=== PATIENT | female | born 1965 | race Caucasian/White ===

== ENCOUNTER → 2017-05-14 | Outpatient (CLI) | payer MEDICARE, BC ==
[2015-06-25 12:47] VITALS: BMI 43.0
[~2017-05-14] MED LIST: ACE3 PO; ALB0.5 IH; ALBU8.5H IH; ALBU8.5H INH; AMLO-101 PO; AMLO-96 PO; AMOX-362 PO; AMOX-559 PO; ARI2 PO; ASPI-1471 PO; AZIT-1 PO; AZIT-18 PO; BENZ100C26 PO; BENZ100C4 PO; BISA-229 PO; BUDE10.2 INH; BUPR-126 PO; BUPR-134 PO; BUPR200T18 PO; BUTA1CAP4 PO; BUTA1CAP6 PO; CAR6.25 PO; CEF300 PO; CEFD300C35 PO; CEFU250T11 PO; CEPH-13 PO; CEPH250C37 PO; CEPH500C24 PO; CHLO25TA19 PO; CLIN300C99 PO; CLO10 MT; CLON-298 PO; CODE118S5; CYA1000 PO; CYCL10TA29 PO; DEX1 PO; DIA5 PO; DIAZ-305 PO; DIAZ-311 PO; DICL100G39 TOP; DIPH-740 PO; DIVA-1 PO; DIVA-6 PO; DIVSR125 PO; DOCU-416 PO; DOXY-179 PO; DOXY-181 PO; DOXYCYCLINE; DULO30CA35 PO; DULO60CA56 PO; EPIN0.3P15 IM; ESCI10TA8 PO; ESCI20TA38 PO; ESTR-25 PO; FAMO20TA28 PO; FAMO40TA66 PO; FLU45SYR25 IM ONLY; FLUC150T40 PO; FLUT16SP19 NS; FLUT1DIS28 IH; FLUT1DIS29 IH; FURO20TA19 PO; GABA-547 PO; HALO5TAB17 PO; HYDR-2966 PO; HYDR-317; HYDR-385 PO; HYDR-4225 PO; HYDR100C9 PO; HYDR12.556 PO; HYDR12.561 PO; HYDR25CA13 PO; HYDR25CA83 PO; HYDR28CR TP; HYDR2TAB74 PO; HYDR473S13 PO; HYDR50CA47 PO; IBUP-56 PO; IBUP600T22 PO; IBUP800T37 PO; IPRA0.2S8 IH; IPRA3AMP21 IH; KET10 PO; LEVO50TA86 PO; LIOT25TA19 PO; LISI-351 PO; LOR5/325 PO; LURA20TA PO; MAGN250T34 PO; MAGN250T5 PO; MAGN300C3 PO; MAGN400T52 PO; MECL25TA27 PO; MELO-205 PO; MELO-207 PO; META-1 PO; META800T18 PO; METH-280 PO; METH4TAB66 PO; METO25TA23 PO; METO50TA19 PO; MULT-865 PO; MULT1CAP59 PO; NO MEDS; NOR25 PO; NYST15CR32 TP; NYST60PO9 TP; OMEG1CAP39 PO; OMEP-137 PO; OMEP40CA48 PO; ONDA4TAB PO; ONDA4TAB97 PO; ORP100 PO; OXYC-869 PO; PANT40TA65 PO; PARO30TA71 PO; PHEN30SP8 MT; POTA-23 PO; POTA20TA94 PO; POTA8TAB41 PO; PRAM0.1225 PO; PRAM0.2524 PO; PRAM0.5T23 PO; PRAM0.5T27 PO; PRED-1 PO; PRED20TA6 PO; PROM-110 PO; PROM5SYR PO; QUET50TA21 PO; RANI-324 PO; RANI150C17 PO; RIZA10TA PO; ROBC PO; SUMA25TA26 PO; SUMA25TA27 PO; TIO18R INH; TIZA4CAP6 PO; TOPI-121 PO; TRAM-420 PO; TRIA5T TOP; VARE1TAB3 PO; [UNRECOGNIZED DRUG - CODE] PO; [UNRECOGNIZED DRUG - OTHER]; depakote
== END ==
LOC: LAB 11:34
PROVIDERS: ATTEND Nurse Practitioner Psychiatric/Mental Health
DX: Z51.81 Encounter for therapeutic drug level monitoring (principal); Z79.899 Other long term (current) drug therapy
CPT/HCPCS: 36415; 80164; 82040; 82247; 82310; 82374; 82435; 82565; 82947; 84075; 84132; 84155; 84295; 84450; 84460; 84520

== ENCOUNTER → 2017-05-18 | Outpatient (CLI) | payer MEDICARE, BC ==
[2015-06-25 12:47] VITALS: BMI 43.0
== END ==
LOC: LAB 13:45
PROVIDERS: ATTEND Emergency Medicine
DX: R20.2 Paresthesia of skin (principal)
CPT/HCPCS: 36415; 82607; 84443

== ENCOUNTER → 2017-05-26 | Outpatient (CLI) | payer MEDICARE, BC ==
[2015-06-25 12:47] VITALS: BMI 43.0
--- NOTE | 2017-05-26 17:32 | RADIOLOGY IMAGING REPORT ---
FACILITY: [facility] PATIENT NAME: FLORENCIO CRUZ : [id number] MR: [id number] V: [id number] EXAM DATE: ORDERING PHYSICIAN: SKINNY EMMANUEL TECHNOLOGIST: Marlee Rios PROCEDURE:BILATERAL DIGITAL SCREENING MAMMOGRAM WITH CAD ASSISTED INTERPRETATION & 3D TOMOSYNTHESIS COMPARISON:Prior mammograms 03/04/16, 08/23/15, 04/26/15 INDICATIONS:Screening FINDINGS: A small amount of fibroglandular tissue is seen throughout the breasts. The parenchymal pattern has remained stable allowing for difference in mammographic technique & patient positioning. Again noted are numerous scattered calcifications throughout the breasts. There is a stereotactic biopsy clip in the upper outer quadrant of the left breast. There is no evidence of malignant appearing mass, malignant appearing calcifications or other secondary sign of malignancy in either breast. DIAGNOSTIC CATEGORY 2--BENIGN FINDING. RECOMMENDATIONS: ROUTINE MAMMOGRAM AND CLINICAL EVALUATION. IMPRESSION: BIRADS 2: Benign finding No significant abnormality is seen Dictated by: Cris Verma M.D. on 05/26/2017 at 11:43 Transcribed by: TAMI on 05/26/2017 at 13:29 Approved by: Cris Verma M.D. on 05/26/2017 at 17:32 [facility]
== END ==
LOC: MAMO 02:23
PROVIDERS: ATTEND Emergency Medicine
DX: Z12.31 Encounter for screening mammogram for malignant neoplasm of breast (principal); R92.1 Mammographic calcification found on diagnostic imaging of breast
CPT/HCPCS: 77063; 77067

== ENCOUNTER 2017-06-02 15:03 | Emergency (ER) | payer MEDICARE, BC ==
[2015-06-25 12:47] VITALS: Wt 120.2 kg
--- NOTE | 2017-06-02 15:18 | ER Report ---
History and Physical Time Seen By MD: 15:17 HPI/ROS CHIEF COMPLAINT: Short of breath HISTORY OF PRESENT ILLNESS: This is a 51-year-old female who presents to the emergency department for stomach joint aches and increased shortness of breath. Patient states that since Thursday she's had some increased shortness of breath she feels secondary to her COPD. Patient also states since Thursday she's had aches in all her joints just not feeling very well no chills no fevers, just doesn't feel very well. Patient states she's been using more of her nebulizers at home. Patient is still using her 2 L of oxygen as prescribed. Patient denies chest pain, nausea, vomiting, diarrhea or dysuria. Patient also states that she does feel like she has some edema to her lower extremities that has increased since Thursday as well. REVIEW OF SYSTEMS: Constitutional: No fever, no chills. Eyes: No discharge. ENT: No sore throat. Cardiovascular: No chest pain, no palpitations. Respiratory: As above. Gastrointestinal: No abdominal pain, no vomiting. Genitourinary: No hematuria. Musculoskeletal: As above. Skin: No rashes. Neurological: No headache. Allergies: Coded Allergies: aripiprazole (Verified Allergy, Intermediate, RASH, 06/02/17) lithium (Verified Allergy, Intermediate, RASH, 06/02/17) lurasidone (Verified Allergy, Intermediate, 06/02/17) quetiapine (Verified Allergy, Intermediate, DIZZY, 06/02/17) DIzzy varenicline (Verified Allergy, Intermediate, SWELLING, 06/02/17) ciprofloxacin (Verified Allergy, Mild, N/V, 06/02/17) sulfamethoxazole (Verified Allergy, Mild, HIVES, 06/02/17) topiramate (Verified Allergy, Mild, UPSET STOMACH, 06/02/17) Upset stomach trimethoprim (Verified Allergy, Mild, HIVES, 06/02/17) haloperidol (Verified Adverse Reaction, Severe, DYSTONIC REACTION, 06/02/17 ) propofol (Verified Adverse Reaction, Severe, HALLUCINATIONS, 06/02/17) PT STATES "I HEARD VOICES TELLING ME TO KILL MYSELF THE NIGHT AFTER I HAD A COLONOSCOPY" amoxicillin (Verified Adverse Reaction, Intermediate, Pruritus , 06/02/17) adhesive tape (Verified Adverse Reaction, Mild, RASH, 06/02/17) fluticasone (Verified Adverse Reaction, Mild, THRUSH, 06/02/17) salmeterol (Verified Adverse Reaction, Mild, THRUSH, 06/02/17) Home Meds Active Scripts Azithromycin 250 Mg Tab (AZITHROMYCIN 250 MG TAB) 250 Mg Tablet, 1 TAB PO QDAY, #6 TAB 0 Refills Take 2 tabs today and then 1 tab a day until gone. Prov:GUILLE OTDD THERMAL MOLDER-BC 06/02/17 Prednisone 10 Mg Tab (PREDNISONE 10 MG TAB) 10 Mg Tablet, 6 TAB PO QDAY, #42 TAB 6 tabs a day for 2 days , then cut down by 1 tab every 2 days until gone. Prov:SKINNY EMMANUEL MD 06/02/17 Pramipexole Di-Hcl (MIRAPEX) 0.5 Mg Tablet, 0.5 MG PO QHS, #30 TAB 11 Refills Prov:SKINNY EMMANUEL MD 05/14/17 Tiotropium [place] (SPIRIVA) 18 Mcg/Cap Inh, 2 PUFF INH DAILY, #1 INH 11 Refills Prov:SKINNY EMMANUEL MD 05/14/17 Ipratropium/Albuterol Sulfate (IPRAT-ALBUT 0.5-3(2.5) MG/3 ML) 3 Ml Ampul.neb, 3 ML IH Q4H Y for PRN, #100 UNITS 0 Refills Prov:SKINNY EMMANUEL MD 04/23/17 Famotidine (FAMOTIDINE) 40 Mg Tablet, 40 MG PO QDAY, #30 TAB Prov:SKINNY EMMANUEL MD 04/15/17 Nystatin (NYSTOP) 60 Gm Powder, 1 DONALD TP BID, #1 BOTTLE 0 Refills APPLY TO AFFECTED AREA TWICE A DAY Prov:SKINNY EMMANUEL MD 03/13/17 Reported Medications Divalproex Sodium (DEPAKOTE) Unknown Strength Tab, PO BID, TAB 05/13/17 Escitalopram Oxalate (LEXAPRO) Unknown Strength Tablet, PO QDAY, TAB 05/13/17 Ibuprofen (IBUPROFEN) 200 Mg Tablet, 2 TAB PO Q8H Y for PAIN, TAB (MOTRIN): TAKE 400 MG EVERY 8 HRS NEEDED FOR PAIN. 02/03/17 Hydroxyzine Pamoate (HYDROXYZINE PAMOATE) 25 Mg Capsule, 25 TAB PO Q8H Y for ANXIETY/INSOMNIA 01/27/17 Duloxetine Hcl (CYMBALTA) 60 Mg Capsule.dr, 90 MG PO QDAY, #5 CAP 60mg in AM, 30mg at HS 01/27/17 Albuterol Sulfate 90 Mcg/Act (PROAIR HFA 90 MCG/ACT) 8.5 Gm Hfa.aer.ad, 1-2 PUFF IH Q4-6H Y for DYSPNEA, INHALER 01/27/17 Multivitamin (MULTIVITAMINS) 1 Each Capsule, 1 EACH PO DAILY, CAPSULE 12/08/16 Budesonide/Formoterol Fumarate (SYMBICORT 160-4.5 MCG INHALER) 10.2 Gm Inh, 2 PUFF INH BID, INH 12/04/16 Discontinued Reported Medications [depakote] No Conflict Check 04/01/17 Discontinued Scripts Epinephrine (EPIPEN 2-CLAUDETTE) 0.3 Mg/0.3 Ml Pen.injctr, 0.3 MG IM ONCE Y for Anaphylaxis, #1 PACK 1 Refill Use per package instructions. 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 Reviewed Nurses Notes: Yes Hx Smoking: Yes Smoking Status: Current: Some Days Smoker Exposure to Second Hand Smoke?: No Hx Substance Use Disorder: Yes Hx Alcohol Use: No Constitutional Vital Sign - Last 24 Hours 06/02/17 06/02/17 06/02/17 06/02/17 15:08 15:17 15:18 15:30 Temp 98.2 Pulse 76 75 Resp 16 B/P (MAP) 151/86 (107) 151/86 151/89 (109) Pulse Ox 93 93 O2 Delivery Nasal Cannula 2/2706/02/17 06/02/17 06/02/17 15:40 15:40 15:45 16:00 Pulse 69 73 Resp 16 16 B/P (MAP) ???/??? (1665) Pulse Ox 95 O2 Delivery Nasal Cannula O2 Flow Rate 1.5 06/02/17 06/02/17 06/02/17 06/02/17 16:02 16:05 16:20 16:30 Pulse ? B/P (MAP) 136/73 (94) Pulse Ox 93 O2 Flow Rate 2.0 06/02/17 06/02/17 06/02/17 06/02/17 16:35 16:50 17:00 17:05 Pulse 73 72 74 B/P (MAP) 134/86 (102) Pulse Ox 91 92 95 06/02/17 06/02/17 06/02/17 17:20 17:30 17:36 Pulse 92 B/P (MAP) 129/64 (85) 139/83 (101) Pulse Ox 92 Physical Exam General Appearance: The patient is alert, has no immediate need for airway protection and no signs of toxicity. Eyes: Pupils equal and round no pallor or injection. ENT, Mouth: Mucous membranes are dry with a geographic tongue. Respiratory: There are no retractions, lungs are clear and diminished to auscultation. Cardiovascular: Regular rate and rhythm, no murmurs clicks or rubs. Gastrointestinal: Abdomen is soft and non tender, no masses, bowel sounds normal. Neurological: Alert and oriented 4. Moving all extremities. Following all commands. No focal neuro deficits. Skin: Warm and dry, no rashes. Musculoskeletal: Neck is supple non tender. Extremities are nontender, nonswollen and have full range of motion. DIFFERENTIAL DIAGNOSIS: After history and physical exam differential diagnosis was considered for shortness of breath including but not limited to pulmonary infectious process, COPD, asthma, pulmonary embolus and congestive heart failure. Medical Decision Making Data Points Result Diagram: 06/02/17 1533 06/02/17 1533 Laboratory Hematology Test 06/02/17 15:33 Red Blood Count 4.52 M/uL (4.17-5.56) Mean Corpuscular Volume 91.3 fL (80.0-96.0) Mean Corpuscular Hemoglobin 31.3 pg (26.0-33.0) Mean Corpuscular Hemoglobin Concent 34.3 g/dL (32.0-36.0) Red Cell Distribution Width 13.4 % (11.5-14.5) Mean Platelet Volume 9.6 fL (7.2-11.1) Neutrophils (%) (Auto) 84.2 % (39.4-72.5) Lymphocytes (%) (Auto) 11.7 % (17.6-49.6) Monocytes (%) (Auto) 3.5 % (4.1-12.4) Eosinophils (%) (Auto) 0.3 % (0.4-6.7) Basophils (%) (Auto) 0.3 % (0.3-1.4) Nucleated RBC Relative Count (auto) 0.0 /100WBC Neutrophils # (Auto) 6.0 K/uL (2.0-7.4) Lymphocytes # (Auto) 0.8 K/uL (1.3-3.6) Monocytes # (Auto) 0.2 K/uL (0.3-1.0) Eosinophils # (Auto) 0.0 K/uL (0.0-0.5) Basophils # (Auto) 0.0 K/uL (0.0-0.1) Nucleated RBC Absolute Count (auto) 0.00 K/uL Sodium Level 136 mmol/L (137-145) Potassium Level 4.1 mmol/L (3.5-5.0) Chloride Level 101 mmol/L (98-107) Carbon Dioxide Level 27 mmol/L (22-31) Blood Urea Nitrogen 13 mg/dl (7-18) Creatinine 0.90 mg/dl (0.52-1.04) Glomerular Filtration Rate Calc > 60.0 Random Glucose 99 mg/dl (75-110) Calcium Level 8.9 mg/dl (8.4-10.2) Total Bilirubin 0.2 mg/dl (0.2-1.3) Aspartate Amino Transf (AST/SGOT) 16 U/L (0-35) Alanine Aminotransferase (ALT/SGPT) 26 U/L (0-56) Alkaline Phosphatase 66 U/L (0-126) Total Protein 6.7 gm/dl (6.3-8.2) Albumin 3.7 g/dl (3.5-5.0) Influenza Virus Type A (PCR) Negative (NEGATIVE) Influenza Virus Type B (PCR) Negative (NEGATIVE) Chemistry Test 06/02/17 15:33 White Blood Count 7.1 k/uL (4.5-11.0) Red Blood Count 4.52 M/uL (4.17-5.56) Hemoglobin 14.2 g/dL (12.0-16.0) Hematocrit 41.3 % (34.0-47.0) Mean Corpuscular Volume 91.3 fL (80.0-96.0) Mean Corpuscular Hemoglobin 31.3 pg (26.0-33.0) Mean Corpuscular Hemoglobin Concent 34.3 g/dL (32.0-36.0) Red Cell Distribution Width 13.4 % (11.5-14.5) Platelet Count 162 K/uL (150-450) Mean Platelet Volume 9.6 fL (7.2-11.1) Neutrophils (%) (Auto) 84.2 % (39.4-72.5) Lymphocytes (%) (Auto) 11.7 % (17.6-49.6) Monocytes (%) (Auto) 3.5 % (4.1-12.4) Eosinophils (%) (Auto) 0.3 % (0.4-6.7) Basophils (%) (Auto) 0.3 % (0.3-1.4) Nucleated RBC Relative Count (auto) 0.0 /100WBC Neutrophils # (Auto) 6.0 K/uL (2.0-7.4) Lymphocytes # (Auto) 0.8 K/uL (1.3-3.6) Monocytes # (Auto) 0.2 K/uL (0.3-1.0) Eosinophils # (Auto) 0.0 K/uL (0.0-0.5) Basophils # (Auto) 0.0 K/uL (0.0-0.1) Nucleated RBC Absolute Count (auto) 0.00 K/uL Glomerular Filtration Rate Calc > 60.0 Calcium Level 8.9 mg/dl (8.4-10.2) Total Bilirubin 0.2 mg/dl (0.2-1.3) Aspartate Amino Transf (AST/SGOT) 16 U/L (0-35) Alanine Aminotransferase (ALT/SGPT) 26 U/L (0-56) Alkaline Phosphatase 66 U/L (0-126) Total Protein 6.7 gm/dl (6.3-8.2) Albumin 3.7 g/dl (3.5-5.0) Influenza Virus Type A (PCR) Negative (NEGATIVE) Influenza Virus Type B (PCR) Negative (NEGATIVE) EKG/Imaging Imaging Location: [facility] [place] Patient: Natividad Loaiza : 1965 Visit/Account:[id number] Date of Sevice: 06/02/2017 Exam type: CHEST PA AND LAT History: short of breath Comparison: February 13, 2017. Findings: The lungs are free of acute effusions, infiltrates or edema. There are small linear band of atelectasis in the lower lobes No evidence of a pneumothorax or pneumomediastinum The cardiac silhouette is normal. The trachea is in midline. There are mild degenerative changes of the thoracic spine. IMPRESSION: 1. There is a small linear band of atelectasis in the lower lobes. Report Dictated By: Cris Verma MD at 06/02/2017 4:21 PM Report E-Signed By: Cris Verma MD at 06/02/2017 4:22 PM WSN:[email or web address] ED Course/Re-evaluation Clinical Indication for ER IV: IV Access ED Course The patient was admitted to a room. A history of physical were obtained. Different diagnoses were considered. A CBC, CMP were obtained. Lab studies unremarkable. A duo neb was given with no changes. A 2 view chest x-ray showing small linear band of atelectasis in the lower lobes. I did review these results with the patient. Given her history of COPD and current presentation I have elected to treat the patient as a pneumonia with a Z-pack, which she states she has had in the past and works well. I was going to start the patient on a steroid burst too, however she did just get a prescription today for a prednisone taper from her primary care provider. The patient had no other questions or concerns at this time and was discharged home. she was encouraged to follow up with her PCP for any other concerns and return to the ED for worsening symptoms. She was in agreement with this plan of care. She was also instructed to take ibuprofen or Tylenol as needed for her joint aches and pains. Decision to Disposition Date: Jun 02, 2017 Decision to Disposition Time: 17:15 Depart Departure Latest Vital Signs Vital Signs Date Time Temp Pulse Resp B/P (MAP) Pulse Ox O2 Delivery O2 Flow Rate FiO2 06/02/17 17:36 139/83 (101) 06/02/17 17:20 92 92 06/02/17 16:02 2.0 06/02/17 15:45 16 06/02/17 15:40 Nasal Cannula 06/02/17 15:17 98.2 Core Temperature (Celsius): 37.23 Impression: Primary Impression: Pneumonia Condition: Improved Disposition: HOME OR SELF-CARE Referrals: SKINNY EMMANUEL MD (PCP) New Scripts Azithromycin 250 Mg Tab (AZITHROMYCIN 250 MG TAB) 250 Mg Tablet 1 TAB PO QDAY, #6 TAB 0 Refills Take 2 tabs today and then 1 tab a day until gone. Prov: GUILLE TODD THERMAL MOLDER- 06/02/17 Patient Instructions: Bacterial Pneumonia (ED) Additional Instructions: Drink plenty of water. Get plenty of rest. Take the antibiotics as prescribed. Take the steroids as prescribed. Follow-up with your primary care provider in 7-14 days if no improvement. May return to the emergency department for any other concerns or worsening symptoms. Problem Qualifiers Primary Impression: Pneumonia Pneumonia type: due to unspecified organism Laterality: unspecified laterality Lung location: unspecified part of lung Qualified Codes: J18.9 - Pneumonia, unspecified organism GUILLE TODD THERMAL MOLDER- Jun 02, 2017 15:17
[2017-06-02] MEDS ORDERED: ALBUTEROL/IPRATROPIUM 3 ML NEB NEB ONE (15:40)
[2017-06-02 16:04] LABS: PLATELET COUNT, AUTOMATED 162 K/uL (150-450)
--- NOTE | 2017-06-02 16:27 | RADIOLOGY IMAGING REPORT ---
[facility] PATIENT NAME: Natividad Loaiza : 1965 MR: [id number] V: [id number] EXAM DATE: ORDERING PHYSICIAN: GUILLE TODD TECHNOLOGIST: Location: [facility] Patient: Natividad Loaiza : 1965 Visit/Account:[id number] Date of Sevice: 06/02/2017 Exam type: CHEST PA AND LAT History: short of breath Comparison: February 13, 2017. Findings: The lungs are free of acute effusions, infiltrates or edema. There are small linear band of atelecta sis in the lower lobes No evidence of a pneumothorax or pneumomediastinum The cardiac silhouette is n ormal. The trachea is in midline. There are mild degenerative changes of the thoracic spine. IMPRESSION: 1. There is a small linear band of atelectasis in the lower lobes. Report Dictated By: Cris Verma MD at 06/02/2017 4:21 PM Report E-Signed By: Cris Verma MD at 06/02/2017 4:22 PM WSN:[email or web address]
[2017-06-02] MEDS ORDERED: AZIT-18 PO (17:17)
[2017-06-02 17:36] VITALS: BP 139/83
[2017-06-08] MEDS ORDERED: BUDE10.2 INH (15:28)
== END 2017-06-02 17:40 | disposition home or self-care (01) ==
LOC: ER 15:10
DX: J18.9 Pneumonia, unspecified organism (principal)
CPT/HCPCS: 71046; 85025; 87502; 94640; 99284; J7620; 82040; 82247; 82310; 82374; 82435; 82565; 82947; 84075; 84132; 84155; 84295; 84450; 84460; 84520

== ENCOUNTER 2017-06-03 13:29 | Emergency (ER) | payer MEDICARE, BC ==
[2015-06-25 12:47] VITALS: BMI 43.0
--- NOTE | 2017-06-03 13:47 | ER Report ---
History and Physical Time Seen By MD: 13:40 Hx. of Stated Complaint: Pt reporting increased dizzyness and chest pain since yesterday. HPI/ROS CHIEF COMPLAINT: Shortness of breath pleuritic chest discomfort HISTORY OF PRESENT ILLNESS: Patient is a 51-year-old morbidly obese female frequent visitor to the emergency department was seen here yesterday for shortness of breath and potential COPD exacerbation returns 24 hours later to the emergency department with consistent shortness of breath and pleuritic chest discomfort left greater than right. Patient was seen and evaluated atelectasis demonstrated on EKG or on chest x-ray due to comorbidities of COPD and azithromycin was initiated patient's symptoms have not improved she's been using supplemental oxygen home approximately 2 L no orthopnea no PND chest pain' s diagnosed 3rd described as being left-sided mildly pleuritic worse with exertion. Patient has no abdominal pain patient has persistent vertigo has Dramamine at home and has not taken it patient has no additional complaints this time REVIEW OF SYSTEMS: Respiratory: No cough shortness of breath exertional dyspnea Cardiovascular: Mild left versus greater than right pleuritic chest discomfort no palpitations Gastrointestinal: No vomiting, no abdominal pain. Musculoskeletal: No back pain. Remainder of the 14 system rev: Yes Allergies: Coded Allergies: aripiprazole (Verified Allergy, Intermediate, RASH, 06/02/17) lithium (Verified Allergy, Intermediate, RASH, 06/02/17) lurasidone (Verified Allergy, Intermediate, 06/02/17) quetiapine (Verified Allergy, Intermediate, DIZZY, 06/02/17) DIzzy varenicline (Verified Allergy, Intermediate, SWELLING, 06/02/17) ciprofloxacin (Verified Allergy, Mild, N/V, 06/02/17) sulfamethoxazole (Verified Allergy, Mild, HIVES, 06/02/17) topiramate (Verified Allergy, Mild, UPSET STOMACH, 06/02/17) Upset stomach trimethoprim (Verified Allergy, Mild, HIVES, 06/02/17) haloperidol (Verified Adverse Reaction, Severe, DYSTONIC REACTION, 06/02/17 ) propofol (Verified Adverse Reaction, Severe, HALLUCINATIONS, 06/02/17) PT STATES "I HEARD VOICES TELLING ME TO KILL MYSELF THE NIGHT AFTER I HAD A COLONOSCOPY" amoxicillin (Verified Adverse Reaction, Intermediate, Pruritus , 06/02/17) adhesive tape (Verified Adverse Reaction, Mild, RASH, 06/02/17) fluticasone (Verified Adverse Reaction, Mild, THRUSH, 06/02/17) salmeterol (Verified Adverse Reaction, Mild, THRUSH, 06/02/17) Home Meds Active Scripts Azithromycin 250 Mg Tab (AZITHROMYCIN 250 MG TAB) 250 Mg Tablet, 1 TAB PO QDAY, #6 TAB 0 Refills Take 2 tabs today and then 1 tab a day until gone. Prov:GUILLE TODD TABLE LEVER OPERATOR-BC 06/02/17 Prednisone 10 Mg Tab (PREDNISONE 10 MG TAB) 10 Mg Tablet, 6 TAB PO QDAY, #42 TAB 6 tabs a day for 2 days , then cut down by 1 tab every 2 days until gone. Prov:SKINNY EMMANUEL MD 06/02/17 Pramipexole Di-Hcl (MIRAPEX) 0.5 Mg Tablet, 0.5 MG PO QHS, #30 TAB 11 Refills Prov:SKINNY EMMANUEL MD 05/14/17 Tiotropium [place] (SPIRIVA) 18 Mcg/Cap Inh, 2 PUFF INH DAILY, #1 INH 11 Refills Prov:SKINNY EMMANUEL MD 05/14/17 Ipratropium/Albuterol Sulfate (IPRAT-ALBUT 0.5-3(2.5) MG/3 ML) 3 Ml Ampul.neb, 3 ML IH Q4H Y for PRN, #100 UNITS 0 Refills Prov:SKINNY EMMANUEL MD 04/23/17 Famotidine (FAMOTIDINE) 40 Mg Tablet, 40 MG PO QDAY, #30 TAB Prov:SKINNY EMMANUEL MD 04/15/17 Nystatin (NYSTOP) 60 Gm Powder, 1 DONALD TP BID, #1 BOTTLE 0 Refills APPLY TO AFFECTED AREA TWICE A DAY Prov:SKINNY EMMANUEL MD 03/13/17 Reported Medications Divalproex Sodium (DEPAKOTE) Unknown Strength Tab, PO BID, TAB 05/13/17 Escitalopram Oxalate (LEXAPRO) Unknown Strength Tablet, PO QDAY, TAB 05/13/17 Ibuprofen (IBUPROFEN) 200 Mg Tablet, 2 TAB PO Q8H Y for PAIN, TAB (MOTRIN): TAKE 400 MG EVERY 8 HRS NEEDED FOR PAIN. 02/03/17 Hydroxyzine Pamoate (HYDROXYZINE PAMOATE) 25 Mg Capsule, 25 TAB PO Q8H Y for ANXIETY/INSOMNIA 01/27/17 Duloxetine Hcl (CYMBALTA) 60 Mg Capsule.dr, 90 MG PO QDAY, #5 CAP 60mg in AM, 30mg at HS 01/27/17 Albuterol Sulfate 90 Mcg/Act (PROAIR HFA 90 MCG/ACT) 8.5 Gm Hfa.aer.ad, 1-2 PUFF IH Q4-6H Y for DYSPNEA, INHALER 01/27/17 Multivitamin (MULTIVITAMINS) 1 Each Capsule, 1 EACH PO DAILY, CAPSULE 12/08/16 Budesonide/Formoterol Fumarate (SYMBICORT 160-4.5 MCG INHALER) 10.2 Gm Inh, 2 PUFF INH BID, INH 12/04/16 Discontinued Reported Medications [depakote] No Conflict Check 04/01/17 Discontinued Scripts Epinephrine (EPIPEN 2-CLAUDETTE) 0.3 Mg/0.3 Ml Pen.injctr, 0.3 MG IM ONCE Y for Anaphylaxis, #1 PACK 1 Refill Use per package instructions. Prov:OMAR WEBSTER DNP, TABLE LEVER OPERATOR-BC 03/27/17 Ondansetron Hcl (ZOFRAN) 4 Mg Tablet, 4 MG PO Q6H Y for NAUSEA/VOMITING, #10 Prov:DENIA PUGA DO 02/23/17 Reviewed Nurses Notes: Yes Old Medical Records Reviewed: Yes Hx Smoking: Yes Smoking Status: Current: Some Days Smoker Exposure to Second Hand Smoke?: No Hx Substance Use Disorder: Yes Hx Alcohol Use: No Constitutional Vital Sign - Last 24 Hours 06/03/17 13:35 Temp 99.6 Pulse 87 Resp 20 B/P (MAP) 162/105 Pulse Ox 87 O2 Delivery Room Air Physical Exam General Appearance: The patient is alert, has no immediate need for airway protection and no current signs of toxicity. [ ] Eyes: Pupils equal and round no injection. Respiratory: Chest is non tender, lungs are clear to auscultation. Cardiac: regular rate and rhythm [ ] Gastrointestinal: Abdomen is soft and non tender, no masses, bowel sounds normal. Musculoskeletal: Neck: Neck is supple and non tender. Extremities have full range of motion and are non tender. Skin: No rashes or lesions. [ ] DIFFERENTIAL DIAGNOSIS: After history and physical exam differential diagnosis was considered for COPD CHF exacerbation pulmonary emboli aortic dissection cardiomyopathy cardiomegaly hypertrophic cardiomyopathy acute myocardial infarction acute coronary syndrome Medical Decision Making Data Points Result Diagram: 06/03/17 1351 06/03/17 1351 Laboratory Hematology Test 06/03/17 13:51 Red Blood Count 4.33 M/uL (4.17-5.56) Mean Corpuscular Volume 91.9 fL (80.0-96.0) Mean Corpuscular Hemoglobin 31.0 pg (26.0-33.0) Mean Corpuscular Hemoglobin Concent 33.7 g/dL (32.0-36.0) Red Cell Distribution Width 13.3 % (11.5-14.5) Mean Platelet Volume 9.6 fL (7.2-11.1) Neutrophils (%) (Auto) 82.7 % (39.4-72.5) Lymphocytes (%) (Auto) 11.2 % (17.6-49.6) Monocytes (%) (Auto) 5.3 % (4.1-12.4) Eosinophils (%) (Auto) 0.0 % (0.4-6.7) Basophils (%) (Auto) 0.8 % (0.3-1.4) Nucleated RBC Relative Count (auto) 0.0 /100WBC Neutrophils # (Auto) 6.5 K/uL (2.0-7.4) Lymphocytes # (Auto) 0.9 K/uL (1.3-3.6) Monocytes # (Auto) 0.4 K/uL (0.3-1.0) Eosinophils # (Auto) 0.0 K/uL (0.0-0.5) Basophils # (Auto) 0.1 K/uL (0.0-0.1) Nucleated RBC Absolute Count (auto) 0.00 K/uL Peripheral Blood Smear No Y/N D-Dimer Quantitative (PE/DVT) 0.37 ug/ml (0-0.50) Sodium Level 138 mmol/L (137-145) Potassium Level 4.1 mmol/L (3.5-5.0) Chloride Level 102 mmol/L (98-107) Carbon Dioxide Level 26 mmol/L (22-31) Blood Urea Nitrogen 13 mg/dl (7-18) Creatinine 0.90 mg/dl (0.52-1.04) Glomerular Filtration Rate Calc > 60.0 Random Glucose 109 mg/dl (75-110) Calcium Level 9.2 mg/dl (8.4-10.2) Total Bilirubin 0.2 mg/dl (0.2-1.3) Aspartate Amino Transf (AST/SGOT) 18 U/L (0-35) Alanine Aminotransferase (ALT/SGPT) 21 U/L (0-56) Alkaline Phosphatase 64 U/L (0-126) Troponin I < 0.012 ng/ml B-Type Natriuretic Peptide 26 pg/ml (0-100) Total Protein 6.7 gm/dl (6.3-8.2) Albumin 3.8 g/dl (3.5-5.0) Chemistry Test 06/03/17 13:51 White Blood Count 7.9 k/uL (4.5-11.0) Red Blood Count 4.33 M/uL (4.17-5.56) Hemoglobin 13.4 g/dL (12.0-16.0) Hematocrit 39.8 % (34.0-47.0) Mean Corpuscular Volume 91.9 fL (80.0-96.0) Mean Corpuscular Hemoglobin 31.0 pg (26.0-33.0) Mean Corpuscular Hemoglobin Concent 33.7 g/dL (32.0-36.0) Red Cell Distribution Width 13.3 % (11.5-14.5) Platelet Count 203 K/uL (150-450) Mean Platelet Volume 9.6 fL (7.2-11.1) Neutrophils (%) (Auto) 82.7 % (39.4-72.5) Lymphocytes (%) (Auto) 11.2 % (17.6-49.6) Monocytes (%) (Auto) 5.3 % (4.1-12.4) Eosinophils (%) (Auto) 0.0 % (0.4-6.7) Basophils (%) (Auto) 0.8 % (0.3-1.4) Nucleated RBC Relative Count (auto) 0.0 /100WBC Neutrophils # (Auto) 6.5 K/uL (2.0-7.4) Lymphocytes # (Auto) 0.9 K/uL (1.3-3.6) Monocytes # (Auto) 0.4 K/uL (0.3-1.0) Eosinophils # (Auto) 0.0 K/uL (0.0-0.5) Basophils # (Auto) 0.1 K/uL (0.0-0.1) Nucleated RBC Absolute Count (auto) 0.00 K/uL Peripheral Blood Smear No Y/N D-Dimer Quantitative (PE/DVT) 0.37 ug/ml (0-0.50) Glomerular Filtration Rate Calc > 60.0 Calcium Level 9.2 mg/dl (8.4-10.2) Total Bilirubin 0.2 mg/dl (0.2-1.3) Aspartate Amino Transf (AST/SGOT) 18 U/L (0-35) Alanine Aminotransferase (ALT/SGPT) 21 U/L (0-56) Alkaline Phosphatase 64 U/L (0-126) Troponin I < 0.012 ng/ml B-Type Natriuretic Peptide 26 pg/ml (0-100) Total Protein 6.7 gm/dl (6.3-8.2) Albumin 3.8 g/dl (3.5-5.0) Coagulation Test 06/03/17 13:51 D-Dimer Quantitative (PE/DVT) 0.37 ug/ml ED Course/Re-evaluation ED Course ED clinical course medical decision making 51-year-old female who came in with shortness of breath was seen here 24 hours ago workup comprehensive U d-dimer negative BNP negative troponin and EKG and chest x-ray also normal vitals of a normal throughout her stay negative physical exam no indication for further testing or admission will diagnosed with vertigo and chest pain unknown etiology Decision to Disposition Date: Jun 03, 2017 Decision to Disposition Time: 14:44 Depart Departure Latest Vital Signs Vital Signs Date Time Temp Pulse Resp B/P (MAP) Pulse Ox O2 Delivery O2 Flow Rate FiO2 06/03/17 13:35 99.6 87 20 162/105 87 Room Air Core Temperature (Celsius): 37.23 Impression: Primary Impression: Vertigo Condition: Improved Disposition: HOME OR SELF-CARE Referrals: SKINNY EMMANUEL MD (PCP) 5 Days Patient Instructions: Chest Pain (DC), Vertigo (DC) NATHALY CUELLAR MD Jun 03, 2017 13:47
[2017-06-03 14:04] LABS: PLATELET COUNT, AUTOMATED 203 K/uL (150-450)
[2017-06-03 14:30] VITALS: BP 149/83
--- NOTE | 2017-06-03 14:41 | RADIOLOGY IMAGING REPORT ---
FACILITY: [facility] - [place] PATIENT NAME: Natividad Loaiza : 1965 MR: [id number] V: [id number] EXAM DATE: ORDERING PHYSICIAN: NATHALY CUELLAR TECHNOLOGIST: Location: [facility] Patient: Natividad Loaiza : 1965 Visit/Account:[id number] Date of Sevice: 06/03/2017 2 VIEWS CHEST INDICATION: Shortness of breath and left-sided chest pain. COMPARISON: 06/02/2017. FINDINGS: Cardiomediastinal silhouette and pulmonary vessels within normal limits. There is no focal infiltrate or lobar consolidation. There is no pneumothorax or pleural effusion. No nodule. Upper abdomen is unremarkable. No acute bony abnormality. IMPRESSION: 1. No acute cardiopulmonary process. Report Dictated By: Gilberto Sanford at 06/03/2017 2:35 PM Report E-Signed By: Gilberto Sanford at 06/03/2017 2:36 PM WSN:[id number]
--- NOTE | 2017-06-03 15:06 | EKG ---
FACILITY: [facility] - [place] PATIENT NAME: FLORENCIO CRUZ : [id number] MR: [id number] V: [id number] EXAM DATE: ORDERING PHYSICIAN: NATHALY CUELLAR TECHNOLOGIST: GRAZYNA Erickson Reason : RESP Blood Pressure : / mmHG Vent. Rate : 076 BPM Atrial Rate : 076 BPM P-R Int : 140 ms QRS Dur : 080 ms QT Int : 386 ms P-R-T Axes : 059 056 061 degrees QTc Int : 434 ms Sinus rhythm Nonspecific ST findings When compared with ECG of 01-MAR-2017 18:35, No significant change was found Confirmed by ARIELLE MCCOY ([id number]) on 06/03/2017 7:39:15 PM Referred By: ALISA Confirmed By:ARIELLE MCCOY
[2017-06-08] MEDS ORDERED: BUDE10.2 INH (15:28)
== END 2017-06-03 15:10 | disposition home or self-care (01) ==
LOC: ER 13:36
DX: R42 Dizziness and giddiness (principal)
CPT/HCPCS: 71046; 82040; 82247; 82310; 82374; 82435; 82565; 82947; 83880; 84075; 84132; 84155; 84295; 84450; 84460; 84484; 84520; 85025; 85379; 93005; 99284

== ENCOUNTER 2017-06-20 16:42 | Emergency (ER) | payer MEDICARE, BC ==
[2015-06-25 12:47] VITALS: Wt 120.2 kg
[2017-06-20] MEDS ORDERED: CHOL10005 PO (16:57)
[2017-06-20] MEDS ORDERED: OMEG10007 PO (16:58)
[2017-06-20] MEDS ORDERED: MELA1TAB38 PO (16:59)
[2017-06-20] MEDS ORDERED: ALBUTEROL/IPRATROPIUM 3 ML NEB NEB ONE (17:00)
--- NOTE | 2017-06-20 17:18 | ER Report ---
History and Physical Time Seen By MD: 14:45 Hx. of Stated Complaint: PT REPORTS WITH SOB, AND TIREDNESS. COUGH TO CLEAR SPUTUM. HPI/ROS CHIEF COMPLAINT: Cough, shortness breath HISTORY OF PRESENT ILLNESS: Pt is a 51-year-old female who presents the ED with complaint of cough and shortness of breath for the past 5 days. She states that she does see a geological science teacher for severe COPD he states that she made an appointment with them for this recent cough but the roads were closed yesterday and she was unable to make it to her appointment. She states that she has been having some worsening shortness of breath and has felt the need to use her oxygen throughout the day. She states that she normally only uses a BiPAP with oxygen at night. She has not noted any fever. Denies any previous heart issues. Does not note any contacts. REVIEW OF SYSTEMS: Constitutional: No fever, no chills. Eyes: No discharge. ENT: No sore throat. Cardiovascular: No chest pain, no palpitations. Respiratory: See history of present illness. Gastrointestinal: No abdominal pain, no vomiting. Genitourinary: No hematuria. Musculoskeletal: No back pain. Skin: No rashes. Neurological: No headache. Allergies: Coded Allergies: aripiprazole (Verified Allergy, Intermediate, RASH, 06/20/17) lithium (Verified Allergy, Intermediate, RASH, 06/20/17) lurasidone (Verified Allergy, Intermediate, 06/20/17) quetiapine (Verified Allergy, Intermediate, DIZZY, 06/20/17) DIzzy varenicline (Verified Allergy, Intermediate, SWELLING, 06/20/17) ciprofloxacin (Verified Allergy, Mild, N/V, 06/20/17) sulfamethoxazole (Verified Allergy, Mild, HIVES, 06/20/17) topiramate (Verified Allergy, Mild, UPSET STOMACH, 06/20/17) Upset stomach trimethoprim (Verified Allergy, Mild, HIVES, 06/20/17) haloperidol (Verified Adverse Reaction, Severe, DYSTONIC REACTION, 06/20/17 ) propofol (Verified Adverse Reaction, Severe, HALLUCINATIONS, 06/20/17) PT STATES "I HEARD VOICES TELLING ME TO KILL MYSELF THE NIGHT AFTER I HAD A COLONOSCOPY" amoxicillin (Verified Adverse Reaction, Intermediate, Pruritus , 06/20/17) adhesive tape (Verified Adverse Reaction, Mild, RASH, 06/20/17) fluticasone (Verified Adverse Reaction, Mild, THRUSH, 06/20/17) salmeterol (Verified Adverse Reaction, Mild, THRUSH, 06/20/17) Home Meds Active Scripts Metoprolol Succinate (METOPROLOL SUCCINATE) 50 Mg Tab.er.24h, 1 TAB PO QDAY, # 30 TAB Prov:SKINNY EMMANUEL MD 06/10/17 Budesonide/Formoterol Fumarate (SYMBICORT 160-4.5 MCG INHALER) 10.2 Gm Inh, 2 PUFF INH BID, #1 INH 11 Refills Prov:SKINNY EMMANUEL MD 06/08/17 Pramipexole Di-Hcl (MIRAPEX) 0.5 Mg Tablet, 0.5 MG PO QHS, #30 TAB 11 Refills Prov:SKINNY EMMANUEL MD 05/14/17 Tiotropium [place] (SPIRIVA) 18 Mcg/Cap Inh, 2 PUFF INH DAILY, #1 INH 11 Refills Prov:SKINNY EMMANUEL MD 05/14/17 Ipratropium/Albuterol Sulfate (IPRAT-ALBUT 0.5-3(2.5) MG/3 ML) 3 Ml Ampul.neb, 3 ML IH Q4H Y for PRN, #100 UNITS 0 Refills Prov:SKINNY EMMANUEL MD 04/23/17 Famotidine (FAMOTIDINE) 40 Mg Tablet, 40 MG PO QDAY, #30 TAB Prov:SKINNY EMMANUEL MD 04/15/17 Nystatin (NYSTOP) 60 Gm Powder, 1 DONALD TP BID, #1 BOTTLE 0 Refills APPLY TO AFFECTED AREA TWICE A DAY Prov:SKINNY EMMANUEL MD 03/13/17 Reported Medications Melatonin (Melatonin) 1 Mg Tablet.er, 3 TAB PO QDAY 06/20/17 Rogers-3/Dha/Epa/Fish Oil (Fish Oil 1,000 mg Softgel) 1,000 Mg (120 Mg-180 Mg) Capsule, 1 CAPSULE PO QDAY 06/20/17 Cholecalciferol (Vitamin D3) (VITAMIN D3) 1,000 Unit Tablet, 1000 UNIT PO QDAY, TAB 06/20/17 Divalproex Sodium (DEPAKOTE) Unknown Strength Tab, PO BID, TAB 05/13/17 Escitalopram Oxalate (LEXAPRO) Unknown Strength Tablet, PO QDAY, TAB 05/13/17 Ibuprofen (IBUPROFEN) 200 Mg Tablet, 2 TAB PO Q8H Y for PAIN, TAB (MOTRIN): TAKE 400 MG EVERY 8 HRS NEEDED FOR PAIN. 02/03/17 Hydroxyzine Pamoate (HYDROXYZINE PAMOATE) 25 Mg Capsule, 25 TAB PO Q8H Y for ANXIETY/INSOMNIA 01/27/17 Duloxetine Hcl (CYMBALTA) 60 Mg Capsule.dr, 90 MG PO QDAY, #5 CAP 60mg in AM, 30mg at HS 01/27/17 Albuterol Sulfate 90 Mcg/Act (PROAIR HFA 90 MCG/ACT) 8.5 Gm Hfa.aer.ad, 1-2 PUFF IH Q4-6H Y for DYSPNEA, INHALER 01/27/17 Multivitamin (MULTIVITAMINS) 1 Each Capsule, 1 EACH PO DAILY, CAPSULE 12/08/16 Reviewed Nurses Notes: Yes Old Medical Records Reviewed: Yes Hx Smoking: Yes Smoking Status: Current: Some Days Smoker Exposure to Second Hand Smoke?: No Hx Substance Use Disorder: Yes Hx Alcohol Use: No Constitutional Vital Sign - Last 24 Hours 06/20/17 06/20/17 06/20/17 06/20/17 16:47 16:52 16:57 17:00 Temp 98.3 Pulse 72 69 Resp 16 B/P (MAP) 149/81 (103) 149/81 132/63 (86) Pulse Ox 97 97 O2 Delivery Room Air 06/20/17 06/20/17 06/20/17 06/20/17 17:08 17:08 17:12 17:16 Pulse 64 66 62 Resp 16 16 Pulse Ox 96 99 O2 Delivery Nasal Cannula O2 Flow Rate 2.0 06/20/17 06/20/17 06/20/17 06/20/17 17:17 17:30 17:47 18:00 Pulse 66 B/P (MAP) 103/63 (76) 129/66 (87) Pulse Ox 99 96 06/20/17 06/20/17 06/20/17 06/20/17 18:02 18:17 18:30 18:32 Pulse 65 63 61 B/P (MAP) 115/61 (79) Pulse Ox 95 93 94 Physical Exam General Appearance: The patient is alert, has no immediate need for airway protection and no signs of toxicity. Pt appears to be no acute distress. Eyes: Pupils equal and round no pallor or injection. ENT, Mouth: Mucous membranes are moist. Respiratory: There are no retractions. Bilateral wheezing is present. Cardiovascular: Regular rate and rhythm. Gastrointestinal: Abdomen is soft and non tender, no masses, bowel sounds normal. Skin: Warm and dry, no rashes. Musculoskeletal: Neck is supple non tender. Extremities are nontender, nonswollen and have full range of motion. DIFFERENTIAL DIAGNOSIS: After history and physical exam differential diagnosis was considered for shortness of breath including but not limited to pulmonary infectious process, COPD, asthma, pulmonary embolus and congestive heart failure. Medical Decision Making Data Points Result Diagram: 06/20/17 1725 06/20/17 1725 Laboratory Hematology Test 06/20/17 17:25 Red Blood Count 4.58 M/uL (4.17-5.56) Mean Corpuscular Volume 91.4 fL (80.0-96.0) Mean Corpuscular Hemoglobin 31.7 pg (26.0-33.0) Mean Corpuscular Hemoglobin Concent 34.6 g/dL (32.0-36.0) Red Cell Distribution Width 13.4 % (11.5-14.5) Mean Platelet Volume 9.6 fL (7.2-11.1) Neutrophils (%) (Auto) 63.5 % (39.4-72.5) Lymphocytes (%) (Auto) 26.9 % (17.6-49.6) Monocytes (%) (Auto) 7.7 % (4.1-12.4) Eosinophils (%) (Auto) 1.0 % (0.4-6.7) Basophils (%) (Auto) 0.9 % (0.3-1.4) Nucleated RBC Relative Count (auto) 0.0 /100WBC Neutrophils # (Auto) 4.5 K/uL (2.0-7.4) Lymphocytes # (Auto) 1.9 K/uL (1.3-3.6) Monocytes # (Auto) 0.5 K/uL (0.3-1.0) Eosinophils # (Auto) 0.1 K/uL (0.0-0.5) Basophils # (Auto) 0.1 K/uL (0.0-0.1) Nucleated RBC Absolute Count (auto) 0.00 K/uL Sodium Level 137 mmol/L (137-145) Potassium Level 4.2 mmol/L (3.5-5.0) Chloride Level 101 mmol/L (98-107) Carbon Dioxide Level 27 mmol/L (22-31) Blood Urea Nitrogen 17 mg/dl (7-18) Creatinine 1.00 mg/dl (0.52-1.04) Glomerular Filtration Rate Calc 58.0 Random Glucose 99 mg/dl (75-110) Calcium Level 8.7 mg/dl (8.4-10.2) Total Bilirubin 0.2 mg/dl (0.2-1.3) Aspartate Amino Transf (AST/SGOT) 14 U/L (0-35) Alanine Aminotransferase (ALT/SGPT) 22 U/L (0-56) Alkaline Phosphatase 67 U/L (0-126) Troponin I < 0.012 ng/ml B-Type Natriuretic Peptide 13 pg/ml (0-100) Total Protein 6.6 gm/dl (6.3-8.2) Albumin 3.7 g/dl (3.5-5.0) Chemistry Test 06/20/17 17:25 White Blood Count 7.1 k/uL (4.5-11.0) Red Blood Count 4.58 M/uL (4.17-5.56) Hemoglobin 14.5 g/dL (12.0-16.0) Hematocrit 41.9 % (34.0-47.0) Mean Corpuscular Volume 91.4 fL (80.0-96.0) Mean Corpuscular Hemoglobin 31.7 pg (26.0-33.0) Mean Corpuscular Hemoglobin Concent 34.6 g/dL (32.0-36.0) Red Cell Distribution Width 13.4 % (11.5-14.5) Platelet Count 179 K/uL (150-450) Mean Platelet Volume 9.6 fL (7.2-11.1) Neutrophils (%) (Auto) 63.5 % (39.4-72.5) Lymphocytes (%) (Auto) 26.9 % (17.6-49.6) Monocytes (%) (Auto) 7.7 % (4.1-12.4) Eosinophils (%) (Auto) 1.0 % (0.4-6.7) Basophils (%) (Auto) 0.9 % (0.3-1.4) Nucleated RBC Relative Count (auto) 0.0 /100WBC Neutrophils # (Auto) 4.5 K/uL (2.0-7.4) Lymphocytes # (Auto) 1.9 K/uL (1.3-3.6) Monocytes # (Auto) 0.5 K/uL (0.3-1.0) Eosinophils # (Auto) 0.1 K/uL (0.0-0.5) Basophils # (Auto) 0.1 K/uL (0.0-0.1) Nucleated RBC Absolute Count (auto) 0.00 K/uL Glomerular Filtration Rate Calc 58.0 Calcium Level 8.7 mg/dl (8.4-10.2) Total Bilirubin 0.2 mg/dl (0.2-1.3) Aspartate Amino Transf (AST/SGOT) 14 U/L (0-35) Alanine Aminotransferase (ALT/SGPT) 22 U/L (0-56) Alkaline Phosphatase 67 U/L (0-126) Troponin I < 0.012 ng/ml B-Type Natriuretic Peptide 13 pg/ml (0-100) Total Protein 6.6 gm/dl (6.3-8.2) Albumin 3.7 g/dl (3.5-5.0) EKG/Imaging Imaging CXR: IMPRESSION: 1. No acute cardiopulmonary process. Report Dictated By: Gilberto Sanford at 06/20/2017 6:29 PM Report E-Signed By: Gilberto Sanford at 06/20/2017 6:31 PM ED Course/Re-evaluation ED Course Will obtain labs and chest x-ray. 06/20/2017 6:49:26 pm - discussed all labs and chest x-ray with patient. She has all normal labs and no significant findings on her chest x-ray. She likely has a COPD exacerbation. Patient was given a DuoNeb and 125 mg IV Solu-Medrol with good relief. She does have DuoNeb's at home and also has oxygen therapy at home. Advised to continue this. Will place her on some Zithromax and prednisone as well. Decision to Disposition Date: Jun 20, 2017 Decision to Disposition Time: 18:50 Depart Departure Latest Vital Signs Vital Signs Date Time Temp Pulse Resp B/P (MAP) Pulse Ox O2 Delivery O2 Flow Rate FiO2 06/20/17 18:32 61 94 06/20/17 18:30 115/61 (79) 06/20/17 17:16 16 06/20/17 17:08 Nasal Cannula 2.0 06/20/17 16:52 98.3 Core Temperature (Celsius): 37.23 Impression: Primary Impression: COPD exacerbation Condition: Improved Disposition: HOME OR SELF-CARE Referrals: SKINNY EMMANUEL MD (PCP) New Scripts Azithromycin 250 Mg Tab (AZITHROMYCIN 250 MG TAB) 250 Mg Tablet 1 TAB PO QDAY, #6 TAB Take 2 tabs today and then 1 tab a day until gone. Prov: MARISOL MOJICA PA-C 06/20/17 Prednisone (PREDNISONE) 20 Mg Tablet 20 MG PO BID, #10 TAB Prov: MARISOL MOJICA PA-C 06/20/17 Patient Instructions: COPD (Chronic Obstructive Pulmonary Disease) (ED) Additional Instructions: Stay well-hydrated. Follow-up with primary care provider in 2-3 days. If having any worsening or concerning symptoms may return to the emergency department. MARISOL MOJICA PA-C Jun 20, 2017 17:18
[2017-06-20 17:37] LABS: PLATELET COUNT, AUTOMATED 179 K/uL (150-450)
[2017-06-20] MEDS ORDERED: methylPREDNIS SUCC 125 MG/2ML IVP ONE (18:20)
--- NOTE | 2017-06-20 18:34 | RADIOLOGY IMAGING REPORT ---
FACILITY: [facility] PATIENT NAME: Natividad Loaiza : 1965 MR: [id number] V: [id number] EXAM DATE: ORDERING PHYSICIAN: MARISOL MOJICA TECHNOLOGIST: Location: [facility] [place] Patient: Natividad Loaiza : 1965 Visit/Account:[id number] Date of Sevice: 06/20/2017 2 VIEWS CHEST INDICATION: Shortness of breath and chest pain. COMPARISON: 05/26/2017. FINDINGS: Cardiomediastinal silhouette and pulmonary vessels within normal limits. There is no focal infiltrate or lobar consolidation. There is no pneumothorax or pleural effusion. No nodule. Upper abdomen is unremarkable. No acute bony abnormality. IMPRESSION: 1. No acute cardiopulmonary process. Report Dictated By: Gilberto Sanford at 06/20/2017 6:29 PM Report E-Signed By: Gilberto Sanford at 06/20/2017 6:31 PM WSN:[id number]
[2017-06-20] MEDS ORDERED: AZIT-18 PO (18:53)
[2017-06-20] MEDS ORDERED: PRED20TA6 PO (18:53)
[2017-06-20 19:30] VITALS: BP 114/67
== END 2017-06-20 19:36 | disposition home or self-care (01) ==
LOC: ER 17:04
DX: J44.1 Chronic obstructive pulmonary disease with (acute) exacerbation (principal)
CPT/HCPCS: 71046; 83880; 84484; 85025; 94640; 96374; 99284; J2930; J7620; 82040; 82247; 82310; 82374; 82435; 82565; 82947; 84075; 84132; 84155; 84295; 84450; 84460; 84520

== ENCOUNTER → 2017-06-25 | Outpatient (CLI) | payer MEDICARE, BC ==
[2015-06-25 12:47] VITALS: BMI 43.0
[~2017-06-25] MED LIST changes: +CHOL10005 PO; +IOPAMIDOL 76% 75 ML INFUS BTL 75 ML ONE; +MELA1TAB38 PO; +OMEG10007 PO
--- NOTE | 2017-06-25 10:58 | RADIOLOGY IMAGING REPORT ---
FACILITY: [facility] - [place] PATIENT NAME: Natividad Loaiza : 1965 MR: [id number] V: [id number] EXAM DATE: ORDERING PHYSICIAN: FRANKI SAUCEDA TECHNOLOGIST: Location: [facility] [place] Patient: Natividad Loaiza : 1965 Visit/Account:[id number] Date of Sevice: 06/25/2017 CTA CHEST with contrast (PULM ANG) EXAMINATION: CTA of the chest with IV contrast History : COPD, shortness of breath TECHNIQUE: Pulmonary embolus protocol - Thin-slice axial imaging of the chest was performed during maximal pulmonary arterial opacification with intravenous nonionic iodinated contrast. 3D coronal sla b MIPs and 2D reconstructions in the coronal and sagittal planes were performed to aid in pulmonary e mbolus detection. Chair Lift Operator images have been stored on PACS. One of the following dose optimization techniques was utilized in the performance of this exam: Autom ated exposure control; adjustment of the mA and/or kV according to the patient's size; or use of an i terative reconstruction technique. Specific details can be referenced in the facility's radiology C T exam operational policy. Contrast: 75 cc of Isovue-[id number] COMPARISON STUDIES: none. FINDINGS: Please note that this exam is optimized for assessment of the pulmonary arteries and is not intended as a diagnostic study of the thoracic aorta, coronary arteries or venous structures. Angiographic Findings: Pulmonary arteries: There are no filling defects in the main, right, left, lobar, segmental or visual ized sub-segmental branches of the pulmonary arterial system Other vasculature: Mild atherosclerotic change of the thoracic aorta is noted.. Additional non-angiographic findings: Lungs / Pleura: No significant underlying pulmonary pathology. Airways appear to be patent.. Mediastinum / Tri: negative. Heart / Pericardium: negative. Lymph node assessment: negative Musculoskeletal / Body wall: Degenerative changes are noted. Upper abdomen: The gallbladder is absent. IMPRESSION: 1. Unremarkable CTA of the chest. No evidence for pulmonary emboli to the subsegmental level. No a cute pathology identified. Report Dictated By: Gilberto Post MD at 06/25/2017 10:45 AM Report E-Signed By: Gilberto Post MD at 06/25/2017 10:52 AM WSN:[id number]
== END ==
LOC: CT 09:33
PROVIDERS: ATTEND Internal Medicine
DX: I25.10 Atherosclerotic heart disease of native coronary artery without angina pectoris (principal); M19.90 Unspecified osteoarthritis, unspecified site; Z90.49 Acquired absence of other specified parts of digestive tract
CPT/HCPCS: 71275; Q9967

== ENCOUNTER 2017-07-06 19:34 | Observation (INO) | payer MEDICARE, BC ==
[2015-06-25 12:47] VITALS: Ht 154.9 cm; Wt 120.2 kg
[~2017-07-06] VITALS: Ht 154.9 cm; Wt 120.2 kg
[~2017-07-06 19:34] MED LIST changes: -OMEG10004 PO
[2017-07-06] MEDS ORDERED: NS(*) 0.9% 1000 ML BAG 1,000 ML IV ONE (19:36)
--- NOTE | 2017-07-06 19:36 | ER Report ---
History and Physical Time Seen By MD: 19:35 Hx. of Stated Complaint: overdose HPI/ROS took 30 of her duloxitine about 40 minutes ago had been depressed doesnt remember taking the medication per pt Allergies: Coded Allergies: aripiprazole (Verified Allergy, Intermediate, RASH, 06/20/17) lithium (Verified Allergy, Intermediate, RASH, 06/20/17) lurasidone (Verified Allergy, Intermediate, 06/20/17) quetiapine (Verified Allergy, Intermediate, DIZZY, 06/20/17) DIzzy varenicline (Verified Allergy, Intermediate, SWELLING, 06/20/17) ciprofloxacin (Verified Allergy, Mild, N/V, 06/20/17) sulfamethoxazole (Verified Allergy, Mild, HIVES, 06/20/17) topiramate (Verified Allergy, Mild, UPSET STOMACH, 06/20/17) Upset stomach trimethoprim (Verified Allergy, Mild, HIVES, 06/20/17) haloperidol (Verified Adverse Reaction, Severe, DYSTONIC REACTION, 06/20/17 ) propofol (Verified Adverse Reaction, Severe, HALLUCINATIONS, 06/20/17) PT STATES "I HEARD VOICES TELLING ME TO KILL MYSELF THE NIGHT AFTER I HAD A COLONOSCOPY" amoxicillin (Verified Adverse Reaction, Intermediate, Pruritus , 06/20/17) adhesive tape (Verified Adverse Reaction, Mild, RASH, 06/20/17) fluticasone (Verified Adverse Reaction, Mild, THRUSH, 06/20/17) salmeterol (Verified Adverse Reaction, Mild, THRUSH, 06/20/17) Home Meds Active Scripts Metoprolol Succinate (METOPROLOL SUCCINATE) 50 Mg Tab.er.24h, 1 TAB PO QDAY, # 30 TAB Prov:SKINNY EMMANUEL MD 06/10/17 Budesonide/Formoterol Fumarate (SYMBICORT 160-4.5 MCG INHALER) 10.2 Gm Inh, 2 PUFF INH BID, #1 INH 11 Refills Prov:SKINNY EMMANUEL MD 06/08/17 Pramipexole Di-Hcl (MIRAPEX) 0.5 Mg Tablet, 0.5 MG PO QHS, #30 TAB 11 Refills Prov:SKINNY EMMANUEL MD 05/14/17 Tiotropium [place] (SPIRIVA) 18 Mcg/Cap Inh, 2 PUFF INH DAILY, #1 INH 11 Refills Prov:SKINNY EMMANUEL MD 05/14/17 Ipratropium/Albuterol Sulfate (IPRAT-ALBUT 0.5-3(2.5) MG/3 ML) 3 Ml Ampul.neb, 3 ML IH Q4H Y for PRN, #100 UNITS 0 Refills Prov:SKINNY EMMANUEL MD 04/23/17 Famotidine (FAMOTIDINE) 40 Mg Tablet, 40 MG PO QDAY, #30 TAB Prov:SKINNY EMMANUEL MD 04/15/17 Nystatin (NYSTOP) 60 Gm Powder, 1 DONALD TP BID, #1 BOTTLE 0 Refills APPLY TO AFFECTED AREA TWICE A DAY Prov:SKINNY EMMANUEL MD 03/13/17 Reported Medications Duloxetine Hcl (CYMBALTA) 30 Mg Capsule.dr, 30 MG PO BID, #5 CAP 07/06/17 Melatonin (Melatonin) 1 Mg Tablet.er, 3 TAB PO QDAY 06/20/17 [place]-3/Dha/Epa/Fish Oil (Fish Oil 1,000 mg Softgel) 1,000 Mg (120 Mg-180 Mg) Capsule, 1 CAPSULE PO QDAY 06/20/17 Cholecalciferol (Vitamin D3) (VITAMIN D3) 1,000 Unit Tablet, 1000 UNIT PO QDAY, TAB 06/20/17 Divalproex Sodium (DEPAKOTE) Unknown Strength Tab, PO BID, TAB 05/13/17 Escitalopram Oxalate (LEXAPRO) Unknown Strength Tablet, PO QDAY, TAB 05/13/17 Ibuprofen (IBUPROFEN) 200 Mg Tablet, 2 TAB PO Q8H Y for PAIN, TAB (MOTRIN): TAKE 400 MG EVERY 8 HRS NEEDED FOR PAIN. 02/03/17 Hydroxyzine Pamoate (HYDROXYZINE PAMOATE) 25 Mg Capsule, 25 TAB PO Q8H Y for ANXIETY/INSOMNIA 01/27/17 Albuterol Sulfate 90 Mcg/Act (PROAIR HFA 90 MCG/ACT) 8.5 Gm Hfa.aer.ad, 1-2 PUFF IH Q4-6H Y for DYSPNEA, INHALER 01/27/17 Multivitamin (MULTIVITAMINS) 1 Each Capsule, 1 EACH PO DAILY, CAPSULE 12/08/16 Discontinued Reported Medications Duloxetine Hcl (CYMBALTA) 60 Mg Capsule.dr, 90 MG PO QDAY, #5 CAP 60mg in AM, 30mg at HS 01/27/17 Discontinued Scripts Azithromycin 250 Mg Tab (AZITHROMYCIN 250 MG TAB) 250 Mg Tablet, 1 TAB PO QDAY, #6 TAB Take 2 tabs today and then 1 tab a day until gone. Prov:JHON MOJICALeana Olvera PA-C 06/20/17 Prednisone (PREDNISONE) 20 Mg Tablet, 20 MG PO BID, #10 TAB Prov:KWABENANILESMARISOL PA-C 06/20/17 Past Medical/Surgical History History of hypothyroidism, hypertension, COPD, BiPAP dependent, home oxygen at 3 L, GERD, breast cancer in the past, Reviewed Nurses Notes: Yes Old Medical Records Reviewed: Yes Hx Smoking: Yes Smoking Status: Current: Some Days Smoker Exposure to Second Hand Smoke?: No Hx Substance Use Disorder: Yes Hx Alcohol Use: No Family History of: Other Constitutional Vital Sign - Last 24 Hours 07/06/17 07/06/17 07/06/17 07/06/17 19:34 19:35 19:41 19:45 Pulse 72 70 Resp 16 B/P (MAP) 142/83 (102) 142/83 136/79 (98) Pulse Ox 96 96 O2 Delivery Room Air 07/06/17 07/06/17 07/06/17 07/06/17 19:49 20:00 20:04 20:15 Pulse 74 70 Resp 23 10 B/P (MAP) 127/86 (100) 125/75 (92) Pulse Ox 96 97 07/06/17 07/06/17 07/06/17 07/06/17 20:19 20:22 20:30 20:34 Pulse 74 65 Resp 15 15 B/P (MAP) 119/87 (98) 123/79 (94) Pulse Ox 97 Physical Exam CHIEF COMPLAINT: Overdose of 30 duloxetine one hour prior to arrival HISTORY OF PRESENT ILLNESS: 51-year-old female to the ER by EMS the 30 duloxetine one hour prior to arrival states he been depressed all day has had previous suicide attempts does not remember taking the medication woke up in a different room then she went to sleep with an empty bottle in her hand REVIEW OF SYSTEMS: Constitutional: No fever, no chills. Eyes: No discharge. ENT: No sore throat. Cardiovascular: No chest pain, no palpitations. Respiratory: No cough, no shortness of breath. Gastrointestinal: No abdominal pain, no vomiting. Genitourinary: No hematuria. Musculoskeletal: No back pain. Skin: No rashes. Neurological: No headache. Medical Decision Making Data Points Result Diagram: 07/06/17 0000 07/06/17 0000 Laboratory Hematology Test 07/06/17 00:00 07/06/17 20:23 Red Blood Count 4.49 M/uL (4.17-5.56) Mean Corpuscular Volume 90.6 fL (80.0-96.0) Mean Corpuscular Hemoglobin 32.0 pg (26.0-33.0) Mean Corpuscular Hemoglobin Concent 35.3 g/dL (32.0-36.0) Red Cell Distribution Width 13.4 % (11.5-14.5) Mean Platelet Volume 9.8 fL (7.2-11.1) Neutrophils (%) (Auto) 65.7 % (39.4-72.5) Lymphocytes (%) (Auto) 24.9 % (17.6-49.6) Monocytes (%) (Auto) 7.9 % (4.1-12.4) Eosinophils (%) (Auto) 1.0 % (0.4-6.7) Basophils (%) (Auto) 0.5 % (0.3-1.4) Nucleated RBC Relative Count (auto) 0.0 /100WBC Neutrophils # (Auto) 5.5 K/uL (2.0-7.4) Lymphocytes # (Auto) 2.1 K/uL (1.3-3.6) Monocytes # (Auto) 0.7 K/uL (0.3-1.0) Eosinophils # (Auto) 0.1 K/uL (0.0-0.5) Basophils # (Auto) 0.0 K/uL (0.0-0.1) Nucleated RBC Absolute Count (auto) 0.00 K/uL Sodium Level 137 mmol/L (137-145) Potassium Level 3.7 mmol/L (3.5-5.0) Chloride Level 98 mmol/L (98-107) Carbon Dioxide Level 27 mmol/L (22-31) Blood Urea Nitrogen 24 mg/dl (7-18) Creatinine 1.30 mg/dl (0.52-1.04) Glomerular Filtration Rate Calc 42.8 Random Glucose 101 mg/dl (75-110) Calcium Level 8.9 mg/dl (8.4-10.2) Magnesium Level 1.6 mg/dl (1.7-2.2) Total Bilirubin 0.3 mg/dl (0.2-1.3) Aspartate Amino Transf (AST/SGOT) 24 U/L (0-35) Alanine Aminotransferase (ALT/SGPT) 20 U/L (0-56) Alkaline Phosphatase 70 U/L (0-126) Total Protein 6.6 gm/dl (6.3-8.2) Albumin 3.7 g/dl (3.5-5.0) Salicylates Level < 10 mg/L Salicylate Last Dose Date unk Acetaminophen Level < 10 ug/ml Serum Alcohol < 10 mg/dl Urine Color Straw Urine Clarity Clear Urine pH 7.0 pH (4.8-9.5) Urine Specific [place] 1.014 Urine Protein Negative mg/dL (NEGATIVE) Urine Glucose (UA) Negative mg/dL (NEGATIVE) Urine Ketones Trace mg/dL (NEGATIVE) Urine Blood Negative (NEGATIVE) Urine Nitrite Negative (NEGATIVE) Urine Bilirubin Negative (NEGATIVE) Urine Urobilinogen Negative mg/dL (0.2-1.9) Urine Leukocyte Esterase Negative (NEGATIVE) Urine RBC None /HPF (0-2/HPF) Urine WBC None /HPF (0-5/HPF) Urine Squamous Epithelial Cells Many /LPF (</=FEW) Urine Bacteria Negative /HPF (NONE-FEW) Urine Mucus None /HPF (NONE-FEW) Urine Opiates Screen Negative Urine Barbiturates Screen Negative Ur Tricyclic Antidepressants Screen Negative Urine Phencyclidine Screen Negative Urine Amphetamines Screen Negative Urine Benzodiazepines Screen Negative Urine Cocaine Screen Negative Urine Cannabinoids Screen Negative Chemistry Test 07/06/17 00:00 07/06/17 20:23 White Blood Count 8.4 k/uL (4.5-11.0) Red Blood Count 4.49 M/uL (4.17-5.56) Hemoglobin 14.3 g/dL (12.0-16.0) Hematocrit 40.6 % (34.0-47.0) Mean Corpuscular Volume 90.6 fL (80.0-96.0) Mean Corpuscular Hemoglobin 32.0 pg (26.0-33.0) Mean Corpuscular Hemoglobin Concent 35.3 g/dL (32.0-36.0) Red Cell Distribution Width 13.4 % (11.5-14.5) Platelet Count 174 K/uL (150-450) Mean Platelet Volume 9.8 fL (7.2-11.1) Neutrophils (%) (Auto) 65.7 % (39.4-72.5) Lymphocytes (%) (Auto) 24.9 % (17.6-49.6) Monocytes (%) (Auto) 7.9 % (4.1-12.4) Eosinophils (%) (Auto) 1.0 % (0.4-6.7) Basophils (%) (Auto) 0.5 % (0.3-1.4) Nucleated RBC Relative Count (auto) 0.0 /100WBC Neutrophils # (Auto) 5.5 K/uL (2.0-7.4) Lymphocytes # (Auto) 2.1 K/uL (1.3-3.6) Monocytes # (Auto) 0.7 K/uL (0.3-1.0) Eosinophils # (Auto) 0.1 K/uL (0.0-0.5) Basophils # (Auto) 0.0 K/uL (0.0-0.1) Nucleated RBC Absolute Count (auto) 0.00 K/uL Glomerular Filtration Rate Calc 42.8 Calcium Level 8.9 mg/dl (8.4-10.2) Magnesium Level 1.6 mg/dl (1.7-2.2) Total Bilirubin 0.3 mg/dl (0.2-1.3) Aspartate Amino Transf (AST/SGOT) 24 U/L (0-35) Alanine Aminotransferase (ALT/SGPT) 20 U/L (0-56) Alkaline Phosphatase 70 U/L (0-126) Total Protein 6.6 gm/dl (6.3-8.2) Albumin 3.7 g/dl (3.5-5.0) Salicylates Level < 10 mg/L Salicylate Last Dose Date unk Acetaminophen Level < 10 ug/ml Serum Alcohol < 10 mg/dl Urine Color Straw Urine Clarity Clear Urine pH 7.0 pH (4.8-9.5) Urine Specific [place] 1.014 Urine Protein Negative mg/dL (NEGATIVE) Urine Glucose (UA) Negative mg/dL (NEGATIVE) Urine Ketones Trace mg/dL (NEGATIVE) Urine Blood Negative (NEGATIVE) Urine Nitrite Negative (NEGATIVE) Urine Bilirubin Negative (NEGATIVE) Urine Urobilinogen Negative mg/dL (0.2-1.9) Urine Leukocyte Esterase Negative (NEGATIVE) Urine RBC None /HPF (0-2/HPF) Urine WBC None /HPF (0-5/HPF) Urine Squamous Epithelial Cells Many /LPF (</=FEW) Urine Bacteria Negative /HPF (NONE-FEW) Urine Mucus None /HPF (NONE-FEW) Urine Opiates Screen Negative Urine Barbiturates Screen Negative Ur Tricyclic Antidepressants Screen Negative Urine Phencyclidine Screen Negative Urine Amphetamines Screen Negative Urine Benzodiazepines Screen Negative Urine Cocaine Screen Negative Urine Cannabinoids Screen Negative Toxicology Test 07/06/17 00:00 07/06/17 20:23 Salicylates Level < 10 mg/L Salicylate Last Dose Date unk Acetaminophen Level < 10 ug/ml Serum Alcohol < 10 mg/dl Urine Opiates Screen Negative Urine Barbiturates Screen Negative Ur Tricyclic Antidepressants Screen Negative Urine Phencyclidine Screen Negative Urine Amphetamines Screen Negative Urine Benzodiazepines Screen Negative Urine Cocaine Screen Negative Urine Cannabinoids Screen Negative Urinalysis Test 07/06/17 20:23 Urine Color Straw Urine Clarity Clear Urine pH 7.0 pH (4.8-9.5) Urine Specific [place] 1.014 Urine Protein Negative mg/dL (NEGATIVE) Urine Glucose (UA) Negative mg/dL (NEGATIVE) Urine Ketones Trace mg/dL (NEGATIVE) Urine Blood Negative (NEGATIVE) Urine Nitrite Negative (NEGATIVE) Urine Bilirubin Negative (NEGATIVE) Urine Urobilinogen Negative mg/dL (0.2-1.9) Urine Leukocyte Esterase Negative (NEGATIVE) Urine RBC None /HPF (0-2/HPF) Urine WBC None /HPF (0-5/HPF) Urine Squamous Epithelial Cells Many /LPF (</=FEW) Urine Bacteria Negative /HPF (NONE-FEW) Urine Mucus None /HPF (NONE-FEW) EKG/Imaging EKG Interpretation EKG at 1941 normal sinus rhythm ventricular rate 71 QTc is 430 Monitor Interpretation: Normal Sinus Rhythm ED Course/Re-evaluation Clinical Indication for ER IV: Hydration ED Course Poison control was contacted they suggested symptomatic treatment should be monitored for tachycardia and respiratory depression for 12 hours after ingestion Re-evaluation Discussed patient with Dr. Moss he understands she will be admitted medically and will follow her tomorrow. Discussed with Dr. Roche he will admit med telemetry with diagnosis of overdose Decision to Disposition Date: Jul 06, 2017 Decision to Disposition Time: 21:02 Depart Departure Latest Vital Signs Vital Signs Date Time Temp Pulse Resp B/P (MAP) Pulse Ox O2 Delivery O2 Flow Rate FiO2 07/06/17 20:34 65 15 97 07/06/17 20:30 123/79 (94) 07/06/17 19:41 Room Air Core Temperature (Celsius): 37.23 Impression: Primary Impression: Suicide attempt Additional Impression: Overdose Condition: Improved Disposition: Admitted from ER Referrals: SKINNY EMMANUEL MD (PCP) Problem Qualifiers MARK PAUL APRN-C Jul 06, 2017 19:36
--- NOTE | 2017-07-06 20:06 | EKG ---
FACILITY: [facility] [place] PATIENT NAME: FLORENCIO CRUZ : [id number] MR: [id number] V: [id number] EXAM DATE: ORDERING PHYSICIAN: MARK PAUL TECHNOLOGIST: ANITA Test Reason : CARDIAC Blood Pressure : / mmHG Vent. Rate : 071 BPM Atrial Rate : 071 BPM P-R Int : 150 ms QRS Dur : 076 ms QT Int : 396 ms P-R-T Axes : 080 073 081 degrees QTc Int : 430 ms Normal sinus rhythm Normal ECG When compared with ECG of 03-JUN-2017 13:48, Previous ECG has undetermined rhythm, needs review Nonspecific T wave abnormality now evident in Lateral leads Confirmed by STEFANI HERNANDEZ ([id number]) on 07/07/2017 7:08:47 AM Referred By: Confirmed By:STEFANI HERNANDEZ
[2017-07-06 20:07] LABS: PLATELET COUNT, AUTOMATED 174 K/uL (150-450)
[2017-07-06] MEDS ORDERED: DULO30CA35 PO (20:28)
[2017-07-06] MEDS ORDERED: MAGNESIUM SUL/D5W* 1 GM/100 ML 100 ML IVPB ONE (20:30)
[2017-07-06 22:32] VITALS: BP 135/76
[2017-07-06] MEDS ORDERED: NS(*) 0.9% 1000 ML BAG 1,000 ML IV PRN (22:47)
[2017-07-06] MEDS ORDERED: ALBUTEROL SULFATE 90 MCG/ACT 8.5 GM HNH INH PRN (22:50)
[2017-07-06] MEDS ORDERED: hydrOXYzine 25 MG TAB TH 2 TAB/BOTTLE PO PRN (22:50)
--- NOTE | 2017-07-06 22:56 | History & Physical ---
History of Present Illness Chief Complaint Overdose History of Present Illness This patient presented to the emergency room after taking #30 of her duloxetine tablets in an apparent suicide attempt. She has remained lucid in the emergency department and arrives to the medical floor with no acute complaints. History Problems: (1) COPD (chronic obstructive pulmonary disease) Status: Chronic (2) Obstructive sleep apnea Status: Chronic (3) Persistent depressive disorder Status: Chronic (4) Hypertension Status: Chronic (5) Morbid obesity Status: Chronic (6) Hypothyroidism Status: Chronic (7) History of hand surgery Status: Resolved (8) S/P cholecystectomy Status: Acute Home Meds Active Scripts Metoprolol Succinate (METOPROLOL SUCCINATE) 50 Mg Tab.er.24h, 1 TAB PO QDAY, # 30 TAB Prov:SKINNY EMMANUEL MD 06/10/17 Budesonide/Formoterol Fumarate (SYMBICORT 160-4.5 MCG INHALER) 10.2 Gm Inh, 2 PUFF INH BID, #1 INH 11 Refills Prov:SKINNY EMMANUEL MD 06/08/17 Pramipexole Di-Hcl (MIRAPEX) 0.5 Mg Tablet, 0.5 MG PO QHS, #30 TAB 11 Refills Prov:SKINNY EMMANUEL MD 05/14/17 Tiotropium [place] (SPIRIVA) 18 Mcg/Cap Inh, 2 PUFF INH DAILY, #1 INH 11 Refills Prov:SKINNY EMMANUEL MD 05/14/17 Ipratropium/Albuterol Sulfate (IPRAT-ALBUT 0.5-3(2.5) MG/3 ML) 3 Ml Ampul.neb, 3 ML IH Q4H Y for PRN, #100 UNITS 0 Refills Prov:SKINNY EMMANUEL MD 04/23/17 Famotidine (FAMOTIDINE) 40 Mg Tablet, 40 MG PO QDAY, #30 TAB Prov:SKINNY EMMANUEL MD 04/15/17 Nystatin (NYSTOP) 60 Gm Powder, 1 DONALD TP BID, #1 BOTTLE 0 Refills APPLY TO AFFECTED AREA TWICE A DAY Prov:SKINNY EMMANUEL MD 03/13/17 Reported Medications Duloxetine Hcl (CYMBALTA) 30 Mg Capsule.dr, 30 MG PO BID, #5 CAP 07/06/17 Melatonin (Melatonin) 1 Mg Tablet.er, 3 TAB PO QDAY 06/20/17 [place]-3/Dha/Epa/Fish Oil (Fish Oil 1,000 mg Softgel) 1,000 Mg (120 Mg-180 Mg) Capsule, 1 CAPSULE PO QDAY 06/20/17 Cholecalciferol (Vitamin D3) (VITAMIN D3) 1,000 Unit Tablet, 1000 UNIT PO QDAY, TAB 06/20/17 Divalproex Sodium (DEPAKOTE) Unknown Strength Tab, PO BID, TAB 05/13/17 Escitalopram Oxalate (LEXAPRO) Unknown Strength Tablet, PO QDAY, TAB 05/13/17 Ibuprofen (IBUPROFEN) 200 Mg Tablet, 2 TAB PO Q8H Y for PAIN, TAB (MOTRIN): TAKE 400 MG EVERY 8 HRS NEEDED FOR PAIN. 02/03/17 Hydroxyzine Pamoate (HYDROXYZINE PAMOATE) 25 Mg Capsule, 25 TAB PO Q8H Y for ANXIETY/INSOMNIA 01/27/17 Albuterol Sulfate 90 Mcg/Act (PROAIR HFA 90 MCG/ACT) 8.5 Gm Hfa.aer.ad, 1-2 PUFF IH Q4-6H Y for DYSPNEA, INHALER 01/27/17 Multivitamin (MULTIVITAMINS) 1 Each Capsule, 1 EACH PO DAILY, CAPSULE 12/08/16 Discontinued Reported Medications Duloxetine Hcl (CYMBALTA) 60 Mg Capsule.dr, 90 MG PO QDAY, #5 CAP 60mg in AM, 30mg at HS 01/27/17 Discontinued Scripts Azithromycin 250 Mg Tab (AZITHROMYCIN 250 MG TAB) 250 Mg Tablet, 1 TAB PO QDAY, #6 TAB Take 2 tabs today and then 1 tab a day until gone. Prov:MARISOL MOJICA PA-C 06/20/17 Prednisone (PREDNISONE) 20 Mg Tablet, 20 MG PO BID, #10 TAB Prov:MARISOL MOJICA PA-C 06/20/17 Allergies: Coded Allergies: aripiprazole (Verified Allergy, Intermediate, RASH, 06/20/17) lithium (Verified Allergy, Intermediate, RASH, 06/20/17) lurasidone (Verified Allergy, Intermediate, 06/20/17) quetiapine (Verified Allergy, Intermediate, DIZZY, 06/20/17) DIzzy varenicline (Verified Allergy, Intermediate, SWELLING, 06/20/17) ciprofloxacin (Verified Allergy, Mild, N/V, 06/20/17) sulfamethoxazole (Verified Allergy, Mild, HIVES, 06/20/17) topiramate (Verified Allergy, Mild, UPSET STOMACH, 06/20/17) Upset stomach trimethoprim (Verified Allergy, Mild, HIVES, 06/20/17) haloperidol (Verified Adverse Reaction, Severe, DYSTONIC REACTION, 06/20/17 ) propofol (Verified Adverse Reaction, Severe, HALLUCINATIONS, 06/20/17) PT STATES "I HEARD VOICES TELLING ME TO KILL MYSELF THE NIGHT AFTER I HAD A COLONOSCOPY" amoxicillin (Verified Adverse Reaction, Intermediate, Pruritus , 06/20/17) adhesive tape (Verified Adverse Reaction, Mild, RASH, 06/20/17) fluticasone (Verified Adverse Reaction, Mild, THRUSH, 06/20/17) salmeterol (Verified Adverse Reaction, Mild, THRUSH, 06/20/17) Patient History: Breast cancer FH: alcohol abuse FATHER, , Age:82 MOTHER, , Age:66 FH: atrial fibrillation FATHER, , Age:82 FH: breast cancer MGM, Onset:80 PA PGM FH: hypertension FATHER, , Age:82 MOTHER, , Age:66 BROTHER OR SISTER FH: kidney failure FATHER, , Age:82 FH: leukemia BROTHER OR SISTER Hx Smoking: Yes Smoking Status: Current: Some Days Smoker Exposure to Second Hand Smoke?: No Caffeine Intake: Coffee, Soda Caffeine/Cups Per Day: 5-6 Hx Alcohol Use: No Hx Substance Use Disorder: Yes Social Drug Use: Occasional Social Drugs: Prescription Drugs Amount Of Social Drug/s Used: TOOK 30 TABLETS OF DULOXETINE HEAD SAMPLER Review of Systems All Systems Reviewed/Normal: Yes Exam Vital Signs Vital Signs Date Time Temp Pulse Resp B/P (MAP) Pulse Ox O2 Delivery O2 Flow Rate FiO2 07/06/17 22:32 98.7 73 20 135/76 (95) 97 Nasal Cannula 2.0 Neuro: No Gross deficits Eyes: PERRLA Cardiovascular: Regular Rate and Rhythm Respiratory: Clear to Auscultation GI: Abd Soft and Non-Tender Extremities: No Edema Integumentary: No Cyanosis Medical Decision Making Data Points Result Diagram: 07/06/17 0000 07/06/17 0000 Assessment and Plan Problems: (1) Overdose Status: Acute Assessment & Plan: She did present with an overdose of approximately #30 of her duloxetine tablets. She will be observed on the medical floor overnight and will transfer to psychiatry in the morning. (2) COPD (chronic obstructive pulmonary disease) Status: Chronic Assessment & Plan: She is on chronic treatment with albuterol, Duo Nebs, and Symbicort. (3) Hypertension Status: Chronic Assessment & Plan: She is on chronic treatment with metoprolol. (4) Morbid obesity Status: Chronic (5) CKD (chronic kidney disease) stage 3, GFR 30-59 ml/min Status: Chronic Venous Thromboembolism Antithrombotics Is Pt On Any Antithrombotics?: No Exam Sepsis Risk: No Definite Risk Problem Qualifiers (1) Hypertension: Hypertension type: essential hypertension Qualified Codes: I10 - Essential ( primary) hypertension STEFANI HERNANDEZ DO Jul 06, 2017 22:56
[2017-07-06] MEDS ORDERED: DIVA-6 PO (23:08)
[2017-07-06] MEDS ORDERED: ESCI10TA8 PO (23:08)
[2017-07-06] MEDS ORDERED: OMEG10004 PO (23:08)
[2017-07-07] MEDS ORDERED: ONDANSETRON 4 MG/2 ML VIAL IVP PRN (01:20)
[2017-07-07 04:01] VITALS: BP 124/72
[2017-07-07] MEDS: ALBUTEROL/IPRATROPIUM 3 ML NEB NEB SCH ×2 (05:59→10:58)
[2017-07-07 06:57] LABS: PLATELET COUNT, AUTOMATED 149 K/uL (150-450)
[2017-07-07] MEDS ORDERED: hydrOXYzine PAMOATE 25 MG CAP PO PRN (07:10)
[2017-07-07] MEDS ORDERED: ALBUTEROL SULFATE 90 MCG/ACT 8.5 GM HNH INH PRN (07:20)
[2017-07-07 08:00] VITALS: BP 111/80
[2017-07-07] MEDS ORDERED: BUDESO/FORMOT 160/4.5 MCG 6 GM INH SCH ×2 (09:00→18:00)
[2017-07-07] MEDS ORDERED: TIOTROPIUM BROM INH 18 MCG/CAP INH SCH (09:00)
[2017-07-07] MEDS ORDERED: METOPROLOL SUCC XL 50 MG TABCR 50 MG TAB.ER.24H PO SCH (09:00)
[2017-07-07] MEDS ORDERED: CHOLECALCIFEROL 1000 UNIT TAB PO SCH (09:00)
--- NOTE | 2017-07-07 09:01 | Hospitalist Depart ---
Discharge Summary Reason for Hosp/Final Diag: (1) Overdose Status: Acute Hospital Course & Plan: She did present with an overdose of approximately #30 of her duloxetine tablets. She was observed on the medical floor overnight and will transfer to psychiatry today. I spoke with Dr. Avilez who has agreed to accept this patient on the [facility] unit. (2) COPD (chronic obstructive pulmonary disease) Status: Chronic Hospital Course & Plan: She is on chronic treatment with albuterol, Duo Nebs, and Symbicort. (3) Hypertension Status: Chronic Hospital Course & Plan: She is on chronic treatment with metoprolol. (4) Morbid obesity Status: Chronic (5) CKD (chronic kidney disease) stage 3, GFR 30-59 ml/min Status: Chronic Departure Latest Vital Signs Vital Signs 07/07/17 08:00 Temp 98.5 Pulse 74 Resp 14 B/P (MAP) 111/80 (90) Pulse Ox 93 O2 Delivery Nasal Cannula O2 Flow Rate 2.0 Weight (Pounds): 265 Result Diagram: 07/07/17 0644 07/07/17 0539 Item Value Date Time Creatinine 1.00 mg/dl 07/07/17538 Magnesium Level 1.8 mg/dl 07/07/17538 Condition: Improved Discharge: [facility] Discharge Instructions Home Meds Active Scripts Metoprolol Succinate (METOPROLOL SUCCINATE) 50 Mg Tab.er.24h, 1 TAB PO QDAY, # 30 TAB Prov:SKINNY EMMANUEL MD 06/10/17 Budesonide/Formoterol Fumarate (SYMBICORT 160-4.5 MCG INHALER) 10.2 Gm Inh, 2 PUFF INH BID, #1 INH 11 Refills Prov:SKINNY EMMANUEL MD 06/08/17 Pramipexole Di-Hcl (MIRAPEX) 0.5 Mg Tablet, 0.5 MG PO QHS, #30 TAB 11 Refills Prov:SKINNY EMMANUEL MD 05/14/17 Tiotropium [place] (SPIRIVA) 18 Mcg/Cap Inh, 2 PUFF INH DAILY, #1 INH 11 Refills Prov:SKINNY EMMANUEL MD 05/14/17 Ipratropium/Albuterol Sulfate (IPRAT-ALBUT 0.5-3(2.5) MG/3 ML) 3 Ml Ampul.neb, 3 ML IH Q4H Y for PRN, #100 UNITS 0 Refills Prov:SKINNY EMMANUEL MD 04/23/17 Famotidine (FAMOTIDINE) 40 Mg Tablet, 40 MG PO QDAY, #30 TAB Prov:SKINNY EMMANUEL MD 04/15/17 Nystatin (NYSTOP) 60 Gm Powder, 1 DONALD TP BID, #1 BOTTLE 0 Refills APPLY TO AFFECTED AREA TWICE A DAY Prov:SKINNY EMMANUEL MD 03/13/17 Reported Medications [place]-3/Dha/Epa/Fish Oil (OMEGA-3 FISH OIL 1,000 MG SFGL) 1,000 Mg Capsule, 1000 MG PO BID, CAPSULE 07/06/17 Divalproex Sodium (DIVALPROEX SODIUM) 500 Mg Tablet.dr, 500 MG PO BID, TAB 07/06/17 Escitalopram Oxalate (ESCITALOPRAM OXALATE) 10 Mg Tablet, 10 MG PO QDAY, TAB 07/06/17 Duloxetine Hcl (CYMBALTA) 30 Mg Capsule.dr, 30 MG PO BID, #5 CAP 07/06/17 Melatonin (Melatonin) 1 Mg Tablet.er, 3 TAB PO QDAY 06/20/17 Cholecalciferol (Vitamin D3) (VITAMIN D3) 1,000 Unit Tablet, 1000 UNIT PO QDAY, TAB 06/20/17 Ibuprofen (IBUPROFEN) 200 Mg Tablet, 2 TAB PO Q8H Y for PAIN, TAB (MOTRIN): TAKE 400 MG EVERY 8 HRS NEEDED FOR PAIN. 02/03/17 Hydroxyzine Pamoate (HYDROXYZINE PAMOATE) 25 Mg Capsule, 25 TAB PO Q8H Y for ANXIETY/INSOMNIA 01/27/17 Albuterol Sulfate 90 Mcg/Act (PROAIR HFA 90 MCG/ACT) 8.5 Gm Hfa.aer.ad, 1-2 PUFF IH Q4-6H Y for DYSPNEA, INHALER 01/27/17 Multivitamin (MULTIVITAMINS) 1 Each Capsule, 1 EACH PO DAILY, CAPSULE 12/08/16 Discontinued Reported Medications Divalproex Sodium (DEPAKOTE) Unknown Strength Tab, PO BID, TAB 05/13/17 Escitalopram Oxalate (LEXAPRO) Unknown Strength Tablet, PO QDAY, TAB 05/13/17 Duloxetine Hcl (CYMBALTA) 60 Mg Capsule.dr, 90 MG PO QDAY, #5 CAP 60mg in AM, 30mg at HS 10/24/17 Discontinued Scripts Azithromycin 250 Mg Tab (AZITHROMYCIN 250 MG TAB) 250 Mg Tablet, 1 TAB PO QDAY, #6 TAB Take 2 tabs today and then 1 tab a day until gone. Prov:MARISOL MOJICA PA-C 06/20/17 Prednisone (PREDNISONE) 20 Mg Tablet, 20 MG PO BID, #10 TAB Prov:MARISOL MOJICA PA-C 06/20/17 Diet: Regular Activity: As Tolerated Copies to: SKINNY EMMANUEL MD Venous Thromboembolism Antithrombotics Is Pt On Any Antithrombotics?: No Problem Qualifiers (1) Hypertension: Hypertension type: essential hypertension Qualified Codes: I10 - Essential ( primary) hypertension SANTI RICEP Jul 07, 2017 09:01
[2017-07-07] MEDS ORDERED: INFLUENZA VIRUS VAC 0.5 ML SYR IM ONLY ONE (10:00)
[2017-07-07] MEDS ORDERED: MULTIVITAMINS TAB PO SCH (10:30)
[2017-07-07] MEDS ORDERED: FAMOTIDINE 20 MG TAB PO ONE (10:30)
[2017-07-07] MEDS ORDERED: DIVALPROEX SOD DR 500 MG TAB PO SCH (10:30)
[2017-07-08] MEDS ORDERED: TIOTROPIUM BROM INH 18 MCG/CAP INH SCH (06:00)
== END 2017-07-07 08:53 ==
LOC: ER 19:50 → MED 21:42
PROVIDERS: ADMIT Family Medicine; ATTEND Family Medicine
DX: T43.212A Poisoning by selective serotonin and norepinephrine reuptake inhibitors, intentional self-harm, initial encounter (principal); J44.9 Chronic obstructive pulmonary disease, unspecified; I12.9 Hypertensive chronic kidney disease with stage 1 through stage 4 chronic kidney disease, or unspecified chronic kidney disease; N18.3 Chronic kidney disease, stage 3 (moderate); E66.01 Morbid (severe) obesity due to excess calories
CPT/HCPCS: 36415; 80305; 81001; 83735; 84443; 85025; 93005; 94640; 96361; 96365; 99285; A9270; G0378; G0480; J2405; J3475; J7030; J7620; 80320; 80329; 82040; 82247; 82310; 82374; 82435; 82565; 82947; 84075; 84132; 84155; 84295; 84450; 84460; 84520; J3535

== ENCOUNTER → 2017-07-06 | Outpatient (CLI) | payer MEDICARE, BC ==
[2015-06-25 12:47] VITALS: BMI 43.0
[~2017-07-06] MED LIST changes: -IOPAMIDOL 76% 75 ML INFUS BTL 75 ML ONE; +OMEG10004 PO
== END ==
LOC: AMB 19:04
PROVIDERS: ATTEND Nurse Practitioner
DX: R45.851 Suicidal ideations (principal); R09.02 Hypoxemia
CPT/HCPCS: A0425; A0427

== ENCOUNTER 2017-07-07 11:30 | Inpatient (IN) | payer MEDICARE, BC ==
[2015-06-25 12:47] VITALS: Ht 162.6 cm; Wt 120.7 kg
[~2017-07-07] VITALS: Ht 162.6 cm; Wt 120.7 kg
[~2017-07-07 11:30] MED LIST changes: +OMEG10004 PO; -RANI-324 PO; +RANI-366 PO
[2017-07-07 12:08] VITALS: BP 116/74
[2017-07-07] MEDS ORDERED: MAG HYD/AL HYD/SIMETH 30ML UDC PO PRN (12:20)
[2017-07-07] MEDS ORDERED: IPRATROPIUM 0.5MG/2.5ML NEB NEB PRN (14:00)
[2017-07-07] MEDS: BUDESO/FORMOT 160/4.5 MCG 6 GM INH SCH (17:08)
--- NOTE | 2017-07-07 18:20 | BHS - Psychiatric Evaluation ---
ER - Title 25 MHE Evaluation Title 25 Evaluation Patient Detained By: Physician, Therapist (Rose Marie Negron M.S., L.A.T., L.P.C.) Referral Source: Professional: [facility] therapist, Rose Marie Negron Date Patient Detained: Jul 07, 2017 Time Patient Detained: 10:00 Date Halfway Expires: Jul 10, 2017 Time Halfway Expires: 10:00 Legal Status: Police Hold: No Legal Status: Residence: [facility] Resident, State Resident Assessment Data Provided By: Patient, Therapist HPI/ROS: Patient, Natividad Loaiza, reported she had been experiencing suicidal ideation all week. She also had to "put her sick cat down this week."Went to bed with ideation about dying and woke up in a different room she says, and discovered an empty Cymbalta bottle. Admit due to SI or Attempt: Yes Suicide Plan: Has Plan w/out Access (Medications given by nurse.) Current Suicide Plan Patient denies current suicidality, but says this morning she was suicidal related to broken phone, overwhelming finances, and loss of pet cat. Alcohol or Drugs Involved: No Is Patient Info Reliable: Yes Is Collateral Info Reliable: Yes Current Home Psych Meds: Lexapro and Cymbalta Mental Status Exam General Appearance: Casual, Good Eye Contact, Cooperative, Good Interaction Speech: Clear, Spontaneous, Normal Rate, Normal Rhythm, Normal Volume, Normal Tone Mood: Dysthmic/Depressed Affect: Sad, Other (Says, "I feel frustrated, especially about all the money I owe on my trailer.") Thought Process: Goal Directed Thought Content: Suicidal Ideation Sensorium: Clear Cognition: Alert & Oriented-Person, Alert & Oriented-Place, Alert & Oriented- Time Memory: Immediate, Recent, Remote Insight Judgment: Poor Sleep: Normal Hallucinations: Denies Delusions: Denies Current Risk & History Current Dangerous Risk Assessm: Current Suicide Ideation (Patient denies current suicidality, but says this morning she was suicidal related to broken phone, overwhelming finances, and loss of pet cat.) Past Dangerous Risk Assessm: Suicide Ideation-last 6mo, Suicide Attempts-last 6mo Previous Suicide Attempt: Past - Low Lethality Number of Attempts/Description Seven [facility]. Previous Psychiatric Illness: Yes Previous Diagnosis/Treatment: Somatic symptom disorder. Persistent depressive disorder. Chronic obstructive pulmonary disease. Obstructive sleep apnea. Maladaptive coping mechanisms. Previous Psychiatric Treatment: Yes Previous Treatment Description Patient has been in a mcc facility in [place], [place] -.Malik Loaiza. This treatmetn was recommended for her after a Title 25 Halfway in February,. Patient says she liked the structure and setting there, and might like to return there. Risk Assessment & Disposition Evaluated Risk Assessment: Risk assessment is high related to patient's experience of stressors. At times , maladaptive coping keeps patient from being able to keep herself safe, and she calls ambulance to get her to the hospital so she has a safe environment here at [facility]. Impression: Primary Impression: Suicide attempt Additional Impressions: Adjustment disorder with depressed mood Somatic symptom disorder Persistent depressive disorder Meets Mental Illness Req.: Yes Meets Dangerousness Req.: Yes Emergency Halfway to be: Upheld Decision Comment: Patient states she is considering selling her trailer because she is overwhelmed with being behind in payments. As well, her pet cat needed to be put down, and her phone broke leaving her isolated from persons who could talk with her and support her through her difficulties. She is very overwhelmed, and not feeling safe. During dysregulated times, patient has exhibited suicidal behaviors and needed professional help. The nursing home is upheld based on these circumstances. Date of Decision: Jul 07, 2017 Time of Decision: 19:00 Patient is Medically Stable at: Yes Disposition: [facility] Problem Qualifiers BETHANY MCCOY LPC Jul 07, 2017 18:20
--- NOTE | 2017-07-07 19:37 | BHS - Psychiatric Evaluation ---
Title 25 Evaluation Hearing Report: 109 Date of Report: Jul 07, 2017 Examiner: Connie Mccoy M.S., L.P.CToya Patient Detained By: Physician, Therapist (Rose Marie Negron M.S., L.A.T., L.P.C.) 24hr Mental Health Eval By: Connie Mccoy M.S., Becki Date Patient Detained: Jul 07, 2017 Time Patient Detained: 10:00 Date Penitentiary Expires: Jul 10, 2017 Time Penitentiary Expires: 10:00 Legal Status: Police Hold: No Legal Status: Relationship: Single Legal Status: Residence: [facility] Resident, State Resident Referral Source: Professional: [facility] therapist, Rose Marie Negron Assessment Data Provided By: Patient, Therapist Chief Complaint: Patient is unstable and needs structured environment to be safe. Patient says her current stressors are overwhelming for her, and at times, patient will think about or attempt suicide when she is overwhelmed. HPI/ROS: Patient, Natividad Loaiza, reported she had been experiencing suicidal ideation all week. She also had to "put her sick cat down this week."Went to bed with ideation about dying and woke up in a different room she says, and discovered an empty Cymbalta bottle (believing she ingested the medication in an overdose). Reliability of Pt-Evidenced By Patient is mostly reliable, at times can inflate symptomatology to support medical care. This is related to Somatic Symptom Disorder Current Dangerous Risk Assess: Current Suicide Ideation (Patient denies current suicidality, but says this morning she was suicidal related to broken phone, overwhelming finances, and loss of pet cat.), Protective Factors (Feels safe in clinical settings.) Current Risk Summary: Patient suicidal ideation and suicidal behaviors indicate high severity and patient's wish, at times, to end her life. The frequency and severity of her suicidal gestures are escalating, and requiring high levels of clinical and safety measures each occasion. Patient having intense suicidal and self injury episodes despite high and frequent outpatient support. It seems patient outpatient care is not sufficient to maintain patient consistent safety. Past Dangerous Risk Assess: Suicide Ideation-last 6mo, Suicide Attempts-last 6mo BHS - Exam Physical Exam Vital Signs Vital Signs 07/07/17 12:08 Temp 98.7 Pulse 89 Resp 14 B/P (MAP) 116/74 (88) Pulse Ox 96 O2 Delivery Nasal Cannula O2 Flow Rate 2.0 Mental Status Exam General Appearance: Casual, Good Eye Contact, Cooperative, Good Interaction Speech: Clear, Spontaneous, Normal Rate, Normal Rhythm, Normal Volume, Normal Tone Mood: Dysthmic/Depressed Affect: Sad, Other (Says, "I feel frustrated, especially about all the money I owe on my trailer.") Thought Process: Goal Directed Thought Content: Suicidal Ideation Sensorium: Clear Cognition: Alert & Oriented-Person, Alert & Oriented-Place, Alert & Oriented- Time Memory: Immediate, Recent, Remote Insight Judgment: Poor Sleep: Normal Title 25 History Psychiatric History: Patient, Natividad Loaiza, has had multiple inpatient psychiatric hospitalizations , dating back to March 2015. Her last psychiatric hospitalization was March 01, 2017. Her initial presentation to the emergency room in March, occurred when her job hours were cut back and she was also undergoing some family conflict. She sees her therapist, Filomena, at [facility], one time weekly, as well as [facility] P[facility] for medications. Patient sees Dr Trevino twice a month with encouragement to see this provider in place of multiple Emergency Room visits. Patient has engaged at times in parasuicidal behaviors in the past. At times, she has overwhelming emotions such as rage or sadness, and asked to be brought to [facility] via Law Enforcement. Patient was in a mcc setting in [place], [place] after 7 psychiatric hospitalization in 2016. She reports liking this setting. Family Psychiatric Hx: Per record review, notable for a brother with significant autism spectrum disorder. Both of her parents suffered from Alcohol Use Disorder. Both parents are now . Social History: Per record review, patient was born in [place], [place] and raised there. Her parents were at the time of her and remained , and now both are . She has never been in the . She has never , has no children, has no significant other. Patient has one full brother, one half-brother and one full sister. She reports a good relationship with them. 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 She does receive current Social Security Disability and lives independently in her own trailer. She graduated from high school in [place], [place], attended one year of college in [place]. She denies history of physical, emotional or sexual abuse. Prior Hospitalizations: April 01, 2015 December 03, 2016 December 15, 2016 December 25, 2016 January 09, 2017 January 28, 2017 February 13, 2017 March 01, 2017 Prior Outpatient Treatment: Patient has seem Filomena at [facility], Dr. Trevino, and Ghislaine Puga. Drug & Alcohol Use: Patient denies use of alcohol. She tends to avoid alcohol related to her parents suffering from alcoholism. She denies history of illicit drug use now or in the past. She has smoked cannabis in the past, but denies current use. She is a tobacco smoker, smoking five to six cigarettes per day. Current Living Situation: Patient lives alone, [address] in her own trailer, but is several months behind in payments on this trailer. Patient has pets. patient says at times she has limited money for gas and phone. Employment Issues: Patient is not currently working. She had most recently worked at [employer]. Financial Issues: Patient receives [employer]. Says she is in financial despair. Patient Strengths: Patient is historically congenial, enjoys interaction, and laughs often. She is quick to encourage others, and enjoys her pets and going to the [employer] often. Current Medical Data: Patient medical maladies are numerous and likely comprise Somatization Disorder. 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 Relevant Medications: Cymbalta and Lexapro Assessment and Plan Course of Care: Course of care will be consistent with patient who is detained because of suicidal behaviors. A stabilizing environment will be provided and tailored to patient's individual needs. Diagnostic Impressions: Somatic symptom disorder. Persistent depressive disorder. Chronic obstructive pulmonary disease. Obstructive sleep apnea. Maladaptive coping mechanisms. Assessment and Plan: Necessary precautions will be implemented. Individual and group therapy will be provided. Medications will be administered, titrated accordingly. Therapy to focus on resolution of her focus on physical and psychological symptoms and the sick role. Risk Formulation: The patient "evidences a substantial probability of physical harm to self as manifested by evidence of recent threats of/or attempts at suicide or serious bodily harm" as evidenced by:Patient suicidal ideation and suicidal behaviors indicate high severity and patient's wish, at times, to end her life. The frequency and severity of her suicidal gestures are escalating, and requiring high levels of clinical and safety measures each occasion. Patient having intense suicidal and self injury episodes despite high and frequent outpatient support. It seems patient outpatient care is not sufficient to maintain patient consistent safety. Patient response to stressors is at times a severe, with a risk to her life via suicide. Patient lives alone and reports profound isolation and loneliness. Chronic suicidality and isolation pose a high risk/ threat to patient's safety that cannot be currently managed outside of a hospital setting. Recommendations of [facility] Team: It is therefore recommended by the Behavioral Health Services Team: Patient stay at [facility] the full duration of her 72 hour hold or until she becomes stable. She is currently assessed as unstable. It may be further requested within a 109 Title 25 hearing that patient remain at [facility] for further stabilization for up to 10 days. CONNIE MCCOY [employer] Jul 07, 2017 19:37
[2017-07-07] MEDS ORDERED: DIVALPROEX SOD DR 500 MG TAB PO SCH (21:00)
[2017-07-07 21:01] VITALS: BP 126/68
[2017-07-07] MEDS: PRAMIPEXOLE DIHYDROCHL 0.25 MG PO SCH (21:12)
[2017-07-07] MEDS: MELATONIN 3 MG TAB PO SCH (21:12)
[2017-07-08] MEDS: TIOTROPIUM BROM INH 18 MCG/CAP INH SCH (05:27)
[2017-07-08] MEDS: BUDESO/FORMOT 160/4.5 MCG 6 GM INH SCH ×2 (05:28→18:00)
[2017-07-08 05:55] VITALS: BP 111/47
[2017-07-08] MEDS: OMEGA-3 500 MG CAP PO SCH (08:16)
[2017-07-08] MEDS: FAMOTIDINE 20 MG TAB PO SCH (08:16)
[2017-07-08] MEDS: CHOLECALCIFEROL 1000 UNIT TAB PO SCH (08:16)
[2017-07-08] MEDS: MULTIVITAMINS TAB PO SCH (08:16)
[2017-07-08] MEDS: ESCITALOPRAM OXALATE 10 MG TAB PO SCH (08:16)
[2017-07-08] MEDS: METOPROLOL SUCC XL 50 MG TABCR 50 MG TAB.ER.24H PO SCH (08:16)
[2017-07-08] MEDS ORDERED: MULTIVITAMINS TAB PO SCH (09:00)
[2017-07-08] MEDS ORDERED: DULoxetine HCL 30 MG CAPCR PO ONE (09:00)
--- NOTE | 2017-07-08 16:44 | HISTORY AND PHYSICAL ---
DATE OF ADMISSION: July 07, 2017 Patient was seen on the morning of July 08, 2017 at approximately 0930 hours for this note concerning this dictation. PRESENTING PROBLEM/CHIEF COMPLAINT Status post parasuicidal versus suicide attempt. HISTORY OF PRESENT ILLNESS This is a very well-known 51-year-old female who presented to the ER after calling EMS and stating she had overdosed on approximately 30 of her Cymbalta tablets. Patient then transferred to medical floor on a voluntary basis for overnight observation. It is worthy of note that no clinical symptoms of overdose on Cymbalta were present such as hyperthermia, tachycardia or hypertension. Patient then cleared medically, was emergency detained and brought to Behavioral Health Unit for further evaluation. Patient has a long history of psychiatric decompensation, which notably started when patient was approximately 48 years old. Previous to that patient had zero contact with psychiatric services, and very little contact with medical floor. 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 Again, since 2014 patient has had multiple admissions. [facility] has [facility] , where she continues to do well in social environments. Patient no longer working, which was likely a very strong social outlet for her as well. Patient herself upon arrival to the Behavioral Health Unit, smiling, interacting well, reporting that her depression was largely in remission again. MENTAL HEALTH HISTORY Patient has had numerous admissions here to [facility], dating back to around March of 2015. Patient has had continued followup with multiple providers. She is currently seeing Ghislaine Puga for psychiatric medications. Patient also sees Dr. Trevino. Most recent medication change included being placed on Depakote by Ghislaine Puga in an effort to stabilize mood. Unfortunately patient suffers from significant obesity, but also unfortunately patient has developed "allergies" to many, many medications within the last few years. Patient seems to use allergic or complaints of reactions to meds for further need to come to the emergency room to be evaluated. FAMILY PSYCHIATRIC HISTORY Notable for brother with significant autism spectrum disorder. Both of her parents suffered from alcohol use disorder and are now . PAST MEDICAL HISTORY Significant for COPD, obesity, obstructive sleep apnea. Patient is now compliant with BiPAP machine. She has a history of migraine headaches, history of left hand surgery for abnormal growth removal, and nerve injury sequela secondary to the left hand surgery. 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 Patient has multiple medical complaints over the last few years consistent with somatic symptom disorder. SOCIAL HISTORY Patient was born in [place], [place], raised there. Parents were at the time of her , remained , although now . She has never been in the , never , has no children, has no significant other. Patient has one full biological brother, one half brother and one full biologic sister. She reports a good relationship at times with them. 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 Patient now unable to work any longer. She says her shoulders are too painful. Patient now currently on Social Security Disability, lives independently in her own home. Graduated from high school in [place], [place], attended one year of college in [place]. She denies a history of physical, emotional or sexual abuse. SUBSTANCE USE HISTORY Patient denies use of alcohol or drugs. She does smoke cigarettes, but is down to about five cigarettes a day. She suffers from significant COPD. Patient has smoked cannabis in the remote past. LEGAL HISTORY None. PHYSICAL EXAMINATION GENERAL: Please see emergency room note and medical floor notes. Overall unremarkable 51-year-old female stating she had overdosed on Cymbalta, but also simultaneously stating she did not remember doing so. Patient in no acute distress while on medical floor for overnight observation or upon transfer to Behavioral Health Unit. LABORATORY DATA CBC at the time of admission unremarkable. CMP notable for BUN elevated at 24 with a creatinine of 1.30. This later fell to elevations of BUN at 20 and a creatinine of 1.0 on medical floor. TSH 1.88. Urinalysis unremarkable. Toxicology screen negative for substances of abuse with a nondetectable serum alcohol level. MENTAL STATUS EXAMINATION GENERAL APPEARANCE, BEHAVIOR AND ATTITUDE: Patient initially presenting for interview with this provider with depressed affect which is historically the way the patient presents. Within a short amount of time in talking with this provider and other treatment team staff, patient laughing, joking and interacting very well. Patient making good eye contact. No periods of tearfulness. No bizarre mannerisms or tics. SPEECH: Within normal limits, regular rate, rhythm volume and tone. MOOD: Described as improved. AFFECT: Again started out neutral to flat and quickly progressing to full, and mood congruent overall. THOUGHT PROCESSES: Appear goal directed. Patient stating she intends to go back to [facility], and she desires this. Patient overall logical. No loose associations or flight of ideas. THOUGHT CONTENT: Free of auditory or visual hallucinations, ideas of reference , thought broadcastings, delusions, obsessions, compulsions. Patient now denying any suicidal or homicidal ideation. SENSORIUM: Clear. COGNITION: Alert and oriented to person, place, time and mostly to situation. MEMORY: Immediate, recent and remote estimated intact. INTELLIGENCE: Historically average based on interview and previous knowledge of this patient. INSIGHT AND JUDGMENT: Remains somewhat impaired. Patient spontaneously engaging in overdosing or verbalizing overdosing with parasuicidal behaviors. ASSESSMENT This is very well-known 51-year-old female who again has notably suffered an acute onset of psychiatric decompensation in general along with medical decompensation, starting in roughly October of 2014. At this time patient very cooperative and appears to be missing out on socialization in her life. Patient also stating that current identifiable stressors are the recent loss of her pet, a cat, and also patient reporting mounting financial concerns which worry her. Patient is wanting again to transfer to [facility]. Will continue to work with court system. Patient emergency detained at this time to see what can be arranged. 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 Persisting depressive disorder versus major depression. Financial and social stressors exist. PLAN 1. Admit to the unit. 2. Necessary precautions to be implemented. 3. Patient will participate in individual and group therapy. 4. Medications to be adjusted, titrated accordingly. We will stop Depakote at this time due to patient's current obesity status. 5. Will look into potential other mood stabilizers. Patient notably having an "allergy" to Topamax. 6. Estimated length of stay unknown at this time. We will continue to work with court system. ANIBAL
[2017-07-08] MEDS: PRAMIPEXOLE DIHYDROCHL 0.25 MG PO SCH (20:58)
[2017-07-08] MEDS: MELATONIN 3 MG TAB PO SCH (20:58)
[2017-07-08 21:09] VITALS: BP 123/72
[2017-07-09] MEDS: TIOTROPIUM BROM INH 18 MCG/CAP INH SCH (06:08)
[2017-07-09] MEDS: BUDESO/FORMOT 160/4.5 MCG 6 GM INH SCH ×2 (06:08→17:16)
[2017-07-09 06:23] VITALS: BP 106/42
[2017-07-09] MEDS: CHOLECALCIFEROL 1000 UNIT TAB PO SCH (08:23)
[2017-07-09] MEDS: METOPROLOL SUCC XL 50 MG TABCR 50 MG TAB.ER.24H PO SCH (08:23)
[2017-07-09] MEDS: FAMOTIDINE 20 MG TAB PO SCH (08:23)
[2017-07-09] MEDS: ESCITALOPRAM OXALATE 10 MG TAB PO SCH (08:23)
[2017-07-09] MEDS: MULTIVITAMINS TAB PO SCH (08:23)
[2017-07-09] MEDS: OMEGA-3 500 MG CAP PO SCH (08:24)
[2017-07-09] MEDS ORDERED: DULoxetine HCL 30 MG CAPCR PO SCH (10:00)
[2017-07-09] MEDS ORDERED: BISACODYL 5 MG TABEC PO ONE (10:30)
[2017-07-09 11:15] VITALS: BP 123/64
--- NOTE | 2017-07-09 12:07 | BHS Progress Note ---
S - Subjective Progress Notes Subjective Patient doing well on the unit, admits to having more of a "bad" day today, but remains putting effort into her stay. Will continue to work with patient and court system to ensure entrance into care home. Patient denies any other complaints, some constipation will be addressed. Suicidal Ideation: Resolving Homicidal Ideation: None [facility] - Objective Physical Exam Vital Signs Vital Signs Date Time Temp Pulse Resp B/P (MAP) Pulse Ox O2 Delivery O2 Flow Rate FiO2 07/09/17 11:15 99.3 72 123/64 (83) 90 Room Air 07/09/17 06:23 16 2.0 Hematology Test 07/07/17 00:00 07/07/17 13:40 Urine HCG, Qualitative Negative (NEGATIVE) Valproic Acid (Depakene) Level 14.9 ug/ml Chemistry Test 07/07/17 00:00 07/07/17 13:40 Urine HCG, Qualitative Negative (NEGATIVE) Valproic Acid (Depakene) Level 14.9 ug/ml Toxicology Test 07/07/17 13:40 Valproic Acid (Depakene) Level 14.9 ug/ml Urinalysis Test 07/07/17 00:00 Urine HCG, Qualitative Negative (NEGATIVE) Muscle Strength and Tone: WNL Gait and Station: Steady [facility] Medications Reviewed: Side Effects, Benefits of Medication, Risks Allergies Reviewed: Yes Mental Status Exam General Appearance: Casual, Well Groomed, Good Eye Contact, Cooperative, Polite , Good Interaction, No Unkept, No Tearful, No Psychomotor Agitation, No Psychomotor Retardation, No Bizarre Mannerisms, No Tics Speech: Clear, Spontaneous, Normal Rate, Normal Rhythm, Normal Volume, Normal Tone, No Delayed, No Slurred, No Garbled, No Rambling, No Inappropriate Mood: Dysthmic/Depressed Affect: Full and Appropriate, Calm, No Sad, No Withdrawn, No Tearful, No Anxious, No Agitated Thought Process: Goal Directed, No Loose Associations, No Flight of Ideas Thought Content: Suicidal Ideation (resolving), No Homicidal Ideation, No Delusions, No Auditory Halllucinations, No Visual Hallucinations, No Thought Broadcasting, No Ideas of Reference, No Obsessions, No Compulsions Sensorium: Clear Cognition: Alert & Oriented-Person, Alert & Oriented-Place, Alert & Oriented- Time Memory: Immediate, Recent, Remote Intelligence: Average Insight Judgment: Poor (sick role behavior continues in this patient. ) [facility] Assessment and Plan [id number] Encounter Date: Jul 09, 2017 [id number] Encounter Time: 11:30 [facility] Plan: Necessary Precautions, Individual/Group Therapy, Admin/Titrate Meds, Educate Patient Tobacco Medications: Started Multpiple Antipsychotics Used: No Problems: (1) Persistent depressive disorder Status: Chronic (2) Somatic symptom disorder Status: Chronic (3) Adjustment disorder with depressed mood Optional Permanent Comment: recent financial stressors. Last Edited By: Alexis Monet on Jul 09, 2017 12:04 Status: Acute Condition 1. continue treatment. 2. will look at care home. ALEXIS MONET MD Jul 09, 2017 12:06
[2017-07-09] MEDS: IBUPROFEN 200 MG TAB PO PRN (13:18)
[2017-07-09] MEDS: ALBUTEROL SULFATE 90 MCG/ACT 8.5 GM HNH INH PRN (13:19)
--- NOTE | 2017-07-09 15:06 | Medical Nutrition Therapy ---
Nutrition Anthropometrics Height (Inches): 64.00 Height (Calculated Centimeters: 162.403282 Weight (Pounds): 266 Weight (Calculated Kilograms): 120.656 BMI Calculated: 43.04 Douglas Nutrition Score: Adequate Douglas Nutrition Risk Score: 22 Dietary Referral Nutrition Risk Factors: Unplanned Loss >10lbs Nutrition Risk Comment: CHIKI HAD PT ON 1800 TIMOTHY DAILY Nutrition/Food History Breakfast: at home: instant oatmeal Lunch: sandwich Dinner: casserole Nutritional Education Nutrition Education Topic: Weight Loss Diet Learning Readiness: Interested Teaching Methods: Discussion, Handout Response to Teaching: Verbalize understanding Teaching Recipient: Patient Nutrition Counseling: pt states has gained wt after going on prenisone. Currently not taking it. Pt is interested in wt loss. Discussed kcal counting vs mindful eating, portion sizes and plate method. Provided handout and reviewed plate method. Pt states likes veggies but doesn't eat them at home but willing to try. Pt did meal planning for 3 meals using plate method and limiting CHO to 2 servings per meal. Nutrition Monitoring & Eval RD Patient Assessment Time: [address] Assessment Type: RD Education MIMI BARROW Jul 09, 2017 15:06
[2017-07-09] MEDS ORDERED: DULoxetine HCL 30 MG CAPCR PO ONE (16:40)
[2017-07-09] MEDS: PRAMIPEXOLE DIHYDROCHL 0.25 MG PO SCH (21:24)
[2017-07-09] MEDS: MELATONIN 3 MG TAB PO SCH (21:24)
[2017-07-09 22:46] VITALS: BP 119/75
[2017-07-10] MEDS: TIOTROPIUM BROM INH 18 MCG/CAP INH SCH (05:49)
[2017-07-10] MEDS: BUDESO/FORMOT 160/4.5 MCG 6 GM INH SCH ×2 (05:50→17:08)
[2017-07-10 06:15] VITALS: BP 132/57
[2017-07-10] MEDS: FAMOTIDINE 20 MG TAB PO SCH (08:05)
[2017-07-10] MEDS: ESCITALOPRAM OXALATE 10 MG TAB PO SCH (08:05)
[2017-07-10] MEDS: OMEGA-3 500 MG CAP PO SCH (08:06)
[2017-07-10] MEDS: METOPROLOL SUCC XL 50 MG TABCR 50 MG TAB.ER.24H PO SCH (08:06)
[2017-07-10] MEDS: DULoxetine HCL 30 MG CAPCR PO SCH ×2 (08:06→14:20)
[2017-07-10] MEDS: CHOLECALCIFEROL 1000 UNIT TAB PO SCH (08:06)
[2017-07-10] MEDS: MULTIVITAMINS TAB PO SCH (08:06)
--- NOTE | 2017-07-10 10:24 | BHS Progress Note ---
[facility] - Subjective Progress Notes Subjective Patient doing well today, constipation resolving, mood improved, sleep good, No other concerns today. Patient remains verbalizing desire to enter alf, and likely exit [facility] permanently. Will continue to solidify skilled nursing discharge plans. Suicidal Ideation: None Homicidal Ideation: None [facility] - Objective Physical Exam Vital Signs Vital Signs Date Time Temp Pulse Resp B/P (MAP) Pulse Ox O2 Delivery O2 Flow Rate FiO2 07/10/17 06:15 97.7 62 132/57 (82) 97 CPAP 2.0 07/09/17 06:23 16 Hematology Test 07/07/17 00:00 07/07/17 13:40 Urine HCG, Qualitative Negative (NEGATIVE) Valproic Acid (Depakene) Level 14.9 ug/ml Chemistry Test 07/07/17 00:00 07/07/17 13:40 Urine HCG, Qualitative Negative (NEGATIVE) Valproic Acid (Depakene) Level 14.9 ug/ml Toxicology Test 07/07/17 13:40 Valproic Acid (Depakene) Level 14.9 ug/ml Urinalysis Test 07/07/17 00:00 Urine HCG, Qualitative Negative (NEGATIVE) Muscle Strength and Tone: WNL Gait and Station: Steady [facility] Medications Reviewed: Side Effects, Benefits of Medication, Risks Allergies Reviewed: Yes Mental Status Exam General Appearance: Casual, Well Groomed, Good Eye Contact, Cooperative, Polite , Good Interaction, No Unkept, No Tearful, No Psychomotor Agitation, No Psychomotor Retardation, No Bizarre Mannerisms, No Tics Speech: Clear, Spontaneous, Normal Rate, Normal Rhythm, Normal Volume, Normal Tone, No Delayed, No Slurred, No Garbled, No Rambling, No Inappropriate Mood: Dysthmic/Depressed Affect: Full and Appropriate, Calm, No Sad, No Withdrawn, No Tearful, No Anxious, No Agitated Thought Process: Organized, Logical, Goal Directed, No Loose Associations, No Flight of Ideas Thought Content: Suicidal Ideation (none today), No Homicidal Ideation, No Delusions, No Auditory Halllucinations, No Visual Hallucinations, No Thought Broadcasting, No Ideas of Reference, No Obsessions, No Compulsions Sensorium: Clear Cognition: Alert & Oriented-Person, Alert & Oriented-Place, Alert & Oriented- Time Memory: Immediate, Recent, Remote Intelligence: Average Insight Judgment: Poor (regression to sick role behavior continues in this patient. ) [facility] Assessment and Plan Yjgh-[id number] Encounter Date: Jul 10, 2017 Uceo-ca-[id number] Encounter Time: 09:00 [facility] Plan: Necessary Precautions, Individual/Group Therapy, Admin/Titrate Meds, Educate Patient Tobacco Medications: Started Multpiple Antipsychotics Used: No Problems: (1) Persistent depressive disorder Status: Chronic (2) Somatic symptom disorder Status: Chronic (3) Adjustment disorder with depressed mood Optional Permanent Comment: recent financial stressors. Last Edited By: Alexis Monet on Jul 09, 2017 12:04 Status: Acute Condition 1. continue treatment. 2. no other concerns. 3. work on skilled nursing discharge plans. ALEXIS MONET MD Jul 10, 2017 10:24
[2017-07-10] MEDS: ALBUTEROL SULFATE 90 MCG/ACT 8.5 GM HNH INH PRN (12:52)
[2017-07-10 13:25] VITALS: BP 112/60
[2017-07-10] MEDS: IBUPROFEN 200 MG TAB PO PRN (17:02)
[2017-07-10] MEDS: NYSTATIN 100,000 U/GM PWD 15GM TP SCH (20:54)
[2017-07-10] MEDS: PRAMIPEXOLE DIHYDROCHL 0.25 MG PO SCH (20:54)
[2017-07-10] MEDS: MELATONIN 3 MG TAB PO SCH (20:54)
[2017-07-10 21:20] VITALS: BP 117/79
[2017-07-11] MEDS: BUDESO/FORMOT 160/4.5 MCG 6 GM INH SCH ×2 (05:47→17:05)
[2017-07-11] MEDS: TIOTROPIUM BROM INH 18 MCG/CAP INH SCH (05:47)
[2017-07-11 05:50] VITALS: BP 119/60
[2017-07-11] MEDS: DULoxetine HCL 30 MG CAPCR PO SCH ×2 (07:54→13:20)
[2017-07-11] MEDS: FAMOTIDINE 20 MG TAB PO SCH (07:54)
[2017-07-11] MEDS: OMEGA-3 500 MG CAP PO SCH (07:54)
[2017-07-11] MEDS: ESCITALOPRAM OXALATE 10 MG TAB PO SCH (07:54)
[2017-07-11] MEDS: MULTIVITAMINS TAB PO SCH (07:54)
[2017-07-11] MEDS: CHOLECALCIFEROL 1000 UNIT TAB PO SCH (07:54)
[2017-07-11] MEDS: METOPROLOL SUCC XL 50 MG TABCR 50 MG TAB.ER.24H PO SCH (07:54)
[2017-07-11] MEDS: NYSTATIN 100,000 U/GM PWD 15GM TP SCH ×2 (08:43→21:09)
--- NOTE | 2017-07-11 10:07 | BHS Progress Note ---
[facility] - Subjective Progress Notes Subjective "Pretty good." Rates depression level a 3, denies SI, anxiety 0, anger, 0, guilt 0. Reports slept well. Suicidal Ideation: None Homicidal Ideation: None [facility] - Objective Physical Exam Vital Signs Vital Signs 07/10/17 07/10/17 07/10/17 07/11/17 06:15 13:25 21:20 05:50 Temp 97.1 Pulse 62 Resp 16 B/P (MAP) 119/60 (79) Pulse Ox 94 O2 Delivery Room Air O2 Flow Rate 2.0 FiO2 93.0 Muscle Strength and Tone: WNL Gait and Station: Steady [facility] Medications Reviewed: Side Effects, Benefits of Medication, Risks Allergies Reviewed: Yes Mental Status Exam General Appearance: Casual, Well Groomed, Good Eye Contact, Cooperative, Polite , Good Interaction, No Unkept, No Tearful, No Psychomotor Agitation, No Psychomotor Retardation, No Bizarre Mannerisms, No Tics Speech: Clear, Spontaneous, Normal Rate, Normal Rhythm, Normal Volume, Normal Tone, No Delayed, No Slurred, No Garbled, No Rambling, No Inappropriate Mood: Dysthmic/Depressed Affect: Full and Appropriate, Calm, No Sad, No Withdrawn, No Tearful, No Anxious, No Agitated Thought Process: Organized, Logical, Goal Directed, No Loose Associations, No Flight of Ideas Thought Content: Suicidal Ideation (none today), No Homicidal Ideation, No Delusions, No Auditory Halllucinations, No Visual Hallucinations, No Thought Broadcasting, No Ideas of Reference, No Obsessions, No Compulsions Sensorium: Clear Cognition: Alert & Oriented-Person, Alert & Oriented-Place, Alert & Oriented- Time Memory: Immediate, Recent, Remote Intelligence: Average Insight Judgment: Poor (regression to sick role behavior continues in this patient. ) [facility] Assessment and Plan [id number] Encounter Date: Jul 11, 2017 [id number] Encounter Time: 10:00 [facility] Plan: Necessary Precautions, Individual/Group Therapy, Admin/Titrate Meds, Educate Patient Tobacco Medications: Started Multpiple Antipsychotics Used: No Problems: (1) Adjustment disorder with depressed mood Optional Permanent Comment: recent financial stressors. Last Edited By: Riley Avilez on Jul 09, 2017 12:04 Status: Acute PALMA BORJA NP Jul 11, 2017 10:07
[2017-07-11 13:05] VITALS: BP 114/61
[2017-07-11] MEDS: IBUPROFEN 200 MG TAB PO PRN (14:03)
[2017-07-11] MEDS ORDERED: NICOTINE CARTRIDGE 1 EA PO PRN (14:15)
[2017-07-11] MEDS: NICOTINE INH SYSTEM 10 MG/INH INH PRN (14:41)
[2017-07-11] MEDS: PRAMIPEXOLE DIHYDROCHL 0.25 MG PO SCH (21:09)
[2017-07-11] MEDS: MELATONIN 3 MG TAB PO SCH (21:09)
[2017-07-12 01:45] VITALS: BP 113/70
[2017-07-12] MEDS: TIOTROPIUM BROM INH 18 MCG/CAP INH SCH (05:49)
[2017-07-12] MEDS: BUDESO/FORMOT 160/4.5 MCG 6 GM INH SCH ×2 (05:49→17:15)
[2017-07-12] MEDS: ESCITALOPRAM OXALATE 10 MG TAB PO SCH (08:03)
[2017-07-12] MEDS: CHOLECALCIFEROL 1000 UNIT TAB PO SCH (08:03)
[2017-07-12] MEDS: OMEGA-3 500 MG CAP PO SCH (08:03)
[2017-07-12] MEDS: DULoxetine HCL 30 MG CAPCR PO SCH ×2 (08:03→14:06)
[2017-07-12] MEDS: MULTIVITAMINS TAB PO SCH (08:03)
[2017-07-12] MEDS: METOPROLOL SUCC XL 50 MG TABCR 50 MG TAB.ER.24H PO SCH (08:03)
[2017-07-12] MEDS: FAMOTIDINE 20 MG TAB PO SCH (08:04)
--- NOTE | 2017-07-12 09:11 | BHS Progress Note ---
[facility] - Subjective Progress Notes Subjective "Just fine." Denies SI. Depression 0, Anxiety 0, Anger 0. Suicidal Ideation: None Homicidal Ideation: None [facility] - Objective Physical Exam Vital Signs Vital Signs 07/10/17 07/10/17 07/11/17 07/12/17 06:15 21:20 13:05 01:45 Temp 98.6 Pulse 64 Resp 18 B/P (MAP) 113/70 (84) Pulse Ox 95 O2 Delivery Room Air O2 Flow Rate 2.0 FiO2 93.0 Muscle Strength and Tone: WNL Gait and Station: Steady [facility] Medications Reviewed: Side Effects, Benefits of Medication, Risks Allergies Reviewed: Yes Mental Status Exam General Appearance: Casual, Well Groomed, Good Eye Contact, Cooperative, Polite , Good Interaction, No Unkept, No Tearful, No Psychomotor Agitation, No Psychomotor Retardation, No Bizarre Mannerisms, No Tics Speech: Clear, Spontaneous, Normal Rate, Normal Rhythm, Normal Volume, Normal Tone, No Delayed, No Slurred, No Garbled, No Rambling, No Inappropriate Mood: Dysthmic/Depressed Affect: Full and Appropriate, Calm, No Sad, No Withdrawn, No Tearful, No Anxious, No Agitated Thought Process: Organized, Logical, Goal Directed, No Loose Associations, No Flight of Ideas Thought Content: Suicidal Ideation (none today), No Homicidal Ideation, No Delusions, No Auditory Halllucinations, No Visual Hallucinations, No Thought Broadcasting, No Ideas of Reference, No Obsessions, No Compulsions Sensorium: Clear Cognition: Alert & Oriented-Person, Alert & Oriented-Place, Alert & Oriented- Time Memory: Immediate, Recent, Remote Intelligence: Average Insight Judgment: Poor (regression to sick role behavior continues in this patient. ) [facility] Assessment and Plan [id number] Encounter Date: Jul 12, 2017 Ctxy-[id number] Encounter Time: 09:00 [facility] Plan: Necessary Precautions, Individual/Group Therapy, Admin/Titrate Meds, Educate Patient Tobacco Medications: Started Multpiple Antipsychotics Used: No Problems: (1) Adjustment disorder with depressed mood Optional Permanent Comment: recent financial stressors. Last Edited By: Riley Avilez on Jul 09, 2017 12:04 Status: Acute PALMA BORJA NP Jul 12, 2017 09:11
[2017-07-12 09:14] VITALS: BP 108/62
[2017-07-12] MEDS: NYSTATIN 100,000 U/GM PWD 15GM TP SCH ×2 (10:44→20:35)
[2017-07-12] MEDS: NICOTINE INH SYSTEM 10 MG/INH INH PRN (15:49)
[2017-07-12 18:30] VITALS: BP 125/79
[2017-07-12] MEDS: PRAMIPEXOLE DIHYDROCHL 0.25 MG PO SCH (20:34)
[2017-07-12] MEDS: MELATONIN 3 MG TAB PO SCH (20:34)
[2017-07-12] MEDS: hydrOXYzine PAMOATE 25 MG CAP PO PRN (20:36)
[2017-07-13] MEDS: TIOTROPIUM BROM INH 18 MCG/CAP INH SCH (05:54)
[2017-07-13] MEDS: BUDESO/FORMOT 160/4.5 MCG 6 GM INH SCH ×2 (05:54→17:12)
[2017-07-13 05:55] VITALS: BP 122/63
[2017-07-13] MEDS: IBUPROFEN 200 MG TAB PO PRN (08:22)
[2017-07-13] MEDS: DULoxetine HCL 30 MG CAPCR PO SCH ×2 (08:22→15:31)
[2017-07-13] MEDS: METOPROLOL SUCC XL 50 MG TABCR 50 MG TAB.ER.24H PO SCH (08:22)
[2017-07-13] MEDS: MULTIVITAMINS TAB PO SCH (08:22)
[2017-07-13] MEDS: ESCITALOPRAM OXALATE 10 MG TAB PO SCH (08:22)
[2017-07-13] MEDS: FAMOTIDINE 20 MG TAB PO SCH (08:22)
[2017-07-13] MEDS: OMEGA-3 500 MG CAP PO SCH (08:22)
[2017-07-13] MEDS: CHOLECALCIFEROL 1000 UNIT TAB PO SCH (08:22)
[2017-07-13] MEDS: NYSTATIN 100,000 U/GM PWD 15GM TP SCH ×2 (09:22→20:42)
[2017-07-13 09:39] VITALS: BP 120/67
--- NOTE | 2017-07-13 10:14 | BHS Progress Note ---
[facility] - Subjective Progress Notes Subjective Patient interacting well on the unit, will continue current medications, patient agreeable with working with admission nurse to potentially arrange outpatient commitment, in order to promote wellness in this patient who can quickly alternate between good mood, and decompensation to the point of return of suicidal ideation. No other concerns today. Suicidal Ideation: None Homicidal Ideation: None [facility] - Objective Physical Exam Vital Signs Vital Signs Date Time Temp Pulse Resp B/P (MAP) Pulse Ox O2 Delivery O2 Flow Rate FiO2 07/13/17 09:39 97.9 80 120/67 (84) 92 Nasal Cannula 2.0 07/13/17 05:55 15 07/10/17 21:20 93.0 Hematology Test 07/07/17 00:00 07/07/17 13:40 Urine HCG, Qualitative Negative (NEGATIVE) Valproic Acid (Depakene) Level 14.9 ug/ml Chemistry Test 07/07/17 00:00 07/07/17 13:40 Urine HCG, Qualitative Negative (NEGATIVE) Valproic Acid (Depakene) Level 14.9 ug/ml Toxicology Test 07/07/17 13:40 Valproic Acid (Depakene) Level 14.9 ug/ml Urinalysis Test 07/07/17 00:00 Urine HCG, Qualitative Negative (NEGATIVE) Hematology Test 07/07/17 00:00 07/07/17 13:40 Urine HCG, Qualitative Negative (NEGATIVE) Valproic Acid (Depakene) Level 14.9 ug/ml Chemistry Test 07/07/17 00:00 07/07/17 13:40 Urine HCG, Qualitative Negative (NEGATIVE) Valproic Acid (Depakene) Level 14.9 ug/ml Toxicology Test 07/07/17 13:40 Valproic Acid (Depakene) Level 14.9 ug/ml Urinalysis Test 07/07/17 00:00 Urine HCG, Qualitative Negative (NEGATIVE) Muscle Strength and Tone: WNL Gait and Station: Steady [facility] Medications Reviewed: Side Effects, Benefits of Medication, Risks Allergies Reviewed: Yes Mental Status Exam General Appearance: Casual, Well Groomed, Good Eye Contact, Cooperative, Polite , Good Interaction, No Unkept, No Tearful, No Psychomotor Agitation, No Psychomotor Retardation, No Bizarre Mannerisms, No Tics Speech: Clear, Spontaneous, Normal Rate, Normal Rhythm, Normal Volume, Normal Tone, No Delayed, No Slurred, No Garbled, No Rambling, No Inappropriate Mood: Dysthmic/Depressed Affect: Full and Appropriate, Calm, No Sad, No Withdrawn, No Tearful, No Anxious, No Agitated Thought Process: Organized, Logical, Goal Directed, No Loose Associations, No Flight of Ideas Thought Content: Suicidal Ideation (none today), No Homicidal Ideation, No Delusions, No Auditory Halllucinations, No Visual Hallucinations, No Thought Broadcasting, No Ideas of Reference, No Obsessions, No Compulsions Sensorium: Clear Cognition: Alert & Oriented-Person, Alert & Oriented-Place, Alert & Oriented- Time, [id number] Memory: Immediate, Recent, Remote Intelligence: Average Insight Judgment: Poor (regression to sick role behavior continues in this patient. ) [facility] Assessment and Plan [id number] Encounter Date: Jul 13, 2017 [id number] Encounter Time: 10:00 [facility] Plan: Necessary Precautions, Individual/Group Therapy, Admin/Titrate Meds, Educate Patient Tobacco Medications: Started Multpiple Antipsychotics Used: No Problems: (1) Persistent depressive disorder Status: Chronic (2) Somatic symptom disorder Status: Chronic (3) Adjustment disorder with depressed mood Optional Permanent Comment: recent financial stressors. Last Edited By: Alexis Monet on Jul 09, 2017 12:04 Status: Acute Condition 1. continue current medications. 2. work on appropriate placement with potential outpatient commitment. ALEXIS MONET MD Jul 13, 2017 10:14
[2017-07-13] MEDS: PRAMIPEXOLE DIHYDROCHL 0.25 MG PO SCH (20:42)
[2017-07-13] MEDS: MELATONIN 3 MG TAB PO SCH (20:42)
[2017-07-13 21:08] VITALS: BP 137/75
[2017-07-14] MEDS: BUDESO/FORMOT 160/4.5 MCG 6 GM INH SCH ×2 (05:46→17:28)
[2017-07-14] MEDS: TIOTROPIUM BROM INH 18 MCG/CAP INH SCH (05:46)
[2017-07-14 05:55] VITALS: BP 122/63
[2017-07-14] MEDS: METOPROLOL SUCC XL 50 MG TABCR 50 MG TAB.ER.24H PO SCH (08:23)
[2017-07-14] MEDS: MULTIVITAMINS TAB PO SCH (08:23)
[2017-07-14] MEDS: OMEGA-3 500 MG CAP PO SCH (08:23)
[2017-07-14] MEDS: NYSTATIN 100,000 U/GM PWD 15GM TP SCH ×2 (08:23→21:00)
[2017-07-14] MEDS: ESCITALOPRAM OXALATE 10 MG TAB PO SCH (08:23)
[2017-07-14] MEDS: DULoxetine HCL 30 MG CAPCR PO SCH ×2 (08:23→14:07)
[2017-07-14] MEDS: FAMOTIDINE 20 MG TAB PO SCH (08:23)
[2017-07-14] MEDS: CHOLECALCIFEROL 1000 UNIT TAB PO SCH (08:23)
--- NOTE | 2017-07-14 08:36 | BHS Progress Note ---
BHS - Subjective Progress Notes Subjective Patient remains very polite and cooperative on the unit, once again, as on previous admissions, appears to be taking an active role in her treatment. Patient seems to enjoy socializing on the unit, and denies any concerns today. Patient states her mood is good, and is quick to engage with staff, and desires to be a part of happenings on the unit. No other concerns. Will continue to work with court to instill an outpatient commitment, in this patient with chronic returning sporadic suicidal behaviors. Suicidal Ideation: None Homicidal Ideation: None S - Objective Physical Exam Vital Signs Vital Signs Date Time Temp Pulse Resp B/P (MAP) Pulse Ox O2 Delivery O2 Flow Rate FiO2 07/14/17 05:55 97.7 60 15 122/63 (82) CPAP 2.0 07/13/17 21:08 91 07/10/17 21:20 93.0 Hematology Test 07/07/17 00:00 07/07/17 13:40 Urine HCG, Qualitative Negative (NEGATIVE) Valproic Acid (Depakene) Level 14.9 ug/ml Chemistry Test 07/07/17 00:00 07/07/17 13:40 Urine HCG, Qualitative Negative (NEGATIVE) Valproic Acid (Depakene) Level 14.9 ug/ml Toxicology Test 07/07/17 13:40 Valproic Acid (Depakene) Level 14.9 ug/ml Urinalysis Test 07/07/17 00:00 Urine HCG, Qualitative Negative (NEGATIVE) Muscle Strength and Tone: WNL Gait and Station: Steady [facility] Medications Reviewed: Side Effects, Benefits of Medication, Risks Allergies Reviewed: Yes Mental Status Exam General Appearance: Casual, Well Groomed, Good Eye Contact, Cooperative, Polite , Good Interaction, No Unkept, No Tearful, No Psychomotor Agitation, No Psychomotor Retardation, No Bizarre Mannerisms, No Tics Speech: Clear, Spontaneous, Normal Rate, Normal Rhythm, Normal Volume, Normal Tone, No Delayed, No Slurred, No Garbled, No Rambling, No Inappropriate Mood: Euthymic Affect: Full and Appropriate, Calm, No Sad, No Withdrawn, No Tearful, No Anxious, No Agitated Thought Process: Organized, Logical, Goal Directed, No Loose Associations, No Flight of Ideas Thought Content: Suicidal Ideation (none today), No Homicidal Ideation, No Delusions, No Auditory Halllucinations, No Visual Hallucinations, No Thought Broadcasting, No Ideas of Reference, No Obsessions, No Compulsions Sensorium: Clear Cognition: Alert & Oriented-Person, Alert & Oriented-Place, Alert & Oriented- Time, Pclfw-Dkyyxdcd-Zzshaqdwy Memory: Immediate, Recent, Remote Intelligence: Average Insight Judgment: Poor (regression to sick role behavior continues in this patient. ) [facility] Assessment and Plan Lfvw-ee-Yiti Encounter Date: Jul 14, 2017 Pqdc-ph-Cqfe Encounter Time: 08:[address] [facility] Plan: Necessary Precautions, Individual/Group Therapy, Admin/Titrate Meds, Educate Patient Tobacco Medications: Started Multpiple Antipsychotics Used: No Problems: (1) Persistent depressive disorder Status: Chronic (2) Somatic symptom disorder Status: Chronic (3) Adjustment disorder with depressed mood Optional Permanent Comment: recent financial stressors. Last Edited By: Alexis Monet on Jul 09, 2017 12:04 Status: Acute Condition 1. No medication changes. 2. solidify discharge plans to intermediate in [place]. ALEXIS MONET MD Jul 14, 2017 08:36
[2017-07-14 13:00] VITALS: BP 121/74
[2017-07-14] MEDS: MELATONIN 3 MG TAB PO SCH (21:15)
[2017-07-14] MEDS: PRAMIPEXOLE DIHYDROCHL 0.25 MG PO SCH (21:15)
[2017-07-14 21:26] VITALS: BP 121/63
[2017-07-15] MEDS: TIOTROPIUM BROM INH 18 MCG/CAP INH SCH (05:30)
[2017-07-15] MEDS: BUDESO/FORMOT 160/4.5 MCG 6 GM INH SCH ×3 (05:30→22:09)
[2017-07-15 05:50] VITALS: BP 107/63
[2017-07-15] MEDS: NYSTATIN 100,000 U/GM PWD 15GM TP SCH ×2 (08:01→21:00)
[2017-07-15] MEDS: ESCITALOPRAM OXALATE 10 MG TAB PO SCH (08:08)
[2017-07-15] MEDS: CHOLECALCIFEROL 1000 UNIT TAB PO SCH (08:08)
[2017-07-15] MEDS: MULTIVITAMINS TAB PO SCH (08:08)
[2017-07-15] MEDS: METOPROLOL SUCC XL 50 MG TABCR 50 MG TAB.ER.24H PO SCH (08:08)
[2017-07-15] MEDS: OMEGA-3 500 MG CAP PO SCH (08:08)
[2017-07-15] MEDS: DULoxetine HCL 30 MG CAPCR PO SCH ×2 (08:08→14:05)
[2017-07-15] MEDS: FAMOTIDINE 20 MG TAB PO SCH (08:08)
--- NOTE | 2017-07-15 08:51 | BHS Progress Note ---
S - Subjective Progress Notes Subjective Patient remains stable and in good spirits on the unit. No para-suicidal verbalizations or expressions have been noted. Patient demonstrating taking an active role in her treatment while on the unit. No complaints of psychiatric or physical origin today, and patient was notably cooperative and able to participate in escorted walk off the unit with no difficulty. Patient is not in need of NC 02 during daytime hours. Will continue same medications and solidify discharge plans hopefully under an outpatient suspended commitment. Suicidal Ideation: None Homicidal Ideation: None [facility] - Objective Physical Exam Vital Signs Vital Signs Date Time Temp Pulse Resp B/P (MAP) Pulse Ox O2 Delivery O2 Flow Rate FiO2 07/15/17 05:50 97.9 55 16 107/63 (78) 98 CPAP 2.0 Muscle Strength and Tone: WNL Gait and Station: Steady [facility] Medications Reviewed: Side Effects, Benefits of Medication, Risks Allergies Reviewed: Yes Mental Status Exam General Appearance: Casual, Well Groomed, Good Eye Contact, Cooperative, Polite , Good Interaction, No Unkept, No Tearful, No Psychomotor Agitation, No Psychomotor Retardation, No Bizarre Mannerisms, No Tics Speech: Clear, Spontaneous, Normal Rate, Normal Rhythm, Normal Volume, Normal Tone, No Delayed, No Slurred, No Garbled, No Rambling, No Inappropriate Mood: Euthymic Affect: Full and Appropriate, Calm, No Sad, No Withdrawn, No Tearful, No Anxious, No Agitated Thought Process: Organized, Logical, Goal Directed, No Loose Associations, No Flight of Ideas Thought Content: Suicidal Ideation (none today), No Homicidal Ideation, No Delusions, No Auditory Halllucinations, No Visual Hallucinations, No Thought Broadcasting, No Ideas of Reference, No Obsessions, No Compulsions Sensorium: Clear Cognition: Alert & Oriented-Person, Alert & Oriented-Place, Alert & Oriented- Time, Cvzlp-Saotkckt-Hbhkaovyi Memory: Immediate, Recent, Remote Intelligence: Average Insight Judgment: Poor (regression to sick role behavior continues in this patient. ) [facility] Assessment and Plan Yenw-lb-Axdb Encounter Date: Jul 15, 2017 Iird-ku-Bpcz Encounter Time: 08:40 [facility] Plan: Necessary Precautions, Individual/Group Therapy, Admin/Titrate Meds, Educate Patient Tobacco Medications: Started Multpiple Antipsychotics Used: No Problems: (1) Persistent depressive disorder Status: Chronic (2) Somatic symptom disorder Status: Chronic (3) Adjustment disorder with depressed mood Optional Permanent Comment: recent financial stressors. Last Edited By: Alexis Monet on Jul 09, 2017 12:04 Status: Acute Condition 1. solidify discharge plans to [place] crisis bed, with eventual plan to enter [facility] home under a suspended outpatient commitment. ALEXIS MONET MD Jul 15, 2017 08:51
[2017-07-15] MEDS ORDERED: MELA3TAB31 PO (10:09)
[2017-07-15] MEDS ORDERED: IPR14R INH (10:14)
[2017-07-15] MEDS ORDERED: NIC10R INH (12:08)
[2017-07-15] MEDS ORDERED: NICOTROL CARTRIDGE PO (12:09)
[2017-07-15 14:15] VITALS: BP 131/76
--- NOTE | 2017-07-15 20:20 | BHS - Psychiatric Evaluation ---
Title 25 Evaluation Hearing Report: 110 Date of Report: Jul 15, 2017 Examiner: Connie Mccoy M.S., L.P.C. Patient Detained By: Physician, Therapist (Rose Marie Negron M.S., L.A.T., L.P.C.) 24hr Mental Health Eval By: Connie Mccoy L.P.C. & Riley Avilez M.D. Date Patient Detained: Jul 07, 2017 Time Patient Detained: 10:00 Date Longterm Expires: Jul 19, 2017 Time Longterm Expires: 10:00 Legal Status: Police Hold: No Legal Status: Relationship: Single Legal Status: Residence: [place] Resident, [place] Resident Referral Source: Professional: S therapist, Rose Marie Negron Assessment Data Provided By: Patient, Therapist Chief Complaint: Patient, Natividad Loaiza, has had eight (8) [facility] hospitalizations in the last year related to patient feeling unstable, unsafe, and expressing suicidal behaviors, including 2 overdoses. Patient has outpatient support that does not ameliorate her related symptoms. Patient requires a safe and structured setting to prevent decompensation. HPI/ROS: Patient, Natividad Loaiza, reported she had been experiencing suicidal ideation all week. She also had to "put her sick cat down this week."Went to bed with ideation about dying and woke up in a different room she says, and discovered an empty Cymbalta bottle (believing she ingested the medication in an overdose). Reliability of Pt-Evidenced By Patient is mostly reliable, at times can inflate symptomatology to support medical care than is medically indicated. This is related to Somatic Symptom Disorder. Current Dangerous Risk Assess: Current Suicide Ideation (Patient denies current suicidality, but says this morning she was suicidal related to broken phone, overwhelming finances, and loss of pet cat.), Protective Factors (Feels safe in clinical settings.) Current Risk Summary: Patient, Natividad Loaiza has a history of suicidal ideation and suicidal behaviors indicating a high severity related to patient's expressed wish, to end her life. The frequency and severity of her suicidal gestures are escalating, and requiring high levels of clinical and safety measures each occasion. PatientNatividad has had eight (8) BHS hospitalizations in the last year related to patient feeling unstable, unsafe, and expressing suicidal behaviors, including 2 overdoses. Patient has outpatient support that does not ameliorate her related symptoms. Patient requires a safe and structured setting to prevent decompensation. Patient having intense suicidal and self injury episodes despite high and frequent outpatient support. It seems patient outpatient care is not sufficient to maintain patient consistent safety. Past Dangerous Risk Assess: Suicide Ideation-last 6mo, Suicide Attempts-last 6mo BHS - Exam Physical Exam Vital Signs Vital Signs 07/15/17 14:15 Temp 98.4 Pulse 65 Resp 16 B/P (MAP) 131/76 (94) Pulse Ox 94 O2 Delivery Nasal Cannula O2 Flow Rate 2.0 Mental Status Exam General Appearance: Casual, Well Groomed, Good Eye Contact, Cooperative, Polite , Good Interaction, No Unkept, No Tearful, No Psychomotor Agitation, No Psychomotor Retardation, No Bizarre Mannerisms, No Tics Speech: Clear, Spontaneous, Normal Rate, Normal Rhythm, Normal Volume, Normal Tone, No Delayed, No Slurred, No Garbled, No Rambling, No Inappropriate Mood: Euthymic Affect: Full and Appropriate, Calm, No Sad, No Withdrawn, No Tearful, No Anxious, No Agitated Thought Process: Organized, Logical, Goal Directed, No Loose Associations, No Flight of Ideas Thought Content: Suicidal Ideation (Patient denies current suicidality, but says she was suicidal before overdosing related to abroken phone, overwhelming finances, and loss of pet cat.)), No Homicidal Ideation, No Delusions, No Auditory Halllucinations, No Visual Hallucinations, No Thought Broadcasting, No Ideas of Reference, Obsessions, No Compulsions Sensorium: Clear Cognition: Alert & Oriented-Person, Alert & Oriented-Place, Alert & Oriented- Time, Mxxlv-Zbzqmxtd-Ovvyaybpd Memory: Immediate, Recent, Remote Intelligence: Average Insight Judgment: Poor (Regression to sick role behavior continues in this patient.) Sleep: Normal Title 25 History Psychiatric History: Patient, Natividad Loaiza, has had multiple inpatient psychiatric hospitalizations , dating back to March 2015. Her last psychiatric hospitalization was March 01, 2017. Her initial presentation to the emergency room in March occurred when her job hours were cut back and she was also undergoing some family conflict. She sees her therapist, Filomena, at [facility], one time weekly, as well as Ghislaine Puga for medications. Patient sees Dr. Trevino twice a month with encouragement to see this provider in place of multiple Emergency Room visits. Patient has engaged at times in parasuicidal behaviors in the past. At times, she has overwhelming emotions such as rage or sadness, and asked to be brought to [facility] via Law Enforcement. Patient was in a [facility] setting in [place], [place] after 7 psychiatric hospitalizations in 2016. She reports liking this setting, and says it met her needs. Family Psychiatric Hx: Per record review, notable for a brother with significant Autism Spectrum Disorder. Both of her parents suffered from Alcohol Use Disorder. Both parents are now . Social History: Per record review, patient was born in [place], [place] and raised there. Her parents were at the time of her and remained , and now both are . She has never been in the . She has never , has no children or significant other. Patient has one full brother, one half- brother and one full sister. She reports a good relationship with them. 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 She does receive current Social Security Disability and lives independently in her own trailer. She graduated from high school in [place], [place], attended one year of college in [place]. She denies history of physical, emotional or sexual abuse. Previous Detentions: Most recent nursing home was January 28, 2017. Prior Hospitalizations: Prior Hospitalizations at [facility]: April 01, 2015 December 03, 2016 December 15, 2016 December 25, 2016 January 09, 2017 January 28, 2017 February 13, 2017 March 01, 2017 Prior Outpatient Treatment: Patient has krysta Butt at [facility], Dr. Trevino, and Ghislaine Puga. Drug & Alcohol Use: Patient denies use of alcohol. She tends to avoid alcohol related to her parents suffering from alcoholism. She denies history of illicit drug use now or in the past. She has smoked cannabis in the past, but denies current use. She is a tobacco smoker, smoking five to six cigarettes per day. Current Living Situation: Patient lives alone, [address] in her own trailer, but is several months behind in payments on this trailer. Patient has pets. Patient says at times she has very limited money for gas and phone. Current Support System: Patient has a brother who lives in town. Patient says brother has become frustrated with her, and will not transport her to an inpatient residential care setting at this time. Employment Issues: Patient is not currently working. She receives disability. 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 Financial Issues: Patient receives disabilities [employer]. Says she is in financial despair. Patient Strengths: Patient is historically congenial, enjoys interaction, and laughs often. She is quick to encourage others, and enjoys her pets and going to the dog park often. Current Medical Data: Patient medical maladies are numerous and likely comprise Somatization Disorder. 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 Relevant Medications: Cymbalta and Lexapro Assessment and Plan Course of Care: Course of care will be consistent with patient who is detained because of suicidal behaviors. A stabilizing environment will be provided and tailored to patient's individual needs. Diagnostic Impressions: Somatic symptom disorder. Persistent depressive disorder. Chronic obstructive pulmonary disease. Obstructive sleep apnea. Maladaptive coping mechanisms. Assessment and Plan: Necessary precautions will be implemented. Individual and group therapy will be provided. Medications will be administered, titrated accordingly. Therapy to focus on resolution of her focus on physical and psychological symptoms and the sick role. Transition plan with emphasis on 3-6 month stay at [facility] has been established, and surrounding details, such as an interim crisis stabilization bed have been addressed. Patient hopes for a directed outpatient agreement and agrees to work with the [facility] [facility]. Risk Formulation: The patient "evidences a substantial probability of physical harm to self as manifested by evidence of recent threats of/or attempts at suicide or serious bodily harm" as evidenced by: PatientNatividad has a history of suicidal ideation and suicidal behaviors indicating a high severity related to patient's expressed wish, to end her life. The frequency and severity of her suicidal gestures are escalating, and requiring higher levels of clinical and safety measures each occasion. PatientNatividad has had eight (8) [facility] hospitalizations in the last year related to patient feeling unstable, unsafe, and expressing suicidal behaviors, including 2 overdoses. Patient has outpatient support that does not ameliorate her related symptoms. Patient requires a safe and structured setting to prevent decompensation. Patient having intense suicidal and self injury episodes despite high and frequent outpatient support. Patient response to stressors is at times a severe, with a risk to her life via suicide. Patient lives alone and reports profound isolation, financial despair, and loneliness contributing to her emotional fragility. Recommendations of S Team: It is therefore recommended by the Behavioral Health Services Team: That the patient be committed to the [facility] for further evaluation and stabilization as the most intensive intervention. A lessor restrictive environment (LRE) is indicated by patient current willingness to work with [facility] program, and patient being accepted at [facility] and [facility]. This LRE is appropriate for patient's current status. This plan is outlined below and has met the approval of the Treatment Team: Patient is scheduled for an 8:00 outpatient appointment with counselorSneha at [facility] (07/16/2017). Later that same day and also on Thursday, she has several hours of case management services scheduled for at [facility]. On Thursday07/18/2017, her plan is to drive herself to [facility] Treatment/ Crisis Stabilization center in [place], where she has been accepted. She agrees to contact Audelia Piper/Marine Diesel [employer]ic by phone after her arrival. [facility] will serve as interim treatment until a bed opens at [facility] in [place], [place]. Patient has been accepted at [facility], but there is no current bed opening. Also, patient did quite well there earlier this year. [facility] has a 70-pol-[id number] stay, and if a bed does not open for patient at [facility] within 30 days, [facility] staff, [facility] staff and [facility] [employer] will coordinate a stay at [facility] in [place], until [facility] does have a bed open for patient . [facility] has been an appropriate placement for patient's stabilization in the recent past, and she is willing to go to this residential facility again for a 3-6 month stabilizing period of treatment. CONNIE MCCOY SHEET MANUFACTURING SUPERVISOR Jul 15, 2017 19:52
[2017-07-15 21:44] VITALS: BP 113/65
[2017-07-15] MEDS: MELATONIN 3 MG TAB PO SCH (22:08)
[2017-07-15] MEDS: PRAMIPEXOLE DIHYDROCHL 0.25 MG PO SCH (22:09)
[2017-07-16] MEDS: IBUPROFEN 200 MG TAB PO PRN (01:59)
[2017-07-16 04:26] VITALS: BP 111/73
[2017-07-16] MEDS: TIOTROPIUM BROM INH 18 MCG/CAP INH SCH (06:11)
[2017-07-16] MEDS: METOPROLOL SUCC XL 50 MG TABCR 50 MG TAB.ER.24H PO SCH (08:21)
[2017-07-16] MEDS: DULoxetine HCL 30 MG CAPCR PO SCH ×2 (08:21→13:39)
[2017-07-16] MEDS: MULTIVITAMINS TAB PO SCH (08:21)
[2017-07-16] MEDS: OMEGA-3 500 MG CAP PO SCH (08:21)
[2017-07-16] MEDS: ESCITALOPRAM OXALATE 10 MG TAB PO SCH (08:21)
[2017-07-16] MEDS: CHOLECALCIFEROL 1000 UNIT TAB PO SCH (08:21)
[2017-07-16] MEDS: hydrOXYzine PAMOATE 25 MG CAP PO PRN (08:23)
[2017-07-16] MEDS: NYSTATIN 100,000 U/GM PWD 15GM TP SCH (08:26)
[2017-07-16] MEDS: FAMOTIDINE 20 MG TAB PO SCH (08:26)
--- NOTE | 2017-07-16 10:40 | BHS Progress Note ---
[facility] - Subjective Progress Notes Subjective Patient cooperative today, working with staff from [place] and her professor of law today. Patient in good spirits, again seemingly indicating a understanding of her three year history of adopting the sick role and how to overcome it, through therapy. Will plan for discharge as soon as court documents can be signed regarding her outpatient commitment. Patient will discharge to [facility], and from there transfer into [facility]. No other concerns. Suicidal Ideation: None Homicidal Ideation: None [facility] - Objective Physical Exam Vital Signs Vital Signs Date Time Temp Pulse Resp B/P (MAP) Pulse Ox O2 Delivery O2 Flow Rate FiO2 07/16/17 04:26 98.5 73 16 111/73 (86) 87 Room Air 07/15/17 14:15 2.0 Hematology Test 07/07/17 00:00 07/07/17 13:40 07/14/17 14:07 Urine HCG, Qualitative Negative (NEGATIVE) Valproic Acid (Depakene) Level 14.9 ug/ml Chemistry Test 07/07/17 00:00 07/07/17 13:40 07/14/17 14:07 Urine HCG, Qualitative Negative (NEGATIVE) Valproic Acid (Depakene) Level 14.9 ug/ml Toxicology Test 07/07/17 13:40 Valproic Acid (Depakene) Level 14.9 ug/ml Urinalysis Test 07/07/17 00:00 Urine HCG, Qualitative Negative (NEGATIVE) Muscle Strength and Tone: WNL Gait and Station: Steady [facility] Medications Reviewed: Side Effects, Benefits of Medication, Risks Allergies Reviewed: Yes Mental Status Exam General Appearance: Casual, Well Groomed, Good Eye Contact, Cooperative, Polite , Good Interaction, No Unkept, No Tearful, No Psychomotor Agitation, No Psychomotor Retardation, No Bizarre Mannerisms, No Tics Speech: Clear, Spontaneous, Normal Rate, Normal Rhythm, Normal Volume, Normal Tone, No Delayed, No Slurred, No Garbled, No Rambling, No Inappropriate Mood: Euthymic Affect: Full and Appropriate, Calm, No Sad, No Withdrawn, No Tearful, No Anxious, No Agitated Thought Process: Organized, Logical, Goal Directed, No Loose Associations, No Flight of Ideas Thought Content: Suicidal Ideation (Patient denies current suicidality, but says she was suicidal before overdosing related to abroken phone, overwhelming finances, and loss of pet cat.)), No Homicidal Ideation, No Delusions, No Auditory Halllucinations, No Visual Hallucinations, No Thought Broadcasting, No Ideas of Reference, Obsessions, No Compulsions Sensorium: Clear Cognition: Alert & Oriented-Person, Alert & Oriented-Place, Alert & Oriented- Time, Adomh-Utlrtwug-Qsqjzdnez Memory: Immediate, Recent, Remote Intelligence: Average Insight Judgment: Poor (Regression to sick role behavior continues in this patient.) [facility] Assessment and Plan Yesd-jj-Ujdj Encounter Date: Jul 16, 2017 Iazp-rj-Utcs Encounter Time: 10:40 [facility] Plan: Necessary Precautions, Individual/Group Therapy, Admin/Titrate Meds, Educate Patient Tobacco Medications: Started Multpiple Antipsychotics Used: No Problems: (1) Persistent depressive disorder Status: Chronic (2) Somatic symptom disorder Status: Chronic (3) Adjustment disorder with depressed mood Optional Permanent Comment: recent financial stressors. Last Edited By: Alexis Monet on Jul 09, 2017 12:04 Status: Acute Condition 1. continue treatment. 2. plan for discharge. ALEXIS MONET MD Jul 16, 2017 10:40
[2017-07-16 12:48] VITALS: BP 119/63
--- NOTE | 2017-07-21 16:34 | DISCHARGE SUMMARY ---
This patient was seen on the morning of July 16, 2017 at approximately 1000 hours for note concerning this dictation. FINAL DIAGNOSES PER DSM-V Somatic symptom disorder. Rule out fictitious disorder with physical and psychological symptoms. Persisting depressive disorder. Social stressors, finances, employment. REASON FOR ADMISSION This is a very well-known 51-year-old female who notably had almost no psychiatric care nor physical ailments until around October of 2014. Patient then started presenting on multiple occasions to the emergency room with various physical concerns. This accelerated to hospital admissions and then to psychiatric admissions as well. Patient has had many. Patient seems to have adopted the sick role for reasons that are yet unknown. Patient has had multiple parasuicidal attempts, multiple admissions. Patient was admitted initially on July 06, 2017 to the intensive care unit, where she was monitored after presenting to the emergency room proclaiming that she had overdosed on Cymbalta, a medication prescribed to her. Patient was noted not to present with any clinical symptoms that would be suggestive of Cymbalta overdose such as tachycardia or hypertension. Patient was monitored overnight before being transferred to [facility] under an emergency detainment. Emergency detainment was based on patient's repeated failures at outpatient care. Patient has been in retirement as well which she left. Patient having again multiple parasuicidal/suicidal behaviors and attempts. Patient once again was very cooperative in a social setting, and patient was noted to interact very well with patients and other staff members. 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 Patient continued to do well on the unit. Cymbalta was slowly started at a lower dose. Patient has developed multiple allergies over the past three years as well. Some of these allergies seem to be fictitious in nature. Patient again did very well on the unit, sleep was good, appetite good, mood quickly improved. Patient denying any suicidal thoughts. Patient not having any parasuicidal behaviors on the unit. Work with legal system was done to ensure patient would return to [facility] in [place]. Upon discharge patient would be monitored closely with [facility] until she could enter retirement a few days after discharge. PHYSICAL EXAMINATION GENERAL: Please see emergency room note. Notable for a well-known 51-year-old female, obese. VITAL SIGNS: At the time of admission, temperature of 98.7, pulse 72, respiratory rate 16, blood pressure 142/83 and pulse oximetry 96 on 2L nasal cannula oxygen. At the time of discharge vital signs showed temperature 98.9, pulse 68, respiratory rate 16, blood pressure 119/73 and pulse oximetry 89 on room air. LABORATORY DATA screen was negative. PPD was negative as well. Upon admission CBC was unremarkable. CMP on July 07, 2017 notable for a BUN elevated at 20 with a creatinine of 1.0. TSH 1.88. Urinalysis unremarkable. Toxicology screen negative for substances of abuse, and a nondetectable serum alcohol level. MENTAL STATUS EXAMINATION AT THE TIME OF DISCHARGE GENERAL APPEARANCE, BEHAVIOR AND ATTITUDE: This is a polite, cooperative and friendly 51-year-old female, making good eye contact. No periods of tearfulness. No bizarre mannerisms or tics. No psychomotor retardation or activation. SPEECH: Within normal limits, regular rate, rhythm volume and tone. MOOD: Described as good. AFFECT: Full and bright THOUGHT PROCESSES: Logical, goal directed. Patient indicating a desire to return to [facility]. No loose associations or flight of ideas were detected. THOUGHT CONTENT: Free of auditory or visual hallucinations, ideas of reference , thought broadcastings, delusions, obsessions, compulsions. Patient adamantly denying suicidal or homicidal ideation. SENSORIUM: Clear. COGNITION: Alert and oriented to person, place, time and situation. MEMORY: Immediate, recent and remote estimated intact. INTELLIGENCE: Average based on interview and previous knowledge of this patient. INSIGHT AND JUDGMENT: Considered grossly intact and appropriate for close monitoring on an outpatient basis and entrance into retirement. RESULTS OF TESTING IMAGING: None. LABORATORY DATA: See above. CONSULTATIONS: Patient did have Nutrition consultation while on the unit to help her manage weight, and patient was cooperative with recommendations. TREATMENT Patient received medications, participated in individual and group therapy. HOSPITAL COURSE Once again, this very well-known patient interacted very well upon arrival to the unit after a parasuicidal/suicide attempt. Patient was restarted on Cymbalta and continued to do well. CONDITION OF PATIENT ON DISCHARGE Stable. Considered a minimal risk to herself or others and appropriate for outpatient management. DISPOSITION Patient was discharged to home on an outpatient commitment. [facility] would monitor patient, as she was to enter [facility] within a few days. Patient would follow up there for continued medication management and therapy, was given the crisis line should symptoms return. DISCHARGE MEDICATIONS 1. Cymbalta 30 mg at 0900 hours and 1400 hours. 2. Fish oil 1000 mg over the counter daily. 3. Lexapro 10 mg daily. 4. Melatonin 3 mg at bedtime over the counter. 5. Mirapex 0.5 mg at bedtime. 6. Nystop as directed over the counter. 7. Pepcid over the counter. 8. Spiriva inhaler. 9. Symbicort inhaler. 10. Multivitamin with minerals. 11. Toprol XL 50 mg daily. 12. Vitamin D3 1000 international units daily. 13. Atrovent 0.5 mg nebulizer. 14. Motrin 400 mg every eight hours p.r.n. for pain, over the counter. 15. Patient would continue nicotine replacement over the counter. 16. ProAir HFA inhaler every four to six hours p.r.n. as needed. 17. Vistaril 25 mg every eight hours p.r.n. for anxiety. Patient would stop Depakote prescribed by outpatient provider due to weight concerns and ineffectiveness in this patient as a mood stabilizer. Risks, benefits and alternatives of the above discharge plan were discussed. Informed consent was given to proceed with above discharge plan by this patient, [facility], [facility], and legal system remains involved, patient is on an outpatient commitment. ANIBAL
== END 2017-07-16 16:19 | disposition home or self-care (01) | DRG 882 ==
LOC: BHS 11:30
PROVIDERS: ADMIT Psychiatry & Neurology Psychiatry; ATTEND Psychiatry & Neurology Psychiatry
PROC: 5A09357 Assistance with Respiratory Ventilation, Less than 24 Consecutive Hours, Continuous Positive Airway Pressure (ICD-10-PCS; principal; 2017-07-07)
DX: F45.0 Somatization disorder (principal); R45.851 Suicidal ideations; Z68.42 Body mass index [BMI] 45.0-49.9, adult; F34.1 Dysthymic disorder; F43.21 Adjustment disorder with depressed mood; K59.00 Constipation, unspecified; F68.13 Factitious disorder imposed on self, with combined psychological and physical signs and symptoms; T43.212A Poisoning by selective serotonin and norepinephrine reuptake inhibitors, intentional self-harm, initial encounter; E66.9 Obesity, unspecified; J44.9 Chronic obstructive pulmonary disease, unspecified; G47.33 Obstructive sleep apnea (adult) (pediatric); F17.210 Nicotine dependence, cigarettes, uncomplicated; Z56.0 Unemployment, unspecified; Z59.6 Low income; Z81.1 Family history of alcohol abuse and dependence; Z99.81 Dependence on supplemental oxygen; Z89.022 Acquired absence of left finger(s); Z81.8 Family history of other mental and behavioral disorders
CPT/HCPCS: 36415; 80164; 80305; 80320; 80329; 81001; 81025; 82040; 82247; 82310; 82374; 82435; 82565; 82947; 83735; 84075; 84132; 84155; 84295; 84443; 84450; 84460; 84520; 85025; 86580; 90853; 93005; 94640; 94660; 96361; 96365; 99285; G0378; J2405; J3475; J3535; J7030; Q0177

== ENCOUNTER 2017-12-07 18:36 | Emergency (ER) | payer MEDICARE, BC ==
[2015-06-25 12:47] VITALS: Wt 127.0 kg
[~2017-12-07 18:36] MED LIST changes: +ALBU2.5V36 INH; -CLON-298 PO; +CLON-331 PO; -DIVA-6 PO; +DIVA500T47 PO; +ESCI20TA8 PO; +FAMO-67 PO; +IPR14R INH; +IPRA3AMP10 IH; -IPRA3AMP21 IH; +MELA2.5T PO; +MELA3TAB31 PO; +NIC10R INH; +NICOTROL CARTRIDGE PO; +PRAM1TAB22 PO
--- NOTE | 2017-12-07 18:45 | ER Report ---
History and Physical Time Seen By MD: 18:45 Hx. of Stated Complaint: COUGH HPI/ROS CHIEF COMPLAINT: cough, short of breath HISTORY OF PRESENT ILLNESS: This is a 52 year old female. She has cough for several days, worsening. Short of breath. Non-productive. No fever or chills. She has been using her breathing treatments. Does have some post-tussive emesis, but no other nausea or vomiting. No chest pain, but feels tight at times. Allergies: Coded Allergies: aripiprazole (Verified Allergy, Intermediate, RASH, 12/07/17) lithium (Verified Allergy, Intermediate, RASH, 12/07/17) lurasidone (Verified Allergy, Intermediate, 12/07/17) quetiapine (Verified Allergy, Intermediate, DIZZY, 12/07/17) DIzzy varenicline (Verified Allergy, Intermediate, SWELLING, 12/07/17) ciprofloxacin (Verified Allergy, Mild, N/V, 12/07/17) sulfamethoxazole (Verified Allergy, Mild, HIVES, 12/07/17) topiramate (Verified Allergy, Mild, UPSET STOMACH, 12/07/17) Upset stomach trimethoprim (Verified Allergy, Mild, HIVES, 12/07/17) haloperidol (Verified Adverse Reaction, Severe, DYSTONIC REACTION, 12/07/17) propofol (Verified Adverse Reaction, Severe, HALLUCINATIONS, 12/07/17) PT STATES "I HEARD VOICES TELLING ME TO KILL MYSELF THE NIGHT AFTER I HAD A COLONOSCOPY" amoxicillin (Verified Adverse Reaction, Intermediate, Pruritus , 12/07/17) adhesive tape (Verified Adverse Reaction, Mild, RASH, 12/07/17) fluticasone (Verified Adverse Reaction, Mild, THRUSH, 12/07/17) salmeterol (Verified Adverse Reaction, Mild, THRUSH, 12/07/17) Home Meds Active Scripts Guaifenesin/Codeine (GUAIFENESIN-CODEINE SYRUP) 5 Ml Syrp, 5 ML PO Q6H PRN for COUGH, #120 ML 0 Refills Prov:GARY RODRIGUEZ MD 12/07/17 Prednisone (PREDNISONE) 20 Mg Tablet, 60 MG PO QDAY, #12 TAB 0 Refills Prov:GARY RODRIGUEZ MD 12/07/17 Metoprolol Succinate (METOPROLOL SUCCINATE) 50 Mg Tab.er.24h, 1 TAB PO QDAY, #30 TAB Prov:SKINNY EMMANUEL MD 06/10/17 Tiotropium [place] (SPIRIVA) 18 Mcg/Cap Inh, 2 PUFF INH DAILY, #1 INH 11 Refills Prov:SKINNY EMMANUEL MD 05/14/17 Nystatin (NYSTOP) 60 Gm Powder, 1 DONALD TP BID, #1 BOTTLE 0 Refills APPLY TO AFFECTED AREA TWICE A DAY Prov:SKINNY EMMANUEL MD 03/13/17 Reported Medications Budesonide/Formoterol Fumarate (SYMBICORT 80-4.5 MCG INHALER) 10.2 Gm Hfa.aer.ad, 10.2 GM IH BID 12/07/17 Bupropion Hcl (WELLBUTRIN SR) 150 Mg Tablet.er, 150 MG PO QDAY, TAB 11/11/17 Hydrochlorothiazide (HYDROCHLOROTHIAZIDE) 12.5 Mg Tablet, 1 TAB PO QDAY, TAB 11/11/17 Melatonin (MELATONIN) 2.5 Mg Tab.chew, 2.5 MG PO DAILY, TAB.CHEW 11/11/17 Escitalopram Oxalate (ESCITALOPRAM OXALATE) 20 Mg Tablet, 20 MG PO QDAY 11/11/17 Pramipexole Di-Hcl (MIRAPEX) 1 Mg Tablet, 1 MG PO DAILY 11/11/17 Famotidine (FAMOTIDINE) 20 Mg Tablet, 20 MG PO QDAY, TAB 11/11/17 [place]-3/Dha/Epa/Fish Oil (OMEGA-3 FISH OIL 1,000 MG SFGL) 1,000 Mg Capsule, 1000 MG PO BID, CAPSULE 07/06/17 Cholecalciferol (Vitamin D3) (VITAMIN D3) 1,000 Unit Tablet, 1000 UNIT PO QDAY, TAB 06/20/17 Ibuprofen (IBUPROFEN) 200 Mg Tablet, 2 TAB PO Q8H PRN for PAIN, TAB (MOTRIN): TAKE 400 MG EVERY 8 HRS NEEDED FOR PAIN. 02/03/17 Hydroxyzine Pamoate (HYDROXYZINE PAMOATE) 25 Mg Capsule, 25 TAB PO Q8H PRN for ANXIETY/INSOMNIA 01/27/17 Albuterol Sulfate 90 Mcg/Act (PROAIR HFA 90 MCG/ACT) 8.5 Gm Hfa.aer.ad, 2 PUFF IH Q4-6H PRN for DYSPNEA, INHALER 10/24/17 Multivitamin (MULTIVITAMINS) 1 Each Capsule, 1 EACH PO DAILY, CAPSULE 12/08/16 Discontinued Scripts Methylprednisolone (METHYLPREDNISOLONE) 4 Mg Tab.ds.pk, 4 MG PO DIRECTED, #1 TAB Prov:SKINNY EMMANUEL MD 11/11/17 Azithromycin (ZITHROMAX) 250 Mg Tablet, 2 TAB PO ONCE, #6 TAB Take 2 tabs now and then 1 daily for 4 days Prov:SKINNY EMMANUEL MD 11/11/17 Budesonide/Formoterol Fumarate (SYMBICORT 160-4.5 MCG INHALER) 10.2 Gm Inh, 2 PUFF INH BID, #1 INH 11 Refills Prov:SKINNY EMMANUEL MD 06/08/17 Past Medical/Surgical History COPD, hypertension, headaches, GERD, constipation, arthritis, depression/anxiety. Surgeries include cholecystectomy, tonsillectomy, back and o ther orthopedic surgeries including left shoulder, left hand, left little finger amputation Reviewed Nurses Notes: Yes Hx Smoking: Yes Smoking Status: Current: Every Day Smoker Exposure to Second Hand Smoke?: Yes Hx Substance Use Disorder: Yes Hx Alcohol Use: Yes Constitutional Vital Sign - Last 24 Hours 12/07/17 12/07/17 12/07/17 12/07/17 18:42 18:42 18:50 18:50 Temp 98.8 Pulse 62 67 58 Resp 24 16 B/P (MAP) 137/86 (103) Pulse Ox 94 96 98 O2 Delivery Nasal Cannula Nasal Cannula Nasal Cannula O2 Flow Rate 3 4.0 12/07/17 12/07/17 12/07/17 12/07/17 18:52 19:00 19:06 19:30 Pulse 62 Resp 27 B/P (MAP) 121/76 (91) 127/70 (89) Pulse Ox 98 O2 Delivery Nasal Cannula O2 Flow Rate 3.0 3 12/07/17 12/07/17 12/07/17 12/07/17 19:36 20:00 20:11 20:16 Pulse 63 64 66 Resp 18 21 20 B/P (MAP) 119/69 (86) Pulse Ox 97 95 95 O2 Delivery Nasal Cannula Nasal Cannula Nasal Cannula O2 Flow Rate 3 3 3 12/07/17 12/07/17 12/07/17 12/07/17 20:30 20:46 20:51 21:00 Pulse 65 65 Resp 18 19 B/P (MAP) 135/77 (96) 134/85 (101) Pulse Ox 97 96 O2 Delivery Nasal Cannula Nasal Cannula O2 Flow Rate 3 3 Physical Exam General Appearance: The patient is alert. No acute distress. Eyes: Pupils are equal, round. No pallor, injection or icterus. ENT: Mucous membranes are moist. Normal oral mucosa. Posterior oropharynx with some erythema and post nasal drainage. Some mucous in nasal passages, but no erythema. Normal tympanic membranes and canals. Neck: Supple and non tender. Respiratory: Lungs with some wheezing and rhonchi, but no rales, poor air movement. There are no retractions or accessory muscle use. Cardiovascular: Regular rate and rhythm. No murmurs, gallops or rubs. Gastrointestinal: Abdomen is soft and non tender. Nondistended Neurological: Alert and oriented x3. Skin: Warm and dry. No rashes. DIFFERENTIAL DIAGNOSIS: After history and physical exam, differential diagnosis was considered for cough and shortness of breath, with history of COPD, COPD exacerbation, likely viral process Medical Decision Making Data Points Result Diagram: 12/07/17192212/07/173 Laboratory Hematology Test 12/07/17 19:23 Red Blood Count 4.15 M/uL (4.17-5.56) Mean Corpuscular Volume 93.2 fL (80.0-96.0) Mean Corpuscular Hemoglobin 32.3 pg (26.0-33.0) Mean Corpuscular Hemoglobin Concent 34.7 g/dL (32.0-36.0) Red Cell Distribution Width 13.6 % (11.5-14.5) Mean Platelet Volume 9.6 fL (7.2-11.1) Neutrophils (%) (Auto) 63.1 % (39.4-72.5) Lymphocytes (%) (Auto) 26.5 % (17.6-49.6) Monocytes (%) (Auto) 8.1 % (4.1-12.4) Eosinophils (%) (Auto) 1.4 % (0.4-6.7) Basophils (%) (Auto) 0.9 % (0.3-1.4) Nucleated RBC Relative Count (auto) 0.0 /100WBC Neutrophils # (Auto) 3.6 K/uL (2.0-7.4) Lymphocytes # (Auto) 1.5 K/uL (1.3-3.6) Monocytes # (Auto) 0.5 K/uL (0.3-1.0) Eosinophils # (Auto) 0.1 K/uL (0.0-0.5) Basophils # (Auto) 0.1 K/uL (0.0-0.1) Nucleated RBC Absolute Count (auto) 0.00 K/uL Sodium Level 137 mmol/L (137-145) Potassium Level 3.7 mmol/L (3.5-5.0) Chloride Level 99 mmol/L (98-107) Carbon Dioxide Level 32 mmol/L (22-31) Blood Urea Nitrogen 16 mg/dl (7-18) Creatinine 0.90 mg/dl (0.52-1.04) Glomerular Filtration Rate Calc > 60.0 Random Glucose 91 mg/dl (75-110) Calcium Level 10.2 mg/dl (8.4-10.2) Total Bilirubin 0.2 mg/dl (0.2-1.3) Aspartate Amino Transf (AST/SGOT) 14 U/L (0-35) Alanine Aminotransferase (ALT/SGPT) 22 U/L (0-56) Alkaline Phosphatase 66 U/L (0-126) Total Protein 6.2 g/dl (6.3-8.2) Albumin 3.6 g/dl (3.5-5.0) Chemistry Test 12/07/17 19:23 White Blood Count 5.7 k/uL (4.5-11.0) Red Blood Count 4.15 M/uL (4.17-5.56) Hemoglobin 13.4 g/dL (12.0-16.0) Hematocrit 38.6 % (34.0-47.0) Mean Corpuscular Volume 93.2 fL (80.0-96.0) Mean Corpuscular Hemoglobin 32.3 pg (26.0-33.0) Mean Corpuscular Hemoglobin Concent 34.7 g/dL (32.0-36.0) Red Cell Distribution Width 13.6 % (11.5-14.5) Platelet Count 201 K/uL (150-450) Mean Platelet Volume 9.6 fL (7.2-11.1) Neutrophils (%) (Auto) 63.1 % (39.4-72.5) Lymphocytes (%) (Auto) 26.5 % (17.6-49.6) Monocytes (%) (Auto) 8.1 % (4.1-12.4) Eosinophils (%) (Auto) 1.4 % (0.4-6.7) Basophils (%) (Auto) 0.9 % (0.3-1.4) Nucleated RBC Relative Count (auto) 0.0 /100WBC Neutrophils # (Auto) 3.6 K/uL (2.0-7.4) Lymphocytes # (Auto) 1.5 K/uL (1.3-3.6) Monocytes # (Auto) 0.5 K/uL (0.3-1.0) Eosinophils # (Auto) 0.1 K/uL (0.0-0.5) Basophils # (Auto) 0.1 K/uL (0.0-0.1) Nucleated RBC Absolute Count (auto) 0.00 K/uL Glomerular Filtration Rate Calc > 60.0 Calcium Level 10.2 mg/dl (8.4-10.2) Total Bilirubin 0.2 mg/dl (0.2-1.3) Aspartate Amino Transf (AST/SGOT) 14 U/L (0-35) Alanine Aminotransferase (ALT/SGPT) 22 U/L (0-56) Alkaline Phosphatase 66 U/L (0-126) Total Protein 6.2 g/dl (6.3-8.2) Albumin 3.6 g/dl (3.5-5.0) EKG/Imaging Imaging 2 VIEWS CHEST INDICATION: Respiratory distress. Cough. COMPARISON: 06/20/2017 FINDINGS: The lungs are clear. No effusion or pneumothorax is seen. Heart size and mediastinal contours are normal. IMPRESSION: 1. No radiographic evidence of active disease. Report Dictated By: Gunner Cardona at 12/07/2017 8:10 PM ED Course/Re-evaluation Clinical Indication for ER IV: IV Access ED Course Some improvement with Solu-Medrol and albuterol treatments. X-ray negative. See instructions below Decision to Disposition Date: Dec 07, 2017 Decision to Disposition Time: 21:13 Depart Departure Latest Vital Signs Vital Signs Date Time Temp Pulse Resp B/P (MAP) Pulse Ox O2 Delivery O2 Flow Rate FiO2 12/07/17 21:00 134/85 (101) 12/07/17 20:51 65 19 96 Nasal Cannula 3 12/07/17 18:42 98.8 Core Temperature (Celsius): 37.23 Impression: Primary Impression: COPD (chronic obstructive pulmonary disease) Additional Impression: Upper respiratory infection Condition: Improved Disposition: HOME OR SELF-CARE Referrals: SKINNY EMMANUEL MD (PCP) New Scripts Guaifenesin/Codeine (GUAIFENESIN-CODEINE SYRUP) 5 Ml Syrp 5 ML PO Q6H PRN for COUGH, #120 ML 0 Refills Prov: GARY RODRIGUEZ MD 12/07/17 Prednisone (PREDNISONE) 20 Mg Tablet 60 MG PO QDAY, #12 TAB 0 Refills Prov: GARY RODRIGUEZ MD 12/07/17 Patient Instructions: Upper Respiratory Infection (ED) Additional Instructions: Take prednisone 20mg, three tablets once a day for 4 days. Take Guaifenesin with Codeine syrup, 1 teaspoon every 4 hours as needed for cough. Rest and increase fluids. Keep using your breathing treatments. Problem Qualifiers Primary Impression: COPD (chronic obstructive pulmonary disease) COPD type: COPD with acute exacerbation Qualified Codes: J44.1 - Chronic obstructive pulmonary disease with (acute) exacerbation Additional Impression: Upper respiratory infection URI type: unspecified viral URI Qualified Codes: J06.9 - Acute upper res piratory infection, unspecified GARY RODRIGUEZ MD Dec 07, 2017 18:45
[2017-12-07] MEDS ORDERED: methylPREDNIS SUCC 125 MG/2ML IVP ONE (18:50)
[2017-12-07] MEDS ORDERED: ALBUTEROL/IPRATROPIUM 3 ML NEB NEB ONE (18:50)
[2017-12-07] MEDS ORDERED: BUDE10.25 IH (18:50)
[2017-12-07 19:28] LABS: PLATELET COUNT, AUTOMATED 201 K/uL (150-450)
--- NOTE | 2017-12-07 20:16 | RADIOLOGY IMAGING REPORT ---
FACILITY: [facility] - [place] PATIENT NAME: Natividad Loaiza : 1965 MR: [id number] V: [id number] EXAM DATE: ORDERING PHYSICIAN: GARY RODRIGUEZ TECHNOLOGIST: Location: [facility] [place] Patient: Natividad Loaiza : 1965 Visit/Account:[id number] Date of Sevice: 12/07/2017 2 VIEWS CHEST INDICATION: Respiratory distress. Cough. COMPARISON: 06/20/2017 FINDINGS: The lungs are clear. No effusion or pneumothorax is seen. Heart size and mediastinal contours are nor mal. IMPRESSION: 1. No radiographic evidence of active disease. Report Dictated By: Gunner Cardona at 12/07/2017 8:10 PM Report E-Signed By: Gunner Cardona at 12/07/2017 8:12 PM [id number]
[2017-12-07 21:00] VITALS: BP 134/85
[2017-12-07] MEDS ORDERED: PRED20TA6 PO (21:14)
[2017-12-07] MEDS ORDERED: ROBC PO (21:14)
[2017-12-07] MEDS ORDERED: predniSONE 20 MG TAB PO ONE (21:15)
[2017-12-07] MEDS ORDERED: guaiFENesin/CODEINE 5 ML UDBTL PO ONE (21:15)
== END 2017-12-07 21:29 | disposition home or self-care (01) ==
LOC: ER 18:56
DX: J44.1 Chronic obstructive pulmonary disease with (acute) exacerbation (principal); J06.9 Acute upper respiratory infection, unspecified; F17.210 Nicotine dependence, cigarettes, uncomplicated
CPT/HCPCS: 36415; 71046; 85025; 94640; 96374; 99283; A9270; J2930; J7512; J7620; 82040; 82247; 82310; 82374; 82435; 82565; 82947; 84075; 84132; 84155; 84295; 84450; 84460; 84520

== ENCOUNTER 2017-12-27 22:08 | Emergency (ER) | payer MEDICARE, BC ==
[2015-06-25 12:47] VITALS: Wt 125.6 kg
[~2017-12-27 22:08] MED LIST changes: +AMLO-111 PO; -AMLO-96 PO; +BUDE10.25 IH
[2017-12-27] MEDS ORDERED: AMOX-556 PO (22:24)
[2017-12-27] MEDS ORDERED: ONDANSETRON 4 MG/2 ML VIAL IVP ONE (22:30)
[2017-12-27] MEDS ORDERED: NS(*) 0.9% 1000 ML BAG 1,000 ML IV ONE (22:30)
[2017-12-27 22:37] LABS: PLATELET COUNT, AUTOMATED 215 K/uL (150-450)
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
[2017-12-27] MEDS ORDERED: IOPAMIDOL 76% 100 ML INFUS BTL 100 ML ONE (23:15)
--- NOTE | 2017-12-27 23:19 | RADIOLOGY IMAGING REPORT ---
FACILITY: [facility] PATIENT NAME: Natividad Loaiza : 1965 MR: [id number] V: [id number] EXAM DATE: ORDERING PHYSICIAN: FRAN VALADEZ TECHNOLOGIST: Location: [facility] - [place] Patient: Natividad Loaiza : 1965 Visit/Account:[id number] Date of Sevice: 12/27/2017 PORTABLE CHEST: Indication: Left chest pain. Technique: A single frontal film was obtained. Comparison: 12/13/2017 Skeletal and soft tissue structures: Intact and unchanged. Heart and mediastinum: Within normal limits. Lung fountain: Well-expanded and clear. No focal opacities. Pleural spaces: Unremarkable. Impression: No acute process or significant change. Report Dictated By: Eduardo Guerra MD at 12/27/2017 11:12 PM Report E-Signed By: Eduardo Guerra MD at 12/27/2017 11:15 PM WSN:[id number]
--- NOTE | 2017-12-28 00:20 | RADIOLOGY IMAGING REPORT ---
FACILITY: [facility] PATIENT NAME: Natividad Loaiza : 1965 MR: [id number] V: [id number] EXAM DATE: ORDERING PHYSICIAN: FRAN VALADEZ TECHNOLOGIST: Location: [facility] - [place] Patient: Natividad Loaiza : 1965 Visit/Account:[id number] Date of Sevice: 12/27/2017 CT of the abdomen and pelvis with contrast: Indication: Left lower quadrant pain. Technique: Helical CT was performed through the abdomen and pelvis following IV contrast enhancement with 100 cc of Isovue-370. Multiplanar reconstructions are reviewed. One of the following dose optimization techniques was utilized in the performance of this exam: Autom ated exposure control; adjustment of the mA and/or kV according to the patient's size; or use of an i terative reconstruction technique. Specific details can be referenced in the facility's radiology CT exam operational policy. Comparison: None. Lower lung fountain: No parenchymal or pleural abnormality is identified. Liver: Normal in size, shape, and density. There is uniform enhancement of the venous structures. Gallbladder/biliary tree: There are multiple surgical clips related to prior cholecystectomy. The chelsie e ducts are normal in caliber. Pancreas: Normal in size, shape, and density. Spleen: Normal in size, shape, and density. Adrenal glands: Within normal limits. Kidneys/urinary bladder: The kidneys are normal in size, shape, and density. There are no signs of ur inary tract calculus or obstruction. The bladder is unremarkable, as visualized. Intestinal structures: Unremarkable, as visualized. There are no signs of obstruction or acute inflam matory changes. In particular, there are no signs of diverticulitis or appendicitis. Pelvis: The uterus appears mildly enlarged and heterogeneous in density, suggesting the presence of l eiomyomas. No focal calcification or discrete soft tissue mass is identified. The adnexal structures appear unremarkable. There is no evidence of fluid or inflammatory changes in the pelvis. Aorta and vascular structures: There is minimal atherosclerotic calcification in the aorta and iliac arteries. There are no signs of aneurysm. Ascites or fluid collections: None seen. Skeletal structures: There is degenerative disc disease in the lower thoracic spine and lumbar spine. No acute skeletal deformity is identified. Impression: No acute process is identified in the abdomen or pelvis. The uterus appears mildly enlarg ed and heterogeneous in density, suggesting the presence of leiomyomas. Report Dictated By: Eduardo Guerra MD at 12/27/2017 11:58 PM Report E-Signed By: Eduardo Guerra MD at 12/28/2017 12:15 AM WSN:[id number]
[2017-12-28] MEDS ORDERED: LIDOCAINE 2% VISC SLN 15ML UDC PO ONE (00:25)
[2017-12-28] MEDS ORDERED: MAG HYD/AL HYD/SIMETH 30ML UDC PO ONE (00:25)
[2017-12-28 00:30] VITALS: BP 114/66
== END 2017-12-28 00:50 | disposition home or self-care (01) ==
LOC: ER 22:19
DX: R10.84 Generalized abdominal pain (principal)
CPT/HCPCS: 71045; 74177; 81001; 81025; 83690; 85025; 96361; 96374; 99284; A9270; J2405; J7030; Q9967; 82040; 82247; 82310; 82374; 82435; 82565; 82947; 84075; 84132; 84155; 84295; 84450; 84460; 84520

== ENCOUNTER 2018-01-09 20:20 | Emergency (ER) | payer MEDICARE, BC ==
[2015-06-25 12:47] VITALS: Wt 124.3 kg
[~2018-01-09 20:20] MED LIST changes: +AMOX-556 PO
--- NOTE | 2018-01-09 20:30 | ER Report ---
History and Physical Time Seen By MD: 20:27 HPI/ROS CHIEF COMPLAINT: Shortness of breath HISTORY OF PRESENT ILLNESS: This is a 52-year-old female presents to the emergency department for dyspnea over the last couple of days. Patient states that the last couple of days she's had increased dyspnea or exertional, worse today. Feels that her diaphragm is preventing her from taking a deep breath. She denies fevers or chills. No nausea or vomiting. Has had intermittent diarrhea, although she does not recall having a bowel movement today. No fevers. She's been using her nebulizer more frequently at home. No rashes or headaches. She also has some postnasal drip. REVIEW OF SYSTEMS: Constitutional: No fever, no chills. Eyes: No discharge. ENT: As above. Cardiovascular: No chest pain, no palpitations. Respiratory: As above. Gastrointestinal: No abdominal pain, no vomiting. Genitourinary: No hematuria. Musculoskeletal: No back pain. Skin: No rashes. Neurological: No headache. Allergies: Coded Allergies: aripiprazole (Verified Allergy, Intermediate, RASH, 01/09/18) lithium (Verified Allergy, Intermediate, RASH, 01/09/18) lurasidone (Verified Allergy, Intermediate, 01/09/18) quetiapine (Verified Allergy, Intermediate, DIZZY, 01/09/18) DIzzy varenicline (Verified Allergy, Intermediate, SWELLING, 01/09/18) ciprofloxacin (Verified Allergy, Mild, N/V, 01/09/18) sulfamethoxazole (Verified Allergy, Mild, HIVES, 01/09/18) topiramate (Verified Allergy, Mild, UPSET STOMACH, 01/09/18) Upset stomach trimethoprim (Verified Allergy, Mild, HIVES, 01/09/18) haloperidol (Verified Adverse Reaction, Severe, DYSTONIC REACTION, 01/09/18) propofol (Verified Adverse Reaction, Severe, HALLUCINATIONS, 01/09/18) PT STATES "I HEARD VOICES TELLING ME TO KILL MYSELF THE NIGHT AFTER I HAD A COLONOSCOPY" amoxicillin (Verified Adverse Reaction, Intermediate, Pruritus , 01/09/18) adhesive tape (Verified Adverse Reaction, Mild, RASH, 01/09/18) fluticasone (Verified Adverse Reaction, Mild, THRUSH, 01/09/18) salmeterol (Verified Adverse Reaction, Mild, THRUSH, 01/09/18) Home Meds Active Scripts Metoprolol Succinate (METOPROLOL SUCCINATE) 50 Mg Tab.er.24h, 1 TAB PO QDAY, #30 TAB Prov:SKINNY TREVINO MD 06/10/17 Tiotropium [place] (SPIRIVA) 18 Mcg/Cap Inh, 2 PUFF INH DAILY, #1 INH 11 Refills Prov:SKINNY TREVINO MD 05/14/17 Nystatin (NYSTOP) 60 Gm Powder, 1 DONALD TP BID, #1 BOTTLE 0 Refills APPLY TO AFFECTED AREA TWICE A DAY Prov:SKINNY TREVINO MD 03/13/17 Reported Medications Oxygen (OXYGEN) Inha, 2 L INH QDAY, L 01/09/18 Budesonide/Formoterol Fumarate (SYMBICORT 80-4.5 MCG INHALER) 10.2 Gm Hfa.aer.ad, 10.2 GM IH BID 12/07/17 Bupropion Hcl (WELLBUTRIN SR) 150 Mg Tablet.er, 150 MG PO QDAY, TAB 11/11/17 Melatonin (MELATONIN) 2.5 Mg Tab.chew, 2.5 MG PO DAILY, TAB.CHEW 11/11/17 Escitalopram Oxalate (ESCITALOPRAM OXALATE) 20 Mg Tablet, 20 MG PO QDAY 11/11/17 Pramipexole Di-Hcl (MIRAPEX) 1 Mg Tablet, 1 MG PO DAILY 11/11/17 Famotidine (FAMOTIDINE) 20 Mg Tablet, 20 MG PO QDAY, TAB 11/11/17 [place]-3/Dha/Epa/Fish Oil (OMEGA-3 FISH OIL 1,000 MG SFGL) 1,000 Mg Capsule, 1000 MG PO BID, CAPSULE 07/06/17 Cholecalciferol (Vitamin D3) (VITAMIN D3) 1,000 Unit Tablet, 1000 UNIT PO QDAY, TAB 06/20/17 Ibuprofen (IBUPROFEN) 200 Mg Tablet, 2 TAB PO Q8H PRN for PAIN, TAB (MOTRIN): TAKE 400 MG EVERY 8 HRS NEEDED FOR PAIN. 02/03/17 Hydroxyzine Pamoate (HYDROXYZINE PAMOATE) 25 Mg Capsule, 25 TAB PO Q8H PRN for ANXIETY/INSOMNIA 01/27/17 Albuterol Sulfate 90 Mcg/Act (PROAIR HFA 90 MCG/ACT) 8.5 Gm Hfa.aer.ad, 2 PUFF IH Q4-6H PRN for DYSPNEA, INHALER 01/27/17 Multivitamin (MULTIVITAMINS) 1 Each Capsule, 1 EACH PO DAILY, CAPSULE 12/08/16 Discontinued Reported Medications Amoxicillin/Potassium Clav (AUGMENTIN 500-125 TABLET) 1 Each Tablet, 2 TAB PO Q12H for 5 Days, TAB 12/27/17 Discontinued Scripts Prednisone (PREDNISONE) 20 Mg Tablet, 20 MG PO QDAY for reduced lung inflammation, #12 2 tablets by mouth daily for 4 days and then 1 tablet for 4 days Prov:DENIA PUGA DO 12/13/17 Guaifenesin/Codeine (GUAIFENESIN-CODEINE SYRUP) 5 Ml Syrp, 5 ML PO Q6H PRN for COUGH, #120 ML 0 Refills Prov:GARY RODRIGUEZ MD 12/07/17 Prednisone (PREDNISONE) 20 Mg Tablet, 60 MG PO QDAY, #12 TAB 0 Refills Prov:GARY RODRIGUEZ MD 12/07/17 Past Medical/Surgical History The patient has a past medical and surgical history 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 Reviewed Nurses Notes: Yes Hx Smoking: Yes Smoking Status: Current: Every Day Smoker Exposure to Second Hand Smoke?: Yes Hx Substance Use Disorder: No Hx Alcohol Use: No Constitutional Vital Sign - Last 24 Hours 01/09/18 01/09/18 01/09/18 01/09/18 20:27 20:28 20:35 20:50 Temp 98.9 Pulse 69 74 59 Resp 16 B/P (MAP) 151/89 151/89 (109) Pulse Ox 95 96 98 O2 Delivery Room Air 01/09/18 01/09/18 01/09/18 01/09/18 20:53 20:54 20:59 21:05 Pulse 76 62 Resp 16 Pulse Ox 100 99 O2 Delivery Nasal Cannula O2 Flow Rate 3.0 2.0 01/09/18 01/09/18 01/09/18 01/09/18 21:20 21:50 21:52 22:05 Pulse 65 69 70 70 Resp 16 Pulse Ox 95 99 95 01/09/18 01/09/18 22:19 22:26 Pulse 85 Resp 16 B/P (MAP) 128/62 (84) 128/82 (97) Pulse Ox 95 O2 Delivery Room Air Physical Exam General Appearance: The patient is alert, has no immediate need for airway protection and no signs of toxicity, audible wheezing. Eyes: Pupils equal and round no pallor or injection. ENT, Mouth: Mucous membranes are moist. Erythema to the posterior oropharynx. Respiratory: There are no retractions, audible wheezing sitting at the bedside, diminished lung sounds throughout, faint expiratory wheezes in the right base, 3 wheezes in the upper lobes. Cardiovascular: Regular rate and rhythm, distant, no murmurs, clicks or rubs. Gastrointestinal: Abdomen is morbidly obese, soft, mild epigastric discomfort with palpation to the right upper quadrant. no masses, bowel sounds normal. Neurological: Alert and oriented 4. Moving all extremities. Following all commands. No focal neuro deficits. Skin: Warm and dry, no rashes. Musculoskeletal: Neck is supple non tender. Extremities are nontender, nonswollen and have full range of motion. DIFFERENTIAL DIAGNOSIS: After history and physical exam differential diagnosis was considered for shortness of breath including but not limited to pulmonary infectious process, COPD, asthma, pulmonary embolus and congestive heart failure. Medical Decision Making Data Points Result Diagram: 01/09/18204901/09/182049 Laboratory Hematology Test 01/09/18 20:50 Red Blood Count 4.48 M/uL (4.17-5.56) Mean Corpuscular Volume 92.3 fL (80.0-96.0) Mean Corpuscular Hemoglobin 31.7 pg (26.0-33.0) Mean Corpuscular Hemoglobin Concent 34.4 g/dL (32.0-36.0) Red Cell Distribution Width 12.2 % (11.5-14.5) Mean Platelet Volume 9.2 fL (7.2-11.1) Neutrophils (%) (Auto) 60.4 % (39.4-72.5) Lymphocytes (%) (Auto) 25.9 % (17.6-49.6) Monocytes (%) (Auto) 11.1 % (4.1-12.4) Eosinophils (%) (Auto) 1.9 % (0.4-6.7) Basophils (%) (Auto) 0.7 % (0.3-1.4) Nucleated RBC Relative Count (auto) 0.1 /100WBC Neutrophils # (Auto) 3.6 K/uL (2.0-7.4) Lymphocytes # (Auto) 1.6 K/uL (1.3-3.6) Monocytes # (Auto) 0.7 K/uL (0.3-1.0) Eosinophils # (Auto) 0.1 K/uL (0.0-0.5) Basophils # (Auto) 0.0 K/uL (0.0-0.1) Nucleated RBC Absolute Count (auto) 0.01 K/uL Sodium Level 138 mmol/L (137-145) Potassium Level 4.0 mmol/L (3.5-5.0) Chloride Level 98 mmol/L (98-107) Carbon Dioxide Level 32 mmol/L (22-31) Blood Urea Nitrogen 14 mg/dl (7-18) Creatinine 1.10 mg/dl (0.52-1.04) Glomerular Filtration Rate Calc 51.8 Random Glucose 104 mg/dl (75-110) Calcium Level 9.4 mg/dl (8.4-10.2) Total Bilirubin 0.3 mg/dl (0.2-1.3) Aspartate Amino Transf (AST/SGOT) 17 U/L (0-35) Alanine Aminotransferase (ALT/SGPT) 23 U/L (0-56) Alkaline Phosphatase 69 U/L (0-126) Troponin I < 0.012 ng/ml B-Type Natriuretic Peptide 8 pg/ml (0-100) Total Protein 6.6 g/dl (6.3-8.2) Albumin 3.6 g/dl (3.5-5.0) Lipase 104 U/L (23-300) Chemistry Test 01/09/18 20:50 White Blood Count 6.0 k/uL (4.5-11.0) Red Blood Count 4.48 M/uL (4.17-5.56) Hemoglobin 14.2 g/dL (12.0-16.0) Hematocrit 41.3 % (34.0-47.0) Mean Corpuscular Volume 92.3 fL (80.0-96.0) Mean Corpuscular Hemoglobin 31.7 pg (26.0-33.0) Mean Corpuscular Hemoglobin Concent 34.4 g/dL (32.0-36.0) Red Cell Distribution Width 12.2 % (11.5-14.5) Platelet Count 189 K/uL (150-450) Mean Platelet Volume 9.2 fL (7.2-11.1) Neutrophils (%) (Auto) 60.4 % (39.4-72.5) Lymphocytes (%) (Auto) 25.9 % (17.6-49.6) Monocytes (%) (Auto) 11.1 % (4.1-12.4) Eosinophils (%) (Auto) 1.9 % (0.4-6.7) Basophils (%) (Auto) 0.7 % (0.3-1.4) Nucleated RBC Relative Count (auto) 0.1 /100WBC Neutrophils # (Auto) 3.6 K/uL (2.0-7.4) Lymphocytes # (Auto) 1.6 K/uL (1.3-3.6) Monocytes # (Auto) 0.7 K/uL (0.3-1.0) Eosinophils # (Auto) 0.1 K/uL (0.0-0.5) Basophils # (Auto) 0.0 K/uL (0.0-0.1) Nucleated RBC Absolute Count (auto) 0.01 K/uL Glomerular Filtration Rate Calc 51.8 Calcium Level 9.4 mg/dl (8.4-10.2) Total Bilirubin 0.3 mg/dl (0.2-1.3) Aspartate Amino Transf (AST/SGOT) 17 U/L (0-35) Alanine Aminotransferase (ALT/SGPT) 23 U/L (0-56) Alkaline Phosphatase 69 U/L (0-126) Troponin I < 0.012 ng/ml B-Type Natriuretic Peptide 8 pg/ml (0-100) Total Protein 6.6 g/dl (6.3-8.2) Albumin 3.6 g/dl (3.5-5.0) Lipase 104 U/L (23-300) EKG/Imaging EKG Interpretation 12 lead EKG: Times EKG 2100. Rhythm: Normal sinus rhythm, ventricular rate 62 bpm. [place]: normal QRS: normal ST segments: No ST depression or elevation identified. No significant difference from the 07/06/2017 EKG other than inverted T-wave in the V2 lead the old EKG otherwise no other significant changes. Imaging INDICATION: RESP DISTRESS EXAM DATE: 01/09/2018 8:42 PM COMPARISON: Chest radiograph and CT abdomen and pelvis 12/27/2017. FINDINGS: 2 views of the chest with 2 AP supine images of the abdomen. The lungs are well-expanded and clear. No pleural effusion or pneumothorax. Heart size is normal. Bowel gas pattern is nonobstructive. No pneumatosis, pneumoperitoneum or portal venous gas. No evidence of large volume ascites or mass. Moderate amount of stool in the colon. Cholecystectomy clips. No acute osseous abnormality. IMPRESSION: 1. No acute cardiopulmonary abnormality. 2. Moderate amount of stool in the colon could indicate a degree of constipation. Report Dictated By: Ramiro Rehman MD at 01/09/2018 9:53 PM Report E-Signed By: Ramiro Rehman MD at 01/09/2018 9:57 PM WSN:[id number] [facility] Patient: Natividad Loaiza : 1965 Visit/Account:[id number] Date of [facility]: 01/09/2018 INDICATION: RESP DISTRESS EXAM DATE: 01/09/2018 8:42 PM COMPARISON: Chest radiograph and CT abdomen and pelvis 12/27/2017. FINDINGS: 2 views of the chest with 2 AP supine images of the abdomen. The lungs are well-expanded and clear. No pleural effusion or pneumothorax. Heart size is normal. Bowel gas pattern is nonobstructive. No pneumatosis, pneumoperitoneum or portal venous gas. No evidence of large volume ascites or mass. Moderate amount of stool in the colon. Cholecystectomy clips. No acute osseous abnormality. IMPRESSION: 1. No acute cardiopulmonary abnormality. 2. Moderate amount of stool in the colon could indicate a degree of constipation. Report Dictated By: Ramiro Rehman MD at 01/09/2018 9:53 PM Report E-Signed By: Ramiro Rehman MD at 01/09/2018 9:57 PM WSN:[id number] ED Course/Re-evaluation Clinical Indication for ER IV: IV Access ED Course The patient was admitted to room. A history of physical were obtained. Differential diagnoses were considered. An IV was started. A CBC, CMP and troponin were obtained. Lab studies unremarkable, creatinine 1.10 unchanged from previous studies. 125 mg IV Solu-Medrol. Negative troponin. Negative BNP. A 20 minute DuoNeb was given, which did provide some relief. A two-view chest x-ray was negative for acute cardiopulmonary abnormality. KUB showing a moderate amount of stool indicating constipation. I reviewed the laboratory studies as well as the x-ray results with the patient, did tell her that there is a moderate amount of stool in her x-ray indicating constipation. I did tell p atient that I feel that her constipation is causing some increased pressure in her abdomen and diaphragm making it increasingly difficult to get a deep breath which is causing her shortness of breath. Patient agreed with this. Patient was given a bottle of mag citrate, she'll take this when she gets home. Patient does have a long standing history of constipation. I also recommended calling her doctors hospital provider's office this next week and try to schedule a follow-up appointment within the next couple of weeks for reevaluation. The patient expressed understanding. The patient has no other questions or concerns at this time and was discharged home. Patient did ambulate out on her own, with her on oxygen. No signs of distress. Decision to Disposition Date: Jan 09, 2018 Decision to Disposition Time: 22:08 Depart Departure Latest Vital Signs Vital Signs Date Time Temp Pulse Resp B/P (MAP) Pulse Ox O2 Delivery O2 Flow Rate FiO2 01/09/18 22:26 85 16 128/82 (97) 95 Room Air 01/09/18 20:59 2.0 01/09/18 20:27 98.9 Core Temperature (Celsius): 37.23 Impression: Primary Impression: Dyspnea on exertion Additional Impression: Constipation Condition: Improved Disposition: HOME OR SELF-CARE Referrals: SKINNY TREVINO MD (PCP) Patient Instructions: Constipation (ED), Dyspnea (ED) Additional Instructions: I believe the increased shortness of breath you are experiencing is secondary to constipation. Take the mag-citrate when you get home. Use your nebulizers as needed. Call Dr. Trevino's office next week to see if they can squeeze you in for a f ollow up within the next couple of weeks for reevaluation. Your lab work, EKG and chest x-ray look good today. Drink plenty of water. Get plenty of rest. Return to the ED for any other concerns or worsening symptoms. Problem Qualifiers Additional Impression: Constipation Constipation type: unspecified constipation type Qualified Codes: K59.00 - Constipation, unspecified GUILLE TODD [employer] Jan 09, 2018 20:29
[2018-01-09] MEDS ORDERED: OXYGENHOME INH (20:39)
[2018-01-09] MEDS ORDERED: methylPREDNIS SUCC 125 MG/2ML IVP ONE (20:45)
[2018-01-09] MEDS: ALBUTEROL/IPRATROPIUM 3 ML NEB NEB SCH ×3 (20:53→21:47)
[2018-01-09 21:03] LABS: PLATELET COUNT, AUTOMATED 189 K/uL (150-450)
--- NOTE | 2018-01-09 22:01 | RADIOLOGY IMAGING REPORT ---
FACILITY: [facility] [place] PATIENT NAME: Natividad Loaiza : 1965 MR: [id number] V: [id number] EXAM DATE: [id number] ORDERING PHYSICIAN: GUILLE TODD TECHNOLOGIST: Location: [facility] [place] Patient: Natividad Loaiza : 1965 Visit/Account:[id number] Date of [place]: 01/09/2018 INDICATION: RESP DISTRESS EXAM DATE: 01/09/2018 8:42 PM COMPARISON: Chest radiograph and CT abdomen and pelvis 12/27/2017. FINDINGS: 2 views of the chest with 2 AP supine images of the abdomen. The lungs are well-expanded and clear. No pleural effusion or pneumothorax. Heart size is normal. Bowel gas pattern is nonobstructive. No pneumatosis, pneumoperitoneum or portal venous gas. No eviden ce of large volume ascites or mass. Moderate amount of stool in the colon. Cholecystectomy clips. No acute osseous abnormality. IMPRESSION: 1. No acute cardiopulmonary abnormality. 2. Moderate amount of stool in the colon could indicate a degree of constipation. Report Dictated By: Ramiro Rehman MD at 01/09/2018 9:53 PM Report E-Signed By: Ramiro Rehman MD at 01/09/2018 9:57 PM WSN:[id number]
--- NOTE | 2018-01-09 22:01 | RADIOLOGY IMAGING REPORT ---
FACILITY: [facility] PATIENT NAME: Natividad Loaiza : 1965 MR: [id number] V: [id number] EXAM DATE: [id number] ORDERING PHYSICIAN: GUILLE TODD TECHNOLOGIST: Location: [facility] Patient: Natividad Loaiza : 1965 Visit/Account:[id number] Date of [place]: 01/09/2018 INDICATION: RESP DISTRESS EXAM DATE: 01/09/2018 8:42 PM COMPARISON: Chest radiograph and CT abdomen and pelvis 12/27/2017. FINDINGS: 2 views of the chest with 2 AP supine images of the abdomen. The lungs are well-expanded and clear. No pleural effusion or pneumothorax. Heart size is normal. Bowel gas pattern is nonobstructive. No pneumatosis, pneumoperitoneum or portal venous gas. No eviden ce of large volume ascites or mass. Moderate amount of stool in the colon. Cholecystectomy clips. No acute osseous abnormality. IMPRESSION: 1. No acute cardiopulmonary abnormality. 2. Moderate amount of stool in the colon could indicate a degree of constipation. Report Dictated By: Ramiro Rehman MD at 01/09/2018 9:53 PM Report E-Signed By: Ramiro Rehman MD at 01/09/2018 9:57 PM WSN:[id number]
[2018-01-09] MEDS ORDERED: MAGNESIUM CITRATE 300 ML BTL PO ONE (22:15)
[2018-01-09 22:26] VITALS: BP 128/82
--- NOTE | 2018-01-09 23:09 | EKG ---
FACILITY: [facility] PATIENT NAME: FLORENCIO CRUZ : [id number] MR: [id number] V: [id number] EXAM DATE: ORDERING PHYSICIAN: GUILLE TODD TECHNOLOGIST: EMILY Test Reason : DYSPNEA Blood Pressure : / mmHG Vent. Rate : 062 BPM Atrial Rate : 062 BPM P-R Int : 144 ms QRS Dur : 080 ms QT Int : 430 ms P-R-T Axes : 065 063 072 degrees QTc Int : 436 ms Sinus rhythm No acute appearing findings When compared with ECG of 13-DEC-2017 17:50, No significant change was found Confirmed by ARIELLE MCCOY ([id number]) on 01/10/2018 3:23:53 AM Referred By: Confirmed By:ARIELLE MCCOY
[2018-01-13] MEDS ORDERED: FLU60VIA41 IM (13:05)
[2018-01-13] MEDS ORDERED: LAC10L PO (13:10)
== END 2018-01-09 22:33 | disposition home or self-care (01) ==
LOC: ER 20:49
DX: K59.00 Constipation, unspecified (principal); R06.02 Shortness of breath
CPT/HCPCS: 71046; 74018; 83690; 83880; 84484; 85025; 93005; 94640; 96374; 99284; A9270; J2930; J7620; 82040; 82247; 82310; 82374; 82435; 82565; 82947; 84075; 84132; 84155; 84295; 84450; 84460; 84520

== ENCOUNTER 2018-01-10 11:03 | Emergency (ER) | payer MEDICARE, BC ==
[2015-06-25 12:47] VITALS: BMI 43.0
[~2018-01-10 11:03] MED LIST changes: +OXYGENHOME INH
[2018-01-10] MEDS ORDERED: MAG HYD/AL HYD/SIMETH 30ML UDC PO ONE (12:40)
[2018-01-10] MEDS ORDERED: LIDOCAINE 2% VISC SLN 15ML UDC PO ONE (12:40)
--- NOTE | 2018-01-10 12:49 | ER Report ---
History and Physical Time Seen By MD: 12:00 Hx. of Stated Complaint: PATIENT REPORTS THAT SHE IS STILL FEELING CONSTIPATED AFTER HER VISIT LAST NIGHT HPI/ROS CHIEF COMPLAINT: abdominal pain HISTORY OF PRESENT ILLNESS: pt was seen here yesterday fro constipation; has had similar in past though states pain is higher up than normal. Pt states that pain has been constant, non radiating, and continues despite mag citrate last night. Passing little gas, last bm was 2 d agon and minimal. Spit up water today but otherwise not vomiting. Feels nausea. Denies cp, though states that she feels more sob than normal with her copd, due to discomfort at the diaphragm. No fevers/chills REVIEW OF SYSTEMS: Respiratory: No cough, no dyspnea. Cardiovascular: No chest pain, no palpitations. Gastrointestinal: above Musculoskeletal: No back pain. Remainder of the 14 system rev: Yes Allergies: Coded Allergies: aripiprazole (Verified Allergy, Intermediate, RASH, 01/09/18) lithium (Verified Allergy, Intermediate, RASH, 01/09/18) lurasidone (Verified Allergy, Intermediate, 01/09/18) quetiapine (Verified Allergy, Intermediate, DIZZY, 01/09/18) DIzzy varenicline (Verified Allergy, Intermediate, SWELLING, 01/09/18) ciprofloxacin (Verified Allergy, Mild, N/V, 01/09/18) sulfamethoxazole (Verified Allergy, Mild, HIVES, 01/09/18) topiramate (Verified Allergy, Mild, UPSET STOMACH, 01/09/18) Upset stomach trimethoprim (Verified Allergy, Mild, HIVES, 01/09/18) haloperidol (Verified Adverse Reaction, Severe, DYSTONIC REACTION, 01/09/18) propofol (Verified Adverse Reaction, Severe, HALLUCINATIONS, 01/09/18) PT STATES "I HEARD VOICES TELLING ME TO KILL MYSELF THE NIGHT AFTER I HAD A COLONOSCOPY" amoxicillin (Verified Adverse Reaction, Intermediate, Pruritus , 01/09/18) adhesive tape (Verified Adverse Reaction, Mild, RASH, 01/09/18) fluticasone (Verified Adverse Reaction, Mild, THRUSH, 01/09/18) salmeterol (Verified Adverse Reaction, Mild, THRUSH, 01/09/18) Home Meds Active Scripts Metoprolol Succinate (METOPROLOL SUCCINATE) 50 Mg Tab.er.24h, 1 TAB PO QDAY, #30 TAB Prov:SKINNY EMMANUEL MD 06/10/17 Tiotropium [place] (SPIRIVA) 18 Mcg/Cap Inh, 2 PUFF INH DAILY, #1 INH 11 Refills Prov:SKINNY EMMANUEL MD 05/14/17 Nystatin (NYSTOP) 60 Gm Powder, 1 DONALD TP BID, #1 BOTTLE 0 Refills APPLY TO AFFECTED AREA TWICE A DAY Prov:SKINNY EMMANUEL MD 03/13/17 Reported Medications Oxygen (OXYGEN) Inha, 2 L INH QDAY, L 01/09/18 Budesonide/Formoterol Fumarate (SYMBICORT 80-4.5 MCG INHALER) 10.2 Gm Hfa.aer.ad, 10.2 GM IH BID 12/07/17 Bupropion Hcl (WELLBUTRIN SR) 150 Mg Tablet.er, 150 MG PO QDAY, TAB 11/11/17 Melatonin (MELATONIN) 2.5 Mg Tab.chew, 2.5 MG PO DAILY, TAB.CHEW 11/11/17 Escitalopram Oxalate (ESCITALOPRAM OXALATE) 20 Mg Tablet, 20 MG PO QDAY 11/11/17 Pramipexole Di-Hcl (MIRAPEX) 1 Mg Tablet, 1 MG PO DAILY 11/11/17 Famotidine (FAMOTIDINE) 20 Mg Tablet, 20 MG PO QDAY, TAB 11/11/17 [place]-3/Dha/Epa/Fish Oil (OMEGA-3 FISH OIL 1,000 MG SFGL) 1,000 Mg Capsule, 1000 MG PO BID, CAPSULE 07/06/17 Cholecalciferol (Vitamin D3) (VITAMIN D3) 1,000 Unit Tablet, 1000 UNIT PO QDAY, TAB 06/20/17 Ibuprofen (IBUPROFEN) 200 Mg Tablet, 2 TAB PO Q8H PRN for PAIN, TAB (MOTRIN): TAKE 400 MG EVERY 8 HRS NEEDED FOR PAIN. 02/03/17 Hydroxyzine Pamoate (HYDROXYZINE PAMOATE) 25 Mg Capsule, 25 TAB PO Q8H PRN for ANXIETY/INSOMNIA 01/27/17 Albuterol Sulfate 90 Mcg/Act (PROAIR HFA 90 MCG/ACT) 8.5 Gm Hfa.aer.ad, 2 PUFF IH Q4-6H PRN for DYSPNEA, INHALER 01/27/17 Multivitamin (MULTIVITAMINS) 1 Each Capsule, 1 EACH PO DAILY, CAPSULE 12/08/16 Discontinued Reported Medications Amoxicillin/Potassium Clav (AUGMENTIN 500-125 TABLET) 1 Each Tablet, 2 TAB PO Q12H for 5 Days, TAB 12/27/17 Discontinued Scripts Prednisone (PREDNISONE) 20 Mg Tablet, 20 MG PO QDAY for reduced lung inflammation, #12 2 tablets by mouth daily for 4 days and then 1 tablet for 4 days Prov:VIVIENDENIA Lena COSME 12/13/17 Guaifenesin/Codeine (GUAIFENESIN-CODEINE SYRUP) 5 Ml Syrp, 5 ML PO Q6H PRN for COUGH, #120 ML 0 Refills Prov:GARY RODRIGUEZ MD 12/07/17 Prednisone (PREDNISONE) 20 Mg Tablet, 60 MG PO QDAY, #12 TAB 0 Refills Prov:GARY RODRIGUEZ MD 12/07/17 Reviewed Nurses Notes: Yes Old Medical Records Reviewed: Yes Hx Smoking: Yes Smoking Status: Current: Every Day Smoker Exposure to Second Hand Smoke?: Yes Hx Substance Use Disorder: No Hx Alcohol Use: No Constitutional Vital Sign - Last 24 Hours 01/10/18 01/10/18 11:09 12:21 Temp 97.9 Pulse 66 Resp 87 24 B/P (MAP) 147/79 139/65 (89) Pulse Ox 89 94 O2 Delivery Room Air Nasal Cannula O2 Flow Rate 3 Physical Exam General Appearance: The patient is alert, has no immediate need for airway protection and no signs of toxicity. [ ] Pupils equal and round no pallor or injection. ENT, Mouth: Mucous membranes are moist. Respiratory: There are no retractions, lungs are clear to auscultation. Cardiovascular: Regular rate and rhythm. [ ] Gastrointestinal: abd distended, epigastric ttp, no peritoneal sgs. Decreased bs throughout. Neurological: alert, oriented Skin: Warm and dry, no rashes. Musculoskeletal: Extremities are nontender, nonswollen and have full range of motion. DIFFERENTIAL DIAGNOSIS: After history and physical exam differential diagnosis was considered for pancreatitis, reformed galstone, pud or complication of, v constpiaton or other less emergent disease. Medical Decision Making Data Points Result Diagram: 01/10/18 1251 01/10/18 1251 Laboratory Hematology Test 01/10/18 12:51 Red Blood Count 4.51 M/uL (4.17-5.56) Mean Corpuscular Volume 94.2 fL (80.0-96.0) Mean Corpuscular Hemoglobin 31.8 pg (26.0-33.0) Mean Corpuscular Hemoglobin Concent 33.7 g/dL (32.0-36.0) Red Cell Distribution Width 12.6 % (11.5-14.5) Mean Platelet Volume 9.1 fL (7.2-11.1) Neutrophils (%) (Auto) 89.2 % (39.4-72.5) Lymphocytes (%) (Auto) 6.6 % (17.6-49.6) Monocytes (%) (Auto) 4.0 % (4.1-12.4) Eosinophils (%) (Auto) 0.0 % (0.4-6.7) Basophils (%) (Auto) 0.2 % (0.3-1.4) Nucleated RBC Relative Count (auto) 0.0 /100WBC Neutrophils # (Auto) 9.8 K/uL (2.0-7.4) Lymphocytes # (Auto) 0.7 K/uL (1.3-3.6) Monocytes # (Auto) 0.4 K/uL (0.3-1.0) Eosinophils # (Auto) 0.0 K/uL (0.0-0.5) Basophils # (Auto) 0.0 K/uL (0.0-0.1) Nucleated RBC Absolute Count (auto) 0.00 K/uL Sodium Level 137 mmol/L (137-145) Potassium Level 4.6 mmol/L (3.5-5.0) Chloride Level 98 mmol/L (98-107) Carbon Dioxide Level 30 mmol/L (22-31) Blood Urea Nitrogen 13 mg/dl (7-18) Creatinine 0.90 mg/dl (0.52-1.04) Glomerular Filtration Rate Calc > 60.0 Random Glucose 120 mg/dl (75-110) Calcium Level 9.6 mg/dl (8.4-10.2) Magnesium Level 2.2 mg/dl (1.7-2.2) Total Bilirubin 0.3 mg/dl (0.2-1.3) Aspartate Amino Transf (AST/SGOT) 17 U/L (0-35) Alanine Aminotransferase (ALT/SGPT) 24 U/L (0-56) Alkaline Phosphatase 74 U/L (0-126) Total Protein 7.1 g/dl (6.3-8.2) Albumin 4.0 g/dl (3.5-5.0) Lipase 47 U/L (23-300) Chemistry Test 01/10/18 12:51 White Blood Count 11.0 k/uL (4.5-11.0) Red Blood Count 4.51 M/uL (4.17-5.56) Hemoglobin 14.3 g/dL (12.0-16.0) Hematocrit 42.5 % (34.0-47.0) Mean Corpuscular Volume 94.2 fL (80.0-96.0) Mean Corpuscular Hemoglobin 31.8 pg (26.0-33.0) Mean Corpuscular Hemoglobin Concent 33.7 g/dL (32.0-36.0) Red Cell Distribution Width 12.6 % (11.5-14.5) Platelet Count 206 K/uL (150-450) Mean Platelet Volume 9.1 fL (7.2-11.1) Neutrophils (%) (Auto) 89.2 % (39.4-72.5) Lymphocytes (%) (Auto) 6.6 % (17.6-49.6) Monocytes (%) (Auto) 4.0 % (4.1-12.4) Eosinophils (%) (Auto) 0.0 % (0.4-6.7) Basophils (%) (Auto) 0.2 % (0.3-1.4) Nucleated RBC Relative Count (auto) 0.0 /100WBC Neutrophils # (Auto) 9.8 K/uL (2.0-7.4) Lymphocytes # (Auto) 0.7 K/uL (1.3-3.6) Monocytes # (Auto) 0.4 K/uL (0.3-1.0) Eosinophils # (Auto) 0.0 K/uL (0.0-0.5) Basophils # (Auto) 0.0 K/uL (0.0-0.1) Nucleated RBC Absolute Count (auto) 0.00 K/uL Glomerular Filtration Rate Calc > 60.0 Calcium Level 9.6 mg/dl (8.4-10.2) Magnesium Level 2.2 mg/dl (1.7-2.2) Total Bilirubin 0.3 mg/dl (0.2-1.3) Aspartate Amino Transf (AST/SGOT) 17 U/L (0-35) Alanine Aminotransferase (ALT/SGPT) 24 U/L (0-56) Alkaline Phosphatase 74 U/L (0-126) Total Protein 7.1 g/dl (6.3-8.2) Albumin 4.0 g/dl (3.5-5.0) Lipase 47 U/L (23-300) ED Course/Re-evaluation ED Course ED eval does not show evidence of worsening exam compared to yesterday, or of acute abdomen. Electrolytes unremarkable, no e/o pancreatitis. Discussed further management and pt understands strict rtn precautions. Decision to Disposition Date: Jan 10, 2018 Decision to Disposition Time: 13:46 Depart Departure Latest Vital Signs Vital Signs Date Time Temp Pulse Resp B/P (MAP) Pulse Ox O2 Delivery O2 Flow Rate FiO2 01/10/18 12:21 97.9 66 24 139/65 (89) 94 Nasal Cannula 3 Core Temperature (Celsius): 37.23 Impression: Primary Impression: Abdominal pain Condition: Improved Disposition: HOME OR SELF-CARE Referrals: SKINNY EMMANUEL MD (PCP) Patient Instructions: Constipation (ED) Additional Instructions: As we discussed, I recommend you buy fleets enemas over the counter and try 1-2 later today, as well as magnesium citrate. Once you are able to have a normal bowel movement, i recommend you use miralax for longer term stool softener and dose to effect. Please return immediately if vomiting and not tolerating intake, concerning pain, or any concerns. Problem Qualifiers Primary Impression: Abdominal pain Abdominal location: generalized Qualified Codes: R10.84 - Generalized abdominal pain FRAN VALADEZ MD Jan 10, 2018 12:49
[2018-01-10 12:57] LABS: PLATELET COUNT, AUTOMATED 206 K/uL (150-450)
[2018-01-10] MEDS ORDERED: MAGNESIUM CITRATE 300 ML BTL PO ONE (13:45)
[2018-01-10 13:54] VITALS: BP 144/72
== END 2018-01-10 14:05 | disposition home or self-care (01) ==
LOC: ER 12:10
DX: R10.84 Generalized abdominal pain (principal); F17.210 Nicotine dependence, cigarettes, uncomplicated
CPT/HCPCS: 36415; 83690; 83735; 85025; 99283; A9270; 82040; 82247; 82310; 82374; 82435; 82565; 82947; 84075; 84132; 84155; 84295; 84450; 84460; 84520

== ENCOUNTER 2018-01-12 06:58 | Emergency (ER) | payer MEDICARE, BC ==
[2015-06-25 12:47] VITALS: Wt 122.5 kg
[2018-01-12 08:00] VITALS: BP 134/69
[2018-01-12] MEDS ORDERED: IOPAMIDOL 76% 75 ML INFUS BTL 75 ML ONE (08:04)
[2018-01-12] MEDS ORDERED: DIATRIZOATE MEGL/DIATRIZOA SOD 367 MG/ML SOLN ONE (08:04)
[2018-01-12 08:06] LABS: PLATELET COUNT, AUTOMATED 191 K/uL (150-450)
--- NOTE | 2018-01-12 08:20 | ER Report ---
History and Physical Time Seen By MD: 07:10 Hx. of Stated Complaint: constipation x 1 week, having liquid BMs yesterday, mid abdominal pain. (FRAN VALADEZ MD) HPI/ROS CHIEF COMPLAINT: abdominal pain HISTORY OF PRESENT ILLNESS: Patient has had ongoing, intermittent abdominal pain for weeks. She attributes it to constipation and was seen here recently for constipation. She was discharged and attempted treatment at home with laxatives and mag citrate. Despite this she has having increasing pain. Pain is across the upper abdomen and right lower quadrant. Pain is constant. Pain is associated with nausea. Patient has not had vomiting, fever, chills, change in urination, bloody or black stool. Patient has had moderate amount of liquid stool. But has had no bowel movement since yesterday. REVIEW OF SYSTEMS: Constitutional: No fever, no chills. Eyes: No discharge. ENT: No sore throat. Cardiovascular: No chest pain, no palpitations. Respiratory: No cough, no shortness of breath. Gastrointestinal: above Genitourinary: No hematuria. Musculoskeletal: No back pain. Skin: No rashes. Neurological: No headache. (FRAN VALADEZ MD) Allergies: Coded Allergies: aripiprazole (Verified Allergy, Intermediate, RASH, 01/12/18) lithium (Verified Allergy, Intermediate, RASH, 01/12/18) lurasidone (Verified Allergy, Intermediate, 01/12/18) quetiapine (Verified Allergy, Intermediate, DIZZY, 01/12/18) DIzzy varenicline (Verified Allergy, Intermediate, SWELLING, 01/12/18) ciprofloxacin (Verified Allergy, Mild, N/V, 01/12/18) sulfamethoxazole (Verified Allergy, Mild, HIVES, 01/12/18) topiramate (Verified Allergy, Mild, UPSET STOMACH, 01/12/18) Upset stomach trimethoprim (Verified Allergy, Mild, HIVES, 01/12/18) haloperidol (Verified Adverse Reaction, Severe, DYSTONIC REACTION, 01/12/18) propofol (Verified Adverse Reaction, Severe, HALLUCINATIONS, 01/12/18) PT STATES "I HEARD VOICES TELLING ME TO KILL MYSELF THE NIGHT AFTER I HAD A COLONOSCOPY" amoxicillin (Verified Adverse Reaction, Intermediate, Pruritus , 01/12/18) adhesive tape (Verified Adverse Reaction, Mild, RASH, 01/12/18) fluticasone (Verified Adverse Reaction, Mild, THRUSH, 01/12/18) salmeterol (Verified Adverse Reaction, Mild, THRUSH, 01/12/18) Home Meds Active Scripts Metoprolol Succinate (METOPROLOL SUCCINATE) 50 Mg Tab.er.24h, 1 TAB PO QDAY, #30 TAB Prov:SKINNY EMMANUEL MD 06/10/17 Tiotropium [place] (SPIRIVA) 18 Mcg/Cap Inh, 2 PUFF INH DAILY, #1 INH 11 Refills Prov:SKINNY EMMANUEL MD 05/14/17 Nystatin (NYSTOP) 60 Gm Powder, 1 DONALD TP BID, #1 BOTTLE 0 Refills APPLY TO AFFECTED AREA TWICE A DAY Prov:SKINNY EMMANUEL MD 03/13/17 Reported Medications Oxygen (OXYGEN) Inha, 2 L INH QDAY, L 01/09/18 Budesonide/Formoterol Fumarate (SYMBICORT 80-4.5 MCG INHALER) 10.2 Gm Hfa.aer.ad, 10.2 GM IH BID 12/07/17 Bupropion Hcl (WELLBUTRIN SR) 150 Mg Tablet.er, 150 MG PO QDAY, TAB 11/11/17 Melatonin (MELATONIN) 2.5 Mg Tab.chew, 2.5 MG PO DAILY, TAB.CHEW 11/11/17 Escitalopram Oxalate (ESCITALOPRAM OXALATE) 20 Mg Tablet, 20 MG PO QDAY 11/11/17 Pramipexole Di-Hcl (MIRAPEX) 1 Mg Tablet, 1 MG PO DAILY 11/11/17 Famotidine (FAMOTIDINE) 20 Mg Tablet, 20 MG PO QDAY, TAB 11/11/17 [place]-3/Dha/Epa/Fish Oil (OMEGA-3 FISH OIL 1,000 MG SFGL) 1,000 Mg Capsule, 1000 MG PO BID, CAPSULE 07/06/17 Cholecalciferol (Vitamin D3) (VITAMIN D3) 1,000 Unit Tablet, 1000 UNIT PO QDAY, TAB 06/20/17 Ibuprofen (IBUPROFEN) 200 Mg Tablet, 2 TAB PO Q8H PRN for PAIN, TAB (MOTRIN): TAKE 400 MG EVERY 8 HRS NEEDED FOR PAIN. 02/03/17 Hydroxyzine Pamoate (HYDROXYZINE PAMOATE) 25 Mg Capsule, 25 TAB PO Q8H PRN for ANXIETY/INSOMNIA 01/27/17 Albuterol Sulfate 90 Mcg/Act (PROAIR HFA 90 MCG/ACT) 8.5 Gm Hfa.aer.ad, 2 PUFF IH Q4-6H PRN for DYSPNEA, INHALER 01/27/17 Multivitamin (MULTIVITAMINS) 1 Each Capsule, 1 EACH PO DAILY, CAPSULE 12/08/16 Reviewed Nurses Notes: Yes Old Medical Records Reviewed: Yes (FRAN VALADEZ MD) Hx Smoking: Yes Smoking Status: Current: Every Day Smoker Exposure to Second Hand Smoke?: Yes Hx Substance Use Disorder: No Hx Alcohol Use: No (FRAN VALADEZ MD) Constitutional Vital Sign - Last 24 Hours 01/12/18 01/12/18 01/12/18 01/12/18 07:04 07:05 07:13 07:28 Temp 98.1 Pulse 70 62 60 Resp 16 B/P (MAP) 162/98 162/98 (119) Pulse Ox 96 97 98 O2 Delivery Nasal Cannula 01/12/18 01/12/18 01/12/18 01/12/18 07:30 07:58 08:00 08:13 Pulse 61 60 B/P (MAP) 150/89 (109) 134/69 (90) Pulse Ox 97 96 01/12/18 08:28 Pulse 65 Pulse Ox 97 (YUDI VALADEZ MD) Physical Exam General Appearance: The patient is alert, has no immediate need for airway protection and no signs of toxicity. [ ] Eyes: Pupils equal and round no pallor or injection. ENT, Mouth: Mucous membranes are moist. Respiratory: There are no retractions, lungs are clear to auscultation. Cardiovascular: Regular rate and rhythm. Gastrointestinal: abdomen is distended, bowel sounds decreased. TTP throughout, angie ruq, rlq Neurological: alert, oriented Skin: Warm and dry, no rashes. Musculoskeletal: Extremities are nontender, nonswollen and have full range of motion. DIFFERENTIAL DIAGNOSIS: After history and physical exam differential diagnosis was considered for abdominal pain including but not limited to obstruction, appendicitis, cholecystitis, gastritis and urinary tract infection. (FRAN VALADEZ MD) Medical Decision Making Data Points Result Diagram: 01/12/18 0752 01/12/18 0752 Laboratory Hematology Test 01/12/18 07:52 01/12/18 07:55 Red Blood Count 4.37 M/uL (4.17-5.56) Mean Corpuscular Volume 95.1 fL (80.0-96.0) Mean Corpuscular Hemoglobin 32.0 pg (26.0-33.0) Mean Corpuscular Hemoglobin Concent 33.6 g/dL (32.0-36.0) Red Cell Distribution Width 12.5 % (11.5-14.5) Mean Platelet Volume 9.6 fL (7.2-11.1) Neutrophils (%) (Auto) 63.1 % (39.4-72.5) Lymphocytes (%) (Auto) 24.4 % (17.6-49.6) Monocytes (%) (Auto) 10.2 % (4.1-12.4) Eosinophils (%) (Auto) 1.4 % (0.4-6.7) Basophils (%) (Auto) 0.9 % (0.3-1.4) Nucleated RBC Relative Count (auto) 0.0 /100WBC Neutrophils # (Auto) 4.5 K/uL (2.0-7.4) Lymphocytes # (Auto) 1.7 K/uL (1.3-3.6) Monocytes # (Auto) 0.7 K/uL (0.3-1.0) Eosinophils # (Auto) 0.1 K/uL (0.0-0.5) Basophils # (Auto) 0.1 K/uL (0.0-0.1) Nucleated RBC Absolute Count (auto) 0.00 K/uL Peripheral Blood Smear No Y/N Sodium Level 139 mmol/L (137-145) Potassium Level 4.1 mmol/L (3.5-5.0) Chloride Level 100 mmol/L (98-107) Carbon Dioxide Level 31 mmol/L (22-31) Blood Urea Nitrogen 20 mg/dl (7-18) Creatinine 1.00 mg/dl (0.52-1.04) Glomerular Filtration Rate Calc 57.8 Random Glucose 98 mg/dl (75-110) Calcium Level 9.3 mg/dl (8.4-10.2) Total Bilirubin 0.3 mg/dl (0.2-1.3) Aspartate Amino Transf (AST/SGOT) 15 U/L (0-35) Alanine Aminotransferase (ALT/SGPT) 21 U/L (0-56) Alkaline Phosphatase 63 U/L (0-126) Total Protein 6.3 g/dl (6.3-8.2) Albumin 3.6 g/dl (3.5-5.0) Lipase 90 U/L (23-300) Urine Color Yellow Urine Clarity Clear Urine pH 5.0 pH (4.8-9.5) Urine Specific [place] 1.019 Urine Protein Negative mg/dL (NEGATIVE) Urine Glucose (UA) Negative mg/dL (NEGATIVE) Urine Ketones Negative mg/dL (NEGATIVE) Urine Blood Negative (NEGATIVE) Urine Nitrite Negative (NEGATIVE) Urine Bilirubin Negative (NEGATIVE) Urine Urobilinogen Negative mg/dL (0.2-1.9) Urine Leukocyte Esterase Negative (NEGATIVE) Urine RBC None /HPF (0-2/HPF) Urine WBC <1 /HPF (0-5/HPF) Urine Squamous Epithelial Cells Many /LPF (</=FEW) Urine Bacteria Negative /HPF (NONE-FEW) Urine Mucus None /HPF (NONE-FEW) Urine HCG, Qualitative Negative (NEGATIVE) Chemistry Test 01/12/18 07:52 01/12/18 07:55 White Blood Count 7.2 k/uL (4.5-11.0) Red Blood Count 4.37 M/uL (4.17-5.56) Hemoglobin 14.0 g/dL (12.0-16.0) Hematocrit 41.6 % (34.0-47.0) Mean Corpuscular Volume 95.1 fL (80.0-96.0) Mean Corpuscular Hemoglobin 32.0 pg (26.0-33.0) Mean Corpuscular Hemoglobin Concent 33.6 g/dL (32.0-36.0) Red Cell Distribution Width 12.5 % (11.5-14.5) Platelet Count 191 K/uL (150-450) Mean Platelet Volume 9.6 fL (7.2-11.1) Neutrophils (%) (Auto) 63.1 % (39.4-72.5) Lymphocytes (%) (Auto) 24.4 % (17.6-49.6) Monocytes (%) (Auto) 10.2 % (4.1-12.4) Eosinophils (%) (Auto) 1.4 % (0.4-6.7) Basophils (%) (Auto) 0.9 % (0.3-1.4) Nucleated RBC Relative Count (auto) 0.0 /100WBC Neutrophils # (Auto) 4.5 K/uL (2.0-7.4) Lymphocytes # (Auto) 1.7 K/uL (1.3-3.6) Monocytes # (Auto) 0.7 K/uL (0.3-1.0) Eosinophils # (Auto) 0.1 K/uL (0.0-0.5) Basophils # (Auto) 0.1 K/uL (0.0-0.1) Nucleated RBC Absolute Count (auto) 0.00 K/uL Peripheral Blood Smear No Y/N Glomerular Filtration Rate Calc 57.8 Calcium Level 9.3 mg/dl (8.4-10.2) Total Bilirubin 0.3 mg/dl (0.2-1.3) Aspartate Amino Transf (AST/SGOT) 15 U/L (0-35) Alanine Aminotransferase (ALT/SGPT) 21 U/L (0-56) Alkaline Phosphatase 63 U/L (0-126) Total Protein 6.3 g/dl (6.3-8.2) Albumin 3.6 g/dl (3.5-5.0) Lipase 90 U/L (23-300) Urine Color Yellow Urine Clarity Clear Urine pH 5.0 pH (4.8-9.5) Urine Specific [place] 1.019 Urine Protein Negative mg/dL (NEGATIVE) Urine Glucose (UA) Negative mg/dL (NEGATIVE) Urine Ketones Negative mg/dL (NEGATIVE) Urine Blood Negative (NEGATIVE) Urine Nitrite Negative (NEGATIVE) Urine Bilirubin Negative (NEGATIVE) Urine Urobilinogen Negative mg/dL (0.2-1.9) Urine Leukocyte Esterase Negative (NEGATIVE) Urine RBC None /HPF (0-2/HPF) Urine WBC <1 /HPF (0-5/HPF) Urine Squamous Epithelial Cells Many /LPF (</=FEW) Urine Bacteria Negative /HPF (NONE-FEW) Urine Mucus None /HPF (NONE-FEW) Urine HCG, Qualitative Negative (NEGATIVE) Urinalysis Test 01/12/18 07:55 Urine Color Yellow Urine Clarity Clear Urine pH 5.0 pH (4.8-9.5) Urine Specific [place] 1.019 Urine Protein Negative mg/dL (NEGATIVE) Urine Glucose (UA) Negative mg/dL (NEGATIVE) Urine Ketones Negative mg/dL (NEGATIVE) Urine Blood Negative (NEGATIVE) Urine Nitrite Negative (NEGATIVE) Urine Bilirubin Negative (NEGATIVE) Urine Urobilinogen Negative mg/dL (0.2-1.9) Urine Leukocyte Esterase Negative (NEGATIVE) Urine RBC None /HPF (0-2/HPF) Urine WBC <1 /HPF (0-5/HPF) Urine Squamous Epithelial Cells Many /LPF (</=FEW) Urine Bacteria Negative /HPF (NONE-FEW) Urine Mucus None /HPF (NONE-FEW) Urine HCG, Qualitative Negative (NEGATIVE) (YUDI VALADEZ MD) ED Course/Re-evaluation ED Course I took this patient over as a transfer from Dr. Fran Valadez. The patient feels much improved. Her reexamination is also improved. A CT scan of the abdomen and pelvis shows no acute findings to include appendicitis. The initial source of her abdominal pain is unclear, but could be related to constipation. She can follow-up with her primary care physician. Decision to Disposition Date: Jan 12, 2018 Decision to Disposition Time: 12:11 (YUDI VALADEZ MD) Depart Departure Latest Vital Signs Vital Signs Date Time Temp Pulse Resp B/P (MAP) Pulse Ox O2 Delivery O2 Flow Rate FiO2 01/12/18 08:28 65 97 01/12/18 08:00 134/69 (90) 01/12/18 07:04 98.1 16 Nasal Cannula (YUDI VALADEZ MD) Core Temperature (Celsius): 37.23 (FRAN VALADEZ MD) Impression: Primary Impression: Constipation Condition: Improved Disposition: HOME OR SELF-CARE Referrals: SKINNY EMMANUEL MD (PCP) Patient Instructions: Constipation (ED) Problem Qualifiers Primary Impression: Constipation Constipation type: unspecified constipation type Qualified Codes: K59.00 - Constipation, unspecified FRAN VALADEZ MD Jan 12, 2018 08:20 YUDI VALADEZ MD Jan 12, 2018 12:12
--- NOTE | 2018-01-12 09:55 | RADIOLOGY IMAGING REPORT ---
FACILITY[place] [facility] [place]IENT NAME: Natividad Loaiza : 1965 MR: [id number] V: [id number] EXAM DATE: ORDERING PHYSICIAN: FRAN VALADEZ TECHNOLOGIST: Location: [facility] Patient: Natividad Loaiza : 1965 Visit/Account:[id number] Date of Sevice: 01/12/2018 ABDOMEN/PELVIS WITH CONTRAST HISTORY: Right lower quadrant abdominal pain TECHNIQUE: Axial images were obtained through the abdomen and pelvis with intravenous contrast . Rec joaquim contrast also administered. One of the following dose optimization techniques was utilized in the performance of this exam: automated exposure control; adjustment of the mA and/or kv according to pa tient size; or use of iterative reconstruction technique. Specific details can be referenced in the [facility]'s radiology CT exam operational policy. CONTRAST: 75 cc of [id number] COMPARISON: None. FINDINGS: Visualized lung bases: Negative. Hepatobiliary: Cholecystectomy. Spleen: Negative. Adrenals: Negative. Pancreas: Negative. Kidneys/ureters/bladder: Negative. Bowel/peritoneum/mesentery: Normal appendix. No bowel obstruction, free air or ascites. Focal thicke kalina versus underdistention of the ascending colon. Vessels: Negative. Lymph nodes: Negative. Pelvic genitourinary: Mild enlarged uterus Bones/body wall: Negative. Other findings: None significant IMPRESSION: 1. Normal appendix. No acute inflammatory process within the abdomen or pelvis. 2. Focal thickening versus underdistention of the ascending colon. Recommend colonoscopy if not perfo rmed in the appropriate interval. 2. Mildly enlarged uterus which can be seen with fibroids or adenomyosis. Report Dictated By: Tera Carpenter MD at 01/12/2018 9:43 AM Report E-Signed By: Tera Carpenter MD at 01/12/2018 9:52 AM WSN:[id number]
[2018-01-13] MEDS ORDERED: FLU60VIA41 IM (13:05)
[2018-01-13] MEDS ORDERED: LAC10L PO (13:10)
[2018-01-15] MEDS ORDERED: LAC10L PO (13:47)
== END 2018-01-12 12:45 ==
LOC: ER 07:30
DX: K59.00 Constipation, unspecified (principal)
CPT/HCPCS: 74177; 81001; 81025; 83690; 85025; 99284; Q9967; 82040; 82247; 82310; 82374; 82435; 82565; 82947; 84075; 84132; 84155; 84295; 84450; 84460; 84520

== ENCOUNTER 2018-01-17 13:13 | Emergency (ER) | payer MEDICARE, BC ==
[2015-06-25 12:47] VITALS: Wt 128.8 kg
[~2018-01-17 13:13] MED LIST changes: +FLU60VIA41 IM; +LAC10L PO
--- NOTE | 2018-01-17 13:30 | ER Report ---
History and Physical Time Seen By MD: 13:30 Hx. of Stated Complaint: pt having only "liquid" coming from rectum, no formed stools. fatigued, nauseous and vomiting past 2 days. R SIDE ABDO PAIN RADIATING ACROSS ABDOMEN HPI/ROS CHIEF COMPLAINT: Abdominal pain, constipation HISTORY OF PRESENT ILLNESS: 52-year-old female patient presents to emergency room with complaint of abdominal pain and constipation. Patient states she's been having problems for the past week. She states that she's been seen here numerous times. She states she's had enemas, she is on MiraLAX, she's taking magnesium citrate. She states currently she is passing anything but water. She states that she eats she does have increasing pain in that right upper quadrant. She states that nothing seems to help with that. She states she's been chilled, she denies having any fevers. REVIEW OF SYSTEMS: Respiratory: No cough, no dyspnea. Cardiovascular: No chest pain, no palpitations. Gastrointestinal: As noted above Musculoskeletal: No back pain. Allergies: Coded Allergies: aripiprazole (Verified Allergy, Intermediate, RASH, 01/12/18) lithium (Verified Allergy, Intermediate, RASH, 01/12/18) lurasidone (Verified Allergy, Intermediate, 01/12/18) quetiapine (Verified Allergy, Intermediate, DIZZY, 01/12/18) DIzzy varenicline (Verified Allergy, Intermediate, SWELLING, 01/12/18) ciprofloxacin (Verified Allergy, Mild, N/V, 01/12/18) sulfamethoxazole (Verified Allergy, Mild, HIVES, 01/12/18) topiramate (Verified Allergy, Mild, UPSET STOMACH, 01/12/18) Upset stomach trimethoprim (Verified Allergy, Mild, HIVES, 01/12/18) haloperidol (Verified Adverse Reaction, Severe, DYSTONIC REACTION, 01/12/18) propofol (Verified Adverse Reaction, Severe, HALLUCINATIONS, 01/12/18) PT STATES "I HEARD VOICES TELLING ME TO KILL MYSELF THE NIGHT AFTER I HAD A COLONOSCOPY" amoxicillin (Verified Adverse Reaction, Intermediate, Pruritus , 01/12/18) adhesive tape (Verified Adverse Reaction, Mild, RASH, 01/12/18) fluticasone (Verified Adverse Reaction, Mild, THRUSH, 01/12/18) salmeterol (Verified Adverse Reaction, Mild, THRUSH, 01/12/18) Home Meds Active Scripts Ondansetron (ZOFRAN ODT) 4 Mg Tab.rapdis, 4 MG PO Q6H PRN for NAUSEA/VOMITING, #20 TAB.HUSSEIN Prov:NINA GORDON BASTER HAND 01/17/18 Lactulose (LACTULOSE) 20 Gm/30 Ml Soln, 20 GM PO DAILY, #500 ML Prov:SKINNY EMMANUEL MD 01/15/18 Metoprolol Succinate (METOPROLOL SUCCINATE) 50 Mg Tab.er.24h, 1 TAB PO QDAY, #30 TAB Prov:SKINNY EMMANUEL MD 06/10/17 Tiotropium [place] (SPIRIVA) 18 Mcg/Cap Inh, 2 PUFF INH DAILY, #1 INH 11 Refills Prov:SKINNY EMMANUEL MD 05/14/17 Nystatin (NYSTOP) 60 Gm Powder, 1 DONALD TP BID, #1 BOTTLE 0 Refills APPLY TO AFFECTED AREA TWICE A DAY Prov:SKINNY EMMANUEL MD 03/13/17 Reported Medications Oxygen (OXYGEN) Inha, 2 L INH QDAY, L 01/09/18 Budesonide/Formoterol Fumarate (SYMBICORT 80-4.5 MCG INHALER) 10.2 Gm Hf a.aer.ad, 10.2 GM IH BID 12/07/17 Bupropion Hcl (WELLBUTRIN SR) 150 Mg Tablet.er, 150 MG PO QDAY, TAB 11/11/17 Melatonin (MELATONIN) 2.5 Mg Tab.chew, 2.5 MG PO DAILY, TAB.CHEW 11/11/17 Escitalopram Oxalate (ESCITALOPRAM OXALATE) 20 Mg Tablet, 20 MG PO QDAY 11/11/17 Pramipexole Di-Hcl (MIRAPEX) 1 Mg Tablet, 1 MG PO DAILY 11/11/17 Famotidine (FAMOTIDINE) 20 Mg Tablet, 20 MG PO QDAY, TAB 11/11/17 [place]-3/Dha/Epa/Fish Oil (OMEGA-3 FISH OIL 1,000 MG SFGL) 1,000 Mg Capsule, 1000 MG PO BID, CAPSULE 07/06/17 Cholecalciferol (Vitamin D3) (VITAMIN D3) 1,000 Unit Tablet, 1000 UNIT PO QDAY, TAB 06/20/17 Ibuprofen (IBUPROFEN) 200 Mg Tablet, 2 TAB PO Q8H PRN for PAIN, TAB (MOTRIN): TAKE 400 MG EVERY 8 HRS NEEDED FOR PAIN. 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 Patient has surgical history of cholecystectomy, left hand surgery, left shoulder surgery, left small finger amputation, neck surgery, tonsillectomy, left breast biopsy. Reviewed Nurses Notes: Yes Hx Smoking: Yes Smoking Status: Current: Every Day Smoker Exposure to Second Hand Smoke?: Yes Hx Substance Use Disorder: No Hx Alcohol Use: No Constitutional Vital Sign - Last 24 Hours 01/17/18 01/17/18 01/17/18 01/17/18 13:21 13:23 13:28 13:30 Temp 98.3 Pulse 65 63 Resp 16 B/P (MAP) 136/70 136/70 (92) 147/79 (101) Pulse Ox 95 96 O2 Delivery Nasal Cannula 01/17/18 01/17/18 01/17/18 01/17/18 13:43 13:58 14:00 14:13 Pulse ? 58 B/P (MAP) ???/??? (1665) Pulse Ox 89 96 01/17/18 01/17/18 01/17/18 14:28 14:30 14:43 Pulse 55 53 B/P (MAP) 121/72 (88) Pulse Ox 97 97 Physical Exam General Appearance: The patient is alert, has no immediate need for airway protection and no current signs of toxicity. Respiratory: Chest is non tender, lungs are clear to auscultation. Cardiac: regular rate and rhythm Gastrointestinal: Abdomen is soft and tender in the right upper quadrant, no masses, bowel sounds normal. Musculoskeletal: Neck: Neck is supple and non tender. Extremities have full range of motion and are non tender. Skin: No rashes or lesions. DIFFERENTIAL DIAGNOSIS: After history and physical exam differential diagnosis was considered for abdominal pain including but not limited to appendicitis, cholecystitis, gastritis and urinary tract infection. Medical Decision Making Data Points Result Diagram: 01/17/18 1346 01/17/18 1346 Laboratory Hematology Test 01/17/18 13:18 01/17/18 13:46 Urine Color Colorless Urine Clarity Clear Urine pH 7.0 pH (4.8-9.5) Urine Specific [place] 1.002 Urine Protein Negative mg/dL (NEGATIVE) Urine Glucose (UA) Negative mg/dL (NEGATIVE) Urine Ketones Negative mg/dL (NEGATIVE) Urine Blood Negative (NEGATIVE) Urine Nitrite Negative (NEGATIVE) Urine Bilirubin Negative (NEGATIVE) Urine Urobilinogen Negative mg/dL (0.2-1.9) Urine Leukocyte Esterase Negative (NEGATIVE) Urine RBC None /HPF (0-2/HPF) Urine WBC <1 /HPF (0-5/HPF) Urine Squamous Epithelial Cells Many /LPF (</=FEW) Urine Bacteria Few /HPF (NONE-FEW) Urine Mucus None /HPF (NONE-FEW) Red Blood Count 4.40 M/uL (4.17-5.56) Mean Corpuscular Volume 93.2 fL (80.0-96.0) Mean Corpuscular Hemoglobin 32.2 pg (26.0-33.0) Mean Corpuscular Hemoglobin Concent 34.6 g/dL (32.0-36.0) Red Cell Distribution Width 12.1 % (11.5-14.5) Mean Platelet Volume 9.1 fL (7.2-11.1) Neutrophils (%) (Auto) 70.1 % (39.4-72.5) Lymphocytes (%) (Auto) 18.0 % (17.6-49.6) Monocytes (%) (Auto) 9.8 % (4.1-12.4) Eosinophils (%) (Auto) 1.5 % (0.4-6.7) Basophils (%) (Auto) 0.6 % (0.3-1.4) Nucleated RBC Relative Count (auto) 0.0 /100WBC Neutrophils # (Auto) 4.5 K/uL (2.0-7.4) Lymphocytes # (Auto) 1.2 K/uL (1.3-3.6) Monocytes # (Auto) 0.6 K/uL (0.3-1.0) Eosinophils # (Auto) 0.1 K/uL (0.0-0.5) Basophils # (Auto) 0.0 K/uL (0.0-0.1) Nucleated RBC Absolute Count (auto) 0.00 K/uL Sodium Level 136 mmol/L (137-145) Potassium Level 3.8 mmol/L (3.5-5.0) Chloride Level 98 mmol/L (98-107) Carbon Dioxide Level 31 mmol/L (22-31) Blood Urea Nitrogen 12 mg/dl (7-18) Creatinine 1.10 mg/dl (0.52-1.04) Glomerular Filtration Rate Calc 51.8 Random Glucose 97 mg/dl (75-110) Calcium Level 9.1 mg/dl (8.4-10.2) Total Bilirubin 0.4 mg/dl (0.2-1.3) Aspartate Amino Transf (AST/SGOT) 12 U/L (0-35) Alanine Aminotransferase (ALT/SGPT) 22 U/L (0-56) Alkaline Phosphatase 71 U/L (0-126) Total Protein 6.4 g/dl (6.3-8.2) Albumin 3.5 g/dl (3.5-5.0) Chemistry Test 01/17/18 13:18 01/17/18 13:46 Urine Color Colorless Urine Clarity Clear Urine pH 7.0 pH (4.8-9.5) Urine Specific [place] 1.002 Urine Protein Negative mg/dL (NEGATIVE) Urine Glucose (UA) Negative mg/dL (NEGATIVE) Urine Ketones Negative mg/dL (NEGATIVE) Urine Blood Negative (NEGATIVE) Urine Nitrite Negative (NEGATIVE) Urine Bilirubin Negative (NEGATIVE) Urine Urobilinogen Negative mg/dL (0.2-1.9) Urine Leukocyte Esterase Negative (NEGATIVE) Urine RBC None /HPF (0-2/HPF) Urine WBC <1 /HPF (0-5/HPF) Urine Squamous Epithelial Cells Many /LPF (</=FEW) Urine Bacteria Few /HPF (NONE-FEW) Urine Mucus None /HPF (NONE-FEW) White Blood Count 6.5 k/uL (4.5-11.0) Red Blood Count 4.40 M/uL (4.17-5.56) Hemoglobin 14.2 g/dL (12.0-16.0) Hematocrit 41.0 % (34.0-47.0) Mean Corpuscular Volume 93.2 fL (80.0-96.0) Mean Corpuscular Hemoglobin 32.2 pg (26.0-33.0) Mean Corpuscular Hemoglobin Concent 34.6 g/dL (32.0-36.0) Red Cell Distribution Width 12.1 % (11.5-14.5) Platelet Count 183 K/uL (150-450) Mean Platelet Volume 9.1 fL (7.2-11.1) Neutrophils (%) (Auto) 70.1 % (39.4-72.5) Lymphocytes (%) (Auto) 18.0 % (17.6-49.6) Monocytes (%) (Auto) 9.8 % (4.1-12.4) Eosinophils (%) (Auto) 1.5 % (0.4-6.7) Basophils (%) (Auto) 0.6 % (0.3-1.4) Nucleated RBC Relative Count (auto) 0.0 /100WBC Neutrophils # (Auto) 4.5 K/uL (2.0-7.4) Lymphocytes # (Auto) 1.2 K/uL (1.3-3.6) Monocytes # (Auto) 0.6 K/uL (0.3-1.0) Eosinophils # (Auto) 0.1 K/uL (0.0-0.5) Basophils # (Auto) 0.0 K/uL (0.0-0.1) Nucleated RBC Absolute Count (auto) 0.00 K/uL Glomerular Filtration Rate Calc 51.8 Calcium Level 9.1 mg/dl (8.4-10.2) Total Bilirubin 0.4 mg/dl (0.2-1.3) Aspartate Amino Transf (AST/SGOT) 12 U/L (0-35) Alanine Aminotransferase (ALT/SGPT) 22 U/L (0-56) Alkaline Phosphatase 71 U/L (0-126) Total Protein 6.4 g/dl (6.3-8.2) Albumin 3.5 g/dl (3.5-5.0) Urinalysis Test 01/17/18 13:18 Urine Color Colorless Urine Clarity Clear Urine pH 7.0 pH (4.8-9.5) Urine Specific [place] 1.002 Urine Protein Negative mg/dL (NEGATIVE) Urine Glucose (UA) Negative mg/dL (NEGATIVE) Urine Ketones Negative mg/dL (NEGATIVE) Urine Blood Negative (NEGATIVE) Urine Nitrite Negative (NEGATIVE) Urine Bilirubin Negative (NEGATIVE) Urine Urobilinogen Negative mg/dL (0.2-1.9) Urine Leukocyte Esterase Negative (NEGATIVE) Urine RBC None /HPF (0-2/HPF) Urine WBC <1 /HPF (0-5/HPF) Urine Squamous Epithelial Cells Many /LPF (</=FEW) Urine Bacteria Few /HPF (NONE-FEW) Urine Mucus None /HPF (NONE-FEW) EKG/Imaging Imaging KUB SINGLE VIEW ABDOMEN Indication: abdominal pain, constipation Comparison: 01/12/2018 CT scan Findings: Lung bases are clear. Presumed cholecystectomy. Normal-appearing gas pattern of the colon. No gas seen in the small bowel. No pathologic calcifications. Osseous structures appear unremarkable. Impression: 1. No findings of constipation. Of note, oral contrast administered 01/12/2018 has been cleared from the colon. Report Dictated By: Gilberto Garcia MD at 01/17/2018 2:22 PM Report E-Signed By: Gilberto Garcia MD at 01/17/2018 2:24 PM ED Course/Re-evaluation ED Course She was admitted to exam room, history and physical were obtained. Differential diagnoses were considered. Examination lungs are clear, heart is regular, abdomen soft and tender. A CBC, CMP, urinalysis, KUB x-ray were done. Lab results were unremarkable. X-ray showed resolution of the constipation. I discussed the findings with the patient. I believe that the patient may have like a viral gastritis. We will go ahead and put her on a clear liquid diet and have her follow-up Dr. swain in the next week. Discusses patient who verbalized understanding and agreement with plan. Decision to Disposition Date: Jan 17, 2018 Decision to Disposition Time: 14:51 Depart Departure Latest Vital Signs Vital Signs Date Time Temp Pulse Resp B/P (MAP) Pulse Ox O2 Delivery O2 Flow Rate FiO2 01/17/18 14:43 53 97 01/17/18 14:30 121/72 (88) 01/17/18 13:21 98.3 16 Nasal Cannula Core Temperature (Celsius): 37.23 Impression: Primary Impression: Abdominal pain Condition: Improved Disposition: HOME OR SELF-CARE Referrals: SKINNY EMMANUEL MD (PCP) New Scripts Ondansetron (ZOFRAN ODT) 4 Mg Tab.rapdis 4 MG PO Q6H PRN for NAUSEA/VOMITING, #20 TAB.HUSSEIN Prov: NINA GORDON 01/17/18 Patient Instructions: Abdominal Pain (ED) Additional Instructions: Increase fluid intake. Clear liquid diet for the next 24-48 hours. After that you may advance diet as tolerated starting with complex carbohydrates; rice, bread or pasta. Follow up with your primary care provider in the next week, call tomorrow to make an appointment. Return to the ER if condition worsens. Problem Qualifiers Primary Impression: Abdominal pain Abdominal location: right upper quadrant Qualified Codes: R10.11 - Right upper quadrant pain NINA GORDON Jan 17, 2018 13:30
[2018-01-17 13:53] LABS: PLATELET COUNT, AUTOMATED 183 K/uL (150-450)
--- NOTE | 2018-01-17 14:28 | RADIOLOGY IMAGING REPORT ---
FACILITY: [facility] - [place] PATIENT NAME: Natividad Loaiza : 1965 MR: [id number] V: [id number] EXAM DATE: ORDERING PHYSICIAN: NINA GORDON TECHNOLOGIST: Location: [facility] - [place] Patient: Natividad Loaiza : 1965 Visit/Account:[id number] Date of Sevice: 01/17/2018 KUB SINGLE VIEW ABDOMEN Indication: abdominal pain, constipation Comparison: 01/12/2018 CT scan Findings: Lung bases are clear. Presumed cholecystectomy. Normal-appearing gas pattern of the colon. No gas seen in the small bowel. No pathologic calcifications. Osseous structures appear unremarkable. Impression: 1. No findings of constipation. Of note, oral contrast administered 01/12/2018 has been cleared from t he colon. Report Dictated By: Gilberto Garcia MD at 01/17/2018 2:22 PM Report E-Signed By: Gilberto Garcia MD at 01/17/2018 2:24 PM WSN:[id number]
[2018-01-17 14:30] VITALS: BP 121/72
[2018-01-17] MEDS ORDERED: ONDA4TAB PO (14:51)
== END 2018-01-17 15:07 | disposition home or self-care (01) ==
LOC: ER 13:35
DX: R10.11 Right upper quadrant pain (principal)
CPT/HCPCS: 74018; 81001; 82040; 82247; 82310; 82374; 82435; 82565; 82947; 84075; 84132; 84155; 84295; 84450; 84460; 84520; 85025; 99283

== ENCOUNTER → 2018-01-21 | Outpatient (CLI) | payer MEDICARE, BC ==
[2015-06-25 12:47] VITALS: BMI 43.0
== END ==
LOC: RESP 02:12
PROVIDERS: ATTEND Emergency Medicine
DX: Z02.9 Encounter for administrative examinations, unspecified (principal)
CPT/HCPCS: 94060; 94726; 94729

== ENCOUNTER → 2018-01-25 | Outpatient (CLI) | payer MEDICARE, BC ==
[2015-06-25 12:47] VITALS: BMI 43.0
== END ==
LOC: RESP 06:39
PROVIDERS: ATTEND Emergency Medicine
DX: J98.4 Other disorders of lung (principal)
CPT/HCPCS: 94060; 94726; 94729

== ENCOUNTER 2018-02-14 03:06 | Emergency (ER) | payer MEDICARE, BC ==
[2015-06-25 12:47] VITALS: Wt 124.7 kg
[~2018-02-14 03:06] MED LIST changes: -DILT120C18 PO; -MECL25TA9 PO; -MONT10TA PO
--- NOTE | 2018-02-14 03:32 | ER Report ---
History and Physical Time Seen By MD: 03:32 Hx. of Stated Complaint: patient states she started having right upper quadrant pain that radiates to her lower abdomen. patient denies any constipation, diarrhea, nausea and vomiting. HPI/ROS CHIEF COMPLAINT: abdominal pain HISTORY OF PRESENT ILLNESS: This is a 52 year old female. She is having right sided abdominal pain, mainly lower abdomen. Started tonight. Worse with m ovement. Normal bowels, although chronic constipation. She is eating prunes and this has helped. Normal urination. NO fevers or chills. No shortness of breath or chest pain. Allergies: Coded Allergies: aripiprazole (Verified Allergy, Intermediate, RASH, 02/14/18) lithium (Verified Allergy, Intermediate, RASH, 02/14/18) lurasidone (Verified Allergy, Intermediate, 02/14/18) quetiapine (Verified Allergy, Intermediate, DIZZY, 02/14/18) DIzzy varenicline (Verified Allergy, Intermediate, SWELLING, 02/14/18) ciprofloxacin (Verified Allergy, Mild, N/V, 02/14/18) sulfamethoxazole (Verified Allergy, Mild, HIVES, 02/14/18) topiramate (Verified Allergy, Mild, UPSET STOMACH, 02/14/18) Upset stomach trimethoprim (Verified Allergy, Mild, HIVES, 02/14/18) haloperidol (Verified Adverse Reaction, Severe, DYSTONIC REACTION, 02/14/18) propofol (Verified Adverse Reaction, Severe, HALLUCINATIONS, 02/14/18) PT STATES "I HEARD VOICES TELLING ME TO KILL MYSELF THE NIGHT AFTER I HAD A COLONOSCOPY" amoxicillin (Verified Adverse Reaction, Intermediate, Pruritus , 02/14/18) adhesive tape (Verified Adverse Reaction, Mild, RASH, 02/14/18) fluticasone (Verified Adverse Reaction, Mild, THRUSH, 02/14/18) salmeterol (Verified Adverse Reaction, Mild, THRUSH, 02/14/18) Home Meds Active Scripts Esomeprazole Magnesium (NEXIUM) 40 Mg Capsule.dr, 1 CAP PO QDAY, #30 CAP Prov:SKINNY EMMANUEL MD 02/01/18 Lactulose (LACTULOSE) 20 Gm/30 Ml Soln, 20 GM PO DAILY, #500 ML Prov:SKINNY EMMANUEL MD 01/15/18 Metoprolol Succinate (METOPROLOL SUCCINATE) 50 Mg Tab.er.24h, 1 TAB PO QDAY, #30 TAB Prov:SKINNY EMMANUEL MD 06/10/17 Tiotropium [place] (SPIRIVA) 18 Mcg/Cap Inh, 2 PUFF INH DAILY, #1 INH 11 Refills Prov:SKINNY EMMANUEL MD 05/14/17 Nystatin (NYSTOP) 60 Gm Powder, 1 DONALD TP BID, #1 BOTTLE 0 Refills APPLY TO AFFECTED AREA TWICE A DAY Prov:SKINNY EMMANUEL MD 03/13/17 Reported Medications Oxygen (OXYGEN) Inha, 2 L INH QDAY, L 01/09/18 Budesonide/Formoterol Fumarate (SYMBICORT 80-4.5 MCG INHALER) 10.2 Gm Hfa.aer.ad, 10.2 GM IH BID 12/07/17 Bupropion Hcl (WELLBUTRIN SR) 150 Mg Tablet.er, 150 MG PO QDAY, TAB 11/11/17 Melatonin (MELATONIN) 2.5 Mg Tab.chew, 2.5 MG PO DAILY, TAB.CHEW 11/11/17 Escitalopram Oxalate (ESCITALOPRAM OXALATE) 20 Mg Tablet, 20 MG PO QDAY 11/11/17 Pramipexole Di-Hcl (MIRAPEX) 1 Mg Tablet, 1 MG PO DAILY 11/11/17 Famotidine (FAMOTIDINE) 20 Mg Tablet, 20 MG PO QDAY, TAB 11/11/17 [place]-3/Dha/Epa/Fish Oil (OMEGA-3 FISH OIL 1,000 MG SFGL) 1,000 Mg Capsule, 1000 MG PO BID, CAPSULE 07/06/17 Cholecalciferol (Vitamin D3) (VITAMIN D3) 1,000 Unit Tablet, 1000 UNIT PO QDAY, TAB 06/20/17 Ibuprofen (IBUPROFEN) 200 Mg Tablet, 2 TAB PO Q8H PRN for PAIN, TAB (MOTRIN): TAKE 400 MG EVERY 8 HRS NEEDED FOR PAIN. 02/03/17 Hydroxyzine Pamoate (HYDROXYZINE PAMOATE) 25 Mg Capsule, 25 TAB PO Q8H PRN for ANXIETY/INSOMNIA 01/27/17 Albuterol Sulfate 90 Mcg/Act (PROAIR HFA 90 MCG/ACT) 8.5 Gm Hfa.aer.ad, 2 PUFF IH Q4-6H PRN for DYSPNEA, INHALER 01/27/17 Multivitamin (MULTIVITAMINS) 1 Each Capsule, 1 EACH PO DAILY, CAPSULE 12/08/16 Discontinued Scripts Ondansetron (ZOFRAN ODT) 4 Mg Tab.rapdis, 4 MG PO Q6H PRN for NAUSEA/VOMITING, #20 TAB.HUSSEIN Prov:NINA GORDON [employer] 01/17/18 Reviewed Nurses Notes: Yes Hx Smoking: Yes Smoking Status: Current: Every Day Smoker Exposure to Second Hand Smoke?: Yes Hx Substance Use Disorder: No Hx Alcohol Use: No Constitutional Vital Sign - Last 24 Hours 02/14/18 02/14/18 02/14/18 02/14/18 03:09 03:21 03:30 03:36 Temp 97.8 Pulse 72 69 67 Resp 24 B/P (MAP) 138/106 142/69 (93) Pulse Ox 93 96 97 O2 Delivery Nasal Cannula 02/14/18 02/14/18 02/14/18 02/14/18 03:51 04:00 04:06 04:38 Pulse 76 63 B/P (MAP) 120/76 (91) 135/58 (83) Pulse Ox 95 95 02/14/18 02/14/18 02/14/18 02/14/18 05:00 05:05 05:20 05:30 Pulse 71 61 B/P (MAP) 142/70 (94) 123/70 (87) Pulse Ox 97 97 Physical Exam General Appearance: The patient is alert. No acute distress. Eyes: Pupils are equal, round. No pallor, injection or icterus. ENT: Mucous membranes are moist. Normal oral mucosa. Posterior oropharynx is normal. Respiratory: Lungs are clear to auscultation. Cardiovascular: Regular rate and rhythm. No murmurs, gallops or rubs. Normal capillary refill. Gastrointestinal: Abdomen is soft, tender in right side, more in rlq. Nondistended. Guarding, but no rebound. No masses or organomegaly. Normal active bowel sounds. No costovertebral angle tenderness with percussion. Neurological: Alert and oriented x3. No focal neurologic deficits Skin: Warm and dry. Musculoskeletal: Extremities are nontender. No tenderness in palpation of the cervical, thoracic and lumbar spine. DIFFERENTIAL DIAGNOSIS: After history and physical exam, differential diagnosis was considered for abdominal pain including but not limited to appendicitis, colitis, gastritis and urinary tract infection. Medical Decision Making Data Points Result Diagram: 02/14/18 0000 02/14/18 0000 Laboratory Hematology Test 02/14/18 00:00 02/14/18 03:16 02/14/18 04:35 Red Blood Count 4.27 M/uL (4.17-5.56) Mean Corpuscular Volume 92.6 fL (80.0-96.0) Mean Corpuscular Hemoglobin 31.7 pg (26.0-33.0) Mean Corpuscular Hemoglobin Concent 34.2 g/dL (32.0-36.0) Red Cell Distribution Width 12.2 % (11.5-14.5) Mean Platelet Volume 9.5 fL (7.2-11.1) Neutrophils (%) (Auto) 62.3 % (39.4-72.5) Lymphocytes (%) (Auto) 25.4 % (17.6-49.6) Monocytes (%) (Auto) 9.9 % (4.1-12.4) Eosinophils (%) (Auto) 1.8 % (0.4-6.7) Basophils (%) (Auto) 0.6 % (0.3-1.4) Nucleated RBC Relative Count (auto) 0.0 /100WBC Neutrophils # (Auto) 4.3 K/uL (2.0-7.4) Lymphocytes # (Auto) 1.7 K/uL (1.3-3.6) Monocytes # (Auto) 0.7 K/uL (0.3-1.0) Eosinophils # (Auto) 0.1 K/uL (0.0-0.5) Basophils # (Auto) 0.0 K/uL (0.0-0.1) Nucleated RBC Absolute Count (auto) 0.00 K/uL Sodium Level 137 mmol/L (137-145) Potassium Level 3.9 mmol/L (3.5-5.0) Chloride Level 100 mmol/L (98-107) Carbon Dioxide Level 29 mmol/L (22-31) Blood Urea Nitrogen 22 mg/dl (7-18) Creatinine 1.20 mg/dl (0.52-1.04) Glomerular Filtration Rate Calc 46.8 Random Glucose 114 mg/dl (75-110) Calcium Level 9.7 mg/dl (8.4-10.2) Total Bilirubin 0.2 mg/dl (0.2-1.3) Aspartate Amino Transf (AST/SGOT) 21 U/L (0-35) Alanine Aminotransferase (ALT/SGPT) 23 U/L (0-56) Alkaline Phosphatase 78 U/L (0-126) Total Protein 6.9 g/dl (6.3-8.2) Albumin 3.9 g/dl (3.5-5.0) Amylase Level < 30 U/L (0-110) Lipase 135 U/L (23-300) Urine Color Yellow Urine Clarity Clear Urine pH 5.0 pH (4.8-9.5) Urine Specific [place] 1.021 Urine Protein Negative mg/dL (NEGATIVE) Urine Glucose (UA) Negative mg/dL (NEGATIVE) Urine Ketones Negative mg/dL (NEGATIVE) Urine Blood Negative (NEGATIVE) Urine Nitrite Negative (NEGATIVE) Urine Bilirubin Negative (NEGATIVE) Urine Urobilinogen Negative mg/dL (0.2-1.9) Urine Leukocyte Esterase Negative (NEGATIVE) Urine RBC <1 /HPF (0-2/HPF) Urine WBC <1 /HPF (0-5/HPF) Urine Squamous Epithelial Cells Many /LPF (</=FEW) Urine Bacteria Few /HPF (NONE-FEW) Urine Mucus None /HPF (NONE-FEW) Chemistry Test 02/14/18 00:00 02/14/18 03:16 02/14/18 04:35 White Blood Count 6.9 k/uL (4.5-11.0) Red Blood Count 4.27 M/uL (4.17-5.56) Hemoglobin 13.5 g/dL (12.0-16.0) Hematocrit 39.5 % (34.0-47.0) Mean Corpuscular Volume 92.6 fL (80.0-96.0) Mean Corpuscular Hemoglobin 31.7 pg (26.0-33.0) Mean Corpuscular Hemoglobin Concent 34.2 g/dL (32.0-36.0) Red Cell Distribution Width 12.2 % (11.5-14.5) Platelet Count 200 K/uL (150-450) Mean Platelet Volume 9.5 fL (7.2-11.1) Neutrophils (%) (Auto) 62.3 % (39.4-72.5) Lymphocytes (%) (Auto) 25.4 % (17.6-49.6) Monocytes (%) (Auto) 9.9 % (4.1-12.4) Eosinophils (%) (Auto) 1.8 % (0.4-6.7) Basophils (%) (Auto) 0.6 % (0.3-1.4) Nucleated RBC Relative Count (auto) 0.0 /100WBC Neutrophils # (Auto) 4.3 K/uL (2.0-7.4) Lymphocytes # (Auto) 1.7 K/uL (1.3-3.6) Monocytes # (Auto) 0.7 K/uL (0.3-1.0) Eosinophils # (Auto) 0.1 K/uL (0.0-0.5) Basophils # (Auto) 0.0 K/uL (0.0-0.1) Nucleated RBC Absolute Count (auto) 0.00 K/uL Glomerular Filtration Rate Calc 46.8 Calcium Level 9.7 mg/dl (8.4-10.2) Total Bilirubin 0.2 mg/dl (0.2-1.3) Aspartate Amino Transf (AST/SGOT) 21 U/L (0-35) Alanine Aminotransferase (ALT/SGPT) 23 U/L (0-56) Alkaline Phosphatase 78 U/L (0-126) Total Protein 6.9 g/dl (6.3-8.2) Albumin 3.9 g/dl (3.5-5.0) Amylase Level < 30 U/L (0-110) Lipase 135 U/L (23-300) Urine Color Yellow Urine Clarity Clear Urine pH 5.0 pH (4.8-9.5) Urine Specific [place] 1.021 Urine Protein Negative mg/dL (NEGATIVE) Urine Glucose (UA) Negative mg/dL (NEGATIVE) Urine Ketones Negative mg/dL (NEGATIVE) Urine Blood Negative (NEGATIVE) Urine Nitrite Negative (NEGATIVE) Urine Bilirubin Negative (NEGATIVE) Urine Urobilinogen Negative mg/dL (0.2-1.9) Urine Leukocyte Esterase Negative (NEGATIVE) Urine RBC <1 /HPF (0-2/HPF) Urine WBC <1 /HPF (0-5/HPF) Urine Squamous Epithelial Cells Many /LPF (</=FEW) Urine Bacteria Few /HPF (NONE-FEW) Urine Mucus None /HPF (NONE-FEW) Urinalysis Test 02/14/18 04:35 Urine Color Yellow Urine Clarity Clear Urine pH 5.0 pH (4.8-9.5) Urine Specific [place] 1.021 Urine Protein Negative mg/dL (NEGATIVE) Urine Glucose (UA) Negative mg/dL (NEGATIVE) Urine Ketones Negative mg/dL (NEGATIVE) Urine Blood Negative (NEGATIVE) Urine Nitrite Negative (NEGATIVE) Urine Bilirubin Negative (NEGATIVE) Urine Urobilinogen Negative mg/dL (0.2-1.9) Urine Leukocyte Esterase Negative (NEGATIVE) Urine RBC <1 /HPF (0-2/HPF) Urine WBC <1 /HPF (0-5/HPF) Urine Squamous Epithelial Cells Many /LPF (</=FEW) Urine Bacteria Few /HPF (NONE-FEW) Urine Mucus None /HPF (NONE-FEW) EKG/Imaging Imaging COMPUTED TOMOGRAPHY ABDOMEN AND PELVIS WITH INTRAVENOUS CONTRAST DATE OF EXAM: 02/14/2018 3:36 AM INDICATION: Right-sided abdominal pain. COMPARISON: Abdomen radiographs 01/17/2018, CT abdomen and pelvis 01/12/2018. TECHNIQUE: Contrast enhanced abdomen and pelvis CT performed during the injection of 75 ml of Isovue 370. Sagittal and coronal reconstructions were performed. One of the following dose optimization techniques was utilized in the performance of this exam: Automated exposure control; adjustment of the mA and/or kV according to the patient's size; or use of an iterative reconstruction technique. Specific details can be referenced in the facility's radiology CT exam operational policy. FINDINGS: Lung bases: Minimal scarring/atelectasis. Liver and hepatic vasculature: Normal. Gallbladder and bile ducts: Cholecystectomy. Spleen: Normal. Pancreas: Normal. Adrenals: Normal. Kidneys, ureters and bladder: No acute abnormality or suspicious lesion. Symmetric mild perinephric fat stranding is likely chronic. 1.2 cm exophytic cyst on the right, image 47 series 2. Retroperitoneum and aorta: Normal caliber aorta with mild atherosclerosis. GI tract, mesentery and peritoneum: Nonacute. Normal appendix. Uterus and adnexa: Unchanged enlargement of the uterus which again may be due to leiomyomas and/or adenomyosis.. Bones and soft tissues: No acute abnormality or suspicious lesion. Moderate d egenerative changes in the lower thoracic/upper lumbar spine similar to prior. IMPRESSION: No apparent acute abnormality or significant change. Nonacute findings as described. Report Dictated By: Ramiro Rehman MD at 02/14/2018 4:50 AM ED Course/Re-evaluation Clinical Indication for ER IV: Hydration, IV Access ED Course Initially given some morphine and Zofran as well as fluids. CT scan labs unremarkable. Patient does feel better. Discussed results and she will return home at this time. Decision to Disposition Date: Feb 14, 2018 Decision to Disposition Time: 05:28 Depart Departure Latest Vital Signs Vital Signs Date Time Temp Pulse Resp B/P (MAP) Pulse Ox O2 Delivery O2 Flow Rate FiO2 02/14/18 05:30 123/70 (87) 02/14/18 05:20 61 97 02/14/18 03:09 97.8 24 Nasal Cannula Core Temperature (Celsius): 37.23 Impression: Primary Impression: Abdominal pain Condition: Improved Disposition: HOME OR SELF-CARE Referrals: SKINNY EMMANUEL MD (PCP) Patient Instructions: Acute Abdominal Pain (ED) Additional Instructions: No findings for the cause of acute abdominal pain, labs and imaging negative. Use Tylenol or Ibuprofen as needed for pain. Problem Qualifiers Primary Impression: Abdominal pain Abdominal location: right lower quadrant Qualified Codes: R10.31 - Right lower quadrant pain GARY RODRIGUEZ MD Feb 14, 2018 03:32
[2018-02-14 03:33] LABS: PLATELET COUNT, AUTOMATED 200 K/uL (150-450)
[2018-02-14] MEDS ORDERED: MORPHINE 4 MG/ML SDV IVP ONE (03:40)
[2018-02-14] MEDS ORDERED: ONDANSETRON 4 MG/2 ML VIAL IVP ONE (03:40)
[2018-02-14] MEDS ORDERED: IOPAMIDOL 76% 75 ML INFUS BTL 75 ML ONE (04:00)
--- NOTE | 2018-02-14 05:01 | RADIOLOGY IMAGING REPORT ---
FACILITY: [facility] PATIENT NAME: Natividad Loaiza : 1965 MR: [id number] V: [id number] EXAM DATE: ORDERING PHYSICIAN: GARY RODRIGUEZ TECHNOLOGIST: Location: [facility] [place] Patient: Natividad Loaiza : 1965 Visit/Account:[id number] Date of Sevice: 02/14/2018 COMPUTED TOMOGRAPHY ABDOMEN AND PELVIS WITH INTRAVENOUS CONTRAST DATE OF EXAM: 02/14/2018 3:36 AM INDICATION: Right-sided abdominal pain. COMPARISON: Abdomen radiographs 01/17/2018, CT abdomen and pelvis 01/12/2018. TECHNIQUE: Contrast enhanced abdomen and pelvis CT performed during the injection of 75 ml of Isovue 370. Sagittal and coronal reconstructions were performed. One of the following dose optimization te chniques was utilized in the performance of this exam: Automated exposure control; adjustment of the mA and/or kV according to the patient's size; or use of an iterative reconstruction technique. Spec [facility] details can be referenced in the facility's radiology CT exam operational policy. FINDINGS: Lung bases: Minimal scarring/atelectasis. Liver and hepatic vasculature: Normal. Gallbladder and bile ducts: Cholecystectomy. Spleen: Normal. Pancreas: Normal. Adrenals: Normal. Kidneys, ureters and bladder: No acute abnormality or suspicious lesion. Symmetric mild perinephric fat stranding is likely chronic. 1.2 cm exophytic cyst on the right, image 47 series 2. Retroperitoneum and aorta: Normal caliber aorta with mild atherosclerosis. GI tract, mesentery and peritoneum: Nonacute. Normal appendix. Uterus and adnexa: Unchanged enlargement of the uterus which again may be due to leiomyomas and/or ad enomyosis.. Bones and soft tissues: No acute abnormality or suspicious lesion. Moderate degenerative changes in the lower thoracic/upper lumbar spine similar to prior. IMPRESSION: No apparent acute abnormality or significant change. Nonacute findings as described. Report Dictated By: Ramiro Rehman MD at 02/14/2018 4:50 AM Report E-Signed By: Ramiro Rehman MD at 02/14/2018 4:57 AM WSN:[id number]
[2018-02-14 05:30] VITALS: BP 123/70
== END 2018-02-14 05:44 | disposition home or self-care (01) ==
LOC: ER 03:35
DX: R10.31 Right lower quadrant pain (principal)
CPT/HCPCS: 74177; 81001; 82150; 83690; 85025; 96374; 96375; 99284; J2270; J2405; Q9967; 82040; 82247; 82310; 82374; 82435; 82565; 82947; 84075; 84132; 84155; 84295; 84450; 84460; 84520

== ENCOUNTER → 2018-02-14 | Outpatient (CLI) | payer MEDICARE, BC ==
[~2018-02-14] MED LIST changes: +DILT120C18 PO; +ESOM40CA42 PO; +MECL25TA9 PO; +MONT10TA PO
[2018-02-24 07:39] VITALS: BMI 49.8
== END ==
LOC: AMB 02:43
PROVIDERS: ATTEND Nurse Practitioner
DX: R10.31 Right lower quadrant pain (principal); R10.11 Right upper quadrant pain
CPT/HCPCS: A0425; A0427

== ENCOUNTER 2018-02-16 22:51 | Emergency (ER) | payer MEDICARE, BC ==
[2015-06-25 12:47] VITALS: BMI 43.0
[2018-02-16 22:55] VITALS: BP 148/84
--- NOTE | 2018-02-16 23:02 | ER Report ---
History and Physical Time Seen By MD: 23:02 Hx. of Stated Complaint: sob; hard time breathing; did home neb and did not work HPI/ROS CHIEF COMPLAINT: short of breath HISTORY OF PRESENT ILLNESS: This is a 52 year old female. She has been having cold symptoms for about a week now. Runny nose worsening with drainage over the last two days. Over two days starting to feel short of breath, worse tonight. Took albuterol inhaler and did a nebulizer treatment without relief. No chest pain. No fevers. Mild cough. On chronic oxygen. No nausea. Poor appetite with less intake today. Allergies: Coded Allergies: aripiprazole (Verified Allergy, Intermediate, RASH, 02/16/18) lithium (Verified Allergy, Intermediate, RASH, 02/16/18) lurasidone (Verified Allergy, Intermediate, 02/16/18) quetiapine (Verified Allergy, Intermediate, DIZZY, 02/16/18) DIzzy varenicline (Verified Allergy, Intermediate, SWELLING, 02/16/18) ciprofloxacin (Verified Allergy, Mild, N/V, 02/16/18) sulfamethoxazole (Verified Allergy, Mild, HIVES, 02/16/18) topiramate (Verified Allergy, Mild, UPSET STOMACH, 02/16/18) Upset stomach trimethoprim (Verified Allergy, Mild, HIVES, 02/16/18) haloperidol (Verified Adverse Reaction, Severe, DYSTONIC REACTION, 02/16/18) propofol (Verified Adverse Reaction, Severe, HALLUCINATIONS, 02/16/18) PT STATES "I HEARD VOICES TELLING ME TO KILL MYSELF THE NIGHT AFTER I HAD A COLONOSCOPY" amoxicillin (Verified Adverse Reaction, Intermediate, Pruritus , 02/16/18) adhesive tape (Verified Adverse Reaction, Mild, RASH, 02/16/18) fluticasone (Verified Adverse Reaction, Mild, THRUSH, 02/16/18) salmeterol (Verified Adverse Reaction, Mild, THRUSH, 02/16/18) Home Meds Active Scripts Prednisone (PREDNISONE) 20 Mg Tablet, 60 MG PO QDAY, #12 TAB 0 Refills Prov:GARY RODRIGUEZ MD 02/17/18 Esomeprazole Magnesium (NEXIUM) 40 Mg Capsule.dr, 1 CAP PO QDAY, #30 CAP Prov:SKINNY EMMANUEL MD 02/01/18 Lactulose (LACTULOSE) 20 Gm/30 Ml Soln, 20 GM PO DAILY, #500 ML Prov:SKINNY EMMANUEL MD 01/15/18 Metoprolol Succinate (METOPROLOL SUCCINATE) 50 Mg Tab.er.24h, 1 TAB PO QDAY, #30 TAB Prov:SKINNY EMMANUEL MD 06/10/17 Tiotropium [place] (SPIRIVA) 18 Mcg/Cap Inh, 2 PUFF INH DAILY, #1 INH 11 Refills Prov:SKINNY EMMANUEL MD 05/14/17 Nystatin (NYSTOP) 60 Gm Powder, 1 DONALD TP BID, #1 BOTTLE 0 Refills APPLY TO AFFECTED AREA TWICE A DAY Prov:SKINNY EMMANUEL MD 03/13/17 Reported Medications Oxygen (OXYGEN) Inha, 2 L INH QDAY, L 01/09/18 Budesonide/Formoterol Fumarate (SYMBICORT 80-4.5 MCG INHALER) 10.2 Gm Hfa.aer.ad, 10.2 GM IH BID 12/07/17 Bupropion Hcl (WELLBUTRIN SR) 150 Mg Tablet.er, 150 MG PO QDAY, TAB 11/11/17 Melatonin (MELATONIN) 2.5 Mg Tab.chew, 2.5 MG PO DAILY, TAB.CHEW 11/11/17 Escitalopram Oxalate (ESCITALOPRAM OXALATE) 20 Mg Tablet, 20 MG PO QDAY 11/11/17 Pramipexole Di-Hcl (MIRAPEX) 1 Mg Tablet, 1 MG PO DAILY 11/11/17 Famotidine (FAMOTIDINE) 20 Mg Tablet, 20 MG PO QDAY, TAB 11/11/17 [place]-3/Dha/Epa/Fish Oil (OMEGA-3 FISH OIL 1,000 MG SFGL) 1,000 Mg Capsule, 1000 MG PO BID, CAPSULE 07/06/17 Cholecalciferol (Vitamin D3) (VITAMIN D3) 1,000 Unit Tablet, 1000 UNIT PO QDAY, TAB 06/20/17 Ibuprofen (IBUPROFEN) 200 Mg Tablet, 2 TAB PO Q8H PRN for PAIN, TAB (MOTRIN): TAKE 400 MG EVERY 8 HRS NEEDED FOR PAIN. 02/03/17 Hydroxyzine Pamoate (HYDROXYZINE PAMOATE) 25 Mg Capsule, 25 TAB PO Q8H PRN for ANXIETY/INSOMNIA 01/27/17 Albuterol Sulfate 90 Mcg/Act (PROAIR HFA 90 MCG/ACT) 8.5 Gm Hfa.aer.ad, 2 PUFF IH Q4-6H PRN for DYSPNEA, INHALER 01/27/17 Multivitamin (MULTIVITAMINS) 1 Each Capsule, 1 EACH PO DAILY, CAPSULE 12/08/16 Discontinued Scripts Ondansetron (ZOFRAN ODT) 4 Mg Tab.rapdis, 4 MG PO Q6H PRN for NAUSEA/VOMITING, #20 TAB.HUSSEIN Prov:NINA GORDON MERCHANDISER RETAIL REPRESENTATIVE 01/17/18 Reviewed Nurses Notes: Yes Hx Smoking: Yes Smoking Status: Current: Every Day Smoker Exposure to Second Hand Smoke?: Yes Hx Substance Use Disorder: No Hx Alcohol Use: No Constitutional Vital Sign - Last 24 Hours 02/16/18 02/16/18 02/16/18 02/16/18 22:55 22:55 23:10 23:10 Pulse 75 64 Resp 18 16 B/P (MAP) 148/84 Pulse Ox 95 96 O2 Delivery Nasal Cannula Nasal Cannula O2 Flow Rate 3.0 2.5 02/16/18 23:18 Pulse 64 Resp 16 Physical Exam General Appearance: The patient is alert. No acute distress. Eyes: Pupils are equal, round. Reactive to light. No pallor, injection or icterus. Extraocular movements are intact. ENT: Mucous membranes are moist. Normal oral mucosa. Posterior oropharynx with post nasal drainage. Neck: Supple and non tender. Respiratory: Lungs with rhonchi and expiratory wheezing. There are no retractions or accessory muscle use. Cardiovascular: Regular rate and rhythm. No murmurs, gallops or rubs. Normal capillary refill. Gastrointestinal: Abdomen is soft and non tender. Nondistended. Normal active bowel sounds. Neurological: Alert and oriented x3. Skin: Warm and dry. No rashes. DIFFERENTIAL DIAGNOSIS: After history and physical exam, differential diagnosis was considered for shortness of breath including but not limited to pulmonary infectious process, COPD, asthma, pulmonary embolus and congestive heart failure. Medical Decision Making Data Points Result Diagram: 02/16/188 02/16/188 Laboratory Hematology Test 02/16/18 23:18 Red Blood Count 4.24 M/uL (4.17-5.56) Mean Corpuscular Volume 91.5 fL (80.0-96.0) Mean Corpuscular Hemoglobin 31.4 pg (26.0-33.0) Mean Corpuscular Hemoglobin Concent 34.3 g/dL (32.0-36.0) Red Cell Distribution Width 12.4 % (11.5-14.5) Mean Platelet Volume 9.2 fL (7.2-11.1) Neutrophils (%) (Auto) 63.1 % (39.4-72.5) Lymphocytes (%) (Auto) 26.6 % (17.6-49.6) Monocytes (%) (Auto) 8.1 % (4.1-12.4) Eosinophils (%) (Auto) 1.8 % (0.4-6.7) Basophils (%) (Auto) 0.4 % (0.3-1.4) Nucleated RBC Relative Count (auto) 0.0 /100WBC Neutrophils # (Auto) 4.0 K/uL (2.0-7.4) Lymphocytes # (Auto) 1.7 K/uL (1.3-3.6) Monocytes # (Auto) 0.5 K/uL (0.3-1.0) Eosinophils # (Auto) 0.1 K/uL (0.0-0.5) Basophils # (Auto) 0.0 K/uL (0.0-0.1) Nucleated RBC Absolute Count (auto) 0.00 K/uL Sodium Level 137 mmol/L (137-145) Potassium Level 3.7 mmol/L (3.5-5.0) Chloride Level 101 mmol/L (98-107) Carbon Dioxide Level 31 mmol/L (22-31) Blood Urea Nitrogen 18 mg/dl (7-18) Creatinine 1.10 mg/dl (0.52-1.04) Glomerular Filtration Rate Calc 51.8 Random Glucose 116 mg/dl (75-110) Calcium Level 9.5 mg/dl (8.4-10.2) Total Bilirubin 0.2 mg/dl (0.2-1.3) Aspartate Amino Transf (AST/SGOT) 14 U/L (0-35) Alanine Aminotransferase (ALT/SGPT) 22 U/L (0-56) Alkaline Phosphatase 78 U/L (0-126) Troponin I < 0.012 ng/ml B-Type Natriuretic Peptide 13 pg/ml (0-100) Total Protein 6.5 g/dl (6.3-8.2) Albumin 3.6 g/dl (3.5-5.0) Chemistry Test 02/16/18 23:18 White Blood Count 6.3 k/uL (4.5-11.0) Red Blood Count 4.24 M/uL (4.17-5.56) Hemoglobin 13.3 g/dL (12.0-16.0) Hematocrit 38.8 % (34.0-47.0) Mean Corpuscular Volume 91.5 fL (80.0-96.0) Mean Corpuscular Hemoglobin 31.4 pg (26.0-33.0) Mean Corpuscular Hemoglobin Concent 34.3 g/dL (32.0-36.0) Red Cell Distribution Width 12.4 % (11.5-14.5) Platelet Count 226 K/uL (150-450) Mean Platelet Volume 9.2 fL (7.2-11.1) Neutrophils (%) (Auto) 63.1 % (39.4-72.5) Lymphocytes (%) (Auto) 26.6 % (17.6-49.6) Monocytes (%) (Auto) 8.1 % (4.1-12.4) Eosinophils (%) (Auto) 1.8 % (0.4-6.7) Basophils (%) (Auto) 0.4 % (0.3-1.4) Nucleated RBC Relative Count (auto) 0.0 /100WBC Neutrophils # (Auto) 4.0 K/uL (2.0-7.4) Lymphocytes # (Auto) 1.7 K/uL (1.3-3.6) Monocytes # (Auto) 0.5 K/uL (0.3-1.0) Eosinophils # (Auto) 0.1 K/uL (0.0-0.5) Basophils # (Auto) 0.0 K/uL (0.0-0.1) Nucleated RBC Absolute Count (auto) 0.00 K/uL Glomerular Filtration Rate Calc 51.8 Calcium Level 9.5 mg/dl (8.4-10.2) Total Bilirubin 0.2 mg/dl (0.2-1.3) Aspartate Amino Transf (AST/SGOT) 14 U/L (0-35) Alanine Aminotransferase (ALT/SGPT) 22 U/L (0-56) Alkaline Phosphatase 78 U/L (0-126) Troponin I < 0.012 ng/ml B-Type Natriuretic Peptide 13 pg/ml (0-100) Total Protein 6.5 g/dl (6.3-8.2) Albumin 3.6 g/dl (3.5-5.0) EKG/Imaging EKG Interpretation 12 lead EKG: Rhythm: Sinus rhythm, rate 61 [place]: normal QRS: Cannot rule out anterior infarct, age undetermined ST segments: No ST elevation, no signs of ischemia Imaging TWO VIEW CHEST 02/16/2018 11:07 PM. INDICATION: Shortness of breath. History of COPD. COMPARISON: 01/09/2018. FINDINGS: Lungs are well-expanded. The lungs are clear. No pneumothorax or pleural effusion. Pulmonary vasculature is unremarkable. Heart size is normal. IMPRESSION: No acute cardiopulmonary abnormality. Report Dictated By: Ramior Rehman MD at 02/16/2018 11:50 PM ED Course/Re-evaluation Clinical Indication for ER IV: IV Access ED Course Patient had Solu-Medrol and a breathing treatment. Imaging, EKG and labs unremarkable. Patient does feel a little bit better. She will go home on prednisone for the next 4 days. Decision to Disposition Date: Feb 17, 2018 Decision to Disposition Time: 00:04 Depart Departure Latest Vital Signs Vital Signs Date Time Temp Pulse Resp B/P (MAP) Pulse Ox O2 Delivery O2 Flow Rate FiO2 02/16/18 23:18 64 16 02/16/18 23:10 96 Nasal Cannula 2.5 02/16/18 22:55 148/84 Core Temperature (Celsius): 37.23 Impression: Primary Impression: Upper respiratory infection Additional Impression: COPD exacerbation Condition: Stable Disposition: HOME OR SELF-CARE Referrals: SKINNY EMMANUEL MD (PCP) New Scripts Prednisone (PREDNISONE) 20 Mg Tablet 60 MG PO QDAY, #12 TAB 0 Refills Prov: GARY RODRIGUEZ MD 02/17/18 Patient Instructions: COPD (Chronic Obstructive Pulmonary Disease) (ED), Upper Respiratory Infection (ED) Additional Instructions: Rest and increase fluid intake. Take Prednisone 20mg, 3 tablets once a day for 4 more days. Continue using your oxygen. Continue with your breathing treatments every 4 hours as needed. Problem Qualifiers Primary Impression: Upper respiratory infection URI type: unspecified viral URI Qualified Codes: J06.9 - Acute upper respiratory infection, unspecified GARY RODRIGUEZ MD Feb 16, 2018 23:02
[2018-02-16] MEDS ORDERED: methylPREDNIS SUCC 125 MG/2ML IVP ONE (23:10)
[2018-02-16] MEDS ORDERED: ALBUTEROL/IPRATROPIUM 3 ML NEB NEB ONE (23:10)
[2018-02-16 23:29] LABS: PLATELET COUNT, AUTOMATED 226 K/uL (150-450)
--- NOTE | 2018-02-16 23:29 | EKG ---
FACILITY: [facility] - [place] PATIENT NAME: FLORENCIO CRUZ : [id number] MR: [id number] V: [id number] EXAM DATE: ORDERING PHYSICIAN: GARY RODRIGUEZ TECHNOLOGIST: ANITA Test Reason : SOB Blood Pressure : / mmHG Vent. Rate : 061 BPM Atrial Rate : 061 BPM P-R Int : 142 ms QRS Dur : 074 ms QT Int : 422 ms P-R-T Axes : 043 041 047 degrees QTc Int : 424 ms Normal sinus rhythm Cannot rule out Anterior infarct , age undetermined Abnormal ECG When compared with ECG of 09-JAN-2018 21:00, Minimal criteria for Anterior infarct are now present Nonspecific T wave abnormality now evident in Anterior leads Confirmed by TIFFANIE MASSEY ([id number]) on 02/17/2018 4:04:04 AM Referred By: Confirmed By:TIFFANIE MASSEY
--- NOTE | 2018-02-16 23:55 | RADIOLOGY IMAGING REPORT ---
FACILITY: [facility] PATIENT NAME: Natividad Loaiza : 1965 MR: [id number] V: [id number] EXAM DATE: ORDERING PHYSICIAN: GARY RODRIGUEZ TECHNOLOGIST: Location: [facility] - [place] Patient: Natividad Loaiza : 1965 Visit/Account:[id number] Date of Sevice: 02/16/2018 TWO VIEW CHEST 02/16/2018 11:07 PM. INDICATION: Shortness of breath. History of COPD. COMPARISON: 01/09/2018. FINDINGS: Lungs are well-expanded. The lungs are clear. No pneumothorax or pleural effusion. Pulmo nary vasculature is unremarkable. Heart size is normal. IMPRESSION: No acute cardiopulmonary abnormality. Report Dictated By: Ramiro Rehman MD at 02/16/2018 11:50 PM Report E-Signed By: Ramiro Rehman MD at 02/16/2018 11:52 PM WSN:[id number]
[2018-02-17] MEDS ORDERED: predniSONE 20 MG TAB PO ONE (00:05)
[2018-02-17] MEDS ORDERED: PRED20TA6 PO (00:06)
[2018-02-18] MEDS ORDERED: PRED-1 PO (15:18)
[2018-02-18] MEDS ORDERED: AZIT-1 PO (15:18)
[2018-02-18] MEDS ORDERED: IPRA3AMP10 IH (16:38)
== END 2018-02-17 00:25 | disposition home or self-care (01) ==
LOC: ER 23:33
DX: J06.9 Acute upper respiratory infection, unspecified (principal); J44.1 Chronic obstructive pulmonary disease with (acute) exacerbation
CPT/HCPCS: 71046; 83880; 84484; 85025; 93005; 94640; 96374; 99284; J2930; J7512; J7620; 82040; 82247; 82310; 82374; 82435; 82565; 82947; 84075; 84132; 84155; 84295; 84450; 84460; 84520

== ENCOUNTER 2018-02-18 15:48 | Inpatient (IN) | payer MEDICARE, BC ==
[~2018-02-18] VITALS: Ht 160 cm; Wt 127.5 kg
[2018-02-18 16:04] VITALS: BP 162/92
[2018-02-18 16:24] VITALS: BP 162/92
[2018-02-18] MEDS ORDERED: IPRA3AMP10 IH (16:38)
[2018-02-18] MEDS ORDERED: hydrOXYzine PAMOATE 25 MG CAP PO PRN (17:05)
[2018-02-18 17:38] LABS: PLATELET COUNT, AUTOMATED 199 K/uL (150-450)
--- NOTE | 2018-02-18 17:41 | History & Physical ---
History of Present Illness History of Present Illness 52yo female with COPD who was directly admitted from the clinic because of failure of outpatient treatment of COPD. The patient developed sinus congestion 5 days ago. 3 days ago she developed chills and worsening sinus congestion. 2 days ago, she started with a productive cough, producing green mucus. She went to the ER and she was started on prednisone for a COPD exacerbation. Today, she was in the clinic and received a nebulizer treatment without any improvement in SOB. She reports that nebs haven't been helping at home. She denies new edema, wt gain, worsening orthopnea. History Problems: (1) COPD (chronic obstructive pulmonary disease) Status: Chronic (2) Obstructive sleep apnea Status: Chronic (3) Hypertension Status: Chronic (4) Morbid obesity Status: Chronic (5) Hypothyroidism Status: Chronic (6) RLS (restless legs syndrome) Status: Chronic (7) Somatic symptom disorder Status: Chronic (8) GERD (gastroesophageal reflux disease) Status: Chronic (9) CKD (chronic kidney disease) stage 3, GFR 30-59 ml/min Status: Chronic (10) Persistent depressive disorder Status: Chronic Home Meds Active Scripts Azithromycin (ZITHROMAX) 250 Mg Tablet, 2 TAB PO ONCE, #6 TAB 2 tabs now then 1 daily for 4 days Prov:SKINNY EMMANUEL MD 02/18/18 Prednisone 10 Mg Tab (PREDNISONE 10 MG TAB) 10 Mg Tablet, 8 TAB PO QDAY, #42 TAB Take 6 tabs daily for 2 days, then decrease by 1 tab every 2 days until gone. Prov:SKINNY EMMANUEL MD 02/18/18 Prednisone (PREDNISONE) 20 Mg Tablet, 60 MG PO QDAY, #12 TAB 0 Refills Prov:GARY RODRIGUEZ MD 02/17/18 Esomeprazole Magnesium (NEXIUM) 40 Mg Capsule.dr, 1 CAP PO QDAY, #30 CAP Prov:SKINNY EMMANUEL MD 02/01/18 Lactulose (LACTULOSE) 20 Gm/30 Ml Soln, 20 GM PO DAILY, #500 ML Prov:SKINNY EMMANUEL MD 01/15/18 Metoprolol Succinate (METOPROLOL SUCCINATE) 50 Mg Tab.er.24h, 1 TAB PO QDAY, #30 TAB Prov:SKINNY EMMANUEL MD 06/10/17 Tiotropium [place] (SPIRIVA) 18 Mcg/Cap Inh, 2 PUFF INH DAILY, #1 INH 11 Refills Prov:SKINNY EMMANUEL MD 05/14/17 Nystatin (NYSTOP) 60 Gm Powder, 1 DONALD TP BID, #1 BOTTLE 0 Refills APPLY TO AFFECTED AREA TWICE A DAY Prov:SKINNY EMMANUEL MD 03/13/17 Reported Medications Oxygen (OXYGEN) Inha, 2 L INH QDAY, L 01/09/18 Budesonide/Formoterol Fumarate (SYMBICORT 80-4.5 MCG INHALER) 10.2 Gm Hfa. aer.ad, 10.2 GM IH BID 12/07/17 Bupropion Hcl (WELLBUTRIN SR) 150 Mg Tablet.er, 150 MG PO QDAY, TAB 11/11/17 Melatonin (MELATONIN) 2.5 Mg Tab.chew, 2.5 MG PO DAILY, TAB.CHEW 11/11/17 Escitalopram Oxalate (ESCITALOPRAM OXALATE) 20 Mg Tablet, 20 MG PO QDAY 11/11/17 Pramipexole Di-Hcl (MIRAPEX) 1 Mg Tablet, 1 MG PO DAILY 11/11/17 Famotidine (FAMOTIDINE) 20 Mg Tablet, 20 MG PO QDAY, TAB 11/11/17 [place]-3/Dha/Epa/Fish Oil (OMEGA-3 FISH OIL 1,000 MG SFGL) 1,000 Mg Capsule, 1000 MG PO BID, CAPSULE 07/06/17 Cholecalciferol (Vitamin D3) (VITAMIN D3) 1,000 Unit Tablet, 1000 UNIT PO QDAY, TAB 06/20/17 Ibuprofen (IBUPROFEN) 200 Mg Tablet, 2 TAB PO Q8H PRN for PAIN, TAB (MOTRIN): TAKE 400 MG EVERY 8 HRS NEEDED FOR PAIN. 02/03/17 Hydroxyzine Pamoate (HYDROXYZINE PAMOATE) 25 Mg Capsule, 25 TAB PO Q8H PRN for ANXIETY/INSOMNIA 01/27/17 Albuterol Sulfate 90 Mcg/Act (PROAIR HFA 90 MCG/ACT) 8.5 Gm Hfa.aer.ad, 2 PUFF IH Q4-6H PRN for DYSPNEA, INHALER 01/27/17 Multivitamin (MULTIVITAMINS) 1 Each Capsule, 1 EACH PO DAILY, CAPSULE 12/08/16 Discontinued Scripts Ondansetron (ZOFRAN ODT) 4 Mg Tab.rapdis, 4 MG PO Q6H PRN for NAUSEA/VOMITING, #20 TAB.HUSSEIN Prov:NINA GORDON FUNERAL SERVICE PRACTITIONER/EMBALMER 01/17/18 Allergies: Coded Allergies: aripiprazole (Verified Allergy, Intermediate, RASH, 02/16/18) lithium (Verified Allergy, Intermediate, RASH, 02/16/18) lurasidone (Verified Allergy, Intermediate, 02/16/18) quetiapine (Verified Allergy, Intermediate, DIZZY, 02/16/18) DIzzy varenicline (Verified Allergy, Intermediate, SWELLING, 02/16/18) ciprofloxacin (Verified Allergy, Mild, N/V, 02/16/18) sulfamethoxazole (Verified Allergy, Mild, HIVES, 02/16/18) topiramate (Verified Allergy, Mild, UPSET STOMACH, 02/16/18) Upset stomach trimethoprim (Verified Allergy, Mild, HIVES, 02/16/18) haloperidol (Verified Adverse Reaction, Severe, DYSTONIC REACTION, 02/16/18) propofol (Verified Adverse Reaction, Severe, HALLUCINATIONS, 02/16/18) PT STATES "I HEARD VOICES TELLING ME TO KILL MYSELF THE NIGHT AFTER I HAD A COLONOSCOPY" amoxicillin (Verified Adverse Reaction, Intermediate, Pruritus , 02/16/18) adhesive tape (Verified Adverse Reaction, Mild, RASH, 02/16/18) fluticasone (Verified Adverse Reaction, Mild, THRUSH, 02/16/18) salmeterol (Verified Adverse Reaction, Mild, THRUSH, 02/16/18) Patient History: Breast cancer FH: alcohol abuse FATHER, , Age:82 MOTHER, , Age:66 FH: atrial fibrillation FATHER, , Age:82 FH: breast cancer MGM, Onset:80 [place] PGM FH: hypertension FATHER, , Age:82 MOTHER, , Age:66 BROTHER OR SISTER FH: kidney failure FATHER, , Age:82 FH: leukemia BROTHER OR SISTER Other Social/Family Hx Lives alone. 5 cigs/day. 30 pk yr hx. No alcohol. Hx Smoking: Yes Smoking Status: Current: Every Day Smoker Exposure to Second Hand Smoke?: Yes Caffeine Intake: Coffee Caffeine/Cups Per Day: 3 cups a day Hx Alcohol Use: No Hx Substance Use Disorder: No Social Drug Use: Never Social Drugs: Prescription Drugs Amount Of Social Drug/s Used: TOOK 30 TABLETS OF [employer] Review of Systems All Systems Reviewed/Normal: Yes, Except as Noted Exam Vital Signs Vital Signs Date Time Temp Pulse Resp B/P (MAP) Pulse Ox O2 Delivery O2 Flow Rate FiO2 02/18/18 16:24 98.4 18 162/92 (115) 93 Nasal Cannula 1.0 02/18/18 16:04 79 General Appearance: Alert, Awake, No Acute Distress Neuro: No Gross deficits ENT: Moist Mucous Membranes Cardiovascular: Regular Rate and Rhythm, No Edema, No JVD Respiratory: Other (bilateral exp wheezes. Moving air to bases well) GI: Abd Soft and Non-Tender Extremities: No Edema Integumentary: No Jaundice, No Cyanosis Medical Decision Making Data Points Item Value Date Time Creatinine 1.10 mg/dl H 01/17/18 1346 Creatinine 1.20 mg/dl H 02/14/18 0000 Creatinine 1.10 mg/dl H 02/16/188 Blood Urea Nitrogen 18 mg/dl 02/16/182317 Carbon Dioxide Level 31 mmol/L 02/16/182317 Chloride Level 101 mmol/L 02/16/188 Potassium Level 3.7 mmol/L 02/16/182317 Sodium Level 137 mmol/L 02/16/188 Random Glucose 116 mg/dl H 02/16/188 Total Bilirubin 0.2 mg/dl 02/16/182317 Aspartate Amino Transf (AST/SGOT) 14 U/L 02/16/182317 Alanine Aminotransferase (ALT/SGPT) 22 U/L 02/16/182317 Alkaline Phosphatase 78 U/L 02/16/182317 Troponin I < 0.012 ng/ml 02/16/182317 B-Type Natriuretic Peptide 13 pg/ml 02/16/182317 White Blood Count 6.3 k/uL 02/16/182317 Hemoglobin 13.3 g/dL 02/16/182317 Neutrophils (%) (Auto) 63.1 % 02/16/182317 Platelet Count 226 K/uL 02/16/182317 EKG / Imaging Imaging 02/16/18 CXR - No acute cardiopulmonary abnormality. Assessment and Plan Problems: (1) COPD exacerbation Status: Acute Assessment & Plan: She presented with 5 days of sinus congestion, 3 days of chills and 2 days of cough/SOB. She has been on Prednisone for 2 days and still wheezy. She appears comfortable and is on less O2 than baseline. She does continue to smoke. She was directly admitted from the clinic. Will switch to methylprednisolone and start doxycycline. Continue Symbicort and Spiriva. Will give DuoNeb qid and prn albuterol. Will recheck CXR and BNP. (2) Morbid obesity Status: Chronic Assessment & Plan: Complicates COPD exacerbation. (3) Hypertension Status: Chronic Assessment & Plan: Continue chronic Toprol. (4) Persistent depressive disorder Status: Chronic Assessment & Plan: Continue chronic hydroxyzine prn, escitalopram, and Wellbutrin. (5) RLS (restless legs syndrome) Status: Chronic Assessment & Plan: Continue chronic Mirapex. (6) CKD (chronic kidney disease) stage 3, GFR 30-59 ml/min Status: Chronic Assessment & Plan: Baseline creatinine is 0.9-1.2 Venous Thromboembolism Antithrombotics Is Pt On Any Antithrombotics?: No TIFFANIE MASSEY MD Feb 18, 2018 17:41
[2018-02-18] MEDS ORDERED: methylPREDNIS SUCC 125 MG/2ML IVP SCH (18:00)
[2018-02-18] MEDS: BUDESO/FORMOT 80/4.5 MCG 6.9GM INH SCH (18:28)
[2018-02-18] MEDS: ALBUTEROL/IPRATROPIUM 3 ML NEB NEB SCH (18:28)
[2018-02-18] MEDS ORDERED: NS(*) 0.9% 250 ML BAG 250 ML ONE (20:33)
--- NOTE | 2018-02-18 20:33 | RADIOLOGY IMAGING REPORT ---
FACILITY: [facility] PATIENT NAME: Natividad Loaiza : 1965 MR: [id number] V: [id number] EXAM DATE: ORDERING PHYSICIAN: TIFFANIE MASSEY TECHNOLOGIST: Location: [facility] - [place] Patient: Natividad Loaiza : 1965 Visit/Account:[id number] Date of Sevice: 02/18/2018 Examination: CHEST SINGLE AP Comparison: 02/16/2018 and earlier. History: Shortness of breath. Findings: Cardiac and hilar contour size is within normal limits. No new or enlarging consolidation, nodule, or definite evidence of acute peribronchial inflammation. No pneumothorax, edema, or effusion. Osseous structures are intact. IMPRESSION: No evidence of acute cardiopulmonary disease. Report Dictated By: Venancio House MD at 02/18/2018 8:28 PM Report E-Signed By: Venancio House MD at 02/18/2018 8:30 PM WSN:[id number]
[2018-02-18] MEDS: DOXYCYCLINE HYCL 100 MG VIAL 100 MG in NS(*) 0.9% 250 ML BAG 250 ML IV SCH (20:35)
[2018-02-18] MEDS: PRAMIPEXOLE DIHYDROCHL 0.25 MG PO SCH (20:35)
[2018-02-18] MEDS: MELATONIN 3 MG TAB PO SCH (20:35)
[2018-02-18 20:42] VITALS: BP 122/65
[2018-02-19 00:41] VITALS: BP 154/90
[2018-02-19] MEDS: ALBUTEROL 2.5 MG/3 ML NEB NEB PRN (00:50)
[2018-02-19] MEDS: methylPREDNIS SUCC 125 MG/2ML IVP SCH ×4 (02:27→20:01)
[2018-02-19] MEDS: ALBUTEROL/IPRATROPIUM 3 ML NEB NEB SCH ×4 (05:51→18:07)
[2018-02-19] MEDS: BUDESO/FORMOT 80/4.5 MCG 6.9GM INH SCH ×2 (05:52→18:07)
[2018-02-19] MEDS: TIOTROPIUM BROM INH 18 MCG/CAP INH SCH (05:53)
[2018-02-19 08:01] VITALS: BP 141/74
[2018-02-19 08:11] VITALS: Ht 160 cm; Wt 127.5 kg
[2018-02-19] MEDS: ENOXAPARIN 40 MG/0.4ML SYR SC SCH (08:58)
[2018-02-19] MEDS: FAMOTIDINE 20 MG TAB PO SCH (08:59)
[2018-02-19] MEDS: ESCITALOPRAM OXALATE 10 MG TAB PO SCH (08:59)
[2018-02-19] MEDS: METOPROLOL SUCC XL 50 MG TABCR 50 MG TAB.ER.24H PO SCH (08:59)
[2018-02-19] MEDS: DOXYCYCLINE HYCL 100 MG VIAL 100 MG in NS(*) 0.9% 250 ML BAG 250 ML IV SCH ×2 (09:03→21:52)
[2018-02-19] MEDS: buPROPion XL 150 MG TABCR PO SCH (09:14)
[2018-02-19] MEDS: PANTOPRAZOLE SOD 40 MG TABEC PO SCH (09:14)
[2018-02-19] MEDS: LACTULOSE 10 GM/15 ML UDCUP PO SCH (09:14)
--- NOTE | 2018-02-19 11:48 | Hospitalist Progress Note ---
Subjective Progress Notes Subjective She was admitted for COPD exacerbation. She still has complaints of wheezing. Patient Complains of: Cardiovascular: No: Chest Pain Respiratory: Wheezing; No: Shortness of Breath Physical Exam Vital Signs Date Time Temp Pulse Resp B/P (MAP) Pulse Ox O2 Delivery O2 Flow Rate FiO2 02/19/18 11:01 98 Nasal Cannula 2.0 02/19/18 11:01 79 16 02/19/18 08:01 98.1 141/74 (96) General Appearance: Alert, Awake, No Acute Distress, Afebrile Neuro: No Gross deficits Cardiovascular: Regular Rate and Rhythm Respiratory: No Respiratory Distress, Other (expiratory wheezing noted throughout bilateral lungs) GI: Soft and Non-Tender Extremities: Warm, Perfused; No Edema Psych: Alert & Oriented X3, Appropriate Mood & Affect Result Diagram: 02/18/18172802/18/181728 Assessment and Plan Problems: (1) COPD exacerbation Status: Acute Assessment & Plan: She presented with 5 days of sinus congestion, 3 days of chills and 2 days of cough/SOB. She has been on Prednisone for 2 days and still wheezy. She appears comfortable and is on less O2 than baseline. She does continue to smoke. She was directly admitted from the clinic. Will switch to methylprednisolone and start doxycycline. Continue Symbicort and Spiriva. Will give DuoNeb qid and prn albuterol. CXR shows no acute processes and BNP is 47. (2) Morbid obesity Status: Chronic Assessment & Plan: Complicates COPD exacerbation. (3) Hypertension Status: Chronic Assessment & Plan: Continue chronic Toprol. (4) Persistent depressive disorder Status: Chronic Assessment & Plan: Continue chronic hydroxyzine prn, escitalopram, and Wellbutrin. (5) RLS (restless legs syndrome) Status: Chronic Assessment & Plan: Continue chronic Mirapex. (6) CKD (chronic kidney disease) stage 3, GFR 30-59 ml/min Status: Chronic Assessment & Plan: Baseline creatinine is 0.9-1.2 Exam Sepsis Risk: No Definite Risk SANTI RICE METALWORKER Feb 19, 2018 11:48
[2018-02-19 12:53] VITALS: BP 137/70
[2018-02-19 18:40] VITALS: BP 128/68
[2018-02-19 19:51] VITALS: BP 155/81
--- NOTE | 2018-02-19 21:50 | EKG ---
FACILITY: [facility] - [place] PATIENT NAME: FLORENCIO CRUZ : [id number] MR: [id number] V: [id number] EXAM DATE: ORDERING PHYSICIAN: STEPHANIE MARROQUIN TECHNOLOGIST: EMILY Test Reason : CHEST PAIN Blood Pressure : / mmHG Vent. Rate : 078 BPM Atrial Rate : 078 BPM P-R Int : 136 ms QRS Dur : 082 ms QT Int : 382 ms P-R-T Axes : 065 065 074 degrees QTc Int : 435 ms Normal sinus rhythm Normal ECG When compared with ECG of 16-FEB-2018 23:20, Minimal criteria for Anterior infarct are no longer present Nonspecific T wave abnormality no longer evident in Anterior leads Confirmed by Stephanie Cox ([id number]) on 02/19/2018 11:03:30 PM Referred By: Confirmed By:Stephanie Marroquin
[2018-02-19] MEDS: PRAMIPEXOLE DIHYDROCHL 0.25 MG PO SCH (21:51)
[2018-02-19] MEDS: MELATONIN 3 MG TAB PO SCH (21:51)
[2018-02-19] MEDS: traMADol 50 MG TAB PO PRN (22:01)
[2018-02-19 22:28] VITALS: BP 138/72
[2018-02-20] MEDS: methylPREDNIS SUCC 125 MG/2ML IVP SCH ×3 (02:39→18:32)
[2018-02-20 02:45] VITALS: BP 150/84
[2018-02-20] MEDS: ACETAMINOPHEN 325 MG TAB PO PRN ×2 (02:54→21:00)
[2018-02-20] MEDS: ALBUTEROL/IPRATROPIUM 3 ML NEB NEB SCH ×4 (05:29→17:42)
[2018-02-20] MEDS: TIOTROPIUM BROM INH 18 MCG/CAP INH SCH (05:29)
[2018-02-20] MEDS: BUDESO/FORMOT 80/4.5 MCG 6.9GM INH SCH ×2 (05:29→17:42)
[2018-02-20] MEDS: traMADol 50 MG TAB PO PRN (05:45)
[2018-02-20 08:50] VITALS: BP 163/89
[2018-02-20] MEDS: DOXYCYCLINE HYCL 100 MG VIAL 100 MG in NS(*) 0.9% 250 ML BAG 250 ML IV SCH ×2 (09:42→21:01)
[2018-02-20] MEDS: buPROPion XL 150 MG TABCR PO SCH (09:42)
[2018-02-20] MEDS: PANTOPRAZOLE SOD 40 MG TABEC PO SCH (09:42)
[2018-02-20] MEDS: FAMOTIDINE 20 MG TAB PO SCH (09:43)
[2018-02-20] MEDS: ENOXAPARIN 40 MG/0.4ML SYR SC SCH (09:43)
[2018-02-20] MEDS: ESCITALOPRAM OXALATE 10 MG TAB PO SCH (09:43)
[2018-02-20] MEDS: METOPROLOL SUCC XL 50 MG TABCR 50 MG TAB.ER.24H PO SCH (09:43)
[2018-02-20] MEDS: LACTULOSE 10 GM/15 ML UDCUP PO SCH (09:47)
--- NOTE | 2018-02-20 10:02 | Antimicrobial Stewardship ---
Antimicrobial Stewardship Empiricly appropriate: Yes Comment Started on Doxycycline 100 mg IV bid for COPD exacerbation. Reviewed for Drug Interaction: Yes Monitored for Toxicities: Yes Comment Still with increased O2 needs. IV to PO Opportunity: Yes Comment Can consider switching to PO. Determine cumulative duration: 5-10 days BECK GARIBAY Feb 20, 2018 10:02
[2018-02-20 11:23] VITALS: BP 151/77
--- NOTE | 2018-02-20 13:58 | Hospitalist Progress Note ---
Subjective Progress Notes Subjective She reports feeling improved, but still wheezing. Physical Exam Vital Signs Date Time Temp Pulse Resp B/P (MAP) Pulse Ox O2 Delivery O2 Flow Rate FiO2 02/20/18 11:23 98.7 78 20 151/77 (101) 93 Nasal Cannula 3.0 Intake and Output 02/20/18 07:00 Intake Total 975 ml Balance 975 ml Intake Oral 710 ml IV Total 265 ml # Voids 3 General Appearance: Alert, Awake Cardiovascular: Regular Rate and Rhythm Respiratory: Other (bilateral wheezes) Extremities: Warm, Perfused Result Diagram: 02/18/18 1729 02/18/18 172 Assessment and Plan Problems: (1) COPD exacerbation Status: Acute Assessment & Plan: She presented with 5 days of sinus congestion, 3 days of chills and 2 days of cough/SOB. She had been on Prednisone for 2 days and was still wheezy. She appears comfortable and is on less O2 than her baseline. She does continue to smoke. She was directly admitted from the clinic. She is currently on IV methylprednisolone and doxycycline. Will continue DuoNeb and prn albuterol. Add Singulair 10mg PO daily. CXR shows no acute processes/infiltra fady. BNP is 47. (2) Morbid obesity Status: Chronic Assessment & Plan: Complicates COPD exacerbation. (3) Hypertension Status: Chronic Assessment & Plan: Continue chronic Toprol. May need to consider switch to different class if unable to resolve persistent wheezing. (4) Persistent depressive disorder Status: Chronic Assessment & Plan: Continue chronic hydroxyzine prn, escitalopram, and Wellbutrin. (5) RLS (restless legs syndrome) Status: Chronic Assessment & Plan: Continue chronic Mirapex. (6) CKD (chronic kidney disease) stage 3, GFR 30-59 ml/min Status: Chronic Assessment & Plan: Baseline creatinine is 0.9-1.2 Exam Sepsis Risk: No Definite Risk ARIELLE MCCOY MD Feb 20, 2018 13:58
[2018-02-20 18:40] VITALS: BP 138/81
[2018-02-20] MEDS: PRAMIPEXOLE DIHYDROCHL 0.25 MG PO SCH (20:59)
[2018-02-20] MEDS: MELATONIN 3 MG TAB PO SCH (20:59)
[2018-02-20 22:17] VITALS: BP 171/94
[2018-02-21] MEDS: traMADol 50 MG TAB PO PRN ×2 (00:48→11:39)
[2018-02-21] MEDS: methylPREDNIS SUCC 125 MG/2ML IVP SCH ×2 (01:41→20:54)
[2018-02-21 01:46] VITALS: BP 165/92
[2018-02-21] MEDS: ALBUTEROL/IPRATROPIUM 3 ML NEB NEB SCH ×4 (05:28→18:02)
[2018-02-21] MEDS: BUDESO/FORMOT 80/4.5 MCG 6.9GM INH SCH ×2 (05:28→18:03)
[2018-02-21] MEDS: TIOTROPIUM BROM INH 18 MCG/CAP INH SCH (05:28)
[2018-02-21 06:14] LABS: PLATELET COUNT, AUTOMATED 189 K/uL (150-450)
[2018-02-21 07:12] VITALS: BP 172/97
[2018-02-21] MEDS ORDERED: methylPREDNIS SUCC 125 MG/2ML IVP SCH (09:00)
[2018-02-21] MEDS: METOPROLOL SUCC XL 50 MG TABCR 50 MG TAB.ER.24H PO SCH (09:06)
[2018-02-21] MEDS: MONTELUKAST SODIUM 10 MG TAB PO SCH (09:06)
[2018-02-21] MEDS: LACTULOSE 10 GM/15 ML UDCUP PO SCH (09:07)
[2018-02-21] MEDS: ENOXAPARIN 40 MG/0.4ML SYR SC SCH (09:07)
[2018-02-21] MEDS: FAMOTIDINE 20 MG TAB PO SCH (09:07)
[2018-02-21] MEDS: PANTOPRAZOLE SOD 40 MG TABEC PO SCH (09:07)
[2018-02-21] MEDS: ESCITALOPRAM OXALATE 10 MG TAB PO SCH (09:07)
[2018-02-21] MEDS: DOXYCYCLINE HYCL 100 MG VIAL 100 MG in NS(*) 0.9% 250 ML BAG 250 ML IV SCH ×2 (09:08→20:53)
[2018-02-21] MEDS: buPROPion XL 150 MG TABCR PO SCH (09:09)
--- NOTE | 2018-02-21 09:40 | Hospitalist Progress Note ---
Subjective Progress Notes Subjective Patient states she is able to move around as long as she goes slowly. She feels a bit better today. Physical Exam Vital Signs Date Time Temp Pulse Resp B/P (MAP) Pulse Ox O2 Delivery O2 Flow Rate FiO2 02/21/18 07:12 97.8 67 20 172/97 (122) 95 Nasal Cannula 02/21/18 05:26 3.0 Intake and Output 02/21/18 06:59 Intake Total 3622 ml Balance 3622 ml Intake Oral 3372 ml IV Total 250 ml # Voids 6 General Appearance: Alert, Awake, No Acute Distress Neuro: No Gross deficits Cardiovascular: Regular Rate and Rhythm Respiratory: No Respiratory Distress, Other (Expiratory wheezes anteriorly and posteriorly.) GI: Soft and Non-Tender Extremities: Warm, Perfused Psych: Appropriate Mood & Affect Result Diagram: 02/21/1854702/21/18547 Assessment and Plan Problems: (1) COPD exacerbation Status: Acute Assessment & Plan: She presented with 5 days of sinus congestion, 3 days of chills and 2 days of cough/SOB. She had been on Prednisone for 2 days and was still wheezy. She appears comfortable and is on 3L which is her baseline. She continues to have some wheezing. She does continue to smoke. She was directly admitted from the clinic. She is currently on IV methylprednisolone and doxycycline. Will continue DuoNeb and prn albuterol. Add Singulair 10mg PO daily. CXR shows no acute processes/infiltrates. BNP is 47. (2) Morbid obesity Status: Chronic Assessment & Plan: Complicates COPD exacerbation. (3) Hypertension Status: Chronic Assessment & Plan: Continue chronic Toprol. May need to consider switch to different class if unable to resolve persistent wheezing. (4) Persistent depressive disorder Status: Chronic Assessment & Plan: Continue chronic hydroxyzine prn, escitalopram, and Wellbutrin. (5) RLS (restless legs syndrome) Status: Chronic Assessment & Plan: Continue chronic Mirapex. (6) CKD (chronic kidney disease) stage 3, GFR 30-59 ml/min Status: Chronic Assessment & Plan: Baseline creatinine is 0.9-1.2 Time Spent on Plan of Care: < 30 min Exam Sepsis Risk: No Definite Risk ALEXI MCCOY MD Feb 21, 2018 09:40
[2018-02-21 15:06] VITALS: BP 155/84
[2018-02-21] MEDS: ALBUTEROL 2.5 MG/3 ML NEB NEB PRN (18:17)
[2018-02-21 19:50] VITALS: BP 168/98
[2018-02-21] MEDS: MELATONIN 3 MG TAB PO SCH (20:54)
[2018-02-21] MEDS: PRAMIPEXOLE DIHYDROCHL 0.25 MG PO SCH (20:54)
[2018-02-22 03:34] VITALS: BP 195/112
[2018-02-22] MEDS: BUDESO/FORMOT 80/4.5 MCG 6.9GM INH SCH (05:25)
[2018-02-22] MEDS: TIOTROPIUM BROM INH 18 MCG/CAP INH SCH (05:25)
[2018-02-22] MEDS: ALBUTEROL/IPRATROPIUM 3 ML NEB NEB SCH ×2 (05:25→08:56)
[2018-02-22 05:47] VITALS: BP 176/100
[2018-02-22] MEDS ORDERED: INFLUENZA VIRUS VAC 0.5ML SYR IM ONLY ONE (09:00)
[2018-02-22 09:27] VITALS: BP 149/91
[2018-02-22] MEDS: DOXYCYCLINE HYCL 100 MG VIAL 100 MG in NS(*) 0.9% 250 ML BAG 250 ML IV SCH (09:31)
[2018-02-22] MEDS: MONTELUKAST SODIUM 10 MG TAB PO SCH (09:35)
[2018-02-22] MEDS: methylPREDNIS SUCC 125 MG/2ML IVP SCH (09:35)
[2018-02-22] MEDS: LACTULOSE 10 GM/15 ML UDCUP PO SCH (09:35)
[2018-02-22] MEDS: PANTOPRAZOLE SOD 40 MG TABEC PO SCH (09:35)
[2018-02-22] MEDS: buPROPion XL 150 MG TABCR PO SCH (09:35)
[2018-02-22] MEDS: ESCITALOPRAM OXALATE 10 MG TAB PO SCH (09:35)
[2018-02-22] MEDS: METOPROLOL SUCC XL 50 MG TABCR 50 MG TAB.ER.24H PO SCH (09:35)
[2018-02-22] MEDS: FAMOTIDINE 20 MG TAB PO SCH (09:35)
[2018-02-22] MEDS ORDERED: DOCU-416 PO (10:35)
[2018-02-22] MEDS ORDERED: DOXY-181 PO (10:35)
[2018-02-22] MEDS ORDERED: PRED-1 PO (10:35)
[2018-02-22] MEDS ORDERED: MONT10TA PO (10:35)
--- NOTE | 2018-02-22 10:49 | Hospitalist Depart ---
Discharge Summary Reason for Hosp/Final Diag: (1) COPD exacerbation Status: Acute Hospital Course & Plan: She presented with 5 days of sinus congestion, 3 days of chills and 2 days of cough/SOB. She had been on Prednisone for 2 days and was still wheezy. She appears comfortable and is on 3L which is her baseline. She continues to have some wheezing. She does continue to smoke. She was directly admitted from the clinic. She was placed on IV methylprednisolone and doxycycline.She will continue another 3 days of oral doxycycline. She will also taper prednisone starting at 60mg for three days, then decrease by 10mg every three days. She was placed on DuoNeb and prn albuterol. Singulair 10mg was added PO daily. CXR shows no acute processes/infiltrates. BNP is 47. (2) Morbid obesity Status: Chronic Hospital Course & Plan: Complicates COPD exacerbation. (3) Hypertension Status: Chronic Hospital Course & Plan: Continue chronic Toprol. (4) Persistent depressive disorder Status: Chronic Hospital Course & Plan: Continue chronic hydroxyzine prn, escitalopram, and Wellbutrin. (5) RLS (restless legs syndrome) Status: Chronic Hospital Course & Plan: Continue chronic Mirapex. (6) CKD (chronic kidney disease) stage 3, GFR 30-59 ml/min Status: Chronic Hospital Course & Plan: Baseline creatinine is 0.9-1.2 Departure Latest Vital Signs Vital Signs 02/22/18 09:27 Temp 96.9 Pulse 76 Resp 22 B/P (MAP) 149/91 (110) Pulse Ox 93 O2 Delivery Nasal Cannula O2 Flow Rate 3.0 Weight (Pounds): 281 Result Diagram: 02/21/18 0548 02/22/18 0517 Condition: Improved Discharge: Home, Self Care Discharge Instructions Home Meds Active Scripts Doxycycline Hyclate (DOXYCYCLINE HYCLATE) 100 Mg Capsule, 100 MG PO BID, #6 CAPSULE Prov:[facility] 02/22/18 Docusate Sodium (COLACE) 100 Mg Capsule, 100 MG PO BID PRN for CONSTIPATION, #60 CAPSULE Prov:[facility] 02/22/18 Montelukast Sodium (SINGULAIR) 10 Mg Tablet, 10 MG PO QDAY, #30 TAB Prov:[facility] 02/22/18 Prednisone 10 Mg Tab (PREDNISONE 10 MG TAB) 10 Mg Tablet, 6 TAB PO QDAY, #63 TAB Take 6 tabs daily for 3 days, then decrease by 1 tab every 3 days until gone. Prov:[facility] [employer] 02/22/18 Esomeprazole Magnesium (NEXIUM) 40 Mg Capsule.dr, 1 CAP PO QDAY, #30 CAP Prov:SKINNY TREVINO MD 02/01/18 Lactulose (LACTULOSE) 20 Gm/30 Ml Soln, 20 GM PO DAILY, #500 ML Prov:SKINNY TREVINO MD 01/15/18 Metoprolol Succinate (METOPROLOL SUCCINATE) 50 Mg Tab.er.24h, 1 TAB PO QDAY, #30 TAB Prov:SKINNY TREVINO MD 06/10/17 Tiotropium [place] (SPIRIVA) 18 Mcg/Cap Inh, 2 PUFF INH DAILY, #1 INH 11 Refills Prov:SKINNY TREVINO MD 05/14/17 Nystatin (NYSTOP) 60 Gm Powder, 1 DONALD TP BID, #1 BOTTLE 0 Refills APPLY TO AFFECTED AREA TWICE A DAY Prov:SKINNY TREVINO MD 03/13/17 Reported Medications Oxygen (OXYGEN) Inha, 2 L INH QDAY, L 01/09/18 Budesonide/Formoterol Fumarate (SYMBICORT 80-4.5 MCG INHALER) 10.2 Gm Hfa.aer.ad, 10.2 GM IH BID 12/07/17 Bupropion Hcl (WELLBUTRIN SR) 150 Mg Tablet.er, 150 MG PO QDAY, TAB 11/11/17 Melatonin (MELATONIN) 2.5 Mg Tab.chew, 2.5 MG PO DAILY, TAB.CHEW 11/11/17 Escitalopram Oxalate (ESCITALOPRAM OXALATE) 20 Mg Tablet, 20 MG PO QDAY 11/11/17 Pramipexole Di-Hcl (MIRAPEX) 1 Mg Tablet, 1 MG PO DAILY 11/11/17 Famotidine (FAMOTIDINE) 20 Mg Tablet, 20 MG PO QDAY, TAB 11/11/17 [place]-3/Dha/Epa/Fish Oil (OMEGA-3 FISH OIL 1,000 MG SFGL) 1,000 Mg Capsule, 1000 MG PO BID, CAPSULE 07/06/17 Cholecalciferol (Vitamin D3) (VITAMIN D3) 1,000 Unit Tablet, 1000 UNIT PO QDAY, TAB 06/20/17 Ibuprofen (IBUPROFEN) 200 Mg Tablet, 2 TAB PO Q8H PRN for PAIN, TAB (MOTRIN): TAKE 400 MG EVERY 8 HRS NEEDED FOR PAIN. 02/03/17 Hydroxyzine Pamoate (HYDROXYZINE PAMOATE) 25 Mg Capsule, 25 TAB PO Q8H PRN for ANXIETY/INSOMNIA 01/27/17 Albuterol Sulfate 90 Mcg/Act (PROAIR HFA 90 MCG/ACT) 8.5 Gm Hfa.aer.ad, 2 PUFF IH Q4-6H PRN for DYSPNEA, INHALER 01/27/17 Multivitamin (MULTIVITAMINS) 1 Each Capsule, 1 EACH PO DAILY, CAPSULE 12/08/16 Discontinued Scripts Azithromycin (ZITHROMAX) 250 Mg Tablet, 2 TAB PO ONCE, #6 TAB 2 tabs now then 1 daily for 4 days Prov:SKINNY TREVINO MD 02/18/18 Prednisone (PREDNISONE) 20 Mg Tablet, 60 MG PO QDAY, #12 TAB 0 Refills Prov:GARY RODRIGUEZ MD 02/17/18 Diet: Regular Activity: As Tolerated Special Instructions: Follow up with Dr. Trevino in 1 week. Copies to: SKINNY TREVINO MD ; Venous Thromboembolism Antithrombotics Is Pt On Any Antithrombotics?: No [facility] [employer] Feb 22, 2018 10:49
== END 2018-02-22 11:20 | disposition home or self-care (01) | DRG 191 ==
LOC: MED 15:51
PROVIDERS: ADMIT Internal Medicine; ATTEND Internal Medicine
DX: J44.1 Chronic obstructive pulmonary disease with (acute) exacerbation (principal); Z68.42 Body mass index [BMI] 45.0-49.9, adult; F34.1 Dysthymic disorder; I12.9 Hypertensive chronic kidney disease with stage 1 through stage 4 chronic kidney disease, or unspecified chronic kidney disease; N18.3 Chronic kidney disease, stage 3 (moderate); E66.01 Morbid (severe) obesity due to excess calories; G47.33 Obstructive sleep apnea (adult) (pediatric); G25.81 Restless legs syndrome; E03.9 Hypothyroidism, unspecified; K21.9 Gastro-esophageal reflux disease without esophagitis; F17.210 Nicotine dependence, cigarettes, uncomplicated; F45.9 Somatoform disorder, unspecified; Z88.2 Allergy status to sulfonamides; Z88.0 Allergy status to penicillin; Z88.8 Allergy status to other drugs, medicaments and biological substances; Z99.81 Dependence on supplemental oxygen
CPT/HCPCS: 36415; 71045; 71046; 82040; 82247; 82310; 82374; 82435; 82565; 82947; 83880; 84075; 84132; 84155; 84295; 84450; 84460; 84484; 84520; 84703; 85025; 93005; 94640; 96374; 99284; J1650; J2930; J3490; J3535; J7050; J7512; J7613

== ENCOUNTER 2018-02-24 03:33 | Inpatient (IN) | payer MEDICARE, BC ==
[~2018-02-24] VITALS: Ht 160 cm; Wt 127.5 kg
[~2018-02-24 03:33] MED LIST changes: +MONT10TA PO
--- NOTE | 2018-02-24 03:46 | ER Report ---
History and Physical Time Seen By MD: 03:45 Hx. of Stated Complaint: PT REPORTS SOB. HPI/ROS CHIEF COMPLAINT: Short of breath HISTORY OF PRESENT ILLNESS: This is a 52-year-old female. She has COPD. She woke tonight very short of breath, wheezing. She is currently on prednisone 60 mg with a tapering dose ordered. She was recently in the hospital 2 days ago. She also used her pro-air and her DuoNeb at home prior to coming in. She feels some tightness in the left side of her chest. She is wheezing significantly. She is continuing on her usual 3 L of home oxygen. She denies any fevers. No nausea. No problem with bowel or urination at this point. She says that when she returned home from the hospital and was started on the prednisone things seem to worsen. REVIEW OF SYSTEMS: Constitutional: No fever or chills. Eyes: No vision changes. ENT: No sore throat. No congestion. Cardiovascular: No palpitations. Respiratory: As above. Gastrointestinal: No abdominal pain. Genitourinary: As above. Musculoskeletal: No back pain. No extremity pain. Skin: No rashes. Neurological: No numbness. No headache. Allergies: Coded Allergies: aripiprazole (Verified Allergy, Intermediate, RASH, 02/24/18) lithium (Verified Allergy, Intermediate, RASH, 02/24/18) lurasidone (Verified Allergy, Intermediate, 02/24/18) quetiapine (Verified Allergy, Intermediate, DIZZY, 02/24/18) DIzzy varenicline (Verified Allergy, Intermediate, SWELLING, 02/24/18) ciprofloxacin (Verified Allergy, Mild, N/V, 02/24/18) sulfamethoxazole (Verified Allergy, Mild, HIVES, 02/24/18) topiramate (Verified Allergy, Mild, UPSET STOMACH, 02/24/18) Upset stomach trimethoprim (Verified Allergy, Mild, HIVES, 02/24/18) haloperidol (Verified Adverse Reaction, Severe, DYSTONIC REACTION, 02/24/18) propofol (Verified Adverse Reaction, Severe, HALLUCINATIONS, 02/24/18) PT STATES "I HEARD VOICES TELLING ME TO KILL MYSELF THE NIGHT AFTER I HAD A COLONOSCOPY" amoxicillin (Verified Adverse Reaction, Intermediate, Pruritus , 02/24/18) adhesive tape (Verified Adverse Reaction, Mild, RASH, 02/24/18) fluticasone (Verified Adverse Reaction, Mild, THRUSH, 02/24/18) salmeterol (Verified Adverse Reaction, Mild, THRUSH, 02/24/18) Home Meds Active Scripts Doxycycline Hyclate (DOXYCYCLINE HYCLATE) 100 Mg Capsule, 100 MG PO BID, #6 CAPSULE Prov:[facility] 02/22/18 Docusate Sodium (COLACE) 100 Mg Capsule, 100 MG PO BID PRN for CONSTIPATION, #60 CAPSULE Prov:[facility] 02/22/18 Montelukast Sodium (SINGULAIR) 10 Mg Tablet, 10 MG PO QDAY, #30 TAB Prov:[facility] 02/22/18 Prednisone 10 Mg Tab (PREDNISONE 10 MG TAB) 10 Mg Tablet, 6 TAB PO QDAY, #63 TAB Take 6 tabs daily for 3 days, then decrease by 1 tab every 3 days until gone. Prov:[facility] 02/22/18 Esomeprazole Magnesium (NEXIUM) 40 Mg Capsule.dr, 1 CAP PO QDAY, #30 CAP Prov:SKINNY EMMANUEL MD 02/01/18 Lactulose (LACTULOSE) 20 Gm/30 Ml Soln, 20 GM PO DAILY, #500 ML Prov:SKINNY EMMANUEL MD 01/15/18 Metoprolol Succinate (METOPROLOL SUCCINATE) 50 Mg Tab.er.24h, 1 TAB PO QDAY, #30 TAB Prov:SKINNY EMMANUEL MD 06/10/17 Tiotropium [place] (SPIRIVA) 18 Mcg/Cap Inh, 2 PUFF INH DAILY, #1 INH 11 Refills Prov:SKINNY EMMANUEL MD 05/14/17 Nystatin (NYSTOP) 60 Gm Powder, 1 DONALD TP BID, #1 BOTTLE 0 Refills APPLY TO AFFECTED AREA TWICE A DAY Prov:SKINNY EMMANUEL MD 03/13/17 Reported Medications Oxygen (OXYGEN) Inha, 2 L INH QDAY, L 01/09/18 Budesonide/Formoterol Fumarate (SYMBICORT 80-4.5 MCG INHALER) 10.2 Gm Hfa.aer.ad, 10.2 GM IH BID 12/07/17 Bupropion Hcl (WELLBUTRIN SR) 150 Mg Tablet.er, 150 MG PO QDAY, TAB 8/8/18 Melatonin (MELATONIN) 2.5 Mg Tab.chew, 2.5 MG PO DAILY, TAB.CHEW 11/11/17 Escitalopram Oxalate (ESCITALOPRAM OXALATE) 20 Mg Tablet, 20 MG PO QDAY 11/11/17 Pramipexole Di-Hcl (MIRAPEX) 1 Mg Tablet, 1 MG PO DAILY 11/11/17 Famotidine (FAMOTIDINE) 20 Mg Tablet, 20 MG PO QDAY, TAB 11/11/17 [place] [employer]-3/Dha/Epa/Fish Oil (OMEGA-3 FISH OIL 1,000 MG SFGL) 1,000 Mg Capsule, 1000 MG PO BID, CAPSULE 07/06/17 Cholecalciferol (Vitamin D3) (VITAMIN D3) 1,000 Unit Tablet, 1000 UNIT PO QDAY, TAB 06/20/17 Ibuprofen (IBUPROFEN) 200 Mg Tablet, 2 TAB PO Q8H PRN for PAIN, TAB (MOTRIN): TAKE 400 MG EVERY 8 HRS NEEDED FOR PAIN. 02/03/17 Hydroxyzine Pamoate (HYDROXYZINE PAMOATE) 25 Mg Capsule, 25 TAB PO Q8H PRN for ANXIETY/INSOMNIA 01/27/17 Albuterol Sulfate 90 Mcg/Act (PROAIR HFA 90 MCG/ACT) 8.5 Gm Hfa.aer.ad, 2 PUFF IH Q4-6H PRN for DYSPNEA, INHALER 01/27/17 Multivitamin (MULTIVITAMINS) 1 Each Capsule, 1 EACH PO DAILY, CAPSULE 12/08/16 Discontinued Scripts Azithromycin (ZITHROMAX) 250 Mg Tablet, 2 TAB PO ONCE, #6 TAB 2 tabs now then 1 daily for 4 days Prov:SKINNY EMMANUEL MD 02/18/18 Prednisone (PREDNISONE) 20 Mg Tablet, 60 MG PO QDAY, #12 TAB 0 Refills Prov:GARY RODRIGUEZ MD 02/17/18 Reviewed Nurses Notes: Yes Hx Smoking: Yes Smoking Status: Current: Every Day Smoker Exposure to Second Hand Smoke?: Yes Hx Substance Use Disorder: No Hx Alcohol Use: No Constitutional Vital Sign - Last 24 Hours 02/24/18 02/24/18 02/24/18 02/24/18 03:38 03:46 03:48 04:00 Temp 98.0 Pulse 70 63 Resp 18 B/P (MAP) 169/104 Pulse Ox 91 96 97 O2 Delivery Room Air Nasal Cannula O2 Flow Rate 3.0 2.5 02/24/18 02/24/18 02/24/18 02/24/18 04:00 04:03 04:15 04:18 Pulse 63 60 64 Resp 18 B/P (MAP) 151/91 (111) Pulse Ox 97 96 Physical Exam General Appearance: The patient is alert. She is having some acute distress because of her feeling of shortness of breath. Eyes: Pupils are equal, round. No pallor, injection or icterus. ENT: Mucous membranes are moist. Normal oral mucosa. Posterior oropharynx is normal. Neck: Supple and non tender. No lymphadenopathy. Respiratory: Audible wheezing when I walk in the room. This seems worse on the left side of her chest with auscultation. No rales or rhonchi noted. She is working harder to breathe with accessory muscle use. Cardiovascular: Tachycardia but a regular rhythm, distant sounds. No murmurs, gallops or rubs. Normal capillary refill. Trace edema bilateral. Gastrointestinal: Abdomen is soft and non tender. Nondistended. Normal active bowel sounds. Neurological: Alert and oriented x3. Skin: Warm and dry. DIFFERENTIAL DIAGNOSIS: After history and physical exam, differential diagnosis was considered for shortness of breath including but not limited to pulmonary infectious process, COPD exacerbation, coronary syndrome and congestive heart failure. Medical Decision Making Data Points Result Diagram: 02/24/18 0400 02/24/18 0400 Laboratory Hematology Test 02/24/18 04:00 Red Blood Count 4.57 M/uL (4.17-5.56) Mean Corpuscular Volume 91.7 fL (80.0-96.0) Mean Corpuscular Hemoglobin 31.1 pg (26.0-33.0) Mean Corpuscular Hemoglobin Concent 33.9 g/dL (32.0-36.0) Red Cell Distribution Width 12.9 % (11.5-14.5) Mean Platelet Volume 8.8 fL (7.2-11.1) Neutrophils (%) (Auto) % (39.4-72.5) Lymphocytes (%) (Auto) % (17.6-49.6) Monocytes (%) (Auto) % (4.1-12.4) Eosinophils (%) (Auto) % (0.4-6.7) Basophils (%) (Auto) % (0.3-1.4) Nucleated RBC Relative Count (auto) /100WBC Neutrophils # (Auto) K/uL (2.0-7.4) Lymphocytes # (Auto) K/uL (1.3-3.6) Monocytes # (Auto) K/uL (0.3-1.0) Eosinophils # (Auto) K/uL (0.0-0.5) Basophils # (Auto) K/uL (0.0-0.1) Nucleated RBC Absolute Count (auto) K/uL Neutrophils % (Manual) 71 % (39.4-72.5) Band Neutrophils % 2 % Lymphocytes % (Manual) 10 % (17.6-49.6) Atypical Lymphocytes % 12 % Monocytes % (Manual) 4 % (4.1-12.4) Eosinophils % (Manual) 0 % (0.4-6.7) Basophils % (Manual) 0 % (0.3-1.4) Metamyelocytes % 1 % Peripheral Blood Smear Yes Y/N D-Dimer Quantitative (PE/DVT) 0.29 ug/ml (0-0.50) Sodium Level 136 mmol/L (137-145) Potassium Level 3.5 mmol/L (3.5-5.0) Chloride Level 100 mmol/L (98-107) Carbon Dioxide Level 30 mmol/L (22-31) Blood Urea Nitrogen 32 mg/dl (7-18) Creatinine 1.10 mg/dl (0.52-1.04) Glomerular Filtration Rate Calc 51.8 Random Glucose 85 mg/dl (75-110) Calcium Level 8.9 mg/dl (8.4-10.2) Total Bilirubin 0.4 mg/dl (0.2-1.3) Aspartate Amino Transf (AST/SGOT) 16 U/L (0-35) Alanine Aminotransferase (ALT/SGPT) 30 U/L (0-56) Alkaline Phosphatase 65 U/L (0-126) Troponin I < 0.012 ng/ml B-Type Natriuretic Peptide 35 pg/ml (0-100) Total Protein 5.9 g/dl (6.3-8.2) Albumin 3.3 g/dl (3.5-5.0) Chemistry Test 02/24/18 04:00 White Blood Count 13.8 k/uL (4.5-11.0) Red Blood Count 4.57 M/uL (4.17-5.56) Hemoglobin 14.2 g/dL (12.0-16.0) Hematocrit 41.9 % (34.0-47.0) Mean Corpuscular Volume 91.7 fL (80.0-96.0) Mean Corpuscular Hemoglobin 31.1 pg (26.0-33.0) Mean Corpuscular Hemoglobin Concent 33.9 g/dL (32.0-36.0) Red Cell Distribution Width 12.9 % (11.5-14.5) Platelet Count 247 K/uL (150-450) Mean Platelet Volume 8.8 fL (7.2-11.1) Neutrophils (%) (Auto) % (39.4-72.5) Lymphocytes (%) (Auto) % (17.6-49.6) Monocytes (%) (Auto) % (4.1-12.4) Eosinophils (%) (Auto) % (0.4-6.7) Basophils (%) (Auto) % (0.3-1.4) Nucleated RBC Relative Count (auto) /100WBC Neutrophils # (Auto) K/uL (2.0-7.4) Lymphocytes # (Auto) K/uL (1.3-3.6) Monocytes # (Auto) K/uL (0.3-1.0) Eosinophils # (Auto) K/uL (0.0-0.5) Basophils # (Auto) K/uL (0.0-0.1) Nucleated RBC Absolute Count (auto) K/uL Neutrophils % (Manual) 71 % (39.4-72.5) Band Neutrophils % 2 % Lymphocytes % (Manual) 10 % (17.6-49.6) Atypical Lymphocytes % 12 % Monocytes % (Manual) 4 % (4.1-12.4) Eosinophils % (Manual) 0 % (0.4-6.7) Basophils % (Manual) 0 % (0.3-1.4) Metamyelocytes % 1 % Peripheral Blood Smear Yes Y/N D-Dimer Quantitative (PE/DVT) 0.29 ug/ml (0-0.50) Glomerular Filtration Rate Calc 51.8 Calcium Level 8.9 mg/dl (8.4-10.2) Total Bilirubin 0.4 mg/dl (0.2-1.3) Aspartate Amino Transf (AST/SGOT) 16 U/L (0-35) Alanine Aminotransferase (ALT/SGPT) 30 U/L (0-56) Alkaline Phosphatase 65 U/L (0-126) Troponin I < 0.012 ng/ml B-Type Natriuretic Peptide 35 pg/ml (0-100) Total Protein 5.9 g/dl (6.3-8.2) Albumin 3.3 g/dl (3.5-5.0) Coagulation Test 02/24/18 04:00 D-Dimer Quantitative (PE/DVT) 0.29 ug/ml EKG/Imaging EKG Interpretation 12 lead EKG: Rhythm: normal sinus rhythm, rate 61 [place]: normal QRS: normal ST segments: normal Unchanged when compared to previous Imaging CHEST PA AND LAT HISTORY: Respiratory distress. History of COPD. COMPARISON: 02/18/2018 and studies dating to 03/16/2014. TECHNIQUE: PA and lateral views of the chest. FINDINGS: Pulmonary: Lungs are clear. There is no pneumothorax or pleural effusion. There is slight right hemidiaphragm elevation. Cardiomediastinal: Cardiac and mediastinal silhouettes are within normal limits. There is mild aortic calcification. Bones/soft tissues: No acute osseous abnormality. There is mild degenerative change of the spine. The visible abdomen is normal. IMPRESSION: 1. No acute cardiopulmonary process. Report Dictated By: Debi Vanegas at 02/24/2018 4:28 AM ED Course/Re-evaluation Clinical Indication for ER IV: IV Access ED Course After initial evaluation, an IV was started and the patient was given methylprednisolone 125 mg IV. She also received a DuoNeb treatment. She had slight improvement with her symptoms but was still having increased work of breathing. A chest x-ray was obtained which does not show any acute cardiopulmonary process. Because she was still struggling to breathe despite having normal oxygen saturations, I did 3 [id number] albuterol nebulizers. This did help a little bit more but she still is having trouble with breathing. I called and spoke with our hospitalist, Dr. Franks, recommended admission for COPD exacerbation. Decision to Disposition Date: Feb 24, 2018 Decision to Disposition Time: 05:54 Depart Departure Latest Vital Signs Vital Signs Date Time Temp Pulse Resp B/P (MAP) Pulse Ox O2 Delivery O2 Flow Rate FiO2 02/24/18 04:18 64 96 02/24/18 04:15 151/91 (111) 02/24/18 04:00 18 02/24/18 04:00 Nasal Cannula 2.5 02/24/18 03:38 98.0 Core Temperature (Celsius): 37.23 Impression: Primary Impression: COPD exacerbation Condition: Condition Unchanged Disposition: Admitted from ER Referrals: SKINNY EMMANUEL MD (PCP) GARY RODRIGUEZ MD Feb 24, 2018 03:46
[2018-02-24] MEDS ORDERED: methylPREDNIS SUCC 125 MG/2ML IVP ONE (03:55)
[2018-02-24] MEDS: ALBUTEROL/IPRATROPIUM 3 ML NEB NEB SCH ×6 (04:05→17:57)
[2018-02-24 04:20] LABS: PLATELET COUNT, AUTOMATED 247 K/uL (150-450)
--- NOTE | 2018-02-24 04:33 | RADIOLOGY IMAGING REPORT ---
FACILITY: [facility] - [place] PATIENT NAME: Natividad Loaiza : 1965 MR: [id number] V: [id number] EXAM DATE: ORDERING PHYSICIAN: GARY RODRIGUEZ TECHNOLOGIST: [place] [facility] [place] Natividad Loaiza : 1965 Visit/Account:[id number] Date of Sevice: 02/24/2018 CHEST PA AND LAT HISTORY: Respiratory distress. History of COPD. COMPARISON: 02/18/2018 and studies dating to 03/16/2014. TECHNIQUE: PA and lateral views of the chest. FINDINGS: Pulmonary: Lungs are clear. There is no pneumothorax or pleural effusion. There is slight right hemid iaphragm elevation. Cardiomediastinal: Cardiac and mediastinal silhouettes are within normal limits. There is mild aortic calcification. Bones/soft tissues: No acute osseous abnormality. There is mild degenerative change of the spine. The visible abdomen is normal. IMPRESSION: 1. No acute cardiopulmonary process. Report Dictated By: Debi Vanegas at 02/24/2018 4:28 AM Report E-Signed By: Debi Vanegas at 02/24/2018 4:30 AM WSN:[id number]
[2018-02-24] MEDS ORDERED: ALBUTEROL 2.5 MG/3 ML NEB NEB ONE (04:50)
--- NOTE | 2018-02-24 05:30 | EKG ---
[place]AC[place] [facility] [place]IENT NAME: FLORENCIO CRUZ : [id number] MR: [id number] V: [id number] EXAM DATE: ORDERING PHYSICIAN: GARY RODRIGUEZ TECHNOLOGIST: ANITA Test Reason : SOB Blood Pressure : / mmHG Vent. Rate : 061 BPM Atrial Rate : 061 BPM P-R Int : 116 ms QRS Dur : 076 ms QT Int : 430 ms P-R-T Axes : 054 035 050 degrees QTc Int : 432 ms Normal sinus rhythm Possible Anterior infarct , age undetermined vs lead placement No ST-T abnormalities When compared with ECG of 19-FEB-2018 19:38, Borderline criteria for Anterior infarct are now present Nonspecific T wave abnormality now evident in Anterior leads Confirmed by TIFFANIE MASSEY ([id number]) on 02/24/2018 5:59:30 AM Referred By: Confirmed By:TIFFANIE MASSEY
[2018-02-24] MEDS ORDERED: ALBUTEROL 2.5 MG/3 ML NEB NEB PRN (06:20)
[2018-02-24] MEDS ORDERED: ACETAMINOPHEN 325 MG TAB PO PRN (06:20)
[2018-02-24] MEDS ORDERED: INFLUENZA VIRUS VAC 0.5ML SYR IM ONLY ONE (06:20)
[2018-02-24] MEDS ORDERED: hydrOXYzine PAMOATE 25 MG CAP PO PRN (06:20)
--- NOTE | 2018-02-24 06:54 | History & Physical ---
History of Present Illness History of Present Illness 52yo female with COPD and is a current smoker who came back to the ER for worsening SOB. She was discharge from the hospital 2 days ago (02/18 to 02/22) for a COPD exacerbation. She went home on prednisone and doxycycline. She initially did well, but then the night before admission, started getting really SOB so came to the ER. She did resume smoking upon discharge. She denies any f/c. She didn't report any chest pain. She reports that prednisone doesn't work as well for her as methylprednisolone. In the ER, she received an IV methylprednisolone, albuterol neb, and an hour long DuoNeb with mild improvement. History Problems: (1) COPD (chronic obstructive pulmonary disease) Status: Chronic (2) Morbid obesity Status: Chronic (3) Hypothyroidism Status: Chronic (4) RLS (restless legs syndrome) Status: Chronic (5) Somatic symptom disorder Status: Chronic (6) GERD (gastroesophageal reflux disease) Status: Chronic (7) CKD (chronic kidney disease) stage 3, GFR 30-59 ml/min Status: Chronic (8) Persistent depressive disorder Status: Chronic Home Meds Active Scripts Doxycycline Hyclate (DOXYCYCLINE HYCLATE) 100 Mg Capsule, 100 MG PO BID, #6 CAPSULE Prov:[facility] 02/22/18 Docusate Sodium (COLACE) 100 Mg Capsule, 100 MG PO BID PRN for CONSTIPATION, #60 CAPSULE Prov:[facility] 02/22/18 Montelukast Sodium (SINGULAIR) 10 Mg Tablet, 10 MG PO QDAY, #30 TAB Prov:[facility] 02/22/18 Prednisone 10 Mg Tab (PREDNISONE 10 MG TAB) 10 Mg Tablet, 6 TAB PO QDAY, #63 TAB Take 6 tabs daily for 3 days, then decrease by 1 tab every 3 days until gone. Prov:[facility] 02/22/18 Esomeprazole Magnesium (NEXIUM) 40 Mg Capsule.dr, 1 CAP PO QDAY, #30 CAP Prov:SKINNY EMMANUEL MD 02/01/18 Lactulose (LACTULOSE) 20 Gm/30 Ml Soln, 20 GM PO DAILY, #500 ML Prov:SKINNY EMMANUEL MD 01/15/18 Metoprolol Succinate (METOPROLOL SUCCINATE) 50 Mg Tab.er.24h, 1 TAB PO QDAY, #30 TAB Prov:SKINNY EMMANUEL MD 06/10/17 Tiotropium [place] (SPIRIVA) 18 Mcg/Cap Inh, 2 PUFF INH DAILY, #1 INH 11 Refills Prov:SKINNY EMMANUEL MD 05/14/17 Nystatin (NYSTOP) 60 Gm Powder, 1 DONALD TP BID, #1 BOTTLE 0 Refills APPLY TO AFFECTED AREA TWICE A DAY Prov:SKINNY EMMANUEL MD 03/13/17 Reported Medications Oxygen (OXYGEN) Inha, 2 L INH QDAY, L 01/09/18 Budesonide/Formoterol Fumarate (SYMBICORT 80-4.5 MCG INHALER) 10.2 Gm Hfa.aer.ad, 10.2 GM IH BID 12/07/17 Bupropion Hcl (WELLBUTRIN SR) 150 Mg Tablet.er, 150 MG PO QDAY, TAB 11/11/17 Melatonin (MELATONIN) 2.5 Mg Tab.chew, 2.5 MG PO DAILY, TAB.CHEW 11/11/17 Escitalopram Oxalate (ESCITALOPRAM OXALATE) 20 Mg Tablet, 20 MG PO QDAY 11/11/17 Pramipexole Di-Hcl (MIRAPEX) 1 Mg Tablet, 1 MG PO DAILY 11/11/17 Famotidine (FAMOTIDINE) 20 Mg Tablet, 20 MG PO QDAY, TAB 11/11/17 [place]-3/Dha/Epa/Fish Oil (OMEGA-3 FISH OIL 1,000 MG SFGL) 1,000 Mg Capsule, 1000 MG PO BID, CAPSULE 07/06/17 Cholecalciferol (Vitamin D3) (VITAMIN D3) 1,000 Unit Tablet, 1000 UNIT PO QDAY, TAB 06/20/17 Ibuprofen (IBUPROFEN) 200 Mg Tablet, 2 TAB PO Q8H PRN for PAIN, TAB (MOTRIN): TAKE 400 MG EVERY 8 HRS NEEDED FOR PAIN. 02/03/17 Hydroxyzine Pamoate (HYDROXYZINE PAMOATE) 25 Mg Capsule, 25 TAB PO Q8H PRN for ANXIETY/INSOMNIA 01/27/17 Albuterol Sulfate 90 Mcg/Act (PROAIR HFA 90 MCG/ACT) 8.5 Gm Hfa.aer.ad, 2 PUFF IH Q4-6H PRN for DYSPNEA, INHALER 01/27/17 Multivitamin (MULTIVITAMINS) 1 Each Capsule, 1 EACH PO DAILY, CAPSULE 12/08/16 Discontinued Scripts Azithromycin (ZITHROMAX) 250 Mg Tablet, 2 TAB PO ONCE, #6 TAB 2 tabs now then 1 daily for 4 days Prov:SKINNY EMMANUEL MD 02/18/18 Prednisone (PREDNISONE) 20 Mg Tablet, 60 MG PO QDAY, #12 TAB 0 Refills Prov:GARY RODRIGUEZ MD 02/17/18 Allergies: Coded Allergies: aripiprazole (Verified Allergy, Intermediate, RASH, 02/24/18) lithium (Verified Allergy, Intermediate, RASH, 02/24/18) lurasidone (Verified Allergy, Intermediate, 02/24/18) quetiapine (Verified Allergy, Intermediate, DIZZY, 02/24/18) DIzzy varenicline (Verified Allergy, Intermediate, SWELLING, 02/24/18) ciprofloxacin (Verified Allergy, Mild, N/V, 02/24/18) sulfamethoxazole (Verified Allergy, Mild, HIVES, 02/24/18) topiramate (Verified Allergy, Mild, UPSET STOMACH, 02/24/18) Upset stomach trimethoprim (Verified Allergy, Mild, HIVES, 02/24/18) haloperidol (Verified Adverse Reaction, Severe, DYSTONIC REACTION, 02/24/18) propofol (Verified Adverse Reaction, Severe, HALLUCINATIONS, 02/24/18) PT STATES "I HEARD VOICES TELLING ME TO KILL MYSELF THE NIGHT AFTER I HAD A COLONOSCOPY" amoxicillin (Verified Adverse Reaction, Intermediate, Pruritus , 02/24/18) adhesive tape (Verified Adverse Reaction, Mild, RASH, 02/24/18) fluticasone (Verified Adverse Reaction, Mild, THRUSH, 02/24/18) salmeterol (Verified Adverse Reaction, Mild, THRUSH, 02/24/18) Patient History: Breast cancer FH: alcohol abuse FATHER, , Age:82 MOTHER, , Age:66 FH: atrial fibrillation FATHER, , Age:82 FH: breast cancer MGM, Onset:80 PA PGM FH: hypertension FATHER, , Age:82 MOTHER, , Age:66 BROTHER OR SISTER FH: kidney failure FATHER, , Age:82 FH: leukemia BROTHER OR SISTER Hx Smoking: Yes Smoking Status: Current: Every Day Smoker Exposure to Second Hand Smoke?: Yes Caffeine Intake: Coffee Caffeine/Cups Per Day: 3 cups a day Hx Alcohol Use: No Hx Substance Use Disorder: No Social Drug Use: Never Social Drugs: Prescription Drugs Amount Of Social Drug/s Used: TOOK 30 TABLETS OF DULOXETINE [employer]PER[employer] Review of Systems All Systems Reviewed/Normal: Yes, Except as Noted Exam Vital Signs Vital Signs Date Time Temp Pulse Resp B/P (MAP) Pulse Ox O2 Delivery O2 Flow Rate FiO2 02/24/18 04:18 64 96 02/24/18 04:15 151/91 (111) 02/24/18 04:00 18 02/24/18 04:00 Nasal Cannula 2.5 02/24/18 03:38 98.0 General Appearance: Alert, Awake, Other (Mild to moderate work of breathing with audible wheezing) Neuro: No Gross deficits Eyes: PERRLA Cardiovascular: Regular Rate and Rhythm Respiratory: Other (Diffuse exp wheezes. Moving air to the bases well) GI: Abd Soft and Non-Tender Extremities: Edema (Trace pitting above socks bilaterally) Integumentary: No Jaundice, No Cyanosis Medical Decision Making Data Points Result Diagram: 02/24/18 0400 02/24/18 0400 Item Value Date Time Creatinine 1.10 mg/dl H 02/24/18 0400 Creatinine 1.10 mg/dl H 02/22/18 0517 Total Bilirubin 0.4 mg/dl 02/24/18 0400 Aspartate Amino Transf (AST/SGOT) 16 U/L 02/24/18 0400 Alanine Aminotransferase (ALT/SGPT) 30 U/L 02/24/18 0400 Alkaline Phosphatase 65 U/L 02/24/18 0400 Troponin I < 0.012 ng/ml 02/24/18 0400 B-Type Natriuretic Peptide 35 pg/ml 02/24/18 0400 Neutrophils % (Manual) 71 % 02/24/18 0400 Band Neutrophils % 2 % 02/24/18 0400 Lymphocytes % (Manual) 10 % L 02/24/18 0400 Atypical Lymphocytes % 12 % 02/24/18 0400 Monocytes % (Manual) 4 % L 02/24/18 0400 White Blood Count 9.6 k/uL 02/21/18 0548 White Blood Count 13.8 k/uL H 02/24/18 0400 White Blood Count 7.9 k/uL 02/18/18 1729 White Blood Count 6.3 k/uL 02/16/18 2318 D-Dimer Quantitative (PE/DVT) 0.29 ug/ml 02/24/18 0400 EKG / Imaging EKG Interpretation Vent. Rate : 061 BPM Atrial Rate : 061 BPM P-R Int : 116 ms QRS Dur : 076 ms QT Int : 430 ms P-R-T Axes : 054 035 050 degrees QTc Int : 432 ms Normal sinus rhythm Possible Anterior infarct , age undetermined vs lead placement No ST-T abnormalities When compared with ECG of 19-FEB-2018 19:38, Borderline criteria for Anterior infarct are now present Nonspecific T wave abnormality now evident in Anterior leads Confirmed by TIFFANIE MASSEY ([id number]) on 02/24/2018 5:59:30 AM Imaging CXR - reported by radiology as: 1. No acute cardiopulmonary process. However, cannot rule out left retrocardiac infiltrate by my read Assessment and Plan Problems: (1) COPD exacerbation Status: Acute Assessment & Plan: She presented 2 days after discharge for about 8 hours of worsening SOB. She thinks that prednisone doesn't work as well for her as methylprednisolone. However, she resumed smoking when she got home. She does have increased WOB and audible wheezing despite multiple nebs in the ER. Also, her WBC is up with bandemia (she is on prednisone) and her CXR appears to have a new retrocardiac infiltrate vs difference in Xray penetration. Will stop prednisone and doxycycline and switch her to IV methylprednisolone and renally dose Primaxin. Will repeat a PA and Lat CXR tomorrow morning. She will receive DuoNeb and prn albuterol. Will continue Symbicort, Spiriva and Singulair. She has been told multiple times to stop smoking. (2) Hypertension Status: Chronic Assessment & Plan: Continue chronic Toprol with parameters. (3) RLS (restless legs syndrome) Status: Chronic Assessment & Plan: Continue chronic Mirapex. (4) Persistent depressive disorder Status: Chronic Assessment & Plan: Continue chronic hydroxyzine prn, escitalopram, and Wellbutrin. (5) CKD (chronic kidney disease) stage 3, GFR 30-59 ml/min Status: Chronic Assessment & Plan: Baseline creatinine is 0.9-1.2 Copies to: SKINNY EMMANUEL MD ; Venous Thromboembolism Antithrombotics Is Pt On Any Antithrombotics?: No Exam Sepsis Risk: No Definite Risk TIFFANIE MASSEY MD Feb 24, 2018 06:54
[2018-02-24 07:39] VITALS: Ht 160 cm; Wt 127.5 kg
[2018-02-24] MEDS: BUDESO/FORMOT 80/4.5 MCG 6.9GM INH SCH ×2 (07:45→17:57)
[2018-02-24] MEDS: TIOTROPIUM BROM INH 18 MCG/CAP INH SCH (07:45)
[2018-02-24 07:54] VITALS: BP 175/97
[2018-02-24] MEDS ORDERED: IMIPENEM/CILASTA(*) 500MG VIAL 300 MG in NS(*) 0.9% 100 ML BAG 100 ML IVPB SCH (08:00)
[2018-02-24] MEDS ORDERED: NS(*) 0.9% 250 ML BAG 250 ML ONE (08:23)
[2018-02-24] MEDS: IMIPENEM/CILASTA(*) 500MG VIAL 400 MG in NS(*) 0.9% 100 ML BAG 100 ML IVPB SCH ×3 (08:40→20:10)
[2018-02-24] MEDS: ESCITALOPRAM OXALATE 10 MG TAB PO SCH (08:41)
[2018-02-24] MEDS: MONTELUKAST SODIUM 10 MG TAB PO SCH (08:41)
[2018-02-24] MEDS: FAMOTIDINE 20 MG TAB PO SCH (08:41)
[2018-02-24] MEDS: DOCUSATE SODIUM 100 MG CAP PO SCH ×2 (08:41→20:37)
[2018-02-24] MEDS: buPROPion XL 150 MG TABCR PO SCH (08:41)
[2018-02-24] MEDS: ENOXAPARIN 40 MG/0.4ML SYR SC SCH (08:41)
[2018-02-24] MEDS: PANTOPRAZOLE SOD 40 MG TABEC PO SCH (08:41)
[2018-02-24] MEDS: LACTULOSE 10 GM/15 ML UDCUP PO SCH (08:41)
[2018-02-24] MEDS ORDERED: METOPROLOL SUCC XL 50 MG TABCR 50 MG TAB.ER.24H PO SCH (09:00)
[2018-02-24] MEDS: methylPREDNIS SUCC 125 MG/2ML IVP SCH ×3 (09:57→21:38)
[2018-02-24 14:24] VITALS: BP 158/94
[2018-02-24 19:55] VITALS: BP 171/95
[2018-02-24] MEDS ORDERED: PRAMIPEXOLE DIHYDROCHL 0.25 MG PO SCH (21:00)
[2018-02-24] MEDS ORDERED: MELATONIN 3 MG TAB PO SCH (21:00)
[2018-02-25] MEDS: IMIPENEM/CILASTA(*) 500MG VIAL 400 MG in NS(*) 0.9% 100 ML BAG 100 ML IVPB SCH (01:24)
[2018-02-25 01:37] VITALS: BP 134/72
[2018-02-25 04:00] VITALS: BP 145/90
[2018-02-25] MEDS: methylPREDNIS SUCC 125 MG/2ML IVP SCH (04:02)
[2018-02-25] MEDS: PANTOPRAZOLE SOD 40 MG TABEC PO SCH (05:26)
[2018-02-25] MEDS: TIOTROPIUM BROM INH 18 MCG/CAP INH SCH (05:55)
[2018-02-25] MEDS: BUDESO/FORMOT 80/4.5 MCG 6.9GM INH SCH (05:55)
[2018-02-25] MEDS: ALBUTEROL/IPRATROPIUM 3 ML NEB NEB SCH ×3 (05:55→14:10)
[2018-02-25 06:01] LABS: PLATELET COUNT, AUTOMATED 205 K/uL (150-450)
[2018-02-25 08:27] VITALS: BP 131/88
--- NOTE | 2018-02-25 08:49 | RADIOLOGY IMAGING REPORT ---
FACILITY: [facility] [place] PATIENT NAME: Natividad Loaiza : 1965 MR: [id number] V: [id number] EXAM DATE: ORDERING PHYSICIAN: TIFFANIE MASSEY TECHNOLOGIST: Location: [facility] [place] Patient: Natividad Loaiza : 1965 Visit/Account:[id number] Date of Sevice: 02/25/2018 Chest 2 views: HISTORY: Retrocardiac infiltrate. COMPARISON: 02/24/2018 FINDINGS: Frontal and lateral chest: Cardiomediastinal silhouette is within normal limits. There is v ague bibasilar opacity, probably accentuated by overlying soft tissues. This may reflect atelectasis, lung volumes are low. There is no focal consolidation, pleural effusion or pneumothorax. Pulmonary v asculature is normal. Osseous structures are within normal limits. IMPRESSION: Vague bibasilar opacity, most likely atelectasis. There is no focal consolidation. Report Dictated By: Jackie Jensen MD at 02/25/2018 8:42 AM Report E-Signed By: Jackie Jensen MD at 02/25/2018 8:45 AM WSN:[id number]
[2018-02-25] MEDS ORDERED: predniSONE 20 MG TAB PO SCH (09:00)
[2018-02-25] MEDS ORDERED: DILTIAZEM CD 120 MG CAPCR PO SCH (09:00)
[2018-02-25] MEDS: ESCITALOPRAM OXALATE 10 MG TAB PO SCH (09:19)
[2018-02-25] MEDS: buPROPion XL 150 MG TABCR PO SCH (09:19)
[2018-02-25] MEDS: LACTULOSE 10 GM/15 ML UDCUP PO SCH (09:20)
[2018-02-25] MEDS: FAMOTIDINE 20 MG TAB PO SCH (09:20)
[2018-02-25] MEDS: DOCUSATE SODIUM 100 MG CAP PO SCH (09:20)
[2018-02-25] MEDS: MONTELUKAST SODIUM 10 MG TAB PO SCH (09:20)
[2018-02-25] MEDS: ENOXAPARIN 40 MG/0.4ML SYR SC SCH (09:20)
--- NOTE | 2018-02-25 11:02 | Hospitalist Progress Note ---
Subjective Progress Notes Subjective She reports "maybe a little better". Physical Exam Vital Signs Date Time Temp Pulse Resp B/P (MAP) Pulse Ox O2 Delivery O2 Flow Rate FiO2 02/25/18 09:43 73 20 02/25/18 09:36 94 Nasal Cannula 3.0 02/25/18 08:27 98.2 131/88 (102) Intake and Output 02/25/18 06:59 Intake Total 1260 ml Balance 1260 ml Intake Oral 1060 ml IV Total 200 ml # Voids 7 General Appearance: Alert, Awake Cardiovascular: Regular Rate and Rhythm Respiratory: Other (some central wheeze with forceful expiration/no other adventitial sounds noted) GI: Soft and Non-Tender Extremities: Warm, Perfused Psych: Alert & Oriented X3 Result Diagram: 02/25/1854502/25/18545 Assessment and Plan Problems: (1) COPD exacerbation Status: Acute Assessment & Plan: She presented 2 days after discharge for about 8 hours of worsening SOB. She thinks that prednisone doesn't work as well for her as methylprednisolone. However, she resumed smoking when she got home. She does have audible wheezing despite multiple nebs in the ER. Also, her WBC is up with bandemia (although she has been on prednisone) and her CXRs are negative for acute consolidation. Will stop the IV antibiotics and transition back to oral prednisone. Will stop her metoprolol in favor of diltiazem ext release 120mg daily. She has been told multiple times to stop smoking. (2) Hypertension Status: Chronic Assessment & Plan: Will DC the metoprolol in favor of diltiazem as noted above. It could be contributing to her wheezing/airway reactivity. (3) RLS (restless legs syndrome) Status: Chronic Assessment & Plan: Continue chronic Mirapex. (4) Persistent depressive disorder Status: Chronic Assessment & Plan: Continue chronic hydroxyzine prn, escitalopram, and Wellbutrin. (5) CKD (chronic kidney disease) stage 3, GFR 30-59 ml/min Status: Chronic Assessment & Plan: Baseline creatinine is 0.9-1.2 Exam Sepsis Risk: No Definite Risk ARIELLE MCCOY MD Feb 25, 2018 11:02
[2018-02-25] MEDS ORDERED: DILT120C18 PO (14:23)
--- NOTE | 2018-02-25 14:32 | Hospitalist Depart ---
Discharge Summary Reason for Hosp/Final Diag: (1) COPD exacerbation Status: Acute Hospital Course & Plan: She presented 2 days after discharge with about 8 hours of worsening SOB. She feels that prednisone doesn't work as well for her as methylprednisolone. However, she also resumed smoking when she got home. She did have audible wheezing despite multiple nebs in the ER. Her WBC count was elevated with bandemia (although she had been on prednisone), but her CXRs were negative for acute consolidation. She was initially placed on IV antibiotics, but were subsequently stopped. She was also transitioned back to oral prednisone. We did stop her metoprolol in favor of diltiazem extended release 120mg daily. She has been told multiple times to stop smoking as well. She will follow up closely with her primary care physician as an outpatient. (2) Hypertension Status: Chronic Hospital Course & Plan: Will did DC the metoprolol in favor of diltiazem as noted above. It could have been contributing to her wheezing/airway reactivity. (3) RLS (restless legs syndrome) Status: Chronic Hospital Course & Plan: Continue chronic Mirapex. (4) Persistent depressive disorder Status: Chronic Hospital Course & Plan: Continue chronic hydroxyzine prn, escitalopram, and Wellbutrin. (5) CKD (chronic kidney disease) stage 3, GFR 30-59 ml/min Status: Chronic Hospital Course & Plan: Baseline creatinine is 0.9-1.2 Departure Weight (Pounds): 281 Result Diagram: 02/25/18 0546 02/25/18 0546 Item Value Date Time Hemoglobin 14.2 g/dL 02/24/18 0400 Hematocrit 41.9 % 02/24/18 0400 Platelet Count 247 K/uL 02/24/18 0400 Sodium Level 136 mmol/L L 02/24/18 0400 Potassium Level 3.5 mmol/L 02/24/18 0400 Chloride Level 100 mmol/L 02/24/18 0400 Blood Urea Nitrogen 32 mg/dl H 02/24/18 0400 Creatinine 1.10 mg/dl H 02/24/18 0400 Glomerular Filtration Rate Calc 51.8 02/24/18 0400 Random Glucose 85 mg/dl 02/24/18 0400 Calcium Level 8.9 mg/dl 02/24/18 0400 Total Bilirubin 0.4 mg/dl 02/24/18 0400 Aspartate Amino Transf (AST/SGOT) 16 U/L 02/24/18 0400 Alanine Aminotransferase (ALT/SGPT) 30 U/L 02/24/18 0400 Alkaline Phosphatase 65 U/L 02/24/18399 Troponin I < 0.012 ng/ml 02/24/18399 Total Protein 5.9 g/dl L 02/24/18 0400 Albumin 3.3 g/dl L 02/24/18399 B-Type Natriuretic Peptide 35 pg/ml 02/24/18399 D-Dimer Quantitative (PE/DVT) 0.29 ug/ml 02/24/18399 [facility] *LIVE* [address] [place] [address] JACLYN SCOTT M.D., DIRECTOR OF LABORATORY SERVICES STEPHANIE SONG M.D., PATHOLOGIST RUN DATE: 02/25/18 Specimen Inquiry Report PAGE 1 RUN TIME: 1000 PATIENT: FLORENCIO CRUZ ACCT: [id number] LOC: [facility] U: [id number] AGE/SX: 52/F ROOM: Critical access hospital RE02/24/[address]: TIFFANIE MASSEY MD : 1965 BED: 264 DIS: STATUS: ADM IN TLOC: SPEC #: [id number] PEPITO: 02/24/18 STATUS: RES REQ #: [id number] RECD: 02/24/[address]: TIFFANIE MASSEY MD SOURCE: BLOOD ENTR: 02/24/18-[address]: SKINNY EMMANUEL MD [facility]: ORDERED: CULT BLOOD Procedure Result Verified - BLOOD CULTURE Preliminary 02/25/18-1000 NO GROWTH AFTER 1 DAY, REINCUBATED [facility] [address] [place] [address] JACLYN SCOTT M.D., DIRECTOR OF LABORATORY SERVICES STEPHANIE SONG M.D., PATHOLOGIST RUN DATE: 02/25/18 Specimen Inquiry Report PAGE 1 RUN TIME: 1000 PATIENT: FLORENCIO CRUZ ACCT: [id number] LOC: MED U: [id number] AGE/SX: 52/F ROOM: 2264 RE02/24/[address]: TIFFANIE MASSEY MD : 1965 BED: 264 DIS: STATUS: ADM IN TLOC: SPEC #: [id number] PEPITO: 02/24/18 STATUS: RES REQ #: [id number] RECD: 02/24/[address]: TIFFANIE MASSEY MD SOURCE: BLOOD ENTR: 02/24/[address] [facility] DR: SKINNY EMMANUEL MD [facility]: ORDERED: CULT BLOOD Procedure Result Verified BLOOD CULTURE Preliminary 02/25/18-1000 NO GROWTH AFTER 1 DAY, REINCUBATED Imaging PATIENT NAME: Florencio Cruz : 1965 MR: [id number] V: [id number] EXAM DATE: ORDERING PHYSICIAN: GARY RODRIGUEZ TECHNOLOGIST: Location: [facility] Patient: Florencio Cruz : 1965 Visit/Account:[id number] Date of Sevice: 02/24/2018 CHEST PA AND LAT HISTORY: Respiratory distress. History of COPD. COMPARISON: 02/18/2018 and studies dating to 03/16/2014. TECHNIQUE: PA and lateral views of the chest. FINDINGS: Pulmonary: Lungs are clear. There is no pneumothorax or pleural effusion. There is slight right hemidiaphragm elevation. Cardiomediastinal: Cardiac and mediastinal silhouettes are within normal limits. There is mild aortic calcification. Bones/soft tissues: No acute osseous abnormality. There is mild degenerative change of the spine. The visible abdomen is normal. IMPRESSION: 1. No acute cardiopulmonary process. Report Dictated By: Debi Vanegas at 02/24/2018 4:28 AM Report E-Signed By: Debi Vanegas at 02/24/2018 4:30 AM WSN:[id number] PATIENT NAME: Florencio Cruz : 1965 MR: [id number] V: [id number] EXAM DATE: ORDERING PHYSICIAN: TIFFANIE MASSEY TECHNOLOGIST: Location: [facility] Patient: Florencio Cruz : 1965 Visit/Account:[id number] Date of Sevice: 02/25/2018 Chest 2 views: HISTORY: Retrocardiac infiltrate. COMPARISON: 02/24/2018 FINDINGS: Frontal and lateral chest: Cardiomediastinal silhouette is within normal limits. There is vague bibasilar opacity, probably accentuated by overlying soft tissues. This may reflect atelectasis, lung volumes are low. There is no focal consolidation, pleural effusion or pneumothorax. Pulmonary vasculature is normal. Osseous structures are within normal limits. IMPRESSION: Vague bibasilar opacity, most likely atelectasis. There is no focal consolidation. Report Dictated By: Jackie Jensen MD at 02/25/2018 8:42 AM Report E-Signed By: Jackie Jensen MD at 02/25/2018 8:45 AM WSN:[id number] EKG PATIENT NAME: FLORENCIO CRUZ : [id number] MR: [id number] V: [id number] EXAM DATE: ORDERING PHYSICIAN: GARY RODRIGUEZ TECHNOLOGIST: ANITA Test Reason : SOB Blood Pressure : / mmHG Vent. Rate : 061 BPM Atrial Rate : 061 BPM P-R Int : 116 ms QRS Dur : 076 ms QT Int : 430 ms P-R-T Axes : 054 035 050 degrees QTc Int : 432 ms Normal sinus rhythm Possible Anterior infarct , age undetermined vs lead placement No ST-T abnormalities When compared with ECG of 19-FEB-2018 19:38, Borderline criteria for Anterior infarct are now present Nonspecific T wave abnormality now evident in Anterior leads Confirmed by TIFFANIE MASSEY ([id number]) on 02/24/2018 5:59:30 AM Referred By: Confirmed By:TIFFANIE MASSEY Condition: Improved Discharge: Home Time Spent: > 30 min Discharge Instructions Home Meds Active Scripts Diltiazem Hcl (DILTIAZEM 24HR CD) 120 Mg Cap.er.24h, 120 MG PO QDAY for 30 Days, #30 CAP 1 Refill Prov:ARIELLE MCCOY MD 02/25/18 Doxycycline Hyclate (DOXYCYCLINE HYCLATE) 100 Mg Capsule, 100 MG PO BID, #6 CAPSULE Prov:[facility] 02/22/18 Docusate Sodium (COLACE) 100 Mg Capsule, 100 MG PO BID PRN for CONSTIPATION, #60 CAPSULE Prov:[facility] 02/22/18 Montelukast Sodium (SINGULAIR) 10 Mg Tablet, 10 MG PO QDAY, #30 TAB Prov:[facility] 02/22/18 Prednisone 10 Mg Tab (PREDNISONE 10 MG TAB) 10 Mg Tablet, 6 TAB PO QDAY, #63 TAB Take 6 tabs daily for 3 days, then decrease by 1 tab every 3 days until gone. Prov:[facility] 02/22/18 Esomeprazole Magnesium (NEXIUM) 40 Mg Capsule.dr, 1 CAP PO QDAY, #30 CAP Prov:SKINNY EMMANUEL MD 02/01/18 Lactulose (LACTULOSE) 20 Gm/30 Ml Soln, 20 GM PO DAILY, #500 ML Prov:SKINNY EMMANUEL MD 01/15/18 Tiotropium [place] (SPIRIVA) 18 Mcg/Cap Inh, 2 PUFF INH DAILY, #1 INH 11 Refills Prov:SKINNY EMMANUEL MD 05/14/17 Nystatin (NYSTOP) 60 Gm Powder, 1 DONALD TP BID, #1 BOTTLE 0 Refills APPLY TO AFFECTED AREA TWICE A DAY Prov:SKINNY EMMANUEL MD 03/13/17 Reported Medications Oxygen (OXYGEN) Inha, 2 L INH QDAY, L 01/09/18 Budesonide/Formoterol Fumarate (SYMBICORT 80-4.5 MCG INHALER) 10.2 Gm Hfa.aer.ad, 10.2 GM IH BID 12/07/17 Bupropion Hcl (WELLBUTRIN SR) 150 Mg Tablet.er, 150 MG PO QDAY, TAB 11/11/17 Melatonin (MELATONIN) 2.5 Mg Tab.chew, 2.5 MG PO DAILY, TAB.CHEW 11/11/17 Escitalopram Oxalate (ESCITALOPRAM OXALATE) 20 Mg Tablet, 20 MG PO QDAY 11/11/17 Pramipexole Di-Hcl (MIRAPEX) 1 Mg Tablet, 1 MG PO DAILY 11/11/17 Famotidine (FAMOTIDINE) 20 Mg Tablet, 20 MG PO QDAY, TAB 11/11/17 [place]-3/Dha/Epa/Fish Oil (OMEGA-3 FISH OIL 1,000 MG SFGL) 1,000 Mg Capsule, 1000 MG PO BID, CAPSULE 07/06/17 Cholecalciferol (Vitamin D3) (VITAMIN D3) 1,000 Unit Tablet, 1000 UNIT PO QDAY, TAB 06/20/17 Ibuprofen (IBUPROFEN) 200 Mg Tablet, 2 TAB PO Q8H PRN for PAIN, TAB (MOTRIN): TAKE 400 MG EVERY 8 HRS NEEDED FOR PAIN. 02/03/17 Hydroxyzine Pamoate (HYDROXYZINE PAMOATE) 25 Mg Capsule, 25 TAB PO Q8H PRN for ANXIETY/INSOMNIA 01/27/17 Albuterol Sulfate 90 Mcg/Act (PROAIR HFA 90 MCG/ACT) 8.5 Gm Hfa.aer.ad, 2 PUFF IH Q4-6H PRN for DYSPNEA, INHALER 01/27/17 Multivitamin (MULTIVITAMINS) 1 Each Capsule, 1 EACH PO DAILY, CAPSULE 12/08/16 Discontinued Scripts Metoprolol Succinate (METOPROLOL SUCCINATE) 50 Mg Tab.er.24h, 1 TAB PO QDAY, #30 TAB Prov:SKINNY EMMANUEL MD 06/10/17 Azithromycin (ZITHROMAX) 250 Mg Tablet, 2 TAB PO ONCE, #6 TAB 2 tabs now then 1 daily for 4 days Prov:SKINNY EMMANUEL MD 02/18/18 Prednisone (PREDNISONE) 20 Mg Tablet, 60 MG PO QDAY, #12 TAB 0 Refills Prov:GARY RODRIGUEZ MD 02/17/18 Follow up Referrals: Internal Medicine @ [facility]-Primary with SKINNY EMMANUEL MD Diet: Regular Activity: As Tolerated (with oxygen on) Special Instructions: Continue home oxygen. Recommend No Smoking. Copies to: SKINNY EMMANUEL MD ; Venous Thromboembolism Antithrombotics Is Pt On Any Antithrombotics?: No ARIELLE MCCOY MD Feb 25, 2018 14:32
[2018-02-26] MEDS ORDERED: MECL25TA9 PO (12:15)
== END 2018-02-25 14:55 | disposition home or self-care (01) | DRG 191 ==
LOC: ER 04:03 → MED 06:38
PROVIDERS: ADMIT Internal Medicine; ATTEND Internal Medicine
PROC: 5A09357 Assistance with Respiratory Ventilation, Less than 24 Consecutive Hours, Continuous Positive Airway Pressure (ICD-10-PCS; principal; 2018-02-24)
DX: J44.1 Chronic obstructive pulmonary disease with (acute) exacerbation (principal); Z68.42 Body mass index [BMI] 45.0-49.9, adult; F17.210 Nicotine dependence, cigarettes, uncomplicated; T44.7X5A Adverse effect of beta-adrenoreceptor antagonists, initial encounter; G25.81 Restless legs syndrome; F45.9 Somatoform disorder, unspecified; F34.1 Dysthymic disorder; I12.9 Hypertensive chronic kidney disease with stage 1 through stage 4 chronic kidney disease, or unspecified chronic kidney disease; N18.3 Chronic kidney disease, stage 3 (moderate); E66.01 Morbid (severe) obesity due to excess calories; K21.9 Gastro-esophageal reflux disease without esophagitis; Z91.19 Patient's noncompliance with other medical treatment and regimen; Z99.81 Dependence on supplemental oxygen; Z88.0 Allergy status to penicillin; Z88.8 Allergy status to other drugs, medicaments and biological substances; Z88.2 Allergy status to sulfonamides
CPT/HCPCS: 36415; 71046; 82040; 82247; 82310; 82374; 82435; 82565; 82947; 83880; 84075; 84132; 84155; 84295; 84450; 84460; 84484; 84520; 85025; 85379; 87040; 93005; 94640; 94644; 96374; 99284; J0743; J1650; J2930; J3535; J7050; J7512; J7613

== ENCOUNTER 2018-02-26 10:43 | Emergency (ER) | payer MEDICARE, BC ==
[2018-02-24 07:39] VITALS: Wt 131.5 kg
[~2018-02-26 10:43] MED LIST changes: -DILT240C4 PO; -MECL25TA9 PO
[2018-02-26] MEDS ORDERED: DILTIAZEM CD 120 MG CAPCR PO ONE (11:05)
[2018-02-26] MEDS ORDERED: MECLIZINE HCL 25 MG TAB PO ONE (11:05)
--- NOTE | 2018-02-26 11:05 | ER Report ---
History and Physical Time Seen By MD: 11:06 Hx. of Stated Complaint: PATIENT STATES THAT SHE FEELS LIKE HER HEART IS POUNDING AND HIGH BLOOD PRESSURE; PATIENT WAS DISCHARGED FROM HOSPITAL AND SYMPTOMS STARTED LAST NIGHT HPI/ROS CHIEF COMPLAINT: Dizziness and elevated blood pressure HISTORY OF PRESENT ILLNESS: Patient is a 52-year-old female who was recently admitted to emergency Department for COPD exacerbation. She states that she left the hospital around 2 PM yesterday around 7 PM last night she began feeling some dizziness as well as some "pounding in her chest" also complained of dizziness that seems to be positional. Patient denies any nausea or vomiting. She denies any headache. He was recently switched from metoprolol to Cardizem but has not filled this prescription yet. She did not take her blood pressure pill this morning on pills that her blood pressure is elevated. REVIEW OF SYSTEMS: Respiratory: No cough, no dyspnea. Cardiovascular: No chest pain, no palpitations. Gastrointestinal: No vomiting, no abdominal pain. Musculoskeletal: No back pain. Neurological dizziness Allergies: Coded Allergies: aripiprazole (Verified Allergy, Intermediate, RASH, 02/26/18) lithium (Verified Allergy, Intermediate, RASH, 02/26/18) lurasidone (Verified Allergy, Intermediate, 02/26/18) quetiapine (Verified Allergy, Intermediate, DIZZY, 02/26/18) DIzzy varenicline (Verified Allergy, Intermediate, SWELLING, 02/26/18) ciprofloxacin (Verified Allergy, Mild, N/V, 02/26/18) sulfamethoxazole (Verified Allergy, Mild, HIVES, 02/26/18) topiramate (Verified Allergy, Mild, UPSET STOMACH, 02/26/18) Upset stomach trimethoprim (Verified Allergy, Mild, HIVES, 02/26/18) haloperidol (Verified Adverse Reaction, Severe, DYSTONIC REACTION, 02/26/18) propofol (Verified Adverse Reaction, Severe, HALLUCINATIONS, 02/26/18) PT STATES "I HEARD VOICES TELLING ME TO KILL MYSELF THE NIGHT AFTER I HAD A COLONOSCOPY" amoxicillin (Verified Adverse Reaction, Intermediate, Pruritus , 02/26/18) adhesive tape (Verified Adverse Reaction, Mild, RASH, 02/26/18) fluticasone (Verified Adverse Reaction, Mild, THRUSH, 02/26/18) salmeterol (Verified Adverse Reaction, Mild, THRUSH, 02/26/18) Home Meds Active Scripts Meclizine Hcl (MECLIZINE HCL) 25 Mg Tablet, 25 MG PO Q8H for dizziness, #20 TAB 0 Refills Prov:FRAN FU MD 02/26/18 Diltiazem Hcl (DILTIAZEM 24HR CD) 120 Mg Cap.er.24h, 120 MG PO QDAY for 30 Days, #30 CAP 1 Refill Prov:ARIELLE MCCOY MD 02/25/18 Doxycycline Hyclate (DOXYCYCLINE HYCLATE) 100 Mg Capsule, 100 MG PO BID, #6 CAPSULE Prov:[facility] 02/22/18 Docusate Sodium (COLACE) 100 Mg Capsule, 100 MG PO BID PRN for CONSTIPATION, #60 CAPSULE Prov:[facility] 02/22/18 Montelukast Sodium (SINGULAIR) 10 Mg Tablet, 10 MG PO QDAY, #30 TAB Prov:[facility] 02/22/18 Prednisone 10 Mg Tab (PREDNISONE 10 MG TAB) 10 Mg Tablet, 6 TAB PO QDAY, #63 TAB Take 6 tabs daily for 3 days, then decrease by 1 tab every 3 days until gone. Prov:[facility] 02/22/18 Esomeprazole Magnesium (NEXIUM) 40 Mg Capsule.dr, 1 CAP PO QDAY, #30 CAP Prov:SKINNY EMMANUEL MD 02/01/18 Lactulose (LACTULOSE) 20 Gm/30 Ml Soln, 20 GM PO DAILY, #500 ML Prov:SKINNY EMMANUEL MD 01/15/18 Tiotropium [place] (SPIRIVA) 18 Mcg/Cap Inh, 2 PUFF INH DAILY, #1 INH 11 Refills Prov:SKINNY EMMANUEL MD 05/14/17 Nystatin (NYSTOP) 60 Gm Powder, 1 DONALD TP BID, #1 BOTTLE 0 Refills APPLY TO AFFECTED AREA TWICE A DAY Prov:SKINNY EMMANUEL MD 03/13/17 Reported Medications Oxygen (OXYGEN) Inha, 2 L INH QDAY, L 01/09/18 Budesonide/Formoterol Fumarate (SYMBICORT 80-4.5 MCG INHALER) 10.2 Gm Hfa.aer.ad, 10.2 GM IH BID 12/07/17 Bupropion Hcl (WELLBUTRIN SR) 150 Mg Tablet.er, 150 MG PO QDAY, TAB 11/11/17 Melatonin (MELATONIN) 2.5 Mg Tab.chew, 2.5 MG PO DAILY, TAB.CHEW 11/11/17 Escitalopram Oxalate (ESCITALOPRAM OXALATE) 20 Mg Tablet, 20 MG PO QDAY 11/11/17 Pramipexole Di-Hcl (MIRAPEX) 1 Mg Tablet, 1 MG PO DAILY 11/11/17 Famotidine (FAMOTIDINE) 20 Mg Tablet, 20 MG PO QDAY, TAB 11/11/17 [place]-3/Dha/Epa/Fish Oil (OMEGA-3 FISH OIL 1,000 MG SFGL) 1,000 Mg Capsule, 1000 MG PO BID, CAPSULE 07/06/17 Cholecalciferol (Vitamin D3) (VITAMIN D3) 1,000 Unit Tablet, 1000 UNIT PO QDAY, TAB 06/20/17 Ibuprofen (IBUPROFEN) 200 Mg Tablet, 2 TAB PO Q8H PRN for PAIN, TAB (MOTRIN): TAKE 400 MG EVERY 8 HRS NEEDED FOR PAIN. 02/03/17 Hydroxyzine Pamoate (HYDROXYZINE PAMOATE) 25 Mg Capsule, 25 TAB PO Q8H PRN for ANXIETY/INSOMNIA 01/27/17 Albuterol Sulfate 90 Mcg/Act (PROAIR HFA 90 MCG/ACT) 8.5 Gm Hfa.aer.ad, 2 PUFF IH Q4-6H PRN for DYSPNEA, INHALER 01/27/17 Multivitamin (MULTIVITAMINS) 1 Each Capsule, 1 EACH PO DAILY, CAPSULE 12/08/16 Discontinued Scripts Metoprolol Succinate (METOPROLOL SUCCINATE) 50 Mg Tab.er.24h, 1 TAB PO QDAY, #30 TAB Prov:SKINNY EMMANUEL MD 06/10/17 Azithromycin (ZITHROMAX) 250 Mg Tablet, 2 TAB PO ONCE, #6 TAB 2 tabs now then 1 daily for 4 days Prov:SKINNY EMMANUEL MD 02/18/18 Prednisone (PREDNISONE) 20 Mg Tablet, 60 MG PO QDAY, #12 TAB 0 Refills Prov:GARY RODRIGUEZ MD 02/17/18 Past Medical/Surgical History Past medical history significant for COPD, patient is oxygen dependent, patient is a smoker. History of hypertension, history of restless leg syndrome, history of depression, history of chronic kidney disease. Patient was just discharged yesterday for COPD exacerbation switched from metoprolol to Cardizem. Hx Smoking: Yes Smoking Status: Current: Every Day Smoker, Light Tobacco Smoker Exposure to Second Hand Smoke?: Yes Hx Substance Use Disorder: No Hx Alcohol Use: No Constitutional Vital Sign - Last 24 Hours 02/26/18 02/26/18 02/26/18 02/26/18 10:43 10:47 10:47 10:52 Temp 97.5 Pulse ??? 73 Resp 19 B/P (MAP) 166/90 (115) Pulse Ox 96 O2 Delivery Nasal Cannula O2 Flow Rate 3.0 02/26/18 02/26/18 02/26/18 02/26/18 11:00 11:13 11:30 11:43 Pulse 69 68 Resp 17 17 B/P (MAP) 153/90 (111) 155/91 (112) Pulse Ox 96 96 02/26/18 02/26/18 12:00 12:13 Pulse 67 Resp 16 B/P (MAP) 166/92 (116) Pulse Ox 96 Physical Exam General/Constitutional: Patient is awake, alert, nontoxic and in no acute respiratory distress. Head: Normocephalic and atraumatic. Eyes: Conjunctival clear, Pupils are equal and reactive to light. Extraocular muscles are intact and symmetrical. Sclera are clear and anicteric. Ears:External canals are clear. Tympanic membranes are clear with normal landmarks and light reflex. Nares: No rhinorrhea or bleeding. Turbinates are pink and moist. Oropharyngeal: Mucous membranes are moist. There is no pharyngeal erythema or exudate. There are no palatal petechiae. Uvula is midline and symmetrical. Neck: Supple, no adenopathy. Cardiovascular: Heart is regular rate and rhythm without audible murmurs, rubs or gallops. Pulmonary: Lungs are clear to auscultation bilaterally. There are no wheezes, rales, or rhonchi. Chest rise is symmetrical Abdomen: Soft, nontender, no guarding or peritoneal signs. Extremities: No gross deformities, No peripheral cyanosis. Able to move all 4 extremities. Neuro: Alert and oriented X3, Cranial nerves 2 thru 12 are intact and symmetrical. Skin: No rashes, skin is warm dry and well perfused. Medical Decision Making Data Points Result Diagram: 02/26/18 1025 02/26/18 1025 Laboratory Hematology Test 02/26/18 10:25 Red Blood Count 4.56 M/uL (4.17-5.56) Mean Corpuscular Volume 92.5 fL (80.0-96.0) Mean Corpuscular Hemoglobin 31.3 pg (26.0-33.0) Mean Corpuscular Hemoglobin Concent 33.8 g/dL (32.0-36.0) Red Cell Distribution Width 12.6 % (11.5-14.5) Mean Platelet Volume 9.1 fL (7.2-11.1) Neutrophils (%) (Auto) % (39.4-72.5) Lymphocytes (%) (Auto) % (17.6-49.6) Monocytes (%) (Auto) % (4.1-12.4) Eosinophils (%) (Auto) % (0.4-6.7) Basophils (%) (Auto) % (0.3-1.4) Nucleated RBC Relative Count (auto) /100WBC Neutrophils # (Auto) K/uL (2.0-7.4) Lymphocytes # (Auto) K/uL (1.3-3.6) Monocytes # (Auto) K/uL (0.3-1.0) Eosinophils # (Auto) K/uL (0.0-0.5) Basophils # (Auto) K/uL (0.0-0.1) Nucleated RBC Absolute Count (auto) K/uL Neutrophils % (Manual) 88 % (39.4-72.5) Band Neutrophils % 0 % Lymphocytes % (Manual) 6 % (17.6-49.6) Atypical Lymphocytes % 0 % Monocytes % (Manual) 3 % (4.1-12.4) Eosinophils % (Manual) 0 % (0.4-6.7) Basophils % (Manual) 0 % (0.3-1.4) Metamyelocytes % 1 % Myelocytes % 2 % Peripheral Blood Smear Yes Y/N Sodium Level 136 mmol/L (137-145) Potassium Level 3.7 mmol/L (3.5-5.0) Chloride Level 102 mmol/L (98-107) Carbon Dioxide Level 27 mmol/L (22-31) Blood Urea Nitrogen 25 mg/dl (7-18) Creatinine 1.00 mg/dl (0.52-1.04) Glomerular Filtration Rate Calc 57.8 Random Glucose 108 mg/dl (75-110) Calcium Level 8.7 mg/dl (8.4-10.2) Total Bilirubin 0.5 mg/dl (0.2-1.3) Aspartate Amino Transf (AST/SGOT) 17 U/L (0-35) Alanine Aminotransferase (ALT/SGPT) 26 U/L (0-56) Alkaline Phosphatase 72 U/L (0-126) Troponin I < 0.012 ng/ml B-Type Natriuretic Peptide 46 pg/ml (0-100) Total Protein 6.1 g/dl (6.3-8.2) Albumin 3.5 g/dl (3.5-5.0) Chemistry Test 02/26/18 10:25 White Blood Count 15.6 k/uL (4.5-11.0) Red Blood Count 4.56 M/uL (4.17-5.56) Hemoglobin 14.3 g/dL (12.0-16.0) Hematocrit 42.2 % (34.0-47.0) Mean Corpuscular Volume 92.5 fL (80.0-96.0) Mean Corpuscular Hemoglobin 31.3 pg (26.0-33.0) Mean Corpuscular Hemoglobin Concent 33.8 g/dL (32.0-36.0) Red Cell Distribution Width 12.6 % (11.5-14.5) Platelet Count 232 K/uL (150-450) Mean Platelet Volume 9.1 fL (7.2-11.1) Neutrophils (%) (Auto) % (39.4-72.5) Lymphocytes (%) (Auto) % (17.6-49.6) Monocytes (%) (Auto) % (4.1-12.4) Eosinophils (%) (Auto) % (0.4-6.7) Basophils (%) (Auto) % (0.3-1.4) Nucleated RBC Relative Count (auto) /100WBC Neutrophils # (Auto) K/uL (2.0-7.4) Lymphocytes # (Auto) K/uL (1.3-3.6) Monocytes # (Auto) K/uL (0.3-1.0) Eosinophils # (Auto) K/uL (0.0-0.5) Basophils # (Auto) K/uL (0.0-0.1) Nucleated RBC Absolute Count (auto) K/uL Neutrophils % (Manual) 88 % (39.4-72.5) Band Neutrophils % 0 % Lymphocytes % (Manual) 6 % (17.6-49.6) Atypical Lymphocytes % 0 % Monocytes % (Manual) 3 % (4.1-12.4) Eosinophils % (Manual) 0 % (0.4-6.7) Basophils % (Manual) 0 % (0.3-1.4) Metamyelocytes % 1 % Myelocytes % 2 % Peripheral Blood Smear Yes Y/N Glomerular Filtration Rate Calc 57.8 Calcium Level 8.7 mg/dl (8.4-10.2) Total Bilirubin 0.5 mg/dl (0.2-1.3) Aspartate Amino Transf (AST/SGOT) 17 U/L (0-35) Alanine Aminotransferase (ALT/SGPT) 26 U/L (0-56) Alkaline Phosphatase 72 U/L (0-126) Troponin I < 0.012 ng/ml B-Type Natriuretic Peptide 46 pg/ml (0-100) Total Protein 6.1 g/dl (6.3-8.2) Albumin 3.5 g/dl (3.5-5.0) EKG/Imaging Monitor Interpretation: Normal Sinus Rhythm ED Course/Re-evaluation Clinical Indication for ER IV: IV Access ED Course 02/26/2018 12:14:12 pm EKG troponin and chest x-ray are all unremarkable. I will treat the patient with Antivert and discharged home Decision to Disposition Date: Feb 26, 2018 Decision to Disposition Time: 12:14 Depart Departure Latest Vital Signs Vital Signs Date Time Temp Pulse Resp B/P (MAP) Pulse Ox O2 Delivery O2 Flow Rate FiO2 02/26/18 12:13 67 16 96 02/26/18 12:00 166/92 (116) 02/26/18 10:47 3.0 02/26/18 10:47 97.5 Nasal Cannula Core Temperature (Celsius): 37.23 Impression: Primary Impression: Dizziness Condition: Improved Disposition: HOME OR SELF-CARE Referrals: SKINNY EMMANUEL MD (PCP) New Scripts Meclizine Hcl (MECLIZINE HCL) 25 Mg Tablet 25 MG PO Q8H for dizziness, #20 TAB 0 Refills Prov: FRAN FU MD 02/26/18 Patient Instructions: Dizziness (ED) FRAN FU MD Feb 26, 2018 11:06
[2018-02-26 11:13] LABS: PLATELET COUNT, AUTOMATED 232 K/uL (150-450)
--- NOTE | 2018-02-26 11:24 | EKG ---
FACILITY: [facility] PATIENT NAME: FLORENCIO CRUZ : [id number] MR: [id number] V: [id number] EXAM DATE: ORDERING PHYSICIAN: FRAN FU TECHNOLOGIST: REBEKAH Test Reason : HEART RACING Blood Pressure : / mmHG Vent. Rate : 071 BPM Atrial Rate : 071 BPM P-R Int : 116 ms QRS Dur : 078 ms QT Int : 406 ms P-R-T Axes : 047 023 059 degrees QTc Int : 441 ms Normal sinus rhythm Normal ECG When compared with ECG of 24-FEB-2018 04:00, Borderline criteria for Anterior infarct are no longer present Non-specific change in ST segment in Anterior leads Nonspecific T wave abnormality no longer evident in Anterior leads Confirmed by STEFANI HERNANDEZ ([id number]) on 02/26/2018 6:35:53 PM Referred By: TANK Confirmed By:STEFANI HERNANDEZ
[2018-02-26 12:00] VITALS: BP 166/92
[2018-02-26] MEDS ORDERED: MECL25TA9 PO (12:15)
--- NOTE | 2018-02-26 12:20 | RADIOLOGY IMAGING REPORT ---
FACILITY: PATIENT NAME: Natividad Loaiza : 1965 MR: [id number] V: [id number] EXAM DATE: ORDERING PHYSICIAN: FRAN FU TECHNOLOGIST: Location: [facility] Patient: Natividad Loaiza : 1965 Visit/Account:[id number] Date of Sevice: 02/26/2018 CHEST PA AND LAT Indication: Chest Pain Comparison: Chest x-ray 02/23/2018 Findings: Lungs: Clear. Mediastinum/pulmonary vasculature: Heart size and pulmonary vasculature are normal. Bones/soft tissues: Normal. IMPRESSION: Clear lungs. Report Dictated By: Flex Reardon at 02/26/2018 12:14 PM Report E-Signed By: Flex Reardon at 02/26/2018 12:15 PM [email or web address]
== END 2018-02-26 12:30 | disposition home or self-care (01) ==
LOC: ER 11:14
DX: R42 Dizziness and giddiness (principal); F17.210 Nicotine dependence, cigarettes, uncomplicated
CPT/HCPCS: 71046; 83880; 84484; 85025; 93005; 99284; A9270; J8597; 82040; 82247; 82310; 82374; 82435; 82565; 82947; 84075; 84132; 84155; 84295; 84450; 84460; 84520

== ENCOUNTER → 2018-02-26 | Outpatient (CLI) | payer MEDICARE, BC ==
[2018-02-24 07:39] VITALS: BMI 49.8
[~2018-02-26] MED LIST changes: +DILT120C18 PO; +DILT240C4 PO; +MECL25TA9 PO
== END ==
LOC: AMB 10:16
PROVIDERS: ATTEND Nurse Practitioner
DX: R51 Headache (principal); I10 Essential (primary) hypertension; R09.02 Hypoxemia
CPT/HCPCS: A0425; A0427

== ENCOUNTER 2018-03-03 12:46 | Emergency (ER) | payer MEDICARE, BC ==
[2018-02-24 07:39] VITALS: Wt 128.4 kg
[~2018-03-03 12:46] MED LIST changes: +MECL25TA9 PO
[2018-03-03] MEDS ORDERED: METO25TA23 PO (12:58)
--- NOTE | 2018-03-03 13:03 | ER Report ---
History and Physical Time Seen By MD: 12:58 Hx. of Stated Complaint: PATIENT REPORTS SHORTNESS OF BREATH THAT STARTED THIS MORNING AROUND 10 HPI/ROS CHIEF COMPLAINT: short of breath. HISTORY OF PRESENT ILLNESS: This is a 52 year old female. She is having shortness of breath again. Saw Dr. Tervino on Thursday, and was having some withdrawal symptoms from stopping her Metoprolol. Her breathing had been better, but they started 1/2 dose of her Metoprolol and is now short of breath again. No fevers or chills. Took her inhalers as normal and did help a little. Allergies: Coded Allergies: aripiprazole (Verified Allergy, Intermediate, RASH, 02/26/18) lithium (Verified Allergy, Intermediate, RASH, 02/26/18) lurasidone (Verified Allergy, Intermediate, 02/26/18) quetiapine (Verified Allergy, Intermediate, DIZZY, 02/26/18) DIzzy varenicline (Verified Allergy, Intermediate, SWELLING, 02/26/18) ciprofloxacin (Verified Allergy, Mild, N/V, 02/26/18) sulfamethoxazole (Verified Allergy, Mild, HIVES, 02/26/18) topiramate (Verified Allergy, Mild, UPSET STOMACH, 02/26/18) Upset stomach trimethoprim (Verified Allergy, Mild, HIVES, 02/26/18) haloperidol (Verified Adverse Reaction, Severe, DYSTONIC REACTION, 02/26/18) propofol (Verified Adverse Reaction, Severe, HALLUCINATIONS, 02/26/18) PT STATES "I HEARD VOICES TELLING ME TO KILL MYSELF THE NIGHT AFTER I HAD A COLONOSCOPY" amoxicillin (Verified Adverse Reaction, Intermediate, Pruritus , 02/26/18) adhesive tape (Verified Adverse Reaction, Mild, RASH, 02/26/18) fluticasone (Verified Adverse Reaction, Mild, THRUSH, 02/26/18) salmeterol (Verified Adverse Reaction, Mild, THRUSH, 02/26/18) Home Meds Active Scripts Diltiazem Hcl (DILTIAZEM 24HR CD) 240 Mg Cap.er.24h, 240 MG PO QDAY, #30 CAP.SR.24H 0 Refills Prov:GARY RODRIGUEZ MD 03/03/18 Meclizine Hcl (MECLIZINE HCL) 25 Mg Tablet, 25 MG PO Q8H for dizziness, #20 TAB 0 Refills Prov:FRAN FU MD 02/26/18 Diltiazem Hcl (DILTIAZEM 24HR CD) 120 Mg Cap.er.24h, 120 MG PO QDAY for 30 Days, #30 CAP 1 Refill Prov:ARIELLE MCCOY MD 02/25/18 Doxycycline Hyclate (DOXYCYCLINE HYCLATE) 100 Mg Capsule, 100 MG PO BID, #6 CAPSULE Prov:[facility] 02/22/18 Docusate Sodium (COLACE) 100 Mg Capsule, 100 MG PO BID PRN for CONSTIPATION, #60 CAPSULE Prov:RICESANTI [facility] 02/22/18 Montelukast Sodium (SINGULAIR) 10 Mg Tablet, 10 MG PO QDAY, #30 TAB Prov:RICE,SANTI Paredes [facility] 02/22/18 Prednisone 10 Mg Tab (PREDNISONE 10 MG TAB) 10 Mg Tablet, 6 TAB PO QDAY, #63 TAB Take 6 tabs daily for 3 days, then decrease by 1 tab every 3 days until gone. Prov:[facility] 02/22/18 Esomeprazole Magnesium (NEXIUM) 40 Mg Capsule.dr, 1 CAP PO QDAY, #30 CAP Prov:SKINNY TREVINO MD 02/01/18 Lactulose (LACTULOSE) 20 Gm/30 Ml Soln, 20 GM PO DAILY, #500 ML Prov:SKINNY TREVINO MD 01/15/18 Tiotropium [place] (SPIRIVA) 18 Mcg/Cap Inh, 2 PUFF INH DAILY, #1 INH 11 Refills Prov:SKINNY TREVINO MD 05/14/17 Nystatin (NYSTOP) 60 Gm Powder, 1 DONALD TP BID, #1 BOTTLE 0 Refills APPLY TO AFFECTED AREA TWICE A DAY Prov:SKINNY TREVINO MD 03/13/17 Reported Medications Metoprolol Succinate (METOPROLOL SUCCINATE) 25 Mg Tab.er.24h, 1 TAB PO QDAY, TAB 03/03/18 Oxygen (OXYGEN) Inha, 2 L INH QDAY, L 01/09/18 Budesonide/Formoterol Fumarate (SYMBICORT 80-4.5 MCG INHALER) 10.2 Gm H fa.aer.ad, 10.2 GM IH BID 12/07/17 Bupropion Hcl (WELLBUTRIN SR) 150 Mg Tablet.er, 150 MG PO QDAY, TAB 11/11/17 Melatonin (MELATONIN) 2.5 Mg Tab.chew, 2.5 MG PO DAILY, TAB.CHEW 11/11/17 Escitalopram Oxalate (ESCITALOPRAM OXALATE) 20 Mg Tablet, 20 MG PO QDAY 11/11/17 Pramipexole Di-Hcl (MIRAPEX) 1 Mg Tablet, 1 MG PO DAILY 11/11/17 Famotidine (FAMOTIDINE) 20 Mg Tablet, 20 MG PO QDAY, TAB 11/11/17 [place]-3/Dha/Epa/Fish Oil (OMEGA-3 FISH OIL 1,000 MG SFGL) 1,000 Mg Capsule, 1000 MG PO BID, CAPSULE 07/06/17 Cholecalciferol (Vitamin D3) (VITAMIN D3) 1,000 Unit Tablet, 1000 UNIT PO QDAY, TAB 06/20/17 Ibuprofen (IBUPROFEN) 200 Mg Tablet, 2 TAB PO Q8H PRN for PAIN, TAB (MOTRIN): TAKE 400 MG EVERY 8 HRS NEEDED FOR PAIN. 02/03/17 Hydroxyzine Pamoate (HYDROXYZINE PAMOATE) 25 Mg Capsule, 25 TAB PO Q8H PRN for ANXIETY/INSOMNIA 01/27/17 Albuterol Sulfate 90 Mcg/Act (PROAIR HFA 90 MCG/ACT) 8.5 Gm Hfa.aer.ad, 2 PUFF IH Q4-6H PRN for DYSPNEA, INHALER 01/27/17 Multivitamin (MULTIVITAMINS) 1 Each Capsule, 1 EACH PO DAILY, CAPSULE 12/08/16 Discontinued Scripts Metoprolol Succinate (METOPROLOL SUCCINATE) 50 Mg Tab.er.24h, 1 TAB PO QDAY, #30 TAB Prov:SKINNY TREVINO MD 06/10/17 Reviewed Nurses Notes: Yes Hx Smoking: Yes Smoking Status: Current: Every Day Smoker, Light Tobacco Smoker Exposure to Second Hand Smoke?: Yes Hx Substance Use Disorder: No Hx Alcohol Use: No Constitutional Vital Sign - Last 24 Hours 03/03/18 03/03/18 03/03/18 03/03/18 12:52 12:55 13:16 13:46 Temp 98.7 Pulse 84 69 77 Resp 28 B/P (MAP) 153/85 (107) 138/77 (97) Pulse Ox 92 97 93 O2 Delivery Nasal Cannula 03/03/18 03/03/1803/03/18 14:00 14:16 14:30 Pulse 74 B/P (MAP) 133/81 (98) 139/87 (104) Pulse Ox 94 Physical Exam General Appearance: The patient is alert. No acute distress. Eyes: Pupils are equal, round. Reactive to light. No pallor, injection or icterus. Extraocular movements are intact. ENT: Mucous membranes are moist. Normal oral mucosa. Posterior oropharynx is normal. Neck: Supple and non tender. Respiratory: Lungs have wheezing on expiration. No rales or rhonchi. Cardiovascular: Regular rate and rhythm. No murmurs, gallops or rubs. Normal capillary refill. Gastrointestinal: Abdomen is soft and non tender. Nondistended. Normal active bowel sounds. Neurological: Alert and oriented x3. Skin: Warm and dry. Musculoskeletal: Extremities are nontender. DIFFERENTIAL DIAGNOSIS: After history and physical exam, differential diagnosis was considered for shortness of breath including but not limited to pulmonary infectious process, COPD, asthma, pulmonary embolus and congestive heart failure. Medical Decision Making Data Points Result Diagram: 03/03/18 1343 03/03/18 1343 Laboratory Hematology Test 03/03/18 13:43 Red Blood Count 4.15 M/uL (4.17-5.56) Mean Corpuscular Volume 93.0 fL (80.0-96.0) Mean Corpuscular Hemoglobin 31.2 pg (26.0-33.0) Mean Corpuscular Hemoglobin Concent 33.6 g/dL (32.0-36.0) Red Cell Distribution Width 13.2 % (11.5-14.5) Mean Platelet Volume 8.3 fL (7.2-11.1) Neutrophils (%) (Auto) 92.5 % (39.4-72.5) Lymphocytes (%) (Auto) 5.1 % (17.6-49.6) Monocytes (%) (Auto) 2.1 % (4.1-12.4) Eosinophils (%) (Auto) 0.1 % (0.4-6.7) Basophils (%) (Auto) 0.2 % (0.3-1.4) Nucleated RBC Relative Count (auto) 0.0 /100WBC Neutrophils # (Auto) 11.3 K/uL (2.0-7.4) Lymphocytes # (Auto) 0.6 K/uL (1.3-3.6) Monocytes # (Auto) 0.3 K/uL (0.3-1.0) Eosinophils # (Auto) 0.0 K/uL (0.0-0.5) Basophils # (Auto) 0.0 K/uL (0.0-0.1) Nucleated RBC Absolute Count (auto) 0.00 K/uL Sodium Level 135 mmol/L (137-145) Potassium Level 4.4 mmol/L (3.5-5.0) Chloride Level 101 mmol/L (98-107) Carbon Dioxide Level 30 mmol/L (22-31) Blood Urea Nitrogen 14 mg/dl (7-18) Creatinine 1.00 mg/dl (0.52-1.04) Glomerular Filtration Rate Calc 57.8 Random Glucose 163 mg/dl (75-110) Calcium Level 8.7 mg/dl (8.4-10.2) Total Bilirubin 0.4 mg/dl (0.2-1.3) Aspartate Amino Transf (AST/SGOT) 14 U/L (0-35) Alanine Aminotransferase (ALT/SGPT) 29 U/L (0-56) Alkaline Phosphatase 65 U/L (0-126) Troponin I < 0.012 ng/ml Total Protein 6.0 g/dl (6.3-8.2) Albumin 3.4 g/dl (3.5-5.0) Chemistry Test 03/03/18 13:43 White Blood Count 12.2 k/uL (4.5-11.0) Red Blood Count 4.15 M/uL (4.17-5.56) Hemoglobin 12.9 g/dL (12.0-16.0) Hematocrit 38.5 % (34.0-47.0) Mean Corpuscular Volume 93.0 fL (80.0-96.0) Mean Corpuscular Hemoglobin 31.2 pg (26.0-33.0) Mean Corpuscular Hemoglobin Concent 33.6 g/dL (32.0-36.0) Red Cell Distribution Width 13.2 % (11.5-14.5) Platelet Count 211 K/uL (150-450) Mean Platelet Volume 8.3 fL (7.2-11.1) Neutrophils (%) (Auto) 92.5 % (39.4-72.5) Lymphocytes (%) (Auto) 5.1 % (17.6-49.6) Monocytes (%) (Auto) 2.1 % (4.1-12.4) Eosinophils (%) (Auto) 0.1 % (0.4-6.7) Basophils (%) (Auto) 0.2 % (0.3-1.4) Nucleated RBC Relative Count (auto) 0.0 /100WBC Neutrophils # (Auto) 11.3 K/uL (2.0-7.4) Lymphocytes # (Auto) 0.6 K/uL (1.3-3.6) Monocytes # (Auto) 0.3 K/uL (0.3-1.0) Eosinophils # (Auto) 0.0 K/uL (0.0-0.5) Basophils # (Auto) 0.0 K/uL (0.0-0.1) Nucleated RBC Absolute Count (auto) 0.00 K/uL Glomerular Filtration Rate Calc 57.8 Calcium Level 8.7 mg/dl (8.4-10.2) Total Bilirubin 0.4 mg/dl (0.2-1.3) Aspartate Amino Transf (AST/SGOT) 14 U/L (0-35) Alanine Aminotransferase (ALT/SGPT) 29 U/L (0-56) Alkaline Phosphatase 65 U/L (0-126) Troponin I < 0.012 ng/ml Total Protein 6.0 g/dl (6.3-8.2) Albumin 3.4 g/dl (3.5-5.0) EKG/Imaging EKG Interpretation 12 lead EKG: Rhythm: Normal sinus rhythm, rate 70 [place]: normal QRS: normal ST segments: normal Imaging Exam type: CHEST PA AND LAT History: Shortness of breath, wheezing x48 hours Comparison: March 28, 2018. Findings: There is no evidence of acute appearing infiltrates, pleural effusions or pulmonary edema. No evidence of a pneumothorax or pneumomediastinum. The cardiac silhouette appears normal. IMPRESSION: 1. No acute cardiopulmonary process is seen Report Dictated By: Cris Verma MD at 03/03/2018 3:05 PM ED Course/Re-evaluation Clinical Indication for ER IV: IV Access ED Course The patient's labs and imaging are negative. Some improvement with a DuoNeb treatment. It appears like she is having her symptoms from restarting her metoprolol. I discussed the case with her primary care provider, Dr. Trevino, and we will stop the metoprolol and increase her diltiazem. Decision to Disposition Date: Mar 03, 2018 Decision to Disposition Time: 15:20 Depart Departure Latest Vital Signs Vital Signs Date Time Temp Pulse Resp B/P (MAP) Pulse Ox O2 Delivery O2 Flow Rate FiO2 03/03/18 14:30 139/87 (104) 03/03/18 14:16 74 94 03/03/18 12:52 98.7 28 Nasal Cannula Core Temperature (Celsius): 37.23 Impression: Primary Impression: Shortness of breath Additional Impression: COPD exacerbation Condition: Improved Disposition: HOME OR SELF-CARE Referrals: SKINNY TREVINO MD (PCP) New Scripts Diltiazem Hcl (DILTIAZEM 24HR CD) 240 Mg Cap.er.24h 240 MG PO QDAY, #30 CAP.SR.24H 0 Refills Prov: GARY RODRIGUEZ MD 03/03/18 Patient Instructions: COPD (Chronic Obstructive Pulmonary Disease) (ED) Additional Instructions: Stop your Metoprolol. Start Diltiazem 120mg extended release twice a day. Arrange a follow-up with Dr. Trevino. Problem Qualifiers GARY RODRIGUEZ MD Mar 03, 2018 13:03
[2018-03-03] MEDS ORDERED: ALBUTEROL/IPRATROPIUM 3 ML NEB NEB ONE (13:05)
--- NOTE | 2018-03-03 13:27 | EKG ---
FACILITY: [facility] - [place] PATIENT NAME: FLORENCIO CRUZ : [id number] MR: [id number] V: [id number] EXAM DATE: ORDERING PHYSICIAN: GARY RODRIGUEZ TECHNOLOGIST: Test Reason : Blood Pressure : / mmHG Vent. Rate : 070 BPM Atrial Rate : 070 BPM P-R Int : 118 ms QRS Dur : 078 ms QT Int : 396 ms P-R-T Axes : 047 030 068 degrees QTc Int : 427 ms Normal sinus rhythm Normal ECG When compared with ECG of 26-FEB-2018 11:17, No significant change was found Confirmed by Lele Cox ([id number]) on 03/03/2018 6:54:42 PM Referred By: Confirmed By:Lele Myers
[2018-03-03 13:56] LABS: PLATELET COUNT, AUTOMATED 211 K/uL (150-450)
--- NOTE | 2018-03-03 15:11 | RADIOLOGY IMAGING REPORT ---
FACILITY: [facility] PATIENT NAME: Natividad Loaiza : 1965 MR: [id number] V: [id number] EXAM DATE: ORDERING PHYSICIAN: GARY RODRIGUEZ TECHNOLOGIST: Location: [facility] [place] Patient: Natividad Loaiza : 1965 Visit/Account:[id number] Date of Sevice: 03/03/2018 Exam type: CHEST PA AND LAT History: Shortness of breath, wheezing x48 hours Comparison: March 28, 2018. Findings: There is no evidence of acute appearing infiltrates, pleural effusions or pulmonary edema. No eviden ce of a pneumothorax or pneumomediastinum. The cardiac silhouette appears normal. IMPRESSION: 1. No acute cardiopulmonary process is seen Report Dictated By: Cris Verma MD at 03/03/2018 3:05 PM Report E-Signed By: Cris Verma MD at 03/03/2018 3:07 PM WSN:[id number]
[2018-03-03] MEDS ORDERED: DILT240C4 PO (15:22)
[2018-03-03 15:30] VITALS: BP 126/73
== END 2018-03-03 15:35 | disposition home or self-care (01) ==
LOC: ER 12:54
DX: J44.1 Chronic obstructive pulmonary disease with (acute) exacerbation (principal); F17.210 Nicotine dependence, cigarettes, uncomplicated
CPT/HCPCS: 71046; 84484; 85025; 93005; 99284; J7620; 82040; 82247; 82310; 82374; 82435; 82565; 82947; 84075; 84132; 84155; 84295; 84450; 84460; 84520

== ENCOUNTER 2018-03-06 05:01 | Emergency (ER) | payer MEDICARE, BC ==
[2018-02-24 07:39] VITALS: Wt 128.4 kg
--- NOTE | 2018-03-06 05:18 | ER Report ---
History and Physical Time Seen By MD: 05:07 Hx. of Stated Complaint: PT APPEARS TO BE HAVING A PSEUDO PSYCH EPISODE. (GARY RODRIGUEZ MD) HPI/ROS CHIEF COMPLAINT: non-responsive HISTORY OF PRESENT ILLNESS: This is a 52 year old female. She called 911 and then hung up. EMS and law enforcement responded. She was laying in bed, not responding. Vitals were normal and no apparent distress. She did not respond to verbal or painful stimuli. Because she lives in a hoarding environment, and there is trash and a narrow path through the house to her bed and she is very obese, further EMS personnel were called to help. Other EMS arrive who know her and know that she has had multiple episodes of this type of behavior. They moved her legs off the bed and told her to get up and walk to the gurney, which she did after law enforcement also told her that they would charge her for a fake 911 call. She got up and walked to the gurney, acting like she was sleep- walking. She answered a few yes-no questions until she then started to mumble and then again was non-responsive. She had voluntary movements and controlled movements all the way in to the ER. On arrival, she would no talk to me or staff, although would move her arm to assist with blood pressure cuff and vitals as well as self-protective actions although no response to verbal or sternal rub. She did call yesterday evening, stating that she accidentally took two of her Diltiazem 120mg extended release tablets in the morning and wanted to know if this was dangerous, or if she should take her night-time dose. REVIEW OF SYSTEMS: unable to obtain. (GARY RODRIGUEZ MD) Allergies: Coded Allergies: aripiprazole (Verified Allergy, Intermediate, RASH, 03/06/18) lithium (Verified Allergy, Intermediate, RASH, 03/06/18) lurasidone (Verified Allergy, Intermediate, 03/06/18) quetiapine (Verified Allergy, Intermediate, DIZZY, 03/06/18) DIzzy varenicline (Verified Allergy, Intermediate, SWELLING, 03/06/18) ciprofloxacin (Verified Allergy, Mild, N/V, 03/06/18) sulfamethoxazole (Verified Allergy, Mild, HIVES, 03/06/18) topiramate (Verified Allergy, Mild, UPSET STOMACH, 03/06/18) Upset stomach trimethoprim (Verified Allergy, Mild, HIVES, 03/06/18) haloperidol (Verified Adverse Reaction, Severe, DYSTONIC REACTION, 03/06/18) propofol (Verified Adverse Reaction, Severe, HALLUCINATIONS, 03/06/18) PT STATES "I HEARD VOICES TELLING ME TO KILL MYSELF THE NIGHT AFTER I HAD A COLONOSCOPY" amoxicillin (Verified Adverse Reaction, Intermediate, Pruritus , 03/06/18) adhesive tape (Verified Adverse Reaction, Mild, RASH, 03/06/18) fluticasone (Verified Adverse Reaction, Mild, THRUSH, 03/06/18) salmeterol (Verified Adverse Reaction, Mild, THRUSH, 03/06/18) Home Meds Active Scripts Diltiazem Hcl (DILTIAZEM 24HR CD) 240 Mg Cap.er.24h, 240 MG PO QDAY, #30 CAP.SR.24H 0 Refills Prov:GAYR RODRIGUEZ MD 03/03/18 Meclizine Hcl (MECLIZINE HCL) 25 Mg Tablet, 25 MG PO Q8H for dizziness, #20 TAB 0 Refills Prov:FRAN FU MD 02/26/18 Diltiazem Hcl (DILTIAZEM 24HR CD) 120 Mg Cap.er.24h, 120 MG PO QDAY for 30 Days, #30 CAP 1 Refill Prov:ARIELLE MCCOY MD 02/25/18 Doxycycline Hyclate (DOXYCYCLINE HYCLATE) 100 Mg Capsule, 100 MG PO BID, #6 CAP [place] Prov:[facility] 02/22/18 Docusate Sodium (COLACE) 100 Mg Capsule, 100 MG PO BID PRN for CONSTIPATION, #60 CAPSULE Prov:[facility] 02/22/18 Montelukast Sodium (SINGULAIR) 10 Mg Tablet, 10 MG PO QDAY, #30 TAB Prov:[facility] 02/22/18 Prednisone 10 Mg Tab (PREDNISONE 10 MG TAB) 10 Mg Tablet, 6 TAB PO QDAY, #63 TAB Take 6 tabs daily for 3 days, then decrease by 1 tab every 3 days until gone. Prov:[facility] 02/22/18 Esomeprazole Magnesium (NEXIUM) 40 Mg Capsule.dr, 1 CAP PO QDAY, #30 CAP Prov:SKINNY EMMANUEL MD 02/01/18 Lactulose (LACTULOSE) 20 Gm/30 Ml Soln, 20 GM PO DAILY, #500 ML Prov:SKINNY EMMANUEL MD 01/15/18 Tiotropium [place] (SPIRIVA) 18 Mcg/Cap Inh, 2 PUFF INH DAILY, #1 INH 11 Refills Prov:SKINNY EMMANUEL MD 05/14/17 Nystatin (NYSTOP) 60 Gm Powder, 1 DONALD TP BID, #1 BOTTLE 0 Refills APPLY TO AFFECTED AREA TWICE A DAY Prov:SKINNY EMMANUEL MD 03/13/17 Reported Medications Metoprolol Succinate (METOPROLOL SUCCINATE) 25 Mg Tab.er.24h, 1 TAB PO QDAY, TAB 03/03/18 Oxygen (OXYGEN) Inha, 2 L INH QDAY, L 01/09/18 Budesonide/Formoterol Fumarate (SYMBICORT 80-4.5 MCG INHALER) 10.2 Gm Hfa.aer.ad, 10.2 GM IH BID 12/07/17 Bupropion Hcl (WELLBUTRIN SR) 150 Mg Tablet.er, 150 MG PO QDAY, TAB 11/11/17 Melatonin (MELATONIN) 2.5 Mg Tab.chew, 2.5 MG PO DAILY, TAB.CHEW 11/11/17 Escitalopram Oxalate (ESCITALOPRAM OXALATE) 20 Mg Tablet, 20 MG PO QDAY 11/11/17 Pramipexole Di-Hcl (MIRAPEX) 1 Mg Tablet, 1 MG PO DAILY 11/11/17 Famotidine (FAMOTIDINE) 20 Mg Tablet, 20 MG PO QDAY, TAB 11/11/17 [place]-3/Dha/Epa/Fish Oil (OMEGA-3 FISH OIL 1,000 MG SFGL) 1,000 Mg Capsule, 1000 MG PO BID, CAPSULE 07/06/17 Cholecalciferol (Vitamin D3) (VITAMIN D3) 1,000 Unit Tablet, 1000 UNIT PO QDAY, TAB 06/20/17 Ibuprofen (IBUPROFEN) 200 Mg Tablet, 2 TAB PO Q8H PRN for PAIN, TAB (MOTRIN): TAKE 400 MG EVERY 8 HRS NEEDED FOR PAIN. 02/03/17 Hydroxyzine Pamoate (HYDROXYZINE PAMOATE) 25 Mg Capsule, 25 TAB PO Q8H PRN for ANXIETY/INSOMNIA 01/27/17 Albuterol Sulfate 90 Mcg/Act (PROAIR HFA 90 MCG/ACT) 8.5 Gm Hfa.aer.ad, 2 PUFF IH Q4-6H PRN for DYSPNEA, INHALER 01/27/17 Multivitamin (MULTIVITAMINS) 1 Each Capsule, 1 EACH PO DAILY, CAPSULE 12/08/16 Unable To Obtain Past Medical: Unable to Obtain/Update (GARY RODRIGUEZ MD) Reviewed Nurses Notes: Yes (GARY RODRIGUEZ MD) Hx Smoking: Yes Smoking Status: Current: Every Day Smoker, Light Tobacco Smoker Exposure to Second Hand Smoke?: Yes Hx Substance Use Disorder: No Hx Alcohol Use: No (GARY RODRIGUEZ MD) Constitutional Vital Sign - Last 24 Hours 03/06/18 03/06/18 03/06/18 03/06/18 05:03 05:03 05:16 05:30 Temp 97.9 Pulse 77 72 Resp 16 B/P (MAP) 200/101 200/101 (134) 153/90 (111) Pulse Ox 94 95 O2 Delivery Room Air 03/06/18 03/06/18 03/06/18 03/06/18 05:31 05:46 06:16 06:31 Pulse 71 70 74 74 Pulse Ox 96 96 97 96 03/06/18 03/06/18 03/06/18 03/06/18 06:46 06:51 07:13 07:17 Pulse 74 72 Resp 20 B/P (MAP) 154/83 (106) Pulse Ox 96 96 89 O2 Delivery Room Air 03/06/18 07:17 Pulse Ox 89 (YUDI VALADEZ MD) Physical Exam General Appearance: Appears to be aware of her surroundings and what is going on, but not responding to verbal or painful stimuli. No immediate need for airway protection. No acute distress. Non-toxic in appearance. Eyes: When opening her eyelids to check pupils, she rolls her eyes downward to avoid me looking at them. Brief glimpse shows that pupils are equal, round and reactive to light. No pallor, injection or icterus. Extraocular movements appear intact. ENT: Mucous membranes are moist. Normal oral mucosa. Gag reflex is intact. Posterior oropharynx is normal. Normal tympanic membranes and canals. Neck: Supple and no apparent tenderness. No lymphadenopathy. Respiratory: Lungs are clear to auscultation. Breathing is easy and unlabored and there are no retractions or accessory muscle use. Cardiovascular: Regular rate and rhythm. No murmurs, gallops or rubs. Normal capillary refill. No edema. Gastrointestinal: Abdomen is obese, soft and non apparent tenderness with palpation. Nondistended. No evidence of rebound or guarding. No masses or organomegaly. Normal active bowel sounds. Neurological: Will not respond, although appears to make voluntary and protective movements. Not able to perform full exam. Skin: Warm and dry. No rashes. Musculoskeletal: No deformities. No apparent pain with palpation. DIFFERENTIAL DIAGNOSIS: After history and physical exam, differential diagnosis was considered for non-responsive patient, although this appears most likely factitious in nature. Will do blood work, urine testing and imaging to rule out other causes. ([facility]) Medical Decision Making Data Points Result Diagram: 03/06/18 0455 03/06/18 0455 Laboratory Hematology Test 03/06/18 04:55 03/06/18 06:40 03/06/18 07:51 Red Blood Count 4.44 M/uL (4.17-5.56) Mean Corpuscular Volume 93.1 fL (80.0-96.0) Mean Corpuscular Hemoglobin 31.9 pg (26.0-33.0) Mean Corpuscular Hemoglobin Concent 34.3 g/dL (32.0-36.0) Red Cell Distribution Width 13.4 % (11.5-14.5) Mean Platelet Volume 8.6 fL (7.2-11.1) Neutrophils (%) (Auto) 71.9 % (39.4-72.5) Lymphocytes (%) (Auto) 18.9 % (17.6-49.6) Monocytes (%) (Auto) 8.1 % (4.1-12.4) Eosinophils (%) (Auto) 0.4 % (0.4-6.7) Basophils (%) (Auto) 0.7 % (0.3-1.4) Nucleated RBC Relative Count (auto) 0.0 /100WBC Neutrophils # (Auto) 7.7 K/uL (2.0-7.4) Lymphocytes # (Auto) 2.0 K/uL (1.3-3.6) Monocytes # (Auto) 0.9 K/uL (0.3-1.0) Eosinophils # (Auto) 0.0 K/uL (0.0-0.5) Basophils # (Auto) 0.1 K/uL (0.0-0.1) Nucleated RBC Absolute Count (auto) 0.00 K/uL Sodium Level 137 mmol/L (137-145) Potassium Level 3.8 mmol/L (3.5-5.0) Chloride Level 101 mmol/L (98-107) Carbon Dioxide Level 29 mmol/L (22-31) Blood Urea Nitrogen 18 mg/dl (7-18) Creatinine 1.20 mg/dl (0.52-1.04) Glomerular Filtration Rate Calc 46.8 Random Glucose 97 mg/dl (75-110) Calcium Level 9.6 mg/dl (8.4-10.2) Magnesium Level 2.2 mg/dl (1.7-2.2) Total Bilirubin 0.4 mg/dl (0.2-1.3) Aspartate Amino Transf (AST/SGOT) 11 U/L (0-35) Alanine Aminotransferase (ALT/SGPT) 28 U/L (0-56) Alkaline Phosphatase 77 U/L (0-126) Total Protein 6.8 g/dl (6.3-8.2) Albumin 4.0 g/dl (3.5-5.0) Salicylates Level < 10 mg/L Salicylate Last Dose Date unk Acetaminophen Level < 10 ug/ml Serum Alcohol < 10 mg/dl Urine Color Straw Urine Clarity Clear Urine pH 6.0 pH (4.8-9.5) Urine Specific [place] 1.012 Urine Protein Negative mg/dL (NEGATIVE) Urine Glucose (UA) Negative mg/dL (NEGATIVE) Urine Ketones Negative mg/dL (NEGATIVE) Urine Blood Negative (NEGATIVE) Urine Nitrite Negative (NEGATIVE) Urine Bilirubin Negative (NEGATIVE) Urine Urobilinogen Negative mg/dL (0.2-1.9) Urine Leukocyte Esterase Negative (NEGATIVE) Urine RBC <1 /HPF (0-2/HPF) Urine WBC <1 /HPF (0-5/HPF) Urine Squamous Epithelial Cells Many /LPF (</=FEW) Urine Bacteria Negative /HPF (NONE-FEW) Urine Mucus None /HPF (NONE-FEW) Urine HCG, Qualitative Negative (NEGATIVE) Urine Opiates Screen Negative Urine Barbiturates Screen Negative Ur Tricyclic Antidepressants Screen Negative Urine Phencyclidine Screen Negative Urine Amphetamines Screen Negative Urine Benzodiazepines Screen Negative Urine Cocaine Screen Negative Urine Cannabinoids Screen Negative Carboxyhemoglobin 6.7 % (< 5.0) Chemistry Test 03/06/18 04:55 03/06/18 06:40 03/06/18 07:51 White Blood Count 10.7 k/uL (4.5-11.0) Red Blood Count 4.44 M/uL (4.17-5.56) Hemoglobin 14.2 g/dL (12.0-16.0) Hematocrit 41.3 % (34.0-47.0) Mean Corpuscular Volume 93.1 fL (80.0-96.0) Mean Corpuscular Hemoglobin 31.9 pg (26.0-33.0) Mean Corpuscular Hemoglobin Concent 34.3 g/dL (32.0-36.0) Red Cell Distribution Width 13.4 % (11.5-14.5) Platelet Count 215 K/uL (150-450) Mean Platelet Volume 8.6 fL (7.2-11.1) Neutrophils (%) (Auto) 71.9 % (39.4-72.5) Lymphocytes (%) (Auto) 18.9 % (17.6-49.6) Monocytes (%) (Auto) 8.1 % (4.1-12.4) Eosinophils (%) (Auto) 0.4 % (0.4-6.7) Basophils (%) (Auto) 0.7 % (0.3-1.4) Nucleated RBC Relative Count (auto) 0.0 /100WBC Neutrophils # (Auto) 7.7 K/uL (2.0-7.4) Lymphocytes # (Auto) 2.0 K/uL (1.3-3.6) Monocytes # (Auto) 0.9 K/uL (0.3-1.0) Eosinophils # (Auto) 0.0 K/uL (0.0-0.5) Basophils # (Auto) 0.1 K/uL (0.0-0.1) Nucleated RBC Absolute Count (auto) 0.00 K/uL Glomerular Filtration Rate Calc 46.8 Calcium Level 9.6 mg/dl (8.4-10.2) Magnesium Level 2.2 mg/dl (1.7-2.2) Total Bilirubin 0.4 mg/dl (0.2-1.3) Aspartate Amino Transf (AST/SGOT) 11 U/L (0-35) Alanine Aminotransferase (ALT/SGPT) 28 U/L (0-56) Alkaline Phosphatase 77 U/L (0-126) Total Protein 6.8 g/dl (6.3-8.2) Albumin 4.0 g/dl (3.5-5.0) Salicylates Level < 10 mg/L Salicylate Last Dose Date unk Acetaminophen Level < 10 ug/ml Serum Alcohol < 10 mg/dl Urine Color Straw Urine Clarity Clear Urine pH 6.0 pH (4.8-9.5) Urine Specific [place] 1.012 Urine Protein Negative mg/dL (NEGATIVE) Urine Glucose (UA) Negative mg/dL (NEGATIVE) Urine Ketones Negative mg/dL (NEGATIVE) Urine Blood Negative (NEGATIVE) Urine Nitrite Negative (NEGATIVE) Urine Bilirubin Negative (NEGATIVE) Urine Urobilinogen Negative mg/dL (0.2-1.9) Urine Leukocyte Esterase Negative (NEGATIVE) Urine RBC <1 /HPF (0-2/HPF) Urine WBC <1 /HPF (0-5/HPF) Urine Squamous Epithelial Cells Many /LPF (</=FEW) Urine Bacteria Negative /HPF (NONE-FEW) Urine Mucus None /HPF (NONE-FEW) Urine HCG, Qualitative Negative (NEGATIVE) Urine Opiates Screen Negative Urine Barbiturates Screen Negative Ur Tricyclic Antidepressants Screen Negative Urine Phencyclidine Screen Negative Urine Amphetamines Screen Negative Urine Benzodiazepines Screen Negative Urine Cocaine Screen Negative Urine Cannabinoids Screen Negative Carboxyhemoglobin 6.7 % (< 5.0) Toxicology Test 03/06/18 04:55 03/06/18 06:40 Salicylates Level < 10 mg/L Salicylate Last Dose Date unk Acetaminophen Level < 10 ug/ml Serum Alcohol < 10 mg/dl Urine Opiates Screen Negative Urine Barbiturates Screen Negative Ur Tricyclic Antidepressants Screen Negative Urine Phencyclidine Screen Negative Urine Amphetamines Screen Negative Urine Benzodiazepines Screen Negative Urine Cocaine Screen Negative Urine Cannabinoids Screen Negative Urinalysis Test 03/06/18 06:40 Urine Color Straw Urine Clarity Clear Urine pH 6.0 pH (4.8-9.5) Urine Specific [place] 1.012 Urine Protein Negative mg/dL (NEGATIVE) Urine Glucose (UA) Negative mg/dL (NEGATIVE) Urine Ketones Negative mg/dL (NEGATIVE) Urine Blood Negative (NEGATIVE) Urine Nitrite Negative (NEGATIVE) Urine Bilirubin Negative (NEGATIVE) Urine Urobilinogen Negative mg/dL (0.2-1.9) Urine Leukocyte Esterase Negative (NEGATIVE) Urine RBC <1 /HPF (0-2/HPF) Urine WBC <1 /HPF (0-5/HPF) Urine Squamous Epithelial Cells Many /LPF (</=FEW) Urine Bacteria Negative /HPF (NONE-FEW) Urine Mucus None /HPF (NONE-FEW) Urine HCG, Qualitative Negative (NEGATIVE) (YUDI VALADEZ MD) EKG/Imaging EKG Interpretation 12 lead EKG: Rhythm: normal sinus rhythm, rate 71 [place]: normal QRS: normal ST segments: normal (GARY RODRIGUEZ MD) ED Course/Re-evaluation Clinical Indication for ER IV: Hydration, IV Access ED Course Shortly after my initial evaluation, staff said that she was starting to talk a little and respond. I went back in and was able to talk to her and do a little more of the exam. She says she is very tired. She says she has some abdominal pain. Asked if she took extra medicines or something to hurt herself and she denies this. I reminded her that she has done this in the past, but she denies depression and says she is not doing this on purpose. Denies chest pain or breathing problems. She is still not participating fully. Decision to Disposition Date: Mar 06, 2018 Decision to Disposition Time: 07:00 (GARY RODRIGUEZ MD) Decision to Disposition Date: Mar 06, 2018 Decision to Disposition Time: 08:40 (YUDI VALADEZ MD) Depart Departure Latest Vital Signs Vital Signs Date Time Temp Pulse Resp B/P (MAP) Pulse Ox O2 Delivery O2 Flow Rate FiO2 03/06/18 07:17 89 03/06/18 07:17 20 Room Air 03/06/18 07:13 154/83 (106) 03/06/18 06:51 72 03/06/18 05:03 97.9 (YUDI VALADEZ MD) Core Temperature (Celsius): 37.23 (GARY RODRIGUEZ MD) Impression: Primary Impression: Fatigue Condition: Improved Disposition: HOME OR SELF-CARE Referrals: SKINNY EMMANUEL MD (PCP) Patient Instructions: Fatigue (DC) Problem Qualifiers Primary Impression: Fatigue Fatigue type: unspecified Qualified Codes: R53.83 - Other fatigue GARY RODRIGUEZ MD Mar 06, 2018 05:18 YUDI VALADEZ MD Mar 06, 2018 08:39
--- NOTE | 2018-03-06 05:27 | EKG ---
[facility] PATIENT NAME: FLORENCIO CRUZ : [id number] MR: [id number] V: [id number] EXAM DATE: ORDERING PHYSICIAN: GARY RODRIGUEZ TECHNOLOGIST: EMILY Test Reason : ALTERD MENTAL STATUS Blood Pressure : / mmHG Vent. Rate : 074 BPM Atrial Rate : 074 BPM P-R Int : 126 ms QRS Dur : 080 ms QT Int : 404 ms P-R-T Axes : 065 065 085 degrees QTc Int : 448 ms Normal sinus rhythm Normal ECG When compared with ECG of 03-MAR-2018 13:15, No significant change was found Confirmed by STEFANI HERNANDEZ ([id number]) on 03/06/2018 6:37:54 AM Referred By: Confirmed By:STEFANI HERNANDEZ
[2018-03-06 05:32] LABS: PLATELET COUNT, AUTOMATED 215 K/uL (150-450)
[2018-03-06] MEDS ORDERED: IOPAMIDOL 76% 75 ML INFUS BTL 75 ML ONE (05:34)
--- NOTE | 2018-03-06 06:41 | RADIOLOGY IMAGING REPORT ---
FACILITY: [facility] [place] PATIENT NAME: Natividad Loaiza : 1965 MR: [id number] V: [id number] EXAM DATE: ORDERING PHYSICIAN: GARY RODRIGUEZ TECHNOLOGIST: Location: [facility] [place] Patient: Natividad Loaiza : 1965 Visit/Account:[id number] Date of Sevice: 03/06/2018 CT Head without contrast Indication: Altered mental status. Comparison: 10/15/2016 Technique: Axial CT images were obtained through the brain from the skull base to the vertex without administration of IV contrast. Reformatted coronal and sagittal images were also obtained. One of the following dose optimization techniques was utilized in the performance of this exam: Autom ated exposure control; adjustment of the mA and/or kV according to the patient's size; or use of an i terative reconstruction technique. Specific details can be referenced in the facility's radiology C T exam operational policy. Findings: No evidence of mass, mass effect, or midline shift. No acute intracranial hemorrhage or acute territorial infarction. Areas of low-attenuation are seen within the periventricular white matter which overall have a simila r appearance and distribution to the prior study. This may reflect chronic small vessel ischemia. Ventricles are normal in size and are symmetric from right to left. The visualized paranasal sinuses and mastoid air cells are clear. IMPRESSION: 1. No acute intracranial abnormality. Report Dictated By: Gunner Cardona at 03/06/2018 6:30 AM Report E-Signed By: Gunner Cardona at 03/06/2018 6:37 AM WSN:[id number]
--- NOTE | 2018-03-06 06:43 | RADIOLOGY IMAGING REPORT ---
FACILITY: [facility] PATIENT NAME: Natividad Loaiza : 1965 MR: [id number] V: [id number] EXAM DATE: ORDERING PHYSICIAN: GARY RODRIGUEZ TECHNOLOGIST: Location: [facility] [place] Patient: Natividad Loaiza : 1965 Visit/Account:[id number] Date of Sevice: 03/06/2018 CHEST SINGLE AP Indication: Altered metal status. Abdominal pain. Comparison: 03/03/2018 Findings: The lungs are clear. No pneumothorax or pleural effusion. Heart size is normal. IMPRESSION: 1. No acute cardiopulmonary process. Report Dictated By: Gunner Cardona at 03/06/2018 6:37 AM Report E-Signed By: Gunner Cardona at 03/06/2018 6:40 AM WSN:[id number]
--- NOTE | 2018-03-06 06:57 | RADIOLOGY IMAGING REPORT ---
FACILITY: [facility] [place] PATIENT NAME: Natividad Loaiza : 1965 MR: [id number] V: [id number] EXAM DATE: ORDERING PHYSICIAN: GARY RODRIGUEZ TECHNOLOGIST: Location: [facility] [place] Patient: Natividad Loaiza : 1965 Visit/Account:[id number] Date of Sevice: 03/06/2018 Computed tomograpy abdomen and pelvis with IV contrast Indication: Altered mental status. Abdominal pain. Comparison: 02/14/2018. Technique: Transaxial computed tomography images were obtained through the abdomen and pelvis follo wing the injection of nonionic iodinated intravenous contrast. Reformatted coronal and sagittal image s were also obtained. One of the following dose optimization techniques was utilized in the performance of this exam: Autom ated exposure control; adjustment of the mA and/or kV according to the patient's size; or use of an i terative reconstruction technique. Specific details can be referenced in the facility's radiology C T exam operational policy. Contrast: 75 ml of Isovue-370 IV contrast. Findings: Lower lung fountain: Minimal dependent atelectasis. Liver: No focal parenchymal abnormality of the liver. Biliary: There has been previous cholecystectomy. No biliary dilatation. Pancreas: Normal appearance. Spleen: Normal appearance. Adrenal glands: Unremarkable. Kidneys / retroperitoneum: No stones or hydronephrosis. Small exophytic right renal cyst is again see n. Focal areas of perinephric stranding are also unchanged. Bowel / peritoneum / mesenteries: No colonic wall thickening or pericolonic inflammation is identifie d. Moderate amount of stool is seen within the right colon. Appendix is normal. No dilated small mack l loops. Lymph node assessment: No pathologic adenopathy identified. Pelvic structures: Uterus appears enlarged. This was seen on the prior study. Uterine fundus has s lightly lobulated margins. This may reflect underlying fibroids. No significant change. A round low-a ttenuation lesion is seen in the left adnexa which is larger on today's exam. This measures 2.6 cm in size (previously 1.7 cm). This is most consistent with an ovarian cyst. Correlate clinically. Vessels: Scattered atherosclerotic calcifications seen throughout a nonaneurysmal abdominal aorta and branches. Musculoskeletal / Body wall: Multilevel degenerative disc disease involves the spine most pronounced at L5-S1. IMPRESSION: 1. No acute inflammatory process identified within the abdomen or the pelvis. 2. Uterine enlargement without change. This may reflect an underlying fibroid uterus. Correlate clini pipe. Consider ultrasound for further evaluation. 3. 2.6 cm cystic lesion within the left adnexa which is larger when compared to the prior exam. Appea damián would favor an ovarian cyst. Correlate clinically. In a patient this age, consider short interv al follow-up ultrasound to ensure resolution. 4. Multilevel degenerative disc disease of the spine. Report Dictated By: Gunner Cardona at 03/06/2018 6:40 AM Report E-Signed By: Gunner Cardona at 03/06/2018 6:54 AM WSN:[id number]
[2018-03-06 08:30] VITALS: BP 142/89
== END 2018-03-06 09:08 | disposition home or self-care (01) ==
LOC: ER 06:54
DX: R53.83 Other fatigue (principal)
CPT/HCPCS: 36415; 70450; 71045; 74177; 80305; 81001; 81025; 82375; 83735; 84443; 85025; 93005; 99284; G0480; Q9967; 80320; 80329; 82040; 82247; 82310; 82374; 82435; 82565; 82947; 84075; 84132; 84155; 84295; 84450; 84460; 84520

== ENCOUNTER → 2018-03-06 | Outpatient (CLI) | payer MEDICARE, BC ==
[2018-02-24 07:39] VITALS: BMI 49.8
[~2018-03-06] MED LIST changes: +DILT240C4 PO
== END ==
LOC: AMB 09:03
PROVIDERS: ATTEND Nurse Practitioner
DX: R53.1 Weakness (principal); Z99.81 Dependence on supplemental oxygen
CPT/HCPCS: A0425; A0428

== ENCOUNTER → 2018-03-06 | Outpatient (CLI) | payer MEDICARE, BC ==
[2018-02-24 07:39] VITALS: BMI 49.8
== END ==
LOC: AMB 04:23
PROVIDERS: ATTEND Nurse Practitioner
DX: R41.82 Altered mental status, unspecified (principal); R53.1 Weakness; I48.91 Unspecified atrial fibrillation
CPT/HCPCS: A0425; A0427

== ENCOUNTER → 2018-03-18 | Outpatient (CLI) | payer MEDICARE, BC ==
[2018-02-24 07:39] VITALS: BMI 49.8
[~2018-03-18] MED LIST changes: +DILT120C12 PO; -DILT120C18 PO; +FURO-47 PO
== END ==
LOC: LAB 14:55
PROVIDERS: ATTEND Emergency Medicine
DX: R79.89 Other specified abnormal findings of blood chemistry (principal)
CPT/HCPCS: 36415; 82310; 82374; 82435; 82565; 82947; 84132; 84295; 84520

== ENCOUNTER 2018-03-20 12:56 | Emergency (ER) | payer BC, MEDICARE ==
[2018-02-24 07:39] VITALS: Wt 127.0 kg
[~2018-03-20 12:56] MED LIST changes: -FURO-47 PO
--- NOTE | 2018-03-20 13:10 | ER Report ---
History and Physical Time Seen By MD: 13:10 HPI/ROS CHIEF COMPLAINT: leg swelling HISTORY OF PRESENT ILLNESS: She with cleaning of bilateral lower extremity edema. Patient was seen by her primary care provider on March 18 and started on low-dose Lasix. She stating that she tried compression stockings and elevation but the swelling seems to be worsening. She has a history of chronic COPD and is on O2 therapy around the clock. She denies any fevers or chills. She denies any new rashes. Last basic metabolic panel shows creatinine of 1 with a GFR of 57.8 and this was on 03/18/2018 REVIEW OF SYSTEMS: Respiratory: No cough, no dyspnea. Cardiovascular: No chest pain, no palpitations. Gastrointestinal: No vomiting, no abdominal pain. Musculoskeletal: No back pain. Allergies: Coded Allergies: aripiprazole (Verified Allergy, Intermediate, RASH, 03/06/18) lithium (Verified Allergy, Intermediate, RASH, 03/06/18) lurasidone (Verified Allergy, Intermediate, 03/06/18) quetiapine (Verified Allergy, Intermediate, DIZZY, 03/06/18) DIzzy varenicline (Verified Allergy, Intermediate, SWELLING, 03/06/18) ciprofloxacin (Verified Allergy, Mild, N/V, 03/06/18) sulfamethoxazole (Verified Allergy, Mild, HIVES, 03/06/18) topiramate (Verified Allergy, Mild, UPSET STOMACH, 03/06/18) Upset stomach trimethoprim (Verified Allergy, Mild, HIVES, 03/06/18) metoprolol (Unverified Allergy, Unknown, 03/18/18) dyspnea haloperidol (Verified Adverse Reaction, Severe, DYSTONIC REACTION, 03/06/18) propofol (Verified Adverse Reaction, Severe, HALLUCINATIONS, 03/06/18) PT STATES "I HEARD VOICES TELLING ME TO KILL MYSELF THE NIGHT AFTER I HAD A COLONOSCOPY" amoxicillin (Verified Adverse Reaction, Intermediate, Pruritus , 03/06/18) adhesive tape (Verified Adverse Reaction, Mild, RASH, 03/06/18) fluticasone (Verified Adverse Reaction, Mild, THRUSH, 03/06/18) salmeterol (Verified Adverse Reaction, Mild, THRUSH, 03/06/18) Home Meds Active Scripts Furosemide (LASIX) 20 Mg Tablet, 1 TAB PO DAILY for edema, #30 TAB Prov:SKINNY EMMANUEL MD 03/18/18 Diltiazem Hcl (DILTIAZEM 24HR CD) 240 Mg Cap.er.24h, 240 MG PO QDAY, #30 CAP.SR.24H 0 Refills Prov:GARY RODRIGUEZ MD 03/03/18 Lactulose (LACTULOSE) 20 Gm/30 Ml Soln, 20 GM PO DAILY, #500 ML Prov:SKINNY EMMANUEL MD 01/15/18 Tiotropium [place] (SPIRIVA) 18 Mcg/Cap Inh, 2 PUFF INH DAILY, #1 INH 11 Refills Prov:SKINNY EMMANUEL MD 05/14/17 Nystatin (NYSTOP) 60 Gm Powder, 1 DONALD TP BID, #1 BOTTLE 0 Refills APPLY TO AFFECTED AREA TWICE A DAY Prov:SKINNY EMMANUEL MD 03/13/17 Reported Medications Oxygen (OXYGEN) Inha, 2 L INH QDAY, L 01/09/18 Budesonide/Formoterol Fumarate (SYMBICORT 80-4.5 MCG INHALER) 10.2 Gm Hfa.aer.ad, 10.2 GM IH BID 12/07/17 Bupropion Hcl (WELLBUTRIN SR) 150 Mg Tablet.er, 150 MG PO QDAY, TAB 11/11/17 Melatonin (MELATONIN) 2.5 Mg Tab.chew, 2.5 MG PO DAILY, TAB.CHEW 11/11/17 Escitalopram Oxalate (ESCITALOPRAM OXALATE) 20 Mg Tablet, 20 MG PO QDAY 11/11/17 Pramipexole Di-Hcl (MIRAPEX) 1 Mg Tablet, 1 MG PO DAILY 11/11/17 Famotidine (FAMOTIDINE) 20 Mg Tablet, 20 MG PO QDAY, TAB 11/11/17 Cholecalciferol (Vitamin D3) (VITAMIN D3) 1,000 Unit Tablet, 1000 UNIT PO QDAY, TAB 06/20/17 Ibuprofen (IBUPROFEN) 200 Mg Tablet, 2 TAB PO Q8H PRN for PAIN, TAB (MOTRIN): TAKE 400 MG EVERY 8 HRS NEEDED FOR PAIN. 02/03/17 Hydroxyzine Pamoate (HYDROXYZINE PAMOATE) 25 Mg Capsule, 25 TAB PO Q8H PRN for ANXIETY/INSOMNIA 01/27/17 Albuterol Sulfate 90 Mcg/Act (PROAIR HFA 90 MCG/ACT) 8.5 Gm Hfa.aer.ad, 2 PUFF IH Q4-6H PRN for DYSPNEA, INHALER 01/27/17 Multivitamin (MULTIVITAMINS) 1 Each Capsule, 1 EACH PO DAILY, CAPSULE 12/08/16 Discontinued Reported Medications Metoprolol Succinate (METOPROLOL SUCCINATE) 25 Mg Tab.er.24h, 1 TAB PO QDAY, TAB 03/03/18 Coleman-3/Dha/Epa/Fish Oil (OMEGA-3 FISH OIL 1,000 MG SFGL) 1,000 Mg Capsule, 1000 MG PO BID, CAPSULE 07/06/17 Discontinued Scripts Meclizine Hcl (MECLIZINE HCL) 25 Mg Tablet, 25 MG PO Q8H for dizziness, #20 TAB 0 Refills Prov:FRAN FU MD 02/26/18 Diltiazem Hcl (DILTIAZEM 24HR CD) 120 Mg Cap.er.24h, 120 MG PO QDAY for 30 Days, #30 CAP 1 Refill Prov:ARIELLE MCCOY MD 02/25/18 Doxycycline Hyclate (DOXYCYCLINE HYCLATE) 100 Mg Capsule, 100 MG PO BID, #6 CAPSULE Prov:[facility] 02/22/18 Docusate Sodium (COLACE) 100 Mg Capsule, 100 MG PO BID PRN for CONSTIPATION, #60 CAPSULE Prov:[facility] 02/22/18 Montelukast Sodium (SINGULAIR) 10 Mg Tablet, 10 MG PO QDAY, #30 TAB Prov:[facility] 02/22/18 Prednisone 10 Mg Tab (PREDNISONE 10 MG TAB) 10 Mg Tablet, 6 TAB PO QDAY, #63 TAB Take 6 tabs daily for 3 days, then decrease by 1 tab every 3 days until gone. Prov:[facility] 02/22/18 Esomeprazole Magnesium (NEXIUM) 40 Mg Capsule., 1 CAP PO QDAY, #30 CAP Prov:SKINNY EMMANUEL MD 02/01/18 Past Medical/Surgical History Past medical history for COPD he uses supplemental oxygen. History of sleep apnea, history of gastroesophageal reflux disease, history of prior psychiatric hospitalization for suicide attempts, history of hypothyroidism history of cholecystectomy. Hx Smoking: Yes Smoking Status: Current: Every Day Smoker, Light Tobacco Smoker Exposure to Second Hand Smoke?: Yes Hx Substance Use Disorder: No Hx Alcohol Use: No Constitutional Vital Sign - Last 24 Hours 03/20/18 03/20/18 03/20/18 03/20/18 13:25 13:26 13:26 13:56 Temp 99.0 Pulse 104 99 106 Resp 20 B/P (MAP) 133/86 (102) 133/86 Pulse Ox 92 93 90 O2 Delivery Nasal Cannula 03/20/18 03/20/18 03/20/18 14:00 14:19 15:00 Pulse 89 B/P (MAP) 131/72 (91) 122/81 (95) 133/84 (100) Pulse Ox 93 Physical Exam General Appearance: The patient is alert, has no immediate need for airway p rotection and no current signs of toxicity. Eyes: Pupils equal and round no injection. Respiratory: Chest is non tender, lungs are clear to auscultation. Cardiac: regular rate and rhythm Gastrointestinal: Abdomen is soft and non tender, no masses, bowel sounds normal. Musculoskeletal: Neck: Neck is supple and non tender. Extremities have full range of motion and are non tender. Mild bilateral lower extremity edema Skin: No rashes or lesions. [ ] Medical Decision Making Data Points Result Diagram: 03/20/18 1359 03/20/18 1359 Laboratory Hematology Test 03/20/18 13:59 Red Blood Count 4.43 M/uL (4.17-5.56) Mean Corpuscular Volume 91.2 fL (80.0-96.0) Mean Corpuscular Hemoglobin 31.5 pg (26.0-33.0) Mean Corpuscular Hemoglobin Concent 34.5 g/dL (32.0-36.0) Red Cell Distribution Width 13.2 % (11.5-14.5) Mean Platelet Volume 8.3 fL (7.2-11.1) Neutrophils (%) (Auto) 59.7 % (39.4-72.5) Lymphocytes (%) (Auto) 22.3 % (17.6-49.6) Monocytes (%) (Auto) 15.7 % (4.1-12.4) Eosinophils (%) (Auto) 1.5 % (0.4-6.7) Basophils (%) (Auto) 0.8 % (0.3-1.4) Nucleated RBC Relative Count (auto) 0.1 /100WBC Neutrophils # (Auto) 2.4 K/uL (2.0-7.4) Lymphocytes # (Auto) 0.9 K/uL (1.3-3.6) Monocytes # (Auto) 0.6 K/uL (0.3-1.0) Eosinophils # (Auto) 0.1 K/uL (0.0-0.5) Basophils # (Auto) 0.0 K/uL (0.0-0.1) Nucleated RBC Absolute Count (auto) 0.00 K/uL Sodium Level 138 mmol/L (137-145) Potassium Level 3.9 mmol/L (3.5-5.0) Chloride Level 99 mmol/L (98-107) Carbon Dioxide Level 29 mmol/L (22-31) Blood Urea Nitrogen 12 mg/dl (7-18) Creatinine 1.20 mg/dl (0.52-1.04) Glomerular Filtration Rate Calc 46.8 Random Glucose 119 mg/dl (75-110) Calcium Level 9.9 mg/dl (8.4-10.2) Total Bilirubin 0.2 mg/dl (0.2-1.3) Aspartate Amino Transf (AST/SGOT) 15 U/L (0-35) Alanine Aminotransferase (ALT/SGPT) 19 U/L (0-56) Alkaline Phosphatase 87 U/L (0-126) Troponin I < 0.012 ng/ml B-Type Natriuretic Peptide 16 pg/ml (0-100) Total Protein 7.3 g/dl (6.3-8.2) Albumin 4.0 g/dl (3.5-5.0) Chemistry Test 03/20/18 13:59 White Blood Count 4.0 k/uL (4.5-11.0) Red Blood Count 4.43 M/uL (4.17-5.56) Hemoglobin 14.0 g/dL (12.0-16.0) Hematocrit 40.4 % (34.0-47.0) Mean Corpuscular Volume 91.2 fL (80.0-96.0) Mean Corpuscular Hemoglobin 31.5 pg (26.0-33.0) Mean Corpuscular Hemoglobin Concent 34.5 g/dL (32.0-36.0) Red Cell Distribution Width 13.2 % (11.5-14.5) Platelet Count 283 K/uL (150-450) Mean Platelet Volume 8.3 fL (7.2-11.1) Neutrophils (%) (Auto) 59.7 % (39.4-72.5) Lymphocytes (%) (Auto) 22.3 % (17.6-49.6) Monocytes (%) (Auto) 15.7 % (4.1-12.4) Eosinophils (%) (Auto) 1.5 % (0.4-6.7) Basophils (%) (Auto) 0.8 % (0.3-1.4) Nucleated RBC Relative Count (auto) 0.1 /100WBC Neutrophils # (Auto) 2.4 K/uL (2.0-7.4) Lymphocytes # (Auto) 0.9 K/uL (1.3-3.6) Monocytes # (Auto) 0.6 K/uL (0.3-1.0) Eosinophils # (Auto) 0.1 K/uL (0.0-0.5) Basophils # (Auto) 0.0 K/uL (0.0-0.1) Nucleated RBC Absolute Count (auto) 0.00 K/uL Glomerular Filtration Rate Calc 46.8 Calcium Level 9.9 mg/dl (8.4-10.2) Total Bilirubin 0.2 mg/dl (0.2-1.3) Aspartate Amino Transf (AST/SGOT) 15 U/L (0-35) Alanine Aminotransferase (ALT/SGPT) 19 U/L (0-56) Alkaline Phosphatase 87 U/L (0-126) Troponin I < 0.012 ng/ml B-Type Natriuretic Peptide 16 pg/ml (0-100) Total Protein 7.3 g/dl (6.3-8.2) Albumin 4.0 g/dl (3.5-5.0) ED Course/Re-evaluation ED Course 03/20/2018 3:03:15 pm plan at this time will be to increase Lasix to 20 mg twice per day and follow-up with her primary care provider Decision to Disposition Date: Mar 20, 2018 Decision to Disposition Time: 15:03 Depart Departure Latest Vital Signs Vital Signs Date Time Temp Pulse Resp B/P (MAP) Pulse Ox O2 Delivery O2 Flow Rate FiO2 03/20/18 15:00 89 133/84 (100) 93 03/20/18 13:26 99.0 20 Nasal Cannula Core Temperature (Celsius): 37.23 Impression: Primary Impression: Peripheral edema Condition: Improved Disposition: HOME OR SELF-CARE Referrals: SKINNY EMMANUEL MD (PCP) Patient Instructions: Leg Edema (ED) Additional Instructions: Increase her Lasix to 20 mg twice per day, once in the morning, once in the evening. Call and follow-up appointment with her primary care provider. FRAN FU MD Mar 20, 2018 13:10
[2018-03-20] MEDS ORDERED: ALBUTEROL/IPRATROPIUM 3 ML NEB NEB ONE (13:40)
[2018-03-20] MEDS ORDERED: FUROSEMIDE 20 MG/2 ML VIAL IVP ONE (13:40)
--- NOTE | 2018-03-20 14:02 | EKG ---
FACILITY: [facility] PATIENT NAME: FLORENCIO CRUZ : [id number] MR: [id number] V: [id number] EXAM DATE: ORDERING PHYSICIAN: FRAN FU TECHNOLOGIST: ROSS Erickson Reason : Blood Pressure : / mmHG Vent. Rate : 087 BPM Atrial Rate : 087 BPM P-R Int : 140 ms QRS Dur : 076 ms QT Int : 370 ms P-R-T Axes : 054 027 071 degrees QTc Int : 445 ms Normal sinus rhythm Normal ECG When compared with ECG of 04.02.2018 No significant change was found Confirmed by Lele Cox ([id number]) on 03/20/2018 2:34:02 PM Referred By: TANK Confirmed By:Lele Myers
[2018-03-20 14:07] LABS: PLATELET COUNT, AUTOMATED 283 K/uL (150-450)
--- NOTE | 2018-03-20 14:51 | RADIOLOGY IMAGING REPORT ---
[place] [facility] [place] NAME: Natividad Loaiza : 1965 MR: [id number] V: [id number] EXAM DATE: ORDERING PHYSICIAN: FRAN FU TECHNOLOGIST: Location: [facility] - [place] Patient: Natividad Loaiza : 1965 Visit/Account:[id number] Date of Sevice: 03/20/2018 2 VIEWS CHEST INDICATION: Chest pain. COMPARISON: 03/06/2018 FINDINGS: The lungs are clear. No effusion or pneumothorax is seen. Heart size and mediastinal contours are nor mal. IMPRESSION: 1. No radiographic evidence of active disease. Report Dictated By: Gunner Cardona at 03/20/2018 2:46 PM Report E-Signed By: Gunner Cardona at 03/20/2018 2:47 PM WSN:[id number]
[2018-03-20 15:00] VITALS: BP 133/84
== END 2018-03-20 15:22 | disposition home or self-care (01) ==
LOC: ER 13:00
DX: R60.0 Localized edema (principal); J44.9 Chronic obstructive pulmonary disease, unspecified; Z99.81 Dependence on supplemental oxygen
CPT/HCPCS: 71046; 83880; 84484; 85025; 93005; 94640; 96374; 99284; J1940; J7620; 82040; 82247; 82310; 82374; 82435; 82565; 82947; 84075; 84132; 84155; 84295; 84450; 84460; 84520

== ENCOUNTER 2018-03-22 06:06 | Emergency (ER) | payer MEDICARE ==
[2018-02-24 07:39] VITALS: Wt 127.0 kg
--- NOTE | 2018-03-22 06:09 | ER Report ---
History and Physical Time Seen By MD: 06:09 (DENIA PUGA DO) HPI/ROS CHIEF COMPLAINT: Right hip pain 2 weeks HISTORY OF PRESENT ILLNESS: 52-year-old female presents ambulatory to the ER complaining of severe right hip pain. She was unable to sleep last night but one hour. She points to the iliac crest of the right hip. No aggravation with movement. But she states her right knee has been bothering her and altering her gait. Patient denies any traumatic injuries. She notes no pain over the lateral aspect of the bursa is. He notes no dysuria or hematuria. Patient's on water pills for lower extremity edema. She states she's not been making very much urine. (DENIA PUGA DO) Allergies: Coded Allergies: aripiprazole (Verified Allergy, Intermediate, RASH, 03/22/18) lithium (Verified Allergy, Intermediate, RASH, 03/22/18) lurasidone (Verified Allergy, Intermediate, 03/22/18) quetiapine (Verified Allergy, Intermediate, DIZZY, 03/22/18) DIzzy varenicline (Verified Allergy, Intermediate, SWELLING, 03/22/18) ciprofloxacin (Verified Allergy, Mild, N/V, 03/22/18) sulfamethoxazole (Verified Allergy, Mild, HIVES, 03/22/18) topiramate (Verified Allergy, Mild, UPSET STOMACH, 03/22/18) Upset stomach trimethoprim (Verified Allergy, Mild, HIVES, 03/22/18) metoprolol (Unverified Allergy, Unknown, 03/22/18) dyspnea haloperidol (Verified Adverse Reaction, Severe, DYSTONIC REACTION, 03/22/18) propofol (Verified Adverse Reaction, Severe, HALLUCINATIONS, 03/22/18) PT STATES "I HEARD VOICES TELLING ME TO KILL MYSELF THE NIGHT AFTER I HAD A COLONOSCOPY" amoxicillin (Verified Adverse Reaction, Intermediate, Pruritus , 03/22/18) adhesive tape (Verified Adverse Reaction, Mild, RASH, 03/22/18) fluticasone (Verified Adverse Reaction, Mild, THRUSH, 03/22/18) salmeterol (Verified Adverse Reaction, Mild, THRUSH, 03/22/18) Home Meds Active Scripts Diltiazem Hcl (DILTIAZEM 24HR CD) 240 Mg Cap.er.24h, 240 MG PO QDAY, #30 CAP.SR.24H 0 Refills Prov:GARY RODRIGUEZ MD 03/03/18 Lactulose (LACTULOSE) 20 Gm/30 Ml Soln, 20 GM PO DAILY, #500 ML Prov:SKINNY EMMANUEL MD 01/15/18 Tiotropium [place] (SPIRIVA) 18 Mcg/Cap Inh, 2 PUFF INH DAILY, #1 INH 11 Refills Prov:SKINNY EMMANUEL MD 05/14/17 Nystatin (NYSTOP) 60 Gm Powder, 1 DONALD TP BID, #1 BOTTLE 0 Refills APPLY TO AFFECTED AREA TWICE A DAY Prov:SKINNY EMMANUEL MD 03/13/17 Reported Medications Furosemide (FUROSEMIDE) 40 Mg Tablet, 1 TAB PO BID, TAB 03/22/18 Oxygen (OXYGEN) Inha, 2 L INH QDAY, L 01/09/18 Budesonide/Formoterol Fumarate (SYMBICORT 80-4.5 MCG INHALER) 10.2 Gm Hfa.aer.ad, 10.2 GM IH BID 12/07/17 Bupropion Hcl (WELLBUTRIN SR) 150 Mg Tablet.er, 150 MG PO QDAY, TAB 11/11/17 Melatonin (MELATONIN) 2.5 Mg Tab.chew, 2.5 MG PO DAILY, TAB.CHEW 11/11/17 Escitalopram Oxalate (ESCITALOPRAM OXALATE) 20 Mg Tablet, 20 MG PO QDAY 11/11/17 Pramipexole Di-Hcl (MIRAPEX) 1 Mg Tablet, 1 MG PO DAILY 11/11/17 Famotidine (FAMOTIDINE) 20 Mg Tablet, 20 MG PO QDAY, TAB 11/11/17 Cholecalciferol (Vitamin D3) (VITAMIN D3) 1,000 Unit Tablet, 1000 UNIT PO QDAY, TAB 06/20/17 Ibuprofen (IBUPROFEN) 200 Mg Tablet, 2 TAB PO Q8H PRN for PAIN, TAB (MOTRIN): TAKE 400 MG EVERY 8 HRS NEEDED FOR PAIN. 02/03/17 Hydroxyzine Pamoate (HYDROXYZINE PAMOATE) 25 Mg Capsule, 25 TAB PO Q8H PRN for ANXIETY/INSOMNIA 01/27/17 Albuterol Sulfate 90 Mcg/Act (PROAIR HFA 90 MCG/ACT) 8.5 Gm Hfa.aer.ad, 2 PUFF IH Q4-6H PRN for DYSPNEA, INHALER 01/27/17 Multivitamin (MULTIVITAMINS) 1 Each Capsule, 1 EACH PO DAILY, CAPSULE 12/08/16 Discontinued Reported Medications Metoprolol Succinate (METOPROLOL SUCCINATE) 25 Mg Tab.er.24h, 1 TAB PO QDAY, TAB 03/03/18 [place]-3/Dha/Epa/Fish Oil (OMEGA-3 FISH OIL 1,000 MG SFGL) 1,000 Mg Capsule, 1000 MG PO BID, CAPSULE 07/06/17 Discontinued Scripts Furosemide (LASIX) 20 Mg Tablet, 1 TAB PO DAILY for edema, #30 TAB Prov:SKINNY EMMANUEL MD 03/18/18 Meclizine Hcl (MECLIZINE HCL) 25 Mg Tablet, 25 MG PO Q8H for dizziness, #20 TAB 0 Refills Prov:FRAN FU MD 02/26/18 Diltiazem Hcl (DILTIAZEM 24HR CD) 120 Mg Cap.er.24h, 120 MG PO QDAY for 30 Days, #30 CAP 1 Refill Prov:ARIELLE MCCOY MD 02/25/18 Doxycycline Hyclate (DOXYCYCLINE HYCLATE) 100 Mg Capsule, 100 MG PO BID, #6 CAPSULE Prov:[facility] 02/22/18 Docusate Sodium (COLACE) 100 Mg Capsule, 100 MG PO BID PRN for CONSTIPATION, #60 CAPSULE Prov:[facility] 02/22/18 Montelukast Sodium (SINGULAIR) 10 Mg Tablet, 10 MG PO QDAY, #30 TAB Prov:[facility] 02/22/18 Prednisone 10 Mg Tab (PREDNISONE 10 MG TAB) 10 Mg Tablet, 6 TAB PO QDAY, #63 TAB Take 6 tabs daily for 3 days, then decrease by 1 tab every 3 days until gone. 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) sleep apnea (Uses BIPAP, since 04/2015) other respiratory history (Chronic repiratory failure with hypoxia) Gastrointestinal: Reports hx of: GERD Psychiatric: Reports hx of: depression psych hospitalization suicide attempt(s) (4 attempts, last attempt 01/26/17) other psychiatric history (somatic symptom disorder) Endocrine: Reports hx of: hypothyroidism Past Surgical History HEENT: Reports hx of: tonsillectomy (06/19) Gastrointestinal: Reports hx of: cholecystectomy (12/18/2015) (DENIA PUGA DO) Reviewed Nurses Notes: Yes Old Medical Records Reviewed: Yes (DENIA PUGA DO) Hx Smoking: Yes Smoking Status: Current: Every Day Smoker, Light Tobacco Smoker Exposure to Second Hand Smoke?: Yes Hx Substance Use Disorder: No Hx Alcohol Use: No (DENIA PUGA DO) Constitutional Vital Sign - Last 24 Hours 03/22/18 06:11 Temp 98.3 Pulse 91 Resp 20 B/P (MAP) 116/70 Pulse Ox 78 O2 Delivery Room Air (TAMAR VALADEZ MD) Physical Exam General appearance: Moderate distress Respiratory: Chest is non tender, lungs are decreased, Audible wheezing Cardiac: Regular rate and rhythm Back: There is no tenderness on palpation of the midline. There is no tenderness on palpation of the right SI joint. Patient points more laterally. There is no rash noted., There is no tenderness over the right sciatic nerve compression. There is no tenderness on palpation of the right bursa sac. There is no change or minimal change in the pain with right hip movement. DIFFERENTIAL DIAGNOSIS: After history and physical exam differential diagnosis was considered for (DENIA PUGA DO) Medical Decision Making Data Points Laboratory Hematology Test 03/22/18 07:05 Urine Color Yellow Urine Clarity Slightly-cloudy Urine pH 5.0 pH (4.8-9.5) Urine Specific Douglas 1.024 Urine Protein Negative mg/dL (NEGATIVE) Urine Glucose (UA) Negative mg/dL (NEGATIVE) Urine Ketones Negative mg/dL (NEGATIVE) Urine Blood Negative (NEGATIVE) Urine Nitrite Negative (NEGATIVE) Urine Bilirubin Negative (NEGATIVE) Urine Urobilinogen 2.0 mg/dL (0.2-1.9) Urine Leukocyte Esterase Negative (NEGATIVE) Urine RBC <1 /HPF (0-2/HPF) Urine WBC <1 /HPF (0-5/HPF) Urine Squamous Epithelial Cells Many /LPF (</=FEW) Urine Transitional Epithelial Cells Few /LPF (NONE-FEW) Urine Bacteria Negative /HPF (NONE-FEW) Urine Mucus Few /HPF (NONE-FEW) Chemistry Test 03/22/18 07:05 Urine Color Yellow Urine Clarity Slightly-cloudy Urine pH 5.0 pH (4.8-9.5) Urine Specific Douglas 1.024 Urine Protein Negative mg/dL (NEGATIVE) Urine Glucose (UA) Negative mg/dL (NEGATIVE) Urine Ketones Negative mg/dL (NEGATIVE) Urine Blood Negative (NEGATIVE) Urine Nitrite Negative (NEGATIVE) Urine Bilirubin Negative (NEGATIVE) Urine Urobilinogen 2.0 mg/dL (0.2-1.9) Urine Leukocyte Esterase Negative (NEGATIVE) Urine RBC <1 /HPF (0-2/HPF) Urine WBC <1 /HPF (0-5/HPF) Urine Squamous Epithelial Cells Many /LPF (</=FEW) Urine Transitional Epithelial Cells Few /LPF (NONE-FEW) Urine Bacteria Negative /HPF (NONE-FEW) Urine Mucus Few /HPF (NONE-FEW) Urinalysis Test 03/22/18 07:05 Urine Color Yellow Urine Clarity Slightly-cloudy Urine pH 5.0 pH (4.8-9.5) Urine Specific Douglas 1.024 Urine Protein Negative mg/dL (NEGATIVE) Urine Glucose (UA) Negative mg/dL (NEGATIVE) Urine Ketones Negative mg/dL (NEGATIVE) Urine Blood Negative (NEGATIVE) Urine Nitrite Negative (NEGATIVE) Urine Bilirubin Negative (NEGATIVE) Urine Urobilinogen 2.0 mg/dL (0.2-1.9) Urine Leukocyte Esterase Negative (NEGATIVE) Urine RBC <1 /HPF (0-2/HPF) Urine WBC <1 /HPF (0-5/HPF) Urine Squamous Epithelial Cells Many /LPF (</=FEW) Urine Transitional Epithelial Cells Few /LPF (NONE-FEW) Urine Bacteria Negative /HPF (NONE-FEW) Urine Mucus Few /HPF (NONE-FEW) (TAMAR VALADEZ MD) EKG/Imaging Imaging X-ray: Right hip 2 views was obtained. I viewed the images myself on the PACS system. My interpretation of the images is: No fracture no dislocation or malalignment. The radiologist interpretation had no clinically significant variation from this interpretation. (DENIA PUGA DO) ED Course/Re-evaluation Turned Over Care turned over to Dr. Tamar Valadez at shift change (DENIA PUGA DO) ED Course X-ray and urinalysis are both negative. I reexamined the patient myself. Her pain is improved and she is able to ambulate. She was able to drive herself to the emergency department and ambulate from her house into the car and subsequently into the emergency department. She denies any recent trauma. Fever chills. No abdominal pain or dysuria. She has had this pain intermittently for many weeks. She states that she came to the emergency department early this morning, because the pain was keeping her from sleeping. I do not think she needs any further imaging or testing at this time. She will follow-up with her primary care physician. Decision to Disposition Date: Mar 22, 2018 Decision to Disposition Time: 07:57 (TAMAR VALADEZ MD) Depart Departure Latest Vital Signs Vital Signs Date Time Temp Pulse Resp B/P (MAP) Pulse Ox O2 Delivery O2 Flow Rate FiO2 03/22/18 06:11 98.3 91 20 116/70 78 Room Air (TAMAR VALADEZ MD) Core Temperature (Celsius): 37.23 (DENIA PUGA DO) Impression: Primary Impression: Hip pain Condition: Improved Disposition: HOME OR SELF-CARE Referrals: SKINNY EMMANUEL MD (PCP) Patient Instructions: Hip Pain (ED) Problem Qualifiers Primary Impression: Hip pain Laterality: right Qualified Codes: M25.551 - Pain in right hip DENIA PUGA DO Mar 22, 2018 06:09 TAMAR VALADEZ MD Mar 22, 2018 08:00
[2018-03-22] MEDS ORDERED: FURO-47 PO (06:13)
[2018-03-22] MEDS ORDERED: APAP/HYDROCODONE 325/5 TAB PO ONE (06:20)
--- NOTE | 2018-03-22 06:56 | RADIOLOGY IMAGING REPORT ---
FACILITY: [facility] - [place] PATIENT NAME: Natividad Loaiza : 1965 MR: [id number] V: [id number] EXAM DATE: [id number] ORDERING PHYSICIAN: DENIA PUGA TECHNOLOGIST: Location: [facility] Patient: Natividad Loaiza : 1965 Visit/Account:[id number] Date of Sevice: 03/22/2018 Exam type: 2 views right hip History: R hip pain for 1 week Comparison: None. Findings: There is no acute fracture of the pelvis or hips. Mild degenerative changes are noted. Soft tissues a re unremarkable. IMPRESSION: 1. No acute fracture or dislocation of the pelvis or hips. Report Dictated By: Gilberto Post MD at 03/22/2018 6:48 AM Report E-Signed By: Gilberto Post MD at 03/22/2018 6:53 AM WSN:[id number]
[2018-03-22 07:37] VITALS: BP 112/66
[2018-03-23] MEDS ORDERED: ONDA4TAB9 PO (12:06)
== END 2018-03-22 08:06 | disposition home or self-care (01) ==
LOC: ER 06:20
DX: M25.551 Pain in right hip (principal)
CPT/HCPCS: 73502; 81001; 99283; A9270

== ENCOUNTER 2018-03-23 08:53 | Emergency (ER) | payer MEDICARE ==
[2018-02-24 07:39] VITALS: Wt 127.0 kg
[~2018-03-23 08:53] MED LIST changes: +FURO-47 PO
--- NOTE | 2018-03-23 09:29 | ER Report ---
History and Physical Time Seen By MD: 09:00 Hx. of Stated Complaint: Pt. been nauseous. Dry heaving with any PO intake. Mid back pain 11/13 also reported. HPI/ROS 52-year-old female seen in the emergency department for another complaint within the past 24 hours. For this visit she presents with nausea and one episode of vomiting. She denies abdominal pain or fever chills. No dysuria or hematuria. No chest pain or shortness of breath. Not tried to take by mouth since the episode of vomiting. Remainder of the 14 system rev: Yes Allergies: Coded Allergies: aripiprazole (Verified Allergy, Intermediate, RASH, 03/24/18) lithium (Verified Allergy, Intermediate, RASH, 03/24/18) lurasidone (Verified Allergy, Intermediate, 03/24/18) quetiapine (Verified Allergy, Intermediate, DIZZY, 03/24/18) DIzzy varenicline (Verified Allergy, Intermediate, SWELLING, 03/24/18) ciprofloxacin (Verified Allergy, Mild, N/V, 03/24/18) sulfamethoxazole (Verified Allergy, Mild, HIVES, 03/24/18) topiramate (Verified Allergy, Mild, UPSET STOMACH, 03/24/18) Upset stomach trimethoprim (Verified Allergy, Mild, HIVES, 03/24/18) metoprolol (Unverified Allergy, Unknown, 03/24/18) dyspnea haloperidol (Verified Adverse Reaction, Severe, DYSTONIC REACTION, 03/24/18) propofol (Verified Adverse Reaction, Severe, HALLUCINATIONS, 03/24/18) PT STATES "I HEARD VOICES TELLING ME TO KILL MYSELF THE NIGHT AFTER I HAD A COLONOSCOPY" amoxicillin (Verified Adverse Reaction, Intermediate, Pruritus , 03/24/18) adhesive tape (Verified Adverse Reaction, Mild, RASH, 03/24/18) fluticasone (Verified Adverse Reaction, Mild, THRUSH, 03/24/18) salmeterol (Verified Adverse Reaction, Mild, THRUSH, 03/24/18) Home Meds Active Scripts Azithromycin (ZITHROMAX) 250 Mg Tablet, 1 TAB PO DIRECTED, #14 TAB Take three times a week on , Wednesdays and Fridays. Prov:SKINNY EMMANUEL MD 03/31/18 Prednisone (PREDNISONE) 20 Mg Tablet, 60 MG PO QDAY, #30 TAB 0 Refills Prov:GARY RODRIGUEZ MD 03/24/18 Ondansetron 4 Mg Odt (ONDANSETRON 4 MG ODT) 4 Mg Tab.rapdis, 4 MG PO ONCE for 5 Days, TAB Prov:YUDI VALADEZ MD 03/23/18 Diltiazem Hcl (DILTIAZEM 24HR CD) 240 Mg Cap.er.24h, 240 MG PO QDAY, #30 CAP.SR.24H 0 Refills Prov:GARY RODRIGUEZ MD 03/03/18 Lactulose (LACTULOSE) 20 Gm/30 Ml Soln, 20 GM PO DAILY, #500 ML Prov:SKINNY EMMANUEL MD 01/15/18 Tiotropium [place] (SPIRIVA) 18 Mcg/Cap Inh, 2 PUFF INH DAILY, #1 INH 11 Refills Prov:SKINNY EMMANUEL MD 05/14/17 Nystatin (NYSTOP) 60 Gm Powder, 1 DONALD TP BID, #1 BOTTLE 0 Refills APPLY TO AFFECTED AREA TWICE A DAY Prov:SKINNY EMMANUEL MD 03/13/17 Reported Medications Oxygen (OXYGEN) Inha, 2 L INH QDAY, L 01/09/18 Budesonide/Formoterol Fumarate (SYMBICORT 80-4.5 MCG INHALER) 10.2 Gm Hfa.aer.ad, 10.2 GM IH BID 12/07/17 Bupropion Hcl (WELLBUTRIN SR) 150 Mg Tablet.er, 150 MG PO QDAY, TAB 11/11/17 Melatonin (MELATONIN) 2.5 Mg Tab.chew, 2.5 MG PO DAILY, TAB.CHEW 11/11/17 Escitalopram Oxalate (ESCITALOPRAM OXALATE) 20 Mg Tablet, 20 MG PO QDAY 11/11/17 Pramipexole Di-Hcl (MIRAPEX) 1 Mg Tablet, 1 MG PO DAILY 11/11/17 Famotidine (FAMOTIDINE) 20 Mg Tablet, 20 MG PO QDAY, TAB 11/11/17 Cholecalciferol (Vitamin D3) (VITAMIN D3) 1,000 Unit Tablet, 1000 UNIT PO QDAY, TAB 06/20/17 Ibuprofen (IBUPROFEN) 200 Mg Tablet, 2 TAB PO Q8H PRN for PAIN, TAB (MOTRIN): TAKE 400 MG EVERY 8 HRS NEEDED FOR PAIN. 10/31/17 Hydroxyzine Pamoate (HYDROXYZINE PAMOATE) 25 Mg Capsule, 25 TAB PO Q8H PRN for ANXIETY/INSOMNIA 01/27/17 Albuterol Sulfate 90 Mcg/Act (PROAIR HFA 90 MCG/ACT) 8.5 Gm Hfa.aer.ad, 2 PUFF IH Q4-6H PRN for DYSPNEA, INHALER 01/27/17 Multivitamin (MULTIVITAMINS) 1 Each Capsule, 1 EACH PO DAILY, CAPSULE 12/08/16 Discontinued Reported Medications Furosemide (FUROSEMIDE) 40 Mg Tablet, 1 TAB PO BID, TAB 03/22/18 Reviewed Nurses Notes: Yes Old Medical Records Reviewed: Yes Hx Smoking: Yes Smoking Status: Current: Every Day Smoker, Light Tobacco Smoker Exposure to Second Hand Smoke?: Yes Hx Substance Use Disorder: No Hx Alcohol Use: No Constitutional Physical Exam General Appearance: The patient is alert, has no immediate need for airway protection and no current signs of toxicity. Eyes: Pupils equal and round no injection. Respiratory: Chest is non tender, lungs are clear to auscultation. Cardiac: regular rate and rhythm Gastrointestinal: Abdomen is soft and non tender, no masses, bowel sounds normal. Skin: No rashes or lesions. DIFFERENTIAL DIAGNOSIS: After history and physical exam differential diagnosis was considered for nausea and vomiting including but not limited to ap pendicitis, cholecystitis, gastritis and urinary tract infection. Medical Decision Making ED Course/Re-evaluation ED Course Benign abdominal exam. No pain or tenderness to palpation. Given IV fluids and antinausea medicine and now taking by mouth. Feels improved and asking to go home. Discharged with Zofran. Decision to Disposition Date: Mar 23, 2018 Decision to Disposition Time: 12:15 Depart Departure Latest Vital Signs Core Temperature (Celsius): 37.23 Impression: Primary Impression: Shortness of breath Additional Impression: Nausea alone Condition: Improved Disposition: HOME OR SELF-CARE Referrals: SKINNY EMMANUEL MD (PCP) New Scripts Ondansetron 4 Mg Odt (ONDANSETRON 4 MG ODT) 4 Mg Tab.rapdis 4 MG PO ONCE for 5 Days, TAB Prov: YUDI VALADEZ MD 03/23/18 Patient Instructions: Acute Nausea and Vomiting (ED) Problem Qualifiers YUDI VALADEZ MD Mar 23, 2018 09:29
[2018-03-23] MEDS ORDERED: DEXAMETHASONE 4 MG TAB PO ONE (09:40)
[2018-03-23] MEDS ORDERED: ALBUTEROL/IPRATROPIUM 3 ML NEB NEB ONE (09:40)
[2018-03-23] MEDS ORDERED: ONDANSETRON 4 MG ODT TABDP SL ONE (09:40)
--- NOTE | 2018-03-23 10:29 | RADIOLOGY IMAGING REPORT ---
FACILITY: [facility] - [place] PATIENT NAME: Natividad Loaiza : 1965 MR: [id number] V: [id number] EXAM DATE: [id number] ORDERING PHYSICIAN: YUDI VALADEZ TECHNOLOGIST: Location: [facility] [place] Patient: Natividad Loaiza : 1965 Visit/Account:[id number] Date of Sevice: 03/23/2018 Exam type: CHEST PA AND LAT History: URI/COPD Comparison: March 20, 2018. Findings: The lungs are free of acute effusions, infiltrates or edema. The cardiac silhouette is normal. The trachea is in midline. There are degenerative changes of the thoracic spine. IMPRESSION: 1. No acute cardiopulmonary process is seen Report Dictated By: Cris Verma MD at 03/23/2018 10:23 AM Report E-Signed By: Cris Verma MD at 03/23/2018 10:24 AM WSN:[id number]
[2018-03-23] MEDS ORDERED: ONDA4TAB9 PO (12:06)
[2018-03-23 12:18] VITALS: BP 143/86
[2018-03-24] MEDS ORDERED: PRED20TA6 PO (06:31)
[2018-03-31] MEDS ORDERED: AZIT-1 PO (10:16)
[2018-04-07] MEDS ORDERED: DILT240C4 PO (16:12)
== END 2018-03-23 12:24 | disposition home or self-care (01) ==
LOC: ER 09:32
DX: R06.02 Shortness of breath (principal); R11.0 Nausea
CPT/HCPCS: 71046; 94640; 99283; J7620; J8540; Q0162; S0119

== ENCOUNTER 2018-03-24 03:04 | Emergency (ER) | payer MEDICARE ==
[2018-02-24 07:39] VITALS: Wt 127.0 kg
[~2018-03-24 03:04] MED LIST changes: +ONDA4TAB9 PO
--- NOTE | 2018-03-24 03:36 | ER Report ---
History and Physical Time Seen By MD: 03:36 HPI/ROS CHIEF COMPLAINT: short of breath, headache HISTORY OF PRESENT ILLNESS: This is a 52 year old female. She was seen hear yesterday for same problems, shortness of breath. Was given Decadron, breathing treatments. Negative chest x-ray. She says she has been doing breathing treat ments at home, not helping anymore. Up to 4 liters on her oxygen by nasal canula. Has a mild headache rated 4 on a 1-10 scale. Allergies: Coded Allergies: aripiprazole (Verified Allergy, Intermediate, RASH, 03/24/18) lithium (Verified Allergy, Intermediate, RASH, 03/24/18) lurasidone (Verified Allergy, Intermediate, 03/24/18) quetiapine (Verified Allergy, Intermediate, DIZZY, 03/24/18) DIzzy varenicline (Verified Allergy, Intermediate, SWELLING, 03/24/18) ciprofloxacin (Verified Allergy, Mild, N/V, 03/24/18) sulfamethoxazole (Verified Allergy, Mild, HIVES, 03/24/18) topiramate (Verified Allergy, Mild, UPSET STOMACH, 03/24/18) Upset stomach trimethoprim (Verified Allergy, Mild, HIVES, 03/24/18) metoprolol (Unverified Allergy, Unknown, 03/24/18) dyspnea haloperidol (Verified Adverse Reaction, Severe, DYSTONIC REACTION, 03/24/18) propofol (Verified Adverse Reaction, Severe, HALLUCINATIONS, 03/24/18) PT STATES "I HEARD VOICES TELLING ME TO KILL MYSELF THE NIGHT AFTER I HAD A COLONOSCOPY" amoxicillin (Verified Adverse Reaction, Intermediate, Pruritus , 03/24/18) adhesive tape (Verified Adverse Reaction, Mild, RASH, 03/24/18) fluticasone (Verified Adverse Reaction, Mild, THRUSH, 03/24/18) salmeterol (Verified Adverse Reaction, Mild, THRUSH, 03/24/18) Home Meds Active Scripts Prednisone (PREDNISONE) 20 Mg Tablet, 60 MG PO QDAY, #30 TAB 0 Refills Prov:GARY RODRIGUEZ MD 03/24/18 Ondansetron 4 Mg Odt (ONDANSETRON 4 MG ODT) 4 Mg Tab.rapdis, 4 MG PO ONCE for 5 Days, TAB Prov:YUDI VALADEZ MD 03/23/18 Diltiazem Hcl (DILTIAZEM 24HR CD) 240 Mg Cap.er.24h, 240 MG PO QDAY, #30 C AP.SR.24H 0 Refills Prov:GARY RODRIGUEZ MD 03/03/18 Lactulose (LACTULOSE) 20 Gm/30 Ml Soln, 20 GM PO DAILY, #500 ML Prov:SKINNY EMMANUEL MD 01/15/18 Tiotropium [place] (SPIRIVA) 18 Mcg/Cap Inh, 2 PUFF INH DAILY, #1 INH 11 Refills Prov:SKINNY EMMANUEL MD 05/14/17 Nystatin (NYSTOP) 60 Gm Powder, 1 DONALD TP BID, #1 BOTTLE 0 Refills APPLY TO AFFECTED AREA TWICE A DAY Prov:SKINNY EMMANUEL MD 03/13/17 Reported Medications Furosemide (FUROSEMIDE) 40 Mg Tablet, 1 TAB PO BID, TAB 03/22/18 Oxygen (OXYGEN) Inha, 2 L INH QDAY, L 01/09/18 Budesonide/Formoterol Fumarate (SYMBICORT 80-4.5 MCG INHALER) 10.2 Gm Hfa.aer.ad, 10.2 GM IH BID 12/07/17 Bupropion Hcl (WELLBUTRIN SR) 150 Mg Tablet.er, 150 MG PO QDAY, TAB 11/11/17 Melatonin (MELATONIN) 2.5 Mg Tab.chew, 2.5 MG PO DAILY, TAB.CHEW 11/11/17 Escitalopram Oxalate (ESCITALOPRAM OXALATE) 20 Mg Tablet, 20 MG PO QDAY 11/11/17 Pramipexole Di-Hcl (MIRAPEX) 1 Mg Tablet, 1 MG PO DAILY 11/11/17 Famotidine (FAMOTIDINE) 20 Mg Tablet, 20 MG PO QDAY, TAB 11/11/17 Cholecalciferol (Vitamin D3) (VITAMIN D3) 1,000 Unit Tablet, 1000 UNIT PO QDAY, TAB 06/20/17 Ibuprofen (IBUPROFEN) 200 Mg Tablet, 2 TAB PO Q8H PRN for PAIN, TAB (MOTRIN): TAKE 400 MG EVERY 8 HRS NEEDED FOR PAIN. 02/03/17 Hydroxyzine Pamoate (HYDROXYZINE PAMOATE) 25 Mg Capsule, 25 TAB PO Q8H PRN for ANXIETY/INSOMNIA 01/27/17 Albuterol Sulfate 90 Mcg/Act (PROAIR HFA 90 MCG/ACT) 8.5 Gm Hfa.aer.ad, 2 PUFF IH Q4-6H PRN for DYSPNEA, INHALER 01/27/17 Multivitamin (MULTIVITAMINS) 1 Each Capsule, 1 EACH PO DAILY, CAPSULE 12/08/16 Discontinued Reported Medications Metoprolol Succinate (METOPROLOL SUCCINATE) 25 Mg Tab.er.24h, 1 TAB PO QDAY, TAB 03/03/18 [place]-3/Dha/Epa/Fish Oil (OMEGA-3 FISH OIL 1,000 MG SFGL) 1,000 Mg Capsule, 1000 MG PO BID, CAPSULE 07/06/17 Discontinued Scripts Furosemide (LASIX) 20 Mg Tablet, 1 TAB PO DAILY for edema, #30 TAB Prov:SKINNY EMMANUEL MD 03/18/18 Meclizine Hcl (MECLIZINE HCL) 25 Mg Tablet, 25 MG PO Q8H for dizziness, #20 TAB 0 Refills Prov:FRAN FU MD 02/26/18 Diltiazem Hcl (DILTIAZEM 24HR CD) 120 Mg Cap.er.24h, 120 MG PO QDAY for 30 Days, #30 CAP 1 Refill Prov:ARIELLE MCCOY MD 02/25/18 Doxycycline Hyclate (DOXYCYCLINE HYCLATE) 100 Mg Capsule, 100 MG PO BID, #6 CAPSULE Prov:[facility] 02/22/18 Docusate Sodium (COLACE) 100 Mg Capsule, 100 MG PO BID PRN for CONSTIPATION, #60 CAPSULE Prov:[facility]I R[facility] 02/22/18 Montelukast Sodium (SINGULAIR) 10 Mg Tablet, 10 MG PO QDAY, #30 TAB Prov:[facility] 02/22/18 Prednisone 10 Mg Tab (PREDNISONE 10 MG TAB) 10 Mg Tablet, 6 TAB PO QDAY, #63 TAB Take 6 tabs daily for 3 days, then decrease by 1 tab every 3 days until gone. Prov:[facility] 02/22/18 Esomeprazole Magnesium (NEXIUM) 40 Mg Capsule.dr, 1 CAP PO QDAY, #30 CAP Prov:SKINNY EMMANUEL MD 02/01/18 Reviewed Nurses Notes: Yes Hx Smoking: Yes Smoking Status: Current: Every Day Smoker, Light Tobacco Smoker Exposure to Second Hand Smoke?: Yes Hx Substance Use Disorder: No Hx Alcohol Use: No Constitutional Vital Sign - Last 24 Hours 03/24/18 03/24/18 03/24/18 03/24/18 03:33 03:34 03:34 03:41 Temp 98.4 Pulse 82 84 Resp 24 B/P (MAP) 127/70 (89) 127/70 Pulse Ox 94 93 O2 Delivery Nasal Cannula O2 Flow Rate 4.0 03/24/18 03/24/18 03/24/18 03/24/18 03:49 04:04 04:10 04:10 Pulse 80 79 74 Resp 16 Pulse Ox 93 95 O2 Delivery Nasal Cannula O2 Flow Rate 4.0 03/24/18 03/24/18 03/24/18 03/24/18 04:19 04:31 04:34 04:39 Pulse 83 91 88 B/P (MAP) 124/62 (82) Pulse Ox 99 93 93 03/24/18 03/24/18 03/24/18 03/24/18 04:54 05:00 05:09 05:24 Pulse 85 85 83 B/P (MAP) 122/62 (82) Pulse Ox 90 92 91 03/24/18 03/24/18 03/24/18 03/24/18 05:30 05:33 05:33 05:39 Pulse 81 83 Resp 16 B/P (MAP) 121/51 (74) Pulse Ox 91 93 O2 Delivery Nasal Cannula O2 Flow Rate 4.0 03/24/18 05:54 Pulse 86 Pulse Ox 90 Physical Exam General Appearance: The patient is alert. No acute distress. Eyes: Pupils are equal, round. No pallor, injection or icterus. ENT: Mucous membranes are moist. Normal oral mucosa. Posterior oropharynx is normal. Neck: Supple and non tender. Respiratory: Lungs with scattered expiratory wheezing. No rales or rhonchi. No accessory muscle use. Cardiovascular: Regular rate and rhythm. No murmurs, gallops or rubs. Neurological: Alert and oriented x3 Skin: Warm and dry. DIFFERENTIAL DIAGNOSIS: After history and physical exam, differential diagnosis was considered for ED shortness breath differential Medical Decision Making ED Course/Re-evaluation ED Course IV with labs done. Albuterol 7.5mg neb done. Solu-Medrol 125mg IV given. Oxygen decreased to 2.5lpm. Repeat DuoNeb and started Prednisone 60mg oral dose. Decision to Disposition Date: Mar 24, 2018 Decision to Disposition Time: 06:29 Depart Departure Latest Vital Signs Vital Signs Date Time Temp Pulse Resp B/P (MAP) Pulse Ox O2 Delivery O2 Flow Rate FiO2 03/24/18 05:54 86 90 03/24/18 05:33 Nasal Cannula 4.0 03/24/18 05:33 16 03/24/18 05:30 121/51 (74) 03/24/18 03:34 98.4 Core Temperature (Celsius): 37.23 Impression: Primary Impression: COPD (chronic obstructive pulmonary disease) Condition: Improved Disposition: HOME OR SELF-CARE Referrals: SKINNY EMMANUEL MD (PCP) New Scripts Prednisone (PREDNISONE) 20 Mg Tablet 60 MG PO QDAY, #30 TAB 0 Refills Prov: GARY RODRIGUEZ MD 03/24/18 Patient Instructions: COPD (Chronic Obstructive Pulmonary Disease) (ED) Additional Instructions: Keep doing your breathing treatments. Re-start Prednisone 20mg tablet, take 3 tablets once a day. See your regular doctor next week for adjustment and tapering of the Prednisone. Start over the counter Mucinex and increase fluid intake to help get the mucous out with your coughing. Problem Qualifiers Primary Impression: COPD (chronic obstructive pulmonary disease) COPD type: COPD with acute exacerbation Qualified Codes: J44.1 - Chronic obstructive pulmonary disease with (acute) exacerbation GARY RODRIGUEZ MD Mar 24, 2018 03:36
[2018-03-24] MEDS ORDERED: ALBUTEROL 2.5 MG/3 ML NEB NEB ONE (03:45)
[2018-03-24] MEDS ORDERED: methylPREDNIS SUCC 125 MG/2ML IVP ONE (03:45)
[2018-03-24] MEDS ORDERED: ALBUTEROL/IPRATROPIUM 3 ML NEB NEB ONE (05:15)
[2018-03-24] MEDS ORDERED: predniSONE 20 MG TAB PO ONE (05:15)
[2018-03-24 06:30] VITALS: BP 127/71
[2018-03-24] MEDS ORDERED: PRED20TA6 PO (06:31)
== END 2018-03-24 06:54 | disposition home or self-care (01) ==
LOC: ER 03:48
DX: J44.1 Chronic obstructive pulmonary disease with (acute) exacerbation (principal)
CPT/HCPCS: 94640; 96374; 99284; J2930; J7512; J7613; J7620

== ENCOUNTER 2018-04-11 19:18 | Emergency (ER) | payer MEDICARE, BC ==
[2018-03-25 11:42] VITALS: Wt 122.5 kg
--- NOTE | 2018-04-11 19:30 | ER Report ---
History and Physical Time Seen By MD: 19:26 Hx. of Stated Complaint: patient states she was moving boxes on , stepped wrong and now having pain in knee, that has been getting worse since incident. patient has been icing, elevating and taking mortin and tyelnol with no relief of pain. HPI/ROS CHIEF COMPLAINT: Right knee pain HISTORY OF PRESENT ILLNESS: This is a 52-year-old female who presents to the emergency department for right knee pain. Patient states that about 6 days ago she slipped and twisted her right knee, didn't think much of it, throughout the course of weeks she'd been moving some boxes began to have some increased right knee pain since only decided come in for further evaluation. Patient states she's been icing her knee and taking ibuprofen to help with the discomfort, she became concerned as this was not helping. No obvious deformities, no swelling or bruising. No fevers or chills. No erythema or cellulitic appearing knee. REVIEW OF SYSTEMS: Respiratory: No cough, no dyspnea. Cardiovascular: No chest pain, no palpitations. Gastrointestinal: No vomiting, no abdominal pain. Musculoskeletal: As above. Allergies: Coded Allergies: aripiprazole (Verified Allergy, Intermediate, RASH, 04/11/18) lithium (Verified Allergy, Intermediate, RASH, 04/11/18) lurasidone (Verified Allergy, Intermediate, 04/11/18) quetiapine (Verified Allergy, Intermediate, DIZZY, 04/11/18) DIzzy varenicline (Verified Allergy, Intermediate, SWELLING, 04/11/18) ciprofloxacin (Verified Allergy, Mild, N/V, 04/11/18) sulfamethoxazole (Verified Allergy, Mild, HIVES, 04/11/18) topiramate (Verified Allergy, Mild, UPSET STOMACH, 04/11/18) Upset stomach trimethoprim (Verified Allergy, Mild, HIVES, 04/11/18) metoprolol (Unverified Allergy, Unknown, 04/11/18) dyspnea haloperidol (Verified Adverse Reaction, Severe, DYSTONIC REACTION, 04/11/18) propofol (Verified Adverse Reaction, Severe, HALLUCINATIONS, 04/11/18) PT STATES "I HEARD VOICES TELLING ME TO KILL MYSELF THE NIGHT AFTER I HAD A COLONOSCOPY" amoxicillin (Verified Adverse Reaction, Intermediate, Pruritus , 04/11/18) adhesive tape (Verified Adverse Reaction, Mild, RASH, 04/11/18) fluticasone (Verified Adverse Reaction, Mild, THRUSH, 04/11/18) salmeterol (Verified Adverse Reaction, Mild, THRUSH, 04/11/18) Home Meds Active Scripts Diltiazem Hcl (DILTIAZEM 24HR CD) 240 Mg Cap.er.24h, 240 MG PO QDAY, #30 CAP.SR.24H 0 Refills Prov:MARCELLA HILTON MD 04/07/18 Azithromycin (ZITHROMAX) 250 Mg Tablet, 1 TAB PO DIRECTED, #14 TAB Take three times a week on , Wednesdays and Fridays. Prov:SKINNY EMMANUEL MD 03/31/18 Prednisone (PREDNISONE) 20 Mg Tablet, 60 MG PO QDAY, #30 TAB 0 Refills Prov:GARY RODRIGUEZ MD 03/24/18 Ondansetron 4 Mg Odt (ONDANSETRON 4 MG ODT) 4 Mg Tab.rapdis, 4 MG PO ONCE for 5 Days, TAB Prov:YUDI VALADEZ MD 03/23/18 Lactulose (LACTULOSE) 20 Gm/30 Ml Soln, 20 GM PO DAILY, #500 ML Prov:SKINNY EMMANUEL MD 01/15/18 Tiotropium [place] (SPIRIVA) 18 Mcg/Cap Inh, 2 PUFF INH DAILY, #1 INH 11 Refills Prov:SKINNY EMMANUEL MD 05/14/17 Nystatin (NYSTOP) 60 Gm Powder, 1 DONALD TP BID, #1 BOTTLE 0 Refills APPLY TO AFFECTED AREA TWICE A DAY Prov:SKINNY EMMANUEL MD 03/13/17 Reported Medications Oxygen (OXYGEN) Inha, 2 L INH QDAY, L 01/09/18 Budesonide/Formoterol Fumarate (SYMBICORT 80-4.5 MCG INHALER) 10.2 Gm Hfa.aer.ad, 10.2 GM IH BID 12/07/17 Bupropion Hcl (WELLBUTRIN SR) 150 Mg Tablet.er, 150 MG PO QDAY, TAB 11/11/17 Melatonin (MELATONIN) 2.5 Mg Tab.chew, 2.5 MG PO DAILY, TAB.CHEW 11/11/17 Escitalopram Oxalate (ESCITALOPRAM OXALATE) 20 Mg Tablet, 20 MG PO QDAY 11/11/17 Pramipexole Di-Hcl (MIRAPEX) 1 Mg Tablet, 1 MG PO DAILY 11/11/17 Famotidine (FAMOTIDINE) 20 Mg Tablet, 20 MG PO QDAY, TAB 11/11/17 Cholecalciferol (Vitamin D3) (VITAMIN D3) 1,000 Unit Tablet, 1000 UNIT PO QDAY, TAB 06/20/17 Ibuprofen (IBUPROFEN) 200 Mg Tablet, 2 TAB PO Q8H PRN for PAIN, TAB (MOTRIN): TAKE 400 MG EVERY 8 HRS NEEDED FOR PAIN. 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 Reviewed Nurses Notes: Yes Hx Smoking: Yes Smoking Status: Current: Every Day Smoker, Light Tobacco Smoker Exposure to Second Hand Smoke?: Yes Hx Substance Use Disorder: No Hx Alcohol Use: No Constitutional Vital Sign - Last 24 Hours 04/11/18 04/11/18 04/11/18 04/11/18 19:23 19:30 19:33 19:45 Temp 98.2 Pulse 83 77 Resp 24 B/P (MAP) 152/84 135/83 (100) 112/60 (77) Pulse Ox 94 94 O2 Delivery Room Air 04/11/18 04/11/18 04/11/18 04/11/18 19:48 20:00 20:03 20:30 Pulse 75 88 B/P (MAP) 98/73 (81) 135/78 (97) Pulse Ox 94 95 04/11/18 04/11/18 04/11/18 04/11/18 20:33 20:45 20:48 20:53 Pulse 70 67 69 B/P (MAP) 128/71 (90) Pulse Ox 96 96 96 04/11/18 20:58 Pulse 66 Pulse Ox 96 Physical Exam General Appearance: The patient is alert, has no immediate need for airway protection and no current signs of toxicity. Eyes: Pupils equal and round no injection. Respiratory: Chest is non tender, lungs are clear to auscultation. Cardiac: regular rate and rhythm Gastrointestinal: Abdomen is soft and non tender, no masses, bowel sounds normal. Musculoskeletal: Neck: Neck is supple and non tender. Extremities have full range of motion, right medial knee pain with palpation. Mild valgus discomfort, negative varus discomfort. Positive straight leg raise. Skin: No rashes or lesions. DIFFERENTIAL DIAGNOSIS: After history and physical exam differential diagnosis was considered for contusion, fracture, subluxation, effusion. Medical Decision Making EKG/Imaging Imaging Location: [facility] - [place] Patient: Natividad Loaiza : 1965 Visit/Account:[id number] Date of Sevice: 04/11/2018 EXAMINATION: Right knee, 4 views 04/11/2018 7:36 PM HISTORY: pain, injury. Fall 3 days ago. COMPARISON: No right knee comparisons. Left knee 08/15/2014. FINDINGS: Mild tricompartmental degenerative spurring. No substantial visible joint effusion. No acute bony injury. IMPRESSION: Mild osteoarthritis. No acute bony injury. Report Dictated By: Flex Sauceda MD at 04/11/2018 8:34 PM Report E-Signed By: Flex Sauceda MD at 04/11/2018 8:36 PM WSN:[id number] ED Course/Re-evaluation ED Course The patient was admitted to room. A history and physical were obtained. Differential diagnoses were considered. An x-ray of the right knee was negative for any acute osseous abnormalities. The patient was placed in a right knee immobilizer. I did review the imaging results with the patient, did tell her that this is likely a knee sprain I did recommend following up with her primary care provider or [facility] for reevaluation. Patient was understanding was discharged home. Patient was aggressive plan of care. Decision to Disposition Date: Apr 11, 2018 Decision to Disposition Time: 20:55 Depart Departure Latest Vital Signs Vital Signs Date Time Temp Pulse Resp B/P (MAP) Pulse Ox O2 Delivery O2 Flow Rate FiO2 04/11/18 20:58 66 96 04/11/18 20:45 128/71 (90) 04/11/18 19:23 98.2 24 Room Air Core Temperature (Celsius): 37.23 Impression: Primary Impression: Right knee sprain Condition: Stable Disposition: HOME OR SELF-CARE Referrals: SKINNY EMMANUEL MD (PCP) VICTORINO LOVE MD 1 Week Patient Instructions: Knee Sprain (ED) Additional Instructions: No evidence of fracture or dislocation of the right knee. I believe you have a knee sprain. Keep the knee immobilizer on while ambulating. Please follow up with your primary care provider or [facility] within 1 week for reevaluation. You can take 600-800mg of Ibuprofen every 8 hours as needed for pain, you can also try 500-1000mg of Tylenol (xrtra strength) every 8 hours as needed for additional pain relief. Keep the leg elevated to the level of the waist to help with additional discomfort. Drink plenty of water. Get plenty of rest. Return to the emergency department for any other concerns or worsening symptoms. Problem Qualifiers Primary Impression: Right knee sprain Encounter type: initial encounter Involved ligament of knee: unspecified ligament Qualified Codes: S83.91XA - Sprain of unspecified site of right knee, initial encounter GUILLE TODD BIN PACKER-BC Apr 11, 2018 19:30
--- NOTE | 2018-04-11 20:40 | RADIOLOGY IMAGING REPORT ---
FACILITY: [facility] PATIENT NAME: Natividad Loaiza : 1965 MR: [id number] V: [id number] EXAM DATE: ORDERING PHYSICIAN: GUILLE TODD TECHNOLOGIST: Location: [facility] Patient: Natividad Loaiza : 1965 Visit/Account:[id number] Date of Sevice: 04/11/2018 EXAMINATION: Right knee, 4 views 04/11/2018 7:36 PM HISTORY: pain, injury. Fall 3 days ago. COMPARISON: No right knee comparisons. Left knee 08/15/2014. FINDINGS: Mild tricompartmental degenerative spurring. No substantial visible joint effusion. No acu te bony injury. IMPRESSION: Mild osteoarthritis. No acute bony injury. Report Dictated By: Flex Sauceda MD at 04/11/2018 8:34 PM Report E-Signed By: Flex Sauceda MD at 04/11/2018 8:36 PM WSN:[id number]
[2018-04-11 20:45] VITALS: BP 128/71
[2018-04-12] MEDS ORDERED: DILT240C4 PO (13:05)
== END 2018-04-11 21:03 | disposition home or self-care (01) ==
LOC: ER 19:36
DX: S83.91XA Sprain of unspecified site of right knee, initial encounter (principal)
CPT/HCPCS: 73564; 99283; L1830

== ENCOUNTER 2018-04-13 19:49 | Emergency (ER) | payer MEDICARE, BC ==
[2018-03-25 11:42] VITALS: Wt 122.5 kg
[~2018-04-13 19:49] MED LIST changes: -AMLO-111 PO; +AMLO-125 PO
[2018-04-13 19:52] VITALS: BP 140/110
--- NOTE | 2018-04-13 19:54 | ER Report ---
History and Physical Time Seen By MD: 19:53 HPI/ROS CHIEF COMPLAINT: Right knee pain HISTORY OF PRESENT ILLNESS: 52-year-old female presents ambulatory to the ER complaining of right knee pain. She was seen here 2 days ago after a twisting injury. Diagnostic x-rays were unremarkable. She was placed in a knee immobilizer. Patient presented to the ER by ambulating into the waiting room without any immobilizer or crutches. She wrote a wheelchair back to her bed. She freely moves her leg on the bed without any pain or difficulty. Patient complains that her pain is worse is spreading down the back of her calf. Patient states she's been taking ibuprofen and Tylenol without improvement. Patient states the knee immobilizer doesn't fit intense to slide down her leg since she has calmed shaped legs. REVIEW OF SYSTEMS: Respiratory: No cough, no dyspnea. Cardiovascular: No chest pain, no palpitations. Gastrointestinal: No vomiting, no abdominal pain. Musculoskeletal: As above Allergies: Coded Allergies: aripiprazole (Verified Allergy, Intermediate, RASH, 04/13/18) lithium (Verified Allergy, Intermediate, RASH, 04/13/18) lurasidone (Verified Allergy, Intermediate, 04/13/18) quetiapine (Verified Allergy, Intermediate, DIZZY, 04/13/18) DIzzy varenicline (Verified Allergy, Intermediate, SWELLING, 04/13/18) ciprofloxacin (Verified Allergy, Mild, N/V, 04/13/18) sulfamethoxazole (Verified Allergy, Mild, HIVES, 04/13/18) topiramate (Verified Allergy, Mild, UPSET STOMACH, 04/13/18) Upset stomach trimethoprim (Verified Allergy, Mild, HIVES, 04/13/18) metoprolol (Unverified Allergy, Unknown, 04/13/18) dyspnea haloperidol (Verified Adverse Reaction, Severe, DYSTONIC REACTION, 04/13/18) propofol (Verified Adverse Reaction, Severe, HALLUCINATIONS, 04/13/18) PT STATES "I HEARD VOICES TELLING ME TO KILL MYSELF THE NIGHT AFTER I HAD A COLONOSCOPY" amoxicillin (Verified Adverse Reaction, Intermediate, Pruritus , 04/13/18) adhesive tape (Verified Adverse Reaction, Mild, RASH, 04/13/18) fluticasone (Verified Adverse Reaction, Mild, THRUSH, 04/13/18) salmeterol (Verified Adverse Reaction, Mild, THRUSH, 04/13/18) Home Meds Active Scripts Diltiazem Hcl (DILTIAZEM 24HR CD) 240 Mg Cap.er.24h, 240 MG PO QDAY, #90 CAP.SR.24H 3 Refills Prov:SKINNY EMMANUEL MD 04/12/18 Azithromycin (ZITHROMAX) 250 Mg Tablet, 1 TAB PO DIRECTED, #14 TAB Take three times a week on , Wednesdays and Fridays. Prov:SKINNY EMMANUEL MD 03/31/18 Prednisone (PREDNISONE) 20 Mg Tablet, 60 MG PO QDAY, #30 TAB 0 Refills Prov:GARY RODRIGUEZ MD 03/24/18 Ondansetron 4 Mg Odt (ONDANSETRON 4 MG ODT) 4 Mg Tab.rapdis, 4 MG PO ONCE for 5 Days, TAB Prov:YUDI VALADEZ MD 03/23/18 Lactulose (LACTULOSE) 20 Gm/30 Ml Soln, 20 GM PO DAILY, #500 ML Prov:SKINNY EMMANUEL MD 01/15/18 Tiotropium [place] (SPIRIVA) 18 Mcg/Cap Inh, 2 PUFF INH DAILY, #1 INH 11 Refills Prov:SKINNY EMMANUEL MD 05/14/17 Nystatin (NYSTOP) 60 Gm Powder, 1 DONALD TP BID, #1 BOTTLE 0 Refills APPLY TO AFFECTED AREA TWICE A DAY Prov:SKINNY EMMANUEL MD 03/13/17 Reported Medications Oxygen (OXYGEN) Inha, 2 L INH QDAY, L 01/09/18 Budesonide/Formoterol Fumarate (SYMBICORT 80-4.5 MCG INHALER) 10.2 Gm Hfa.aer.ad, 10.2 GM IH BID 12/07/17 Bupropion Hcl (WELLBUTRIN SR) 150 Mg Tablet.er, 150 MG PO QDAY, TAB 11/11/17 Melatonin (MELATONIN) 2.5 Mg Tab.chew, 2.5 MG PO DAILY, TAB.CHEW 11/11/17 Escitalopram Oxalate (ESCITALOPRAM OXALATE) 20 Mg Tablet, 20 MG PO QDAY 11/11/17 Pramipexole Di-Hcl (MIRAPEX) 1 Mg Tablet, 1 MG PO DAILY 11/11/17 Famotidine (FAMOTIDINE) 20 Mg Tablet, 20 MG PO QDAY, TAB 11/11/17 Cholecalciferol (Vitamin D3) (VITAMIN D3) 1,000 Unit Tablet, 1000 UNIT PO QDAY, TAB 06/20/17 Ibuprofen (IBUPROFEN) 200 Mg Tablet, 2 TAB PO Q8H PRN for PAIN, TAB (MOTRIN): TAKE 400 MG EVERY 8 HRS NEEDED FOR PAIN. 02/03/17 Hydroxyzine Pamoate (HYDROXYZINE PAMOATE) 25 Mg Capsule, 25 TAB PO Q8H PRN for ANXIETY/INSOMNIA 01/27/17 Albuterol Sulfate 90 Mcg/Act (PROAIR HFA 90 MCG/ACT) 8.5 Gm Hfa.aer.ad, 2 PUFF IH Q4-6H PRN for DYSPNEA, INHALER 01/27/17 Multivitamin (MULTIVITAMINS) 1 Each Capsule, 1 EACH PO DAILY, CAPSULE 12/08/16 Discontinued Scripts Diltiazem Hcl (DILTIAZEM 24HR CD) 240 Mg Cap.er.24h, 240 MG PO QDAY, #30 CAP.SR.24H 0 Refills Prov:GARY RODRIGUEZ MD 03/03/18 Reviewed Nurses Notes: Yes Old Medical Records Reviewed: Yes Hx Smoking: Yes Smoking Status: Current: Every Day Smoker, Light Tobacco Smoker Exposure to Second Hand Smoke?: Yes Hx Substance Use Disorder: No Hx Alcohol Use: No Constitutional Vital Sign - Last 24 Hours 04/13/18 19:52 Temp 98.1 Pulse 80 Resp 18 B/P (MAP) 140/110 Pulse Ox 96 O2 Delivery Nasal Cannula Physical Exam General appearance: Alert no distress. Respiratory: Chest is non tender, lungs are clear to auscultation. Cardiac: Regular rate and rhythm Extremities: Examination of the right lower extremity reveals a normal appearing knee. There is no knee effusion. There is no warmth. There is no fluid. It's palpable. All ligaments are intact. Upon stressing. James's maneuver is unremarkable. There is no tenderness on compression of the calf. There is no Homans sign, all digits are neurovascularly intact. DIFFERENTIAL DIAGNOSIS: After history and physical exam differential diagnosis was considered for sprain, strain, fracture, dislocation, contusion, internal derangement, arthritis, gout Medical Decision Making ED Course/Re-evaluation ED Course Patient was admitted to an examination room. H&P was done. The differential diagnoses was considered. On clinical examination. Patient has a benign the examination. Patient's on a treatment plan restricting use of opiates and benzos. Patient is on maximal medical therapy. She will be given a lidocaine patch 5% to apply to the area. This causing the most severe pain to alleviate her symptoms. She is advised to follow-up with her primary care physician Decision to Disposition Date: Apr 13, 2018 Decision to Disposition Time: 20:06 Depart Departure Latest Vital Signs Vital Signs Date Time Temp Pulse Resp B/P (MAP) Pulse Ox O2 Delivery O2 Flow Rate FiO2 04/13/18 19:52 98.1 80 18 140/110 96 Nasal Cannula Core Temperature (Celsius): 37.23 Impression: Primary Impression: Right knee sprain Condition: Improved Disposition: HOME OR SELF-CARE Referrals: SKINNY EMMANUEL MD (PCP) Patient Instructions: Knee Sprain (ED) Additional Instructions: Follow-up with your primary care for further pain medication needs, your primary care physician can prescribe some physical therapy, which will aid in healing of your knee. Follow-up with Dr. Barnes for further orthopedic evaluation of your knee Problem Qualifiers Primary Impression: Right knee sprain Encounter type: initial encounter Involved ligament of knee: medial collateral ligament Qualified Codes: S83.411A - Sprain of medial collateral ligament of right knee, initial encounter DENIA PUGA DO Apr 13, 2018 19:54
[2018-04-13] MEDS ORDERED: LIDOCAINE 5% PATCH TP SCH (20:05)
[2018-04-13] MEDS ORDERED: PATCH REMOVAL 1 EA TOP SCH (21:00)
[2018-04-16] MEDS ORDERED: KETO30CA16 IJ (11:29)
== END 2018-04-13 20:20 | disposition home or self-care (01) ==
LOC: ER 20:09
DX: S83.411A Sprain of medial collateral ligament of right knee, initial encounter (principal)
CPT/HCPCS: 99282; A9270

== ENCOUNTER 2018-04-17 09:41 | Emergency (ER) | payer MEDICARE, BC ==
[2018-03-25 11:42] VITALS: Wt 123.8 kg
[~2018-04-17 09:41] MED LIST changes: +KETO30CA16 IJ
--- NOTE | 2018-04-17 09:43 | ER Report ---
History and Physical Time Seen By MD: 09:43 HPI/ROS CHIEF COMPLAINT: Right upper extremity and right lower extremity edema and right calf pain HISTORY OF PRESENT ILLNESS: Patient is a 52-year-old female here with complaints of right lower extremity swelling for approximately one week now with right foot swelling, calf pain, distal right upper extremity swelling and wrist pain. Patient is on baseline supplemental oxygen reports mild increase in dyspnea. Patient is afebrile at time of evaluation, hemodynamically stable. She is neurovascularly intact in her edematous extremities. REVIEW OF SYSTEMS: Constitutional: No fever, no chills. Eyes: No discharge. ENT: No sore throat. Cardiovascular: + chest tightness no palpitations. Respiratory: No cough, + mild increase in baseline shortness of breath. Gastrointestinal: No abdominal pain, no vomiting. Genitourinary: No hematuria. Musculoskeletal: + RUE and RLE distal swelling Skin: No rashes. Neurological: + NV intact in distal extremities Allergies: Coded Allergies: aripiprazole (Verified Allergy, Intermediate, RASH, 04/13/18) lithium (Verified Allergy, Intermediate, RASH, 04/13/18) lurasidone (Verified Allergy, Intermediate, 04/13/18) quetiapine (Verified Allergy, Intermediate, DIZZY, 04/13/18) DIzzy varenicline (Verified Allergy, Intermediate, SWELLING, 04/13/18) ciprofloxacin (Verified Allergy, Mild, N/V, 04/13/18) sulfamethoxazole (Verified Allergy, Mild, HIVES, 04/13/18) topiramate (Verified Allergy, Mild, UPSET STOMACH, 04/13/18) Upset stomach trimethoprim (Verified Allergy, Mild, HIVES, 04/13/18) metoprolol (Unverified Allergy, Unknown, 04/13/18) dyspnea haloperidol (Verified Adverse Reaction, Severe, DYSTONIC REACTION, 04/13/18) propofol (Verified Adverse Reaction, Severe, HALLUCINATIONS, 04/13/18) PT STATES "I HEARD VOICES TELLING ME TO KILL MYSELF THE NIGHT AFTER I HAD A COLONOSCOPY" amoxicillin (Verified Adverse Reaction, Intermediate, Pruritus , 04/13/18) adhesive tape (Verified Adverse Reaction, Mild, RASH, 04/13/18) fluticasone (Verified Adverse Reaction, Mild, THRUSH, 04/13/18) salmeterol (Verified Adverse Reaction, Mild, THRUSH, 04/13/18) Home Meds Active Scripts Diltiazem Hcl (DILTIAZEM 24HR CD) 240 Mg Cap.er.24h, 240 MG PO QDAY, #90 CAP.SR.24H 3 Refills Prov:SKINNY EMMANUEL MD 04/12/18 Azithromycin (ZITHROMAX) 250 Mg Tablet, 1 TAB PO DIRECTED, #14 TAB Take three times a week on , Wednesdays and Fridays. Prov:SKINNY EMMANUEL MD 03/31/18 Ondansetron 4 Mg Odt (ONDANSETRON 4 MG ODT) 4 Mg Tab.rapdis, 4 MG PO ONCE for 5 Days, TAB Prov:YUDI VALADEZ MD 03/23/18 Tiotropium [place] (SPIRIVA) 18 Mcg/Cap Inh, 2 PUFF INH DAILY, #1 INH 11 Refills Prov:SKINNY EMMANUEL MD 05/14/17 Reported Medications Oxygen (OXYGEN) Inha, 2 L INH QDAY, L 01/09/18 Budesonide/Formoterol Fumarate (SYMBICORT 80-4.5 MCG INHALER) 10.2 Gm Hfa.aer.ad, 10.2 GM IH BID 12/07/17 Bupropion Hcl (WELLBUTRIN SR) 150 Mg Tablet.er, 150 MG PO QDAY, TAB 11/11/17 Escitalopram Oxalate (ESCITALOPRAM OXALATE) 20 Mg Tablet, 20 MG PO QDAY 11/11/17 Pramipexole Di-Hcl (MIRAPEX) 1 Mg Tablet, 1 MG PO DAILY 11/11/17 Famotidine (FAMOTIDINE) 20 Mg Tablet, 20 MG PO QDAY, TAB 11/11/17 Cholecalciferol (Vitamin D3) (VITAMIN D3) 1,000 Unit Tablet, 1000 UNIT PO QDAY, TAB 06/20/17 Ibuprofen (IBUPROFEN) 200 Mg Tablet, 2 TAB PO Q8H PRN for PAIN, TAB (MOTRIN): TAKE 400 MG EVERY 8 HRS NEEDED FOR PAIN. 02/03/17 Hydroxyzine Pamoate (HYDROXYZINE PAMOATE) 25 Mg Capsule, 25 TAB PO Q8H PRN for ANXIETY/INSOMNIA 01/27/17 Albuterol Sulfate 90 Mcg/Act (PROAIR HFA 90 MCG/ACT) 8.5 Gm Hfa.aer.ad, 2 PUFF IH Q4-6H PRN for DYSPNEA, INHALER 01/27/17 Multivitamin (MULTIVITAMINS) 1 Each Capsule, 1 EACH PO DAILY, CAPSULE 12/08/16 Discontinued Reported Medications Melatonin (MELATONIN) 2.5 Mg Tab.chew, 2.5 MG PO DAILY, TAB.CHEW 11/11/17 Discontinued Scripts Prednisone (PREDNISONE) 20 Mg Tablet, 60 MG PO QDAY, #30 TAB 0 Refills Prov:GARY RODRIGUEZ MD 03/24/18 Lactulose (LACTULOSE) 20 Gm/30 Ml Soln, 20 GM PO DAILY, #500 ML Prov:SKINNY EMMANUEL MD 01/15/18 Nystatin (NYSTOP) 60 Gm Powder, 1 DONALD TP BID, #1 BOTTLE 0 Refills APPLY TO AFFECTED AREA TWICE A DAY Prov:SKINNY EMMANUEL MD 03/13/17 Hx Smoking: Yes Smoking Status: Current: Every Day Smoker, Light Tobacco Smoker Exposure to Second Hand Smoke?: Yes Hx Substance Use Disorder: No Hx Alcohol Use: No Constitutional Vital Sign - Last 24 Hours 04/17/18 04/17/18 04/17/18 04/17/18 09:44 09:46 10:00 10:01 Temp 98.2 Pulse 84 82 82 Resp 18 B/P (MAP) 133/111 133/111 (118) 129/72 (91) Pulse Ox 94 O2 Delivery Nasal Cannula O2 Flow Rate 2.0 04/17/18 04/17/18 04/17/18 04/17/18 10:05 10:30 10:35 11:00 Pulse 79 71 B/P (MAP) 123/71 (88) 118/72 (87) Pulse Ox 95 95 04/17/18 11:05 Pulse 70 Pulse Ox 96 Physical Exam General Appearance: The patient is alert, has no immediate need for airway protection and no signs of toxicity. NAD Eyes: Pupils equal and round no pallor or injection. ENT, Mouth: Mucous membranes are moist. Respiratory: There are no retractions, lungs are mildly diminished at bases, + diffuse wheezing and crackles in all lung fountain Cardiovascular: Regular rate and rhythm. Gastrointestinal: Abdomen is soft and non tender, no masses, bowel sounds normal. Neurological: No focal neuro deficits Skin: Warm and dry, no rashes. Musculoskeletal: Neck is supple non tender. + Mild 1 + pitting edema of RUE and RLE distal extremities DIFFERENTIAL DIAGNOSIS: After history and physical exam differential diagnosis was considered for DVT, CHF exacerbation, vascular congestion, COPD exacerbation, musculoskeletal pain Medical Decision Making Data Points Result Diagram: 04/17/18 0959 04/17/18 0959 Laboratory Hematology Test 04/17/18 09:59 04/17/18 10:14 Red Blood Count 4.11 M/uL (4.17-5.56) Mean Corpuscular Volume 91.8 fL (80.0-96.0) Mean Corpuscular Hemoglobin 31.4 pg (26.0-33.0) Mean Corpuscular Hemoglobin Concent 34.2 g/dL (32.0-36.0) Red Cell Distribution Width 13.6 % (11.5-14.5) Mean Platelet Volume 8.8 fL (7.2-11.1) Neutrophils (%) (Auto) 71.7 % (39.4-72.5) Lymphocytes (%) (Auto) 16.2 % (17.6-49.6) Monocytes (%) (Auto) 9.7 % (4.1-12.4) Eosinophils (%) (Auto) 1.7 % (0.4-6.7) Basophils (%) (Auto) 0.7 % (0.3-1.4) Nucleated RBC Relative Count (auto) 0.0 /100WBC Neutrophils # (Auto) 3.5 K/uL (2.0-7.4) Lymphocytes # (Auto) 0.8 K/uL (1.3-3.6) Monocytes # (Auto) 0.5 K/uL (0.3-1.0) Eosinophils # (Auto) 0.1 K/uL (0.0-0.5) Basophils # (Auto) 0.0 K/uL (0.0-0.1) Nucleated RBC Absolute Count (auto) 0.00 K/uL Blood Gas Patient Temperature 98.1 DEGREES Venous Blood pH 7.38 (7.31-7.41) Venous Blood Partial Pressure CO2 47 mmHg Venous Blood Partial Pressure O2 48 mmHg Venous Blood HCO3 28 mmol/L Venous Blood Oxygen Saturation 83 % Venous Blood Base Excess 2 mmol/L Oxygen Liters/Minute 2l Sodium Level 137 mmol/L (137-145) Potassium Level 3.8 mmol/L (3.5-5.0) Chloride Level 100 mmol/L (98-107) Carbon Dioxide Level 29 mmol/L (22-31) Blood Urea Nitrogen 23 mg/dl (7-18) Creatinine 1.40 mg/dl (0.52-1.04) Glomerular Filtration Rate Calc 39.2 Random Glucose 106 mg/dl (75-110) Calcium Level 9.2 mg/dl (8.4-10.2) Total Bilirubin 0.2 mg/dl (0.2-1.3) Aspartate Amino Transf (AST/SGOT) 15 U/L (0-35) Alanine Aminotransferase (ALT/SGPT) 22 U/L (0-56) Alkaline Phosphatase 78 U/L (0-126) Troponin I < 0.012 ng/ml B-Type Natriuretic Peptide < 5 pg/ml (0-100) Total Protein 6.7 g/dl (6.3-8.2) Albumin 3.8 g/dl (3.5-5.0) Urine Color Yellow Urine Clarity Clear Urine pH 5.0 pH (4.8-9.5) Urine Specific [place] 1.019 Urine Protein Negative mg/dL (NEGATIVE) Urine Glucose (UA) Negative mg/dL (NEGATIVE) Urine Ketones Negative mg/dL (NEGATIVE) Urine Blood Small (NEGATIVE) Urine Nitrite Negative (NEGATIVE) Urine Bilirubin Negative (NEGATIVE) Urine Urobilinogen Negative mg/dL (0.2-1.9) Urine Leukocyte Esterase Negative (NEGATIVE) Urine RBC 1 /HPF (0-2/HPF) Urine WBC 1 /HPF (0-5/HPF) Urine Squamous Epithelial Cells Many /LPF (</=FEW) Urine Bacteria Negative /HPF (NONE-FEW) Urine Mucus None /HPF (NONE-FEW) Chemistry Test 04/17/18 09:59 04/17/18 10:14 White Blood Count 4.9 k/uL (4.5-11.0) Red Blood Count 4.11 M/uL (4.17-5.56) Hemoglobin 12.9 g/dL (12.0-16.0) Hematocrit 37.7 % (34.0-47.0) Mean Corpuscular Volume 91.8 fL (80.0-96.0) Mean Corpuscular Hemoglobin 31.4 pg (26.0-33.0) Mean Corpuscular Hemoglobin Concent 34.2 g/dL (32.0-36.0) Red Cell Distribution Width 13.6 % (11.5-14.5) Platelet Count 200 K/uL (150-450) Mean Platelet Volume 8.8 fL (7.2-11.1) Neutrophils (%) (Auto) 71.7 % (39.4-72.5) Lymphocytes (%) (Auto) 16.2 % (17.6-49.6) Monocytes (%) (Auto) 9.7 % (4.1-12.4) Eosinophils (%) (Auto) 1.7 % (0.4-6.7) Basophils (%) (Auto) 0.7 % (0.3-1.4) Nucleated RBC Relative Count (auto) 0.0 /100WBC Neutrophils # (Auto) 3.5 K/uL (2.0-7.4) Lymphocytes # (Auto) 0.8 K/uL (1.3-3.6) Monocytes # (Auto) 0.5 K/uL (0.3-1.0) Eosinophils # (Auto) 0.1 K/uL (0.0-0.5) Basophils # (Auto) 0.0 K/uL (0.0-0.1) Nucleated RBC Absolute Count (auto) 0.00 K/uL Blood Gas Patient Temperature 98.1 DEGREES Venous Blood pH 7.38 (7.31-7.41) Venous Blood Partial Pressure CO2 47 mmHg Venous Blood Partial Pressure O2 48 mmHg Venous Blood HCO3 28 mmol/L Venous Blood Oxygen Saturation 83 % Venous Blood Base Excess 2 mmol/L Oxygen Liters/Minute 2l Glomerular Filtration Rate Calc 39.2 Calcium Level 9.2 mg/dl (8.4-10.2) Total Bilirubin 0.2 mg/dl (0.2-1.3) Aspartate Amino Transf (AST/SGOT) 15 U/L (0-35) Alanine Aminotransferase (ALT/SGPT) 22 U/L (0-56) Alkaline Phosphatase 78 U/L (0-126) Troponin I < 0.012 ng/ml B-Type Natriuretic Peptide < 5 pg/ml (0-100) Total Protein 6.7 g/dl (6.3-8.2) Albumin 3.8 g/dl (3.5-5.0) Urine Color Yellow Urine Clarity Clear Urine pH 5.0 pH (4.8-9.5) Urine Specific [place] 1.019 Urine Protein Negative mg/dL (NEGATIVE) Urine Glucose (UA) Negative mg/dL (NEGATIVE) Urine Ketones Negative mg/dL (NEGATIVE) Urine Blood Small (NEGATIVE) Urine Nitrite Negative (NEGATIVE) Urine Bilirubin Negative (NEGATIVE) Urine Urobilinogen Negative mg/dL (0.2-1.9) Urine Leukocyte Esterase Negative (NEGATIVE) Urine RBC 1 /HPF (0-2/HPF) Urine WBC 1 /HPF (0-5/HPF) Urine Squamous Epithelial Cells Many /LPF (</=FEW) Urine Bacteria Negative /HPF (NONE-FEW) Urine Mucus None /HPF (NONE-FEW) Urinalysis Test 04/17/18 10:14 Urine Color Yellow Urine Clarity Clear Urine pH 5.0 pH (4.8-9.5) Urine Specific [place] 1.019 Urine Protein Negative mg/dL (NEGATIVE) Urine Glucose (UA) Negative mg/dL (NEGATIVE) Urine Ketones Negative mg/dL (NEGATIVE) Urine Blood Small (NEGATIVE) Urine Nitrite Negative (NEGATIVE) Urine Bilirubin Negative (NEGATIVE) Urine Urobilinogen Negative mg/dL (0.2-1.9) Urine Leukocyte Esterase Negative (NEGATIVE) Urine RBC 1 /HPF (0-2/HPF) Urine WBC 1 /HPF (0-5/HPF) Urine Squamous Epithelial Cells Many /LPF (</=FEW) Urine Bacteria Negative /HPF (NONE-FEW) Urine Mucus None /HPF (NONE-FEW) EKG/Imaging Imaging Please see radiology report for complete US Duplex report Location: [facility] Patient: Natividad Loaiza : 1965 Visit/Account:[id number] Date of Sevice: 04/17/2018 Portable chest, one view. HISTORY: Respiratory distress, smoker. COMPARISON: 03/23/2018. The aortic knob is minimally calcified. The heart and mediastinum are otherwise unremarkable. Pulmonary vessels are unremarkable. The lungs are clear. The pleural surfaces are unremarkable. No pneumothorax. The soft tissues are obese. No acute bony abnormalities. IMPRESSION: No evidence of acute cardiopulmonary disease. ED Course/Re-evaluation ED Course Patient is a 52-year-old female here here with complaints of right upper extremity and right lower extremity swelling, calf pain, wrist pain, foot edema. Neurovascular exam is intact. Patient does have a history of wearing chronic supplemental oxygen via nasal cannula and is on baseline supplemental oxygen levels with only mild complaints of chest tightness and mild increase in dyspnea. Patient is afebrile, hemodynamically stable. Decision was made to complete duplex imaging of the right upper and right lower extremity, obtain chest x-ray and basic labs. CBC unremarkable, troponin negative, BNP negative. Creatinine was 1.4 which is only mildly increased from prior lab findings in March of 1.3. Chest x-ray showed no acute findings. Duplex imaging of the right upper and right lower extremities was completed and showed no evidence of DVT. Patient was advised to follow-up with her PCP within 24-48 hours. Return p recautions provided Decision to Disposition Date: Apr 17, 2018 Decision to Disposition Time: 11:35 Depart Departure Latest Vital Signs Vital Signs Date Time Temp Pulse Resp B/P (MAP) Pulse Ox O2 Delivery O2 Flow Rate FiO2 04/17/18 11:05 70 96 04/17/18 11:00 118/72 (87) 04/17/18 10:01 2.0 04/17/18 09:44 98.2 18 Nasal Cannula Core Temperature (Celsius): 37.23 Impression: Primary Impression: Peripheral edema Condition: Improved Disposition: HOME OR SELF-CARE Referrals: SKINNY EMMANUEL MD (PCP) Patient Instructions: Edema (ED) Additional Instructions: Please follow-up with your primary care provider within the next 24-48 hours. Please continue your current medications as prescribed. Please return immediately should develop chest pain, fevers, abdominal pains, increased swelling, worsening pain. KERI CLARKE DO Apr 17, 2018 09:43
[2018-04-17 10:06] LABS: PLATELET COUNT, AUTOMATED 200 K/uL (150-450)
--- NOTE | 2018-04-17 10:24 | RADIOLOGY IMAGING REPORT ---
FACILITY: [facility] [place] PATIENT NAME: Natividad Loaiza : 1965 MR: [id number] V: [id number] EXAM DATE: ORDERING PHYSICIAN: KERI CLARKE TECHNOLOGIST: Location: [facility] Patient: Natividad Loaiza : 1965 Visit/Account:[id number] Date of Sevice: 04/17/2018 Portable chest, one view. HISTORY: Respiratory distress, smoker. COMPARISON: 03/23/2018. The aortic knob is minimally calcified. The heart and mediastinum are otherwise unremarkable. Pulmon clarisa vessels are unremarkable. The lungs are clear. The pleural surfaces are unremarkable. No pneumot horax. The soft tissues are obese. No acute bony abnormalities. IMPRESSION: No evidence of acute cardiopulmonary disease. Report Dictated By: Fareed Osullivan MD at 04/17/2018 10:16 AM Report E-Signed By: Fareed Osullivan MD at 04/17/2018 10:19 AM WSN:[id number]
[2018-04-17 11:30] VITALS: BP 124/67
--- NOTE | 2018-04-17 12:08 | RADIOLOGY IMAGING REPORT ---
FACILITY: [facility] [place] PATIENT NAME: Natividad Loaiza : 1965 MR: [id number] V: [id number] EXAM DATE: ORDERING PHYSICIAN: KERI CLARKE TECHNOLOGIST: Location: [facility] [place] Patient: Natividad Loaiza : 1965 Visit/Account:[id number] Date of Sevice: 04/17/2018 RIGHT UPPER EXTREMITY VENOUS DOPPLER DUPLEX ULTRASOUND SCAN. HISTORY: Right arm swelling starting in 04/08/2018. A venous color flow Doppler duplex ultrasound scan with spectral analysis was performed on the right upper extremity. An IV is present in the right antecubital fossa. The basilic vein, brachial veins, cephalic vein, axillary vein and internal jugular vein are otherwise unremarkable. The lateral aspec t of the subclavian vein is unremarkable. The medial aspect of the subclavian vein, the innominate v ein, and the superior vena cava are obscured. Note that Doppler ultrasound is insensitive for evaluating the central veins of the chest. IMPRESSION: Negative for right upper extremity deep vein thrombosis. RIGHT LOWER EXTREMITY VENOUS DOPPLER DUPLEX ULTRASOUND SCAN. HISTORY: Right knee soreness. COMPARISON: None. A color flow Doppler duplex ultrasound examination with spectral analysis was performed on the lower extremity. The common femoral vein, superficial femoral vein, and popliteal vein are normal. These ve ssels compress and augment normally. The upper portions of the trifurcation veins are unremarkable. P ortions of the deep veins of the calf are obscured. No intraluminal filling defects are identified to suggest acute thrombus in the deep venous system. No abnormal fluid collections. Edema is present in the soft tissues throughout the right lower extrem ity. A venous reflux study was not performed at this time. Note that Doppler ultrasound is somewhat insensitive below the knee. IMPRESSION: Right lower extremity soft tissue edema. Otherwise negative for acute deep vein thrombosis. Report Dictated By: Fareed Osullivan MD at 04/17/2018 11:59 AM Report E-Signed By: Fareed Osullivan MD at 04/17/2018 12:05 PM WSN:[id number]
--- NOTE | 2018-04-17 12:09 | RADIOLOGY IMAGING REPORT ---
FACILITY: [facility] - [place] PATIENT NAME: Natividad Loaiza : 1965 MR: [id number] V: [id number] EXAM DATE: ORDERING PHYSICIAN: KERI CLARKE TECHNOLOGIST: Location: [facility] Patient: Natividad Loaiza : 1965 Visit/Account:[id number] Date of Sevice: 04/17/2018 RIGHT UPPER EXTREMITY VENOUS DOPPLER DUPLEX ULTRASOUND SCAN. HISTORY: Right arm swelling starting in 04/08/2018. A venous color flow Doppler duplex ultrasound scan with spectral analysis was performed on the right upper extremity. An IV is present in the right antecubital fossa. The basilic vein, brachial veins, cephalic vein, axillary vein and internal jugular vein are otherwise unremarkable. The lateral aspec t of the subclavian vein is unremarkable. The medial aspect of the subclavian vein, the innominate v ein, and the superior vena cava are obscured. Note that Doppler ultrasound is insensitive for evaluating the central veins of the chest. IMPRESSION: Negative for right upper extremity deep vein thrombosis. RIGHT LOWER EXTREMITY VENOUS DOPPLER DUPLEX ULTRASOUND SCAN. HISTORY: Right knee soreness. COMPARISON: None. A color flow Doppler duplex ultrasound examination with spectral analysis was performed on the lower extremity. The common femoral vein, superficial femoral vein, and popliteal vein are normal. These ve ssels compress and augment normally. The upper portions of the trifurcation veins are unremarkable. P ortions of the deep veins of the calf are obscured. No intraluminal filling defects are identified to suggest acute thrombus in the deep venous system. No abnormal fluid collections. Edema is present in the soft tissues throughout the right lower extrem ity. A venous reflux study was not performed at this time. Note that Doppler ultrasound is somewhat insensitive below the knee. IMPRESSION: Right lower extremity soft tissue edema. Otherwise negative for acute deep vein thrombosis. Report Dictated By: Fareed Osullivan MD at 04/17/2018 11:59 AM Report E-Signed By: Fareed Osullivan MD at 04/17/2018 12:05 PM WSN:[id number]
== END 2018-04-17 12:06 | disposition home or self-care (01) ==
LOC: ER 09:45
DX: R60.0 Localized edema (principal); R06.00 Dyspnea, unspecified
CPT/HCPCS: 71045; 81001; 82040; 82247; 82310; 82374; 82435; 82565; 82803; 82947; 83880; 84075; 84132; 84155; 84295; 84450; 84460; 84484; 84520; 85025; 93970; 99284

== ENCOUNTER 2018-04-20 09:00 | Outpatient (RCR) | payer BC, MEDICARE ==
[2015-06-25 12:47] VITALS: BMI 43.0
[2018-04-21] MEDS ORDERED: NABU-95 PO (01:42)
[2018-04-21] MEDS ORDERED: HYDR-385 PO (01:42)
[2018-04-22] MEDS ORDERED: CLIN300C99 PO (15:04)
== END 2018-04-26 ==
LOC: CARD 09:00
PROVIDERS: ATTEND Emergency Medicine
DX: J44.9 Chronic obstructive pulmonary disease, unspecified (principal)
CPT/HCPCS: G0424 ×17

== ENCOUNTER 2018-04-21 01:29 | Emergency (ER) | payer MEDICARE ==
[2018-03-25 11:42] VITALS: BMI 48.5
[2018-04-21] MEDS ORDERED: NABU-95 PO (01:42)
[2018-04-21] MEDS ORDERED: HYDR-385 PO (01:42)
--- NOTE | 2018-04-21 01:53 | ER Report ---
History and Physical Time Seen By MD: 01:53 Hx. of Stated Complaint: patient states that her right foot is swollen HPI/ROS CHIEF COMPLAINT: swelling of right lower extremity HISTORY OF PRESENT ILLNESS: This is a 52 year old female. She has been having some problems with swelling in her legs the last few days. She has been seen here in the ER several times for this. Still with swelling in right leg. She is trying to keep legs elevated. She has not been able to use her compression stockings because of how tight they are and causing pain. She has no shortness of breath. No chest pain. She continues to have knee pain. Recent evaluation shows no signs of blood clots. She thinks she might have had fever last night because she felt hot. No changes in medications. Allergies: Coded Allergies: aripiprazole (Verified Allergy, Intermediate, RASH, 04/13/18) lithium (Verified Allergy, Intermediate, RASH, 04/13/18) lurasidone (Verified Allergy, Intermediate, 04/13/18) quetiapine (Verified Allergy, Intermediate, DIZZY, 04/13/18) DIzzy varenicline (Verified Allergy, Intermediate, SWELLING, 04/13/18) ciprofloxacin (Verified Allergy, Mild, N/V, 04/13/18) sulfamethoxazole (Verified Allergy, Mild, HIVES, 04/13/18) topiramate (Verified Allergy, Mild, UPSET STOMACH, 04/13/18) Upset stomach trimethoprim (Verified Allergy, Mild, HIVES, 04/13/18) metoprolol (Unverified Allergy, Unknown, 04/13/18) dyspnea haloperidol (Verified Adverse Reaction, Severe, DYSTONIC REACTION, 04/13/18) propofol (Verified Adverse Reaction, Severe, HALLUCINATIONS, 04/13/18) PT STATES "I HEARD VOICES TELLING ME TO KILL MYSELF THE NIGHT AFTER I HAD A COLONOSCOPY" amoxicillin (Verified Adverse Reaction, Intermediate, Pruritus , 04/13/18) adhesive tape (Verified Adverse Reaction, Mild, RASH, 04/13/18) fluticasone (Verified Adverse Reaction, Mild, THRUSH, 04/13/18) salmeterol (Verified Adverse Reaction, Mild, THRUSH, 04/13/18) Home Meds Active Scripts Diltiazem Hcl (DILTIAZEM 24HR CD) 240 Mg Cap.er.24h, 240 MG PO QDAY, #90 CAP.SR.24H 3 Refills Prov:SKINNY EMMANUEL MD 04/12/18 Azithromycin (ZITHROMAX) 250 Mg Tablet, 1 TAB PO DIRECTED, #14 TAB Take three times a week on , Wednesdays and Fridays. Prov:SKINNY EMMANUEL MD 03/31/18 Ondansetron 4 Mg Odt (ONDANSETRON 4 MG ODT) 4 Mg Tab.rapdis, 4 MG PO ONCE for 5 Days, TAB Prov:YUDI VALADEZ MD 03/23/18 Tiotropium [place] (SPIRIVA) 18 Mcg/Cap Inh, 2 PUFF INH DAILY, #1 INH 11 Refills Prov:SKINNY EMMANUEL MD 05/14/17 Reported Medications Nabumetone (NABUMETONE) 750 Mg Tablet, 750 MG PO BID 04/21/18 Hydrocodone Bit/Acetaminophen (HYDROCODON-ACETAMINOPHEN 5-325) 1 Each Tablet, 1 EACH PO Q6H, TAB 04/21/18 Oxygen (OXYGEN) Inha, 2 L INH QDAY, L 01/09/18 Budesonide/Formoterol Fumarate (SYMBICORT 80-4.5 MCG INHALER) 10.2 Gm Hfa.aer.ad, 10.2 GM IH BID 12/07/17 Bupropion Hcl (WELLBUTRIN SR) 150 Mg Tablet.er, 150 MG PO QDAY, TAB 11/11/17 Escitalopram Oxalate (ESCITALOPRAM OXALATE) 20 Mg Tablet, 20 MG PO QDAY 11/11/17 Pramipexole Di-Hcl (MIRAPEX) 1 Mg Tablet, 1 MG PO DAILY 11/11/17 Famotidine (FAMOTIDINE) 20 Mg Tablet, 20 MG PO QDAY, TAB 11/11/17 Cholecalciferol (Vitamin D3) (VITAMIN D3) 1,000 Unit Tablet, 1000 UNIT PO QDAY, TAB 06/20/17 Ibuprofen (IBUPROFEN) 200 Mg Tablet, 2 TAB PO Q8H PRN for PAIN, TAB (MOTRIN): TAKE 400 MG EVERY 8 HRS NEEDED FOR PAIN. 02/03/17 Hydroxyzine Pamoate (HYDROXYZINE PAMOATE) 25 Mg Capsule, 25 TAB PO Q8H PRN for ANXIETY/INSOMNIA 01/27/17 Albuterol Sulfate 90 Mcg/Act (PROAIR HFA 90 MCG/ACT) 8.5 Gm Hfa.aer.ad, 2 PUFF IH Q4-6H PRN for DYSPNEA, INHALER 01/27/17 Multivitamin (MULTIVITAMINS) 1 Each Capsule, 1 EACH PO DAILY, CAPSULE 12/08/16 Discontinued Reported Medications Melatonin (MELATONIN) 2.5 Mg Tab.chew, 2.5 MG PO DAILY, TAB.CHEW 11/11/17 Discontinued Scripts Prednisone (PREDNISONE) 20 Mg Tablet, 60 MG PO QDAY, #30 TAB 0 Refills Prov:GARY RODRIGUEZ MD 03/24/18 Lactulose (LACTULOSE) 20 Gm/30 Ml Soln, 20 GM PO DAILY, #500 ML Prov:SKINNY EMMANUEL MD 01/15/18 Nystatin (NYSTOP) 60 Gm Powder, 1 DONALD TP BID, #1 BOTTLE 0 Refills APPLY TO AFFECTED AREA TWICE A DAY Prov:SKINNY EMMANUEL MD 03/13/17 Reviewed Nurses Notes: Yes Hx Smoking: Yes Smoking Status: Current: Every Day Smoker, Light Tobacco Smoker Exposure to Second Hand Smoke?: Yes Hx Substance Use Disorder: No Hx Alcohol Use: No Constitutional Vital Sign - Last 24 Hours 04/21/18 04/21/18 04/21/18 04/21/18 01:33 01:34 01:59 02:00 Temp 98.1 Pulse 92 75 Resp 19 B/P (MAP) 137/104 (115) 137/104 126/72 (90) Pulse Ox 95 95 O2 Delivery Room Air 04/21/18 04/21/18 04/21/18 04/21/18 02:29 02:30 02:30 02:59 Pulse 78 72 71 B/P (MAP) 134/79 (97) 134/79 (97) Pulse Ox 94 94 97 04/21/18 04/21/18 04/21/18 04/21/18 03:00 03:00 03:30 03:35 Pulse 72 81 84 B/P (MAP) 136/73 (94) 136/73 (94) 134/76 (95) Pulse Ox 93 95 96 04/21/18 04/21/18 04/21/18 04/21/18 03:50 04:00 04:05 04:20 Pulse 82 84 82 B/P (MAP) 131/80 (97) Pulse Ox 96 96 95 O2 Delivery Nasal Cannula O2 Flow Rate 3 Physical Exam General Appearance: The patient is alert, has no immediate need for airway protection and no current signs of toxicity. Eyes: Pupils equal and round no injection. ENT: Normal oral mucosa. Moist mucous membranes. Neck: Neck is supple and non tender. Respiratory: Chest is non tender, lungs are clear to auscultation. Cardiac: regular rate and rhythm Normal peripheral pulses and capillary refill. Gastrointestinal: Abdomen is soft and non tender, no masses, bowel sounds normal. Musculoskeletal: No tenderness in the foot and leg other than the knee which has been there for several weeks and negative evaluation. Skin: Has swelling, mild redness, but no warmth. DIFFERENTIAL DIAGNOSIS: After history and physical exam differential diagnosis was considered for peripheral edema in the right lower extremity Medical Decision Making Data Points Result Diagram: 04/21/18 0214 04/21/18 0214 Laboratory Hematology Test 04/21/18 02:14 Red Blood Count 3.75 M/uL (4.17-5.56) Mean Corpuscular Volume 92.9 fL (80.0-96.0) Mean Corpuscular Hemoglobin 31.0 pg (26.0-33.0) Mean Corpuscular Hemoglobin Concent 33.4 g/dL (32.0-36.0) Red Cell Distribution Width 13.4 % (11.5-14.5) Mean Platelet Volume 9.3 fL (7.2-11.1) Neutrophils (%) (Auto) 63.6 % (39.4-72.5) Lymphocytes (%) (Auto) 22.9 % (17.6-49.6) Monocytes (%) (Auto) 10.4 % (4.1-12.4) Eosinophils (%) (Auto) 2.4 % (0.4-6.7) Basophils (%) (Auto) 0.7 % (0.3-1.4) Nucleated RBC Relative Count (auto) 0.0 /100WBC Neutrophils # (Auto) 3.0 K/uL (2.0-7.4) Lymphocytes # (Auto) 1.1 K/uL (1.3-3.6) Monocytes # (Auto) 0.5 K/uL (0.3-1.0) Eosinophils # (Auto) 0.1 K/uL (0.0-0.5) Basophils # (Auto) 0.0 K/uL (0.0-0.1) Nucleated RBC Absolute Count (auto) 0.00 K/uL Sodium Level 137 mmol/L (137-145) Potassium Level 4.1 mmol/L (3.5-5.0) Chloride Level 103 mmol/L (98-107) Carbon Dioxide Level 27 mmol/L (22-31) Blood Urea Nitrogen 19 mg/dl (7-18) Creatinine 1.20 mg/dl (0.52-1.04) Glomerular Filtration Rate Calc 46.8 Random Glucose 113 mg/dl (75-110) Calcium Level 9.6 mg/dl (8.4-10.2) Total Bilirubin 0.1 mg/dl (0.2-1.3) Aspartate Amino Transf (AST/SGOT) 20 U/L (0-35) Alanine Aminotransferase (ALT/SGPT) 31 U/L (0-56) Alkaline Phosphatase 79 U/L (0-126) Total Protein 5.9 g/dl (6.3-8.2) Albumin 3.5 g/dl (3.5-5.0) Chemistry Test 04/21/18 02:14 White Blood Count 4.7 k/uL (4.5-11.0) Red Blood Count 3.75 M/uL (4.17-5.56) Hemoglobin 11.6 g/dL (12.0-16.0) Hematocrit 34.8 % (34.0-47.0) Mean Corpuscular Volume 92.9 fL (80.0-96.0) Mean Corpuscular Hemoglobin 31.0 pg (26.0-33.0) Mean Corpuscular Hemoglobin Concent 33.4 g/dL (32.0-36.0) Red Cell Distribution Width 13.4 % (11.5-14.5) Platelet Count 194 K/uL (150-450) Mean Platelet Volume 9.3 fL (7.2-11.1) Neutrophils (%) (Auto) 63.6 % (39.4-72.5) Lymphocytes (%) (Auto) 22.9 % (17.6-49.6) Monocytes (%) (Auto) 10.4 % (4.1-12.4) Eosinophils (%) (Auto) 2.4 % (0.4-6.7) Basophils (%) (Auto) 0.7 % (0.3-1.4) Nucleated RBC Relative Count (auto) 0.0 /100WBC Neutrophils # (Auto) 3.0 K/uL (2.0-7.4) Lymphocytes # (Auto) 1.1 K/uL (1.3-3.6) Monocytes # (Auto) 0.5 K/uL (0.3-1.0) Eosinophils # (Auto) 0.1 K/uL (0.0-0.5) Basophils # (Auto) 0.0 K/uL (0.0-0.1) Nucleated RBC Absolute Count (auto) 0.00 K/uL Glomerular Filtration Rate Calc 46.8 Calcium Level 9.6 mg/dl (8.4-10.2) Total Bilirubin 0.1 mg/dl (0.2-1.3) Aspartate Amino Transf (AST/SGOT) 20 U/L (0-35) Alanine Aminotransferase (ALT/SGPT) 31 U/L (0-56) Alkaline Phosphatase 79 U/L (0-126) Total Protein 5.9 g/dl (6.3-8.2) Albumin 3.5 g/dl (3.5-5.0) EKG/Imaging Imaging US VENOUS LOWER EXT RT INDICATION: Right lower extremity swelling COMPARISON: April 17, 2018 FINDINGS: The right common femoral, greater saphenous, profunda femoral, superficial femoral, popliteal, posterior tibial and peroneal veins are normal without thrombus. Subcutaneous edema in the calf noted as before. IMPRESSION: No right lower extremity DVT or venous thrombosis. Right calf edema similar to prior. Report Dictated By: Linus Bolanos MD at 04/21/2018 3:32 AM ED Course/Re-evaluation ED Course Labs unremarkable. The foot is not warm. Negative venogram. Afebrile. We'll need to watch to make sure she is not getting cellulitis but it doesn't appear that way now. This could be from the ruptured James cyst that she had recently causing the edema. Recommended compression with an Kam wrap and continued elevation of the legs and follow up with primary care. Decision to Disposition Date: Apr 21, 2018 Decision to Disposition Time: 04:15 Depart Departure Latest Vital Signs Vital Signs Date Time Temp Pulse Resp B/P (MAP) Pulse Ox O2 Delivery O2 Flow Rate FiO2 04/21/18 04:20 82 95 Nasal Cannula 3 04/21/18 04:00 131/80 (97) 04/21/18 01:34 98.1 19 Core Temperature (Celsius): 37.23 Impression: Primary Impression: Peripheral edema Condition: Improved Disposition: HOME OR SELF-CARE Referrals: SKINNY EMMANUEL MD (PCP) Patient Instructions: Leg Edema (ED) Additional Instructions: Keep leg elevated at rest. Use the KAM wrap to help compress the leg and reduce swelling. Once swelling is lower, you can resume using your compression stockings. GARY RODRIGUEZ MD Apr 21, 2018 01:53
[2018-04-21 02:27] LABS: PLATELET COUNT, AUTOMATED 194 K/uL (150-450)
--- NOTE | 2018-04-21 03:38 | RADIOLOGY IMAGING REPORT ---
FACILITY: [facility] - [place] PATIENT NAME: Natividad Loaiza : 1965 MR: [id number] V: [id number] EXAM DATE: ORDERING PHYSICIAN: GARY RODRIGUEZ TECHNOLOGIST: [place] [facility] [place]: Natividad Loaiza : 1965 Visit/Account:[id number] Date of Sevice: 04/21/2018 VENOUS LOWER EXT RT INDICATION: Right lower extremity swelling COMPARISON: April 17, 2018 FINDINGS: The right common femoral, greater saphenous, profunda femoral, superficial femoral, popliteal, manager photo ior tibial and peroneal veins are normal without thrombus. Subcutaneous edema in the calf noted as before. IMPRESSION: No right lower extremity DVT or venous thrombosis. Right calf edema similar to prior. Report Dictated By: Linus Bolanos MD at 04/21/2018 3:32 AM Report E-Signed By: Linus Bolanos MD at 04/21/2018 3:35 AM WSN:[id number]
[2018-04-21 04:00] VITALS: BP 131/80
[2018-04-22] MEDS ORDERED: CLIN300C99 PO (15:04)
== END 2018-04-21 04:29 | disposition home or self-care (01) ==
LOC: ER 01:50
DX: R60.0 Localized edema (principal)
CPT/HCPCS: 36415; 82040; 82247; 82310; 82374; 82435; 82565; 82947; 84075; 84132; 84155; 84295; 84450; 84460; 84520; 85025; 99284

== ENCOUNTER 2018-04-23 19:49 | Emergency (ER) | payer MEDICARE, BC ==
[2018-03-25 11:42] VITALS: Wt 127.0 kg
[~2018-04-23 19:49] MED LIST changes: -FURO-45 PO
--- NOTE | 2018-04-23 19:57 | ER Report ---
History and Physical Time Seen By MD: 19:56 HPI/ROS CHIEF COMPLAINT: Abdominal pain HISTORY OF PRESENT ILLNESS: 52-year-old female presents complaining of severe acid reflux symptoms. Patient has a history of GERD. More recently she was started on clindamycin by her primary care physician for treatment of cellulitis for right posterior leg and calf swelling. Patient describes burning 7/10 pain in her lower chest and upper abdomen. She notes no alleviating or exacerbating factors. She admits she is probably taken for 5 doses of clindamycin. She is unable to relieve the symptoms with antacids. REVIEW OF SYSTEMS: Respiratory: No cough, no dyspnea. Cardiovascular: No chest pain, no palpitations. Gastrointestinal: As above Musculoskeletal: No back pain. Allergies: Coded Allergies: aripiprazole (Verified Allergy, Intermediate, RASH, 04/23/18) lithium (Verified Allergy, Intermediate, RASH, 04/23/18) lurasidone (Verified Allergy, Intermediate, 04/23/18) quetiapine (Verified Allergy, Intermediate, DIZZY, 04/23/18) DIzzy varenicline (Verified Allergy, Intermediate, SWELLING, 04/23/18) ciprofloxacin (Verified Allergy, Mild, N/V, 04/23/18) sulfamethoxazole (Verified Allergy, Mild, HIVES, 04/23/18) topiramate (Verified Allergy, Mild, UPSET STOMACH, 04/23/18) Upset stomach trimethoprim (Verified Allergy, Mild, HIVES, 04/23/18) metoprolol (Unverified Allergy, Unknown, 04/23/18) dyspnea haloperidol (Verified Adverse Reaction, Severe, DYSTONIC REACTION, 04/23/18) propofol (Verified Adverse Reaction, Severe, HALLUCINATIONS, 04/23/18) PT STATES "I HEARD VOICES TELLING ME TO KILL MYSELF THE NIGHT AFTER I HAD A COLONOSCOPY" amoxicillin (Verified Adverse Reaction, Intermediate, Pruritus , 04/23/18) adhesive tape (Verified Adverse Reaction, Mild, RASH, 04/23/18) fluticasone (Verified Adverse Reaction, Mild, THRUSH, 04/23/18) salmeterol (Verified Adverse Reaction, Mild, THRUSH, 04/23/18) Home Meds Active Scripts Clindamycin Hcl (CLINDAMYCIN HCL) 300 Mg Capsule, 300 MG PO Q6H, #40 CAPSULE Prov:SKINNY EMMANUEL MD 04/22/18 Diltiazem Hcl (DILTIAZEM 24HR CD) 240 Mg Cap.er.24h, 240 MG PO QDAY, #90 CAP.SR.24H 3 Refills Prov:SKINNY EMMANUEL MD 04/12/18 Azithromycin (ZITHROMAX) 250 Mg Tablet, 1 TAB PO DIRECTED, #14 TAB Take three times a week on , Wednesdays and Fridays. Prov:SKINNY EMMANUEL MD 03/31/18 Ondansetron 4 Mg Odt (ONDANSETRON 4 MG ODT) 4 Mg Tab.rapdis, 4 MG PO ONCE for 5 Days, TAB Prov:YUDI VALADEZ MD 03/23/18 Tiotropium [place] (SPIRIVA) 18 Mcg/Cap Inh, 2 PUFF INH DAILY, #1 INH 11 Refills Prov:SKINNY EMMANUEL MD 05/14/17 Reported Medications Nabumetone (NABUMETONE) 750 Mg Tablet, 750 MG PO BID 04/21/18 Hydrocodone Bit/Acetaminophen (HYDROCODON-ACETAMINOPHEN 5-325) 1 Each Tablet, 1 EACH PO Q6H, TAB 04/21/18 Oxygen (OXYGEN) Inha, 2 L INH QDAY, L 01/09/18 Budesonide/Formoterol Fumarate (SYMBICORT 80-4.5 MCG INHALER) 10.2 Gm Hfa.aer.ad, 10.2 GM IH BID 12/07/17 Bupropion Hcl (WELLBUTRIN SR) 150 Mg Tablet.er, 150 MG PO QDAY, TAB 11/11/17 Escitalopram Oxalate (ESCITALOPRAM OXALATE) 20 Mg Tablet, 20 MG PO QDAY 11/11/17 Pramipexole Di-Hcl (MIRAPEX) 1 Mg Tablet, 1 MG PO DAILY 11/11/17 Famotidine (FAMOTIDINE) 20 Mg Tablet, 20 MG PO QDAY, TAB 11/11/17 Cholecalciferol (Vitamin D3) (VITAMIN D3) 1,000 Unit Tablet, 1000 UNIT PO QDAY, TAB 06/20/17 Ibuprofen (IBUPROFEN) 200 Mg Tablet, 2 TAB PO Q8H PRN for PAIN, TAB (MOTRIN): TAKE 400 MG EVERY 8 HRS NEEDED FOR PAIN. 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, nutrition helper) sleep apnea (Uses BIPAP, since 04/2015) other respiratory history (Chronic repiratory failure with hypoxia) Gastrointestinal: Reports hx of: GERD Psychiatric: Reports hx of: depression psych hospitalization suicide attempt(s) (4 attempts, last attempt 01/26/17) other psychiatric history (somatic symptom disorder) Endocrine: Reports hx of: hypothyroidism Past Surgical History HEENT: Reports hx of: tonsillectomy (06/19) Gastrointestinal: Reports hx of: cholecystectomy (12/18/2015) Family History Reviewed Nurses Notes: Yes Old Medical Records Reviewed: Yes Hx Smoking: Yes Smoking Status: Current: Every Day Smoker, Light Tobacco Smoker Exposure to Second Hand Smoke?: Yes Hx Substance Use Disorder: No Hx Alcohol Use: No Constitutional Vital Sign - Last 24 Hours 04/23/18 04/23/18 04/23/18 04/23/18 19:49 19:54 19:54 20:00 Temp 98.6 Pulse ??? 95 Resp 20 B/P (MAP) 139/87 139/87 (104) 139/86 (103) Pulse Ox 91 O2 Delivery Nasal Cannula 04/23/18 04/23/18 04/23/18 04/23/18 20:04 20:19 20:30 20:34 Pulse 79 77 75 B/P (MAP) 148/86 (106) Pulse Ox 94 92 92 Physical Exam General Appearance: The patient is alert, has no immediate need for airway protection and no current signs of toxicity. Vital signs stable, afebrile, pulse ox normal HEENT: Pupils equal and round no injection. TMs normal, oropharynx without redness or exudate, mucous membranes are moist Respiratory: Chest is non tender, lungs are clear to auscultation. Cardiac: regular rate and rhythm Gastrointestinal: Abdomen is soft and non tender, no masses, bowel sounds normal. Musculoskeletal: Neck: Neck is supple and non tender. No lymphadenopathy Extremities have full range of motion and are non tender. Skin: No rashes or lesions. DIFFERENTIAL DIAGNOSIS: After history and physical exam differential diagnosis was considered for abdominal pain including but not limited to appendicitis, cholecystitis, gastritis, GERD, gastritis, esophageal pill ulcer and urinary tract infection. Medical Decision Making ED Course/Re-evaluation ED Course Patient was admitted to an examination room. H&P was done. The differential diagnoses was considered. Patient with a severe heartburn. She is treated with a GI cocktail. Her pain resolves. She is advised to take Prilosec and d iscontinue the clindamycin follow-up with her primary physician on Thursday. Decision to Disposition Date: Apr 23, 2018 Decision to Disposition Time: 20:31 Depart Departure Latest Vital Signs Vital Signs Date Time Temp Pulse Resp B/P (MAP) Pulse Ox O2 Delivery O2 Flow Rate FiO2 04/23/18 20:34 75 92 04/23/18 20:30 148/86 (106) 04/23/18 19:54 98.6 20 Nasal Cannula Core Temperature (Celsius): 37.23 Impression: Primary Impression: GERD (gastroesophageal reflux disease) Additional Impression: Clindamycin adverse reaction Condition: Improved Disposition: HOME OR SELF-CARE Referrals: SKINNY EMMANUEL MD (PCP) Patient Instructions: Gastroesophageal Reflux Disease (ED) Additional Instructions: Take Prilosec 20 mg per day for the next week Take all clindamycin with a full glass of water After 30 minutes, you may take some antiacid Follow-up with your primary care if unimproved in 3-5 days Problem Qualifiers Primary Impression: GERD (gastroesophageal reflux disease) Esophagitis presence: esophagitis presence not specified Qualified Codes: K21.9 - Gastro-esophageal reflux disease without esophagitis Additional Impression: Clindamycin adverse reaction Encounter type: initial encounter Qualified Codes: T36.8X5A - Adverse effect of other systemic antibiotics, initial encounter DENIA PUGA DO Apr 23, 2018 19:57
[2018-04-23] MEDS ORDERED: LIDOCAINE 2% VISC SLN 15ML UDC PO ONE (20:05)
[2018-04-23] MEDS ORDERED: MAG HYD/AL HYD/SIMETH 30ML UDC PO ONE (20:05)
[2018-04-23 20:30] VITALS: BP 148/86
== END 2018-04-23 20:37 | disposition home or self-care (01) ==
LOC: ER 19:58
DX: K21.9 Gastro-esophageal reflux disease without esophagitis (principal); T36.8X5A Adverse effect of other systemic antibiotics, initial encounter
CPT/HCPCS: 99283; A9270

== ENCOUNTER → 2018-04-23 | Outpatient (CLI) | payer MEDICARE ==
[2018-03-25 11:42] VITALS: BMI 48.5
[~2018-04-23] MED LIST changes: +FURO-45 PO; +NABU-95 PO
== END ==
LOC: AMB 23:38
PROVIDERS: ATTEND Nurse Practitioner
DX: F41.9 Anxiety disorder, unspecified (principal); R45.851 Suicidal ideations; R10.9 Unspecified abdominal pain; F32.9 Major depressive disorder, single episode, unspecified; R53.1 Weakness
CPT/HCPCS: A0425; A0429

== ENCOUNTER 2018-04-24 | Emergency (ER) | payer MEDICARE, BC ==
[2018-03-25 11:42] VITALS: Wt 127.0 kg
[2018-04-24 00:04] VITALS: BP 156/87
[2018-04-24 00:58] LABS: PLATELET COUNT, AUTOMATED 240 K/uL (150-450)
--- NOTE | 2018-04-24 01:22 | ER Report ---
History and Physical Time Seen By MD: 00:04 Hx. of Stated Complaint: PATIENT WAS SEEN EARLIER TONIGHT FOR HEARTBURN, PATIENT WENT HOME TOOK THE MEDS THAT SHE WAS INSTRUCTED TO TAKE. WOKE UP AROUND 233, PAIN WAS WORSE AND PATIENT BECAME WORRIED THAT SHE MIGHT OVERDOSE ON MEDICATION TRYING TO RELIEVE HER PAIN, [facility] DID NOT FEEL SAFE AT HOME AND WOULD LIKE TO BE ADMITTED TO [facility]. HPI/ROS CHIEF COMPLAINT: Severe heartburn, safety concerns HISTORY OF PRESENT ILLNESS: 52-year-old female with a history of COPD, GERD. Patient was seen 4 hours earlier in the ER with severe heartburn. She was seen by primary care 24 hours ago with posterior calf swelling thought to be cellulitis. Patient was started on clindamycin for possible cellulitis. She's taken maybe 4-5 doses over the last 24 hours. She notes severe GERD symptoms. She was seen in the ER for hours ago and treated with a GI cocktail. Her pain resolved. She was advised to take Prilosec and stop the clindamycin. Patient's concerned that she may take too many of her pain pills to control the symptoms. REVIEW OF SYSTEMS: Respiratory: No cough, no dyspnea. Cardiovascular: No chest pain, no palpitations. Gastrointestinal: As above Musculoskeletal: No back pain. Allergies: Coded Allergies: aripiprazole (Verified Allergy, Intermediate, RASH, 04/23/18) lithium (Verified Allergy, Intermediate, RASH, 04/23/18) lurasidone (Verified Allergy, Intermediate, 04/23/18) quetiapine (Verified Allergy, Intermediate, DIZZY, 04/23/18) DIzzy varenicline (Verified Allergy, Intermediate, SWELLING, 04/23/18) ciprofloxacin (Verified Allergy, Mild, N/V, 04/23/18) sulfamethoxazole (Verified Allergy, Mild, HIVES, 04/23/18) topiramate (Verified Allergy, Mild, UPSET STOMACH, 04/23/18) Upset stomach trimethoprim (Verified Allergy, Mild, HIVES, 04/23/18) metoprolol (Unverified Allergy, Unknown, 04/23/18) dyspnea haloperidol (Verified Adverse Reaction, Severe, DYSTONIC REACTION, 04/23/18) propofol (Verified Adverse Reaction, Severe, HALLUCINATIONS, 04/23/18) PT STATES "I HEARD VOICES TELLING ME TO KILL MYSELF THE NIGHT AFTER I HAD A COLONOSCOPY" amoxicillin (Verified Adverse Reaction, Intermediate, Pruritus , 04/23/18) adhesive tape (Verified Adverse Reaction, Mild, RASH, 04/23/18) fluticasone (Verified Adverse Reaction, Mild, THRUSH, 04/23/18) salmeterol (Verified Adverse Reaction, Mild, THRUSH, 04/23/18) Home Meds Active Scripts Clindamycin Hcl (CLINDAMYCIN HCL) 300 Mg Capsule, 300 MG PO Q6H, #40 CAPSULE Prov:SKINNY EMMANUEL MD 04/22/18 Diltiazem Hcl (DILTIAZEM 24HR CD) 240 Mg Cap.er.24h, 240 MG PO QDAY, #90 CAP.SR.24H 3 Refills Prov:SKINNY EMMANUEL MD 04/12/18 Azithromycin (ZITHROMAX) 250 Mg Tablet, 1 TAB PO DIRECTED, #14 TAB Take three times a week on , Wednesdays and Fridays. Prov:SKINNY EMMANUEL MD 03/31/18 Ondansetron 4 Mg Odt (ONDANSETRON 4 MG ODT) 4 Mg Tab.rapdis, 4 MG PO ONCE for 5 Days, TAB Prov:YUDI VALADEZ MD 03/23/18 Tiotropium [place] (SPIRIVA) 18 Mcg/Cap Inh, 2 PUFF INH DAILY, #1 INH 11 Refills Prov:SKINNY EMMANUEL MD 05/14/17 Reported Medications Nabumetone (NABUMETONE) 750 Mg Tablet, 750 MG PO BID 04/21/18 Hydrocodone Bit/Acetaminophen (HYDROCODON-ACETAMINOPHEN 5-325) 1 Each Tablet, 1 EACH PO Q6H, TAB 04/21/18 Oxygen (OXYGEN) Inha, 2 L INH QDAY, L 01/09/18 Budesonide/Formoterol Fumarate (SYMBICORT 80-4.5 MCG INHALER) 10.2 Gm Hfa.aer.ad, 10.2 GM IH BID 12/07/17 Bupropion Hcl (WELLBUTRIN SR) 150 Mg Tablet.er, 150 MG PO QDAY, TAB 11/11/17 Escitalopram Oxalate (ESCITALOPRAM OXALATE) 20 Mg Tablet, 20 MG PO QDAY 11/11/17 Pramipexole Di-Hcl (MIRAPEX) 1 Mg Tablet, 1 MG PO DAILY 11/11/17 Famotidine (FAMOTIDINE) 20 Mg Tablet, 20 MG PO QDAY, TAB 11/11/17 Cholecalciferol (Vitamin D3) (VITAMIN D3) 1,000 Unit Tablet, 1000 UNIT PO QDAY, TAB 06/20/17 Ibuprofen (IBUPROFEN) 200 Mg Tablet, 2 TAB PO Q8H PRN for PAIN, TAB (MOTRIN): TAKE 400 MG EVERY 8 HRS NEEDED FOR PAIN. 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) sleep apnea (Uses BIPAP, since 04/2015) other respiratory history (Chronic repiratory failure with hypoxia) Gastrointestinal: Reports hx of: GERD Psychiatric: Reports hx of: depression psych hospitalization suicide attempt(s) (4 attempts, last attempt 01/26/17) other psychiatric history (somatic symptom disorder) Endocrine: Reports hx of: hypothyroidism Past Surgical History HEENT: Reports hx of: tonsillectomy (06/19) Hand Surgery 1979 Gastrointestinal: Reports hx of: cholecystectomy (12/18/2015) Hand Surgery 1979 Hx Smoking: Yes Smoking Status: Current: Every Day Smoker, Light Tobacco Smoker Exposure to Second Hand Smoke?: Yes Hx Substance Use Disorder: No Hx Alcohol Use: No Constitutional Vital Sign - Last 24 Hours 04/24/18 00:04 Temp 98.3 Pulse 81 Resp 24 B/P (MAP) 156/87 Pulse Ox 94 Physical Exam General Appearance: The patient is alert, has no immediate need for airway pro tection and no current signs of toxicity. Vital signs stable, afebrile, pulse ox normal Eyes: Pupils equal and round no injection. Respiratory: Chest is non tender, lungs are clear to auscultation. Cardiac: regular rate and rhythm Gastrointestinal: Abdomen is soft and non tender, no masses, bowel sounds normal. Musculoskeletal: Neck: Neck is supple and non tender. Extremities have full range of motion and are non tender. Skin: No rashes or lesions. DIFFERENTIAL DIAGNOSIS: After history and physical exam differential diagnosis was considered for GERD, acid reflux, pill ulcer, esophagitis, poor impulse control, Medical Decision Making Data Points Result Diagram: 04/24/18 0024 04/24/18 0024 Laboratory Hematology Test 04/24/18 00:17 04/24/18 00:24 Urine Color Yellow Urine Clarity Slightly-cloudy Urine pH 6.0 pH (4.8-9.5) Urine Specific Boring 1.010 Urine Protein Negative mg/dL (NEGATIVE) Urine Glucose (UA) Negative mg/dL (NEGATIVE) Urine Ketones Negative mg/dL (NEGATIVE) Urine Blood Negative (NEGATIVE) Urine Nitrite Negative (NEGATIVE) Urine Bilirubin Negative (NEGATIVE) Urine Urobilinogen Negative mg/dL (0.2-1.9) Urine Leukocyte Esterase Negative (NEGATIVE) Urine RBC <1 /HPF (0-2/HPF) Urine WBC 4 /HPF (0-5/HPF) Urine Squamous Epithelial Cells Many /LPF (</=FEW) Urine Transitional Epithelial Cells Few /LPF (NONE-FEW) Urine Bacteria Few /HPF (NONE-FEW) Urine Hyaline Casts Few /LPF (NONE-FEW) Urine Mucus None /HPF (NONE-FEW) Urine Opiates Screen Positive Urine Barbiturates Screen Negative Ur Tricyclic Antidepressants Screen Negative Urine Phencyclidine Screen Negative Urine Amphetamines Screen Negative Urine Benzodiazepines Screen Negative Urine Cocaine Screen Negative Urine Cannabinoids Screen Negative Red Blood Count 4.34 M/uL (4.17-5.56) Mean Corpuscular Volume 94.4 fL (80.0-96.0) Mean Corpuscular Hemoglobin 30.7 pg (26.0-33.0) Mean Corpuscular Hemoglobin Concent 32.5 g/dL (32.0-36.0) Red Cell Distribution Width 13.9 % (11.5-14.5) Mean Platelet Volume 9.0 fL (7.2-11.1) Neutrophils (%) (Auto) 69.5 % (39.4-72.5) Lymphocytes (%) (Auto) 20.0 % (17.6-49.6) Monocytes (%) (Auto) 7.6 % (4.1-12.4) Eosinophils (%) (Auto) 2.5 % (0.4-6.7) Basophils (%) (Auto) 0.4 % (0.3-1.4) Nucleated RBC Relative Count (auto) 0.0 /100WBC Neutrophils # (Auto) 4.6 K/uL (2.0-7.4) Lymphocytes # (Auto) 1.3 K/uL (1.3-3.6) Monocytes # (Auto) 0.5 K/uL (0.3-1.0) Eosinophils # (Auto) 0.2 K/uL (0.0-0.5) Basophils # (Auto) 0.0 K/uL (0.0-0.1) Nucleated RBC Absolute Count (auto) 0.00 K/uL Sodium Level 139 mmol/L (137-145) Potassium Level 4.3 mmol/L (3.5-5.0) Chloride Level 99 mmol/L (98-107) Carbon Dioxide Level 33 mmol/L (22-31) Blood Urea Nitrogen 15 mg/dl (7-18) Creatinine 1.20 mg/dl (0.52-1.04) Glomerular Filtration Rate Calc 46.8 Random Glucose 108 mg/dl (75-110) Calcium Level 10.6 mg/dl (8.4-10.2) Magnesium Level 2.0 mg/dl (1.7-2.2) Total Bilirubin 0.2 mg/dl (0.2-1.3) Aspartate Amino Transf (AST/SGOT) 22 U/L (0-35) Alanine Aminotransferase (ALT/SGPT) 40 U/L (0-56) Alkaline Phosphatase 98 U/L (0-126) Total Protein 6.7 g/dl (6.3-8.2) Albumin 4.1 g/dl (3.5-5.0) Salicylates Level < 10 mg/L Salicylate Last Dose Date unk Acetaminophen Level < 10 ug/ml Serum Alcohol < 10 mg/dl Chemistry Test 04/24/18 00:17 04/24/18 00:24 Urine Color Yellow Urine Clarity Slightly-cloudy Urine pH 6.0 pH (4.8-9.5) Urine Specific Boring 1.010 Urine Protein Negative mg/dL (NEGATIVE) Urine Glucose (UA) Negative mg/dL (NEGATIVE) Urine Ketones Negative mg/dL (NEGATIVE) Urine Blood Negative (NEGATIVE) Urine Nitrite Negative (NEGATIVE) Urine Bilirubin Negative (NEGATIVE) Urine Urobilinogen Negative mg/dL (0.2-1.9) Urine Leukocyte Esterase Negative (NEGATIVE) Urine RBC <1 /HPF (0-2/HPF) Urine WBC 4 /HPF (0-5/HPF) Urine Squamous Epithelial Cells Many /LPF (</=FEW) Urine Transitional Epithelial Cells Few /LPF (NONE-FEW) Urine Bacteria Few /HPF (NONE-FEW) Urine Hyaline Casts Few /LPF (NONE-FEW) Urine Mucus None /HPF (NONE-FEW) Urine Opiates Screen Positive Urine Barbiturates Screen Negative Ur Tricyclic Antidepressants Screen Negative Urine Phencyclidine Screen Negative Urine Amphetamines Screen Negative Urine Benzodiazepines Screen Negative Urine Cocaine Screen Negative Urine Cannabinoids Screen Negative White Blood Count 6.6 k/uL (4.5-11.0) Red Blood Count 4.34 M/uL (4.17-5.56) Hemoglobin 13.3 g/dL (12.0-16.0) Hematocrit 41.0 % (34.0-47.0) Mean Corpuscular Volume 94.4 fL (80.0-96.0) Mean Corpuscular Hemoglobin 30.7 pg (26.0-33.0) Mean Corpuscular Hemoglobin Concent 32.5 g/dL (32.0-36.0) Red Cell Distribution Width 13.9 % (11.5-14.5) Platelet Count 240 K/uL (150-450) Mean Platelet Volume 9.0 fL (7.2-11.1) Neutrophils (%) (Auto) 69.5 % (39.4-72.5) Lymphocytes (%) (Auto) 20.0 % (17.6-49.6) Monocytes (%) (Auto) 7.6 % (4.1-12.4) Eosinophils (%) (Auto) 2.5 % (0.4-6.7) Basophils (%) (Auto) 0.4 % (0.3-1.4) Nucleated RBC Relative Count (auto) 0.0 /100WBC Neutrophils # (Auto) 4.6 K/uL (2.0-7.4) Lymphocytes # (Auto) 1.3 K/uL (1.3-3.6) Monocytes # (Auto) 0.5 K/uL (0.3-1.0) Eosinophils # (Auto) 0.2 K/uL (0.0-0.5) Basophils # (Auto) 0.0 K/uL (0.0-0.1) Nucleated RBC Absolute Count (auto) 0.00 K/uL Glomerular Filtration Rate Calc 46.8 Calcium Level 10.6 mg/dl (8.4-10.2) Magnesium Level 2.0 mg/dl (1.7-2.2) Total Bilirubin 0.2 mg/dl (0.2-1.3) Aspartate Amino Transf (AST/SGOT) 22 U/L (0-35) Alanine Aminotransferase (ALT/SGPT) 40 U/L (0-56) Alkaline Phosphatase 98 U/L (0-126) Total Protein 6.7 g/dl (6.3-8.2) Albumin 4.1 g/dl (3.5-5.0) Salicylates Level < 10 mg/L Salicylate Last Dose Date unk Acetaminophen Level < 10 ug/ml Serum Alcohol < 10 mg/dl Toxicology Test 04/24/18 00:17 04/24/18 00:24 Urine Opiates Screen Positive Urine Barbiturates Screen Negative Ur Tricyclic Antidepressants Screen Negative Urine Phencyclidine Screen Negative Urine Amphetamines Screen Negative Urine Benzodiazepines Screen Negative Urine Cocaine Screen Negative Urine Cannabinoids Screen Negative Salicylates Level < 10 mg/L Salicylate Last Dose Date unk Acetaminophen Level < 10 ug/ml Serum Alcohol < 10 mg/dl Urinalysis Test 04/24/18 00:17 Urine Color Yellow Urine Clarity Slightly-cloudy Urine pH 6.0 pH (4.8-9.5) Urine Specific Boring 1.010 Urine Protein Negative mg/dL (NEGATIVE) Urine Glucose (UA) Negative mg/dL (NEGATIVE) Urine Ketones Negative mg/dL (NEGATIVE) Urine Blood Negative (NEGATIVE) Urine Nitrite Negative (NEGATIVE) Urine Bilirubin Negative (NEGATIVE) Urine Urobilinogen Negative mg/dL (0.2-1.9) Urine Leukocyte Esterase Negative (NEGATIVE) Urine RBC <1 /HPF (0-2/HPF) Urine WBC 4 /HPF (0-5/HPF) Urine Squamous Epithelial Cells Many /LPF (</=FEW) Urine Transitional Epithelial Cells Few /LPF (NONE-FEW) Urine Bacteria Few /HPF (NONE-FEW) Urine Hyaline Casts Few /LPF (NONE-FEW) Urine Mucus None /HPF (NONE-FEW) ED Course/Re-evaluation ED Course Patient was admitted to an examination room by EMS. H&P was done. The differential diagnoses was considered. On clinical examination. Patient expressing concerns for safety at phrasing she might overdose on her pain pills. She called in and talk to the crisis line. They advised her to come in. She called 911 for ambulance to bring her in for evaluation. Patient denies suicidal ideation or other mental health problems. But she is concerned with severe esophageal pain. She's having from taking clindamycin. She will take too many of her pain pills. She would like to be admitted to [facility]. Decision to Disposition Date: Apr 24, 2018 Decision to Disposition Time: 01:19 Depart Departure Latest Vital Signs Vital Signs Date Time Temp Pulse Resp B/P (MAP) Pulse Ox O2 Delivery O2 Flow Rate FiO2 04/24/18 00:04 98.3 81 24 156/87 94 Core Temperature (Celsius): 37.23 Impression: Primary Impression: GERD (gastroesophageal reflux disease) Additional Impressions: Peripheral edema Right knee sprain Somatic symptom disorder Condition: Improved Disposition[facility] Referrals: SKINNY EMMANUEL MD (PCP) Problem Qualifiers Primary Impression: GERD (gastroesophageal reflux disease) Esophagitis presence: esophagitis presence not specified Qualified Codes: K21.9 - Gastro-esophageal reflux disease without esophagitis Additional Impressions: Right knee sprain Encounter type: subsequent encounter Involved ligament of knee: unspecified ligament Qualified Codes: S83.91XD - Sprain of unspecified site of right knee, subsequent encounter DENIA PUGA DO Apr 24, 2018 01:22
== END 2018-04-24 02:10 ==
LOC: ER 00:07
DX: K21.9 Gastro-esophageal reflux disease without esophagitis (principal); S83.91XA Sprain of unspecified site of right knee, initial encounter; R60.0 Localized edema; F45.1 Undifferentiated somatoform disorder
CPT/HCPCS: 36415; 80305; 81001; 83735; 84443; 85025; 99284; G0480; 80320; 80329; 82040; 82247; 82310; 82374; 82435; 82565; 82947; 84075; 84132; 84155; 84295; 84450; 84460; 84520

== ENCOUNTER 2018-04-24 01:44 | Inpatient (IN) | payer MEDICARE, BC ==
[2018-03-25 11:42] VITALS: Ht 129.5 cm; Wt 127.0 kg
[~2018-04-24] VITALS: Ht 129.5 cm; Wt 127.0 kg
[2018-04-24 03:50] VITALS: BP 136/66
[2018-04-24] MEDS ORDERED: ACETAMINOPHEN 325 MG TAB PO PRN (04:00)
[2018-04-24] MEDS ORDERED: MAG HYD/AL HYD/SIMETH 30ML UDC PO PRN (04:00)
[2018-04-24] MEDS: MULTIVITAMINS TAB PO SCH (08:06)
[2018-04-24] MEDS ORDERED: ALBUTEROL 8 GM INHALER INH PRN (11:15)
[2018-04-24] MEDS ORDERED: IBUPROFEN 200 MG TAB PO PRN (11:15)
[2018-04-24] MEDS ORDERED: hydrOXYzine PAMOATE 25 MG CAP PO PRN (11:15)
[2018-04-24] MEDS ORDERED: MULTIVITAMINS TAB PO SCH (11:15)
--- NOTE | 2018-04-24 12:08 | EKG ---
FACILITY: [facility] PATIENT NAME: FLORENCIO CRUZ : [id number] MR: [id number] V: [id number] EXAM DATE: ORDERING PHYSICIAN: MIMI CORNELIUS TECHNOLOGIST: Test Reason : Blood Pressure : / mmHG Vent. Rate : 060 BPM Atrial Rate : 060 BPM P-R Int : 134 ms QRS Dur : 078 ms QT Int : 432 ms P-R-T Axes : 076 078 079 degrees QTc Int : 432 ms Normal sinus rhythm Normal ECG When compared with ECG of 31-MAR-2018 10:08, No significant change was found Confirmed by TIFFANIE MASSEY ([id number]) on 04/24/2018 1:30:41 PM Referred By: Confirmed By:TIFFANIE MASSEY
[2018-04-24] MEDS: buPROPion SR 150 MG TABCR PO SCH (12:12)
[2018-04-24] MEDS: ESCITALOPRAM OXALATE 10 MG TAB PO SCH (12:12)
[2018-04-24] MEDS: DILTIAZEM CD 120 MG CAPCR PO SCH (12:12)
[2018-04-24] MEDS: CHOLECALCIFEROL 1000 UNIT TAB PO SCH (12:12)
[2018-04-24] MEDS: FAMOTIDINE 20 MG TAB PO SCH (12:13)
[2018-04-24] MEDS: CLINDAMYCIN 150 MG CAP PO SCH ×3 (12:15→21:16)
[2018-04-24] MEDS ORDERED: PRAMIPEXOLE DIHYDROCHL 0.25 MG PO SCH (12:30)
[2018-04-24] MEDS: TIOTROPIUM BROM INH 18 MCG/CAP INH SCH (12:30)
[2018-04-24] MEDS: BUDESO/FORMOT 80/4.5 MCG 6.9GM INH SCH ×2 (12:30→17:00)
--- NOTE | 2018-04-24 13:13 | HISTORY AND PHYSICAL ---
ATTENDING PROVIDER Harriett Garza, Psychiatric Mental Health Nurse Practitioner DATE OF ADMISSION: April 24, 2018 PRESENTING PROBLEM, CHIEF COMPLAINT "I was so tired and in so much pain that I thought I would do something stupid and take too much pain medication." HISTORY OF PRESENT ILLNESS This patient is a 52-year-old single, female that presented to the emergency department where she had been seen earlier in the night for heartburn related symptoms. The patient went home, took the medications that she was instructed to take and woke up about 2:30 reporting was worse and she worried she might overdose on pain medications trying to relieve her pain. The patient reported that she did not feel safe at home and would like to be admitted to Behavioral Health Unit. The patient with a history of multiple previous inpatient psychiatric admissions with the last being in July,. Following that discharge, she did go to the [facility] in [place], [place] for four months and was released in November,. Since that time, she has been seen at [facility] and is hopeful to move into [facility] by May 07, 2018. The patient reports that she injured her right leg after she stepped wrong on it and she has had workups including MRI, ultrasound, and x-rays. She was started on an anti-inflammatory and also referred to an orthopedist which she reports she was prescribed anti-inflammatories which are ineffective. The patient has been taking Wellbutrin 150 mg p.o. q a.m. as well as Escitalopram 20 mg 1 p.o. q a.m. with reported benefit. Although the patient reports with her right leg injury, she has not been sleeping the last two weeks. She sleeps up to 6 hours. She reports compliance with her BiPAP. She is currently rating her depression a 4 out of a 10 with 10 being the worst. She denies anxiety, denies anger or mood swings. She denies symptoms of ashlee or psychosis. She was rating her right leg pain an 8 out of a 10. She reports decreased energy level and appetite. She is wearing O2 continuously at 2 liters per minute. Her last suicidal ideation she reports was one month ago. She did not feel safe leaving last night due to feeling that she may overdose on her medications for her pain control and was subsequently transferred to the Behavioral Health Unit for further evaluation and treatment. 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 The patient was agreeable to a voluntary admission to Behavioral Health Unit. MENTAL HEALTH HISTORY The patient has a history of multiple previous inpatient psychiatric admissions at [facility], the last being in July, at which time she reports she was transferred to [facility] in [place], [place] for the next four months where she was released in November,. She has been following medication providers and individual psychotherapist at [facility]. Most recent therapist is Jaylin who she has established care with and she is uncertain of her current medication provider is at [facility], although reports benefit from taking Bupropion and Escitalopram, denies side effects. Previously seen by Ghislaine Puga for psychiatric medication management. She also sees Dr. Trevino for medical issues. She has been on multiple psychotropics in the past including, Depakote, although has significant obesity and currently not taking this medication. The patient does report a history of "up to seven" previous suicide attempts all by overdosing. History of intubation although denies this was secondary to overdose or taking more than prescribed amounts of medications. FAMILY PSYCHIATRIC HISTORY A brother with significant autism spectrum disorder. Both parents suffered from alcohol use disorder, both now . PAST MEDICAL HISTORY Significant for COPD, obesity, obstructive sleep apnea now compliant with her BiPAP. 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 The patient has reported multiple medical complaints over the past few years consistent with somatic symptom disorder, requiring hospitalizations. She reports she stepped wrong on her right foot approximately one month ago with resulting pain related issues interfering with her mood and sleep. She reports she has had MRI, ultrasounds and x-rays of the right leg and was started on anti-inflammatories by an orthopedist which she reports is ineffective. SOCIAL HISTORY The patient was born in [place], [place] and raised there. Her parents were at the time of her , they remain , although now both . She has never been in the . She has never , has no children, no significant other. She has one full biological brother, one half brother and one full biological sister who lives in [place], [place]. She reports a good relationship at times with her siblings. 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 The patient now unable to work. She receives Social Security disability in the amount of approximately $1300 per month. She is awaiting placement at [facility], currently living in her own trailer independently. She graduated from high school in [place], [place], attended college for one year in [place], [place]. She denies history of physical, emotional or sexual abuse while growing up. LEGAL HISTORY None. SUBSTANCE ABUSE HISTORY The patient denies history of alcohol or illicit drug use. She does smoke cigarettes 4 per day and has smoked cannabis in the past. PHYSICAL EXAMINATION Please see emergency room note for physical exam. Vital signs at the time of admission included a temperature of 98.3, pulse 81, respiratory rate 24, blood pressure 156/87 and pulse oximetry 94% on room air. LABORATORY DATA Including CBC within normal limits. Chemistry panel within normal limits with the exception of calcium slightly elevated 10.6, creatinine 1.2, CO2 33, thyroid stimulating hormone is pending. Urine screen within normal limits with the exception of many squamous epithelial cells. Toxicology including positive for opiates of which she admits to using, negative for barbiturates, tricyclics, phencyclidine, amphetamine, benzodiazepine, cocaine and cannabinoids. Salicylate, acetaminophen, serum alcohol levels less than 10. MENTAL STATUS EXAM GENERAL APPEARANCE, BEHAVIOR AND ATTITUDE: The patient is calm, cooperative, wearing oxygen during initial interview. No periods of tearfulness. She is smiling and interacting well. No bizarre mannerisms or ticks, no psychomotor agitation or retardation. SPEECH: Regular rate, rhythm, volume and tone. MOOD: "It's better." AFFECT: Minimally constricted and mood-congruent, mostly euthymic. THOUGHT PROCESSES: Logical and goal-directed, no loose associations or flight of ideas. THOUGHT CONTENT: Free of auditory or visual hallucinations, ideas of reference, thought broadcastings, delusions, obsessions, compulsions. The patient denying adamantly any suicidal or homicidal ideations. SENSORIUM: Clear. COGNITION: Alert and oriented to person, place, time and situation. MEMORY: Immediate, recent and remote estimated intact. CONCENTRATION: Intact. INTELLIGENCE: Average, based on interview. INSIGHT AND JUDGMENT: Considered improving. The patient denying suicidal or homicidal ideation. Reports last suicidal ideation was one month ago, although feared overdosing on her medications including pain medications last night in an effort to control her pain. ASSESSMENT This is a 52-year-old single, female who is well known to the unit, suffering with somatic symptom disorder in the past with multiple inpatient psychiatric hospitalizations. She has been attending outpatient mental health care sessions through [facility] with an individual therapist and a medication provider. She is hoping to obtain [facility] in May of this year. She has been attempting to sell her trailer which fell through. She suffered an injury to her right leg after stepping on her right foot wrong approximately one month ago with multiple medical evaluations, ongoing pain. She reports that she has been started on some antibiotics which were disagreeing with her stomach and was seen earlier in the admission day for symptoms of heartburn, although went home, took the medication she was instructed to and woke up with worsening pain. She became worried that she might overdose on her medications for pain management and requested to be admitted to Behavioral Health Unit. Her last admission to [facility] was in July, at which time she was discharged to [facility] in [place], [place] where she stayed until November,. The patient was agreeable to a voluntary admission to Behavioral Health Unit due to feeling unsafe if she were to be discharged. DIAGNOSIS PER DSM-V 1. Adjustment disorder with depressed mood, suicidal ideation 2. 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 3. Persisting depressive disorder vs. major depression. 4. Stressors related to financial concerns and social stressors. PLAN 1. Will admit to the unit. 2. Necessary precautions will be implemented. 3. The patient will participate in individual and group therapy. 4. Medications will be ordered and titrated accordingly. We will resume her Escitalopram and Bupropion which she reports benefits from taking. She is currently engaged with [facility] for outpatient care. 5. Continue to monitor for pain related symptoms and encourage nonpharmacological treatment modalities. 6. Estimated length of stay 3-5 days. MTDD
[2018-04-24 14:50] VITALS: BP 120/80
[2018-04-24] MEDS: NABUMETONE 500 MG TAB PO SCH (21:15)
[2018-04-25 05:39] VITALS: BP 124/78
[2018-04-25] MEDS: TIOTROPIUM BROM INH 18 MCG/CAP INH SCH (06:01)
[2018-04-25] MEDS: BUDESO/FORMOT 80/4.5 MCG 6.9GM INH SCH (06:01)
[2018-04-25] MEDS: NABUMETONE 500 MG TAB PO SCH (08:57)
[2018-04-25] MEDS: CHOLECALCIFEROL 1000 UNIT TAB PO SCH (08:58)
[2018-04-25] MEDS: MULTIVITAMINS TAB PO SCH (08:58)
[2018-04-25] MEDS: ESCITALOPRAM OXALATE 10 MG TAB PO SCH (08:58)
[2018-04-25] MEDS: CLINDAMYCIN 150 MG CAP PO SCH (08:58)
[2018-04-25] MEDS: DILTIAZEM CD 120 MG CAPCR PO SCH (08:58)
[2018-04-25] MEDS: FAMOTIDINE 20 MG TAB PO SCH (08:58)
[2018-04-25] MEDS: buPROPion SR 150 MG TABCR PO SCH (08:58)
--- NOTE | 2018-04-25 10:04 | BHS Progress Note ---
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 Suicidal Ideation: None Homicidal Ideation: None S - Objective Physical Exam Vital Signs Allergies Coded Allergies aripiprazole (Verified Allergy, Intermediate, RASH, 04/23/18) lithium (Verified Allergy, Intermediate, RASH, 04/23/18) lurasidone (Verified Allergy, Intermediate, 04/23/18) quetiapine (Verified Allergy, Intermediate, DIZZY, 04/23/18) DIzzy varenicline (Verified Allergy, Intermediate, SWELLING, 04/23/18) ciprofloxacin (Verified Allergy, Mild, N/V, 04/23/18) sulfamethoxazole (Verified Allergy, Mild, HIVES, 04/23/18) topiramate (Verified Allergy, Mild, UPSET STOMACH, 04/23/18) Upset stomach trimethoprim (Verified Allergy, Mild, HIVES, 04/23/18) metoprolol (Unverified Allergy, Unknown, 04/23/18) dyspnea haloperidol (Verified Adverse Reaction, Severe, DYSTONIC REACTION, 04/23/18) propofol (Verified Adverse Reaction, Severe, HALLUCINATIONS, 04/23/18) PT STATES "I HEARD VOICES TELLING ME TO KILL MYSELF THE NIGHT AFTER I HAD A COLONOSCOPY" amoxicillin (Verified Adverse Reaction, Intermediate, Pruritus , 04/23/18) adhesive tape (Verified Adverse Reaction, Mild, RASH, 04/23/18) fluticasone (Verified Adverse Reaction, Mild, THRUSH, 04/23/18) salmeterol (Verified Adverse Reaction, Mild, THRUSH, 04/23/18) Muscle Strength and Tone: WNL Gait and Station: Steady [facility] Medications Reviewed: Side Effects, Benefits of Medication, Risks Allergies Reviewed: Yes Mental Status Exam General Appearance: Casual, Well Groomed, Good Eye Contact, Cooperative, Polite, Good Interaction Speech: Clear, Spontaneous, Normal Rate, Normal Rhythm, Normal Volume, Normal Tone Mood: No Dysthmic/Depressed; Euthymic Affect: Full and Appropriate, Calm Thought Process: Organized, Logical, Goal Directed; No Loose Associations, No Flight of Ideas Thought Content: No Suicidal Ideation, No Homicidal Ideation, No Delusions, No Auditory Halllucinations, No Visual Hallucinations, No Thought Broadcasting, No Ideas of Reference, No Obsessions, No Compulsions Sensorium: Clear Cognition: Alert & Oriented-Person, Alert & Oriented-Place, Alert & Oriented- Time, Mfnnm-[id number]-[id number] Memory: Immediate, Recent, Remote Intelligence: Average Insight Judgment: Intact Lab Laboratory Tests Test 04/21/18 02:14 04/24/18 00:17 04/24/18 00:24 Range/Units White Blood Count 4.7 6.6 4.5-11.0 k/uL Red Blood Count 3.75 4.34 4.17-5.56 M/uL Hemoglobin 11.6 13.3 12.0-16.0 g/dL Hematocrit 34.8 41.0 34.0-47.0 % Mean Corpuscular Volume 92.9 94.4 80.0-96.0 fL Mean Corpuscular Hemoglobin 31.0 30.7 26.0-33.0 pg Mean Corpuscular Hemoglobin Concent 33.4 32.5 32.0-36.0 g/dL Red Cell Distribution Width 13.4 13.9 11.5-14.5 % Platelet Count 194 240 150-450 K/uL Mean Platelet Volume 9.3 9.0 7.2-11.1 fL Neutrophils (%) (Auto) 63.6 69.5 39.4-72.5 % Lymphocytes (%) (Auto) 22.9 20.0 17.6-49.6 % Monocytes (%) (Auto) 10.4 7.6 4.1-12.4 % Eosinophils (%) (Auto) 2.4 2.5 0.4-6.7 % Basophils (%) (Auto) 0.7 0.4 0.3-1.4 % Nucleated RBC Relative Count (auto) 0.0 0.0 /100WBC Neutrophils # (Auto) 3.0 4.6 2.0-7.4 K/uL Lymphocytes # (Auto) 1.1 1.3 1.3-3.6 K/uL Monocytes # (Auto) 0.5 0.5 0.3-1.0 K/uL Eosinophils # (Auto) 0.1 0.2 0.0-0.5 K/uL Basophils # (Auto) 0.0 0.0 0.0-0.1 K/uL Nucleated RBC Absolute Count (auto) 0.00 0.00 K/uL Sodium Level 137 139 137-145 mmol/L Potassium Level 4.1 4.3 3.5-5.0 mmol/L Chloride Level 103 99 98-107 mmol/L Carbon Dioxide Level 27 33 22-31 mmol/L Blood Urea Nitrogen 19 15 7-18 mg/dl Creatinine 1.20 1.20 0.52-1.04 mg/dl Glomerular Filtration Rate Calc 46.8 46.8 Random Glucose 113 108 75-110 mg/dl Calcium Level 9.6 10.6 8.4-10.2 mg/dl Total Bilirubin 0.1 0.2 0.2-1.3 mg/dl Aspartate Amino Transf (AST/SGOT) 20 22 0-35 U/L Alanine Aminotransferase (ALT/SGPT) 31 40 0-56 U/L Alkaline Phosphatase 79 98 0-126 U/L Total Protein 5.9 6.7 6.3-8.2 g/dl Albumin 3.5 4.1 3.5-5.0 g/dl Urine Color Yellow Urine Clarity Slightly-cloudy Urine pH 6.0 4.8-9.5 pH Urine Specific [place] 1.010 Urine Protein Negative NEGATIVE mg/dL Urine Glucose (UA) Negative NEGATIVE mg/dL Urine Ketones Negative NEGATIVE mg/dL Urine Blood Negative NEGATIVE Urine Nitrite Negative NEGATIVE Urine Bilirubin Negative NEGATIVE Urine Urobilinogen Negative 0.2-1.9 mg/dL Urine Leukocyte Esterase Negative NEGATIVE Urine RBC <1 0-2/HPF /HPF Urine WBC 4 0-5/HPF /HPF Urine Squamous Epithelial Cells Many </=FEW /LPF Urine Transitional Epithelial Cells Few NONE-FEW /LPF Urine Bacteria Few NONE-FEW /HPF Urine Hyaline Casts Few NONE-FEW /LPF Urine Mucus None NONE-FEW /HPF Urine HCG, Qualitative Negative NEGATIVE Urine Opiates Screen Positive Urine Barbiturates Screen Negative Ur Tricyclic Antidepressants Screen Negative Urine Phencyclidine Screen Negative Urine Amphetamines Screen Negative Urine Benzodiazepines Screen Negative Urine Cocaine Screen Negative Urine Cannabinoids Screen Negative Magnesium Level 2.0 1.7-2.2 mg/dl Salicylates Level < 10 mg/L Salicylate Last Dose Date unk Acetaminophen Level < 10 ug/ml Serum Alcohol < 10 mg/dl Laboratory Tests 04/24/18 00:17: Urine HCG, Qualitative Negative Medications (Trade) Dose Ordered Sig/Catherine Route PRN Reason Start Time Stop Time Status Last Admin Dose Admin Acetaminophen (Tylenol(*)325 Mg Tab (Or Equiv)) 650 mg Q4H PRN PO HEADACHE 04/24/18 04:00 05/24/18 03:59 04/25/18 07:32 Budesonide/ Formoterol Fumarate (Symbicort 80/ 4.5 Mcg 6.9 Gm Inhaler) 2 inhalations BIDR INH 04/24/18 12:30 05/24/18 12:29 04/25/18 06:01 Bupropion HCl (Wellbutrin Sr 150 Mg Tabcr (Or Equiv)) 150 mg QDAY PO 04/24/18 12:00 05/24/18 11:59 04/25/18 08:58 Cholecalciferol (Vitamin D3 1000 Unit Tab) 1,000 unit QDAY PO 04/24/18 12:00 05/24/18 11:59 04/25/18 08:58 Clindamycin HCl (Cleocin(*) 150 Mg Cap (Or Equiv)) 300 mg QID PO 04/24/18 13:00 05/08/18 12:59 04/25/18 08:58 Diltiazem HCl (Cardizem Cd 120 Mg Capcr (Or Equiv)) 240 mg QDAY PO 04/24/18 12:00 05/24/18 11:59 04/25/18 08:58 Escitalopram Oxalate (Lexapro 10 Mg Tab (Or Equiv)) 20 mg QDAY PO 04/24/18 12:00 05/24/18 11:59 04/25/18 08:58 Famotidine (Pepcid(*) 20 Mg Tab (Or Equiv)) 20 mg QDAY PO 04/24/18 12:30 05/24/18 12:29 04/25/18 08:58 Multivitamins (Thera-M Enhanced Tab (Or Equiv)) 1 each QDAY PO 04/24/18 11:15 04/25/18 09:22 DC 04/24/18 12:12 Nabumetone (Relafen 500 Mg Tab (Or Equiv)) 750 mg BID PO 04/24/18 21:00 05/24/18 20:59 04/25/18 08:57 Pramipexole Dihydrochloride (Mirapex 0.25 Mg Tab (Or Equiv)) 1 mg QDAY PO 04/24/18 12:30 04/25/18 09:23 DC 04/24/18 12:13 Tiotropium [place] (Spiriva Inh 18 Mcg/Cap (Or Equiv)) 1 PUFF QDAYR INH 04/24/18 12:30 05/24/18 12:29 04/25/18 06:01 Vital Signs Date Time Temp Pulse Resp B/P (MAP) Pulse Ox O2 Delivery O2 Flow Rate FiO2 04/25/18 05:39 97.8 98 124/78 (93) 96 Nasal Cannula 2.3 04/24/18 14:50 18 BHS Assessment and Plan [id number] Encounter Date: Apr 25, 2018 [id number] Encounter Time: 10:21 BHS Plan: Admit to Unit, Necessary Precautions, Individual/Group Therapy, Admin/Titrate Meds, Educate Patient Tobacco Medications: Started Multpiple Antipsychotics Used: No Problems: (1) Somatic symptom disorder Status: Chronic (2) COPD (chronic obstructive pulmonary disease) Status: Chronic (3) Morbid obesity Status: Chronic (4) GERD (gastroesophageal reflux disease) Status: Chronic (5) Adjustment disorder with depressed mood Optional Permanent Comment: recent financial stressors. Last Edited By: Riley Avilez on Jul 09, 2017 12:04 Status: Acute Condition Discharge to home [facility] director of casework department appt. Thursday04/26/18 0900 with "Ziggy" Encourage follow up as scheduled w/[facility] # provided, encourage use for worsening s/s, SI/HI MIMI CORNELIUS NP Apr 25, 2018 10:04
[2018-04-25] MEDS ORDERED: PRAMIPEXOLE DIHYDROCHL 0.25 MG PO SCH (21:00)
--- NOTE | 2018-04-26 04:37 | ROMSA DISCHARGE ---
DATE OF ADMISSION: April 24, 2018 DATE OF DISCHARGE: April 25, 2018 ATTENDING PROVIDER Harriett Garza, Psychiatric/Mental Health Nurse Practitioner. FINAL DIAGNOSES PER DSM-V 1. Adjustment disorder with depressed mood secondary to recent right leg injury. 2. 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 3. Persisting depressive disorder. REASON FOR ADMISSION/BRIEF HISTORY This patient is a 52-year-old single female who presented to the emergency room after calling EMS stating that she was having thoughts of overdosing on her pain medication. She has multiple inpatient psychiatric admissions, with a history of somatic symptom disorder versus factitious disorder, with most recent inpatient admission being in July 2017. Patient reports that she has suffered a right lower extremity injury, with multiple workups and treatment recommendations since injury last month, although has had chronic pain which interferes with her mood and her sleep since the time of the injury. She has been sent to an orthopedic physician and had MRIs and imaging. She reports ongoing edema and pain rated an 8/10. Patient had ineffective pain control the night of admission, which caused her to have thoughts of overdosing on her pain medication for improved pain control. Patient called EMS and was subsequently transferred to the emergency department. Upon evaluation, she reported that she felt unsafe to go home, and she was agreeable to a voluntary admission to the Behavioral Health Unit for further evaluation and treatment. Patient reports other recent stress of attempting to sell her trailer in hopes of securing a [facility] apartment on May 07. She reports that she has many things scattered between her truck, her trailer, and a storage unit, although does report that she has assistance to help move upon securing [facility] housing, hopefully May 07. She is engaged with outpatient medication management providers and therapists through [facility]. She was reporting high anxiety, anger, and depression when initially evaluated. Following her last discharge in July 2017, she did transfer to [facility] in [place], [place], for four months, and was released in November 2017. Since that time, she has been engaged with [facility] for outpatient mental health assistance and has been taking Wellbutrin 150 mg p.o. every a.m. as well as escitalopram 20 mg, one p.o. every a.m., with reported benefit with her symptoms. She is reporting moderate depression. She denied anxiety and anger upon initially admitting. She reports decreased energy level and appetite. Sleep is not always sufficient due to chronic pain. She is now required to wear oxygen 2L per minute 24 hours a day. She reports her last suicidal ideation was approximately one month ago, although at time of admission, again, she reported she did not feel safe to go home, as she had thoughts of overdosing on her medication for pain control. Patient was brought to the Behavioral Health Unit. Her outpatient medications were continued. At the time of discharge interview, she reports safe to be discharged. She is agreeable with ongoing outpatient mental health care through [facility]. She is denying adamantly suicidal or homicidal ideation. She is agreeable to followup with medical and orthopedic providers for pain management. PHYSICAL EXAMINATION Please see emergency room notes for physical exam. Vital signs at the time of admission include temperature of 97.8, pulse 86, respiratory rate 18, blood pressure 136/66, pulse oximetry 94% on 2L of oxygen. Vital signs at time of discharge include temperature of 97.8, pulse 98, blood pressure 124/78, pulse oximetry 96% on 2L of nasal cannula. LABORATORY DATA CBC within normal limits. Chemistry panel with carbon dioxide 33, creatinine 1.20, calcium 10.6. Thyroid stimulating hormone is pending. Urine screen within normal limits, with many squamous epithelial cells. Toxicology including salicylate, acetaminophen, serum alcohol levels less than 10. Urine screen positive for opiates, which she admits to using; negative for barbiturates, tricyclics, phencyclidine, amphetamines, benzodiazepines, cocaine, and cannabinoids. MENTAL STATUS EXAMINATION GENERAL APPEARANCE, BEHAVIOR AND ATTITUDE: Patient is calm and cooperative, smiling appropriately, with no periods of tearfulness, no bizarre mannerisms or tics. Denies psychomotor agitation or retardation at time of discharge interview. SPEECH: Regular rate, rhythm, volume and tone. MOOD: Euthymic. AFFECT: Minimally constricted and mood-congruent. THOUGHT PROCESSES: Logical and goal-directed; no loose associations or flight of ideas. THOUGHT CONTENT: Free of auditory or visual hallucinations, ideas of reference, thought broadcasting, delusions, obsessions or compulsions. The patient is adamantly denying suicidal or homicidal ideation, feels safe to be discharged. SENSORIUM: Clear. COGNITION: Alert and oriented to person, place, time and situation. MEMORY: Immediate, recent and remote intact. INTELLIGENCE: Average, based on interview. INSIGHT AND JUDGMENT: Considered improved. Agreeable to outpatient followup. CONSULTATIONS None. TREATMENT Patient was resumed on her outpatient medications at time of discharge. She participated in individual and group therapy. She feels appropriate for ongoing outpatient care with appointment set up prior to discharge for followup at [facility] on April 29, 2018, at 10:30. Her discharge medications include: 1. Cardizem 240 mg, one p.o. daily. 2. Cleocin 150 mg x2, equaling 300 mg, four times a day. 3. Lexapro 20 mg, one p.o. daily. 4. Mirapex 1 mg p.o. daily. 5. Pepcid 20 mg, one p.o. daily. 6. Relafen 750 mg p.o. b.i.d. 7. Spiriva, one puff inhaler, one to two puffs daily. 8. Symbicort, two inhalations twice daily as needed. 9. Multivitamin, one p.o. daily. 10. Vitamin D3 1000 international units p.o. daily. 11. Wellbutrin 150 mg SR, 150 mg p.o. daily. 12. Ventolin inhaler, two puffs every four to six hours as needed. 13. Vistaril 25 mg, one p.o. every eight hours as needed for increased anxiety. CONDITION OF PATIENT ON DISCHARGE She is stable. Considered a minimal risk to herself or others. DISPOSITION The patient was discharged to home. She is agreeable with outpatient medication management and individual psychotherapy through [facility] upon discharge. She has an appointment appointment set up prior to discharge. She is given the crisis line number, encouraged use for worsening symptoms, suicidal or homicidal ideation. She is instructed to take medications only as prescribed. She is to abstain from alcohol and all illicit substances. She is agreeable to return to the emergency room for worsening symptoms, suicidal or homicidal ideation. Patient is competent and agreeable with the above discharge plan. ANIBAL
== END 2018-04-25 10:45 | disposition home or self-care (01) | DRG 881 ==
LOC: BHS 01:44
PROVIDERS: ADMIT Nurse Practitioner Psychiatric/Mental Health; ATTEND Nurse Practitioner Psychiatric/Mental Health
DX: F43.21 Adjustment disorder with depressed mood (principal); R45.851 Suicidal ideations; Z68.42 Body mass index [BMI] 45.0-49.9, adult; G47.33 Obstructive sleep apnea (adult) (pediatric); F17.210 Nicotine dependence, cigarettes, uncomplicated; F45.9 Somatoform disorder, unspecified; F68.13 Factitious disorder imposed on self, with combined psychological and physical signs and symptoms; F34.1 Dysthymic disorder; E66.9 Obesity, unspecified; J44.9 Chronic obstructive pulmonary disease, unspecified; G89.29 Other chronic pain; Z99.81 Dependence on supplemental oxygen; Z91.5 Personal history of self-harm
CPT/HCPCS: 81025; 82306; 93005; 94640; J3535

== ENCOUNTER 2018-04-26 21:30 | Emergency (ER) | payer MEDICARE, BC ==
[2018-03-25 11:42] VITALS: Wt 127.0 kg
[~2018-04-26 21:30] MED LIST changes: -FURO-45 PO
[2018-04-26] MEDS ORDERED: predniSONE 20 MG TAB PO ONE (21:35)
[2018-04-26] MEDS ORDERED: ALBUTEROL/IPRATROPIUM 3 ML NEB NEB ONE (21:35)
--- NOTE | 2018-04-26 21:35 | ER Report ---
History and Physical Time Seen By MD: 21:32 HPI/ROS CHIEF COMPLAINT: Dyspnea HISTORY OF PRESENT ILLNESS: 52-year-old female with a history of COPD O2 dependent on 2 L brought in by EMS tonight complaining of shortness of breath since 7 PM. She tried her inhalers without improvement. She subsequently tried a nebulizer treatment without improvement by 9 PM she became increasingly short of breath and called 911 for ambulance to bring her in for evaluation. Patient notes no fever or chills. She notes a productive cough of clear sputum. She's had no leg swelling or calf pain. She does have chronic right leg pain, which is undergoing evaluation. She's had previous ultrasounds without evidence of DVT. REVIEW OF SYSTEMS: Respiratory: As above Cardiovascular: No chest pain, no palpitations. Gastrointestinal: No vomiting, no abdominal pain. Musculoskeletal: No back pain. Allergies: Coded Allergies: aripiprazole (Verified Allergy, Intermediate, RASH, 04/23/18) lithium (Verified Allergy, Intermediate, RASH, 04/23/18) lurasidone (Verified Allergy, Intermediate, 04/23/18) quetiapine (Verified Allergy, Intermediate, DIZZY, 04/23/18) DIzzy varenicline (Verified Allergy, Intermediate, SWELLING, 04/23/18) ciprofloxacin (Verified Allergy, Mild, N/V, 04/23/18) sulfamethoxazole (Verified Allergy, Mild, HIVES, 04/23/18) topiramate (Verified Allergy, Mild, UPSET STOMACH, 04/23/18) Upset stomach trimethoprim (Verified Allergy, Mild, HIVES, 04/23/18) metoprolol (Unverified Allergy, Unknown, 04/23/18) dyspnea haloperidol (Verified Adverse Reaction, Severe, DYSTONIC REACTION, 04/23/18) propofol (Verified Adverse Reaction, Severe, HALLUCINATIONS, 04/23/18) PT STATES "I HEARD VOICES TELLING ME TO KILL MYSELF THE NIGHT AFTER I HAD A COLONOSCOPY" amoxicillin (Verified Adverse Reaction, Intermediate, Pruritus , 04/23/18) adhesive tape (Verified Adverse Reaction, Mild, RASH, 04/23/18) fluticasone (Verified Adverse Reaction, Mild, THRUSH, 04/23/18) salmeterol (Verified Adverse Reaction, Mild, THRUSH, 04/23/18) Home Meds Active Scripts Clindamycin Hcl (CLINDAMYCIN HCL) 300 Mg Capsule, 300 MG PO Q6H, #40 CAPSULE Prov:SKINNY EMMANUEL MD 04/22/18 Diltiazem Hcl (DILTIAZEM 24HR CD) 240 Mg Cap.er.24h, 240 MG PO QDAY, #90 CAP.SR.24H 3 Refills Prov:SKINNY EMMANUEL MD 04/12/18 Azithromycin (ZITHROMAX) 250 Mg Tablet, 1 TAB PO DIRECTED, #14 TAB Take three times a week on , Wednesdays and Fridays. Prov:SKINNY EMMANUEL MD 03/31/18 Ondansetron 4 Mg Odt (ONDANSETRON 4 MG ODT) 4 Mg Tab.rapdis, 4 MG PO ONCE for 5 Days, TAB Prov:YUDI VALADEZ MD 03/23/18 Tiotropium [place] (SPIRIVA) 18 Mcg/Cap Inh, 2 PUFF INH DAILY, #1 INH 11 Refills Prov:SKINNY EMMANUEL MD 05/14/17 Reported Medications Nabumetone (NABUMETONE) 750 Mg Tablet, 750 MG PO BID 04/21/18 Hydrocodone Bit/Acetaminophen (HYDROCODON-ACETAMINOPHEN 5-325) 1 Each Tablet, 1 EACH PO Q6H, TAB 04/21/18 Oxygen (OXYGEN) Inha, 2 L INH QDAY, L 01/09/18 Budesonide/Formoterol Fumarate (SYMBICORT 80-4.5 MCG INHALER) 10.2 Gm Hfa.aer.ad, 10.2 GM IH BID 12/07/17 Bupropion Hcl (WELLBUTRIN SR) 150 Mg Tablet.er, 150 MG PO QDAY, TAB 11/11/17 Escitalopram Oxalate (ESCITALOPRAM OXALATE) 20 Mg Tablet, 20 MG PO QDAY 11/11/17 Pramipexole Di-Hcl (MIRAPEX) 1 Mg Tablet, 1 MG PO DAILY 11/11/17 Famotidine (FAMOTIDINE) 20 Mg Tablet, 20 MG PO QDAY, TAB 11/11/17 Cholecalciferol (Vitamin D3) (VITAMIN D3) 1,000 Unit Tablet, 1000 UNIT PO QDAY, TAB 06/20/17 Ibuprofen (IBUPROFEN) 200 Mg Tablet, 2 TAB PO Q8H PRN for PAIN, TAB (MOTRIN): TAKE 400 MG EVERY 8 HRS NEEDED FOR PAIN. 10/31/17 Hydroxyzine Pamoate (HYDROXYZINE PAMOATE) 25 Mg Capsule, 25 TAB PO Q8H PRN for ANXIETY/INSOMNIA 01/27/17 Albuterol Sulfate 90 Mcg/Act (PROAIR HFA 90 MCG/ACT) 8.5 Gm Hfa.aer.ad, 2 PUFF IH Q4-6H PRN for DYSPNEA, INHALER 01/27/17 Multivitamin (MULTIVITAMINS) 1 Each Capsule, 1 EACH PO DAILY, CAPSULE 12/08/16 Reviewed Nurses Notes: Yes Old Medical Records Reviewed: Yes Hx Smoking: Yes Smoking Status: Current: Every Day Smoker Exposure to Second Hand Smoke?: Yes Hx Substance Use Disorder: No Hx Alcohol Use: Yes Constitutional Vital Sign - Last 24 Hours 04/26/18 04/26/18 04/26/18 04/26/18 21:36 21:36 21:45 21:50 Temp 98.5 Pulse 85 86 Resp 28 B/P (MAP) 136/74 Pulse Ox 92 94 94 O2 Delivery Nasal Cannula Nasal Cannula O2 Flow Rate 2.0 2.0 04/26/18 04/26/18 04/26/18 04/26/18 21:50 22:00 22:05 22:20 Pulse 76 80 83 89 Resp 20 B/P (MAP) 131/70 (90) Pulse Ox 99 91 91 04/26/18 04/26/18 04/26/18 04/26/18 22:30 22:30 22:35 22:50 Pulse 81 84 84 Resp 20 B/P (MAP) 127/72 (90) Pulse Ox 98 91 04/26/18 04/26/18 04/26/18 04/26/18 23:00 23:05 23:10 23:25 Pulse 94 92 93 B/P (MAP) 119/65 (83) Pulse Ox 91 91 91 04/26/18 04/26/18 04/26/18 04/27/18 23:30 23:40 23:45 00:00 Pulse 85 85 B/P (MAP) 132/67 (88) 125/70 (88) Pulse Ox 92 92 04/27/18 04/27/18 00:03 00:08 Pulse 91 89 Pulse Ox 92 92 Intake and Output 04/26/18 04/26/18 04/27/18 15:00 23:00 07:00 Intake Total 50 ml Balance 50 ml Physical Exam Vital signs stable, afebrile, pulse ox normal General Appearance: The patient is alert, has no immediate need for airway protection and no current signs of toxicity. Very mild respiratory distress, audible wheezing HEENT: Pupils equal and round no injection. TMs normal, oropharynx with mild erythema, no exudate or petechiae Respiratory: Chest is non tender, decreased breath sounds bilaterally, faint exp iratory wheezing in the right upper lung fountain Cardiac: regular rate and rhythm Gastrointestinal: Abdomen is soft and non tender, no masses, bowel sounds normal. Musculoskeletal: Neck: Neck is supple and non tender. No JVD, no lymphadenopathy Extremities have full range of motion and are non tender. No edema, no calf tenderness Skin: No rashes or lesions. DIFFERENTIAL DIAGNOSIS: After history and physical exam differential diagnosis was considered for shortness of breath including but not limited to pulmonary infectious process, COPD, asthma, pulmonary embolus and congestive heart failure. Medical Decision Making EKG/Imaging EKG Interpretation 12 lead EK Rhythm: normal sinus rhythm [place]: normal QRS: normal, possible anterior infarct with Q waves noted anteriorly in V1 through V3 ST segments: normal, no evidence of ischemia or dysrhythmia, diffuse T wave flattening in the V leads Imaging X-ray: Single view chest x-ray was obtained. I viewed the images myself on the PACS system. My interpretation of the images is: No infiltrate, no effusion, normal mediastinum, comparison to previous chest x-ray 04/17/18, no significant change. The radiologist interpretation had no clinically significant variation from this interpretation. ED Course/Re-evaluation ED Course Patient was admitted to an examination room. H&P was done. The differential diagnoses was considered. Patient ambulated out of her house to meet the ambulance. Patient's complaining of shortness of breath. She states her nebulizers and inhalers are not working. She's complaining of shortness of breath. On arrival, she is stable vital signs. She is stable, pulse ox on her usual 2 L. She appears in no acute respiratory distress. She does have wheezing on auscultation of the lung fountain. Primary limb the right side. She is treated with prednisone 69 g by mouth. She's given duo nebs 2. Her lungs sound clear. On reevaluation. She continues to state that she does feel short of breath and she is having increased work of breathing. There is no clinical signs of that. She's given magnesium 2 g IV and a 3rd neb albuterol. And observed. After several hours. She is feeling better. Her heart pounding when she was complaining of to the nurse's resolved since that was likely secondary to the nebs. She states she still has some mild increased work of breathing, but I think she is having a COPD exacerbation. She is currently on clindamycin and Zithromax prescribed by her primary care physician. I did offer a prescription for a short steroid taper but she states she has leftover prednisone at home and states she doesn't need it. Patient's advised to follow- up with primary care if unimproved in 2-3 days. Decision to Disposition Date: Apr 26, 2018 Decision to Disposition Time: 22:08 Depart Departure Latest Vital Signs Vital Signs Date Time Temp Pulse Resp B/P (MAP) Pulse Ox O2 Delivery O2 Flow Rate FiO2 04/27/18 00:08 89 92 04/27/18 00:00 125/70 (88) 04/26/18 22:30 20 04/26/18 21:50 Nasal Cannula 2.0 04/26/18 21:36 98.5 Core Temperature (Celsius): 37.23 Impression: Primary Impression: Dyspnea Additional Impression: COPD exacerbation Condition: Improved Disposition: HOME OR SELF-CARE Referrals: SKINNY EMMANUEL MD (PCP) Patient Instructions: COPD (Chronic Obstructive Pulmonary Disease) (ED) Additional Instructions: Follow-up with primary care if unimproved in 2-3 days Problem Qualifiers Primary Impression: Dyspnea Dyspnea type: unspecified Qualified Codes: R06.00 - Dyspnea, unspecified DENIA PUGA DO Apr 26, 2018 21:35
--- NOTE | 2018-04-26 22:12 | RADIOLOGY IMAGING REPORT ---
FACILITY: [facility] PATIENT NAME: Natividad Loaiza : 1965 MR: [id number] V: [id number] EXAM DATE: ORDERING PHYSICIAN: DENIA PUGA TECHNOLOGIST: Location: [facility] Patient: Natividad Loaiza : 1965 Visit/Account:[id number] Date of Sevice: 04/26/2018 CHEST SINGLE AP Indication: And dyspnea.. Comparison: 04/17/2018. Findings: Cardiomediastinal silhouette and pulmonary vessels within normal limits. There is no focal infiltrate or lobar consolidation. No pneumothorax or pleural effusion. Nodule. Upper abdomen is unremarkable. No acute bony abnormality. IMPRESSION: 1. No acute cardiopulmonary process. Report Dictated By: Gilberto Sanford at 04/26/2018 10:06 PM Report E-Signed By: Gilberto Sanford at 04/26/2018 10:07 PM WSN:[id number]
[2018-04-26] MEDS ORDERED: MAGNESIUM SUL* 2 GM/50 ML IVPB 50 ML IVPB ONE (22:20)
[2018-04-26] MEDS ORDERED: ALBUTEROL 2.5 MG/3 ML NEB NEB ONE (22:20)
--- NOTE | 2018-04-26 23:07 | EKG ---
FACILITY: [facility] [place] PATIENT NAME: FLORENCIO CRUZ : [id number] MR: [id number] V: [id number] EXAM DATE: ORDERING PHYSICIAN: DENIA PUGA TECHNOLOGIST: ANITA Test Reason : SYNCOPE Blood Pressure : / mmHG Vent. Rate : 076 BPM Atrial Rate : 076 BPM P-R Int : 158 ms QRS Dur : 078 ms QT Int : 398 ms P-R-T Axes : 050 036 070 degrees QTc Int : 447 ms Normal sinus rhythm Possible Left atrial enlargement Possible Anterior infarct , age undetermined Abnormal ECG When compared with ECG of 24-APR-2018 11:46, Nonspecific T wave abnormality now evident in Anterior leads Confirmed by STEFANI HERNANDEZ ([id number]) on 04/27/2018 6:27:41 AM Referred By: Confirmed By:STEFANI HERNANDEZ
[2018-04-27 06:52] VITALS: BP 145/79
[2018-04-28] MEDS ORDERED: FURO-45 PO (10:55)
[2018-04-28] MEDS ORDERED: AZIT-1 PO (10:55)
== END 2018-04-27 00:20 | disposition home or self-care (01) ==
LOC: ER 21:39
DX: J44.1 Chronic obstructive pulmonary disease with (acute) exacerbation (principal); F17.210 Nicotine dependence, cigarettes, uncomplicated
CPT/HCPCS: 71045; 93005; 94640; 96365; 99284; J3475; J7512; J7613; J7620

== ENCOUNTER → 2018-04-26 | Outpatient (CLI) | payer MEDICARE, BC ==
[2018-03-25 11:42] VITALS: BMI 48.5
== END ==
LOC: LAB 13:32
PROVIDERS: ATTEND Emergency Medicine
DX: E83.52 Hypercalcemia (principal)
CPT/HCPCS: 36415; 82310; 83519; 83970

== ENCOUNTER → 2018-04-26 | Outpatient (CLI) | payer MEDICARE ==
[2018-03-25 11:42] VITALS: BMI 48.5
[~2018-04-26] MED LIST changes: +FURO-45 PO
== END ==
LOC: AMB 21:10
PROVIDERS: ATTEND Nurse Practitioner
DX: R06.02 Shortness of breath (principal); R53.1 Weakness; J44.9 Chronic obstructive pulmonary disease, unspecified; F17.210 Nicotine dependence, cigarettes, uncomplicated
CPT/HCPCS: A0425; A0429

== ENCOUNTER 2018-05-05 01:51 | Emergency (ER) | payer MEDICARE ==
[2018-03-25 11:42] VITALS: Wt 127.0 kg
[~2018-05-05 01:51] MED LIST changes: +FURO-45 PO
[2018-05-05 02:00] VITALS: BP 129/99
--- NOTE | 2018-05-05 02:04 | ER Report ---
History and Physical Time Seen By MD: 01:56 HPI/ROS CHIEF COMPLAINT: Right leg pain HISTORY OF PRESENT ILLNESS: 52-year-old female presents ambulatory to the ER complaining of right leg pain. She notes pain in the shins and in the right lateral quadriceps muscle. Patient states she spent 25 minutes on the treadmill yesterday. She normally only spent 15 minutes. She notes that her leg feels tight with the muscles are. Patient's undergone extensive evaluation of this right lower extremity over the last several weeks. She's had an ultrasound is unremarkable. She's follow-up with primary care and placed on conical myosin for potential cellulitis. Patient was seen by orthopedics and placed on NSAIDs for James's cyst. Patient demonstrates good range of motion both the ankle and the knee. Allergies: Coded Allergies: aripiprazole (Verified Allergy, Intermediate, RASH, 05/05/18) lithium (Verified Allergy, Intermediate, RASH, 05/05/18) lurasidone (Verified Allergy, Intermediate, 05/05/18) quetiapine (Verified Allergy, Intermediate, DIZZY, 05/05/18) DIzzy varenicline (Verified Allergy, Intermediate, SWELLING, 05/05/18) ciprofloxacin (Verified Allergy, Mild, N/V, 05/05/18) sulfamethoxazole (Verified Allergy, Mild, HIVES, 05/05/18) topiramate (Verified Allergy, Mild, UPSET STOMACH, 05/05/18) Upset stomach trimethoprim (Verified Allergy, Mild, HIVES, 05/05/18) metoprolol (Unverified Allergy, Unknown, 05/05/18) dyspnea haloperidol (Verified Adverse Reaction, Severe, DYSTONIC REACTION, 05/05/18) propofol (Verified Adverse Reaction, Severe, HALLUCINATIONS, 05/05/18) PT STATES "I HEARD VOICES TELLING ME TO KILL MYSELF THE NIGHT AFTER I HAD A COLONOSCOPY" amoxicillin (Verified Adverse Reaction, Intermediate, Pruritus , 05/05/18) adhesive tape (Verified Adverse Reaction, Mild, RASH, 05/05/18) fluticasone (Verified Adverse Reaction, Mild, THRUSH, 05/05/18) salmeterol (Verified Adverse Reaction, Mild, THRUSH, 05/05/18) Home Meds Active Scripts Furosemide (FUROSEMIDE) 20 Mg Tablet, 1 TAB PO DAILY, #30 TAB Prov:EWELINA TREVINO MD 04/28/18 Azithromycin (ZITHROMAX) 250 Mg Tablet, 1 TAB PO DIRECTED, #36 TAB 3 Refills Take three times a week on , Wednesdays and Fridays. Prov:EWELINA TREVINO MD 04/28/18 Clindamycin Hcl (CLINDAMYCIN HCL) 300 Mg Capsule, 300 MG PO Q6H, #40 CAPSULE Prov:EWELINA TREVINO MD 04/22/18 Diltiazem Hcl (DILTIAZEM 24HR CD) 240 Mg Cap.er.24h, 240 MG PO QDAY, #90 CA P.SR.24H 3 Refills Prov:EWELINA TREVINO MD 04/12/18 Ondansetron 4 Mg Odt (ONDANSETRON 4 MG ODT) 4 Mg Tab.rapdis, 4 MG PO ONCE for 5 Days, TAB Prov:YUDI VALADEZ MD 03/23/18 Tiotropium [place] (SPIRIVA) 18 Mcg/Cap Inh, 2 PUFF INH DAILY, #1 INH 11 Refills Prov:EWELINA TREVINO MD 05/14/17 Reported Medications Nabumetone (NABUMETONE) 750 Mg Tablet, 750 MG PO BID 04/21/18 Hydrocodone Bit/Acetaminophen (HYDROCODON-ACETAMINOPHEN 5-325) 1 Each Tablet, 1 EACH PO Q6H, TAB 04/21/18 Oxygen (OXYGEN) Inha, 2 L INH QDAY, L 01/09/18 Budesonide/Formoterol Fumarate (SYMBICORT 80-4.5 MCG INHALER) 10.2 Gm Hfa.aer.ad, 10.2 GM IH BID 12/07/17 Bupropion Hcl (WELLBUTRIN SR) 150 Mg Tablet.er, 150 MG PO QDAY, TAB 11/11/17 Escitalopram Oxalate (ESCITALOPRAM OXALATE) 20 Mg Tablet, 20 MG PO QDAY 11/11/17 Pramipexole Di-Hcl (MIRAPEX) 1 Mg Tablet, 1 MG PO DAILY 11/11/17 Famotidine (FAMOTIDINE) 20 Mg Tablet, 20 MG PO QDAY, TAB 11/11/17 Cholecalciferol (Vitamin D3) (VITAMIN D3) 1,000 Unit Tablet, 1000 UNIT PO QDAY, TAB 06/20/17 Ibuprofen (IBUPROFEN) 200 Mg Tablet, 2 TAB PO Q8H PRN for PAIN, TAB (MOTRIN): TAKE 400 MG EVERY 8 HRS NEEDED FOR PAIN. 02/03/17 Hydroxyzine Pamoate (HYDROXYZINE PAMOATE) 25 Mg Capsule, 25 TAB PO Q8H PRN for ANXIETY/INSOMNIA 01/27/17 Albuterol Sulfate 90 Mcg/Act (PROAIR HFA 90 MCG/ACT) 8.5 Gm Hfa.aer.ad, 2 PUFF IH Q4-6H PRN for DYSPNEA, INHALER 01/27/17 Multivitamin (MULTIVITAMINS) 1 Each Capsule, 1 EACH PO DAILY, CAPSULE 12/08/16 Past Medical/Surgical History She was seen by orthopedics and given NSAID for possible popliteal cyst which did not help. She was then treated with ckindamycin but had nausea and discontinued it. She was seen in the ER yesterday with pain and COPD exacerbation. She was given IV magnesium yesterday which helped. An US for DVT was negative. Past Family Social History Reviewed Reviewed by: Dr. 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) sleep apnea (Uses BIPAP, since 04/2015) other respiratory history (Chronic repiratory failure with hypoxia) Gastrointestinal: Reports hx of: GERD Psychiatric: Reports hx of: depression psych hospitalization suicide attempt(s) (4 attempts, last attempt 01/26/17) other psychiatric history (somatic symptom disorder) Endocrine: Reports hx of: hypothyroidism Past Surgical History HEENT: Reports hx of: tonsillectomy (06/19) Gastrointestinal: Reports hx of: cholecystectomy (12/18/2015) Hx Smoking: Yes Smoking Status: Current: Every Day Smoker Exposure to Second Hand Smoke?: Yes Hx Substance Use Disorder: No Hx Alcohol Use: Yes Constitutional Vital Sign - Last 24 Hours 05/05/18 05/05/18 05/05/18 05/05/18 01:55 01:55 01:56 02:00 Temp 98.1 Pulse 98 97 Resp 20 B/P (MAP) 161/121 (134) 161/121 129/99 (109) Pulse Ox 92 82 O2 Delivery Nasal Cannula 05/05/18 05/05/18 05/05/18 05/05/18 02:01 02:06 02:11 02:16 Pulse 87 78 78 76 Pulse Ox 96 96 96 96 05/05/18 02:21 Pulse Ox 96 Physical Exam Vital signs stable, afebrile, pulse ox normal, with pressure grossly elevated General appearance: Alert no distress. No acute distress Respiratory: Chest is non tender, lungs are clear to auscultation. Cardiac: Regular rate and rhythm Extremities: Examination of the right lower extremity reveals no tenderness of the ankle or knee. There is full range of motion. There is no pain with stressing of the ligaments of the knee. DIFFERENTIAL DIAGNOSIS: After history and physical exam differential diagnosis was considered for leg pain, tendinitis, schilling splints, muscle strain, knee sprain, arthritis, James cyst Medical Decision Making ED Course/Re-evaluation ED Course Patient was admitted to an examination room. H&P was done. The differential diagnoses was considered. On clinical examination. Patient has a neurovascularly intact right lower extremity. There is no pain that can be elicited on palpation or with range of motion. Patient's on a treatment plan restricting use of opiate pain relievers. Patient's advised Tylenol and to continue on her Nembutal and. Patient advised to follow-up with primary care for more hydrocodone if she is unimproved in 2-3 days. Decision to Disposition Date: May 05, 2018 Decision to Disposition Time: 02:04 Depart Departure Latest Vital Signs Vital Signs Date Time Temp Pulse Resp B/P (MAP) Pulse Ox O2 Delivery O2 Flow Rate FiO2 05/05/18 02:21 96 05/05/18 02:16 76 05/05/18 02:00 129/99 (109) 05/05/18 01:55 98.1 20 Nasal Cannula Core Temperature (Celsius): 37.23 Impression: Primary Impression: Right leg pain Additional Impressions: Overuse syndrome of lower leg COPD (chronic obstructive pulmonary disease) Condition: Improved Disposition: HOME OR SELF-CARE Referrals: EWELINA TREVINO MD (PCP) Patient Instructions: Leg Pain (ED), Muscle Strain (ED) Additional Instructions: Take your Nembutal and as prescribed Take Tylenol as needed Use any leftover hydrocodone that you have for pain relief Apply ice packs alternating with a heating pad to the affected muscular areas Follow-up with your primary care if unimproved in one to 2 days Problem Qualifiers Additional Impressions: Overuse syndrome of lower leg Encounter type: initial encounter Laterality: right Qualified Codes: S86.911A - Strain of unspecified muscle(s) and tendon(s) at lower leg level, right leg, initial encounter COPD (chronic obstructive pulmonary disease) COPD type: unspecified COPD Qualified Codes: J44.9 - Chronic obstructive pulmonary disease, unspecified DENIA PUGA DO May 05, 2018 02:04
[2018-05-05] MEDS ORDERED: HYDR-2966 PO (16:05)
== END 2018-05-05 02:24 | disposition home or self-care (01) ==
LOC: ER 02:14
DX: S86.911A Strain of unspecified muscle(s) and tendon(s) at lower leg level, right leg, initial encounter (principal); M70.861 Other soft tissue disorders related to use, overuse and pressure, right lower leg; J44.9 Chronic obstructive pulmonary disease, unspecified
CPT/HCPCS: 99281

== ENCOUNTER 2018-05-11 13:30 | Outpatient (RCR) | payer MEDICARE ==
[2018-03-25 11:42] VITALS: BMI 48.5
== END 2018-05-11 18:00 | disposition home or self-care (01) ==
LOC: CARD 13:30
PROVIDERS: ATTEND Emergency Medicine
DX: J44.9 Chronic obstructive pulmonary disease, unspecified (principal)
CPT/HCPCS: G0424 ×3

== ENCOUNTER 2018-05-24 18:36 | Emergency (ER) | payer MEDICARE ==
[2018-03-25 11:42] VITALS: Wt 122.5 kg
--- NOTE | 2018-05-24 18:45 | ER Report ---
History and Physical Time Seen By MD: 18:45 HPI/ROS CHIEF COMPLAINT: Trouble swallowing HISTORY OF PRESENT ILLNESS: This is a 52-year-old female. She says she's been having trouble swallowing today. Pills getting stuck. Caused her to vomit a co uple of times today. She does have a history of reflux, currently taking famotidine. She has never had strictures that she is aware of. Has a little bit of a sore throat. Mild cough. She does have COPD. No shortness of breath at this time though. Has had a little bit of epigastric and mid area chest pain when the pills got stuck but that seems to be improving. Denies any back pain. No other vomiting or nausea. Normal bowel function without blood or melena. Allergies: Coded Allergies: aripiprazole (Verified Allergy, Intermediate, RASH, 05/05/18) lithium (Verified Allergy, Intermediate, RASH, 05/05/18) lurasidone (Verified Allergy, Intermediate, 05/05/18) quetiapine (Verified Allergy, Intermediate, DIZZY, 05/05/18) DIzzy varenicline (Verified Allergy, Intermediate, SWELLING, 05/05/18) ciprofloxacin (Verified Allergy, Mild, N/V, 05/05/18) sulfamethoxazole (Verified Allergy, Mild, HIVES, 05/05/18) topiramate (Verified Allergy, Mild, UPSET STOMACH, 05/05/18) Upset stomach trimethoprim (Verified Allergy, Mild, HIVES, 05/05/18) metoprolol (Unverified Allergy, Unknown, 05/05/18) dyspnea haloperidol (Verified Adverse Reaction, Severe, DYSTONIC REACTION, 05/05/18) propofol (Verified Adverse Reaction, Severe, HALLUCINATIONS, 05/05/18) PT STATES "I HEARD VOICES TELLING ME TO KILL MYSELF THE NIGHT AFTER I HAD A COLONOSCOPY" amoxicillin (Verified Adverse Reaction, Intermediate, Pruritus , 05/05/18) adhesive tape (Verified Adverse Reaction, Mild, RASH, 05/05/18) fluticasone (Verified Adverse Reaction, Mild, THRUSH, 05/05/18) salmeterol (Verified Adverse Reaction, Mild, THRUSH, 05/05/18) Home Meds Active Scripts Pantoprazole Sodium (PROTONIX) 40 Mg Granpkt.dr, 40 MG PO QDAY, #30 PACK 0 Refills Prov:GARY RODRIGUEZ MD 05/24/18 Prednisone (PREDNISONE) 20 Mg Tablet, 60 MG PO QDAY, #12 TAB 0 Refills Prov:GARY RODRIGUEZ MD 05/24/18 Hydrochlorothiazide (HYDROCHLOROTHIAZIDE) 25 Mg Tablet, 1 TAB PO QDAY, #30 TAB 11 Refills Prov:SKINNY EMMANUEL MD 05/05/18 Azithromycin (ZITHROMAX) 250 Mg Tablet, 1 TAB PO DIRECTED, #36 TAB 3 Refills Take three times a week on , Wednesdays and Fridays. Prov:SKINNY EMMANUEL MD 04/28/18 Diltiazem Hcl (DILTIAZEM 24HR CD) 240 Mg Cap.er.24h, 240 MG PO QDAY, #90 CAP.SR.24H 3 Refills Prov:SKINNY EMMANUEL MD 04/12/18 Ondansetron 4 Mg Odt (ONDANSETRON 4 MG ODT) 4 Mg Tab.rapdis, 4 MG PO ONCE for 5 Days, TAB Prov:YUDI VALADEZ MD 03/23/18 Tiotropium [place] (SPIRIVA) 18 Mcg/Cap Inh, 2 PUFF INH DAILY, #1 INH 11 Refills Prov:SKINNY EMMANUEL MD 05/14/17 Reported Medications Nabumetone (NABUMETONE) 750 Mg Tablet, 750 MG PO BID 04/21/18 Hydrocodone Bit/Acetaminophen (HYDROCODON-ACETAMINOPHEN 5-325) 1 Each Tablet, 1 EACH PO Q6H, TAB 04/21/18 Oxygen (OXYGEN) Inha, 2 L INH QDAY, L 01/09/18 Budesonide/Formoterol Fumarate (SYMBICORT 80-4.5 MCG INHALER) 10.2 Gm Hfa.aer.ad, 10.2 GM IH BID 12/07/17 Bupropion Hcl (WELLBUTRIN SR) 150 Mg Tablet.er, 150 MG PO QDAY, TAB 11/11/17 Escitalopram Oxalate (ESCITALOPRAM OXALATE) 20 Mg Tablet, 20 MG PO QDAY 11/11/17 Pramipexole Di-Hcl (MIRAPEX) 1 Mg Tablet, 1 MG PO DAILY 11/11/17 Famotidine (FAMOTIDINE) 20 Mg Tablet, 20 MG PO QDAY, TAB 11/11/17 Cholecalciferol (Vitamin D3) (VITAMIN D3) 1,000 Unit Tablet, 1000 UNIT PO QDAY, TAB 06/20/17 Ibuprofen (IBUPROFEN) 200 Mg Tablet, 2 TAB PO Q8H PRN for PAIN, TAB (MOTRIN): TAKE 400 MG EVERY 8 HRS NEEDED FOR PAIN. 02/03/17 Hydroxyzine Pamoate (HYDROXYZINE PAMOATE) 25 Mg Capsule, 25 TAB PO Q8H PRN for ANXIETY/INSOMNIA 01/27/17 Albuterol Sulfate 90 Mcg/Act (PROAIR HFA 90 MCG/ACT) 8.5 Gm Hfa.aer.ad, 2 PUFF IH Q4-6H PRN for DYSPNEA, INHALER 01/27/17 Multivitamin (MULTIVITAMINS) 1 Each Capsule, 1 EACH PO DAILY, CAPSULE 12/08/16 Reviewed Nurses Notes: Yes Hx Smoking: Yes Smoking Status: Current: Every Day Smoker Exposure to Second Hand Smoke?: Yes Hx Substance Use Disorder: No Hx Alcohol Use: Yes Constitutional Vital Sign - Last 24 Hours 05/24/18 05/24/18 05/24/18 05/24/18 18:36 18:41 18:45 19:00 Temp 98.3 Pulse ??? 111 Resp 20 B/P (MAP) 141/103 141/103 (116) 118/80 (93) Pulse Ox 93 O2 Delivery Nasal Cannula 05/24/18 05/24/18 05/24/18 05/24/18 19:06 19:30 19:36 20:30 Pulse 88 82 B/P (MAP) 116/77 (90) 130/78 (95) Pulse Ox 96 96 05/24/18 21:00 B/P (MAP) 122/74 (90) Physical Exam General Appearance: The patient is alert. No acute distress. Eyes: Pupils are equal, round. No pallor, injection or icterus. [ENT:] [Mucous membranes are moist.] [Normal oral mucosa.] [Posterior oropharynx is normal.] [Normal nasal mucosa.] [Normal tympanic membranes and canals.] [ ] Neck: [Supple and non tender.] [No lymphadenopathy.] Respiratory: [Breathing easily and unlabored.] [Lungs are clear to auscultation.] [There are no retractions or accessory muscle use.] Cardiovascular: [Regular rate and rhythm.] [No murmurs, gallops or rubs.] [Normal capillary refill.] [No edema.] [No carotid bruits.] [ ] Gastrointestinal: [Abdomen is soft and non tender.] [Nondistended.] [No rebound or guarding.] [No masses or organomegaly.] [Normal active bowel sounds.] [No costovertebral angle tenderness with percussion.] [Genitourinary:] [ ] [Neurological:] [Alert and oriented x3.] [Cranial nerves II through XII show no acute deficits on my exam.] [No focal neurologic deficits in the extremities.] [ ] [Skin:] [Warm and dry.] [No rashes.] [Musculoskeletal:] [Extremities are nontender.] [Full range of motion.] [No tenderness in palpation of the cervical, thoracic and lumbar spine.] [ ] [DIFFERENTIAL DIAGNOSIS: After history and physical exam, differential diagnosis was considered for] [ ] Medical Decision Making Data Points Result Diagram: 05/24/18 1900 Laboratory Hematology Test 05/24/18 19:00 Sodium Level 138 mmol/L (137-145) Potassium Level 3.7 mmol/L (3.5-5.0) Chloride Level 98 mmol/L (98-107) Carbon Dioxide Level 34 mmol/L (22-31) Blood Urea Nitrogen 18 mg/dl (7-18) Creatinine 1.40 mg/dl (0.52-1.04) Glomerular Filtration Rate Calc 39.2 Random Glucose 105 mg/dl (75-110) Calcium Level 9.4 mg/dl (8.4-10.2) Total Bilirubin 0.2 mg/dl (0.2-1.3) Aspartate Amino Transf (AST/SGOT) 21 U/L (0-35) Alanine Aminotransferase (ALT/SGPT) 22 U/L (0-56) Alkaline Phosphatase 100 U/L (0-126) Total Protein 6.8 g/dl (6.3-8.2) Albumin 4.0 g/dl (3.5-5.0) Chemistry Test 05/24/18 19:00 Glomerular Filtration Rate Calc 39.2 Calcium Level 9.4 mg/dl (8.4-10.2) Total Bilirubin 0.2 mg/dl (0.2-1.3) Aspartate Amino Transf (AST/SGOT) 21 U/L (0-35) Alanine Aminotransferase (ALT/SGPT) 22 U/L (0-56) Alkaline Phosphatase 100 U/L (0-126) Total Protein 6.8 g/dl (6.3-8.2) Albumin 4.0 g/dl (3.5-5.0) EKG/Imaging Imaging EXAMINATION: CT chest with IV contrast HISTORY: Trouble swallowing food. Reflux. COMPARISON: CT of the chest from 03/24/2018. TECHNIQUE: Axial images were taken through the chest during injection of nonionic iodinated intravenous contrast. Sagittal and coronal reformatted images are also submitted. CONTRAST: 75 mL of IV Isovue-300 One of the following dose optimization techniques was utilized in the perfor louis of this exam: Automated exposure control; adjustment of the mA and/or kV according to the patient's size; or use of an iterative reconstruction technique. Specific details can be referenced in the facility's radiology CT exam operational policy. FINDINGS: Lungs / pleura: Negative. Mediastinum / kartik: Negative. Heart / pericardium: Negative. Vessels: Mild calcified plaque of the aorta and at the origins of the great vessels. Musculoskeletal / Body wall: Multilevel disc degenerative changes in the thoracic spine. Lymph node assessment: Negative. Lower neck: Negative. Upper abdomen: Postcholecystectomy. IMPRESSION: No CT evidence of acute intrathoracic pathology. Report Dictated By: Declan Seth MD at 05/24/2018 8:54 PM EXAMINATION: CT neck with IV contrast HISTORY: Trouble swallowing food. Reflux. COMPARISON: 01/17/2015. TECHNIQUE: Spiral scan was obtained from the hard palate through the upper chest during injection of nonionic iodinated intravenous contrast. Sagittal and coronal reformatted images are also submitted. CONTRAST: 75 mL of IV Isovue-370 One of the following dose optimization techniques was utilized in the performance of this exam: Automated exposure control; adjustment of the mA and/or kV according to the patient's size; or use of an iterative reconstruction technique. Specific details can be referenced in the facility's radiology CT exam operational policy. FINDINGS: Masses/lesions: No mass, fluid collection, or significant soft tissue swelling is seen in the neck. Airway: Normal. Vessels: Mild calcified plaque at the carotid bifurcations. Mild calcified plaque of the brachiocephalic trunk and at the right subclavian artery origin. Retropharyngeal course of the carotid arteries. Musculoskeletal / Body wall: Multilevel disc and facet degenerative changes in the cervical spine. Lymph node assessment: Negative. Visualized orbits / brain / paranasal sinuses: Negative. Upper chest: Negative. IMPRESSION: No evidence of acute pathology in the neck. Report Dictated By: Declan Seth MD at 05/24/2018 8:38 PM ED Course/Re-evaluation Clinical Indication for ER IV: IV Access ED Course CMP shows mild renal insufficiency but she was able to get her CT scans done. These did not show any acute abnormality. She is feeling a little bit better. We talked about the need for upper endoscopy and she will follow-up with Dr. Pelletier or with Dr. Velasco for this. She will add Protonix to her famotidine. Decision to Disposition Date: May 24, 2018 Decision to Disposition Time: 21:38 Depart Departure Latest Vital Signs Vital Signs Date Time Temp Pulse Resp B/P (MAP) Pulse Ox O2 Delivery O2 Flow Rate FiO2 05/24/18 21:00 122/74 (90) 05/24/18 19:36 82 96 05/24/18 18:41 98.3 20 Nasal Cannula Core Temperature (Celsius): 37.23 Impression: Primary Impression: Dysphagia Condition: Improved Disposition: HOME OR SELF-CARE Referrals: SKINNY EMMANUEL MD (PCP) New Scripts Pantoprazole Sodium (PROTONIX) 40 Mg Granpkt.dr 40 MG PO QDAY, #30 PACK 0 Refills Prov: GARY RODRIGUEZ MD 05/24/18 Prednisone (PREDNISONE) 20 Mg Tablet 60 MG PO QDAY, #12 TAB 0 Refills Prov: GARY RODRIGUEZ MD 05/24/18 Patient Instructions: Dysphagia (ED) Additional Instructions: Keep taking your Famotidine and add Protonix 40mg once a day. Take Prednisone 20mg, take 3 tablets once a day for 4 days. Call and arrange a follow-up with Dr. Pelletier for further evaluation. Liquid and soft foods. Take one pill at a time when taking medicines. Problem Qualifiers Primary Impression: Dysphagia Dysphagia type: unspecified Qualified Codes: R13.10 - Dysphagia, unspecified GARY RODRIGUEZ MD May 24, 2018 18:45
[2018-05-24] MEDS ORDERED: IOPAMIDOL 61% 75 ML INFUS BTL 75 ML ONE (19:12)
--- NOTE | 2018-05-24 20:58 | RADIOLOGY IMAGING REPORT ---
FACILITY: [facility] - [place] PATIENT NAME: Natividad Loaiza : 1965 MR: [id number] V: [id number] EXAM DATE: ORDERING PHYSICIAN: GARY RODRIGUEZ TECHNOLOGIST: Location: [facility] [place] Patient: Natividad Loaiza : 1965 Visit/Account:[id number] Date of Sevice: 05/24/2018 ADDENDUM #1 ADDENDUM: The contrast that was administered is Isovue-300, not Isovue-370. Report Dictated By: Declan Seth MD at 05/24/2018 8:56 PM Report E-Signed By: Declan Seth MD at 05/24/2018 8:57 PM ORIGINAL REPORT EXAMINATION: CT neck with IV contrast HISTORY: Trouble swallowing food. Reflux. COMPARISON: 01/17/2015. TECHNIQUE: Spiral scan was obtained from the hard palate through the upper chest during injection o f nonionic iodinated intravenous contrast. Sagittal and coronal reformatted images are also submitte d. CONTRAST: 75 mL of IV Isovue-370 One of the following dose optimization techniques was utilized in the performance of this exam: Autom ated exposure control; adjustment of the mA and/or kV according to the patient's size; or use of an i terative reconstruction technique. Specific details can be referenced in the facility's radiology C T exam operational policy. FINDINGS: Masses/lesions: No mass, fluid collection, or significant soft tissue swelling is seen in the neck. Airway: Normal. Vessels: Mild calcified plaque at the carotid bifurcations. Mild calcified plaque of the brachiocep halic trunk and at the right subclavian artery origin. Retropharyngeal course of the carotid arterie s. Musculoskeletal / Body wall: Multilevel disc and facet degenerative changes in the cervical spine. Lymph node assessment: Negative. Visualized orbits / brain / paranasal sinuses: Negative. Upper chest: Negative. IMPRESSION: No evidence of acute pathology in the neck. Report Dictated By: Declan Seth MD at 05/24/2018 8:38 PM Report E-Signed By: Declan Seth MD at 05/24/2018 8:54 PM WSN:[email or web address]
[2018-05-24 21:00] VITALS: BP 122/74
--- NOTE | 2018-05-24 21:08 | RADIOLOGY IMAGING REPORT ---
FACILITY: [facility] PATIENT NAME: Natividad Loaiza : 1965 MR: [id number] V: [id number] EXAM DATE: ORDERING PHYSICIAN: GARY RODRIGUEZ TECHNOLOGIST: Location: [facility] Patient: Natividad Loaiza : 1965 Visit/Account:[id number] Date of Sevice: 05/24/2018 EXAMINATION: CT chest with IV contrast HISTORY: Trouble swallowing food. Reflux. COMPARISON: CT of the chest from 03/24/2018. TECHNIQUE: Axial images were taken through the chest during injection of nonionic iodinated intrave nous contrast. Sagittal and coronal reformatted images are also submitted. CONTRAST: 75 mL of IV Isovue-300 One of the following dose optimization techniques was utilized in the performance of this exam: Autom ated exposure control; adjustment of the mA and/or kV according to the patient's size; or use of an i terative reconstruction technique. Specific details can be referenced in the facility's radiology C T exam operational policy. FINDINGS: Lungs / pleura: Negative. Mediastinum / kartik: Negative. Heart / pericardium: Negative. Vessels: Mild calcified plaque of the aorta and at the origins of the great vessels. Musculoskeletal / Body wall: Multilevel disc degenerative changes in the thoracic spine. Lymph node assessment: Negative. Lower neck: Negative. Upper abdomen: Postcholecystectomy. IMPRESSION: No CT evidence of acute intrathoracic pathology. Report Dictated By: Declan Seth MD at 05/24/2018 8:54 PM Report E-Signed By: Declan Seth MD at 05/24/2018 9:03 PM WSN:[email or web address]
[2018-05-24] MEDS ORDERED: PANT40SU3 PO (21:42)
[2018-05-24] MEDS ORDERED: PRED20TA6 PO (21:42)
[2018-05-24] MEDS ORDERED: predniSONE 20 MG TAB PO ONE (21:45)
[2018-05-24] MEDS ORDERED: PANTOPRAZOLE SOD 40 MG TABEC PO ONE (21:45)
[2018-05-27] MEDS ORDERED: FAMO-67 PO (10:26)
== END 2018-05-24 21:50 | disposition home or self-care (01) ==
LOC: ER 18:59
DX: R13.10 Dysphagia, unspecified (principal)
CPT/HCPCS: 70491; 71260; 99284; A9270; J7512; Q9967; 82040; 82247; 82310; 82374; 82435; 82565; 82947; 84075; 84132; 84155; 84295; 84450; 84460; 84520

== ENCOUNTER 2018-06-01 01:01 | Day surgery (SDC) | payer MEDICARE, BC ==
[2018-03-25 11:42] VITALS: Ht 160 cm; Wt 120.2 kg
[2018-06-01] VITALS (7 sets, daily range): BP systolic 107–135; BP diastolic 57–73
[~2018-06-01] VITALS: Ht 160 cm; Wt 120.2 kg
[~2018-06-01 01:01] MED LIST changes: +FLUT1BLS3 INH; +PANT40SU3 PO
[2018-06-01] MEDS ORDERED: LIDOCAINE/SOD BICARB 8.4% SYR ID ONE (06:30)
[2018-06-01] MEDS ORDERED: NORMOSOL R SOLN(*) 1000 ML BAG 1,000 ML IV PRN (06:30)
[2018-06-01] MEDS ORDERED: ALBUTEROL/IPRATROPIUM 3 ML NEB ONE (07:26)
[2018-06-01] MEDS ORDERED: GLYCOPYRROLATE 0.2MG/ML 1 ML INJ ONE (07:37)
[2018-06-01] MEDS ORDERED: MIDAZOLAM 2 MG/2 ML VIAL ONE (07:37)
--- NOTE | 2018-06-01 08:05 | Short(Outpt) Discharge Summary ---
Discharge Summary Reason for Hosp/Final Diag: (1) Dysphagia Status: Acute Hospital Course & Plan: pt presented for egd. she tolerated the procedure well and there were no complications. path pending. she will be discharged home when criteria met. Departure Discharge to: Home Discharge Instructions Home Meds Active Scripts Famotidine (FAMOTIDINE) 20 Mg Tablet, 20 MG PO QDAY, #90 TAB 3 Refills Prov:SKINNY EMMANUEL MD 05/27/18 Pantoprazole Sodium (PROTONIX) 40 Mg Granpkt.dr, 40 MG PO QDAY, #30 PACK 0 Refills Prov:GARY RODRIGUEZ MD 05/24/18 Prednisone (PREDNISONE) 20 Mg Tablet, 60 MG PO QDAY, #12 TAB 0 Refills Prov:GARY RODRIGUEZ MD 05/24/18 Hydrochlorothiazide (HYDROCHLOROTHIAZIDE) 25 Mg Tablet, 1 TAB PO QDAY, #30 TAB 11 Refills Prov:SKINNY EMMANUEL MD 05/05/18 Azithromycin (ZITHROMAX) 250 Mg Tablet, 1 TAB PO DIRECTED, #36 TAB 3 Refills Take three times a week on , Wednesdays and Fridays. Prov:SKINNY EMMANUEL MD 04/28/18 Tiotropium [place] (SPIRIVA) 18 Mcg/Cap Inh, 2 PUFF INH DAILY, #1 INH 11 Refills Prov:SKINNY EMMANUEL MD 05/14/17 Reported Medications Fluticasone/Vilanterol (Breo Ellipta 200-25 Mcg INH) 1 Each Blst.w.dev, 1 PUFF INH QDAY 05/28/18 Oxygen (OXYGEN) Inha, 2 L INH QDAY, L 01/09/18 Bupropion Hcl (WELLBUTRIN SR) 150 Mg Tablet.er, 150 MG PO QDAY, TAB 11/11/17 Escitalopram Oxalate (ESCITALOPRAM OXALATE) 20 Mg Tablet, 20 MG PO QDAY 11/11/17 Pramipexole Di-Hcl (MIRAPEX) 1 Mg Tablet, 1 MG PO DAILY 11/11/17 Cholecalciferol (Vitamin D3) (VITAMIN D3) 1,000 Unit Tablet, 1000 UNIT PO QDAY, TAB 06/20/17 Hydroxyzine Pamoate (HYDROXYZINE PAMOATE) 25 Mg Capsule, 25 TAB PO Q8H PRN for ANXIETY/INSOMNIA 01/27/17 Albuterol Sulfate 90 Mcg/Act (PROAIR HFA 90 MCG/ACT) 8.5 Gm Hfa.aer.ad, 2 PUFF IH Q4-6H PRN for DYSPNEA, INHALER 01/27/17 Multivitamin (MULTIVITAMINS) 1 Each Capsule, 1 EACH PO DAILY, CAPSULE 12/08/16 Discontinued Reported Medications Budesonide/Formoterol Fumarate (SYMBICORT 80-4.5 MCG INHALER) 10.2 Gm Hfa.aer.ad, 10.2 GM IH BID 12/07/17 Nabumetone (NABUMETONE) 750 Mg Tablet, 750 MG PO BID 04/21/18 Hydrocodone Bit/Acetaminophen (HYDROCODON-ACETAMINOPHEN 5-325) 1 Each Tablet, 1 EACH PO Q6H, TAB 04/21/18 Ibuprofen (IBUPROFEN) 200 Mg Tablet, 2 TAB PO Q8H PRN for PAIN, TAB (MOTRIN): TAKE 400 MG EVERY 8 HRS NEEDED FOR PAIN. 02/03/17 Discontinued Scripts Diltiazem Hcl (DILTIAZEM 24HR CD) 240 Mg Cap.er.24h, 240 MG PO QDAY, #90 CAP.SR.24H 3 Refills Prov:SKINNY EMMANUEL MD 04/12/18 Ondansetron 4 Mg Odt (ONDANSETRON 4 MG ODT) 4 Mg Tab.rapdis, 4 MG PO ONCE for 5 Days, TAB Prov:YUDI VALADEZ MD 03/23/18 Diet: Regular Activity: As Tolerated Special Instructions: we will call you in about 10 days with biopsy results. STERLING GARCIA Jun 01, 2018 08:05
[2018-06-01] MEDS ORDERED: KETAMINE HCL 500 MG/10 ML VIAL ONE (08:08)
--- NOTE | 2018-06-01 09:55 | NUR ---
0757- PT. RECEIVED FROM OR VIA STRETCHER WITH THE SIDERAILS UP. SBAR RECEIVED FROM KERLINE LONG AND DR. SÁNCHEZ. PT. SLEEPING BUT AROUSABLE ON CALLING. 0805- TURNED PT. O2 DOWN TO 3LPM OXY MASK. 0816- TURNED PT O2 DOWN TO 2LPM NC. 0832- PT. GIVEN ICE WATER. 0850-PT. GIVEN PUDDING. 0909- PT. STATES SHE IS READY TO GO HOME SO ORTHOSTATICS PREFORMED. 0915- PT. TO THE BATHROOM. 0920- PT. GETTING DRESSED. 0925- DISCHARGE INSTRUCTIONS WITH PT. 0930- IV TAKEN OUT. 0940- PT. ACCOMPANIED TO [employer] VEHICLE VIA WHEELCHAIR.
== END 2018-06-01 09:40 | disposition home or self-care (01) ==
LOC: OR 01:01
PROVIDERS: ATTEND Surgery
DX: K29.70 Gastritis, unspecified, without bleeding (principal); I10 Essential (primary) hypertension; J44.9 Chronic obstructive pulmonary disease, unspecified; K21.9 Gastro-esophageal reflux disease without esophagitis; E03.9 Hypothyroidism, unspecified; F17.200 Nicotine dependence, unspecified, uncomplicated
CPT/HCPCS: 43239; 43249; 87077; 88305; 88313; 88344; 94640; J2250; J3490; J7620; C1726

== ENCOUNTER → 2018-06-02 | Outpatient (CLI) | payer MEDICARE, BC ==
[2018-03-25 11:42] VITALS: BMI 48.5
== END ==
LOC: LAB 09:15
PROVIDERS: ATTEND Emergency Medicine
DX: I10 Essential (primary) hypertension (principal)
CPT/HCPCS: 36415; 82310; 82374; 82435; 82565; 82947; 84132; 84295; 84520

== ENCOUNTER 2018-06-11 20:23 | Emergency (ER) | payer MEDICARE, BC ==
[2018-03-25 11:42] VITALS: Wt 120.2 kg
[2018-06-11] MEDS ORDERED: DEXAMETHASONE SOD PHOS 10MG/ML IVP ONE (20:35)
--- NOTE | 2018-06-11 20:35 | ER Report ---
History and Physical Time Seen By MD: 20:35 Hx. of Stated Complaint: PT REPORTS SOB, NO RELIEF WITH NEBULIZERS AT HOME, AND TIGHTNESS IN CHEST, "CAN'T GET ANYTHING BEHIND THE COUGH" HPI/ROS CHIEF COMPLAINT: Cough, shortness breath since this morning HISTORY OF PRESENT ILLNESS: Patient is a 52-year-old female here with complaints of cough, shortness breath, wheezing since this morning in spite of taking nebulizer treatments. Patient reports that she does actively smoke. She has been having fevers and chills subjectively. Patient is nontoxic in appearance, in no acute distress. REVIEW OF SYSTEMS: Constitutional: + fever, + chills. Eyes: No discharge. ENT: No sore throat. Cardiovascular: No chest pain, no palpitations. Respiratory: + cough, + shortness of breath. Gastrointestinal: No abdominal pain, no vomiting. Genitourinary: No hematuria. Musculoskeletal: No back pain. Skin: No rashes. Neurological: No headache. Allergies: Coded Allergies: aripiprazole (Verified Allergy, Intermediate, RASH, 06/11/18) lithium (Verified Allergy, Intermediate, RASH, 06/11/18) lurasidone (Verified Allergy, Intermediate, 06/11/18) quetiapine (Verified Allergy, Intermediate, DIZZY, 06/11/18) DIzzy varenicline (Verified Allergy, Intermediate, SWELLING, 06/11/18) ciprofloxacin (Verified Allergy, Mild, N/V, 06/11/18) sulfamethoxazole (Verified Allergy, Mild, HIVES, 06/11/18) topiramate (Verified Allergy, Mild, UPSET STOMACH, 06/11/18) Upset stomach trimethoprim (Verified Allergy, Mild, HIVES, 06/11/18) metoprolol (Unverified Allergy, Unknown, 06/11/18) dyspnea haloperidol (Verified Adverse Reaction, Severe, DYSTONIC REACTION, 06/11/18) adhesive tape (Verified Adverse Reaction, Mild, RASH, 06/11/18) fluticasone (Verified Adverse Reaction, Mild, THRUSH, 06/11/18) salmeterol (Verified Adverse Reaction, Mild, THRUSH, 06/11/18) Home Meds Active Scripts Famotidine (FAMOTIDINE) 20 Mg Tablet, 20 MG PO QDAY, #90 TAB 3 Refills Prov:SKINNY EMMANUEL MD 05/27/18 Pantoprazole Sodium (PROTONIX) 40 Mg , 40 MG PO QDAY, #30 PACK 0 Refills Prov:GARY RODRIGUEZ MD 05/24/18 Hydrochlorothiazide (HYDROCHLOROTHIAZIDE) 25 Mg Tablet, 1 TAB PO QDAY, #30 TAB 11 Refills Prov:SKINNY EMMANUEL MD 05/05/18 Azithromycin (ZITHROMAX) 250 Mg Tablet, 1 TAB PO DIRECTED, #36 TAB 3 Refills Take three times a week on , Wednesdays and Fridays. Prov:SKINNY EMMANUEL MD 04/28/18 Tiotropium [place] (SPIRIVA) 18 Mcg/Cap Inh, 2 PUFF INH DAILY, #1 INH 11 Refills Prov:SKINNY EMMANUEL MD 05/14/17 Reported Medications Fluticasone/Vilanterol (Breo Ellipta 200-25 Mcg INH) 1 Each Blst.w.dev, 1 PUFF INH QDAY 05/28/18 Oxygen (OXYGEN) Inha, 2 L INH QDAY, L 01/09/18 Bupropion Hcl (WELLBUTRIN SR) 150 Mg Tablet.er, 150 MG PO QDAY, TAB 11/11/17 Escitalopram Oxalate (ESCITALOPRAM OXALATE) 20 Mg Tablet, 20 MG PO QDAY 11/11/17 Pramipexole Di-Hcl (MIRAPEX) 1 Mg Tablet, 1 MG PO DAILY 11/11/17 Cholecalciferol (Vitamin D3) (VITAMIN D3) 1,000 Unit Tablet, 1000 UNIT PO QDAY, TAB 06/20/17 Hydroxyzine Pamoate (HYDROXYZINE PAMOATE) 25 Mg Capsule, 25 TAB PO Q8H PRN for ANXIETY/INSOMNIA 01/27/17 Albuterol Sulfate 90 Mcg/Act (PROAIR HFA 90 MCG/ACT) 8.5 Gm Hfa.aer.ad, 2 PUFF IH Q4-6H PRN for DYSPNEA, INHALER 01/27/17 Multivitamin (MULTIVITAMINS) 1 Each Capsule, 1 EACH PO DAILY, CAPSULE 12/08/16 Discontinued Scripts Prednisone (PREDNISONE) 20 Mg Tablet, 60 MG PO QDAY, #12 TAB 0 Refills Prov:GARY RODRIGUEZ MD 05/24/18 Hx Smoking: Yes (4-5 CIGS QDAY. SMOKED 30+ YRS.) Smoking Status: Current: Every Day Smoker Exposure to Second Hand Smoke?: Yes Hx Substance Use Disorder: No Hx Alcohol Use: Yes Constitutional Vital Sign - Last 24 Hours 06/11/18 06/11/18 06/11/18 06/11/18 20:25 20:35 20:43 20:44 Temp 98.1 Pulse 87 77 Resp 18 16 B/P (MAP) 130/68 Pulse Ox 93 95 O2 Delivery Nasal Cannula Nasal Cannula O2 Flow Rate 2.0 2.0 06/11/18 06/11/18 06/11/18 21:03 21:20 21:30 Pulse 80 78 76 Resp 16 16 16 Physical Exam General Appearance: The patient is alert, has no immediate need for airway protection and no signs of toxicity. NAD Eyes: Pupils equal and round no pallor or injection. ENT, Mouth: Mucous membranes are moist. Respiratory: + diffuse wheezing b/l, + non productive cough Cardiovascular: Regular rate and rhythm. [ ] Gastrointestinal: Abdomen is soft and non tender, no masses, bowel sounds no rmal. Neurological: No focal deficits Skin: Warm and dry, no rashes. Musculoskeletal: Neck is supple non tender. Extremities are nontender, nonswollen and have full range of motion. DIFFERENTIAL DIAGNOSIS: After history and physical exam differential diagnosis was considered for shortness of breath including but not limited to pulmonary infectious process, COPD, asthma, pulmonary embolus and congestive heart failure. Medical Decision Making Data Points Result Diagram: 06/11/18203706/11/182037 Laboratory Hematology Test 06/11/18 20:38 Red Blood Count 4.54 M/uL (4.17-5.56) Mean Corpuscular Volume 89.8 fL (80.0-96.0) Mean Corpuscular Hemoglobin 31.0 pg (26.0-33.0) Mean Corpuscular Hemoglobin Concent 34.5 g/dL (32.0-36.0) Red Cell Distribution Width 13.0 % (11.5-14.5) Mean Platelet Volume 9.1 fL (7.2-11.1) Neutrophils (%) (Auto) 65.0 % (39.4-72.5) Lymphocytes (%) (Auto) 24.5 % (17.6-49.6) Monocytes (%) (Auto) 8.9 % (4.1-12.4) Eosinophils (%) (Auto) 0.9 % (0.4-6.7) Basophils (%) (Auto) 0.7 % (0.3-1.4) Nucleated RBC Relative Count (auto) 0.1 /100WBC Neutrophils # (Auto) 4.4 K/uL (2.0-7.4) Lymphocytes # (Auto) 1.7 K/uL (1.3-3.6) Monocytes # (Auto) 0.6 K/uL (0.3-1.0) Eosinophils # (Auto) 0.1 K/uL (0.0-0.5) Basophils # (Auto) 0.0 K/uL (0.0-0.1) Nucleated RBC Absolute Count (auto) 0.00 K/uL Sodium Level 137 mmol/L (137-145) Potassium Level 3.2 mmol/L (3.5-5.0) Chloride Level 95 mmol/L (98-107) Carbon Dioxide Level 35 mmol/L (22-31) Blood Urea Nitrogen 17 mg/dl (7-18) Creatinine 1.20 mg/dl (0.52-1.04) Glomerular Filtration Rate Calc 46.8 Random Glucose 105 mg/dl (75-110) Calcium Level 9.4 mg/dl (8.4-10.2) Total Bilirubin 0.2 mg/dl (0.2-1.3) Aspartate Amino Transf (AST/SGOT) 16 U/L (0-35) Alanine Aminotransferase (ALT/SGPT) 21 U/L (0-56) Alkaline Phosphatase 99 U/L (0-126) B-Type Natriuretic Peptide 7 pg/ml (0-100) Total Protein 7.1 g/dl (6.3-8.2) Albumin 4.2 g/dl (3.5-5.0) Influenza Virus Type A (PCR) Negative (NEGATIVE) Influenza Virus Type B (PCR) Negative (NEGATIVE) Chemistry Test 06/11/18 20:38 White Blood Count 6.8 k/uL (4.5-11.0) Red Blood Count 4.54 M/uL (4.17-5.56) Hemoglobin 14.1 g/dL (12.0-16.0) Hematocrit 40.8 % (34.0-47.0) Mean Corpuscular Volume 89.8 fL (80.0-96.0) Mean Corpuscular Hemoglobin 31.0 pg (26.0-33.0) Mean Corpuscular Hemoglobin Concent 34.5 g/dL (32.0-36.0) Red Cell Distribution Width 13.0 % (11.5-14.5) Platelet Count 229 K/uL (150-450) Mean Platelet Volume 9.1 fL (7.2-11.1) Neutrophils (%) (Auto) 65.0 % (39.4-72.5) Lymphocytes (%) (Auto) 24.5 % (17.6-49.6) Monocytes (%) (Auto) 8.9 % (4.1-12.4) Eosinophils (%) (Auto) 0.9 % (0.4-6.7) Basophils (%) (Auto) 0.7 % (0.3-1.4) Nucleated RBC Relative Count (auto) 0.1 /100WBC Neutrophils # (Auto) 4.4 K/uL (2.0-7.4) Lymphocytes # (Auto) 1.7 K/uL (1.3-3.6) Monocytes # (Auto) 0.6 K/uL (0.3-1.0) Eosinophils # (Auto) 0.1 K/uL (0.0-0.5) Basophils # (Auto) 0.0 K/uL (0.0-0.1) Nucleated RBC Absolute Count (auto) 0.00 K/uL Glomerular Filtration Rate Calc 46.8 Calcium Level 9.4 mg/dl (8.4-10.2) Total Bilirubin 0.2 mg/dl (0.2-1.3) Aspartate Amino Transf (AST/SGOT) 16 U/L (0-35) Alanine Aminotransferase (ALT/SGPT) 21 U/L (0-56) Alkaline Phosphatase 99 U/L (0-126) B-Type Natriuretic Peptide 7 pg/ml (0-100) Total Protein 7.1 g/dl (6.3-8.2) Albumin 4.2 g/dl (3.5-5.0) Influenza Virus Type A (PCR) Negative (NEGATIVE) Influenza Virus Type B (PCR) Negative (NEGATIVE) EKG/Imaging Imaging PATIENT NAME: Natividad Loaiza : 1965 MR: [id number] V: [id number] EXAM DATE: ORDERING PHYSICIAN: KERI CLARKE TECHNOLOGIST: Location: [facility] Patient: Natividad Loaiza : 1965 Visit/Account:[id number] Date of Sevice: 06/11/2018 Exam type: CHEST PA LAT History: Respiratory distress Comparison: 04/26/2018. Findings: Both lungs are well-expanded. Mild thickening of the minor fissure is noted but there is no focal infiltrate, pleural effusion or pneumothorax. Heart size is upper limits of normal. The osseous structures demonstrate a mild scoliosis. IMPRESSION: 1. No acute cardiopulmonary disease. ED Course/Re-evaluation ED Course Patient is a 52-year-old female here with complaints of cough, shortness of breath, wheezing. Chest x-ray showed no acute consolidation. Influenza was negative. Patient was given scripts for prednisone burst therapy, Z-Raimundo. Patient was given 2 nebs, Decadron. Patient had no leukocytosis. Close PCP follow-up recommended, return precautions provided. Decision to Disposition Date: Jun 11, 2018 Decision to Disposition Time: 21:34 Depart Departure Latest Vital Signs Vital Signs Date Time Temp Pulse Resp B/P (MAP) Pulse Ox O2 Delivery O2 Flow Rate FiO2 06/11/18 21:30 76 16 06/11/18 20:43 95 Nasal Cannula 2.0 06/11/18 20:25 98.1 130/68 Core Temperature (Celsius): 37.23 Impression: Primary Impression: COPD exacerbation Condition: Improved Disposition: HOME OR SELF-CARE Referrals: SKINNY EMMANUEL MD (PCP) New Scripts Azithromycin (Z-PACK) 250 Mg Tablet 0 PO QDAY, #6 DOSE-PACK Prov: KERI CLARKE DO 06/11/18 Prednisone (PREDNISONE) 50 Mg Tablet 50 MG PO QDAY for 5 Days, #5 TAB Prov: EKRI CLARKE S DO 06/11/18 Patient Instructions: COPD (Chronic Obstructive Pulmonary Disease) (ED) Additional Instructions: Please continue your nebulizer treatments as prescribed. Please take prednisone 50 mg daily for 5 days, azithromycin as prescribed. Please follow-up with your family doctor in the next 24-48 hours. Please return if you develop worsening shortness breath, chest pains, fevers, nausea, vomiting. KERI CLARKE DO Jun 11, 2018 20:35
[2018-06-11] MEDS: ALBUTEROL/IPRATROPIUM 3 ML NEB NEB SCH ×3 (20:43→21:21)
[2018-06-11 20:46] LABS: PLATELET COUNT, AUTOMATED 229 K/uL (150-450)
--- NOTE | 2018-06-11 21:26 | RADIOLOGY IMAGING REPORT ---
FACILITY: [facility] PATIENT NAME: Natividad Loaiza : 1965 MR: [id number] V: [id number] EXAM DATE: ORDERING PHYSICIAN: KERI CLARKE [place]CHNOLOGIST: [place] [facility] [place] Natividad Loaiza : 1965 Visit/Account:[id number] Date of Sevice: 06/11/2018 Exam type: CHEST PA LAT History: Respiratory distress Comparison: 04/26/2018. Findings: Both lungs are well-expanded. Mild thickening of the minor fissure is noted but there is no focal in filtrate, pleural effusion or pneumothorax. Heart size is upper limits of normal. The osseous structures demonstrate a mild scoliosis. IMPRESSION: 1. No acute cardiopulmonary disease. Report Dictated By: Gilberto Post MD at 06/11/2018 9:20 PM Report E-Signed By: Gilberto Post MD at 06/11/2018 9:21 PM WSN:[email or web address]
[2018-06-11 21:30] VITALS: BP 127/75
[2018-06-11] MEDS ORDERED: AZIT-17 PO (21:37)
[2018-06-11] MEDS ORDERED: PRED50TA22 PO (21:37)
== END 2018-06-11 21:46 | disposition home or self-care (01) ==
LOC: ER 20:36
DX: J44.1 Chronic obstructive pulmonary disease with (acute) exacerbation (principal); F17.210 Nicotine dependence, cigarettes, uncomplicated
CPT/HCPCS: 71046; 83880; 85025; 87502; 96374; 99284; J1100; J7620; 82040; 82247; 82310; 82374; 82435; 82565; 82947; 84075; 84132; 84155; 84295; 84450; 84460; 84520

== ENCOUNTER 2018-06-16 13:40 | Emergency (ER) | payer MEDICARE, BC ==
[2018-03-25 11:42] VITALS: Wt 120.2 kg
[~2018-06-16 13:40] MED LIST changes: +AZIT-17 PO; +PRED50TA22 PO
[2018-06-16] MEDS ORDERED: predniSONE 20 MG TAB PO ONE (13:55)
[2018-06-16] MEDS ORDERED: NS(*) 0.9% 500 ML BAG 500 ML IV ONE (13:55)
[2018-06-16] MEDS ORDERED: ALBUTEROL/IPRATROPIUM 3 ML NEB NEB ONE ×2 (13:55→14:40)
--- NOTE | 2018-06-16 14:02 | ER Report ---
History and Physical Time Seen By MD: 13:51 Hx. of Stated Complaint: PATIENT REPORTS SHORTNESS OF BREATH SINCE THIS MORNING. TOOK A DUONEB AND ALBUTEROL INHALER AT HOME AND DID NOT HELP HPI/ROS CHIEF COMPLAINT: Shortness of breath HISTORY OF PRESENT ILLNESS: This is a 52-year-old female, well-known to the emergency Department presents with recurrent shortness of breath. Patient has a history of COPD, continuous use of oxygen, was recently seen and evaluated in the emergency department, placed on prednisone, she takes azithromycin 3 times a week on a regular basis, however with the last visit to the emergency department the increased dosing and now she is tapered down to her "normal doses". Patient states that she was sitting in her house became short of breath, tried her albuterol nebulizers with little to no relief, she also states that now she is having midsternal chest pain. No diaphoresis. No visual changes. No rashes, no headaches. No nausea or vomiting. Patient continues to smoke on a regular basis. REVIEW OF SYSTEMS: Constitutional: As above. Eyes: No discharge. ENT: No sore throat. Cardiovascular: As above. Respiratory: As above. Gastrointestinal: No abdominal pain, no vomiting. Genitourinary: No hematuria. Musculoskeletal: No back pain. Skin: No rashes. Neurological: No headache. Allergies: Coded Allergies: aripiprazole (Verified Allergy, Intermediate, RASH, 06/11/18) lithium (Verified Allergy, Intermediate, RASH, 06/11/18) lurasidone (Verified Allergy, Intermediate, 06/11/18) quetiapine (Verified Allergy, Intermediate, DIZZY, 06/11/18) DIzzy varenicline (Verified Allergy, Intermediate, SWELLING, 06/11/18) ciprofloxacin (Verified Allergy, Mild, N/V, 06/11/18) sulfamethoxazole (Verified Allergy, Mild, HIVES, 06/11/18) topiramate (Verified Allergy, Mild, UPSET STOMACH, 06/11/18) Upset stomach trimethoprim (Verified Allergy, Mild, HIVES, 06/11/18) metoprolol (Unverified Allergy, Unknown, 06/11/18) dyspnea haloperidol (Verified Adverse Reaction, Severe, DYSTONIC REACTION, 06/11/18) adhesive tape (Verified Adverse Reaction, Mild, RASH, 06/11/18) fluticasone (Verified Adverse Reaction, Mild, THRUSH, 06/11/18) salmeterol (Verified Adverse Reaction, Mild, THRUSH, 06/11/18) Home Meds Active Scripts Azithromycin (Z-PACK) 250 Mg Tablet, 0 PO QDAY, #6 DOSE-PACK Prov:KERI CLARKE DO 06/11/18 Prednisone (PREDNISONE) 50 Mg Tablet, 50 MG PO QDAY for 5 Days, #5 TAB Prov:CLARKEKERI Randy DO 06/11/18 Famotidine (FAMOTIDINE) 20 Mg Tablet, 20 MG PO QDAY, #90 TAB 3 Refills Prov:SKINNY EMMANUEL MD 05/27/18 Pantoprazole Sodium (PROTONIX) 40 Mg Granpkt.dr, 40 MG PO QDAY, #30 PACK 0 Refills Prov:GARY RODRIGUEZ MD 05/24/18 Hydrochlorothiazide (HYDROCHLOROTHIAZIDE) 25 Mg Tablet, 1 TAB PO QDAY, #30 TAB 11 Refills Prov:SKINNY EMMANUEL MD 05/05/18 Azithromycin (ZITHROMAX) 250 Mg Tablet, 1 TAB PO DIRECTED, #36 TAB 3 Refills Take three times a week on , Wednesdays and Fridays. Prov:SKINNY EMMANUEL MD 04/28/18 Tiotropium [place] (SPIRIVA) 18 Mcg/Cap Inh, 2 PUFF INH DAILY, #1 INH 11 Refills Prov:SKINNY EMMANUEL MD 05/14/17 Reported Medications Fluticasone/Vilanterol (Breo Ellipta 200-25 Mcg INH) 1 Each Blst.w.dev, 1 PUFF INH QDAY 05/28/18 Oxygen (OXYGEN) Inha, 2 L INH QDAY, L 01/09/18 Bupropion Hcl (WELLBUTRIN SR) 150 Mg Tablet.er, 150 MG PO QDAY, TAB 11/11/17 Escitalopram Oxalate (ESCITALOPRAM OXALATE) 20 Mg Tablet, 20 MG PO QDAY 11/11/17 Pramipexole Di-Hcl (MIRAPEX) 1 Mg Tablet, 1 MG PO DAILY 11/11/17 Cholecalciferol (Vitamin D3) (VITAMIN D3) 1,000 Unit Tablet, 1000 UNIT PO QDAY, TAB 06/20/17 Hydroxyzine Pamoate (HYDROXYZINE PAMOATE) 25 Mg Capsule, 25 TAB PO Q8H PRN for ANXIETY/INSOMNIA 01/27/17 Albuterol Sulfate 90 Mcg/Act (PROAIR HFA 90 MCG/ACT) 8.5 Gm Hfa.aer.ad, 2 PUFF IH Q4-6H PRN for DYSPNEA, INHALER 01/27/17 Multivitamin (MULTIVITAMINS) 1 Each Capsule, 1 EACH PO DAILY, CAPSULE 12/08/16 Past Medical/Surgical History The patient has a past medical and surgical history of "scar tissue on brain, headaches, angina, hypertension, COPD, continues use of oxygen, GERD, gallbladder disease, cholecystectomy, restless leg syndrome, arthritis, right wrist fracture, left finger fracture, wears dentures, chronic back pain, wears glasses, hard of hearing, depression, anxiety, left breast biopsy, shoulder surgery, tonsillectomy. Reviewed Nurses Notes: Yes Hx Smoking: Yes (4-5 CIGS QDAY. SMOKED 30+ YRS.) Smoking Status: Current: Every Day Smoker Exposure to Second Hand Smoke?: Yes Hx Substance Use Disorder: No Hx Alcohol Use: Yes Constitutional Vital Sign - Last 24 Hours 06/16/18 06/16/18 06/16/18 06/16/18 13:40 13:45 13:46 14:00 Temp 98.0 Pulse ??? 95 89 Resp 18 B/P (MAP) 177/105 (129) 177/105 172/103 (126) Pulse Ox 93 93 O2 Delivery Nasal Cannula 06/16/18 06/16/18 06/16/18 06/16/18 14:04 14:04 14:06 14:10 Pulse 79 84 Resp 18 18 Pulse Ox 93 O2 Delivery Nasal Cannula O2 Flow Rate 2.0 2.0 06/16/18 06/16/18 06/16/18 06/16/18 14:20 14:30 14:40 14:46 Pulse 87 85 Resp 21 17 B/P (MAP) 142/90 (107) Pulse Ox 91 92 91 O2 Delivery Nasal Cannula O2 Flow Rate 2.0 06/16/18 06/16/18 06/16/18 06/16/18 14:46 14:54 15:00 15:20 Pulse 82 83 86 90 Resp 18 18 18 21 B/P (MAP) 145/86 (105) Pulse Ox 91 90 Physical Exam General Appearance: The patient is alert, has no immediate need for airway protection and no signs of toxicity. Eyes: Pupils equal and round no pallor or injection. ENT, Mouth: Mucous membranes are moist. Respiratory: No retractions, diminished lung sounds on the right, no inspiratory or extremity wheezes. Cardiovascular: Regular rate and rhythm, distant, no murmurs, clicks or rubs. Gastrointestinal: Abdomen is soft and non tender, no masses, bowel sounds normal. Neurological: Alert and oriented 4. Moving all extremities. Following all commands. No focal neuro deficits. Skin: Warm and dry, no rashes. Musculoskeletal: Neck is supple non tender. Extremities are nontender, nonswollen and have full range of motion. DIFFERENTIAL DIAGNOSIS: After history and physical exam differential diagnosis was considered for shortness of breath including but not limited to pulmonary infectious process, COPD, asthma, pulmonary embolus and congestive heart failure. Medical Decision Making Data Points Result Diagram: 06/16/18 1403 06/16/18 1403 Laboratory Hematology Test 06/16/18 14:03 Red Blood Count 4.57 M/uL (4.17-5.56) Mean Corpuscular Volume 90.1 fL (80.0-96.0) Mean Corpuscular Hemoglobin 31.4 pg (26.0-33.0) Mean Corpuscular Hemoglobin Concent 34.9 g/dL (32.0-36.0) Red Cell Distribution Width 13.0 % (11.5-14.5) Mean Platelet Volume 8.9 fL (7.2-11.1) Neutrophils (%) (Auto) 87.7 % (39.4-72.5) Lymphocytes (%) (Auto) 8.9 % (17.6-49.6) Monocytes (%) (Auto) 2.6 % (4.1-12.4) Eosinophils (%) (Auto) 0.4 % (0.4-6.7) Basophils (%) (Auto) 0.4 % (0.3-1.4) Nucleated RBC Relative Count (auto) 0.0 /100WBC Neutrophils # (Auto) 9.2 K/uL (2.0-7.4) Lymphocytes # (Auto) 0.9 K/uL (1.3-3.6) Monocytes # (Auto) 0.3 K/uL (0.3-1.0) Eosinophils # (Auto) 0.0 K/uL (0.0-0.5) Basophils # (Auto) 0.0 K/uL (0.0-0.1) Nucleated RBC Absolute Count (auto) 0.00 K/uL Sodium Level 137 mmol/L (137-145) Potassium Level 3.8 mmol/L (3.5-5.0) Chloride Level 98 mmol/L (98-107) Carbon Dioxide Level 31 mmol/L (22-31) Blood Urea Nitrogen 15 mg/dl (7-18) Creatinine 1.10 mg/dl (0.52-1.04) Glomerular Filtration Rate Calc 51.8 Random Glucose 120 mg/dl (75-110) Calcium Level 9.6 mg/dl (8.4-10.2) Total Bilirubin 0.2 mg/dl (0.2-1.3) Aspartate Amino Transf (AST/SGOT) 16 U/L (0-35) Alanine Aminotransferase (ALT/SGPT) 23 U/L (0-56) Alkaline Phosphatase 101 U/L (0-126) Troponin I < 0.012 ng/ml Total Protein 6.9 g/dl (6.3-8.2) Albumin 4.0 g/dl (3.5-5.0) Chemistry Test 06/16/18 14:03 White Blood Count 10.5 k/uL (4.5-11.0) Red Blood Count 4.57 M/uL (4.17-5.56) Hemoglobin 14.4 g/dL (12.0-16.0) Hematocrit 41.2 % (34.0-47.0) Mean Corpuscular Volume 90.1 fL (80.0-96.0) Mean Corpuscular Hemoglobin 31.4 pg (26.0-33.0) Mean Corpuscular Hemoglobin Concent 34.9 g/dL (32.0-36.0) Red Cell Distribution Width 13.0 % (11.5-14.5) Platelet Count 249 K/uL (150-450) Mean Platelet Volume 8.9 fL (7.2-11.1) Neutrophils (%) (Auto) 87.7 % (39.4-72.5) Lymphocytes (%) (Auto) 8.9 % (17.6-49.6) Monocytes (%) (Auto) 2.6 % (4.1-12.4) Eosinophils (%) (Auto) 0.4 % (0.4-6.7) Basophils (%) (Auto) 0.4 % (0.3-1.4) Nucleated RBC Relative Count (auto) 0.0 /100WBC Neutrophils # (Auto) 9.2 K/uL (2.0-7.4) Lymphocytes # (Auto) 0.9 K/uL (1.3-3.6) Monocytes # (Auto) 0.3 K/uL (0.3-1.0) Eosinophils # (Auto) 0.0 K/uL (0.0-0.5) Basophils # (Auto) 0.0 K/uL (0.0-0.1) Nucleated RBC Absolute Count (auto) 0.00 K/uL Glomerular Filtration Rate Calc 51.8 Calcium Level 9.6 mg/dl (8.4-10.2) Total Bilirubin 0.2 mg/dl (0.2-1.3) Aspartate Amino Transf (AST/SGOT) 16 U/L (0-35) Alanine Aminotransferase (ALT/SGPT) 23 U/L (0-56) Alkaline Phosphatase 101 U/L (0-126) Troponin I < 0.012 ng/ml Total Protein 6.9 g/dl (6.3-8.2) Albumin 4.0 g/dl (3.5-5.0) EKG/Imaging EKG Interpretation 12 lead EKG: Time of EKG 1404 Rhythm: Normal sinus rhythm, ventricular rate 79 BPM. [place]: normal QRS: normal ST segments: No ST depression or elevation identified. No significant changes from the 04/26/2018 EKG on her then positive flexion of T waves in V2, V3. Imaging Location: [facility] - [place] Patient: Natividad Loaiza : 1965 Visit/Account:[id number] Date of Sevice: 06/16/2018 CHEST PA LAT HISTORY: Respiratory distress. COMPARISON: 06/11/2018. FINDINGS: Lines/tubes: None. Lungs/pleura: Negative. Heart: Negative. Mediastinum: Negative. Bony structures/body wall: Negative. IMPRESSION: No acute cardiopulmonary process. Report Dictated By: Gerardo Bear MD at 06/16/2018 2:26 PM Report E-Signed By: Gerardo Bear MD at 06/16/2018 2:28 PM WSN:[id number] ED Course/Re-evaluation Clinical Indication for ER IV: Hydration, IV Access ED Course The patient was admitted to room. A history of his were obtained. Differential diagnoses were considered. An IV was started. A CBC, CMP were obtained. EKG showing no acute changes. A 500 mL normal saline bolus was given. Patient was given a DuoNeb 2. Patient had significant relief of her symptoms with the DuoNeb. She was also given 60 mg IV Solu-Medrol. Chest x-ray negative for any acute cardiopulmonary process. Lab studies unremarkable. I did review the results with the patient, I did tell her this is likely a COPD exacerbation, she is currently taking antibiotics and prednisone at home, I did give her 60 mg IV, I did tell her I want her to follow up with her primary care provider within the next 2-5 days for reevaluation. Patient exposed understanding and was discharged home. She was in agreement with this plan of care. Decision to Disposition Date: Jun 16, 2018 Decision to Disposition Time: 14:56 Depart Departure Latest Vital Signs Vital Signs Date Time Temp Pulse Resp B/P (MAP) Pulse Ox O2 Delivery O2 Flow Rate FiO2 06/16/18 15:20 90 21 90 06/16/18 15:00 145/86 (105) 06/16/18 14:46 Nasal Cannula 2.0 06/16/18 13:46 98.0 Core Temperature (Celsius): 37.23 Impression: Primary Impression: COPD (chronic obstructive pulmonary disease) Condition: Improved Disposition: HOME OR SELF-CARE Referrals: SKINNY EMMANUEL MD (PCP) 1 Week Patient Instructions: COPD (Chronic Obstructive Pulmonary Disease) (ED), Nutrition Guidelines for People with COPD (ED) Additional Instructions: No concerning findings on your labs, Xray or EKG today. We have given you two duo neb treatments as well as IV steroids. Continue taking your daily steroids and continue the antibiotics as prescribed. Please follow up with your PCP or knifer up within one week for reevaluati on. Use your nebulizer as needed. Drink plenty of water. Get plenty of rest. Return to the ED for any other concerns or worsening symptoms. Problem Qualifiers Primary Impression: COPD (chronic obstructive pulmonary disease) COPD type: COPD with acute exacerbation Qualified Codes: J44.1 - Chronic obstructive pulmonary disease with (acute) exacerbation GERARDO TODDP- Jun 16, 2018 14:02
--- NOTE | 2018-06-16 14:12 | EKG ---
FACILITY: [facility] PATIENT NAME: FLORENCIO CRUZ : [id number] MR: [id number] V: [id number] EXAM DATE: ORDERING PHYSICIAN: GUILLE TODD TECHNOLOGIST: Test Reason : Blood Pressure : / mmHG Vent. Rate : 079 BPM Atrial Rate : 079 BPM P-R Int : 136 ms QRS Dur : 080 ms QT Int : 396 ms P-R-T Axes : 067 044 060 degrees QTc Int : 454 ms Normal sinus rhythm Normal ECG When compared with ECG of 26-APR-2018 21:46, Nonspecific T wave abnormality, improved in Anterolateral leads Confirmed by STEFANI HERNANDEZ ([id number]) on 06/16/2018 7:15:58 PM Referred By: Confirmed By:STEFANI HERNANDEZ
[2018-06-16 14:14] LABS: PLATELET COUNT, AUTOMATED 249 K/uL (150-450)
--- NOTE | 2018-06-16 14:33 | RADIOLOGY IMAGING REPORT ---
FACILITY: [facility] - [place] PATIENT NAME: Natividad Loaiza : 1965 MR: [id number] V: [id number] EXAM DATE: ORDERING PHYSICIAN: GUILLE TODD TECHNOLOGIST: Location: [facility] - [place] Patient: Natividad Loaiza : 1965 Visit/Account:[id number] Date of Sevice: 06/16/2018 CHEST PA LAT HISTORY: Respiratory distress. COMPARISON: 06/11/2018. FINDINGS: Lines/tubes: None. Lungs/pleura: Negative. Heart: Negative. Mediastinum: Negative. Bony structures/body wall: Negative. IMPRESSION: No acute cardiopulmonary process. Report Dictated By: Guille Bear MD at 06/16/2018 2:26 PM Report E-Signed By: Guille Bear MD at 06/16/2018 2:28 PM WSN:[id number]
[2018-06-16 15:00] VITALS: BP 145/86
== END 2018-06-16 15:31 | disposition home or self-care (01) ==
LOC: ER 14:08
DX: J44.1 Chronic obstructive pulmonary disease with (acute) exacerbation (principal)
CPT/HCPCS: 71046; 84484; 85025; 93005; 94640; 96360; 99284; J7040; J7512; J7620; 49083; 82040; 82247; 82310; 82374; 82435; 82565; 82947; 84075; 84132; 84155; 84295; 84450; 84460; 84520

== ENCOUNTER 2018-06-29 04:06 | Emergency (ER) | payer MEDICARE, BC ==
[2018-03-25 11:42] VITALS: Wt 120.2 kg
--- NOTE | 2018-06-29 04:09 | ER Report ---
History and Physical Time Seen By MD: 04:08 HPI/ROS CHIEF COMPLAINT: Can't breathe HISTORY OF PRESENT ILLNESS: 52-year-old female with a history of COPD O2 dependent, still smoking 3 cigarettes per day. Seen by primary care yesterday, patient was seen with sinus symptoms. Single fever spiked. She's had no purulent discharge. She was discharged home after nebulizer treatment and her lungs cleared. She was advised to do frequent nebulizers for the next 24 hours. She's been doing that without improvement. Home. She is actually got worse. She's severely short breath and has gross expiratory wheezing on arrival. REVIEW OF SYSTEMS: Respiratory: As above Cardiovascular: No chest pain, no palpitations. Gastrointestinal: No vomiting, no abdominal pain. Musculoskeletal: No back pain. Allergies: Coded Allergies: aripiprazole (Verified Allergy, Intermediate, RASH, 06/29/18) lithium (Verified Allergy, Intermediate, RASH, 06/29/18) lurasidone (Verified Allergy, Intermediate, 06/29/18) quetiapine (Verified Allergy, Intermediate, DIZZY, 06/29/18) DIzzy varenicline (Verified Allergy, Intermediate, SWELLING, 06/29/18) ciprofloxacin (Verified Allergy, Mild, N/V, 06/29/18) sulfamethoxazole (Verified Allergy, Mild, HIVES, 06/29/18) topiramate (Verified Allergy, Mild, UPSET STOMACH, 06/29/18) Upset stomach trimethoprim (Verified Allergy, Mild, HIVES, 06/29/18) metoprolol (Unverified Allergy, Unknown, 06/29/18) dyspnea haloperidol (Verified Adverse Reaction, Severe, DYSTONIC REACTION, 06/29/18) adhesive tape (Verified Adverse Reaction, Mild, RASH, 06/29/18) fluticasone (Verified Adverse Reaction, Mild, THRUSH, 06/29/18) salmeterol (Verified Adverse Reaction, Mild, THRUSH, 06/29/18) Home Meds Active Scripts Famotidine (FAMOTIDINE) 20 Mg Tablet, 20 MG PO QDAY, #90 TAB 3 Refills Prov:SKINNY EMMANUEL MD 05/27/18 Hydrochlorothiazide (HYDROCHLOROTHIAZIDE) 25 Mg Tablet, 1 TAB PO QDAY, #30 TAB 11 Refills Prov:SKINNY EMMANUEL MD 05/05/18 Azithromycin (ZITHROMAX) 250 Mg Tablet, 1 TAB PO DIRECTED, #36 TAB 3 Refills Take three times a week on , Wednesdays and Fridays. Prov:SKINNY EMMANUEL MD 04/28/18 Tiotropium [place] (SPIRIVA) 18 Mcg/Cap Inh, 2 PUFF INH DAILY, #1 INH 11 Refills Prov:KSINNY EMMANUEL MD 05/14/17 Reported Medications Pantoprazole Sodium (PROTONIX) 40 Mg , 40 MG PO QDAY, PACK 06/29/18 Fluticasone/Vilanterol (Breo Ellipta 200-25 Mcg INH) 1 Each Blst.w.dev, 1 PUFF INH QDAY 05/28/18 Oxygen (OXYGEN) Inha, 2 L INH QDAY, L 01/09/18 Bupropion Hcl (WELLBUTRIN SR) 150 Mg Tablet.er, 150 MG PO QDAY, TAB 11/11/17 Escitalopram Oxalate (ESCITALOPRAM OXALATE) 20 Mg Tablet, 20 MG PO QDAY 11/11/17 Pramipexole Di-Hcl (MIRAPEX) 1 Mg Tablet, 1 MG PO DAILY 11/11/17 Cholecalciferol (Vitamin D3) (VITAMIN D3) 1,000 Unit Tablet, 1000 UNIT PO QDAY, TAB 06/20/17 Hydroxyzine Pamoate (HYDROXYZINE PAMOATE) 25 Mg Capsule, 25 TAB PO Q8H PRN for ANXIETY/INSOMNIA 01/27/17 Albuterol Sulfate 90 Mcg/Act (PROAIR HFA 90 MCG/ACT) 8.5 Gm Hfa.aer.ad, 2 PUFF IH Q4-6H PRN for DYSPNEA, INHALER 01/27/17 Multivitamin (MULTIVITAMINS) 1 Each Capsule, 1 EACH PO DAILY, CAPSULE 12/08/16 Discontinued Scripts Prednisone (PREDNISONE) 20 Mg Tablet, 20 MG PO QDAY for reduce lung inflammation for 7 Days 2 by mouth daily for 3 days, one by mouth daily for 3 days Prov:DENIA PUGA DO 06/29/18 Pantoprazole Sodium (PROTONIX) 40 Mg , 40 MG PO QDAY, #30 PACK 1 Refill Prov:SKINNY EMMANUEL MD 06/21/18 Past Medical/Surgical History Past Medical History Cardiovascular: Reports hx of: hypertension Respiratory: Reports hx of: COPD (Uses supplemental O2, 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, technology risk intern) sleep apnea (Uses BIPAP, since 04/2015) other respiratory history (Chronic repiratory failure with hypoxia) Gastrointestinal: Reports hx of: GERD Psychiatric: Reports hx of: depression psych hospitalization suicide attempt(s) (4 attempts, last attempt 01/26/17) other psychiatric history (somatic symptom disorder) 2 Endocrine: Reports hx of: hypothyroidism Past Surgical History HEENT: Reports hx of: tonsillectomy (06/19) Gastrointestinal: Reports hx of: cholecystectomy (12/18/2015) Reviewed Nurses Notes: Yes Old Medical Records Reviewed: Yes Hx Smoking: Yes (4-5 CIGS QDAY. SMOKED 30+ YRS.) Smoking Status: Current: Every Day Smoker Exposure to Second Hand Smoke?: Yes Hx Substance Use Disorder: No Hx Alcohol Use: Yes Constitutional Vital Sign - Last 24 Hours 06/29/18 06/29/18 06/29/18 06/29/18 04:12 04:16 04:20 04:20 Temp 98.3 Pulse 90 78 Resp 24 20 B/P (MAP) 158/81 Pulse Ox 95 95 O2 Delivery Room Air Nasal Cannula O2 Flow Rate 2.0 2.0 06/29/18 06/29/18 06/29/18 06/29/18 04:21 04:30 04:32 04:34 Pulse 98 82 82 Resp 29 20 20 B/P (MAP) 141/123 (129) Pulse Ox 98 06/29/18 06/29/18 06/29/18 06/29/18 04:51 05:00 05:06 05:21 Pulse 95 91 96 Resp 33 24 25 B/P (MAP) 132/72 (92) Pulse Ox 96 88 89 06/29/18 06/29/18 06/29/18 05:26 05:30 16:03 Temp 99.0 Pulse 96 108 Resp 27 22 B/P (MAP) 145/68 (93) 159/81 (107) Pulse Ox 88 94 O2 Delivery Nasal Cannula O2 Flow Rate 2.0 Physical Exam Vital signs stable, afebrile, pulse ox baseline on 2 L General Appearance: The patient is alert, has no immediate need for airway protection and no current signs of toxicity. Mild respiratory distress HEENT: Pupils equal and round no injection. TMs normal, oropharynx without redness or exudate Respiratory: Chest is non tender, gross extra Wheeler wheezing throughout all lung fountain, no Rales Cardiac: regular rate and rhythm Gastrointestinal: Abdomen is soft and non tender, no masses, bowel sounds normal. Musculoskeletal: Neck: Neck is supple and non tender. No JVD, no lymphadenopathy Extremities have full range of motion and are non tender. Skin: No rashes or lesions. DIFFERENTIAL DIAGNOSIS: After history and physical exam differential diagnosis was considered for shortness of breath including but not limited to pulmonary infectious process, COPD, asthma, pulmonary embolus and congestive heart failure. Medical Decision Making Data Points Result Diagram: 06/29/18 0416 06/29/18 0416 Laboratory Hematology Test 06/29/18 04:16 Red Blood Count 4.39 M/uL (4.17-5.56) Mean Corpuscular Volume 89.9 fL (80.0-96.0) Mean Corpuscular Hemoglobin 30.5 pg (26.0-33.0) Mean Corpuscular Hemoglobin Concent 33.9 g/dL (32.0-36.0) Red Cell Distribution Width 12.6 % (11.5-14.5) Mean Platelet Volume 9.7 fL (7.2-11.1) Neutrophils (%) (Auto) 66.9 % (39.4-72.5) Lymphocytes (%) (Auto) 21.6 % (17.6-49.6) Monocytes (%) (Auto) 9.8 % (4.1-12.4) Eosinophils (%) (Auto) 1.0 % (0.4-6.7) Basophils (%) (Auto) 0.7 % (0.3-1.4) Nucleated RBC Relative Count (auto) 0.0 /100WBC Neutrophils # (Auto) 4.5 K/uL (2.0-7.4) Lymphocytes # (Auto) 1.4 K/uL (1.3-3.6) Monocytes # (Auto) 0.7 K/uL (0.3-1.0) Eosinophils # (Auto) 0.1 K/uL (0.0-0.5) Basophils # (Auto) 0.0 K/uL (0.0-0.1) Nucleated RBC Absolute Count (auto) 0.00 K/uL Sodium Level 136 mmol/L (137-145) Potassium Level 3.2 mmol/L (3.5-5.0) Chloride Level 92 mmol/L (98-107) Carbon Dioxide Level 37 mmol/L (22-31) Blood Urea Nitrogen 13 mg/dl (7-18) Creatinine 1.10 mg/dl (0.52-1.04) Glomerular Filtration Rate Calc 51.8 Random Glucose 109 mg/dl (75-110) Calcium Level 9.8 mg/dl (8.4-10.2) Total Bilirubin 0.2 mg/dl (0.2-1.3) Aspartate Amino Transf (AST/SGOT) 15 U/L (0-35) Alanine Aminotransferase (ALT/SGPT) 21 U/L (0-56) Alkaline Phosphatase 99 U/L (0-126) Troponin I < 0.012 ng/ml B-Type Natriuretic Peptide 8 pg/ml (0-100) Total Protein 6.7 g/dl (6.3-8.2) Albumin 3.9 g/dl (3.5-5.0) Chemistry Test 06/29/18 04:16 White Blood Count 6.7 k/uL (4.5-11.0) Red Blood Count 4.39 M/uL (4.17-5.56) Hemoglobin 13.4 g/dL (12.0-16.0) Hematocrit 39.5 % (34.0-47.0) Mean Corpuscular Volume 89.9 fL (80.0-96.0) Mean Corpuscular Hemoglobin 30.5 pg (26.0-33.0) Mean Corpuscular Hemoglobin Concent 33.9 g/dL (32.0-36.0) Red Cell Distribution Width 12.6 % (11.5-14.5) Platelet Count 194 K/uL (150-450) Mean Platelet Volume 9.7 fL (7.2-11.1) Neutrophils (%) (Auto) 66.9 % (39.4-72.5) Lymphocytes (%) (Auto) 21.6 % (17.6-49.6) Monocytes (%) (Auto) 9.8 % (4.1-12.4) Eosinophils (%) (Auto) 1.0 % (0.4-6.7) Basophils (%) (Auto) 0.7 % (0.3-1.4) Nucleated RBC Relative Count (auto) 0.0 /100WBC Neutrophils # (Auto) 4.5 K/uL (2.0-7.4) Lymphocytes # (Auto) 1.4 K/uL (1.3-3.6) Monocytes # (Auto) 0.7 K/uL (0.3-1.0) Eosinophils # (Auto) 0.1 K/uL (0.0-0.5) Basophils # (Auto) 0.0 K/uL (0.0-0.1) Nucleated RBC Absolute Count (auto) 0.00 K/uL Glomerular Filtration Rate Calc 51.8 Calcium Level 9.8 mg/dl (8.4-10.2) Total Bilirubin 0.2 mg/dl (0.2-1.3) Aspartate Amino Transf (AST/SGOT) 15 U/L (0-35) Alanine Aminotransferase (ALT/SGPT) 21 U/L (0-56) Alkaline Phosphatase 99 U/L (0-126) Troponin I < 0.012 ng/ml B-Type Natriuretic Peptide 8 pg/ml (0-100) Total Protein 6.7 g/dl (6.3-8.2) Albumin 3.9 g/dl (3.5-5.0) EKG/Imaging EKG Interpretation 12 lead EKG: Rhythm: normal sinus rhythm Trade: normal [QRS:] normal ST segments: normal Imaging X-ray: Single view portable chest x-ray was obtained. I viewed the images jessica smith on the PACS system. My interpretation of the images is: No infiltrate, no effusion, normal mediastinum. The radiologist interpretation had no clinically significant variation from this interpretation. ED Course/Re-evaluation Clinical Indication for ER IV: IV Access ED Course Patient was admitted to an examination room. H&P was done. The differential diagnoses was considered. Patient with acute COPD exacerbation. She was treated by her primary care or with improvement in the office. She returns. They did not start steroids. Patient's treated with IV Solu-Medrol, a 1 hour nebulizer treatment. Patient has no fever, productive cough or elevated white blood cell count. I do not think she has bacterial infection. She'll be disc harged home on a prednisone taper. She is advised to continue frequent nebulizers. Follow up with primary care if unimproved in 3-5 days Decision to Disposition Date: Jun 29, 2018 Decision to Disposition Time: 05:29 Depart Departure Latest Vital Signs Vital Signs Date Time Temp Pulse Resp B/P (MAP) Pulse Ox O2 Delivery O2 Flow Rate FiO2 06/29/18 16:03 99.0 108 22 159/81 (107) 94 Nasal Cannula 2.0 Core Temperature (Celsius): 37.23 Impression: Primary Impression: COPD exacerbation Condition: Improved Disposition: HOME OR SELF-CARE Referrals: SKINNY EMMANUEL MD (PCP) Patient Instructions: COPD (Chronic Obstructive Pulmonary Disease) (ED) Additional Instructions: Follow-up with primary care if unimproved in 2-3 days DENIA PUGA DO Jun 29, 2018 04:08
[2018-06-29] MEDS ORDERED: ALBUTEROL/IPRATROPIUM 3 ML NEB NEB ONE (04:15)
[2018-06-29] MEDS ORDERED: methylPREDNIS SUCC 125 MG/2ML IVP ONE (04:15)
[2018-06-29] MEDS ORDERED: ALBUTEROL 2.5 MG/3 ML NEB NEB ONE (04:15)
[2018-06-29 04:29] LABS: PLATELET COUNT, AUTOMATED 194 K/uL (150-450)
--- NOTE | 2018-06-29 05:02 | RADIOLOGY IMAGING REPORT ---
FACILITY: [facility] [place] PATIENT NAME: Natividad Loaiza : 1965 MR: [id number] V: [id number] EXAM DATE: ORDERING PHYSICIAN: DENIA PUGA TECHNOLOGIST: Location: [facility] Patient: Natividad Loaiza : 1965 Visit/Account:[id number] Date of Sevice: 06/29/2018 AP CHEST 06/29/2018 4:11 AM. INDICATION: Respiratory distress. COMPARISON: 06/16/2018. FINDINGS: Lungs are well-expanded. There is no consolidation. No pleural effusion or pneumothorax. Heart size i s normal. IMPRESSION: No acute abnormality. Report Dictated By: Ramiro Rehman MD at 06/29/2018 4:56 AM Report E-Signed By: Ramiro Rehman MD at 06/29/2018 4:58 AM [id number]
--- NOTE | 2018-06-29 05:10 | EKG ---
FACILITY: [facility] PATIENT NAME: FLORENCIO CRUZ : [id number] MR: [id number] V: [id number] EXAM DATE: ORDERING PHYSICIAN: DENIA PUGA TECHNOLOGIST: ANITA Test Reason : DYSPNEA Blood Pressure : / mmHG Vent. Rate : 077 BPM Atrial Rate : 077 BPM P-R Int : 138 ms QRS Dur : 084 ms QT Int : 410 ms P-R-T Axes : 068 051 064 degrees QTc Int : 463 ms Normal sinus rhythm Normal ECG When compared with ECG of 16-JUN-2018 14:04, No significant change was found Confirmed by STEFANI HERNANDEZ ([id number]) on 06/29/2018 6:37:59 AM Referred By: SKINNY EMMANUEL Confirmed By:STEFANI HERNANDEZ
[2018-06-29] MEDS ORDERED: PRED20TA6 PO (05:32)
[2018-06-29 16:03] VITALS: BP 159/81
[2018-06-29] MEDS ORDERED: PANT40SU3 PO (16:29)
[2018-06-30] MEDS ORDERED: PRED20TA6 PO (12:18)
== END 2018-06-29 05:40 | disposition home or self-care (01) ==
LOC: ER 04:30
DX: J44.1 Chronic obstructive pulmonary disease with (acute) exacerbation (principal)
CPT/HCPCS: 71045; 83880; 84484; 85025; 93005; 94640; 96374; 99284; J2930; J7613; J7620; 82040; 82247; 82310; 82374; 82435; 82565; 82947; 84075; 84132; 84155; 84295; 84450; 84460; 84520

== ENCOUNTER 2018-06-29 11:59 | Inpatient (IN) | payer MEDICARE, BC ==
[~2018-06-29] VITALS: Ht 160 cm; Wt 120.2 kg
--- NOTE | 2018-06-29 12:11 | ER Report ---
History and Physical Time Seen By MD: 12:11 Hx. of Stated Complaint: PT REPORTS SOB AND TIGHTNESS IN CHEST, SEEN IN ER EARLIER TODAY. PT REPORTS HR OF 120 AT HOME, CALLED PCP AND TOLD TO COME TO ED. HPI/ROS CHIEF COMPLAINT: Shortness of breath and high heart rate HISTORY OF PRESENT ILLNESS:Patient is a 52 year old female presenting to the ED for complaints of a high heart rate and shortness of breath. Patient was di scharged from the ED earlier this morning. Patient states when she was here this am they gave her 3 duonebs and solumedrol through her IV. Patient went home and slept some. Patient states she then got up to do some chores. Her heart started to race and she felt jittery. Patient states that she called her PCP and was told to not take the prednisone and to return to the ED. REVIEW OF SYSTEMS: Constitutional: No fever or chills. Eyes: No discharge. No vision changes. ENT: No sore throat. No congestion. No hearing changes. Cardiovascular: No chest pain. No palpitations. Respiratory: +cough, some productive cough with yellow-green sputum. Gastrointestinal: No abdominal pain. No nausea or vomiting. No change in bowel movements. No blood in the stool or melena. Genitourinary: No dysuria. No hematuria. No frequency Skin: No rashes. Neurological: No numbness. No weakness. patient complains of "sinus pressure" Allergies: Coded Allergies: aripiprazole (Verified Allergy, Intermediate, RASH, 06/29/18) lithium (Verified Allergy, Intermediate, RASH, 06/29/18) lurasidone (Verified Allergy, Intermediate, 06/29/18) quetiapine (Verified Allergy, Intermediate, DIZZY, 06/29/18) DIzzy varenicline (Verified Allergy, Intermediate, SWELLING, 06/29/18) ciprofloxacin (Verified Allergy, Mild, N/V, 06/29/18) sulfamethoxazole (Verified Allergy, Mild, HIVES, 06/29/18) topiramate (Verified Allergy, Mild, UPSET STOMACH, 06/29/18) Upset stomach trimethoprim (Verified Allergy, Mild, HIVES, 06/29/18) metoprolol (Unverified Allergy, Unknown, 06/29/18) dyspnea haloperidol (Verified Adverse Reaction, Severe, DYSTONIC REACTION, 06/29/18) adhesive tape (Verified Adverse Reaction, Mild, RASH, 06/29/18) fluticasone (Verified Adverse Reaction, Mild, THRUSH, 06/29/18) salmeterol (Verified Adverse Reaction, Mild, THRUSH, 06/29/18) Home Meds Active Scripts Prednisone (PREDNISONE) 20 Mg Tablet, 40 MG PO QDAY for 5 Days, #10 TAB Prov:STEPHANIE DAVID DO 06/30/18 Famotidine (FAMOTIDINE) 20 Mg Tablet, 20 MG PO QDAY, #90 TAB 3 Refills Prov:SKINNY EMMANUEL MD 05/27/18 Hydrochlorothiazide (HYDROCHLOROTHIAZIDE) 25 Mg Tablet, 1 TAB PO QDAY, #30 TAB 11 Refills Prov:SKINNY EMMANUEL MD 05/05/18 Azithromycin (ZITHROMAX) 250 Mg Tablet, 1 TAB PO DIRECTED, #36 TAB 3 Refills Take three times a week on , Wednesdays and Fridays. Prov:SKINNY EMMANUEL MD 04/28/18 Tiotropium [place] (SPIRIVA) 18 Mcg/Cap Inh, 2 PUFF INH DAILY, #1 INH 11 Refills Prov:SKINNY EMMANUEL MD 05/14/17 Reported Medications Pantoprazole Sodium (PROTONIX) 40 Mg Granpkt.dr, 40 MG PO QDAY, PACK 06/29/18 Fluticasone/Vilanterol (Breo Ellipta 200-25 Mcg INH) 1 Each Blst.w.dev, 1 PUFF INH QDAY 05/28/18 Oxygen (OXYGEN) Inha, 2 L INH QDAY, L 01/09/18 Bupropion Hcl (WELLBUTRIN SR) 150 Mg Tablet.er, 150 MG PO QDAY, TAB 11/11/17 Escitalopram Oxalate (ESCITALOPRAM OXALATE) 20 Mg Tablet, 20 MG PO QDAY 11/11/17 Pramipexole Di-Hcl (MIRAPEX) 1 Mg Tablet, 1 MG PO DAILY 11/11/17 Cholecalciferol (Vitamin D3) (VITAMIN D3) 1,000 Unit Tablet, 1000 UNIT PO QDAY, TAB 06/20/17 Hydroxyzine Pamoate (HYDROXYZINE PAMOATE) 25 Mg Capsule, 25 TAB PO Q8H PRN for ANXIETY/INSOMNIA 01/27/17 Albuterol Sulfate 90 Mcg/Act (PROAIR HFA 90 MCG/ACT) 8.5 Gm Hfa.aer.ad, 2 PUFF IH Q4-6H PRN for DYSPNEA, INHALER 01/27/17 Multivitamin (MULTIVITAMINS) 1 Each Capsule, 1 EACH PO DAILY, CAPSULE 12/08/16 Discontinued Scripts Prednisone (PREDNISONE) 20 Mg Tablet, 20 MG PO QDAY for reduce lung inflammation for 7 Days 2 by mouth daily for 3 days, one by mouth daily for 3 days Prov:DENIA PUGA DO 06/29/18 Pantoprazole Sodium (PROTONIX) 40 Mg , 40 MG PO QDAY, #30 PACK 1 R efill Prov:SKINNY EMMANUEL MD 06/21/18 Past Medical/Surgical History Patient has a medical history of hypertension, COPD, chronic conspitation, GERD, restless legs, and depression/anxiety. Patient has a surgical history of cholestecomy, tonsillectomy, orthopedic surgeries on left hand, left shoulder, nad left small finger amputation. Hx Smoking: Yes (4-5 CIGS QDAY. SMOKED 30+ YRS.) Smoking Status: Current: Every Day Smoker Exposure to Second Hand Smoke?: Yes Hx Substance Use Disorder: No Hx Alcohol Use: Yes Constitutional Vital Sign - Last 24 Hours 06/29/18 06/29/18 06/29/18 06/29/18 12:05 12:05 12:15 12:16 Temp 97.2 Pulse 111 104 Resp 22 14 B/P (MAP) 134/76 134/76 (95) Pulse Ox 93 92 O2 Delivery Nasal Cannula O2 Flow Rate 2.0 06/29/18 06/29/18 06/29/18 06/29/18 12:30 12:36 12:36 12:42 Pulse 103 101 101 Resp 17 18 18 B/P (MAP) 131/79 (96) Pulse Ox 92 95 O2 Delivery Nasal Cannula O2 Flow Rate 2.0 06/29/18 06/29/18 06/29/18 06/29/18 12:45 13:00 13:15 13:30 Pulse 105 104 107 108 Resp 13 17 B/P (MAP) 114/68 (83) 128/72 (90) Pulse Ox 91 89 90 89 06/29/18 06/29/18 06/29/18 06/29/18 13:34 13:34 13:45 14:00 Pulse 105 108 108 Resp 16 14 25 B/P (MAP) 125/62 (83) Pulse Ox 92 95 96 O2 Delivery Nasal Cannula O2 Flow Rate 2.0 06/29/18 06/29/18 06/29/18 06/29/18 14:00 14:15 14:30 14:45 Pulse 109 111 114 111 Resp 16 12 18 17 B/P (MAP) 140/83 (102) Pulse Ox 92 92 92 06/29/18 06/29/18 06/29/18 15:00 15:15 15:30 Pulse 113 110 109 Resp 15 19 B/P (MAP) 135/79 (97) 114/101 (105) Pulse Ox 91 91 91 Physical Exam General Appearance: The patient is alert. No immediate need for airway protection. No acute distress. Non-toxic in appearance. Eyes: Pupils are equal, round. Reactive to light. No pallor, injection or icterus. Extraocular movements are intact. ENT: Mucous membranes are moist. Normal oral mucosa. Posterior oropharynx is normal. Normal nasal mucosa. Normal tympanic membranes slightly bulging. Neck: Supple and non tender. No lymphadenopathy. Respiratory: Breathing easily and unlabored. Wheezes are present throughout the lungs Cardiovascular: Regular rate and rhythm. No murmurs, gallops or rubs. Normal capillary refill. No edema. Gastrointestinal: Abdomen is soft and non tender. Nondistended. No rebound or guarding. No masses or organomegaly. Normal active bowel sounds. Neurological: Alert and oriented x3. Skin: Warm and dry. No rashes. Musculoskeletal: Extremities are nontender. Full range of motion. No tenderness in palpation of the cervical, thoracic and lumbar spine. DIFFERENTIAL DIAGNOSIS: After history and physical exam, differential diagnosis was considered for COPD exacerbation, influenza, and pneumonia. Medical Decision Making Data Points Result Diagram: 06/30/18 0528 06/30/18 0528 Laboratory Hematology Test 06/29/18 12:34 Influenza Virus Type A (PCR) Negative (NEGATIVE) Influenza Virus Type B (PCR) Negative (NEGATIVE) Chemistry Test 06/29/18 12:34 Influenza Virus Type A (PCR) Negative (NEGATIVE) Influenza Virus Type B (PCR) Negative (NEGATIVE) EKG/Imaging EKG Interpretation 12 lead EKG: Rhythm: Sinus tachycardia, rate 106 [place]: normal QRS: normal ST segments: Nonspecific no ST elevation or depression Imaging Reviewed the x-ray from earlier this morning, no acute disease noted ED Course/Re-evaluation Clinical Indication for ER IV: IV Access ED Course Gave DuoNeb and prednisone, wheezing increased and air movement improved. Tried an hour-long albuterol however the patient requested to stop this because of jitteriness and racing heart. Still wheezing significantly. Discussed case with our hospitalist who accepted the patient for admission. Decision to Disposition Date: Jun 29, 2018 Decision to Disposition Time: 15:00 Depart Departure Latest Vital Signs Vital Signs Date Time Temp Pulse Resp B/P (MAP) Pulse Ox O2 Delivery O2 Flow Rate FiO2 06/29/18 15:30 109 19 114/101 (105) 91 06/29/18 13:34 Nasal Cannula 2.0 06/29/18 12:05 97.2 Core Temperature (Celsius): 37.23 Impression: Primary Impression: COPD exacerbation Condition: Condition Unchanged Disposition: Admitted from ER Referrals: SKINNY EMMANUEL MD (PCP) New Scripts Prednisone (PREDNISONE) 20 Mg Tablet 40 MG PO QDAY for 5 Days, #10 TAB Prov: STEPHANIE DAVID DO 06/30/18 MICHAELGARY ZIMMERMAN MD Jun 29, 2018 12:11
[2018-06-29] MEDS ORDERED: predniSONE 20 MG TAB PO ONE (12:30)
[2018-06-29] MEDS ORDERED: ALBUTEROL/IPRATROPIUM 3 ML NEB NEB ONE (12:30)
[2018-06-29] MEDS ORDERED: ALBUTEROL 2.5 MG/3 ML NEB NEB ONE (13:35)
[2018-06-29] MEDS ORDERED: ALBUTEROL 2.5 MG/3 ML NEB ONE (13:39)
[2018-06-29] MEDS ORDERED: FLUSH 10 ML SYR IVP PRN (15:35)
[2018-06-29] MEDS ORDERED: hydrOXYzine PAMOATE 25 MG CAP PO PRN (15:35)
[2018-06-29] MEDS ORDERED: ALBUTEROL 2.5 MG/3 ML NEB NEB PRN (15:35)
[2018-06-29] MEDS ORDERED: ACETAMINOPHEN 325 MG TAB PO PRN (15:35)
--- NOTE | 2018-06-29 16:26 | History & Physical ---
History of Present Illness Chief Complaint Shortness of breath and wheezing History of Present Illness She is a 52 year old female who presented to the emergency department twice today for complaints of shortness of breath and wheezing. She did have reports of high heart rates, but she feels like she has had "too much albuterol" and she reports feeling "jittery and angry". She denies any chest pain. She is having COPD exacerbation, CXR done this morning in ER shows no acute processes. She was started on Prednisone in the emergency department and given nebulizers with minimal relief in symptoms. She was recommended for admission. History Problems: (1) COPD (chronic obstructive pulmonary disease) Status: Chronic (2) Hypertension Status: Chronic (3) RLS (restless legs syndrome) Status: Chronic (4) CKD (chronic kidney disease) stage 3, GFR 30-59 ml/min Status: Chronic Home Meds Active Scripts Prednisone (PREDNISONE) 20 Mg Tablet, 20 MG PO QDAY for reduce lung inflammation for 7 Days 2 by mouth daily for 3 days, one by mouth daily for 3 days Prov:DENIA PUGA DO 06/29/18 Pantoprazole Sodium (PROTONIX) 40 Mg Granpkt.dr, 40 MG PO QDAY, #30 PACK 1 Refill Prov:SKINNY EMMANUEL MD 06/21/18 Famotidine (FAMOTIDINE) 20 Mg Tablet, 20 MG PO QDAY, #90 TAB 3 Refills Prov:SKINNY EMMANUEL MD 05/27/18 Hydrochlorothiazide (HYDROCHLOROTHIAZIDE) 25 Mg Tablet, 1 TAB PO QDAY, #30 TAB 11 Refills Prov:SKINNY EMMANUEL MD 05/05/18 Azithromycin (ZITHROMAX) 250 Mg Tablet, 1 TAB PO DIRECTED, #36 TAB 3 Refills Take three times a week on , Wednesdays and Fridays. Prov:SKINNY EMMANUEL MD 04/28/18 Tiotropium [place] (SPIRIVA) 18 Mcg/Cap Inh, 2 PUFF INH DAILY, #1 INH 11 Refills Prov:SKINNY EMMANUEL MD 05/14/17 Reported Medications Fluticasone/Vilanterol (Breo Ellipta 200-25 Mcg INH) 1 Each Blst.w.dev, 1 PUFF INH QDAY 05/28/18 Oxygen (OXYGEN) Inha, 2 L INH QDAY, L 01/09/18 Bupropion Hcl (WELLBUTRIN SR) 150 Mg Tablet.er, 150 MG PO QDAY, TAB 11/11/17 Escitalopram Oxalate (ESCITALOPRAM OXALATE) 20 Mg Tablet, 20 MG PO QDAY 11/11/17 Pramipexole Di-Hcl (MIRAPEX) 1 Mg Tablet, 1 MG PO DAILY 11/11/17 Cholecalciferol (Vitamin D3) (VITAMIN D3) 1,000 Unit Tablet, 1000 UNIT PO QDAY, TAB 06/20/17 Hydroxyzine Pamoate (HYDROXYZINE PAMOATE) 25 Mg Capsule, 25 TAB PO Q8H PRN for ANXIETY/INSOMNIA 01/27/17 Albuterol Sulfate 90 Mcg/Act (PROAIR HFA 90 MCG/ACT) 8.5 Gm Hfa.aer.ad, 2 PUFF IH Q4-6H PRN for DYSPNEA, INHALER 01/27/17 Multivitamin (MULTIVITAMINS) 1 Each Capsule, 1 EACH PO DAILY, CAPSULE 12/08/16 Allergies: Coded Allergies: aripiprazole (Verified Allergy, Intermediate, RASH, 06/29/18) lithium (Verified Allergy, Intermediate, RASH, 06/29/18) lurasidone (Verified Allergy, Intermediate, 06/29/18) quetiapine (Verified Allergy, Intermediate, DIZZY, 06/29/18) DIzzy varenicline (Verified Allergy, Intermediate, SWELLING, 06/29/18) ciprofloxacin (Verified Allergy, Mild, N/V, 06/29/18) sulfamethoxazole (Verified Allergy, Mild, HIVES, 06/29/18) topiramate (Verified Allergy, Mild, UPSET STOMACH, 06/29/18) Upset stomach trimethoprim (Verified Allergy, Mild, HIVES, 06/29/18) metoprolol (Unverified Allergy, Unknown, 06/29/18) dyspnea haloperidol (Verified Adverse Reaction, Severe, DYSTONIC REACTION, ) adhesive tape (Verified Adverse Reaction, Mild, RASH, 06/29/18) fluticasone (Verified Adverse Reaction, Mild, THRUSH, 06/29/18) salmeterol (Verified Adverse Reaction, Mild, THRUSH, 06/29/18) Patient History: Breast cancer FH: alcohol abuse FATHER, , Age:82 MOTHER, , Age:66 FH: atrial fibrillation FATHER, , Age:82 FH: breast cancer MGM, Onset:80 PA PGM FH: hypertension FATHER, , Age:82 MOTHER, , Age:66 BROTHER OR SISTER FH: kidney failure FATHER, , Age:82 FH: leukemia BROTHER OR SISTER Hx Smoking: Yes (4-5 CIGS QDAY. 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 Review of Systems All Systems Reviewed/Normal: Yes, Except as Noted Respiratory: Shortness of Breath, Wheezing Exam Vital Signs Vital Signs Date Time Temp Pulse Resp B/P (MAP) Pulse Ox O2 Delivery O2 Flow Rate FiO2 06/29/18 15:00 113 15 135/79 (97) 91 06/29/18 13:34 Nasal Cannula 2.0 06/29/18 12:05 97.2 General Appearance: Alert, Awake, No Acute Distress, Afebrile Neuro: No Gross deficits Cardiovascular: Regular Rate and Rhythm Respiratory: No Respiratory Distress, Other (expiratory wheezes throughout) GI: Abd Soft and Non-Tender Extremities: Warm, Perfused; No Edema Psych: Alert & Oriented X3, Appropriate Mood & Affect Medical Decision Making Data Points Hematology Test 06/29/18 12:34 Influenza Virus Type A (PCR) Negative (NEGATIVE) Influenza Virus Type B (PCR) Negative (NEGATIVE) Chemistry Test 06/29/18 12:34 Influenza Virus Type A (PCR) Negative (NEGATIVE) Influenza Virus Type B (PCR) Negative (NEGATIVE) Item Value Date Time White Blood Count 6.7 k/uL 06/29/18 0416 Red Blood Count 4.39 M/uL 06/29/18 0416 Hemoglobin 13.4 g/dL 06/29/18 0416 Hematocrit 39.5 % 06/29/18 0416 Platelet Count 194 K/uL 06/29/18 0416 Sodium Level 136 mmol/L L 06/29/186 Potassium Level 3.2 mmol/L L 06/29/186 Chloride Level 92 mmol/L L 06/29/18 0416 Carbon Dioxide Level 37 mmol/L H 06/29/18 041 Blood Urea Nitrogen 13 mg/dl 06/29/186 Creatinine 1.10 mg/dl H 06/29/18415 Glomerular Filtration Rate Calc 51.8 06/29/18415 Whole Blood Glucose 110 mg/DL 03/28/159 Random Glucose 109 mg/dl 06/29/186 Aspartate Amino Transf (AST/SGOT) 15 U/L 06/29/18415 Alanine Aminotransferase (ALT/SGPT) 21 U/L 06/29/18415 Alkaline Phosphatase 99 U/L 06/29/18415 EKG / Imaging Imaging PATIENT NAME: Natividad Loaiza : 1965 MR: [id number] V: [id number] EXAM DATE: ORDERING PHYSICIAN: DENIA PUGA TECHNOLOGIST: Location: [facility] Patient: Natividad Loaiza : 1965 Visit/Account:[id number] Date of Sevice: 06/29/2018 AP CHEST 06/29/2018 4:11 AM. INDICATION: Respiratory distress. COMPARISON: 06/16/2018. FINDINGS: Lungs are well-expanded. There is no consolidation. No pleural effusion or pneumothorax. Heart size is normal. IMPRESSION: No acute abnormality. Report Dictated By: Ramiro Rehman MD at 06/29/2018 4:56 AM Report E-Signed By: Ramiro Rehman MD at 06/29/2018 4:58 AM [id number] Assessment and Plan Problems: (1) COPD exacerbation Status: Acute Assessment & Plan: She is on chronic treatment with Spiriva. She received oral steroids in the emergency department. Will switch to IV Solu-Medrol tomorrow morning. She will receive scheduled and prn nebulizers. Will use Xopenex as she feels jittery with albuterol. (2) Hypertension Status: Chronic Assessment & Plan: She is on chronic treatment with Hydrochlorothiazide. This has been restarted with hold parameters. (3) RLS (restless legs syndrome) Status: Chronic Assessment & Plan: She is on chronic treatment with Mirapex. Continue. (4) Persistent depressive disorder Status: Chronic Assessment & Plan: She is on chronic treatment with Escitalopram and Wellbutrin. Continue. (5) CKD (chronic kidney disease) stage 3, GFR 30-59 ml/min Status: Chronic Assessment & Plan: Creatinine ranges 1.1-1.3. Continue to monitor. Venous Thromboembolism Antithrombotics Is Pt On Any Antithrombotics?: Yes Exam Sepsis Risk: Possible Sepsis Risk Problem Qualifiers (1) Hypertension: Hypertension type: essential hypertension Qualified Codes: I10 - Essential (primary) hypertension SANTI RICE Jun 29, 2018 16:26
[2018-06-29] MEDS ORDERED: PANT40SU3 PO (16:29)
[2018-06-29] MEDS: LEVALBUTEROL 0.63 MG/3 ML NEB NEB SCH (17:55)
[2018-06-29] MEDS ORDERED: TIOTROPIUM BROM INH 18 MCG/CAP INH SCH (18:15)
[2018-06-29 18:57] VITALS: BP 119/58
[2018-06-29 18:59] VITALS: BP 156/81
[2018-06-29] MEDS ORDERED: PRAMIPEXOLE DIHYDROCHL 0.25 MG PO SCH (22:00)
[2018-06-30 00:22] VITALS: BP 140/82
[2018-06-30 02:54] VITALS: BP 128/73
[2018-06-30] MEDS: LEVALBUTEROL 0.63 MG/3 ML NEB NEB SCH ×2 (05:32→11:11)
[2018-06-30 06:21] LABS: PLATELET COUNT, AUTOMATED 195 K/uL (150-450)
--- NOTE | 2018-06-30 07:25 | EKG ---
FACILITY: [facility] - [place], [place] PATIENT NAME: FLORENCIO CRUZ : [id number] MR: [id number] V: [id number] EXAM DATE: ORDERING PHYSICIAN: GARY RODRIGUEZ TECHNOLOGIST: ROSS Erickson Reason : DYSPNEA Blood Pressure : / mmHG Vent. Rate : 106 BPM Atrial Rate : 106 BPM P-R Int : 150 ms QRS Dur : 080 ms QT Int : 372 ms P-R-T Axes : 067 045 066 degrees QTc Int : 494 ms Sinus tachycardia Otherwise normal ECG When compared with ECG of 29-JUN-2018 04:27, No significant change was found Confirmed by TIFFANIE MASSEY ([id number]) on 06/30/2018 7:32:07 AM Referred By: Confirmed By:TIFFANIE MASSEY
[2018-06-30] MEDS ORDERED: HYDROCHLOROTHIAZIDE 25 MG TAB PO SCH (09:00)
[2018-06-30] MEDS ORDERED: buPROPion SR 150 MG TABCR PO SCH (09:00)
[2018-06-30] MEDS ORDERED: PRAMIPEXOLE DIHYDROCHL 0.25 MG PO SCH (09:00)
[2018-06-30] MEDS ORDERED: methylPREDNIS SUCC 125 MG/2ML IVP SCH (09:00)
[2018-06-30] MEDS ORDERED: PANTOPRAZOLE SOD 40 MG TABEC PO SCH (09:00)
[2018-06-30] MEDS ORDERED: FAMOTIDINE 20 MG TAB PO SCH (09:00)
[2018-06-30] MEDS ORDERED: ESCITALOPRAM OXALATE 10 MG TAB PO SCH (09:00)
[2018-06-30 09:13] VITALS: BMI 46.9
[2018-06-30 09:16] VITALS: BP 135/75
[2018-06-30] MEDS: ENOXAPARIN 40 MG/0.4ML SYR SC SCH ×2 (10:12→10:14)
[2018-06-30] MEDS ORDERED: PRED20TA6 PO (12:18)
--- NOTE | 2018-06-30 12:23 | Hospitalist Depart ---
Discharge Summary Reason for Hosp/Final Diag: (1) COPD exacerbation Status: Acute Hospital Course & Plan: She is on chronic treatment with Spiriva. Started on PO steroid and will discharge on short course she is on home baseline 2L. (2) Hypertension Status: Chronic Hospital Course & Plan: She is on chronic treatment with Hydrochlorothiazide. (3) RLS (restless legs syndrome) Status: Chronic Hospital Course & Plan: She is on chronic treatment with Mirapex. Continue. (4) Persistent depressive disorder Status: Chronic Hospital Course & Plan: She is on chronic treatment with Escitalopram and Wellbutrin. Continue. (5) CKD (chronic kidney disease) stage 3, GFR 30-59 ml/min Status: Chronic Hospital Course & Plan: Creatinine ranges 1.1-1.3. Stable Departure Weight (Pounds): 265 Result Diagram: 06/30/1852706/30/18527 Condition: Improved Discharge: Home Discharge Instructions Home Meds Active Scripts Prednisone (PREDNISONE) 20 Mg Tablet, 40 MG PO QDAY for 5 Days, #10 TAB Prov:STEPHANIE DAVID DO 06/30/18 Famotidine (FAMOTIDINE) 20 Mg Tablet, 20 MG PO QDAY, #90 TAB 3 Refills Prov:SKINNY EMMANUEL MD 05/27/18 Hydrochlorothiazide (HYDROCHLOROTHIAZIDE) 25 Mg Tablet, 1 TAB PO QDAY, #30 TAB 11 Refills Prov:SKINNY EMMANUEL MD 05/05/18 Azithromycin (ZITHROMAX) 250 Mg Tablet, 1 TAB PO DIRECTED, #36 TAB 3 Refills Take three times a week on , Wednesdays and Fridays. Prov:SKINNY EMMANUEL MD 04/28/18 Tiotropium [place] (SPIRIVA) 18 Mcg/Cap Inh, 2 PUFF INH DAILY, #1 INH 11 Refills Prov:SKINNY EMMANUEL MD 05/14/17 Reported Medications Pantoprazole Sodium (PROTONIX) 40 Mg Granpkt.dr, 40 MG PO QDAY, PACK 06/29/18 Fluticasone/Vilanterol (Breo Ellipta 200-25 Mcg INH) 1 Each Blst.w.dev, 1 PUFF INH QDAY 05/28/18 Oxygen (OXYGEN) Inha, 2 L INH QDAY, L 01/09/18 Bupropion Hcl (WELLBUTRIN SR) 150 Mg Tablet.er, 150 MG PO QDAY, TAB 11/11/17 Escitalopram Oxalate (ESCITALOPRAM OXALATE) 20 Mg Tablet, 20 MG PO QDAY 11/11/17 Pramipexole Di-Hcl (MIRAPEX) 1 Mg Tablet, 1 MG PO DAILY 11/11/17 Cholecalciferol (Vitamin D3) (VITAMIN D3) 1,000 Unit Tablet, 1000 UNIT PO QDAY, TAB 06/20/17 Hydroxyzine Pamoate (HYDROXYZINE PAMOATE) 25 Mg Capsule, 25 TAB PO Q8H PRN for ANXIETY/INSOMNIA 01/27/17 Albuterol Sulfate 90 Mcg/Act (PROAIR HFA 90 MCG/ACT) 8.5 Gm Hfa.aer.ad, 2 PUFF IH Q4-6H PRN for DYSPNEA, INHALER 01/27/17 Multivitamin (MULTIVITAMINS) 1 Each Capsule, 1 EACH PO DAILY, CAPSULE 12/08/16 Discontinued Scripts Prednisone (PREDNISONE) 20 Mg Tablet, 20 MG PO QDAY for reduce lung inflammation for 7 Days 2 by mouth daily for 3 days, one by mouth daily for 3 days Prov:DENIA PUGA DO 06/29/18 Pantoprazole Sodium (PROTONIX) 40 Mg , 40 MG PO QDAY, #30 PACK 1 Ref ill Prov:SKINNY EMMANUEL MD 06/21/18 Diet: Regular Activity: As Tolerated Special Instructions: Follow up with PCP within one week. You were started on a short course of steroids to help breathing. Copies to: SKINNY EMMANUEL MD ; Venous Thromboembolism Antithrombotics Is Pt On Any Antithrombotics?: Yes Problem Qualifiers (1) Hypertension: Hypertension type: essential hypertension Qualified Codes: I10 - Essential (primary) hypertension JERRI MARROQUINSTEPHANIE Jun 30, 2018 12:23
[2018-06-30 14:50] VITALS: Ht 160 cm; Wt 120.2 kg
--- NOTE | 2018-06-30 14:50 | Medical Nutrition Therapy ---
Nutrition Anthropometrics Height (Inches): 63 Weight (Pounds): 265 Weight (Calculated Kilograms): 120.202 BMI: 47 [place] Nutrition Score: Adequate [place] Nutrition Risk Score: 20 Dietary Referral Nutrition Risk Factors: Unplanned Loss >10lbs Nutrition Risk Comment: CHIKI HAD PT ON 1800 TIMOTHY DAILY Physical Findings Physical Appearance: Morbidly Obese 40+ Skin Appearance Skin Appearance: Edema Edema Location Modifier: Both Edema Location: Lower Extremity Type of Edema: Degree of Edema: Gastrointestinal Symptoms GI Symtoms: Tube Present: Bowel Sounds: Recent Bowel Pattern: Stool Characteristics: Nutritional Diagnosis Nutritional Risk Acuity 2: Chronic Renal Failure Nutritional Risk Acuity 3: Fair Appetite, COPD Unstable Past Medical History: Hx of COPD, GERD, morbid obesity, CDK-3, hypothyroid, somatic symptom disorder, depression, RLS. Nutritional Acuity: 2-Moderate Nutrition Diagnosis: Over-weight/Obesity Nutrition Etiology: Physiological Causes Nutrition Problem/Etiology/Sym: Overweight/obesity related to physiological causes as evidenced by BMI of 47.2. Energy Requirement: 2335 (MSJ, 1.1 TEF, 1.2 AF) Adjusted Energy Requirement Re: 1585 (-750kcal) Protein Requirement: 96 (0.8g/kg of BW) Fluid Requirement: 1585 (1ml/kcal) Diet Type: Diet as Tolerated [place]/REG Nutrition Intervention: Cont diet as ordered Drug: Diuretics Drug/Nutrition Recommendations: Check Serum K+ Nutrition Monitoring & Eval Nutrition Goals: Eat 50-100% Meal RD Patient Assessment Time: [address] Assessment Type: RD Assessment Patient Nutrition Acuity: 2-Moderate Follow Up Date: Jul 04, 2018 Nutritional Comment: 06/02: Pt admitted for COPD exacerbation, HTN, RLS, CKD stage 3. Hx of COPD, GERD, morbid obesity, CDK-3, hypothyroid, somatic symptom disorder, depression, RLS. Pt has elevated BUN (24), creatinine (1.1), and RBG (127) levels. Pt has decreased sodium (136) and total bilirubin (0.1) levels. Pt is currently taking enoxaparin (anticoagulant) and hydrochlorothiazide (diuretic). Pt is consuming 100% of small [place] meals. Continue to monitor intake and potassium levels. -WALT TINAJERO Jun 30, 2018 09:19
[2018-07-01] MEDS ORDERED: INFLUENZA VIRUS VAC 0.5ML SYR IM ONLY ONE (09:00)
== END 2018-06-30 13:20 | disposition home or self-care (01) | DRG 192 ==
LOC: ER 12:16 → MED 15:30
PROVIDERS: ADMIT Internal Medicine; ATTEND Internal Medicine
DX: J44.1 Chronic obstructive pulmonary disease with (acute) exacerbation (principal); G25.81 Restless legs syndrome; F34.1 Dysthymic disorder; K59.09 Other constipation; K21.9 Gastro-esophageal reflux disease without esophagitis; F41.8 Other specified anxiety disorders; F17.210 Nicotine dependence, cigarettes, uncomplicated; I12.9 Hypertensive chronic kidney disease with stage 1 through stage 4 chronic kidney disease, or unspecified chronic kidney disease; N18.3 Chronic kidney disease, stage 3 (moderate); Z88.1 Allergy status to other antibiotic agents; Z88.2 Allergy status to sulfonamides; Z88.8 Allergy status to other drugs, medicaments and biological substances; Z90.49 Acquired absence of other specified parts of digestive tract; Z99.81 Dependence on supplemental oxygen
CPT/HCPCS: 36415; 82040; 82247; 82310; 82374; 82435; 82565; 82947; 84075; 84132; 84155; 84295; 84450; 84460; 84520; 85025; 87502; 93005; 94640; 94644; 99284; J1650; J2930; J3535; J7512; J7613; J7614

== ENCOUNTER 2018-07-04 11:15 | Emergency (ER) | payer MEDICARE, BC ==
[2018-06-30 14:50] VITALS: Wt 122.5 kg
--- NOTE | 2018-07-04 11:33 | ER Report ---
History and Physical Time Seen By MD: 11:32 Hx. of Stated Complaint: "I FEEL LIKE MY HEART IS BEATING TOO FAST". C/O FATIGUE WITH ACTIVITY HPI/ROS CHIEF COMPLAINT: Racing heart rate, increased dyspnea on exertion HISTORY OF PRESENT ILLNESS: Patient is a 52-year-old female with history of COPD dependent on supplemental oxygen here with complaints of acute worsening of her exertional dyspnea, sensation of her heart beating rapidly with exertion. Patient reportedly has been taking her medications as prescribed and continues to have audible wheezing on examination. Patient currently denies chest pain, but describes her discomfort as a racing heart rate and increased shortness of breath. Denies new or worsening cough. Patient is afebrile, hemodynamically stable. REVIEW OF SYSTEMS: Constitutional: No fever, no chills. Eyes: No discharge. ENT: No sore throat. Cardiovascular: No chest pain, no palpitations. Respiratory: + Baseline nonproductive cough, + increased shortness of breath with exertion. Gastrointestinal: No abdominal pain, no vomiting. Genitourinary: No hematuria. Musculoskeletal: No back pain. Skin: No rashes. Neurological: No headache. Allergies: Coded Allergies: aripiprazole (Verified Allergy, Intermediate, RASH, 07/04/18) lithium (Verified Allergy, Intermediate, RASH, 07/04/18) lurasidone (Verified Allergy, Intermediate, 07/04/18) quetiapine (Verified Allergy, Intermediate, DIZZY, 07/04/18) DIzzy varenicline (Verified Allergy, Intermediate, SWELLING, 07/04/18) ciprofloxacin (Verified Allergy, Mild, N/V, 07/04/18) sulfamethoxazole (Verified Allergy, Mild, HIVES, 07/04/18) topiramate (Verified Allergy, Mild, UPSET STOMACH, 07/04/18) Upset stomach trimethoprim (Verified Allergy, Mild, HIVES, 07/04/18) metoprolol (Unverified Allergy, Unknown, 07/04/18) dyspnea haloperidol (Verified Adverse Reaction, Severe, DYSTONIC REACTION, 07/04/18) adhesive tape (Verified Adverse Reaction, Mild, RASH, 07/04/18) fluticasone (Verified Adverse Reaction, Mild, THRUSH, 07/04/18) salmeterol (Verified Adverse Reaction, Mild, THRUSH, 07/04/18) Home Meds Active Scripts Prednisone (PREDNISONE) 20 Mg Tablet, 40 MG PO QDAY for 5 Days, #10 TAB Prov:STEPHANIE DAVID DO 06/30/18 Famotidine (FAMOTIDINE) 20 Mg Tablet, 20 MG PO QDAY, #90 TAB 3 Refills Prov:SKINNY EMMANUEL MD 05/27/18 Hydrochlorothiazide (HYDROCHLOROTHIAZIDE) 25 Mg Tablet, 1 TAB PO QDAY, #30 TAB 11 Refills Prov:SKINNY EMMANUEL MD 05/05/18 Azithromycin (ZITHROMAX) 250 Mg Tablet, 1 TAB PO DIRECTED, #36 TAB 3 Refills Take three times a week on , Wednesdays and Fridays. Prov:SKINNY EMMANUEL MD 04/28/18 Tiotropium [place] (SPIRIVA) 18 Mcg/Cap Inh, 2 PUFF INH DAILY, #1 INH 11 Refills Prov:SKINNY EMMANUEL MD 05/14/17 Reported Medications Pantoprazole Sodium (PROTONIX) 40 Mg Granpkt.dr, 40 MG PO QDAY, PACK 06/29/18 Fluticasone/Vilanterol (Breo Ellipta 200-25 Mcg INH) 1 Each Blst.w.dev, 1 PUFF INH QDAY 05/28/18 Oxygen (OXYGEN) Inha, 2 L INH QDAY, L 01/09/18 Bupropion Hcl (WELLBUTRIN SR) 150 Mg Tablet.er, 150 MG PO QDAY, TAB 11/11/17 Escitalopram Oxalate (ESCITALOPRAM OXALATE) 20 Mg Tablet, 20 MG PO QDAY 11/11/17 Pramipexole Di-Hcl (MIRAPEX) 1 Mg Tablet, 1 MG PO DAILY 11/11/17 Cholecalciferol (Vitamin D3) (VITAMIN D3) 1,000 Unit Tablet, 1000 UNIT PO QDAY, TAB 06/20/17 Hydroxyzine Pamoate (HYDROXYZINE PAMOATE) 25 Mg Capsule, 25 TAB PO Q8H PRN for ANXIETY/INSOMNIA 01/27/17 Albuterol Sulfate 90 Mcg/Act (PROAIR HFA 90 MCG/ACT) 8.5 Gm Hfa.aer.ad, 2 PUFF IH Q4-6H PRN for DYSPNEA, INHALER 01/27/17 Multivitamin (MULTIVITAMINS) 1 Each Capsule, 1 EACH PO DAILY, CAPSULE 12/08/16 Discontinued Scripts Prednisone (PREDNISONE) 20 Mg Tablet, 20 MG PO QDAY for reduce lung inflammation for 7 Days 2 by mouth daily for 3 days, one by mouth daily for 3 days Prov:DENIA PUGA DO 06/29/18 Pantoprazole Sodium (PROTONIX) 40 Mg Granp, 40 MG PO QDAY, #30 PACK 1 Refill Prov:SKINNY EMMANUEL MD 06/21/18 Hx Smoking: Yes (4-5 CIGS QDAY. SMOKED 30+ YRS.) Smoking Status: Current: Every Day Smoker Exposure to Second Hand Smoke?: Yes Hx Substance Use Disorder: No Hx Alcohol Use: Yes Constitutional Vital Sign - Last 24 Hours 07/04/18 07/04/18 07/04/18 07/04/18 11:25 11:31 12:06 12:06 Temp 97.9 Pulse 106 80 Resp 22 18 B/P (MAP) 126/82 Pulse Ox 96 97 O2 Delivery Nasal Cannula Nasal Cannula O2 Flow Rate 2.0 3.0 07/04/18 12:12 Pulse 82 Resp 18 Physical Exam General Appearance: The patient is alert, has no immediate need for airway protection and no signs of toxicity. Nontoxic-appearing Eyes: Pupils equal and round no pallor or injection. ENT, Mouth: Mucous membranes are moist. Respiratory: + Diffuse bilateral wheezing Cardiovascular: Regular rate and rhythm. Gastrointestinal: Abdomen is soft and non tender, no masses, bowel sounds normal. Neurological: No focal neurological findings Skin: Warm and dry, no rashes. Musculoskeletal: Neck is supple non tender. Extremities are nontender, nonswollen and have full range of motion. DIFFERENTIAL DIAGNOSIS: After history and physical exam differential diagnosis was considered for shortness of breath including but not limited to pulmonary infectious process, COPD, asthma, pulmonary embolus and congestive heart failure. Medical Decision Making Data Points Result Diagram: 07/04/18 1201 07/04/18 1201 Laboratory Hematology Test 07/04/18 12:01 Red Blood Count 4.26 M/uL (4.17-5.56) Mean Corpuscular Volume 90.8 fL (80.0-96.0) Mean Corpuscular Hemoglobin 31.0 pg (26.0-33.0) Mean Corpuscular Hemoglobin Concent 34.2 g/dL (32.0-36.0) Red Cell Distribution Width 12.7 % (11.5-14.5) Mean Platelet Volume 8.7 fL (7.2-11.1) Neutrophils (%) (Auto) 76.5 % (39.4-72.5) Lymphocytes (%) (Auto) 16.4 % (17.6-49.6) Monocytes (%) (Auto) 5.9 % (4.1-12.4) Eosinophils (%) (Auto) 0.6 % (0.4-6.7) Basophils (%) (Auto) 0.6 % (0.3-1.4) Nucleated RBC Relative Count (auto) 0.0 /100WBC Neutrophils # (Auto) 7.4 K/uL (2.0-7.4) Lymphocytes # (Auto) 1.6 K/uL (1.3-3.6) Monocytes # (Auto) 0.6 K/uL (0.3-1.0) Eosinophils # (Auto) 0.1 K/uL (0.0-0.5) Basophils # (Auto) 0.1 K/uL (0.0-0.1) Nucleated RBC Absolute Count (auto) 0.00 K/uL Peripheral Blood Smear No Y/N Sodium Level 137 mmol/L (137-145) Potassium Level 3.4 mmol/L (3.5-5.0) Chloride Level 96 mmol/L (98-107) Carbon Dioxide Level 36 mmol/L (22-31) Blood Urea Nitrogen 31 mg/dl (7-18) Creatinine 1.10 mg/dl (0.52-1.04) Glomerular Filtration Rate Calc 51.8 Random Glucose 136 mg/dl (75-110) Calcium Level 9.4 mg/dl (8.4-10.2) Total Bilirubin 0.2 mg/dl (0.2-1.3) Aspartate Amino Transf (AST/SGOT) 15 U/L (0-35) Alanine Aminotransferase (ALT/SGPT) 22 U/L (0-56) Alkaline Phosphatase 78 U/L (0-126) Total Protein 6.2 g/dl (6.3-8.2) Albumin 3.5 g/dl (3.5-5.0) Chemistry Test 07/04/18 12:01 White Blood Count 9.6 k/uL (4.5-11.0) Red Blood Count 4.26 M/uL (4.17-5.56) Hemoglobin 13.2 g/dL (12.0-16.0) Hematocrit 38.6 % (34.0-47.0) Mean Corpuscular Volume 90.8 fL (80.0-96.0) Mean Corpuscular Hemoglobin 31.0 pg (26.0-33.0) Mean Corpuscular Hemoglobin Concent 34.2 g/dL (32.0-36.0) Red Cell Distribution Width 12.7 % (11.5-14.5) Platelet Count 228 K/uL (150-450) Mean Platelet Volume 8.7 fL (7.2-11.1) Neutrophils (%) (Auto) 76.5 % (39.4-72.5) Lymphocytes (%) (Auto) 16.4 % (17.6-49.6) Monocytes (%) (Auto) 5.9 % (4.1-12.4) Eosinophils (%) (Auto) 0.6 % (0.4-6.7) Basophils (%) (Auto) 0.6 % (0.3-1.4) Nucleated RBC Relative Count (auto) 0.0 /100WBC Neutrophils # (Auto) 7.4 K/uL (2.0-7.4) Lymphocytes # (Auto) 1.6 K/uL (1.3-3.6) Monocytes # (Auto) 0.6 K/uL (0.3-1.0) Eosinophils # (Auto) 0.1 K/uL (0.0-0.5) Basophils # (Auto) 0.1 K/uL (0.0-0.1) Nucleated RBC Absolute Count (auto) 0.00 K/uL Peripheral Blood Smear No Y/N Glomerular Filtration Rate Calc 51.8 Calcium Level 9.4 mg/dl (8.4-10.2) Total Bilirubin 0.2 mg/dl (0.2-1.3) Aspartate Amino Transf (AST/SGOT) 15 U/L (0-35) Alanine Aminotransferase (ALT/SGPT) 22 U/L (0-56) Alkaline Phosphatase 78 U/L (0-126) Total Protein 6.2 g/dl (6.3-8.2) Albumin 3.5 g/dl (3.5-5.0) EKG/Imaging EKG Interpretation 12 lead EKG: Normal sinus rhythm, ventricular rate 82, QTC 453, no ischemic changes or arrhythmias present Rhythm: normal sinus rhythm [place]: normal QRS: normal ST segments: normal Imaging Chest x-ray, no acute cardiopulmonary process ED Course/Re-evaluation ED Course Patient is a 52-year-old female with history of COPD dependent on supplemental oxygen at baseline, increased exertional dyspnea, intermittent racing heart rate. Patient reports that her intermittent racing heart rate seems to be associated with exertion as well. Labs are unremarkable. Patient was given DuoNeb treatment. Chest x-ray and EKG were collected. Chest x-ray showed no acute cardiopulmonary process. EKG showed normal sinus rhythm without ischemia or arrhythmia. Recommend close PCP follow-up. Return precautions provided. Decision to Disposition Date: Jul 04, 2018 Decision to Disposition Time: 13:17 Depart Departure Latest Vital Signs Vital Signs Date Time Temp Pulse Resp B/P (MAP) Pulse Ox O2 Delivery O2 Flow Rate FiO2 07/04/18 12:12 82 18 07/04/18 12:06 97 Nasal Cannula 3.0 07/04/18 11:25 97.9 126/82 Core Temperature (Celsius): 37.23 Impression: Primary Impression: Shortness of breath Additional Impression: Rapid heart rate Condition: Improved Disposition: HOME OR SELF-CARE Referrals: SKINNY EMMANUEL MD (PCP) Patient Instructions: Dyspnea (GEN), Tachycardia (ED) Additional Instructions: Please follow up closely with your family doctor. Your chest x-ray showed no signs of bacterial pneumonia or pulmonary edema or effusions. Her EKG showed no signs of arrhythmias or heart attack. Please return immediately if you develop worsening symptoms, fevers, chills, chest pains, nausea, vomiting. Problem Qualifiers KERI CLARKE DO Jul 04, 2018 11:33
[2018-07-04] MEDS ORDERED: ALBUTEROL/IPRATROPIUM 3 ML NEB NEB ONE (11:55)
[2018-07-04 12:12] LABS: PLATELET COUNT, AUTOMATED 228 K/uL (150-450)
--- NOTE | 2018-07-04 13:15 | RADIOLOGY IMAGING REPORT ---
FACILITY: [facility] PATIENT NAME: Natividad Loaiza : 1965 MR: [id number] V: [id number] EXAM DATE: ORDERING PHYSICIAN: KERI CLARKE TECHNOLOGIST: Location: [facility] - [place] Patient: Natividad Loaiza : 1965 Visit/Account:[id number] Date of Sevice: 07/04/2018 Technique: CHEST PA LAT HISTORY: cough Comparison studies: Chest radiograph June 29, 2018 FINDINGS: Lungs are clear. No pleural effusion or pneumothorax. Cardiomediastinal silhouette is uncha nged. IMPRESSION: 1. No acute cardiopulmonary process. Report Dictated By: Miguel Orozco DO at 07/04/2018 1:09 PM Report E-Signed By: Miguel Orozco DO at 07/04/2018 1:11 PM WSN:[id number]
--- NOTE | 2018-07-04 13:21 | EKG ---
FACILITY: [facility] - [place] PATIENT NAME: FLORENCIO CRUZ : [id number] MR: [id number] V: [id number] EXAM DATE: ORDERING PHYSICIAN: KERI CLARKE TECHNOLOGIST: Test Reason : rapid heart rate hx Blood Pressure : / mmHG Vent. Rate : 082 BPM Atrial Rate : 082 BPM P-R Int : 132 ms QRS Dur : 078 ms QT Int : 388 ms P-R-T Axes : 068 052 064 degrees QTc Int : 453 ms Normal sinus rhythm Normal ECG When compared with ECG of 29-JUN-2018 12:11, No significant change was found Confirmed by TIFFANIE MASSEY ([id number]) on 07/05/2018 6:49:23 AM Referred By: Confirmed By:TIFFANIE MASSEY
[2018-07-04 13:33] VITALS: BP 140/87
== END 2018-07-04 13:33 | disposition home or self-care (01) ==
LOC: ER 11:37
DX: R06.02 Shortness of breath (principal); R00.0 Tachycardia, unspecified; F17.210 Nicotine dependence, cigarettes, uncomplicated
CPT/HCPCS: 36415; 71046; 85025; 93005; 94640; 99284; J7620; 82040; 82247; 82310; 82374; 82435; 82565; 82947; 84075; 84132; 84155; 84295; 84450; 84460; 84520

== ENCOUNTER 2018-07-09 11:59 | Emergency (ER) | payer MEDICARE, BC ==
[2018-06-30 14:50] VITALS: BMI 46.9
[~2018-07-09 11:59] MED LIST changes: +POTA-53 PO
--- NOTE | 2018-07-09 12:10 | ER Report ---
History and Physical Time Seen By MD: 12:10 HPI/ROS CHIEF COMPLAINT: Self harm ideation HISTORY OF PRESENT ILLNESS: 52-year-old female patient presents to emergency room with complaint of self-harm ideation. Patient states that she started havi ng some thoughts last night about harming herself. She did call the [facility] hotline. She states that when she woke up this morning that she noted some shallow abrasions to the left forearm. At that time she was concerned that she did not recall harming herself. She states that she did call and talk to the crisis line here the hospital and felt that she should come in and go upstairs to behavioral health until those self-harm thoughts are better controlled. Patient denies any suicidal ideation. She denies any nausea, vomiting or diarrhea. Patient denies any recent changes to her medications. REVIEW OF SYSTEMS: Respiratory: No cough, no dyspnea. Cardiovascular: No chest pain, no palpitations. Gastrointestinal: No vomiting, no abdominal pain. Musculoskeletal: No back pain. Allergies: Coded Allergies: aripiprazole (Verified Allergy, Intermediate, RASH, 07/09/18) lithium (Verified Allergy, Intermediate, RASH, 07/09/18) lurasidone (Verified Allergy, Intermediate, 07/09/18) quetiapine (Verified Allergy, Intermediate, DIZZY, 07/09/18) DIzzy varenicline (Verified Allergy, Intermediate, SWELLING, 07/09/18) ciprofloxacin (Verified Allergy, Mild, N/V, 07/09/18) sulfamethoxazole (Verified Allergy, Mild, HIVES, 07/09/18) topiramate (Verified Allergy, Mild, UPSET STOMACH, 07/09/18) Upset stomach trimethoprim (Verified Allergy, Mild, HIVES, 07/09/18) metoprolol (Verified Allergy, Unknown, 07/09/18) dyspnea haloperidol (Verified Adverse Reaction, Severe, DYSTONIC REACTION, 07/09/18) adhesive tape (Verified Adverse Reaction, Mild, RASH, 07/09/18) fluticasone (Verified Adverse Reaction, Mild, THRUSH, 07/09/18) salmeterol (Verified Adverse Reaction, Mild, THRUSH, 07/09/18) Home Meds Active Scripts Potassium Chloride (POTASSIUM CHLORIDE) 10 Meq Tab.er.prt, 10 MEQ PO QDAY for edema, #90 TAB 3 Refills Prov:SKINNY EMMANUEL MD 07/09/18 Famotidine (FAMOTIDINE) 20 Mg Tablet, 20 MG PO QDAY, #90 TAB 3 Refills Prov:SKINNY EMMANUEL MD 05/27/18 Hydrochlorothiazide (HYDROCHLOROTHIAZIDE) 25 Mg Tablet, 1 TAB PO QDAY, #30 TAB 11 Refills Prov:SKINNY EMMANUEL MD 05/05/18 Tiotropium [place] (SPIRIVA) 18 Mcg/Cap Inh, 2 PUFF INH DAILY, #1 INH 11 Refills Prov:SKINNY EMMANUEL MD 05/14/17 Reported Medications Budesonide/Formoterol Fumarate (SYMBICORT 160-4.5 MCG INHALER) 10.2 Gm Inh, 2 PUFF INH BID, INH 07/09/18 Pantoprazole Sodium (PROTONIX) 40 Mg Granpkt.dr, 40 MG PO QDAY, PACK 06/29/18 Fluticasone/Vilanterol (Breo Ellipta 200-25 Mcg INH) 1 Each Blst.w.dev, 1 PUFF INH QDAY 05/28/18 Oxygen (OXYGEN) Inha, 2 L INH QDAY, L 01/09/18 Escitalopram Oxalate (ESCITALOPRAM OXALATE) 20 Mg Tablet, 20 MG PO QDAY 11/11/17 Pramipexole Di-Hcl (MIRAPEX) 1 Mg Tablet, 1 MG PO DAILY 11/11/17 Cholecalciferol (Vitamin D3) (VITAMIN D3) 1,000 Unit Tablet, 1000 UNIT PO QDAY, TAB 06/20/17 Albuterol Sulfate 90 Mcg/Act (PROAIR HFA 90 MCG/ACT) 8.5 Gm Hfa.aer.ad, 2 PUFF IH Q4-6H PRN for DYSPNEA, INHALER 01/27/17 Multivitamin (MULTIVITAMINS) 1 Each Capsule, 1 EACH PO DAILY, CAPSULE 12/08/16 Discontinued Reported Medications Bupropion Hcl (WELLBUTRIN SR) 150 Mg Tablet.er, 150 MG PO QDAY, TAB 11/11/17 Hydroxyzine Pamoate (HYDROXYZINE PAMOATE) 25 Mg Capsule, 25 TAB PO Q8H PRN for ANXIETY/INSOMNIA 01/27/17 Discontinued Scripts Prednisone (PREDNISONE) 20 Mg Tablet, 40 MG PO QDAY for 5 Days, #10 TAB Prov:STEPHANIE DAVID DO 06/30/18 Azithromycin (ZITHROMAX) 250 Mg Tablet, 1 TAB PO DIRECTED, #36 TAB 3 Refills Take three times a week on , Wednesdays and Fridays. 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 Patient has a surgical history of cholecystectomy, left hand, left shoulder, neck surgery, tonsillectomy, breast biopsy. Reviewed Nurses Notes: Yes Hx Smoking: Yes (4-5 CIGS QDAY. SMOKED 30+ YRS.) Smoking Status: Current: Every Day Smoker Exposure to Second Hand Smoke?: Yes Hx Substance Use Disorder: No Hx Alcohol Use: Yes Constitutional Vital Sign - Last 24 Hours 07/09/18 12:20 Temp 98.5 Pulse 101 Resp 20 B/P (MAP) 113/94 Pulse Ox 95 O2 Delivery Nasal Cannula Physical Exam General Appearance: The patient is alert, has no immediate need for airway protection and no current signs of toxicity. Respiratory: Chest is non tender, lungs are clear to auscultation. Cardiac: regular rate and rhythm Gastrointestinal: Abdomen is soft and non tender, no masses, bowel sounds normal. Musculoskeletal: Neck: Neck is supple and non tender. Extremities have full range of motion and are non tender. Skin: No rashes or lesions. Psych: Patient is able to maintain good eye contact, she has an appropriate rate of speech. DIFFERENTIAL DIAGNOSIS: After history and physical exam differential diagnosis was considered for depression, self-harm ideation. Medical Decision Making Data Points Result Diagram: 07/09/18 1225 07/09/18 1225 Laboratory Hematology Test 07/09/18 12:25 07/09/18 12:26 Red Blood Count 4.74 M/uL (4.17-5.56) Mean Corpuscular Volume 90.9 fL (80.0-96.0) Mean Corpuscular Hemoglobin 30.2 pg (26.0-33.0) Mean Corpuscular Hemoglobin Concent 33.3 g/dL (32.0-36.0) Red Cell Distribution Width 12.9 % (11.5-14.5) Mean Platelet Volume 8.8 fL (7.2-11.1) Neutrophils (%) (Auto) 75.6 % (39.4-72.5) Lymphocytes (%) (Auto) 16.8 % (17.6-49.6) Monocytes (%) (Auto) 5.9 % (4.1-12.4) Eosinophils (%) (Auto) 0.9 % (0.4-6.7) Basophils (%) (Auto) 0.8 % (0.3-1.4) Nucleated RBC Relative Count (auto) 0.0 /100WBC Neutrophils # (Auto) 5.8 K/uL (2.0-7.4) Lymphocytes # (Auto) 1.3 K/uL (1.3-3.6) Monocytes # (Auto) 0.4 K/uL (0.3-1.0) Eosinophils # (Auto) 0.1 K/uL (0.0-0.5) Basophils # (Auto) 0.1 K/uL (0.0-0.1) Nucleated RBC Absolute Count (auto) 0.00 K/uL Sodium Level 139 mmol/L (137-145) Potassium Level 3.7 mmol/L (3.5-5.0) Chloride Level 98 mmol/L (98-107) Carbon Dioxide Level 33 mmol/L (22-31) Blood Urea Nitrogen 21 mg/dl (7-18) Creatinine 1.10 mg/dl (0.52-1.04) Glomerular Filtration Rate Calc 51.8 Random Glucose 129 mg/dl (75-110) Calcium Level 9.8 mg/dl (8.4-10.2) Magnesium Level 1.7 mg/dl (1.7-2.2) Total Bilirubin 0.3 mg/dl (0.2-1.3) Aspartate Amino Transf (AST/SGOT) 16 U/L (0-35) Alanine Aminotransferase (ALT/SGPT) 19 U/L (0-56) Alkaline Phosphatase 89 U/L (0-126) Total Protein 7.1 g/dl (6.3-8.2) Albumin 4.1 g/dl (3.5-5.0) Thyroid Stimulating Hormone (TSH) 1.09 uIU/ml (0.46-4.68) Salicylates Level < 10 mg/L Salicylate Last Dose Date unk Acetaminophen Level < 10 ug/ml Serum Alcohol < 10 mg/dl Urine Color Yellow Urine Clarity Clear Urine pH 5.0 pH (4.8-9.5) Urine Specific [place] 1.021 Urine Protein Negative mg/dL (NEGATIVE) Urine Glucose (UA) Negative mg/dL (NEGATIVE) Urine Ketones Negative mg/dL (NEGATIVE) Urine Blood Negative (NEGATIVE) Urine Nitrite Negative (NEGATIVE) Urine Bilirubin Negative (NEGATIVE) Urine Urobilinogen Negative mg/dL (0.2-1.9) Urine Leukocyte Esterase Negative (NEGATIVE) Urine RBC <1 /HPF (0-2/HPF) Urine WBC 1 /HPF (0-5/HPF) Urine Squamous Epithelial Cells Many /LPF (</=FEW) Urine Bacteria Negative /HPF (NONE-FEW) Urine Hyaline Casts Few /LPF (NONE-FEW) Urine Mucus Few /HPF (NONE-FEW) Urine HCG, Qualitative Negative (NEGATIVE) Urine Opiates Screen Negative Urine Barbiturates Screen Negative Ur Tricyclic Antidepressants Screen Negative Urine Phencyclidine Screen Negative Urine Amphetamines Screen Negative Urine Benzodiazepines Screen Negative Urine Cocaine Screen Negative Urine Cannabinoids Screen Negative Chemistry Test 07/09/18 12:25 07/09/18 12:26 White Blood Count 7.6 k/uL (4.5-11.0) Red Blood Count 4.74 M/uL (4.17-5.56) Hemoglobin 14.3 g/dL (12.0-16.0) Hematocrit 43.0 % (34.0-47.0) Mean Corpuscular Volume 90.9 fL (80.0-96.0) Mean Corpuscular Hemoglobin 30.2 pg (26.0-33.0) Mean Corpuscular Hemoglobin Concent 33.3 g/dL (32.0-36.0) Red Cell Distribution Width 12.9 % (11.5-14.5) Platelet Count 265 K/uL (150-450) Mean Platelet Volume 8.8 fL (7.2-11.1) Neutrophils (%) (Auto) 75.6 % (39.4-72.5) Lymphocytes (%) (Auto) 16.8 % (17.6-49.6) Monocytes (%) (Auto) 5.9 % (4.1-12.4) Eosinophils (%) (Auto) 0.9 % (0.4-6.7) Basophils (%) (Auto) 0.8 % (0.3-1.4) Nucleated RBC Relative Count (auto) 0.0 /100WBC Neutrophils # (Auto) 5.8 K/uL (2.0-7.4) Lymphocytes # (Auto) 1.3 K/uL (1.3-3.6) Monocytes # (Auto) 0.4 K/uL (0.3-1.0) Eosinophils # (Auto) 0.1 K/uL (0.0-0.5) Basophils # (Auto) 0.1 K/uL (0.0-0.1) Nucleated RBC Absolute Count (auto) 0.00 K/uL Glomerular Filtration Rate Calc 51.8 Calcium Level 9.8 mg/dl (8.4-10.2) Magnesium Level 1.7 mg/dl (1.7-2.2) Total Bilirubin 0.3 mg/dl (0.2-1.3) Aspartate Amino Transf (AST/SGOT) 16 U/L (0-35) Alanine Aminotransferase (ALT/SGPT) 19 U/L (0-56) Alkaline Phosphatase 89 U/L (0-126) Total Protein 7.1 g/dl (6.3-8.2) Albumin 4.1 g/dl (3.5-5.0) Thyroid Stimulating Hormone (TSH) 1.09 uIU/ml (0.46-4.68) Salicylates Level < 10 mg/L Salicylate Last Dose Date unk Acetaminophen Level < 10 ug/ml Serum Alcohol < 10 mg/dl Urine Color Yellow Urine Clarity Clear Urine pH 5.0 pH (4.8-9.5) Urine Specific [place] 1.021 Urine Protein Negative mg/dL (NEGATIVE) Urine Glucose (UA) Negative mg/dL (NEGATIVE) Urine Ketones Negative mg/dL (NEGATIVE) Urine Blood Negative (NEGATIVE) Urine Nitrite Negative (NEGATIVE) Urine Bilirubin Negative (NEGATIVE) Urine Urobilinogen Negative mg/dL (0.2-1.9) Urine Leukocyte Esterase Negative (NEGATIVE) Urine RBC <1 /HPF (0-2/HPF) Urine WBC 1 /HPF (0-5/HPF) Urine Squamous Epithelial Cells Many /LPF (</=FEW) Urine Bacteria Negative /HPF (NONE-FEW) Urine Hyaline Casts Few /LPF (NONE-FEW) Urine Mucus Few /HPF (NONE-FEW) Urine HCG, Qualitative Negative (NEGATIVE) Urine Opiates Screen Negative Urine Barbiturates Screen Negative Ur Tricyclic Antidepressants Screen Negative Urine Phencyclidine Screen Negative Urine Amphetamines Screen Negative Urine Benzodiazepines Screen Negative Urine Cocaine Screen Negative Urine Cannabinoids Screen Negative Toxicology Test 07/09/18 12:25 07/09/18 12:26 Salicylates Level < 10 mg/L Salicylate Last Dose Date unk Acetaminophen Level < 10 ug/ml Serum Alcohol < 10 mg/dl Urine Opiates Screen Negative Urine Barbiturates Screen Negative Ur Tricyclic Antidepressants Screen Negative Urine Phencyclidine Screen Negative Urine Amphetamines Screen Negative Urine Benzodiazepines Screen Negative Urine Cocaine Screen Negative Urine Cannabinoids Screen Negative Urinalysis Test 07/09/18 12:26 Urine Color Yellow Urine Clarity Clear Urine pH 5.0 pH (4.8-9.5) Urine Specific [place] 1.021 Urine Protein Negative mg/dL (NEGATIVE) Urine Glucose (UA) Negative mg/dL (NEGATIVE) Urine Ketones Negative mg/dL (NEGATIVE) Urine Blood Negative (NEGATIVE) Urine Nitrite Negative (NEGATIVE) Urine Bilirubin Negative (NEGATIVE) Urine Urobilinogen Negative mg/dL (0.2-1.9) Urine Leukocyte Esterase Negative (NEGATIVE) Urine RBC <1 /HPF (0-2/HPF) Urine WBC 1 /HPF (0-5/HPF) Urine Squamous Epithelial Cells Many /LPF (</=FEW) Urine Bacteria Negative /HPF (NONE-FEW) Urine Hyaline Casts Few /LPF (NONE-FEW) Urine Mucus Few /HPF (NONE-FEW) Urine HCG, Qualitative Negative (NEGATIVE) ED Course/Re-evaluation ED Course Patient is admitted and examined, history and physical were obtained. Differential diagnoses were considered. On examination lungs are clear, heart is regular, abdomen soft nontender. Patient does have 4 shallow abrasions to the left forearm which are linear in nature. Patient states that she is unable to recall any injury to herself. Lab work for a behavioral health admission were done. The results were negative. I discussed the case with Dr. Esteban, psychiatrist, who agreed to accept the patient for admission with diagnosis of self-harm behavior. I discussed this with the patient who verbalized understanding and agreement with plan. Decision to Disposition Date: Jul 09, 2018 Decision to Disposition Time: 13:10 Depart Departure Latest Vital Signs Vital Signs Date Time Temp Pulse Resp B/P (MAP) Pulse Ox O2 Delivery O2 Flow Rate FiO2 07/09/18 12:20 98.5 101 20 113/94 95 Nasal Cannula Core Temperature (Celsius): 37.23 Impression: Primary Impression: Self-harming behavior Condition: Condition Unchanged Disposition: XFER TO [facility] Referrals: SKINNY EMMANUEL MD (PCP) NINA GORDON Jul 09, 2018 12:10
[2018-07-09 12:20] VITALS: BP 113/94
[2018-07-09 12:27] LABS: PLATELET COUNT, AUTOMATED 265 K/uL (150-450)
[2018-07-09] MEDS ORDERED: BUDE10.25 IH (15:57)
[2018-07-09] MEDS ORDERED: BUDE10.2 INH (19:03)
== END 2018-07-09 13:28 ==
LOC: ER 12:07
DX: S50.812A Abrasion of left forearm, initial encounter (principal); R45.851 Suicidal ideations; I10 Essential (primary) hypertension; F32.9 Major depressive disorder, single episode, unspecified; F41.9 Anxiety disorder, unspecified
CPT/HCPCS: 36415; 80305; 81001; 81025; 83735; 84443; 85025; 99284; G0480; 80320; 80329; 82040; 82247; 82310; 82374; 82435; 82565; 82947; 84075; 84132; 84155; 84295; 84450; 84460; 84520

== ENCOUNTER 2018-07-09 13:15 | Inpatient (IN) | payer MEDICARE, BC ==
[2018-06-30 14:50] VITALS: Ht 160 cm; Wt 120.2 kg
[~2018-07-09] VITALS: Ht 160 cm; Wt 120.2 kg
[2018-07-09 14:38] VITALS: BP 128/68
[2018-07-09] MEDS ORDERED: MAG HYD/AL HYD/SIMETH 30ML UDC PO PRN (15:40)
[2018-07-09] MEDS ORDERED: ALBUTEROL 8 GM INHALER INH PRN (15:45)
[2018-07-09] MEDS ORDERED: hydrOXYzine PAMOATE 25 MG CAP PO PRN (15:50)
[2018-07-09] MEDS ORDERED: BUDE10.25 IH (15:57)
[2018-07-09] MEDS: BUDESO/FORMOT 80/4.5 MCG 6.9GM INH SCH (18:34)
[2018-07-09] MEDS ORDERED: BUDE10.2 INH (19:03)
[2018-07-09 20:42] VITALS: BP 128/81
[2018-07-09] MEDS: HYDROCHLOROTHIAZIDE 25 MG TAB PO SCH (20:42)
[2018-07-09] MEDS: PRAMIPEXOLE DIHYDROCHL 0.25 MG PO SCH (20:44)
[2018-07-10] MEDS ORDERED: TIOTROPIUM BROM INH 18 MCG/CAP INH SCH (06:00)
[2018-07-10 06:13] VITALS: BP 137/78
[2018-07-10] MEDS: ACETAMINOPHEN 325 MG TAB PO PRN ×2 (06:13→19:44)
[2018-07-10] MEDS: BUDESO/FORMOT 80/4.5 MCG 6.9GM INH SCH ×2 (06:27→17:33)
[2018-07-10] MEDS: buPROPion SR 150 MG TABCR PO SCH (08:04)
[2018-07-10] MEDS: FAMOTIDINE 20 MG TAB PO SCH (08:04)
[2018-07-10] MEDS: PANTOPRAZOLE SOD 40 MG TABEC PO SCH (08:04)
[2018-07-10] MEDS: CHOLECALCIFEROL 1000 UNIT TAB PO SCH (08:04)
[2018-07-10] MEDS: ESCITALOPRAM OXALATE 10 MG TAB PO SCH (08:05)
[2018-07-10] MEDS: MULTIVITAMINS PO SCH (08:05)
[2018-07-10] MEDS ORDERED: MULTIVITAMINS TAB PO SCH (09:00)
[2018-07-10 14:10] VITALS: BP 126/62
--- NOTE | 2018-07-10 15:33 | HISTORY AND PHYSICAL ---
DATE OF ADMISSION: July 09, 2018 DATE OF INITIAL PSYCHIATRIC INTERVIEW: July 10, 2018, at 0900. ATTENDING PROVIDER SONNY Bray PRESENTING PROBLEM/CHIEF COMPLAINT " night, I remember wanting to cut myself. This feeling was stronger than any urge to smoke. I called the [facility] hotline. I woke up Thursday not remembering what happened, but I had cut myself and found the box office agent. I had an appointment, and they told me I needed to come to Behavioral Health for admission." HISTORY OF PRESENT ILLNESS This patient is a single, 52-year-old female who presented to the Emergency Department with complaint of self-harm ideation. She reported she was having some thoughts last night about harming herself, and she called the [facility] hotline. When she woke up on Thursday morning, she noted some shallow abrasions to her left forearm, and that caused concern that she did not recall harming herself. She did call the crisis line and felt that an admission would be appropriate due to these self-harm thoughts. At time of initial interview, patient reports that she had some thoughts of self-harming on . She did call the crisis line at [facility] via their hotline. She is currently engaged with a mental health provider, Rebeca, via Telehealth for medication management, set to see her on July 31. She also is engaged with an individual therapist she sees monthly named Della, whom she has seen since November. She graduated from the DBT classes, has been trying to use those skills. At the time of initial interview, patient denies urge to self-harm. She denies any thoughts of hurting herself or others. She is rating her depression and anxiety 4/10 with 10 being the worst. She reports that she has been sleeping well at home. She uses oxygen 2 to 3L per nasal cannula at all times. She also uses a BiPAP, which she reports she is compliant with. She reports that she has had the recent stress since May of being put into a paid guardianship. This is through the [place] [employer]. She has a case work aide named Riley Choudhury who is working on getting this removed as she states she only gets $100 per week to spend. She does report a previous history of a gambling addiction, although has not engaged in gambling for over four years. Patient reports a sufficient appetite and fair energy level. She has been busy making her appointments throughout the day and also has now obtained a [facility] apartment where she is able to keep her dog whom she walks daily. Due to the self-harm behaviors and not remembering cutting her left arm with a box office agent, she was agreeable to a voluntary admission to Behavioral Health Unit for further evaluation and treatment. MENTAL HEALTH HISTORY Patient has a history of multiple previous inpatient psychiatric admissions at [facility] with the last admission in April 2018. Since then, she has had one inpatient medical admission for a COPD exacerbation at the end of June. Following her admission in July 2017, she did go to the [facility] in [place], [place], for approximately four months and was released in November 2017. She has been engaged with [facility] for outpatient mental health care and moved into [facility] May 2018. She is currently taking Wellbutrin 150 mg p.o. q.a.m. as well as escitalopram 20 mg one p.o. q.a.m. with reported benefit. She also uses 9 to 10 mg of melatonin at bedtime to aid with insomnia. She reports sufficient sleep and mostly euthymic mood with her current medications. She has been following the medication provider via Telehealth, [facility], for the last few psychiatric medication management appointments through [facility] as well as seeing an individual therapist named Della since November 2017. She also sees Dr. Trevino for medical issues. She has been on multiple psychotropics in the past including Depakote, Abilify, Haldol, lithium, Latuda, Seroquel, Topamax. She reports a history of "up to seven" previous suicide attempts by overdose. History of previous intubation, although she denies this was secondary to an overdose or suicide attempt. Her last suicide attempt was "sometime last year, possibly June 2017." She reports a recent urge to cut. She has three to four superficial abrasions on her left forearm, although she does not remember cutting the night prior to admission, although woke up with a box office agent by her bedside. She is currently denying suicidal or homicidal ideation. FAMILY PSYCHIATRIC HISTORY A brother with significant autism spectrum disorder. Both parents suffered from alcohol use disorder, now both . MEDICAL HISTORY 1. COPD. 2. Obesity. 3. Obstructive sleep apnea, now compliant with her BiPAP. 4. History of migraine headaches. 5. Left hand surgery for abnormal growth removal. 6. Nerve injury sequelae secondary to left hand injury. 7. 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 8. Patient has reported multiple medical complaints over the past few years consistent with somatic symptom disorder requiring frequent hospitalizations. SOCIAL HISTORY This patient was born in [place], [place], and raised there. Her parents were at the time of her . They remained , now both . She has never , has no children. No significant other. She has one full biological brother, one half brother, one full biological sister who lives in [place], [place]. She reports she has contact with her two brothers, although does not report them as a good support system. 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 She is now receiving Social Security Disability. She reports recent stress of being put into a paid guardianship. She does have a case work aide named Riley Choudhury working on getting the [place] guardianship removed. She is currently living in [facility] since May 2018. She is able to have her dog there. LEGAL HISTORY None. SUBSTANCE ABUSE HISTORY Patient continues to use nicotine three to four cigarette smoking per day. Has smoked cannabis in the past, none recent. She reports infrequent use of alcohol. She reports drinking one shot of alcohol over one month ago. PHYSICAL EXAMINATION Please see emergency room notes for physical exam. VITAL SIGNS: At time of admission including temperature of 98.1, pulse of 97, respiratory rate 20, blood pressure 120/68, pulse oximetry 96% on 2.5L per nasal cannula of oxygen. LABORATORY DATA Low sodium 135, chloride 94, carbon dioxide 37, BUN 23, creatinine 1.10, total protein 6.0. CBC with neutrophil percent 75.6, lymphocyte percent 16.8. Urine screen with many squamous epithelial cells, otherwise normal. Toxicology includes salicylates, acetaminophen, serum alcohol levels less than 10. Urine screen negative for opiates, barbiturates, tricyclics, phencyclidine, amphetamines, benzodiazepines, cocaine, and cannabinoids. MENTAL STATUS EXAMINATION GENERAL APPEARANCE, BEHAVIOR, AND ATTITUDE: This is a calm, cooperative, 52-year-old female who is interactive during initial interview. No periods of tearfulness. She is smiling, interacting well. No bizarre mannerisms or tics. No psychomotor agitation or retardation. SPEECH: Regular rate, rhythm, volume, tone. MOOD: Mostly euthymic. AFFECT: Minimally constricted, mood congruent. THOUGHT PROCESSES: Logical, goal directed. No loose associations. No flight of ideas. THOUGHT CONTENT: Free of auditory or visual hallucinations, ideas of reference, thought broadcasting, delusions, obsessions, compulsions. Patient adamantly denies suicidal or homicidal ideation. Denies thoughts of self-harm. SENSORIUM: Clear. COGNITION: Alert and oriented to person, place, time, situation. MEMORY: Immediate, recent, remote intact. CONCENTRATION: Intact. INTELLIGENCE: Average based on interview. INSIGHT AND JUDGMENT: Considered intact. Patient is agreeable to a voluntary admission for thoughts of self-harm. ASSESSMENT This is a 52-year-old single female who is well known to the unit, suffering from somatic symptom disorder in the past with multiple inpatient psychiatric hospitalizations. She is currently engaged with [facility] with an individual therapist and a medication provider, currently living in [facility] apartments. She reports on the prior to admission she had thoughts of self-harm via cutting with this urge being stronger than the urge to smoke. She awoke on Thursday morning with three to four superficial abrasions on her left forearm, which she does not remember self-inflicting. She came to the Emergency Room for further evaluation and treatment, feeling that an inpatient admission would be appropriate due to self-harm thoughts. She has a history reported of multiple suicide attempts with the last being in spring by overdose. She is currently denying suicidal or homicidal ideation. DIAGNOSES PER DIAGNOSTIC AND STATISTICAL MANUAL OF MENTAL DISORDERS, FIFTH EDITION 1. Persistent depressive disorder. 2. Somatic symptom disorder per history. PLAN 1. Will admit to the unit. 2. Necessary precautions will be implemented. 3. Individual and group therapy to be initiated. 4. Medications to be ordered and titrated accordingly. We will continue her escitalopram and bupropion as well as melatonin, which she reports benefits from taking. She is currently engaged with [facility] for outpatient mental healthcare. 5. Continue to monitor for further symptoms and self-harm behaviors, maintain precautions. 6. Estimated length of stay three to five days. [facility]
[2018-07-10 19:46] VITALS: BP 122/73
--- NOTE | 2018-07-10 20:13 | NUR ---
pt c/o SOB, currently wearing oxygen. SPO2 was 96%. pt was tachypnic with bilateral wheezes throughout. pt given albuterol rescue inhaler. pt currently resting in bed, no audible wheezing. will continue to watch pt and order neb tx if needed.
[2018-07-10] MEDS ORDERED: MELATONIN 3 MG TAB PO SCH (21:00)
[2018-07-10] MEDS: HYDROCHLOROTHIAZIDE 25 MG TAB PO SCH (21:28)
[2018-07-10] MEDS: PRAMIPEXOLE DIHYDROCHL 0.25 MG PO SCH (21:30)
[2018-07-11 06:11] VITALS: BP 115/78
[2018-07-11 06:24] LABS: PLATELET COUNT, AUTOMATED 190 K/uL (150-450)
[2018-07-11] MEDS: FAMOTIDINE 20 MG TAB PO SCH (08:04)
[2018-07-11] MEDS: buPROPion SR 150 MG TABCR PO SCH (08:04)
[2018-07-11] MEDS: ESCITALOPRAM OXALATE 10 MG TAB PO SCH (08:04)
[2018-07-11] MEDS: CHOLECALCIFEROL 1000 UNIT TAB PO SCH (08:04)
[2018-07-11] MEDS: MULTIVITAMINS PO SCH (08:04)
[2018-07-11] MEDS: PANTOPRAZOLE SOD 40 MG TABEC PO SCH (08:04)
[2018-07-11] MEDS ORDERED: HYDR25CA83 PO (09:13)
[2018-07-11] MEDS ORDERED: MELA1TAB2 PO (09:15)
[2018-07-11] MEDS ORDERED: BUPR-126 PO (09:16)
[2018-07-11] MEDS ORDERED: MELA1TAB15 PO (09:17)
[2018-07-11] MEDS ORDERED: MELA10CA PO (09:19)
[2018-07-11 10:05] VITALS: BP 126/74
--- NOTE | 2018-07-12 02:17 | DISCHARGE SUMMARY ---
DATE OF ADMISSION: July 09, 2018 DATE OF DISCHARGE: July 11, 2018 ATTENDING PRACTITIONER Marley Rodgers, Psychiatric Nurse Practitioner FINAL DIAGNOSES 1. Major depressive disorder, recurrent, moderate. 2. Somatic symptom disorder. REASON FOR ADMISSION This is a 52-year-old female admitted to the unit after she presented reporting that she had self-harmed without remembering doing this. Patient denies suicidal ideation. She does recall having thoughts of self-harm, however, does not recall self-harming prior to admission. Patient scratched herself very superficially on the forearm with a dull razor blade. PHYSICAL EXAMINATION Please see emergency room note for a complete review of systems. Vital signs on the day of discharge include temperature 97.1, pulse 97, respirations 20, blood pressure 126/74, oxygen saturations 94% on 3L of oxygen. LABORATORY DATA Please see record. MENTAL STATUS EXAMINATION GENERAL APPEARANCE, BEHAVIOR AND ATTITUDE: Pleasant and cooperative 52-year-old female who appears her stated age. She is dressed in hospital scrubs per protocol. No tearfulness is noted. She is pleasant and cooperative and makes good eye contact. SPEECH: Clear, spontaneous, and of normal rate, rhythm, and volume. MOOD: Patient describes mood as good. She is denying suicidal thoughts or thoughts of self-harm, reporting feeling stable. AFFECT: Rangeful and mood-congruent. THOUGHT PROCESSES: Overall logical and goal directed. No loose associations or flight of ideas. THOUGHT CONTENT: She denies any suicidal ideation. She denies homicidal ideation. She denies any thoughts of self-harm. She denies any auditory, visual, or other hallucinations. No ideas of reference. SENSORIUM: Clear. COGNITION: She is alert and oriented to person, place, time, and situation. MEMORY: Immediate, recent and remote estimated grossly intact. INTELLIGENCE: Average, based upon interview. INSIGHT AND JUDGMENT: Good. She acknowledges that she has depression, and she takes her medications and follows up with her outpatient providers as recommended. TREATMENT Patient was continued on her outpatient psychiatric medications. She participated in individual and group therapy and psychoeducation. HOSPITAL COURSE Patient was pleasant and cooperative throughout her stay. She denied any suicidal thoughts throughout her say. She did not self-harm. We did not change any of her medications while here. CONDITION OF PATIENT ON DISCHARGE Considered stable and a minimal risk to herself and others, appropriate for outpatient management. DISPOSITION Patient was discharged to home. She lives in the [facility] [address]. She is to follow up with her psychiatric provider at [facility] for outpatient medications, and Velia Farrar is her therapist at [facility]. She is to continue with her primary care provider for health concerns. Patient was discharged on the following psychotropic medications: 1. Bupropion 150 mg daily. 2. Escitalopram 20 mg daily. 3. Hydroxyzine 25 mg every eight hours as needed for anxiety or insomnia. 4. Melatonin 10 mg at bedtime. She takes multiple medications for her medical needs; please see medication reconciliation for list of those. The 24-hour crisis line number was provided should symptoms or problems return. The risks, benefits, and alternatives of the above discharge plan were discussed with client. Informed consent was given to proceed with the above discharge plan by this competent patient. ANIBAL
[2018-07-12] MEDS ORDERED: AZITHROMYCIN 250 MG TAB PO SCH (09:00)
== END 2018-07-11 10:10 | disposition home or self-care (01) | DRG 885 ==
LOC: BHS 13:15
PROVIDERS: ADMIT Psychiatry & Neurology Psychiatry; ATTEND Psychiatry & Neurology Psychiatry
DX: F33.1 Major depressive disorder, recurrent, moderate (principal); Z68.42 Body mass index [BMI] 45.0-49.9, adult; F45.1 Undifferentiated somatoform disorder; F17.210 Nicotine dependence, cigarettes, uncomplicated; Z99.81 Dependence on supplemental oxygen; E66.9 Obesity, unspecified; G47.00 Insomnia, unspecified; S50.812A Abrasion of left forearm, initial encounter; X78.8XXA Intentional self-harm by other sharp object, initial encounter; Y92.039 Unspecified place in apartment as the place of occurrence of the external cause; J44.9 Chronic obstructive pulmonary disease, unspecified; Z91.5 Personal history of self-harm; G47.33 Obstructive sleep apnea (adult) (pediatric)
CPT/HCPCS: 36415; 80305; 80320; 80329; 81001; 81025; 82040; 82247; 82310; 82374; 82435; 82565; 82947; 83735; 84075; 84132; 84155; 84295; 84443; 84450; 84460; 84520; 85025; 94640; 99284; J3535

== ENCOUNTER 2018-07-14 07:00 | Outpatient (RCR) | payer MEDICARE, BC ==
--- NOTE | 2018-05-19 06:29 | PT INITIAL EVALUATION ---
MEDICAL DIAGNOSIS: Right knee pain TREATMENT DIAGNOSIS: same DATE OF ONSET: 04/06/18 SUBJECTIVE: Natividad Loaiza presents to physical therapy with complaints of R knee pain that started around the 30 of March to the 08 of April after she hurt her knee stepping down. She reports that she sought medical attention right after the incident due to increased pain and swelling. She reports that the xray and venogram were negative. She reports that the swelling has gone away from the knee but she continues to have swelling around the calf and ankle. She reports that the knee feels better with sitting and worse with movement and rates her pain to be 6-7/10. She reports that she was a participant in a pulmonary class but following the injury it was difficult to complete the program due to increased R knee pain with walking, biking, or nustepping. She also reports that the pain is worse in the evening and is fearful that the knee will give out resulting in another fall. .Pain location is posterior capsule and described as achy, sore, tight. Pain scale is 7 on a ten point pain scale. REHAB PROBLEM LIST: Increased Pain Decreased ROM Decreased Strength Decreased Endurance Decreased Balance Decreased Function Decreased ADL's Decreased Gait PREVIOUS MEDICAL HISTORY: See EMR OCCUPATION: [employer] OBJECTIVE: She demonstrates increased swelling from mid calf down into ankle; however, the foot seems normal as compared to the other side Posture: She demonstrated B rounded shoulders, increased thoracic kyphosis, decreased lumbar lordosis, and forward head. ROM: R knee: PROM-AROM: extension: 10% reduction with pain as compared to other side and flexion equal. Strength: Medial hamstrings: strong and painful. lateral hamstrings: 5/5 no pain. B hip flexion, extension, abduction, adduction, B knee extension, B ankle PF and DF: 4-/5 without any pain. Palpation: TTP: posterior medical hamstrings Special Tests: Tendinopathy: medial hamstring as it was tender to palpation, painful with contraction, and painful with lengthening. (-) with MCL, LCL, meniscus, ACL, and PCL special tests. Mobility: Independent Gait: He demonstrated antalgic gait with decreased L step length, increased base of support, increased lateral trunk movement, decreased velocity, decreased pelvic mobility, and decreased push off in terminal stance of gait. Balance: Will test in future ASSESSMENT: Natividad will benefit from skilled physical therapy addressing the listed impairments to improve function and QOL. Based on my examination, it appears that she has signs and symptoms consistent with medial hamstring tendinopathy. Short Term Goals 6 weeks: Pt will demonstrate abolished pain with medial hamstring contraction to improve function and QOL. 6 weeks: Pt will demonstrate abolished pain with driving to improve function and QOL. 6 weeks: Pt will be independent with her home exercise program. Patient's Goals reduce pain so that she can continue to be active PLAN: Patient to be seen for Manual Therapy/STM/MET Range of Motion Work Hardening/Cond Stretching Neuromuscular Re-ed Closed Chain Program Posture/Body mechanics Gait Trg/Balance Trg Home Exercise Program Therapeutic Activities 2x/Week for 6 Weeks If you have any questions, comments, or concerns about this report or plan, please contact me at . Thank you, Boubacar Beavers, PT, DPT MTDD
[2018-06-30 14:50] VITALS: BMI 46.9
--- NOTE | 2018-07-07 18:45 | PT PLAN OF CARE ---
Physician: Ewelina Trevino MD Patient is being seen: 2x/week Therapist: Boubacar Beavers, PT, DPT Medical Diagnosis: Right knee pain Treatment Diagnosis: same Date of Onset: 04/06/18 Date of Initial Evaluation: 05/17/18 Date patient was last seen: 07/07/18 Number of treatments: 10 Number of cancellations/No shows: 3 INTERVENTIONS: Manual Therapy/STM/MET Range of Motion Work Hardening/Cond Stretching Neuromuscular Re-ed Closed Chain Program Posture/Body mechanics Gait Trg/Balance Trg Home Exercise Program Therapeutic Activities GOALS: 6 weeks: Pt will demonstrate abolished pain with medial hamstring contraction to improve function and QOL. 6 weeks: Pt will demonstrate abolished pain with driving to improve function and QOL. 6 weeks: Pt will be independent with her home exercise program. PATIENT'S GOAL: reduce pain so that she can continue to be active Status of Patient's Goals: Progressing well Patient Compliance: Good Prognosis: Good Reasons for continuing therapy: This is a progress note for Natividad Loaiza. She reports that her hamstring pain is doing much better. She reports that she develop some front knee pain that hurts with going up the stairs. She rates her current anterior knee pain to be 3/10. She continues to progress as her medial hamstring is almost full resolved. Furthermore, she has developed patellar tendinopathy that responded well to eccentric based exercise. Furthermore, she has demonstrated significant improvements in her B LE strength and the knee no longer moses, which is a significant improvement. We will continue to address her B LE strength and return to prior level of function. Posture: She demonstrated B rounded shoulders, increased thoracic kyphosis, decreased lumbar lordosis, and forward head. ROM: R knee: PROM-AROM: extension: 10% reduction with pain as compared to other side and flexion equal. Strength: Medial hamstrings: strong and painful. lateral hamstrings: 5/5 no pain. B hip flexion, extension, abduction, adduction, B knee extension, B ankle PF and DF: 4-/5 without any pain. Palpation: TTP: posterior medical hamstrings Special Tests: Tendinopathy: patellar tendon. (-) with MCL, LCL, meniscus, ACL, and PCL special tests. Mobility: Independent If you have any questions, please contact me at [phone]. Thank you, Boubacar Beavers, PT, DPT MTDD
[~2018-07-14 07:00] MED LIST changes: +MELA10CA PO; +MELA1TAB15 PO; +MELA1TAB2 PO
[2018-07-30] MEDS ORDERED: PRAM1TAB22 PO (10:54)
[2018-07-30] MEDS ORDERED: AZIT-1 PO (14:45)
== END 2018-07-14 18:00 | disposition home or self-care (01) ==
LOC: PT 07:00
PROVIDERS: ATTEND Emergency Medicine
DX: M25.561 Pain in right knee (principal)
CPT/HCPCS: 97162

== ENCOUNTER 2018-07-14 15:48 | Emergency (ER) | payer MEDICARE, BC ==
[2018-06-30 14:50] VITALS: Wt 121.1 kg
[2018-07-14 15:58] VITALS: BP 150/86
[2018-07-14] MEDS ORDERED: ALBUTEROL/IPRATROPIUM 3 ML NEB NEB ONE (16:15)
[2018-07-14] MEDS ORDERED: methylPREDNIS SUCC 125 MG/2ML IVP ONE (16:15)
--- NOTE | 2018-07-14 16:15 | ER Report ---
History and Physical Time Seen By MD: 16:00 Hx. of Stated Complaint: SOB, Chest pain HPI/ROS CHIEF COMPLAINT: Shortness of breath HISTORY OF PRESENT ILLNESS: 52-year-old female currently on a care plan for frequent visits is been in the emergency room 15 times in the 1st 4 months of this year was back to the emergency department again with a complaint of shortness of breath has a history of COPD. Patient states for the last 3-4 weeks has been getting worse little bit of heaviness on her chest which is not unusual for her baseline. Patient states that she is still a smoker about 4-6 a day. Patient has a nonproductive cough saying is harder for her to cough she said she is taking her home medications and home nebulizers with little to no benefit called the electrical repairer who sent her back to the emergency room for a evaluation. Patient arrival here is in no respiratory distress denying current chest pain no abdominal pain or discomfort nausea vomiting or diarrhea REVIEW OF SYSTEMS: Respiratory: Cough shortness of breath Cardiovascular: chest pain, no palpitations. Gastrointestinal: No vomiting, no abdominal pain. Musculoskeletal: No back pain. Remainder of the 14 system rev: Yes Allergies: Coded Allergies: aripiprazole (Verified Allergy, Intermediate, RASH, 07/14/18) lithium (Verified Allergy, Intermediate, RASH, 07/14/18) lurasidone (Verified Allergy, Intermediate, 07/14/18) quetiapine (Verified Allergy, Intermediate, DIZZY, 07/14/18) DIzzy varenicline (Verified Allergy, Intermediate, SWELLING, 07/14/18) ciprofloxacin (Verified Allergy, Mild, N/V, 07/14/18) sulfamethoxazole (Verified Allergy, Mild, HIVES, 07/14/18) topiramate (Verified Allergy, Mild, UPSET STOMACH, 07/14/18) Upset stomach trimethoprim (Verified Allergy, Mild, HIVES, 07/14/18) metoprolol (Verified Allergy, Unknown, 07/14/18) dyspnea haloperidol (Verified Adverse Reaction, Severe, DYSTONIC REACTION, 07/14/18) adhesive tape (Verified Adverse Reaction, Mild, RASH, 07/14/18) fluticasone (Verified Adverse Reaction, Mild, THRUSH, 07/14/18) salmeterol (Verified Adverse Reaction, Mild, THRUSH, 07/14/18) Home Meds Active Scripts Potassium Chloride (POTASSIUM CHLORIDE) 10 Meq Tab.er.prt, 10 MEQ PO QDAY for edema, #90 TAB 3 Refills Prov:SKINNY EMMANUEL MD 07/09/18 Famotidine (FAMOTIDINE) 20 Mg Tablet, 20 MG PO QDAY, #90 TAB 3 Refills Prov:SKINNY EMMANUEL MD 05/27/18 Hydrochlorothiazide (HYDROCHLOROTHIAZIDE) 25 Mg Tablet, 1 TAB PO QDAY, #30 TAB 11 Refills Prov:SKINNY EMMANUEL MD 05/05/18 Tiotropium [place] (SPIRIVA) 18 Mcg/Cap Inh, 2 PUFF INH DAILY, #1 INH 11 Refills Prov:SKINNY EMMANUEL MD 05/14/17 Reported Medications Melatonin (MELATONIN) 10 Mg Capsule, 10 MG PO QHS, CAPSULE 07/11/18 Melatonin/Pyridoxine (MELATONIN 5 MG TABLET) 1 Each Tablet, 2 EACH PO QHS 07/11/18 Bupropion Hcl (WELLBUTRIN SR) 150 Mg Tablet.er, 150 MG PO QDAY, TAB 07/11/18 Melatonin/Pyridoxine Hcl (B6) (MELATONIN 10 MG TABLET) 1 Each Tab.mphase, 1 EACH PO QHS 07/11/18 Hydroxyzine Pamoate (VISTARIL) 25 Mg Capsule, 25 MG PO Q8H PRN for ANXIETY/INSOMNIA, CAPSULE 07/11/18 Budesonide/Formoterol Fumarate (SYMBICORT 160-4.5 MCG INHALER) 10.2 Gm Inh, 2 PUFF INH BID, INH 07/09/18 Pantoprazole Sodium (PROTONIX) 40 Mg Granpkt.dr, 40 MG PO QDAY, PACK 06/29/18 Fluticasone/Vilanterol (Breo Ellipta 200-25 Mcg INH) 1 Each Blst.w.dev, 1 PUFF INH QDAY 05/28/18 Oxygen (OXYGEN) Inha, 2 L INH QDAY, L 01/09/18 Escitalopram Oxalate (ESCITALOPRAM OXALATE) 20 Mg Tablet, 20 MG PO QDAY 11/11/17 Pramipexole Di-Hcl (MIRAPEX) 1 Mg Tablet, 1 MG PO DAILY 11/11/17 Cholecalciferol (Vitamin D3) (VITAMIN D3) 1,000 Unit Tablet, 1000 UNIT PO QDAY, TAB 06/20/17 Albuterol Sulfate 90 Mcg/Act (PROAIR HFA 90 MCG/ACT) 8.5 Gm Hfa.aer.ad, 2 PUFF IH Q4-6H PRN for DYSPNEA, INHALER 01/27/17 Multivitamin (MULTIVITAMINS) 1 Each Capsule, 1 EACH PO DAILY, CAPSULE 12/08/16 Discontinued Reported Medications Bupropion Hcl (WELLBUTRIN SR) 150 Mg Tablet.er, 150 MG PO QDAY, TAB 11/11/17 Hydroxyzine Pamoate (HYDROXYZINE PAMOATE) 25 Mg Capsule, 25 TAB PO Q8H PRN for ANXIETY/INSOMNIA 01/27/17 Discontinued Scripts Prednisone (PREDNISONE) 20 Mg Tablet, 40 MG PO QDAY for 5 Days, #10 TAB Prov:GUTHRIE STEPHANIE MARROQUIN 06/30/18 Azithromycin (ZITHROMAX) 250 Mg Tablet, 1 TAB PO DIRECTED, #36 TAB 3 Refills Take three times a week on , Wednesdays and Fridays. Prov:SKINNY EMMANUEL MD 04/28/18 Reviewed Nurses Notes: Yes Old Medical Records Reviewed: Yes Hx Smoking: Yes Smoking Status: Current: Every Day Smoker Exposure to Second Hand Smoke?: Yes Hx Substance Use Disorder: No Hx Alcohol Use: Yes Constitutional Vital Sign - Last 24 Hours 07/14/18 07/14/18 07/14/18 07/14/18 15:58 16:15 16:58 16:58 Temp 98.6 Pulse 102 78 Resp 20 18 B/P (MAP) 150/86 Pulse Ox 92 93 O2 Delivery Nasal Cannula Nasal Cannula O2 Flow Rate 2.0 2.0 07/14/18 17:06 Pulse 84 Resp 18 Physical Exam General Appearance: The patient is alert, has no immediate need for airway protection and no current signs of toxicity. [ ] Eyes: Pupils equal and round no injection. Respiratory: Chest is non tender, lungs are coarse bibasilar with some mild end expiratory wheezing bilateral Cardiac: regular rate and rhythm [ ] Gastrointestinal: Abdomen is soft and non tender, no masses, bowel sounds normal. Musculoskeletal: Neck: Neck is supple and non tender. Extremities have full range of motion and are non tender. Skin: No rashes or lesions. [ ] DIFFERENTIAL DIAGNOSIS: After history and physical exam differential diagnosis was considered for exacerbation pneumonia pulmonary emboli bronchitis upper respiratory infection congestive heart failure heart attack Medical Decision Making Data Points Result Diagram: 07/14/18 1610 07/14/18 1610 Laboratory Hematology Test 07/14/18 16:10 07/14/18 16:32 Red Blood Count 4.34 M/uL (4.17-5.56) Mean Corpuscular Volume 90.3 fL (80.0-96.0) Mean Corpuscular Hemoglobin 30.3 pg (26.0-33.0) Mean Corpuscular Hemoglobin Concent 33.6 g/dL (32.0-36.0) Red Cell Distribution Width 13.1 % (11.5-14.5) Mean Platelet Volume 9.2 fL (7.2-11.1) Neutrophils (%) (Auto) 88.3 % (39.4-72.5) Lymphocytes (%) (Auto) 6.2 % (17.6-49.6) Monocytes (%) (Auto) 5.1 % (4.1-12.4) Eosinophils (%) (Auto) 0.0 % (0.4-6.7) Basophils (%) (Auto) 0.4 % (0.3-1.4) Nucleated RBC Relative Count (auto) 0.0 /100WBC Neutrophils # (Auto) 10.1 K/uL (2.0-7.4) Lymphocytes # (Auto) 0.7 K/uL (1.3-3.6) Monocytes # (Auto) 0.6 K/uL (0.3-1.0) Eosinophils # (Auto) 0.0 K/uL (0.0-0.5) Basophils # (Auto) 0.0 K/uL (0.0-0.1) Nucleated RBC Absolute Count (auto) 0.00 K/uL D-Dimer Quantitative (PE/DVT) < 0.27 ug/ml (0-0.50) Sodium Level 136 mmol/L (137-145) Potassium Level 3.6 mmol/L (3.5-5.0) Chloride Level 95 mmol/L (98-107) Carbon Dioxide Level 32 mmol/L (22-31) Blood Urea Nitrogen 18 mg/dl (7-18) Creatinine 1.20 mg/dl (0.52-1.04) Glomerular Filtration Rate Calc 46.8 Random Glucose 113 mg/dl (75-110) Calcium Level 9.5 mg/dl (8.4-10.2) Total Bilirubin < 0.1 mg/dl (0.2-1.3) Aspartate Amino Transf (AST/SGOT) 15 U/L (0-35) Alanine Aminotransferase (ALT/SGPT) 16 U/L (0-56) Alkaline Phosphatase 81 U/L (0-126) Troponin I < 0.012 ng/ml B-Type Natriuretic Peptide 18 pg/ml (0-100) Total Protein 7.0 g/dl (6.3-8.2) Albumin 4.1 g/dl (3.5-5.0) Blood Gas Puncture Site Right radial Blood Gas Patient Temperature 98.6 DEGREES Arterial Blood pH 7.43 (7.35-7.45) Arterial Blood Partial Pressure CO2 44 mmHg (32-37) Arterial Blood Partial Pressure O2 64 mmHg (60-80) Arterial Blood HCO3 29 mmol/L (20-26) Arterial Blood Oxygen Saturation 93 % (92-100) Arterial Blood Base Excess 5.0 mmol/L Jasmeet Test Acceptable Oxygen Liters/Minute 28% Chemistry Test 07/14/18 16:10 07/14/18 16:32 White Blood Count 11.5 k/uL (4.5-11.0) Red Blood Count 4.34 M/uL (4.17-5.56) Hemoglobin 13.2 g/dL (12.0-16.0) Hematocrit 39.2 % (34.0-47.0) Mean Corpuscular Volume 90.3 fL (80.0-96.0) Mean Corpuscular Hemoglobin 30.3 pg (26.0-33.0) Mean Corpuscular Hemoglobin Concent 33.6 g/dL (32.0-36.0) Red Cell Distribution Width 13.1 % (11.5-14.5) Platelet Count 255 K/uL (150-450) Mean Platelet Volume 9.2 fL (7.2-11.1) Neutrophils (%) (Auto) 88.3 % (39.4-72.5) Lymphocytes (%) (Auto) 6.2 % (17.6-49.6) Monocytes (%) (Auto) 5.1 % (4.1-12.4) Eosinophils (%) (Auto) 0.0 % (0.4-6.7) Basophils (%) (Auto) 0.4 % (0.3-1.4) Nucleated RBC Relative Count (auto) 0.0 /100WBC Neutrophils # (Auto) 10.1 K/uL (2.0-7.4) Lymphocytes # (Auto) 0.7 K/uL (1.3-3.6) Monocytes # (Auto) 0.6 K/uL (0.3-1.0) Eosinophils # (Auto) 0.0 K/uL (0.0-0.5) Basophils # (Auto) 0.0 K/uL (0.0-0.1) Nucleated RBC Absolute Count (auto) 0.00 K/uL D-Dimer Quantitative (PE/DVT) < 0.27 ug/ml (0-0.50) Glomerular Filtration Rate Calc 46.8 Calcium Level 9.5 mg/dl (8.4-10.2) Total Bilirubin < 0.1 mg/dl (0.2-1.3) Aspartate Amino Transf (AST/SGOT) 15 U/L (0-35) Alanine Aminotransferase (ALT/SGPT) 16 U/L (0-56) Alkaline Phosphatase 81 U/L (0-126) Troponin I < 0.012 ng/ml B-Type Natriuretic Peptide 18 pg/ml (0-100) Total Protein 7.0 g/dl (6.3-8.2) Albumin 4.1 g/dl (3.5-5.0) Blood Gas Puncture Site Right radial Blood Gas Patient Temperature 98.6 DEGREES Arterial Blood pH 7.43 (7.35-7.45) Arterial Blood Partial Pressure CO2 44 mmHg (32-37) Arterial Blood Partial Pressure O2 64 mmHg (60-80) Arterial Blood HCO3 29 mmol/L (20-26) Arterial Blood Oxygen Saturation 93 % (92-100) Arterial Blood Base Excess 5.0 mmol/L Jasmeet Test Acceptable Oxygen Liters/Minute 28% Coagulation Test 07/14/18 16:10 D-Dimer Quantitative (PE/DVT) < 0.27 ug/ml ED Course/Re-evaluation ED Course Medical decision-making 52-year-old female long history of COPD this is her 15th visit to the emergency department the last 4 months returns again to the emergency department with a complaint of shortness of breath she is still smoking or workup is essentially negative chest x-ray she's got some mild CO2 retention ABG otherwise unremarkable she has coarse breath sounds gave her a breathing treatment was advised smoking cessation take her medications and follow with pulmonology Decision to Disposition Date: Jul 14, 2018 Decision to Disposition Time: 17:23 Depart Departure Latest Vital Signs Vital Signs Date Time Temp Pulse Resp B/P (MAP) Pulse Ox O2 Delivery O2 Flow Rate FiO2 07/14/18 17:06 84 18 07/14/18 16:58 93 Nasal Cannula 2.0 07/14/18 15:58 98.6 150/86 Core Temperature (Celsius): 37.23 Impression: Primary Impression: COPD (chronic obstructive pulmonary disease) Condition: Improved Disposition: HOME OR SELF-CARE Referrals: SKINNY EMMANUEL MD (PCP) 2 Days Patient Instructions: COPD (Chronic Obstructive Pulmonary Disease) (DC) NATHALY CUELLAR MD Jul 14, 2018 16:15
[2018-07-14 16:21] LABS: PLATELET COUNT, AUTOMATED 255 K/uL (150-450)
--- NOTE | 2018-07-14 17:06 | RADIOLOGY IMAGING REPORT ---
[place] [facility] [place] NAME: Natividad Loaiza : 1965 MR: [id number] V: [id number] EXAM DATE: ORDERING PHYSICIAN: NATHALY CUELLAR TECHNOLOGIST: Location: [facility] Patient: Natividad Loaiza : 1965 Visit/Account:[id number] Date of Sevice: 07/14/2018 Exam type: CHEST PA LAT History: Shortness of breath, 2 L OF OXYGEN, COPD Comparison: July 04, 2018. Findings: Lungs appear free of acute effusions, infiltrates or edema. Cardiac silhouette is normal in size. T he trachea is in midline. There is no evidence of a pneumothorax or pneumomediastinum. There are ramos rgical clips the right upper abdomen. IMPRESSION: 1. No acute cardiopulmonary process is seen Report Dictated By: Cris Verma MD at 07/14/2018 5:01 PM Report E-Signed By: Cris Verma MD at 07/14/2018 5:02 PM WSN:[email or web address]
--- NOTE | 2018-07-14 17:36 | EKG ---
FACILITY: [facility] PATIENT NAME: FLORENCIO CRUZ : [id number] MR: [id number] V: [id number] EXAM DATE: ORDERING PHYSICIAN: NATHALY CUELLAR TECHNOLOGIST: Test Reason : SOB Blood Pressure : / mmHG Vent. Rate : 086 BPM Atrial Rate : 086 BPM P-R Int : 150 ms QRS Dur : 082 ms QT Int : 398 ms P-R-T Axes : 064 057 064 degrees QTc Int : 476 ms Normal sinus rhythm Normal ECG When compared with ECG of 04-JUL-2018 13:11, No significant change was found Confirmed by STEFANI HERNANDEZ ([id number]) on 07/15/2018 6:38:28 AM Referred By: Confirmed By:STEFANI HERNANDEZ
== END 2018-07-14 17:35 | disposition home or self-care (01) ==
LOC: ER 16:25
DX: J44.9 Chronic obstructive pulmonary disease, unspecified (principal)
CPT/HCPCS: 36600; 71046; 82803; 83880; 84484; 85025; 85379; 93005; 94640; 96374; 99284; J2930; J7620; 82040; 82247; 82310; 82374; 82435; 82565; 82947; 84075; 84132; 84155; 84295; 84450; 84460; 84520

== ENCOUNTER → 2018-07-21 | Outpatient (CLI) | payer MEDICARE, BC ==
[2018-06-30 14:50] VITALS: BMI 46.9
--- NOTE | 2018-07-22 12:44 | RT HOLTER TEST ---
FACILITY: [facility] [place] PATIENT NAME: FLORENCIO CRUZ : [id number] MR: [id number] V: [id number] EXAM DATE: ORDERING PHYSICIAN: SKINNY EMMANUEL TECHNOLOGIST: REBEKAH Hook-up date: 2018-07-21 11:10:00 Duration: 24:00:00 Test Indications: TACHYCARDIA Medications: 388510 QRS complexes 391 Ventricular ectopics which represent <1 % of total QRS comp. 30 Supraventricular ectopics which represent <1 % of total QRS comp. * Paced QRS complexes which represent % of total QRS comp. VENTRICULAR ECTOPY 391 Isolated 0 Bigeminal Cycles 0 Couplets 0 Runs 0 Beats in Runs * Beats LONGEST at * BPM at :: -- * Beats FASTEST at * BPM at :: -- SUPRAVENTRICULAR ECTOPY 30 Isolated 0 Couplets 0 Runs 0 Beats in Runs * Beats LONGEST at * BPM at :: -- * Beats FASTEST at * BPM at :: -- HEART RATES 65 MIN at 00:39:38 2018-07-22 96 AVG 142 MAX at 15:54:19 2018-07-21 LONGEST RR 1.128 secs at 05:41:03 2018-07-22 S-T LEVELS Channel 1 -12.800 mm MIN at 11:10:00 2018-07-21 -12.800 mm MAX at 11:10:00 2018-07-21 Channel 2 -12.800 mm MIN at 11:10:00 2018-07-2112.800 mm MAX at 11:10:00 2018-07-21 Channel 3 -12.800 mm MIN at 11:10:00 2018-07-21 -12.800 mm MAX at 11:10:00 2018-07-21 Sinus tachycardia Premature ventricular complexes Confirmed by STEFANI HERNANDEZ ([id number]) on 07/22/2018 12:43:54 PM Referred By: Overread By: STEFANI HERNANDEZ
== END ==
LOC: RESP 01:05
PROVIDERS: ATTEND Emergency Medicine
DX: I49.3 Ventricular premature depolarization (principal)
CPT/HCPCS: 93225; 93226

== ENCOUNTER 2018-08-06 20:15 | Emergency (ER) | payer MEDICARE, BC ==
[2018-06-30 14:50] VITALS: Wt 121.1 kg
[2018-08-06] MEDS ORDERED: SERT25TA90 PO (20:27)
--- NOTE | 2018-08-06 20:27 | ER Report ---
History and Physical Time Seen By MD: 20:27 Hx. of Stated Complaint: PT REPORTS BAD DIARRHEA FOR PAST 2 DAYS WITH INTENSE NAUSEA. HPI/ROS CHIEF COMPLAINT: Diarrhea and vomiting HISTORY OF PRESENT ILLNESS: This is a 52-year-old female. She is had 2 days of significant diarrhea. Yellow and watery. No blood seen or melena. Has had some intermittent nausea. Has been trying to drink fluids has been able to keep a little bit of nathan heaven down. Has not been able to eat because of nausea. A few episodes of vomiting. Has diffuse abdominal pain across the upper abdomen with this. Has a little bit of back pain but has this chronically. Denies any fevers or chills. Urine has been a little darker but denies dysuria, no decreased urination as well. Allergies: Coded Allergies: aripiprazole (Verified Allergy, Intermediate, RASH, 08/06/18) escitalopram (Verified Allergy, Intermediate, RASH, 08/06/18) lithium (Verified Allergy, Intermediate, RASH, 08/06/18) lurasidone (Verified Allergy, Intermediate, 08/06/18) quetiapine (Verified Allergy, Intermediate, DIZZY, 08/06/18) DIzzy varenicline (Verified Allergy, Intermediate, SWELLING, 08/06/18) ciprofloxacin (Verified Allergy, Mild, N/V, 08/06/18) sulfamethoxazole (Verified Allergy, Mild, HIVES, 08/06/18) topiramate (Verified Allergy, Mild, UPSET STOMACH, 08/06/18) Upset stomach trimethoprim (Verified Allergy, Mild, HIVES, 08/06/18) metoprolol (Verified Allergy, Unknown, 08/06/18) dyspnea haloperidol (Verified Adverse Reaction, Severe, DYSTONIC REACTION, 08/06/18) adhesive tape (Verified Adverse Reaction, Mild, RASH, 08/06/18) fluticasone (Verified Adverse Reaction, Mild, THRUSH, 08/06/18) salmeterol (Verified Adverse Reaction, Mild, THRUSH, 08/06/18) Home Meds Active Scripts Ondansetron 4 Mg Odt (ONDANSETRON 4 MG ODT) 4 Mg Tab.rapdis, 4 MG PO Q6H PRN for NAUSEA/VOMITING, #20 TAB 0 Refills Prov:GARY RODRIGUEZ MD 08/06/18 Azithromycin (ZITHROMAX) 250 Mg Tablet, 1 TAB PO DIRECTED, #36 TAB 3 Refills Take three times a week on , Wednesdays and Fridays. Prov:SKINNY EMMANUEL MD 07/30/18 Pramipexole Di-Hcl (MIRAPEX) 1 Mg Tablet, 1 MG PO DAILY, #90 TAB 3 Refills Prov:SKINNY EMMANUEL MD 07/30/18 Potassium Chloride (POTASSIUM CHLORIDE) 10 Meq Tab.er.prt, 10 MEQ PO QDAY for edema, #90 TAB 3 Refills Prov:SKINNY EMMANUEL MD 07/09/18 Famotidine (FAMOTIDINE) 20 Mg Tablet, 20 MG PO QDAY, #90 TAB 3 Refills Prov:SKINNY EMMANUEL MD 05/27/18 Hydrochlorothiazide (HYDROCHLOROTHIAZIDE) 25 Mg Tablet, 1 TAB PO QDAY, #30 TAB 11 Refills Prov:SKINNY EMMANUEL MD 05/05/18 Tiotropium [place] (SPIRIVA) 18 Mcg/Cap Inh, 2 PUFF INH DAILY, #1 INH 11 Refills Prov:SKINNY EMMANUEL MD 05/14/17 Reported Medications Sertraline Hcl (SERTRALINE HCL) 25 Mg Tablet, 1 TAB PO QDAY, TAB 08/06/18 Melatonin (MELATONIN) 10 Mg Capsule, 10 MG PO QHS, CAPSULE 07/11/18 Melatonin/Pyridoxine (MELATONIN 5 MG TABLET) 1 Each Tablet, 2 EACH PO QHS 07/11/18 Bupropion Hcl (WELLBUTRIN SR) 150 Mg Tablet.er, 150 MG PO QDAY, TAB 07/11/18 Melatonin/Pyridoxine Hcl (B6) (MELATONIN 10 MG TABLET) 1 Each Tab.mphase, 1 EACH PO QHS 07/11/18 Hydroxyzine Pamoate (VISTARIL) 25 Mg Capsule, 25 MG PO Q8H PRN for ANXIETY/INSOM RMOAN, CAPSULE 07/11/18 Budesonide/Formoterol Fumarate (SYMBICORT 160-4.5 MCG INHALER) 10.2 Gm Inh, 2 PUFF INH BID, INH 07/09/18 Pantoprazole Sodium (PROTONIX) 40 Mg Granpkt.dr, 40 MG PO QDAY, PACK 06/29/18 Fluticasone/Vilanterol (Breo Ellipta 200-25 Mcg INH) 1 Each Blst.w.dev, 1 PUFF INH QDAY 05/28/18 Oxygen (OXYGEN) Inha, 2 L INH QDAY, L 01/09/18 Escitalopram Oxalate (ESCITALOPRAM OXALATE) 20 Mg Tablet, 20 MG PO QDAY 11/11/17 Cholecalciferol (Vitamin D3) (VITAMIN D3) 1,000 Unit Tablet, 1000 UNIT PO QDAY, TAB 06/20/17 Albuterol Sulfate 90 Mcg/Act (PROAIR HFA 90 MCG/ACT) 8.5 Gm Hfa.aer.ad, 2 PUFF IH Q4-6H PRN for DYSPNEA, INHALER 01/27/17 Multivitamin (MULTIVITAMINS) 1 Each Capsule, 1 EACH PO DAILY, CAPSULE 12/08/16 Reviewed Nurses Notes: Yes Hx Smoking: Yes Smoking Status: Current: Every Day Smoker Exposure to Second Hand Smoke?: Yes Hx Substance Use Disorder: No Hx Alcohol Use: Yes Constitutional Vital Sign - Last 24 Hours 08/06/18 08/06/18 08/06/18 08/06/18 20:15 20:21 20:22 20:30 Temp 99.0 Pulse ??? 126 Resp 20 B/P (MAP) 117/85 117/85 (96) Pulse Ox 88 O2 Delivery Room Air O2 Flow Rate 2.5 08/06/18 08/06/18 08/06/18 08/06/18 20:30 20:45 21:00 21:15 Pulse ??? 86 B/P (MAP) 112/76 (88) 119/81 (94) Pulse Ox 97 08/06/18 08/06/18 08/06/18 21:30 21:45 21:53 Pulse 83 B/P (MAP) 117/58 (77) 123/75 (91) Pulse Ox 97 Physical Exam General Appearance: The patient is alert. No acute distress. Eyes: Pupils are equal, round. No pallor, injection or icterus. ENT: Mucous membranes are little dry. Normal oral mucosa. Posterior oropharynx is normal. Neck: Supple and non tender. Respiratory: Lungs are clear to auscultation. Cardiovascular: Regular rate and rhythm. No murmurs, gallops or rubs. Normal capillary refill. Gastrointestinal: Abdomen is soft, discomfort across the upper abdomen. Nondistended. No rebound or guarding. No masses or organomegaly. Hyperactive bowel sounds. No costovertebral angle tenderness with percussion. Neurological: Alert and oriented x3. No focal neurologic deficits Skin: Warm and dry. DIFFERENTIAL DIAGNOSIS: After history and physical exam, differential diagnosis was considered for patient with abdominal pain and diarrhea and vomiting, likely viral syndrome, we'll check labs, hydrate and give Zofran, check abdominal 3 view. Medical Decision Making Data Points Result Diagram: 08/06/18202408/06/182024 Laboratory Hematology Test 08/06/18 20:19 08/06/18 20:25 Urine Color Yellow Urine Clarity Slightly-cloudy Urine pH 5.0 pH (4.8-9.5) Urine Specific [place] 1.013 Urine Protein Negative mg/dL (NEGATIVE) Urine Glucose (UA) Negative mg/dL (NEGATIVE) Urine Ketones Negative mg/dL (NEGATIVE) Urine Blood Negative (NEGATIVE) Urine Nitrite Negative (NEGATIVE) Urine Bilirubin Negative (NEGATIVE) Urine Urobilinogen Negative mg/dL (0.2-1.9) Urine Leukocyte Esterase Trace (NEGATIVE) Urine RBC 1 /HPF (0-2/HPF) Urine WBC 4 /HPF (0-5/HPF) Urine Squamous Epithelial Cells Many /LPF (</=FEW) Urine Bacteria Few /HPF (NONE-FEW) Urine Mucus Few /HPF (NONE-FEW) Red Blood Count 4.79 M/uL (4.17-5.56) Mean Corpuscular Volume 89.0 fL (80.0-96.0) Mean Corpuscular Hemoglobin 30.3 pg (26.0-33.0) Mean Corpuscular Hemoglobin Concent 34.1 g/dL (32.0-36.0) Red Cell Distribution Width 13.0 % (11.5-14.5) Mean Platelet Volume 9.5 fL (7.2-11.1) Neutrophils (%) (Auto) 67.2 % (39.4-72.5) Lymphocytes (%) (Auto) 22.6 % (17.6-49.6) Monocytes (%) (Auto) 8.8 % (4.1-12.4) Eosinophils (%) (Auto) 0.9 % (0.4-6.7) Basophils (%) (Auto) 0.5 % (0.3-1.4) Nucleated RBC Relative Count (auto) 0.1 /100WBC Neutrophils # (Auto) 5.6 K/uL (2.0-7.4) Lymphocytes # (Auto) 1.9 K/uL (1.3-3.6) Monocytes # (Auto) 0.7 K/uL (0.3-1.0) Eosinophils # (Auto) 0.1 K/uL (0.0-0.5) Basophils # (Auto) 0.0 K/uL (0.0-0.1) Nucleated RBC Absolute Count (auto) 0.01 K/uL Sodium Level 136 mmol/L (137-145) Potassium Level 3.3 mmol/L (3.5-5.0) Chloride Level 97 mmol/L (98-107) Carbon Dioxide Level 32 mmol/L (22-31) Blood Urea Nitrogen 19 mg/dl (7-18) Creatinine 1.30 mg/dl (0.52-1.04) Glomerular Filtration Rate Calc 42.7 Random Glucose 104 mg/dl (75-110) Calcium Level 10.0 mg/dl (8.4-10.2) Total Bilirubin < 0.1 mg/dl (0.2-1.3) Aspartate Amino Transf (AST/SGOT) 18 U/L (0-35) Alanine Aminotransferase (ALT/SGPT) 21 U/L (0-56) Alkaline Phosphatase 94 U/L (0-126) Total Protein 7.2 g/dl (6.3-8.2) Albumin 4.1 g/dl (3.5-5.0) Amylase Level 50 U/L (0-110) Lipase 126 U/L (23-300) Chemistry Test 08/06/18 20:19 08/06/18 20:25 Urine Color Yellow Urine Clarity Slightly-cloudy Urine pH 5.0 pH (4.8-9.5) Urine Specific [place] 1.013 Urine Protein Negative mg/dL (NEGATIVE) Urine Glucose (UA) Negative mg/dL (NEGATIVE) Urine Ketones Negative mg/dL (NEGATIVE) Urine Blood Negative (NEGATIVE) Urine Nitrite Negative (NEGATIVE) Urine Bilirubin Negative (NEGATIVE) Urine Urobilinogen Negative mg/dL (0.2-1.9) Urine Leukocyte Esterase Trace (NEGATIVE) Urine RBC 1 /HPF (0-2/HPF) Urine WBC 4 /HPF (0-5/HPF) Urine Squamous Epithelial Cells Many /LPF (</=FEW) Urine Bacteria Few /HPF (NONE-FEW) Urine Mucus Few /HPF (NONE-FEW) White Blood Count 8.3 k/uL (4.5-11.0) Red Blood Count 4.79 M/uL (4.17-5.56) Hemoglobin 14.5 g/dL (12.0-16.0) Hematocrit 42.6 % (34.0-47.0) Mean Corpuscular Volume 89.0 fL (80.0-96.0) Mean Corpuscular Hemoglobin 30.3 pg (26.0-33.0) Mean Corpuscular Hemoglobin Concent 34.1 g/dL (32.0-36.0) Red Cell Distribution Width 13.0 % (11.5-14.5) Platelet Count 254 K/uL (150-450) Mean Platelet Volume 9.5 fL (7.2-11.1) Neutrophils (%) (Auto) 67.2 % (39.4-72.5) Lymphocytes (%) (Auto) 22.6 % (17.6-49.6) Monocytes (%) (Auto) 8.8 % (4.1-12.4) Eosinophils (%) (Auto) 0.9 % (0.4-6.7) Basophils (%) (Auto) 0.5 % (0.3-1.4) Nucleated RBC Relative Count (auto) 0.1 /100WBC Neutrophils # (Auto) 5.6 K/uL (2.0-7.4) Lymphocytes # (Auto) 1.9 K/uL (1.3-3.6) Monocytes # (Auto) 0.7 K/uL (0.3-1.0) Eosinophils # (Auto) 0.1 K/uL (0.0-0.5) Basophils # (Auto) 0.0 K/uL (0.0-0.1) Nucleated RBC Absolute Count (auto) 0.01 K/uL Glomerular Filtration Rate Calc 42.7 Calcium Level 10.0 mg/dl (8.4-10.2) Total Bilirubin < 0.1 mg/dl (0.2-1.3) Aspartate Amino Transf (AST/SGOT) 18 U/L (0-35) Alanine Aminotransferase (ALT/SGPT) 21 U/L (0-56) Alkaline Phosphatase 94 U/L (0-126) Total Protein 7.2 g/dl (6.3-8.2) Albumin 4.1 g/dl (3.5-5.0) Amylase Level 50 U/L (0-110) Lipase 126 U/L (23-300) Urinalysis Test 08/06/18 20:19 Urine Color Yellow Urine Clarity Slightly-cloudy Urine pH 5.0 pH (4.8-9.5) Urine Specific [place] 1.013 Urine Protein Negative mg/dL (NEGATIVE) Urine Glucose (UA) Negative mg/dL (NEGATIVE) Urine Ketones Negative mg/dL (NEGATIVE) Urine Blood Negative (NEGATIVE) Urine Nitrite Negative (NEGATIVE) Urine Bilirubin Negative (NEGATIVE) Urine Urobilinogen Negative mg/dL (0.2-1.9) Urine Leukocyte Esterase Trace (NEGATIVE) Urine RBC 1 /HPF (0-2/HPF) Urine WBC 4 /HPF (0-5/HPF) Urine Squamous Epithelial Cells Many /LPF (</=FEW) Urine Bacteria Few /HPF (NONE-FEW) Urine Mucus Few /HPF (NONE-FEW) EKG/Imaging Imaging INDICATION: Diarrhoea, vomiting, abdominal pain. EXAM DATE: 08/06/2018 8:36 PM COMPARISON: Abdomen radiographs 03/24/2018 and previous. FINDINGS: PA view the chest with upright and spine AP views of the abdomen. The lungs are well-expanded and clear. No pleural effusion or pneumothorax. Heart size is normal. Bowel gas pattern is nonobstructive. No pneumatosis, pneumoperitoneum or portal venous gas. No evidence of large volume ascites or mass. Cholecystectomy clips. No acute osseous abnormality. IMPRESSION: No acute abnormality. Report Dictated By: Ramiro Rehman MD at 08/06/2018 9:24 PM ED Course/Re-evaluation Clinical Indication for ER IV: Hydration, IV Access ED Course Mild changes in metabolic panel consistent with dehydration and vomiting/diarrhea that she is reporting. Hydrated with a liter of normal saline. Given Zofran 4mg IV. Feeling better. Should improve with increased PO intake with Zofran to help with nausea and over the counter Immodium to help with diarrhea. Decision to Disposition Date: August 06, 2018 Decision to Disposition Time: 21:46 Depart Departure Latest Vital Signs Vital Signs Date Time Temp Pulse Resp B/P (MAP) Pulse Ox O2 Delivery O2 Flow Rate FiO2 08/06/18 21:53 123/75 (91) 08/06/18 21:45 83 97 08/06/18 20:30 2.5 08/06/18 20:21 99.0 20 Room Air Core Temperature (Celsius): 37.23 Impression: Primary Impression: Gastroenteritis Condition: Improved Disposition: HOME OR SELF-CARE Referrals: SKINNY EMMANUEL MD (PCP) New Scripts Ondansetron 4 Mg Odt (ONDANSETRON 4 MG ODT) 4 Mg Tab.rapdis 4 MG PO Q6H PRN for NAUSEA/VOMITING, #20 TAB 0 Refills Prov: GARY RODRIGUEZ MD 08/06/18 Patient Instructions: Gastroenteritis (ED) Additional Instructions: Rest and light activity for the next 1-2 days. Increase fluid intake. When able to eat solids, stick with a bland or BRAT diet for the next 24 hours or so. Zofran 4mg one every 6 hours as needed for nausea or vomiting. You can try some over the counter Imodium to help with diarrhea if needed. GARY RODRIGUEZ MD August 06, 2018 20:27
[2018-08-06] MEDS ORDERED: NS(*) 0.9% 1000 ML BAG 1,000 ML IV ONE (20:40)
[2018-08-06] MEDS ORDERED: ONDANSETRON 4 MG/2 ML VIAL IVP ONE (20:40)
[2018-08-06 20:56] LABS: PLATELET COUNT, AUTOMATED 254 K/uL (150-450)
--- NOTE | 2018-08-06 21:30 | RADIOLOGY IMAGING REPORT ---
FACILITY: [facility] [place]IENT NAME: Natividad Loaiza : 1965 MR: [id number] V: [id number] EXAM DATE: ORDERING PHYSICIAN: GARY RODRIGUEZ TECHNOLOGIST: Location: [facility] - [place] Patient: Natividad Loaiza : 1965 Visit/Account:[id number] Date of Sevice: 08/06/2018 INDICATION: Diarrhoea, vomiting, abdominal pain. EXAM DATE: 08/06/2018 8:36 PM COMPARISON: Abdomen radiographs 03/24/2018 and previous. FINDINGS: PA view the chest with upright and spine AP views of the abdomen. The lungs are well-expanded and clear. No pleural effusion or pneumothorax. Heart size is normal. Bowel gas pattern is nonobstructive. No pneumatosis, pneumoperitoneum or portal venous gas. No eviden ce of large volume ascites or mass. Cholecystectomy clips. No acute osseous abnormality. IMPRESSION: No acute abnormality. Report Dictated By: Ramiro Rehman MD at 08/06/2018 9:24 PM Report E-Signed By: Ramiro Rehman MD at 08/06/2018 9:26 PM WSN:[id number]
[2018-08-06] MEDS ORDERED: ONDA4TAB9 PO (21:47)
[2018-08-06] MEDS ORDERED: ONDANSETRON 4 MG ODT TH SL ONE (21:50)
[2018-08-06 21:53] VITALS: BP 123/75
== END 2018-08-06 22:00 | disposition home or self-care (01) ==
LOC: ER 20:29
DX: K52.9 Noninfective gastroenteritis and colitis, unspecified (principal)
CPT/HCPCS: 74022; 81001; 82150; 83690; 85025; 96361; 96374; 99283; J2405; J7030; Q0162; 82040; 82247; 82310; 82374; 82435; 82565; 82947; 84075; 84132; 84155; 84295; 84450; 84460; 84520; S0119

== ENCOUNTER 2018-08-10 00:09 | Emergency (ER) | payer MEDICARE, BC ==
[2018-06-30 14:50] VITALS: Wt 122.5 kg
[~2018-08-10 00:09] MED LIST changes: +SERT25TA90 PO
--- NOTE | 2018-08-10 00:11 | ER Report ---
History and Physical Time Seen By MD: 00:11 HPI/ROS CHIEF COMPLAINT: Vomiting, diarrhea, right-sided crampy abdominal pain HISTORY OF PRESENT ILLNESS: 53-year-old female presents to the ER complaining of vomiting and diarrhea. She was seen here in the ER 3 days ago with vomiting and diarrhea. She was discharged home on Zofran and Imodium. She subsequently got better and had no symptoms yesterday but today she had episodes of vomiting and diarrhea. She notes crampy right-sided abdominal pain that shoots down the right flank toward her pelvis. Patient notes no blood or melena in the diarrhea. She notes no blood in emesis. She's only had one episode of vomiting today. She did not take Zofran. Patient has a history of COPD O2 dependent with sleep apnea. She notes no difficulty breathing. Patient reports that she always has chronic right upper quadrant abdominal ache, but it is much worse than usual tonight. REVIEW OF SYSTEMS: Respiratory: No cough, no dyspnea. Cardiovascular: No chest pain, no palpitations. Gastrointestinal: As above Musculoskeletal: No back pain. Allergies: Coded Allergies: aripiprazole (Verified Allergy, Intermediate, RASH, 08/10/18) escitalopram (Verified Allergy, Intermediate, RASH, 08/10/18) lithium (Verified Allergy, Intermediate, RASH, 08/10/18) lurasidone (Verified Allergy, Intermediate, 08/10/18) quetiapine (Verified Allergy, Intermediate, DIZZY, 08/10/18) DIzzy varenicline (Verified Allergy, Intermediate, SWELLING, 08/10/18) ciprofloxacin (Verified Allergy, Mild, N/V, 08/10/18) sulfamethoxazole (Verified Allergy, Mild, HIVES, 08/10/18) topiramate (Verified Allergy, Mild, UPSET STOMACH, 08/10/18) Upset stomach trimethoprim (Verified Allergy, Mild, HIVES, 08/10/18) metoprolol (Verified Allergy, Unknown, 08/10/18) dyspnea haloperidol (Verified Adverse Reaction, Severe, DYSTONIC REACTION, 08/10/18) adhesive tape (Verified Adverse Reaction, Mild, RASH, 08/10/18) fluticasone (Verified Adverse Reaction, Mild, THRUSH, 08/10/18) salmeterol (Verified Adverse Reaction, Mild, THRUSH, 08/10/18) Home Meds Active Scripts Ondansetron 4 Mg Odt (ONDANSETRON 4 MG ODT) 4 Mg Tab.rapdis, 4 MG PO Q6H PRN for NAUSEA/VOMITING, #20 TAB 0 Refills Prov:GARY RODRIGUEZ MD 08/06/18 Azithromycin (ZITHROMAX) 250 Mg Tablet, 1 TAB PO DIRECTED, #36 TAB 3 Refills Take three times a week on , Wednesdays and Fridays. Prov:SKINNY EMMANUEL MD 07/30/18 Pramipexole Di-Hcl (MIRAPEX) 1 Mg Tablet, 1 MG PO DAILY, #90 TAB 3 Refills Prov:SKINNY EMMANUEL MD 07/30/18 Potassium Chloride (POTASSIUM CHLORIDE) 10 Meq Tab.er.prt, 10 MEQ PO QDAY for edema, #90 TAB 3 Refills Prov:SKINNY EMMANUEL MD 07/09/18 Famotidine (FAMOTIDINE) 20 Mg Tablet, 20 MG PO QDAY, #90 TAB 3 Refills Prov:SKINNY EMMANUEL MD 05/27/18 Hydrochlorothiazide (HYDROCHLOROTHIAZIDE) 25 Mg Tablet, 1 TAB PO QDAY, #30 TAB 11 Refills Prov:SKINNY EMMANUEL MD 05/05/18 Tiotropium [place] (SPIRIVA) 18 Mcg/Cap Inh, 2 PUFF INH DAILY, #1 INH 11 Refills Prov:SKINNY EMMANUEL MD 05/14/17 Reported Medications Sertraline Hcl (ZOLOFT) 50 Mg Tablet, 1 TAB PO QDAY, TAB 08/10/18 Melatonin (MELATONIN) 10 Mg Capsule, 10 MG PO QHS, CAPSULE 07/11/18 Melatonin/Pyridoxine (MELATONIN 5 MG TABLET) 1 Each Tablet, 2 EACH PO QHS 07/11/18 Bupropion Hcl (WELLBUTRIN SR) 150 Mg Tablet.er, 150 MG PO QDAY, TAB 07/11/18 Melatonin/Pyridoxine Hcl (B6) (MELATONIN 10 MG TABLET) 1 Each Tab.mphase, 1 EACH PO QHS 07/11/18 Hydroxyzine Pamoate (VISTARIL) 25 Mg Capsule, 25 MG PO Q8H PRN for A NXIETY/INSOMNIA, CAPSULE 07/11/18 Budesonide/Formoterol Fumarate (SYMBICORT 160-4.5 MCG INHALER) 10.2 Gm Inh, 2 PUFF INH BID, INH 07/09/18 Pantoprazole Sodium (PROTONIX) 40 Mg Granpkt.dr, 40 MG PO QDAY, PACK 06/29/18 Fluticasone/Vilanterol (Breo Ellipta 200-25 Mcg INH) 1 Each Blst.w.dev, 1 PUFF INH QDAY 05/28/18 Oxygen (OXYGEN) Inha, 2 L INH QDAY, L 01/09/18 Cholecalciferol (Vitamin D3) (VITAMIN D3) 1,000 Unit Tablet, 1000 UNIT PO QDAY, TAB 06/20/17 Albuterol Sulfate 90 Mcg/Act (PROAIR HFA 90 MCG/ACT) 8.5 Gm Hfa.aer.ad, 2 PUFF IH Q4-6H PRN for DYSPNEA, INHALER 01/27/17 Multivitamin (MULTIVITAMINS) 1 Each Capsule, 1 EACH PO DAILY, CAPSULE 12/08/16 Discontinued Reported Medications Sertraline Hcl (SERTRALINE HCL) 25 Mg Tablet, 1 TAB PO QDAY, TAB 08/06/18 Escitalopram Oxalate (ESCITALOPRAM OXALATE) 20 Mg Tablet, 20 MG PO QDAY 11/11/17 Past Medical/Surgical History Past Medical History Cardiovascular: Reports hx of: hypertension Respiratory: Reports hx of: COPD (Uses supplemental O2, 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, [place]) sleep apnea (Uses BIPAP, since 04/2015) other respiratory history (Chronic repiratory failure with hypoxia) Gastrointestinal: Reports hx of: GERD Psychiatric: Reports hx of: depression psych hospitalization suicide attempt(s) (4 attempts, last attempt 01/26/17) other psychiatric history (somatic symptom disorder) Endocrine: Reports hx of: hypothyroidism Past Surgical History HEENT: Reports hx of: tonsillectomy (06/19) Gastrointestinal: Reports hx of: cholecystectomy (12/18/2015) Reviewed Nurses Notes: Yes Old Medical Records Reviewed: Yes Hx Smoking: Yes Smoking Status: Current: Every Day Smoker Exposure to Second Hand Smoke?: Yes Hx Substance Use Disorder: No Hx Alcohol Use: Yes Constitutional Vital Sign - Last 24 Hours 08/10/18 08/10/18 08/10/18 08/10/18 00:18 00:22 00:24 00:30 Temp 98.1 Pulse 101 ??? Resp 24 B/P (MAP) 126/78 (94) 126/78 118/75 (89) Pulse Ox 94 95 O2 Delivery Nasal Cannula 08/10/18 08/10/18 08/10/18 08/10/18 00:39 00:54 01:00 01:09 Pulse ??? 83 81 B/P (MAP) 112/66 (81) Pulse Ox 96 93 96 08/10/18 08/10/18 08/10/18 01:24 01:30 01:39 Pulse 83 86 B/P (MAP) 125/78 (94) Pulse Ox 94 95 Intake and Output 08/09/18 08/09/18 08/10/18 15:00 23:00 07:00 Intake Total 1000 ml Balance 1000 ml Physical Exam General Appearance: The patient is alert, has no immediate need for airway protection and no current signs of toxicity. Vital signs stable, afebrile, pulse ox normal HEENT: Pupils equal and round no injection. Oropharynx without redness or exudate, mucous members are moist Respiratory: Chest is non tender, lungs are clear to auscultation. Cardiac: regular rate and rhythm Gastrointestinal: Abdomen is soft, mild right upper quadrant tenderness, no rebound, guarding or Patel sign, no CVA tenderness, no masses, bowel sounds normal. Musculoskeletal: Neck: Neck is supple and non tender. Extremities have full range of motion and are non tender. Skin: No rashes or lesions. DIFFERENTIAL DIAGNOSIS: After history and physical exam differential diagnosis was considered for abdominal pain including but not limited to appendicitis, cholecystitis, gastroenteritis, food poisoning, viral syndrome gastritis and urinary tract infection. Medical Decision Making Data Points Result Diagram: 08/10/18 0040 08/10/180 Laboratory Hematology Test 08/10/18 00:15 08/10/18 00:40 Urine Color Yellow Urine Clarity Clear Urine pH 6.0 pH (4.8-9.5) Urine Specific [place] 1.006 Urine Protein Negative mg/dL (NEGATIVE) Urine Glucose (UA) Negative mg/dL (NEGATIVE) Urine Ketones Negative mg/dL (NEGATIVE) Urine Blood Negative (NEGATIVE) Urine Nitrite Negative (NEGATIVE) Urine Bilirubin Negative (NEGATIVE) Urine Urobilinogen Negative mg/dL (0.2-1.9) Urine Leukocyte Esterase Negative (NEGATIVE) Urine RBC None /HPF (0-2/HPF) Urine WBC 2 /HPF (0-5/HPF) Urine Squamous Epithelial Cells Many /LPF (</=FEW) Urine Transitional Epithelial Cells Few /LPF (NONE-FEW) Urine Bacteria Negative /HPF (NONE-FEW) Urine Mucus Few /HPF (NONE-FEW) Red Blood Count 4.25 M/uL (4.17-5.56) Mean Corpuscular Volume 88.8 fL (80.0-96.0) Mean Corpuscular Hemoglobin 31.0 pg (26.0-33.0) Mean Corpuscular Hemoglobin Concent 34.9 g/dL (32.0-36.0) Red Cell Distribution Width 13.1 % (11.5-14.5) Mean Platelet Volume 9.2 fL (7.2-11.1) Neutrophils (%) (Auto) 66.0 % (39.4-72.5) Lymphocytes (%) (Auto) 22.6 % (17.6-49.6) Monocytes (%) (Auto) 9.2 % (4.1-12.4) Eosinophils (%) (Auto) 1.3 % (0.4-6.7) Basophils (%) (Auto) 0.9 % (0.3-1.4) Nucleated RBC Relative Count (auto) 0.1 /100WBC Neutrophils # (Auto) 3.7 K/uL (2.0-7.4) Lymphocytes # (Auto) 1.3 K/uL (1.3-3.6) Monocytes # (Auto) 0.5 K/uL (0.3-1.0) Eosinophils # (Auto) 0.1 K/uL (0.0-0.5) Basophils # (Auto) 0.0 K/uL (0.0-0.1) Nucleated RBC Absolute Count (auto) 0.00 K/uL Sodium Level 134 mmol/L (137-145) Potassium Level 2.9 mmol/L (3.5-5.0) Chloride Level 96 mmol/L (98-107) Carbon Dioxide Level 36 mmol/L (22-31) Blood Urea Nitrogen 12 mg/dl (7-18) Creatinine 1.10 mg/dl (0.52-1.04) Glomerular Filtration Rate Calc 51.6 Random Glucose 111 mg/dl (75-110) Calcium Level 8.9 mg/dl (8.4-10.2) Total Bilirubin 0.2 mg/dl (0.2-1.3) Aspartate Amino Transf (AST/SGOT) 17 U/L (0-35) Alanine Aminotransferase (ALT/SGPT) 23 U/L (0-56) Alkaline Phosphatase 95 U/L (0-126) Total Protein 6.2 g/dl (6.3-8.2) Albumin 3.5 g/dl (3.5-5.0) Amylase Level 30 U/L (0-110) Lipase 88 U/L (23-300) Chemistry Test 08/10/18 00:15 08/10/18 00:40 Urine Color Yellow Urine Clarity Clear Urine pH 6.0 pH (4.8-9.5) Urine Specific [place] 1.006 Urine Protein Negative mg/dL (NEGATIVE) Urine Glucose (UA) Negative mg/dL (NEGATIVE) Urine Ketones Negative mg/dL (NEGATIVE) Urine Blood Negative (NEGATIVE) Urine Nitrite Negative (NEGATIVE) Urine Bilirubin Negative (NEGATIVE) Urine Urobilinogen Negative mg/dL (0.2-1.9) Urine Leukocyte Esterase Negative (NEGATIVE) Urine RBC None /HPF (0-2/HPF) Urine WBC 2 /HPF (0-5/HPF) Urine Squamous Epithelial Cells Many /LPF (</=FEW) Urine Transitional Epithelial Cells Few /LPF (NONE-FEW) Urine Bacteria Negative /HPF (NONE-FEW) Urine Mucus Few /HPF (NONE-FEW) White Blood Count 5.6 k/uL (4.5-11.0) Red Blood Count 4.25 M/uL (4.17-5.56) Hemoglobin 13.2 g/dL (12.0-16.0) Hematocrit 37.7 % (34.0-47.0) Mean Corpuscular Volume 88.8 fL (80.0-96.0) Mean Corpuscular Hemoglobin 31.0 pg (26.0-33.0) Mean Corpuscular Hemoglobin Concent 34.9 g/dL (32.0-36.0) Red Cell Distribution Width 13.1 % (11.5-14.5) Platelet Count 231 K/uL (150-450) Mean Platelet Volume 9.2 fL (7.2-11.1) Neutrophils (%) (Auto) 66.0 % (39.4-72.5) Lymphocytes (%) (Auto) 22.6 % (17.6-49.6) Monocytes (%) (Auto) 9.2 % (4.1-12.4) Eosinophils (%) (Auto) 1.3 % (0.4-6.7) Basophils (%) (Auto) 0.9 % (0.3-1.4) Nucleated RBC Relative Count (auto) 0.1 /100WBC Neutrophils # (Auto) 3.7 K/uL (2.0-7.4) Lymphocytes # (Auto) 1.3 K/uL (1.3-3.6) Monocytes # (Auto) 0.5 K/uL (0.3-1.0) Eosinophils # (Auto) 0.1 K/uL (0.0-0.5) Basophils # (Auto) 0.0 K/uL (0.0-0.1) Nucleated RBC Absolute Count (auto) 0.00 K/uL Glomerular Filtration Rate Calc 51.6 Calcium Level 8.9 mg/dl (8.4-10.2) Total Bilirubin 0.2 mg/dl (0.2-1.3) Aspartate Amino Transf (AST/SGOT) 17 U/L (0-35) Alanine Aminotransferase (ALT/SGPT) 23 U/L (0-56) Alkaline Phosphatase 95 U/L (0-126) Total Protein 6.2 g/dl (6.3-8.2) Albumin 3.5 g/dl (3.5-5.0) Amylase Level 30 U/L (0-110) Lipase 88 U/L (23-300) Urinalysis Test 08/10/18 00:15 Urine Color Yellow Urine Clarity Clear Urine pH 6.0 pH (4.8-9.5) Urine Specific [place] 1.006 Urine Protein Negative mg/dL (NEGATIVE) Urine Glucose (UA) Negative mg/dL (NEGATIVE) Urine Ketones Negative mg/dL (NEGATIVE) Urine Blood Negative (NEGATIVE) Urine Nitrite Negative (NEGATIVE) Urine Bilirubin Negative (NEGATIVE) Urine Urobilinogen Negative mg/dL (0.2-1.9) Urine Leukocyte Esterase Negative (NEGATIVE) Urine RBC None /HPF (0-2/HPF) Urine WBC 2 /HPF (0-5/HPF) Urine Squamous Epithelial Cells Many /LPF (</=FEW) Urine Transitional Epithelial Cells Few /LPF (NONE-FEW) Urine Bacteria Negative /HPF (NONE-FEW) Urine Mucus Few /HPF (NONE-FEW) ED Course/Re-evaluation Clinical Indication for ER IV: Hydration, IV Access ED Course Patient was admitted to an examination room. H&P was done. The differential diagnoses was considered. Patient with recurrence of her vomiting and diarrhea. She has right upper quadrant abdominal pain radiating down her back and flank. Peripheral IV was established. Patient was treated with IV fluid hydration, Zofran and Toradol. She's diagnostic laboratory studies returned unremarkable except for potassium of 2.9. Patient is already on replacement potassium s upplement. She's given 40 mEq of potassium by mouth. Patient's discharged home and advised to follow-up with primary care. Decision to Disposition Date: August 10, 2018 Decision to Disposition Time: 01:38 Depart Departure Latest Vital Signs Vital Signs Date Time Temp Pulse Resp B/P (MAP) Pulse Ox O2 Delivery O2 Flow Rate FiO2 08/10/18 01:39 86 95 08/10/18 01:30 125/78 (94) 08/10/18 00:22 98.1 24 Nasal Cannula Core Temperature (Celsius): 37.23 Impression: Primary Impression: Right upper quadrant abdominal pain Additional Impressions: Gastroenteritis Hypokalemia COPD (chronic obstructive pulmonary disease) Condition: Improved Disposition: HOME OR SELF-CARE Referrals: SKINNY EMMANUEL MD (PCP) Patient Instructions: Clear Liquid Diet (ED), Gastroenteritis (ED) Additional Instructions: Follow clear liquid diet for 24-48 hours, then advance to the brat diet, bananas, rice, applesauce and toast Follow-up with primary care if unimproved in 3-5 days Problem Qualifiers Additional Impressions: COPD (chronic obstructive pulmonary disease) COPD type: unspecified COPD Qualified Codes: J44.9 - Chronic obstructive pulmonary disease, unspecified DENIA PUGA DO August 10, 2018 00:11
[2018-08-10] MEDS ORDERED: SERT-1 PO (00:28)
[2018-08-10] MEDS ORDERED: NS(*) 0.9% 1000 ML BAG 1,000 ML IV ONE (00:29)
[2018-08-10] MEDS ORDERED: ONDANSETRON 4 MG/2 ML VIAL IVP ONE (00:30)
[2018-08-10] MEDS ORDERED: KETOROLAC 30 MG/ML VIAL IVP ONE (00:35)
[2018-08-10 01:09] LABS: PLATELET COUNT, AUTOMATED 231 K/uL (150-450)
[2018-08-10] MEDS ORDERED: POTASSIUM CHL 20 MEQ TABCR PO ONE (01:15)
[2018-08-10 01:30] VITALS: BP 125/78
== END 2018-08-10 01:54 | disposition home or self-care (01) ==
LOC: ER 00:45
DX: R10.11 Right upper quadrant pain (principal); K52.9 Noninfective gastroenteritis and colitis, unspecified; E87.6 Hypokalemia; J44.9 Chronic obstructive pulmonary disease, unspecified
CPT/HCPCS: 81001; 82150; 83690; 85025; 96361; 96374; 96375; 99284; A9270; J1885; J2405; J7030; 82040; 82247; 82310; 82374; 82435; 82565; 82947; 84075; 84132; 84155; 84295; 84450; 84460; 84520

== ENCOUNTER 2018-08-15 16:48 | Emergency (ER) | payer MEDICARE, BC ==
[2018-06-30 14:50] VITALS: Wt 124.7 kg
[~2018-08-15 16:48] MED LIST changes: +SERT-1 PO
[2018-08-15] MEDS ORDERED: NS(*) 0.9% 1000 ML BAG 1,000 ML IV ONE (17:45)
--- NOTE | 2018-08-15 17:45 | ER Report ---
History and Physical Time Seen By MD: 17:35 Hx. of Stated Complaint: patient reports upper right abdominal pain that radiates to the back that started this morning. Does not feel like the pain she was here for on the 7th / CHIEF COMPLAINT: Right upper quadrant abdominal pain, radiates through to back HISTORY OF PRESENT ILLNESS: 53-year-old female patient presents to emergency room with complaint of right upper quadrant abdominal pain. Patient says the pain seems to radiate through to the back. She states she's not had any nausea, vomiting or diarrhea. Patient states that she has not taken any medication for this. She states that she's been able to eat and drink without any difficulties and states that has not seen the pain worse. Patient states she does have a history of a cholecystectomy. Patient states that the pain seems to worsen when she coughs. She states that she's not had a more productive cough. She denies having any nausea, vomiting or diarrhea. Patient states she has pain that she rates 7-8 out of 10. REVIEW OF SYSTEMS: Respiratory: Patient does have cough Cardiovascular: No chest pain, no palpitations. Gastrointestinal: As noted above Musculoskeletal: No back pain. Allergies: Coded Allergies: aripiprazole (Verified Allergy, Intermediate, RASH, 08/10/18) escitalopram (Verified Allergy, Intermediate, RASH, 08/10/18) lithium (Verified Allergy, Intermediate, RASH, 08/10/18) lurasidone (Verified Allergy, Intermediate, 08/10/18) quetiapine (Verified Allergy, Intermediate, DIZZY, 08/10/18) DIzzy varenicline (Verified Allergy, Intermediate, SWELLING, 08/10/18) ciprofloxacin (Verified Allergy, Mild, N/V, 08/10/18) sulfamethoxazole (Verified Allergy, Mild, HIVES, 08/10/18) topiramate (Verified Allergy, Mild, UPSET STOMACH, 08/10/18) Upset stomach trimethoprim (Verified Allergy, Mild, HIVES, 08/10/18) metoprolol (Verified Allergy, Unknown, 08/10/18) dyspnea haloperidol (Verified Adverse Reaction, Severe, DYSTONIC REACTION, 08/10/18) adhesive tape (Verified Adverse Reaction, Mild, RASH, 08/10/18) fluticasone (Verified Adverse Reaction, Mild, THRUSH, 08/10/18) salmeterol (Verified Adverse Reaction, Mild, THRUSH, 08/10/18) Home Meds Active Scripts Tramadol Hcl (TRAMADOL HCL) 50 Mg Tablet, 50 MG PO Q4-6H PRN for PAIN, #8 TAB Prov:NINA GORDON CHRISTIANO 08/15/18 Ondansetron 4 Mg Odt (ONDANSETRON 4 MG ODT) 4 Mg Tab.rapdis, 4 MG PO Q6H PRN for NAUSEA/VOMITING, #20 TAB 0 Refills Prov:GARY RODRIGUEZ MD 08/06/18 Azithromycin (ZITHROMAX) 250 Mg Tablet, 1 TAB PO DIRECTED, #36 TAB 3 Refills Take three times a week on , Wednesdays and Fridays. Prov:SKINNY TREVINO MD 07/30/18 Pramipexole Di-Hcl (MIRAPEX) 1 Mg Tablet, 1 MG PO DAILY, #90 TAB 3 Refills Prov:SKINNY TREVINO MD 07/30/18 Potassium Chloride (POTASSIUM CHLORIDE) 10 Meq Tab.er.prt, 10 MEQ PO QDAY for edema, #90 TAB 3 Refills Prov:SKINNY TREVINO MD 07/09/18 Famotidine (FAMOTIDINE) 20 Mg Tablet, 20 MG PO QDAY, #90 TAB 3 Refills Prov:SKINNY TREVINO MD 05/27/18 Hydrochlorothiazide (HYDROCHLOROTHIAZIDE) 25 Mg Tablet, 1 TAB PO QDAY, #30 TAB 11 Refills Prov:SKINNY TREVINO MD 05/05/18 Tiotropium [place] (SPIRIVA) 18 Mcg/Cap Inh, 2 PUFF INH DAILY, #1 INH 11 Refills Prov:SKINNY TREVINO MD 05/14/17 Reported Medications Sertraline Hcl (ZOLOFT) 50 Mg Tablet, 1 TAB PO QDAY, TAB 08/10/18 Melatonin (MELATONIN) 10 Mg Capsule, 10 MG PO QHS, CAPSULE 07/11/18 Melatonin/Pyridoxine (MELATONIN 5 MG TABLET) 1 Each Tablet, 2 EACH PO QHS 07/11/18 Bupropion Hcl (WELLBUTRIN SR) 150 Mg Tablet.er, 150 MG PO QDAY, TAB 07/11/18 Melatonin/Pyridoxine Hcl (B6) (MELATONIN 10 MG TABLET) 1 Each Tab.mphase, 1 EACH PO QHS 07/11/18 Hydroxyzine Pamoate (VISTARIL) 25 Mg Capsule, 25 MG PO Q8H PRN for ANXIETY/INSOMNIA, CAPSULE 07/11/18 Budesonide/Formoterol Fumarate (SYMBICORT 160-4.5 MCG INHALER) 10.2 Gm Inh, 2 PUFF INH BID, INH 07/09/18 Pantoprazole Sodium (PROTONIX) 40 Mg Granpkt.dr, 40 MG PO QDAY, PACK 06/29/18 Fluticasone/Vilanterol (Breo Ellipta 200-25 Mcg INH) 1 Each Blst.w.dev, 1 PUFF INH QDAY 05/28/18 Oxygen (OXYGEN) Inha, 2 L INH QDAY, L 01/09/18 Cholecalciferol (Vitamin D3) (VITAMIN D3) 1,000 Unit Tablet, 1000 UNIT PO QDAY, TAB 06/20/17 Albuterol Sulfate 90 Mcg/Act (PROAIR HFA 90 MCG/ACT) 8.5 Gm Hfa.aer.ad, 2 PUFF IH Q4-6H PRN for DYSPNEA, INHALER 01/27/17 Multivitamin (MULTIVITAMINS) 1 Each Capsule, 1 EACH PO DAILY, CAPSULE 12/08/16 Discontinued Reported Medications Sertraline Hcl (SERTRALINE HCL) 25 Mg Tablet, 1 TAB PO QDAY, TAB 08/06/18 Escitalopram Oxalate (ESCITALOPRAM OXALATE) 20 Mg Tablet, 20 MG PO QDAY 11/11/17 Past Medical/Surgical History Patient has a past medical history of 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 Patient has a surgical history of breast cancer, tonsillectomy, left shoulder surgery, left hand surgery, cholecystectomy. Reviewed Nurses Notes: Yes Hx Smoking: Yes Smoking Status: Current: Every Day Smoker Exposure to Second Hand Smoke?: Yes Hx Substance Use Disorder: No Hx Alcohol Use: Yes Constitutional Vital Sign - Last 24 Hours 08/15/18 08/15/18 08/15/18 08/15/18 17:28 17:33 17:45 17:48 Temp 97.9 Pulse 98 84 76 Resp 18 B/P (MAP) 132/94 131/83 (99) Pulse Ox 90 94 94 O2 Delivery Room Air 08/15/18 08/15/18 08/15/18 08/15/18 18:00 18:03 18:15 18:18 Pulse 73 70 B/P (MAP) 125/98 (107) 127/77 (94) Pulse Ox 94 94 08/15/18 08/15/18 08/15/18 08/15/18 18:30 18:33 18:45 18:50 Pulse 68 75 B/P (MAP) 122/71 (88) 130/79 (96) Pulse Ox 95 95 08/15/18 08/15/18 08/15/18 08/15/18 19:15 19:20 19:30 19:35 Pulse 75 77 B/P (MAP) 115/54 (74) 109/52 (71) Pulse Ox 95 95 08/15/18 08/15/18 08/15/18 08/15/18 19:40 19:45 19:55 20:00 Pulse 78 75 B/P (MAP) 119/56 (77) 147/73 (97) Pulse Ox 94 95 08/15/18 08/15/18 20:10 20:15 Pulse 80 B/P (MAP) 110/70 (83) Pulse Ox 95 Physical Exam General Appearance: The patient is alert, has no immediate need for airway protection and no current signs of toxicity. Respiratory: Chest is non tender, lungs are wheezy throughout to auscultation. Cardiac: regular rate and rhythm Gastrointestinal: Abdomen is soft and tender in the right upper quadrant, no masses, bowel sounds normal. Musculoskeletal: Neck: Neck is supple and non tender. Extremities have full range of motion and are non tender. Skin: No rashes or lesions. DIFFERENTIAL DIAGNOSIS: After history and physical exam differential diagnosis was considered for abdominal pain including but not limited to appendicitis, cholecystitis, gastritis and urinary tract infection. Medical Decision Making Data Points Result Diagram: 08/15/18175708/15/181757 Laboratory Hematology Test 08/15/18 17:27 08/15/18 17:58 Urine Color Yellow Urine Clarity Clear Urine pH 6.0 pH (4.8-9.5) Urine Specific [place] 1.014 Urine Protein Negative mg/dL (NEGATIVE) Urine Glucose (UA) Negative mg/dL (NEGATIVE) Urine Ketones Negative mg/dL (NEGATIVE) Urine Blood Negative (NEGATIVE) Urine Nitrite Negative (NEGATIVE) Urine Bilirubin Negative (NEGATIVE) Urine Urobilinogen Negative mg/dL (0.2-1.9) Urine Leukocyte Esterase Negative (NEGATIVE) Urine RBC 1 /HPF (0-2/HPF) Urine WBC 1 /HPF (0-5/HPF) Urine Squamous Epithelial Cells Many /LPF (</=FEW) Urine Bacteria Negative /HPF (NONE-FEW) Urine Mucus None /HPF (NONE-FEW) Red Blood Count 4.38 M/uL (4.17-5.56) Mean Corpuscular Volume 89.4 fL (80.0-96.0) Mean Corpuscular Hemoglobin 30.3 pg (26.0-33.0) Mean Corpuscular Hemoglobin Concent 33.9 g/dL (32.0-36.0) Red Cell Distribution Width 13.4 % (11.5-14.5) Mean Platelet Volume 8.8 fL (7.2-11.1) Neutrophils (%) (Auto) 65.3 % (39.4-72.5) Lymphocytes (%) (Auto) 23.0 % (17.6-49.6) Monocytes (%) (Auto) 9.6 % (4.1-12.4) Eosinophils (%) (Auto) 1.6 % (0.4-6.7) Basophils (%) (Auto) 0.5 % (0.3-1.4) Nucleated RBC Relative Count (auto) 0.0 /100WBC Neutrophils # (Auto) 4.3 K/uL (2.0-7.4) Lymphocytes # (Auto) 1.5 K/uL (1.3-3.6) Monocytes # (Auto) 0.6 K/uL (0.3-1.0) Eosinophils # (Auto) 0.1 K/uL (0.0-0.5) Basophils # (Auto) 0.0 K/uL (0.0-0.1) Nucleated RBC Absolute Count (auto) 0.00 K/uL Sodium Level 137 mmol/L (137-145) Potassium Level 3.9 mmol/L (3.5-5.0) Chloride Level 97 mmol/L (98-107) Carbon Dioxide Level 37 mmol/L (22-31) Blood Urea Nitrogen 15 mg/dl (7-18) Creatinine 1.20 mg/dl (0.52-1.04) Glomerular Filtration Rate Calc 46.6 Random Glucose 103 mg/dl (75-110) Calcium Level 9.6 mg/dl (8.4-10.2) Total Bilirubin 0.1 mg/dl (0.2-1.3) Aspartate Amino Transf (AST/SGOT) 16 U/L (0-35) Alanine Aminotransferase (ALT/SGPT) 21 U/L (0-56) Alkaline Phosphatase 93 U/L (0-126) C-Reactive Protein 0.7 mg/dl (<1.0) Total Protein 6.4 g/dl (6.3-8.2) Albumin 3.6 g/dl (3.5-5.0) Amylase Level 39 U/L (0-110) Lipase 100 U/L (23-300) Chemistry Test 08/15/18 17:27 08/15/18 17:58 Urine Color Yellow Urine Clarity Clear Urine pH 6.0 pH (4.8-9.5) Urine Specific [place] 1.014 Urine Protein Negative mg/dL (NEGATIVE) Urine Glucose (UA) Negative mg/dL (NEGATIVE) Urine Ketones Negative mg/dL (NEGATIVE) Urine Blood Negative (NEGATIVE) Urine Nitrite Negative (NEGATIVE) Urine Bilirubin Negative (NEGATIVE) Urine Urobilinogen Negative mg/dL (0.2-1.9) Urine Leukocyte Esterase Negative (NEGATIVE) Urine RBC 1 /HPF (0-2/HPF) Urine WBC 1 /HPF (0-5/HPF) Urine Squamous Epithelial Cells Many /LPF (</=FEW) Urine Bacteria Negative /HPF (NONE-FEW) Urine Mucus None /HPF (NONE-FEW) White Blood Count 6.6 k/uL (4.5-11.0) Red Blood Count 4.38 M/uL (4.17-5.56) Hemoglobin 13.3 g/dL (12.0-16.0) Hematocrit 39.2 % (34.0-47.0) Mean Corpuscular Volume 89.4 fL (80.0-96.0) Mean Corpuscular Hemoglobin 30.3 pg (26.0-33.0) Mean Corpuscular Hemoglobin Concent 33.9 g/dL (32.0-36.0) Red Cell Distribution Width 13.4 % (11.5-14.5) Platelet Count 242 K/uL (150-450) Mean Platelet Volume 8.8 fL (7.2-11.1) Neutrophils (%) (Auto) 65.3 % (39.4-72.5) Lymphocytes (%) (Auto) 23.0 % (17.6-49.6) Monocytes (%) (Auto) 9.6 % (4.1-12.4) Eosinophils (%) (Auto) 1.6 % (0.4-6.7) Basophils (%) (Auto) 0.5 % (0.3-1.4) Nucleated RBC Relative Count (auto) 0.0 /100WBC Neutrophils # (Auto) 4.3 K/uL (2.0-7.4) Lymphocytes # (Auto) 1.5 K/uL (1.3-3.6) Monocytes # (Auto) 0.6 K/uL (0.3-1.0) Eosinophils # (Auto) 0.1 K/uL (0.0-0.5) Basophils # (Auto) 0.0 K/uL (0.0-0.1) Nucleated RBC Absolute Count (auto) 0.00 K/uL Glomerular Filtration Rate Calc 46.6 Calcium Level 9.6 mg/dl (8.4-10.2) Total Bilirubin 0.1 mg/dl (0.2-1.3) Aspartate Amino Transf (AST/SGOT) 16 U/L (0-35) Alanine Aminotransferase (ALT/SGPT) 21 U/L (0-56) Alkaline Phosphatase 93 U/L (0-126) C-Reactive Protein 0.7 mg/dl (<1.0) Total Protein 6.4 g/dl (6.3-8.2) Albumin 3.6 g/dl (3.5-5.0) Amylase Level 39 U/L (0-110) Lipase 100 U/L (23-300) Urinalysis Test 08/15/18 17:27 Urine Color Yellow Urine Clarity Clear Urine pH 6.0 pH (4.8-9.5) Urine Specific [place] 1.014 Urine Protein Negative mg/dL (NEGATIVE) Urine Glucose (UA) Negative mg/dL (NEGATIVE) Urine Ketones Negative mg/dL (NEGATIVE) Urine Blood Negative (NEGATIVE) Urine Nitrite Negative (NEGATIVE) Urine Bilirubin Negative (NEGATIVE) Urine Urobilinogen Negative mg/dL (0.2-1.9) Urine Leukocyte Esterase Negative (NEGATIVE) Urine RBC 1 /HPF (0-2/HPF) Urine WBC 1 /HPF (0-5/HPF) Urine Squamous Epithelial Cells Many /LPF (</=FEW) Urine Bacteria Negative /HPF (NONE-FEW) Urine Mucus None /HPF (NONE-FEW) EKG/Imaging Imaging Examination: CT chest, abdomen, and pelvis with contrast Comparison: CT 05/24/2018 and earlier. History: RUQ abdominal pain, wheezing Procedure: Multiplanar contrast-enhanced imaging of the chest, abdomen, and pelvis with 100 mL intravenous Isovue 370. One of the following dose optimization techniques was utilized in the performance of this exam: Automated exposure control; adjustment of the mA and/or kV according to the patient's size; or use of an iterative reconstruction technique. Specific details can be referenced in the facility's radiology CT exam operational policy. Findings: CT chest: Mediastinum: Cardiac chamber size is normal. Aortic valve calcifications. No thoracic aortic aneurysm. Mildly dilated 3.2 cm main pulmonary artery is unchanged and suggestive of elevated pulmonary artery pressure. No pericardial effusion. Lymph nodes: Negative. Lungs and pleura: No consolidation or nodule. Left lower lobe minimal volume loss. No pneumothorax, edema, or effusion. Airways: Negative. Diaphragm: Intact. CT abdomen and pelvis: Liver: Negative Gallbladder and biliary system: Cholecystectomy. No bile duct dilation. Spleen: Negative Pancreas: Negative Adrenal glands: Negative Kidneys and urinary bladder: Right kidney small cysts are unchanged. No mass or hydronephrosis. Urinary bladder is unremarkable. Vessels: Not atherosclerosis. Otherwise negative. Bowel and mesentery: Stomach, small bowel, and appendix are unremarkable. Very few distal colonic diverticula. No bowel or mesenteric inflammation. Pelvic organs: Enlarged heterogeneous uterus. No adnexal mass. Free air/free fluid: None Lymph nodes: Negative Musculoskeletal: Small fat-containing right inguinal hernia. Rijh-zy-wytipdil degenerative change throughout the thoracolumbar spine. A posterior disc and osteophyte complexes at T11-T12 and T12-L1 results in at least mild canal narrowing. No acute findings. IMPRESSION: 1. No findings of acute disease in the chest, abdomen, or pelvis. 2. Heterogeneously enlarged uterus is suggestive of uterine fibroids. Correlation with any history of abnormal bleeding is recommended with referral to gynecology as clinically indicated. 3. Additional chronic/incidental findings as detailed above. Report Dictated By: Venancio House MD at 08/15/2018 7:48 PM Report E-Signed By: Venancio House MD at 08/15/2018 8:03 PM ED Course/Re-evaluation ED Course Patient was admitted to an exam room, history and physical were obtained. Differential diagnosis was considered. On examination lungs are wheezy throughout, heart is regular, abdomen is soft and tender in the right upper quadrant. Patient has a history of a cholecystectomy and so an IV was started, a CBC, CMP, urinalysis, CT scan of the abdomen and pelvis was done. With patient having such a history of chronic lung problems. We did opt to do a CT scan of the chest in addition to the abdomen and pelvis. The imaging results were negative for any acute findings. Lab results were unremarkable. I discussed the findings with the patient. We will go ahead and discharge patient home at this time. We'll give her a limited supply of tramadol to help with the pain. She is to follow-up with her primary care provider next week. As patient is being discharged she did ask me if her antidepressant, sertraline, could be causing the abdominal pain. I did review that on the left seek, and found that less than 5% time there is abdominal pain associated with this. I discussed this with the patient. It is quite possible that this could be contributing to her symptoms. I recommended that we continue to follow this and follow-up with her psychiatrist. It is my hope that if this is caused by the sertraline that he will improve as her body adjusts to it. Patient verbalized understanding and agreement with romy gifford. Decision to Disposition Date: August 15, 2018 Decision to Disposition Time: 20:12 Depart Departure Latest Vital Signs Vital Signs Date Time Temp Pulse Resp B/P (MAP) Pulse Ox O2 Delivery O2 Flow Rate FiO2 08/15/18 20:15 110/70 (83) 08/15/18 20:10 80 95 08/15/18 17:28 97.9 18 Room Air Core Temperature (Celsius): 37.23 Impression: Primary Impression: Right upper quadrant abdominal pain Condition: Improved Disposition: HOME OR SELF-CARE Referrals: SKINNY TREVINO MD (PCP) New Scripts Tramadol Hcl (TRAMADOL HCL) 50 Mg Tablet 50 MG PO Q4-6H PRN for PAIN, #8 TAB Prov: NINA GORDON 08/15/18 Patient Instructions: Abdominal Pain (ED) Additional Instructions: Get plenty of rest. Increase fluid intake. Return to the ER if condition worsens. Follow up with Dr. Trevino in the next 2-3 days. Limit activity by pain. This is something that you may need to follow up with Dr. last or Dr. Pelletier for as there is nothing that we are seeing during your work up here. NINA GORDON August 15, 2018 17:45
[2018-08-15] MEDS ORDERED: IOPAMIDOL 76% 150 ML INFUS BTL 150 ML ONE (18:00)
[2018-08-15 18:06] LABS: PLATELET COUNT, AUTOMATED 242 K/uL (150-450)
--- NOTE | 2018-08-15 20:06 | RADIOLOGY IMAGING REPORT ---
FACILITY: [facility] [place] PATIENT NAME: Natividad Loaiza : 1965 MR: [id number] V: [id number] EXAM DATE: ORDERING PHYSICIAN: NINA GORDON TECHNOLOGIST: Location: [facility] Patient: Natividad Loaiza : 1965 Visit/Account:[id number] Date of Sevice: 08/15/2018 Examination: CT chest, abdomen, and pelvis with contrast Comparison: CT 05/24/2018 and earlier. History: RUQ abdominal pain, wheezing Procedure: Multiplanar contrast-enhanced imaging of the chest, abdomen, and pelvis with 100 mL intrav enous Isovue 370. One of the following dose optimization techniques was utilized in the performance o f this exam: Automated exposure control; adjustment of the mA and/or kV according to the patient's si ze; or use of an iterative reconstruction technique. Specific details can be referenced in the [facility]'s radiology CT exam operational policy. Findings: CT chest: Mediastinum: Cardiac chamber size is normal. Aortic valve calcifications. No thoracic aortic aneury sm. Mildly dilated 3.2 cm main pulmonary artery is unchanged and suggestive of elevated pulmonary ar cecily pressure. No pericardial effusion. Lymph nodes: Negative. Lungs and pleura: No consolidation or nodule. Left lower lobe minimal volume loss. No pneumothorax, edema, or effusion. Airways: Negative. Diaphragm: Intact. CT abdomen and pelvis: Liver: Negative Gallbladder and biliary system: Cholecystectomy. No bile duct dilation. Spleen: Negative Pancreas: Negative Adrenal glands: Negative Kidneys and urinary bladder: Right kidney small cysts are unchanged. No mass or hydronephrosis. Uri nary bladder is unremarkable. Vessels: Not atherosclerosis. Otherwise negative. Bowel and mesentery: Stomach, small bowel, and appendix are unremarkable. Very few distal colonic di verticula. No bowel or mesenteric inflammation. Pelvic organs: Enlarged heterogeneous uterus. No adnexal mass. Free air/free fluid: None Lymph nodes: Negative Musculoskeletal: Small fat-containing right inguinal hernia. Fhic-ue-jsuttftw degenerative change th roughout the thoracolumbar spine. A posterior disc and osteophyte complexes at T11-T12 and T12-L1 re sults in at least mild canal narrowing. No acute findings. IMPRESSION: 1. No findings of acute disease in the chest, abdomen, or pelvis. 2. Heterogeneously enlarged uterus is suggestive of uterine fibroids. Correlation with any history of abnormal bleeding is recommended with referral to gynecology as clinically indicated. 3. Additional chronic/incidental findings as detailed above. Report Dictated By: Venancio House MD at 08/15/2018 7:48 PM Report E-Signed By: Venancio House MD at 08/15/2018 8:03 PM WSN:[id number]
[2018-08-15] MEDS ORDERED: TRAM-420 PO (20:13)
[2018-08-15 20:15] VITALS: BP 110/70
[2018-08-15] MEDS ORDERED: traMADol 50 MG TAB TH 2 TAB/BOTTLE PO ONE (20:15)
[2018-08-18] MEDS ORDERED: BUDE0.5A IH (08:26)
[2018-08-18] MEDS ORDERED: FORM20VI IH (08:26)
== END 2018-08-15 20:30 | disposition home or self-care (01) ==
LOC: ER 17:35
DX: R10.11 Right upper quadrant pain (principal)
CPT/HCPCS: 71260; 74177; 81001; 82150; 83690; 85025; 86140; 96360; 96361; 99284; A9270; J7030; Q9967; 82040; 82247; 82310; 82374; 82435; 82565; 82947; 84075; 84132; 84155; 84295; 84450; 84460; 84520; C9399

== ENCOUNTER 2018-08-20 20:54 | Emergency (ER) | payer MEDICARE, BC ==
[2018-06-30 14:50] VITALS: Wt 124.7 kg
[~2018-08-20 20:54] MED LIST changes: +BUDE0.5A IH; +FORM20VI IH
--- NOTE | 2018-08-20 20:57 | ER Report ---
History and Physical Time Seen By MD: 20:56 HPI/ROS CHIEF COMPLAINT: Suicidal ideation HISTORY OF PRESENT ILLNESS: 53-year-old female with a history depression and previous suicidal ideation. Patient recently had her Zoloft discontinued she to ok her last dose 24 hours ago. Tonight she is reported is feeling jittery and having suicidal ideation. Patient was just seen by her primary care physician Dr Trevino 08/18/18. Patient's afraid she might take something. She has a history of a previous overdose. REVIEW OF SYSTEMS: Respiratory: No cough, no dyspnea. Cardiovascular: No chest pain, no palpitations. Gastrointestinal: No vomiting, no abdominal pain. Musculoskeletal: No back pain. Allergies: Coded Allergies: aripiprazole (Verified Allergy, Intermediate, RASH, 08/10/18) escitalopram (Verified Allergy, Intermediate, RASH, 08/10/18) lithium (Verified Allergy, Intermediate, RASH, 08/10/18) lurasidone (Verified Allergy, Intermediate, 08/10/18) quetiapine (Verified Allergy, Intermediate, DIZZY, 08/10/18) DIzzy varenicline (Verified Allergy, Intermediate, SWELLING, 08/10/18) ciprofloxacin (Verified Allergy, Mild, N/V, 08/10/18) sulfamethoxazole (Verified Allergy, Mild, HIVES, 08/10/18) topiramate (Verified Allergy, Mild, UPSET STOMACH, 08/10/18) Upset stomach trimethoprim (Verified Allergy, Mild, HIVES, 08/10/18) metoprolol (Verified Allergy, Unknown, 08/10/18) dyspnea haloperidol (Verified Adverse Reaction, Severe, DYSTONIC REACTION, 08/10/18) adhesive tape (Verified Adverse Reaction, Mild, RASH, 08/10/18) fluticasone (Verified Adverse Reaction, Mild, THRUSH, 08/10/18) salmeterol (Verified Adverse Reaction, Mild, THRUSH, 08/10/18) Home Meds Active Scripts Tramadol Hcl (TRAMADOL HCL) 50 Mg Tablet, 50 MG PO Q4-6H PRN for PAIN, #8 TAB Prov:NINA GORDON 08/15/18 Ondansetron 4 Mg Odt (ONDANSETRON 4 MG ODT) 4 Mg Tab.rapdis, 4 MG PO Q6H PRN for NAUSEA/VOMITING, #20 TAB 0 Refills Prov:GARY RODRIGUEZ MD 08/06/18 Azithromycin (ZITHROMAX) 250 Mg Tablet, 1 TAB PO DIRECTED, #36 TAB 3 Refills Take three times a week on , Wednesdays and Fridays. Prov:SKINNY TREVINO MD 07/30/18 Pramipexole Di-Hcl (MIRAPEX) 1 Mg Tablet, 1 MG PO DAILY, #90 TAB 3 Refills Prov:SKINNY TREVINO MD 07/30/18 Potassium Chloride (POTASSIUM CHLORIDE) 10 Meq Tab.er.prt, 10 MEQ PO QDAY for edema, #90 TAB 3 Refills Prov:SKINNY TREVINO MD 07/09/18 Famotidine (FAMOTIDINE) 20 Mg Tablet, 20 MG PO QDAY, #90 TAB 3 Refills Prov:SKINNY TREVINO MD 05/27/18 Hydrochlorothiazide (HYDROCHLOROTHIAZIDE) 25 Mg Tablet, 1 TAB PO QDAY, #30 TAB 11 Refills Prov:SKINNY TREVINO MD 05/05/18 Tiotropium [place] (SPIRIVA) 18 Mcg/Cap Inh, 2 PUFF INH DAILY, #1 INH 11 Refills Prov:SKINNY TREVINO MD 05/14/17 Reported Medications Formoterol Fumarate (PERFOROMIST) 20 Mcg/2 Ml Vial.neb, 2 ML IH BID 08/18/18 Budesonide (PULMICORT) 0.5 Mg/2 Ml Ampul.neb, 2 ML IH BID, ML 08/18/18 Sertraline Hcl (ZOLOFT) 50 Mg Tablet, 1 TAB PO QDAY, TAB 08/10/18 Melatonin (MELATONIN) 10 Mg Capsule, 10 MG PO QHS, CAPSULE 07/11/18 Melatonin/Pyridoxine (MELATONIN 5 MG TABLET) 1 Each Tablet, 2 EACH PO QHS 07/11/18 Bupropion Hcl (WELLBUTRIN SR) 150 Mg Tablet.er, 150 MG PO QDAY, TAB 07/11/18 Melatonin/Pyridoxine Hcl (B6) (MELATONIN 10 MG TABLET) 1 Each Tab.mphase, 1 EACH PO QHS 07/11/18 Hydroxyzine Pamoate (VISTARIL) 25 Mg Capsule, 25 MG PO Q8H PRN for ANXIETY/INSOMNIA, CAPSULE 07/11/18 Pantoprazole Sodium (PROTONIX) 40 Mg Granpkt.dr, 40 MG PO QDAY, PACK 06/29/18 Oxygen (OXYGEN) Inha, 2 L INH QDAY, L 01/09/18 Cholecalciferol (Vitamin D3) (VITAMIN D3) 1,000 Unit Tablet, 1000 UNIT PO QDAY, TAB 06/20/17 Albuterol Sulfate 90 Mcg/Act (PROAIR HFA 90 MCG/ACT) 8.5 Gm Hfa.aer.ad, 2 PUFF IH Q4-6H PRN for DYSPNEA, INHALER 01/27/17 Multivitamin (MULTIVITAMINS) 1 Each Capsule, 1 EACH PO DAILY, CAPSULE 12/08/16 Discontinued Reported Medications Budesonide/Formoterol Fumarate (SYMBICORT 160-4.5 MCG INHALER) 10.2 Gm Inh, 2 PUFF INH BID, INH 07/09/18 Fluticasone/Vilanterol (Breo Ellipta 200-25 Mcg INH) 1 Each Blst.w.dev, 1 PUFF INH QDAY 05/28/18 Past Medical/Surgical History Past Medical History Cardiovascular: Reports hx of: hypertension Respiratory: Reports hx of: 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 (Uses supplemental O2, 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, 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) sleep apnea (Uses BIPAP, since 04/2015) other respiratory history (Chronic repiratory failure with hypoxia) Gastrointestinal: Reports hx of: GERD Psychiatric: Reports hx of: depression psych hospitalization suicide attempt(s) (4 attempts, last attempt 01/26/17) other psychiatric history (somatic symptom disorder) Endocrine: Reports hx of: hypothyroidism Past Surgical History HEENT: Reports hx of: tonsillectomy (06/19) Gastrointestinal: Reports hx of: cholecystectomy (12/18/2015) Reviewed Nurses Notes: Yes Old Medical Records Reviewed: Yes Hx Smoking: Yes Smoking Status: Current: Every Day Smoker Exposure to Second Hand Smoke?: Yes Hx Substance Use Disorder: No Hx Alcohol Use: Yes Constitutional Vital Sign - Last 24 Hours 08/20/18 08/20/18 08/20/18 08/20/18 20:59 21:03 21:09 21:24 Temp 98.0 Pulse 115 110 97 Resp 24 B/P (MAP) 174/92 174/92 (119) Pulse Ox 90 93 94 O2 Delivery Nasal Cannula 08/20/18 08/20/18 08/20/18 08/20/18 21:30 21:39 21:44 21:59 Pulse 95 95 92 B/P (MAP) 148/86 (106) Pulse Ox 95 94 95 08/20/18 08/20/18 08/20/18 08/20/18 22:00 22:05 22:26 22:35 Pulse 93 68 74 Resp 16 16 B/P (MAP) 133/85 (101) Pulse Ox 94 Physical Exam Vital signs stable, afebrile, pulse ox normal General Appearance: The patient is alert, has no immediate need for airway protection and no current signs of toxicity. Tearful and upset while explaining her circumstances. She feels very shaky and is concerned that she may harm herself HEENT: Pupils equal and round no injection. TMs normal, oropharynx without redness or exudate Respiratory: Chest is non tender, lungs are clear to auscultation. Cardiac: regular rate and rhythm Gastrointestinal: Abdomen is soft and non tender, no masses, bowel sounds normal. Musculoskeletal: Neck: Neck is supple and non tender. Extremities have full range of motion and are non tender. Skin: No rashes or lesions. DIFFERENTIAL DIAGNOSIS: After history and physical exam differential diagnosis was considered for depression including functional and major depression, situational depression, medication side effect, drugs and alcohol abuse. Medical Decision Making Data Points Result Diagram: 08/20/18211108/20/182111 Laboratory Hematology Test 08/20/18 21:01 08/20/18 21:12 Urine Color Yellow Urine Clarity Clear Urine pH 6.0 pH (4.8-9.5) Urine Specific [place] 1.013 Urine Protein Negative mg/dL (NEGATIVE) Urine Glucose (UA) Negative mg/dL (NEGATIVE) Urine Ketones Negative mg/dL (NEGATIVE) Urine Blood Negative (NEGATIVE) Urine Nitrite Negative (NEGATIVE) Urine Bilirubin Negative (NEGATIVE) Urine Urobilinogen Negative mg/dL (0.2-1.9) Urine Leukocyte Esterase Negative (NEGATIVE) Urine RBC <1 /HPF (0-2/HPF) Urine WBC 1 /HPF (0-5/HPF) Urine Squamous Epithelial Cells Many /LPF (</=FEW) Urine Bacteria Negative /HPF (NONE-FEW) Urine Mucus None /HPF (NONE-FEW) Urine Opiates Screen Negative Urine Barbiturates Screen Negative Ur Tricyclic Antidepressants Screen Negative Urine Phencyclidine Screen Negative Urine Amphetamines Screen Negative Urine Benzodiazepines Screen Negative Urine Cocaine Screen Negative Urine Cannabinoids Screen Negative Red Blood Count 4.68 M/uL (4.17-5.56) Mean Corpuscular Volume 89.0 fL (80.0-96.0) Mean Corpuscular Hemoglobin 31.0 pg (26.0-33.0) Mean Corpuscular Hemoglobin Concent 34.9 g/dL (32.0-36.0) Red Cell Distribution Width 13.3 % (11.5-14.5) Mean Platelet Volume 9.6 fL (7.2-11.1) Neutrophils (%) (Auto) 69.5 % (39.4-72.5) Lymphocytes (%) (Auto) 21.5 % (17.6-49.6) Monocytes (%) (Auto) 7.6 % (4.1-12.4) Eosinophils (%) (Auto) 0.7 % (0.4-6.7) Basophils (%) (Auto) 0.7 % (0.3-1.4) Nucleated RBC Relative Count (auto) 0.1 /100WBC Neutrophils # (Auto) 5.4 K/uL (2.0-7.4) Lymphocytes # (Auto) 1.7 K/uL (1.3-3.6) Monocytes # (Auto) 0.6 K/uL (0.3-1.0) Eosinophils # (Auto) 0.1 K/uL (0.0-0.5) Basophils # (Auto) 0.1 K/uL (0.0-0.1) Nucleated RBC Absolute Count (auto) 0.01 K/uL Sodium Level 138 mmol/L (137-145) Potassium Level 3.6 mmol/L (3.5-5.0) Chloride Level 97 mmol/L (98-107) Carbon Dioxide Level 33 mmol/L (22-31) Blood Urea Nitrogen 22 mg/dl (7-18) Creatinine 1.50 mg/dl (0.52-1.04) Glomerular Filtration Rate Calc 36.1 Random Glucose 124 mg/dl (75-110) Calcium Level 10.0 mg/dl (8.4-10.2) Magnesium Level 1.7 mg/dl (1.7-2.2) Total Bilirubin 0.1 mg/dl (0.2-1.3) Aspartate Amino Transf (AST/SGOT) 21 U/L (0-35) Alanine Aminotransferase (ALT/SGPT) 13 U/L (0-56) Alkaline Phosphatase 115 U/L (0-126) Total Protein 7.2 g/dl (6.3-8.2) Albumin 4.1 g/dl (3.5-5.0) Salicylates Level < 10 mg/L Salicylate Last Dose Date unk Acetaminophen Level < 10 ug/ml Serum Alcohol < 10 mg/dl Chemistry Test 08/20/18 21:01 08/20/18 21:12 Urine Color Yellow Urine Clarity Clear Urine pH 6.0 pH (4.8-9.5) Urine Specific [place] 1.013 Urine Protein Negative mg/dL (NEGATIVE) Urine Glucose (UA) Negative mg/dL (NEGATIVE) Urine Ketones Negative mg/dL (NEGATIVE) Urine Blood Negative (NEGATIVE) Urine Nitrite Negative (NEGATIVE) Urine Bilirubin Negative (NEGATIVE) Urine Urobilinogen Negative mg/dL (0.2-1.9) Urine Leukocyte Esterase Negative (NEGATIVE) Urine RBC <1 /HPF (0-2/HPF) Urine WBC 1 /HPF (0-5/HPF) Urine Squamous Epithelial Cells Many /LPF (</=FEW) Urine Bacteria Negative /HPF (NONE-FEW) Urine Mucus None /HPF (NONE-FEW) Urine Opiates Screen Negative Urine Barbiturates Screen Negative Ur Tricyclic Antidepressants Screen Negative Urine Phencyclidine Screen Negative Urine Amphetamines Screen Negative Urine Benzodiazepines Screen Negative Urine Cocaine Screen Negative Urine Cannabinoids Screen Negative White Blood Count 7.8 k/uL (4.5-11.0) Red Blood Count 4.68 M/uL (4.17-5.56) Hemoglobin 14.5 g/dL (12.0-16.0) Hematocrit 41.7 % (34.0-47.0) Mean Corpuscular Volume 89.0 fL (80.0-96.0) Mean Corpuscular Hemoglobin 31.0 pg (26.0-33.0) Mean Corpuscular Hemoglobin Concent 34.9 g/dL (32.0-36.0) Red Cell Distribution Width 13.3 % (11.5-14.5) Platelet Count 273 K/uL (150-450) Mean Platelet Volume 9.6 fL (7.2-11.1) Neutrophils (%) (Auto) 69.5 % (39.4-72.5) Lymphocytes (%) (Auto) 21.5 % (17.6-49.6) Monocytes (%) (Auto) 7.6 % (4.1-12.4) Eosinophils (%) (Auto) 0.7 % (0.4-6.7) Basophils (%) (Auto) 0.7 % (0.3-1.4) Nucleated RBC Relative Count (auto) 0.1 /100WBC Neutrophils # (Auto) 5.4 K/uL (2.0-7.4) Lymphocytes # (Auto) 1.7 K/uL (1.3-3.6) Monocytes # (Auto) 0.6 K/uL (0.3-1.0) Eosinophils # (Auto) 0.1 K/uL (0.0-0.5) Basophils # (Auto) 0.1 K/uL (0.0-0.1) Nucleated RBC Absolute Count (auto) 0.01 K/uL Glomerular Filtration Rate Calc 36.1 Calcium Level 10.0 mg/dl (8.4-10.2) Magnesium Level 1.7 mg/dl (1.7-2.2) Total Bilirubin 0.1 mg/dl (0.2-1.3) Aspartate Amino Transf (AST/SGOT) 21 U/L (0-35) Alanine Aminotransferase (ALT/SGPT) 13 U/L (0-56) Alkaline Phosphatase 115 U/L (0-126) Total Protein 7.2 g/dl (6.3-8.2) Albumin 4.1 g/dl (3.5-5.0) Salicylates Level < 10 mg/L Salicylate Last Dose Date unk Acetaminophen Level < 10 ug/ml Serum Alcohol < 10 mg/dl Toxicology Test 08/20/18 21:01 08/20/18 21:12 Urine Opiates Screen Negative Urine Barbiturates Screen Negative Ur Tricyclic Antidepressants Screen Negative Urine Phencyclidine Screen Negative Urine Amphetamines Screen Negative Urine Benzodiazepines Screen Negative Urine Cocaine Screen Negative Urine Cannabinoids Screen Negative Salicylates Level < 10 mg/L Salicylate Last Dose Date unk Acetaminophen Level < 10 ug/ml Serum Alcohol < 10 mg/dl Urinalysis Test 08/20/18 21:01 Urine Color Yellow Urine Clarity Clear Urine pH 6.0 pH (4.8-9.5) Urine Specific [place] 1.013 Urine Protein Negative mg/dL (NEGATIVE) Urine Glucose (UA) Negative mg/dL (NEGATIVE) Urine Ketones Negative mg/dL (NEGATIVE) Urine Blood Negative (NEGATIVE) Urine Nitrite Negative (NEGATIVE) Urine Bilirubin Negative (NEGATIVE) Urine Urobilinogen Negative mg/dL (0.2-1.9) Urine Leukocyte Esterase Negative (NEGATIVE) Urine RBC <1 /HPF (0-2/HPF) Urine WBC 1 /HPF (0-5/HPF) Urine Squamous Epithelial Cells Many /LPF (</=FEW) Urine Bacteria Negative /HPF (NONE-FEW) Urine Mucus None /HPF (NONE-FEW) ED Course/Re-evaluation ED Course Patient was admitted to an examination room. H&P was done. The differential diagnoses was considered. Patient requesting voluntary admission to [facility] for suicidal ideation. She has no actual plan, but she did mention that she might take some pills. She is previously overdosed on pills. She feels very shaky for 2 hours tonight. Patient discontinued her Zoloft yesterday under the advice of her primary care physician. 08/20/2018 9:47:42 pm case discussed with Harriett Garza nurse practitioner a behavioral self-service accepts the patient is a voluntary admission for suicidal ideation to [facility] unit. Decision to Disposition Date: August 20, 2018 Decision to Disposition Time: 21:53 Depart Departure Latest Vital Signs Vital Signs Date Time Temp Pulse Resp B/P (MAP) Pulse Ox O2 Delivery O2 Flow Rate FiO2 08/20/18 22:35 74 16 08/20/18 22:05 94 08/20/18 22:00 133/85 (101) 08/20/18 20:59 98.0 Nasal Cannula Core Temperature (Celsius): 37.23 Impression: Primary Impression: Depression with suicidal ideation Additional Impressions: COPD, group D, by GOLD 2017 classification Obstructive sleep apnea Morbid obesity Condition: Improved Disposition: [facility]FER [facility] Referrals: SKINNY TREVINO MD (PCP) Problem Qualifiers DENIA PUGA DO August 20, 2018 20:56
[2018-08-20 21:35] LABS: PLATELET COUNT, AUTOMATED 273 K/uL (150-450)
[2018-08-20 22:00] VITALS: BP 133/85
[2018-08-20] MEDS ORDERED: ALBUTEROL/IPRATROPIUM 3 ML NEB NEB ONE (22:20)
[2018-08-20] MEDS ORDERED: BUDESONIDE 0.5 MG/2 ML NEB NEB ONE (22:20)
== END 2018-08-20 22:41 ==
LOC: ER 21:01
DX: F32.9 Major depressive disorder, single episode, unspecified (principal); R45.851 Suicidal ideations; J44.9 Chronic obstructive pulmonary disease, unspecified; G47.30 Sleep apnea, unspecified; E66.01 Morbid (severe) obesity due to excess calories
CPT/HCPCS: 36415; 80305; 81001; 83735; 84443; 85025; 94640; 99284; G0480; J7620; J7626; 80320; 80329; 82040; 82247; 82310; 82374; 82435; 82565; 82947; 84075; 84132; 84155; 84295; 84450; 84460; 84520

== ENCOUNTER 2018-08-20 21:50 | Inpatient (IN) | payer MEDICARE, BC ==
[2018-06-30 14:50] VITALS: Ht 167.6 cm; Wt 124.3 kg
[~2018-08-20] VITALS: Ht 167.6 cm; Wt 124.3 kg
[2018-08-20] MEDS ORDERED: MAG HYD/AL HYD/SIMETH 30ML UDC PO PRN (23:05)
[2018-08-21] MEDS ORDERED: ALBUTEROL 8 GM INHALER INH PRN (00:15)
[2018-08-21 08:39] VITALS: BP 129/86
[2018-08-21] MEDS: BUDESO/FORMOT 160/4.5 MCG 6 GM INH SCH ×2 (09:42→18:00)
[2018-08-21] MEDS: TIOTROPIUM BROM INH 18 MCG/CAP INH SCH (09:42)
[2018-08-21] MEDS ORDERED: hydrOXYzine PAMOATE 25 MG CAP PO PRN (11:10)
[2018-08-21] MEDS: buPROPion SR 150 MG TABCR PO SCH (11:38)
[2018-08-21] MEDS: HYDROCHLOROTHIAZIDE 25 MG TAB PO SCH (11:38)
[2018-08-21] MEDS: MULTIVITAMINS TAB PO SCH (11:38)
[2018-08-21] MEDS: FAMOTIDINE 20 MG TAB PO SCH (11:38)
[2018-08-21] MEDS: CHOLECALCIFEROL 1000 UNIT TAB PO SCH (11:38)
[2018-08-21] MEDS: PANTOPRAZOLE SOD 40 MG TABEC PO SCH (11:38)
[2018-08-21] MEDS ORDERED: PRAMIPEXOLE DIHYDROCHL 0.25 MG PO SCH (12:00)
[2018-08-21] MEDS: POTASSIUM CHL 10 MEQ TABCR PO SCH (12:24)
--- NOTE | 2018-08-21 16:00 | HISTORY AND PHYSICAL ---
DATE OF ADMISSION: August 20, 2018 DATE OF INITIAL PSYCHIATRIC INTERVIEW: August 21, 2018, approximately 9:30 a.m. ATTENDING PROVIDER SONNY Bray PRESENTING PROBLEM/CHIEF COMPLAINT "I felt supersensitive to touch and noises. I tried everything to distract from it. Basically, it's like I'm going to hurt myself and end up taking too much of something." HISTORY OF PRESENT ILLNESS This patient is a 53-year-old single, female who presented to the Emergency Department with complaints of suicidal ideation. She reported that she recently had her Zoloft discontinued due to gastrointestinal side effects, and she had taken her last dose 24 hours prior to coming in. She was seen by her primary care physician, Dr. Trevino, on August 18, 2018, and her psychiatric provider through [facility] was contacted. It was agreed upon that she should discontinue her sertraline due to GI upset. Patient has a history of multiple drug-related allergies including ABILIFY, LEXAPRO, LITHIUM, LURASIDONE, and QUETIAPINE, as well as HALDOL. Patient reports at the time of initial interview that her anxiety and anger are a 10/10. She was rating her depression a 7 out of a 10. She reports her last thoughts of hurting herself were the night prior at time of admission to the Emergency Room. She reports that she has been obtaining six to seven hours of sleep. She denies any nightmares. She has some paranoia. Denies auditory or visual hallucinations. She has low energy and reporting her appetite is sufficient. At the time of initial interview on the morning of August 31, 2018, she is denying thoughts of self-harm, denying suicidal or homicidal ideation. She reports she has been noncompliant with her BiPAP at home, although continues to wear her oxygen from 2L to 4L. She had plans at time of admission of either overdosing or cutting in an attempt to harm herself. She tried distraction. She has also been listening to music and walking. She reports after discontinuing her sertraline that her abdominal pain is now absent. She reports that she has been seen in the Emergency Room on three different occasions with negative workups. She is currently engaged with psychiatric care through [facility]. She is seeing Cecilia for psychiatric medication management every four weeks and seeing her therapist, named Della, every two weeks. She is engaged with a whole health action management class with a goal of improving her sleep. She denies new stressors. She was last admitted to the Behavioral Health Unit on July 10, 2018, where she had thoughts of wanting to cut herself and requested a voluntary admission. Patient continues to live in [facility] apartments. Reports that this living situation is going well. She has been living in [facility] apartments since May. She reports that she has been put into a paid guardianship status through [place] [employer]. She has a case monitor, Riley Choudhury, who is working on getting her guardianship removed. Patient was agreeable to a voluntary admission for further evaluation and treatment. MENTAL HEALTH HISTORY Patient has multiple previous inpatient psychiatric admissions on Behavioral Health Unit at [facility], the last being in July 2018. The one prior was in April 2018. She also had an inpatient medical admission for COPD exacerbation at [facility] at the end of June 2018. Following a previous admission in July 2017, she did go to [facility] with [facility] for outpatient mental health care and moved into [facility] May 2018. She has been following with a medication management provider via [employer], Rebeca, whom she sees every four weeks, as well as a therapist, Della, whom she is seeing every two weeks. She reports she is attending classes at [facility] two times per week. She has been on multiple previous psychiatric medications including Depakote, ABILIFY, HALDOL, LITHIUM, LATUDA, Seroquel, Topamax. She reports a history of "up to seven" previous suicide attempts by overdose. History of previous intubation, although she denies this, secondary to an overdose or suicide attempt. She reports her last suicide attempt was "sometime last year, possibly in June 2017." She denies recent urge to cut. Last urge to cut was at time of her last admission in July 2018. FAMILY PSYCHIATRIC HISTORY A brother with significant autism spectrum disorder. Both parents suffered from alcohol use disorder, now both . PAST MEDICAL HISTORY 1. COPD. 2. Obesity. 3. Obstructive sleep apnea, noncompliant with her BiPAP. 4. History of migraine headaches. 5. Left hand surgery for abdominal growth removal. 6. Nerve injury sequelae secondary to left hand injury. 7. 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 8. Patient has reported multiple medical complaints over the last few years consistent with somatic symptom disorder, requiring frequent hospitalizations. SOCIAL HISTORY Patient was born in [place], [place], and raised there. Her parents were at the time of her . They remained , now both . She has never , has no children. No significant other. She has one sole biological brother, one half brother, and a full biological sister who lives in [place], [place]. She has one sibling, her brother, living in town. She reports she has contact with her two brothers. 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 She was put into a paid guardianship status and has a case monitor, Riley Choudhury, working on getting [place] guardianship removed. She is currently living in [facility] since May 2018. She is able to have her dog there. LEGAL HISTORY None. SUBSTANCE ABUSE HISTORY Patient continues to use nicotine, three or four cigarettes per day. She smoked marijuana in the past, none recent. She reports infrequent use of alcohol. Denies use of other illicit substances. PHYSICAL EXAMINATION Please see emergency room notes for physical exam. VITAL SIGNS: At time of admission, temperature of 98.3, pulse of 91, blood pressure 129/86, pulse oximetry 95% on 2L of oxygen. LABORATORY DATA CBC within normal limits. Chemistry panel with low chloride of 97, carbon dioxide elevated, 33, BUN elevated, 22, creatinine elevated, 1.50, random glucose 124, total bilirubin 0.1. Thyroid stimulating hormone is pending. Urine within normal limits. Urine screen within normal limits with many squamous epithelial cells. Urine toxicology includes salicylates, acetaminophen, and serum alcohol levels less than 10. Urine screen negative for opiates, barbiturates, tricyclics, phencyclidine, amphetamines, benzodiazepines, cocaine, and cannabinoids. MENTAL STATUS EXAMINATION GENERAL APPEARANCE, BEHAVIOR, AND ATTITUDE: Patient is a calm, cooperative, 53-year-old female interacting well during initial interview. No periods of tearfulness. She is smiling, interacting well. No bizarre mannerisms or tics. No psychomotor agitation or retardation. SPEECH: Regular rate, rhythm, volume, tone. MOOD: Mostly euthymic. AFFECT: Minimal constricted, mood congruent. THOUGHT PROCESSES: Logical, goal directed. No loose associations or flight of ideas. THOUGHT CONTENT: Free of auditory or visual hallucinations, ideas of reference, thought broadcasting, delusions, obsessions, compulsions. Patient denies suicidal or homicidal ideation. Denies thoughts of self-harm. SENSORIUM: Clear. COGNITION: Alert. Oriented to person, place, time, and situation. MEMORY: Immediate, recent, and remote intact. INTELLIGENCE: Average based on interview. INSIGHT AND JUDGMENT: Considered intact. She was agreeable to a voluntary admission for thoughts of self-harm. ASSESSMENT This is a 53-year-old single female who is well known to the unit, suffering from somatic symptom disorder with multiple previous inpatient psychiatric hospitalizations. She is currently being seen through [facility] for outpatient care with an individual therapist and a medication provider, currently living in [facility] apartments. She reports that she had her sertraline discontinued due to gastrointestinal upset within the last 24 hours. She reports that the gastrointestinal symptoms subsided when the sertraline was discontinued. She remains on her bupropion 150 mg p.o. q.a.m. Reports with increased dose, she had side effects. She continues with her melatonin 10 mg p.o. q.p.m. She has been recently noncompliant with her BiPAP due to difficulty with the strap irritating her neck. We will seek different options for alleviation of this irritation. At the time of initial interview, she is denying suicidal or homicidal ideation. DIAGNOSES PER DIAGNOSTIC AND STATISTICAL MANUAL OF MENTAL DISORDERS, FIFTH EDITION 1. Persistent depressive disorder. 2. Somatic symptom disorder. PLAN 1. Will admit to the unit. 2. Necessary precautions will be implemented. 3. Individual and group therapy to be initiated. 4. Medications to be administered and titrated accordingly. 5. Will continue her bupropion 150 mg p.o. q.a.m. as well as her melatonin 10 mg p.o. q.p.m. She will continue on all of her outpatient medications as prescribed by Dr. Trevino. 6. We will continue to monitor for further symptoms of self-harm and maintain suicide precautions. 7. Ongoing collaboration of care with [facility], her outpatient mental health care provider. 8. Estimated length of stay three to five days. [facility]
[2018-08-21 17:20] VITALS: BP 139/85
[2018-08-21 18:03] VITALS: BP 132/69
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
--- NOTE | 2018-08-21 19:01 | EKG ---
FACILITY: [facility] [place] PATIENT NAME: FLORENCIO CRUZ : [id number] MR: [id number] V: [id number] EXAM DATE: ORDERING PHYSICIAN: MIMI CORNELIUS TECHNOLOGIST: MEDINA Test Reason : aloc Blood Pressure : / mmHG Vent. Rate : 081 BPM Atrial Rate : 081 BPM P-R Int : 152 ms QRS Dur : 082 ms QT Int : 392 ms P-R-T Axes : 064 055 069 degrees QTc Int : 455 ms Normal sinus rhythm Nonspecific T wave abnormality Abnormal ECG When compared with ECG of 14-JUL-2018 16:31, No significant change was found Confirmed by Lele Cox ([id number]) on 08/21/2018 9:49:50 PM Referred By: Confirmed By:Lele Myers
--- NOTE | 2018-08-21 19:11 | Hospitalist Consultation ---
History of Present Illness Requesting Physician Harriett Garza Reason for Consult evaluation of unresponsiveness Chief Complaint unresponsive History of Present Illness 53F admitted for SI yesterday, no acute issues until after dinner. Was cooperative with vital signs for nursing staff lay down in bed after and has not responded to requests to open eyes or move since that time. Nursing evaluated and felt she is somatizing, as she has in the past and is diagnosed with somatization disorder. Medical service was consulted to do an evaluation as [facility] provider is not in house and wanted another evaluation for possible medical causes. History Unable To Obtain Past Medical: Unable to Obtain/Update Problems: (1) Persistent depressive disorder Status: Chronic (2) Adjustment disorder with depressed mood Status: Acute (3) Somatic symptom disorder Status: Acute (4) COPD, group D, by GOLD 2017 classification Status: Chronic (5) GERD (gastroesophageal reflux disease) Status: Chronic (6) Hypothyroidism Status: Chronic (7) Morbid obesity Status: Chronic Home Meds Active Scripts Tramadol Hcl (TRAMADOL HCL) 50 Mg Tablet, 50 MG PO Q4-6H PRN for PAIN, #8 TAB Prov:NINA GORDON 08/15/18 Ondansetron 4 Mg Odt (ONDANSETRON 4 MG ODT) 4 Mg Tab.rapdis, 4 MG PO Q6H PRN for NAUSEA/VOMITING, #20 TAB 0 Refills Prov:GARY RODRIGUEZ MD 08/06/18 Azithromycin (ZITHROMAX) 250 Mg Tablet, 1 TAB PO DIRECTED, #36 TAB 3 Refills Take three times a week on , Wednesdays and Fridays. Prov:SKINNY EMMANUEL MD 07/30/18 Pramipexole Di-Hcl (MIRAPEX) 1 Mg Tablet, 1 MG PO DAILY, #90 TAB 3 Refills Prov:SKINNY EMMANUEL MD 07/30/18 Potassium Chloride (POTASSIUM CHLORIDE) 10 Meq Tab.er.prt, 10 MEQ PO QDAY for edema, #90 TAB 3 Refills Prov:SKINNY EMMANUEL MD 07/09/18 Famotidine (FAMOTIDINE) 20 Mg Tablet, 20 MG PO QDAY, #90 TAB 3 Refills Prov:SKINNY EMMANUEL MD 05/27/18 Hydrochlorothiazide (HYDROCHLOROTHIAZIDE) 25 Mg Tablet, 1 TAB PO QDAY, #30 TAB 11 Refills Prov:SKINNY EMMANUEL MD 05/05/18 Tiotropium [place] (SPIRIVA) 18 Mcg/Cap Inh, 2 PUFF INH DAILY, #1 INH 11 Refills Prov:SKINNY EMMANUEL MD 05/14/17 Reported Medications Formoterol Fumarate (PERFOROMIST) 20 Mcg/2 Ml Vial.neb, 2 ML IH BID 08/18/18 Budesonide (PULMICORT) 0.5 Mg/2 Ml Ampul.neb, 2 ML IH BID, ML 08/18/18 Melatonin (MELATONIN) 10 Mg Capsule, 10 MG PO QHS, CAPSULE 07/11/18 Melatonin/Pyridoxine (MELATONIN 5 MG TABLET) 1 Each Tablet, 2 EACH PO QHS 07/11/18 Bupropion Hcl (WELLBUTRIN SR) 150 Mg Tablet.er, 150 MG PO QDAY, TAB 07/11/18 Melatonin/Pyridoxine Hcl (B6) (MELATONIN 10 MG TABLET) 1 Each Tab.mphase, 1 EACH PO QHS 07/11/18 Hydroxyzine Pamoate (VISTARIL) 25 Mg Capsule, 25 MG PO Q8H PRN for ANXIETY/INSOMNIA, CAPSULE 07/11/18 Pantoprazole Sodium (PROTONIX) 40 Mg Granpkt.dr, 40 MG PO QDAY, PACK 06/29/18 Oxygen (OXYGEN) Inha, 2 L INH QDAY, L 01/09/18 Cholecalciferol (Vitamin D3) (VITAMIN D3) 1,000 Unit Tablet, 1000 UNIT PO QDAY, TAB 06/20/17 Albuterol Sulfate 90 Mcg/Act (PROAIR HFA 90 MCG/ACT) 8.5 Gm Hfa.aer.ad, 2 PUFF IH Q4-6H PRN for DYSPNEA, INHALER 01/27/17 Multivitamin (MULTIVITAMINS) 1 Each Capsule, 1 EACH PO DAILY, CAPSULE 12/08/16 Discontinued Reported Medications Sertraline Hcl (ZOLOFT) 50 Mg Tablet, 1 TAB PO QDAY, TAB 08/10/18 Budesonide/Formoterol Fumarate (SYMBICORT 160-4.5 MCG INHALER) 10.2 Gm Inh, 2 PUFF INH BID, INH 07/09/18 Fluticasone/Vilanterol (Breo Ellipta 200-25 Mcg INH) 1 Each Blst.w.dev, 1 PUFF INH QDAY 05/28/18 Allergies: Coded Allergies: aripiprazole (Verified Allergy, Intermediate, RASH, 08/10/18) escitalopram (Verified Allergy, Intermediate, RASH, 08/10/18) lithium (Verified Allergy, Intermediate, RASH, 08/10/18) lurasidone (Verified Allergy, Intermediate, 08/10/18) quetiapine (Verified Allergy, Intermediate, DIZZY, 08/10/18) DIzzy varenicline (Verified Allergy, Intermediate, SWELLING, 08/10/18) ciprofloxacin (Verified Allergy, Mild, N/V, 08/10/18) sulfamethoxazole (Verified Allergy, Mild, HIVES, 08/10/18) topiramate (Verified Allergy, Mild, UPSET STOMACH, 08/10/18) Upset stomach trimethoprim (Verified Allergy, Mild, HIVES, 08/10/18) metoprolol (Verified Allergy, Unknown, 08/10/18) dyspnea haloperidol (Verified Adverse Reaction, Severe, DYSTONIC REACTION, 08/10/18) adhesive tape (Verified Adverse Reaction, Mild, RASH, 08/10/18) fluticasone (Verified Adverse Reaction, Mild, THRUSH, 08/10/18) salmeterol (Verified Adverse Reaction, Mild, THRUSH, 08/10/18) Patient History: Breast cancer FH: alcohol abuse FATHER, , Age:82 MOTHER, , Age:66 FH: atrial fibrillation FATHER, , Age:82 FH: breast cancer MGM, Onset:80 [place] PGM FH: hypertension FATHER, , Age:82 MOTHER, , Age:66 BROTHER OR SISTER FH: kidney failure FATHER, , Age:82 FH: leukemia BROTHER OR SISTER Hx Smoking: Yes Smoking Status: Light Tobacco Smoker Exposure to Second Hand Smoke?: No Caffeine Intake: Coffee Caffeine/Cups Per Day: 1-2 Hx Alcohol Use: No Alcohol Use: Never Hx Substance Use Disorder: No Social Drug Use: Never Social Drugs: Prescription Drugs Amount Of Social Drug/s Used: 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 History of IV Drug Use: No Review of Systems Other unable to obtain due to patient unresponsive Exam Vital Signs Vital Signs Date Time Temp Pulse Resp B/P (MAP) Pulse Ox O2 Delivery O2 Flow Rate FiO2 08/21/18 18:03 84 132/69 (90) 98 Nasal Cannula 2.0 08/21/18 17:20 98.3 General Appearance: No Acute Distress, Afebrile Neuro: Other (rolls eyes downward upon attempt to examine pupil, minimal response to pain with only minor facial changes, assists in lifting arm and slows fall of arm when dropped over her face) ENT: Normal Cardiovascular: Normal Rhythm & Peripheral Pulses Respiratory: No Respiratory Distress (on O2 via NC) GI: Abd Soft and Non-Tender Extremities: Soft and Non Tender, Warm, Pulses, Perfused Medical Decision Making EKG / Imaging EKG Interpretation NSR Assessment and Plan Problems: (1) Somatic symptom disorder Status: Acute Assessment & Plan: Unresponsive, minimal pain response; however she does move eyes to avoid pupil examination and redirects and slows arm when dropped over her face. EKG appears unchanged. Will get CMP, phos, VBG to further evaluate. Given history, PE, onset of tonight's episode recommend continued monitoring on BHS. If any changes in status please contact hospitalist service and we would be happy to reevaluate. Venous Thromboembolism Antithrombotics Is Pt On Any Antithrombotics?: No STEPHANIE DAVID DO August 21, 2018 19:11
[2018-08-21] MEDS: MELATONIN 3 MG TAB PO SCH (21:09)
[2018-08-21] MEDS: PRAMIPEXOLE DIHYDROCHL 0.25 MG PO SCH (21:09)
[2018-08-22 05:24] VITALS: BP 140/75
[2018-08-22] MEDS: BUDESO/FORMOT 160/4.5 MCG 6 GM INH SCH ×2 (05:38→16:06)
[2018-08-22] MEDS: TIOTROPIUM BROM INH 18 MCG/CAP INH SCH (05:38)
[2018-08-22] MEDS: CHOLECALCIFEROL 1000 UNIT TAB PO SCH (09:17)
[2018-08-22] MEDS: POTASSIUM CHL 10 MEQ TABCR PO SCH (09:17)
[2018-08-22] MEDS: HYDROCHLOROTHIAZIDE 25 MG TAB PO SCH (09:17)
[2018-08-22] MEDS: PANTOPRAZOLE SOD 40 MG TABEC PO SCH (09:17)
[2018-08-22] MEDS: buPROPion SR 150 MG TABCR PO SCH (09:17)
[2018-08-22] MEDS: MULTIVITAMINS TAB PO SCH (09:17)
[2018-08-22] MEDS: FAMOTIDINE 20 MG TAB PO SCH (09:21)
--- NOTE | 2018-08-22 09:33 | BHS Progress Note ---
[facility] - Subjective Progress Notes Subjective "So.so." "I'm just upset about that catatonic state I went in because it hadn't happened in a a long time." She denies known triggers for event which occurred last evening in which she was unresponsive. She reports hearing and seeing what was happening at the time however she was unable to respond. She reports feeling "fine" this morning. She rates her depression level a 7, anxiety level a 9, and denies suicidal thoughts. Suicidal Ideation: None Homicidal Ideation: None [facility] - Objective Physical Exam Vital Signs Vital Signs 08/22/18 05:24 Temp 97.3 Pulse 88 B/P (MAP) 140/75 (96) Pulse Ox 93 O2 Delivery Nasal Cannula O2 Flow Rate 2.0 Muscle Strength and Tone: WNL Gait and Station: Steady [facility] Medications Reviewed: Side Effects, Benefits of Medication, Risks Allergies Reviewed: Yes Mental Status Exam General Appearance: Casual, Well Groomed, Good Eye Contact, Cooperative, Polite, Good Interaction, Tearful, Psychomotor Agitation, Psychomotor Retarda tion, Bizarre Mannerisms, Tics Speech: Clear, Spontaneous, Normal Rate, Normal Rhythm, Normal Volume, Normal Tone; No Delayed, No Slurred, No Garbled, No Rambling, No Inappropriate Mood: Dysthmic/Depressed Affect: Calm Thought Process: Organized, Logical, Goal Directed; No Loose Associations, No Flight of Ideas Thought Content: No Suicidal Ideation, No Homicidal Ideation, No Delusions, No Auditory Halllucinations, No Visual Hallucinations, No Thought Broadcasting, No Ideas of Reference, No Obsessions, No Compulsions Sensorium: Clear Cognition: Alert & Oriented-Person, Alert & Oriented-Place, Alert & Oriented- Time, Lfwyc-Efbeymck-Dprlqoglf Memory: Immediate, Recent, Remote, Other (grossly intact) Intelligence: Average Insight Judgment: Fair Result Diagram: 08/21/181941 [facility] Assessment and Plan Rzim-bv-Gkmj Encounter Date: August 22, 2018 Ygtv-ek-Tmaq Encounter Time: 08:45 [facility] Plan: Admit to Unit, Necessary Precautions, Individual/Group Therapy, Admin/Titrate Meds, Educate Patient Tobacco Medications: No Bupropion (Wellbutrin), No Varenicline (Chantix); Started, Not Appropriate Condition Multpiple Antipsychotics Used: No Problems: (1) Persistent depressive disorder Status: Chronic Condition Client processed event from last evening in which she was awake however unable to respond to staff. Today she reports feeling alert, oriented, physically WNL. She is noting anxiety and depression without suicidal thoughts or thoughts of self harm. Will continue precautions and discharge planning. No medication changes recommended today. PALMA BORJA NP August 22, 2018 09:33
[2018-08-22 11:04] VITALS: BP 116/63
[2018-08-22] MEDS: ACETAMINOPHEN 325 MG TAB PO PRN (11:54)
[2018-08-22 15:27] VITALS: BP 140/79
[2018-08-22] MEDS: MELATONIN 3 MG TAB PO SCH (21:42)
[2018-08-22] MEDS: PRAMIPEXOLE DIHYDROCHL 0.25 MG PO SCH (21:42)
--- NOTE | 2018-08-22 21:48 | NUR ---
2049 this nurse went in pt. room with her medications. Patient was laying on her left lateral with O2 on and eyes closed . This nurse called her name repeatedly, shook the patient lightly by the shoulder. The patient smiled and fluttered her eyes. This nurse again addressed the Patient asking her to sit up and take her medications. The patient continued to annie into the pillow. This Nurse told the Patient again "Natividad , It's time for your meds." The patient continued the same behavior. This nurse told her her medications would be at the counter if she changed her mind. At approx 2129 this nurse checked on the patient and found her crying in the bathroom. The Patient was invited out to talk which she did and stated that she has "spells" where she is frozen and can not respond. This nurse asked if this had happened before she replied that it had yesterday. This nurse offered her her medications and she said yes she would like them.
[2018-08-23] MEDS: ACETAMINOPHEN 325 MG TAB PO PRN (05:15)
[2018-08-23 05:31] VITALS: BP 138/87
[2018-08-23] MEDS: TIOTROPIUM BROM INH 18 MCG/CAP INH SCH (05:47)
[2018-08-23] MEDS: BUDESO/FORMOT 160/4.5 MCG 6 GM INH SCH (05:48)
[2018-08-23] MEDS: POTASSIUM CHL 10 MEQ TABCR PO SCH (08:27)
[2018-08-23] MEDS: CHOLECALCIFEROL 1000 UNIT TAB PO SCH (08:27)
[2018-08-23] MEDS: FAMOTIDINE 20 MG TAB PO SCH (08:27)
[2018-08-23] MEDS: PANTOPRAZOLE SOD 40 MG TABEC PO SCH (08:28)
[2018-08-23] MEDS: HYDROCHLOROTHIAZIDE 25 MG TAB PO SCH (08:28)
[2018-08-23] MEDS: MULTIVITAMINS TAB PO SCH (08:28)
[2018-08-23] MEDS: buPROPion SR 150 MG TABCR PO SCH (08:28)
[2018-08-23] MEDS ORDERED: AZITHROMYCIN 250 MG TAB PO SCH (09:00)
--- NOTE | 2018-08-23 17:18 | BHS Discharge Summary ---
[facility] Discharge Summary Xsqb-fg-Yxbi Encounter Date: August 23, 2018 Gulg-pb-Pxyl Encounter Time: 11:00 Reason-Hosp/Final Diag (DSM-V): (1) Persistent depressive disorder Status: Chronic Hospital Course & Plan: DATE OF ADMISSION: August 20, 2018 DATE OF INITIAL PSYCHIATRIC INTERVIEW: August 21, 2018, approximately 9:30 a.m. ATTENDING PROVIDER SONNY Bray PRESENTING PROBLEM/CHIEF COMPLAINT "I felt supersensitive to touch and noises. I tried everything to distract from it. Basically, it's like I'm going to hurt myself and end up taking too much of something." HISTORY OF PRESENT ILLNESS This patient is a 53-year-old single, female who presented to the Emergency Department with complaints of suicidal ideation. She reported that she recently had her Zoloft discontinued due to gastrointestinal side effects, and she had taken her last dose 24 hours prior to coming in. She was seen by her primary care physician, Dr. Trevino, on August 18, 2018, and her psychiatric provider through [facility] was contacted. It was agreed upon that she should discontinue her sertraline due to GI upset. Patient has a history of multiple drug-related allergies including ABILIFY, LEXAPRO, LITHIUM, LURASIDONE, and QUETIAPINE, as well as HALDOL. Patient reports at the time of initial interview that her anxiety and anger are a 10/10. She was rating her depression a 7 out of a 10. She reports her last thoughts of hurting herself were the night prior at time of admission to the Emergency Room. She reports that she has been obtaining six to seven hours of sleep. She denies any nightmares. She has some paranoia. Denies auditory or visual hallucinations. She has low energy and reporting her appetite is sufficient. At the time of initial interview on the morning of August 31, 2018, she is denying thoughts of self-harm, denying suicidal or homicidal ideation. She reports she has been noncompliant with her BiPAP at home, although continues to wear her oxygen from 2L to 4L. She had plans at time of admission of either overdosing or cutting in an attempt to harm herself. She tried distraction. She has also been listening to music and walking. She reports after discontinuing her sertraline that her abdominal pain is now absent. She reports that she has been seen in the Emergency Room on three different occasions with negative workups. She is currently engaged with psychiatric care through [facility]. She is seeing Cecilia for psychiatric medication management every four weeks and seeing her therapist, named Della, every two weeks. She is engaged with a whole health action management class with a goal of improving her sleep. She denies new stressors. She was last admitted to the Behavioral Health Unit on July 10, 2018, where she had thoughts of wanting to cut herself and requested a voluntary admission. Patient continues to live in [facility] apartments. Reports that this living situation is going well. She has been living in [facility] apartments since May. She reports that she has been put into a paid guardianship status through [place] [employer]. She has a telehealth case manager, Riley Choudhury, who is working on getting her guardianship removed. Patient was agreeable to a voluntary admission for further evaluation and treatment. HOSPITAL COURSE Pt was admitted to [facility] and maintained on suicide precautions. Her medications were not changed; she remained on the Wellbutrin XL 150 mg. She was cooperative and attended all groups and individual therapies. She had two episodes that she described as "I went into one of my catatonic episodes." She was in her bed, laying there, not responding, fluttered her eyelids, and not answering when nursing staff asked her to take her medications. It lasted for several minutes and nurse then heard her crying in the bathroom. Pt said she could hear e verything but couldn't speak. She told us the next morning that she gets upset when she has these that "nobody believes me, they say I'm faking it." I told her that "catatonic" is not the accurate term, that hers are "spells" that sometimes people can get when stressed or depressed, that they are typically not dangerous in any way, and typically resolve on their own. By day of discharge she was stable, denied SI, was wanting to get home so she could attend her mammogram later in the afternoon, and she will follow up with Velia at [facility] on . (2) Somatic symptom disorder Status: Acute Physical Exam Latest Vital Signs Vital Signs 08/22/18 08/23/18 15:27 05:31 Temp 97.8 Pulse 98 Resp 16 B/P (MAP) 138/87 (104) Pulse Ox 94 O2 Delivery Room Air O2 Flow Rate 2.0 Mental Status Exam General Appearance: Casual, Well Groomed, Good Eye Contact, Cooperative, Polite, Good Interaction Speech: Clear, Spontaneous, Normal Rate, Normal Rhythm, Normal Volume, Normal Tone Mood: Euthymic Affect: Full and Appropriate, Calm Thought Process: Organized, Logical, Goal Directed; No Loose Associations, No Flight of Ideas Thought Content: No Suicidal Ideation, No Homicidal Ideation, No Delusions, No Auditory Halllucinations, No Visual Hallucinations, No Thought Broadcasting, No Ideas of Reference, No Obsessions, No Compulsions Sensorium: Clear Cognition: Alert & Oriented-Person, Alert & Oriented-Place, Alert & Oriented- Time, Qylrp-Iviwyzjo-Kdbyupxvd Memory: Immediate, Recent, Remote, Other (grossly intact) Intelligence: Average Insight Judgment: Fair Departure Result Diagram: 08/21/181941 Item Value Date Time White Blood Count 7.8 k/uL 08/20/182111 Red Blood Count 4.68 M/uL 08/20/182111 Hemoglobin 14.5 g/dL 08/20/182111 Hematocrit 41.7 % 08/20/182111 Mean Corpuscular Volume 89.0 fL 08/20/182111 Mean Corpuscular Hemoglobin 31.0 pg 08/20/182111 Mean Corpuscular Hemoglobin Concent 34.9 g/dL 08/20/182111 Red Cell Distribution Width 13.3 % 08/20/182111 Platelet Count 273 K/uL 08/20/182111 Sodium Level 141 mmol/L 08/21/181941 Potassium Level 3.9 mmol/L 08/21/181941 Chloride Level 97 mmol/L L 08/21/181941 Carbon Dioxide Level 32 mmol/L H 08/21/181941 Blood Urea Nitrogen 21 mg/dl H 08/21/181941 Creatinine 1.30 mg/dl H 08/21/181941 Glomerular Filtration Rate Calc 42.5 08/21/181941 Whole Blood Glucose 115 mg/DL H 08/21/181810 Random Glucose 116 mg/dl H 08/21/181941 Calcium Level 9.7 mg/dl 08/21/181941 Phosphorus Level 4.0 mg/dl 08/21/181941 Total Bilirubin 0.1 mg/dl L 08/21/181941 Aspartate Amino Transf (AST/SGOT) 25 U/L 08/21/181941 Alanine Aminotransferase (ALT/SGPT) 22 U/L 08/21/181941 Alkaline Phosphatase 95 U/L 08/21/181941 Total Protein 6.8 g/dl 08/21/181941 Albumin 3.9 g/dl 08/21/181941 Urine Color Yellow 08/20/182100 Urine Clarity Clear 08/20/182100 Urine pH 6.0 pH 08/20/182100 Urine Specific [place] [employer] 1.013 08/20/182100 Urine Protein Negative mg/dL 08/20/182100 Urine Glucose (UA) Negative mg/dL 08/20/182100 Urine Ketones Negative mg/dL 08/20/182100 Urine Blood Negative 08/20/182100 Urine Nitrite Negative 08/20/182100 Urine Bilirubin Negative 08/20/182100 Urine Urobilinogen Negative mg/dL 08/20/182100 Urine Leukocyte Esterase Negative 08/20/182100 Salicylates Level < 10 mg/L 08/20/182111 Salicylate Last Dose Date unk 08/20/182111 Urine Opiates Screen Negative 08/20/182100 Acetaminophen Level < 10 ug/ml 08/20/182111 Urine Barbiturates Screen Negative 08/20/182100 Ur Tricyclic Antidepressants Screen Negative 08/20/182100 Urine Phencyclidine Screen Negative 08/20/182100 Urine Amphetamines Screen Negative 08/20/182100 Urine Benzodiazepines Screen Negative 08/20/182100 Urine Cocaine Screen Negative 08/20/182100 Urine Cannabinoids Screen Negative 08/20/182100 Serum Alcohol < 10 mg/dl 08/20/182111 Condition: Improved Discharge to: Home Discharge Instructions Home Meds Active Scripts Azithromycin (ZITHROMAX) 250 Mg Tablet, 1 TAB PO DIRECTED, #36 TAB 3 Refills Take three times a week on , Wednesdays and Fridays. Prov:SKINNY TREVINO MD 07/30/18 Pramipexole Di-Hcl (MIRAPEX) 1 Mg Tablet, 1 MG PO DAILY, #90 TAB 3 Refills Prov:SKINNY TREVINO MD 07/30/18 Potassium Chloride (POTASSIUM CHLORIDE) 10 Meq Tab.er.prt, 10 MEQ PO QDAY for edema, #90 TAB 3 Refills Prov:SKINNY TREVINO MD 07/09/18 Famotidine (FAMOTIDINE) 20 Mg Tablet, 20 MG PO QDAY, #90 TAB 3 Refills Prov:SKINNY TREVINO MD 05/27/18 Hydrochlorothiazide (HYDROCHLOROTHIAZIDE) 25 Mg Tablet, 1 TAB PO QDAY, #30 TAB 11 Refills Prov:SKINNY TREVINO MD 05/05/18 Tiotropium [place] (SPIRIVA) 18 Mcg/Cap Inh, 2 PUFF INH DAILY, #1 INH 11 Refills Prov:SKINNY TREVINO MD 05/14/17 Reported Medications Formoterol Fumarate (PERFOROMIST) 20 Mcg/2 Ml Vial.neb, 2 ML IH BID 08/18/18 Budesonide (PULMICORT) 0.5 Mg/2 Ml Ampul.neb, 2 ML IH BID, ML 08/18/18 Melatonin (MELATONIN) 10 Mg Capsule, 10 MG PO QHS, CAPSULE 07/11/18 Melatonin/Pyridoxine (MELATONIN 5 MG TABLET) 1 Each Tablet, 2 EACH PO QHS 07/11/18 Bupropion Hcl (WELLBUTRIN SR) 150 Mg Tablet.er, 150 MG PO QDAY, TAB 07/11/18 Melatonin/Pyridoxine Hcl (B6) (MELATONIN 10 MG TABLET) 1 Each Tab.mphase, 1 EACH PO QHS 07/11/18 Hydroxyzine Pamoate (VISTARIL) 25 Mg Capsule, 25 MG PO Q8H PRN for ANXIETY/INSOMNIA, CAPSULE 07/11/18 Pantoprazole Sodium (PROTONIX) 40 Mg Granpkt.dr, 40 MG PO QDAY, PACK 06/29/18 Oxygen (OXYGEN) Inha, 2 L INH QDAY, L 01/09/18 Cholecalciferol (Vitamin D3) (VITAMIN D3) 1,000 Unit Tablet, 1000 UNIT PO QDAY, TAB 06/20/17 Albuterol Sulfate 90 Mcg/Act (PROAIR HFA 90 MCG/ACT) 8.5 Gm Hfa.aer.ad, 2 PUFF IH Q4-6H PRN for DYSPNEA, INHALER 01/27/17 Multivitamin (MULTIVITAMINS) 1 Each Capsule, 1 EACH PO DAILY, CAPSULE 12/08/16 Discontinued Reported Medications Sertraline Hcl (ZOLOFT) 50 Mg Tablet, 1 TAB PO QDAY, TAB 08/10/18 Budesonide/Formoterol Fumarate (SYMBICORT 160-4.5 MCG INHALER) 10.2 Gm Inh, 2 PUFF INH BID, INH 07/09/18 Fluticasone/Vilanterol (Breo Ellipta 200-25 Mcg INH) 1 Each Blst.w.dev, 1 PUFF INH QDAY 05/28/18 Discontinued Scripts Tramadol Hcl (TRAMADOL HCL) 50 Mg Tablet, 50 MG PO Q4-6H PRN for PAIN, #8 TAB Prov:NINA GORDON SECURITY GUARD SUPERVISOR 08/15/18 Ondansetron 4 Mg Odt (ONDANSETRON 4 MG ODT) 4 Mg Tab.rapdis, 4 MG PO Q6H PRN for NAUSEA/VOMITING, #20 TAB 0 Refills Prov:GARY RODRIGUEZ MD 08/06/18 Multpiple Antipsychotics Used: No Diet: Regular Activity: As Tolerated Special Instructions: Discharge home. Follow-up with outpatient therapy and medication management. Take medications only as prescribed. It is recommended that you continue to stop smoking. Call crisis line or return to Emergency Room for return of suicidal or homicidal thoughts. BAHMAN GRACIA MD August 23, 2018 17:18
== END 2018-08-23 12:17 | disposition home or self-care (01) | DRG 881 ==
LOC: BHS 21:50
PROVIDERS: ADMIT Nurse Practitioner Psychiatric/Mental Health; ATTEND Nurse Practitioner Psychiatric/Mental Health
DX: F34.1 Dysthymic disorder (principal); Z68.41 Body mass index [BMI] 40.0-44.9, adult; F45.0 Somatization disorder; G47.33 Obstructive sleep apnea (adult) (pediatric); F43.21 Adjustment disorder with depressed mood; E66.9 Obesity, unspecified; J44.9 Chronic obstructive pulmonary disease, unspecified; G43.909 Migraine, unspecified, not intractable, without status migrainosus; K21.9 Gastro-esophageal reflux disease without esophagitis; E03.9 Hypothyroidism, unspecified; F17.210 Nicotine dependence, cigarettes, uncomplicated; S64.9 Injury of unspecified nerve at wrist and hand level; Z89.022 Acquired absence of left finger(s); Z88.8 Allergy status to other drugs, medicaments and biological substances; Z88.2 Allergy status to sulfonamides; Z91.19 Patient's noncompliance with other medical treatment and regimen; Z91.5 Personal history of self-harm; Z81.1 Family history of alcohol abuse and dependence
CPT/HCPCS: 36416; 82040; 82247; 82310; 82374; 82435; 82565; 82803; 82947; 82948; 84075; 84100; 84132; 84155; 84295; 84450; 84460; 84520; 93005; 94640; J3535

== ENCOUNTER → 2018-08-23 | Outpatient (CLI) | payer MEDICARE, BC ==
[2018-06-30 14:50] VITALS: BMI 46.9
--- NOTE | 2018-08-24 10:40 | RADIOLOGY IMAGING REPORT ---
FACILITY: [facility] PATIENT NAME: FLORENCIO CRUZ : [id number] MR: [id number] V: [id number] EXAM DATE: ORDERING PHYSICIAN: SKINNY EMMANUEL TECHNOLOGIST: Marlee Rios PROCEDURE: BILATERAL DIGITAL SCREENING MAMMOGRAM WITH CAD ASSISTED INTERPRETATION & 3D TOMOSYNTHESIS REASON FOR STUDY: Screening. FAMILY HISTORY OF BREAST CANCER: Maternal and Paternal Grandmothers. Ovarian Cancer in Maternal Aunt and Cousin. BREAST PROCEDURES/TREATMENTS: Benign Stereotactic Biopsy of the Left Breast. COMPARISON: Prior mammograms 05/26/17, 03/04/16, 08/23/15, 04/26/15. VIEWS OBTAINED: 2D & 3D full field CC & MLO. BREAST DENSITY: There are scattered areas of fibroglandular density throughout the breasts. MAMMOGRAM FINDINGS: The parenchymal pattern has remained stable allowing for difference in mammographic technique & patient positioning. There are scattered round benign appearing calcifications seen throughout both breasts. There is a biopsy clip in the upper outer quadrant of the Left breast in the middle depth. IMPRESSION: BIRADS 2: Benign finding. DIAGNOSTIC CATEGORY 2--BENIGN FINDING. RECOMMENDATIONS: ROUTINE MAMMOGRAM AND CLINICAL EVALUATION. Dictated by: Cris Verma M.D. on 08/23/2018 at 17:48 Transcribed by: FIX on 08/24/2018 at 8:53 Approved by: Crsi Verma M.D. on 08/24/2018 at 10:39 [facility]
== END ==
LOC: MAMO 02:23
PROVIDERS: ATTEND Emergency Medicine
DX: Z12.31 Encounter for screening mammogram for malignant neoplasm of breast (principal); R92.1 Mammographic calcification found on diagnostic imaging of breast
CPT/HCPCS: 77063; 77067

== ENCOUNTER 2018-08-24 20:38 | Emergency (ER) | payer MEDICARE, BC ==
[2018-06-30 14:50] VITALS: Wt 124.3 kg
[~2018-08-24 20:38] MED LIST changes: -CITA-145 PO; +RANI-366 PO; -RANI-54 PO
--- NOTE | 2018-08-24 20:49 | ER Report ---
History and Physical Time Seen By MD: 20:43 HPI/ROS CHIEF COMPLAINT: Difficulty with speech HISTORY OF PRESENT ILLNESS: This is a 53-year-old female. She's been having some difficulty with speech for the last 3-4 hours. Also some generalized weakness. She called a friend come help her and friend called EMS. She says that she is having some trouble forming words, speech is a little slow. She is moving her arms and legs without difficulty. No focal weakness but she is generally weak. She is had this same thing happen in the past and it has been associated with stress and anxiety in the past. She denies any recent illnesses. She was admitt ed to [facility] recently for depression and suicidal ideation. Denies any fevers or chills. She does not have a headache. No vision changes. She does wear oxygen and is currently on her usual oxygen and has no shortness of breath. No chest pains. Allergies: Coded Allergies: aripiprazole (Verified Allergy, Intermediate, RASH, 08/10/18) escitalopram (Verified Allergy, Intermediate, RASH, 08/10/18) lithium (Verified Allergy, Intermediate, RASH, 08/10/18) lurasidone (Verified Allergy, Intermediate, 08/10/18) quetiapine (Verified Allergy, Intermediate, DIZZY, 08/10/18) DIzzy varenicline (Verified Allergy, Intermediate, SWELLING, 08/10/18) ciprofloxacin (Verified Allergy, Mild, N/V, 08/10/18) sulfamethoxazole (Verified Allergy, Mild, HIVES, 08/10/18) topiramate (Verified Allergy, Mild, UPSET STOMACH, 08/10/18) Upset stomach trimethoprim (Verified Allergy, Mild, HIVES, 08/10/18) metoprolol (Verified Allergy, Unknown, 08/10/18) dyspnea haloperidol (Verified Adverse Reaction, Severe, DYSTONIC REACTION, 08/10/18) adhesive tape (Verified Adverse Reaction, Mild, RASH, 08/10/18) fluticasone (Verified Adverse Reaction, Mild, THRUSH, 08/10/18) salmeterol (Verified Adverse Reaction, Mild, THRUSH, 08/10/18) Home Meds Active Scripts Azithromycin (ZITHROMAX) 250 Mg Tablet, 1 TAB PO DIRECTED, #36 TAB 3 Refills Take three times a week on , Wednesdays and Fridays. Prov:SKINNY EMMANUEL MD 07/30/18 Pramipexole Di-Hcl (MIRAPEX) 1 Mg Tablet, 1 MG PO DAILY, #90 TAB 3 Refills Prov:SKINNY EMMANUEL MD 07/30/18 Potassium Chloride (POTASSIUM CHLORIDE) 10 Meq Tab.er.prt, 10 MEQ PO QDAY for edema, #90 TAB 3 Refills Prov:SKINNY EMMANUEL MD 07/09/18 Famotidine (FAMOTIDINE) 20 Mg Tablet, 20 MG PO QDAY, #90 TAB 3 Refills Prov:SKINNY EMMANUEL MD 05/27/18 Hydrochlorothiazide (HYDROCHLOROTHIAZIDE) 25 Mg Tablet, 1 TAB PO QDAY, #30 TAB 11 Refills Prov:SKINNY EMMANUEL MD 05/05/18 Tiotropium [place] (SPIRIVA) 18 Mcg/Cap Inh, 2 PUFF INH DAILY, #1 INH 11 Refills Prov:SKINNY EMMANUEL MD 05/14/17 Reported Medications Formoterol Fumarate (PERFOROMIST) 20 Mcg/2 Ml Vial.neb, 2 ML IH BID 08/18/18 Budesonide (PULMICORT) 0.5 Mg/2 Ml Ampul.neb, 2 ML IH BID, ML 08/18/18 Melatonin (MELATONIN) 10 Mg Capsule, 10 MG PO QHS, CAPSULE 07/11/18 Melatonin/Pyridoxine (MELATONIN 5 MG TABLET) 1 Each Tablet, 2 EACH PO QHS 07/11/18 Bupropion Hcl (WELLBUTRIN SR) 150 Mg Tablet.er, 150 MG PO QDAY, TAB 07/11/18 Melatonin/Pyridoxine Hcl (B6) (MELATONIN 10 MG TABLET) 1 Each Tab.mphase, 1 EACH PO QHS 07/11/18 Hydroxyzine Pamoate (VISTARIL) 25 Mg Capsule, 25 MG PO Q8H PRN for ANXIETY/INSOMNIA, CAPSULE 07/11/18 Pantoprazole Sodium (PROTONIX) 40 Mg Granpkt.dr, 40 MG PO QDAY, PACK 06/29/18 Oxygen (OXYGEN) Inha, 2 L INH QDAY, L 01/09/18 Cholecalciferol (Vitamin D3) (VITAMIN D3) 1,000 Unit Tablet, 1000 UNIT PO QDAY, TAB 06/20/17 Albuterol Sulfate 90 Mcg/Act (PROAIR HFA 90 MCG/ACT) 8.5 Gm Hfa.aer.ad, 2 PUFF IH Q4-6H PRN for DYSPNEA, INHALER 01/27/17 Multivitamin (MULTIVITAMINS) 1 Each Capsule, 1 EACH PO DAILY, CAPSULE 12/08/16 Discontinued Reported Medications Sertraline Hcl (ZOLOFT) 50 Mg Tablet, 1 TAB PO QDAY, TAB 08/10/18 Budesonide/Formoterol Fumarate (SYMBICORT 160-4.5 MCG INHALER) 10.2 Gm Inh, 2 PUFF INH BID, INH 07/09/18 Fluticasone/Vilanterol (Breo Ellipta 200-25 Mcg INH) 1 Each Blst.w.dev, 1 PUFF INH QDAY 05/28/18 Discontinued Scripts Tramadol Hcl (TRAMADOL HCL) 50 Mg Tablet, 50 MG PO Q4-6H PRN for PAIN, #8 TAB Prov:NINA GORDON CHIEF NURSE 08/15/18 Ondansetron 4 Mg Odt (ONDANSETRON 4 MG ODT) 4 Mg Tab.rapdis, 4 MG PO Q6H PRN for NAUSEA/VOMITING, #20 TAB 0 Refills Prov:GARY RODRIGUEZ MD 08/06/18 Reviewed Nurses Notes: Yes Hx Smoking: Yes Smoking Status: Light Tobacco Smoker Exposure to Second Hand Smoke?: No Hx Substance Use Disorder: No Hx Alcohol Use: No Constitutional Vital Sign - Last 24 Hours 08/24/18 08/24/18 08/24/18 08/24/18 20:38 20:47 20:49 20:53 Temp 98.7 Pulse ??? 89 90 Resp 12 16 B/P (MAP) 150/95 150/95 (113) Pulse Ox 96 95 O2 Delivery Room Air 08/24/18 08/24/18 08/24/18 08/24/18 21:00 21:08 21:19 21:23 Pulse ??? 91 Resp 19 16 B/P (MAP) 161/103 (122) 173/115 (134) Pulse Ox 95 96 08/24/18 08/24/18 08/24/18 08/24/18 21:28 21:30 21:38 21:53 Pulse 89 ??? Resp 13 B/P (MAP) 158/106 (123) Pulse Ox 96 O2 Flow Rate 2.0 08/24/18 08/24/18 08/24/18 08/24/18 22:00 22:05 22:20 22:30 Pulse 92 94 Resp 15 14 B/P (MAP) 149/93 (111) 137/89 (105) Pulse Ox 96 97 08/24/18 08/24/18 08/24/18 08/24/18 22:35 22:50 23:00 23:05 Pulse 89 90 ??? Resp 18 19 B/P (MAP) ???/??? (1665) Pulse Ox 96 97 08/24/18 08/24/18 08/24/18 08/24/18 23:20 23:30 23:35 23:50 Pulse ? 83 B/P (MAP) ???/??? (1665) Pulse Ox 97 08/25/18 08/25/18 08/25/18 08/25/18 00:00 00:05 00:20 00:30 Pulse ??? 87 B/P (MAP) 130/81 (97) 119/92 (101) Pulse Ox 96 97 08/25/18 08/25/18 08/25/18 00:35 00:50 01:00 Pulse 86 86 86 Pulse Ox 97 96 Intake and Output 08/24/18 08/24/18 08/25/18 15:00 23:00 07:00 Intake Total 1000 ml Balance 1000 ml Physical Exam General Appearance: The patient is alert. No acute distress. Eyes: Pupils are equal, round. Reactive to light. No pallor, injection or icterus. Extraocular movements are intact. ENT: Mucous membranes are moist. Normal oral mucosa. Posterior oropharynx is normal. Normal nasal mucosa. Normal tympanic membranes and canals. Neck: Supple and non tender. Respiratory: Lungs with some wheezing, otherwise clear. Cardiovascular: Regular rate and rhythm. No murmurs, gallops or rubs. Normal capillary refill. No edema. Gastrointestinal: Abdomen is soft and non tender. Nondistended. Normal active bowel sounds. Neurological: Alert and oriented x3. She is a little slow to speak but is able to talk to me and make sense, no of his evidence of confusion. Cranial nerves are normal with no facial droop, normal sensation, midline tongue, symmetric palate elevation, and I exam as noted. She has generalized weakness throughout but is able to move arms and legs. Strength is equal bilaterally as is sensatio n. No focal neurologic deficits in the extremities. Skin: Warm and dry. Musculoskeletal: Extremities are nontender. No tenderness in palpation of chest wall or back. DIFFERENTIAL DIAGNOSIS: After history and physical exam, differential diagnosis was considered for patient with onset of speech difficulties. She has had this in the past and related to conversion or somatic problems. This does not appear to be focal. We'll check labs and imaging and go from there. Medical Decision Making Data Points Result Diagram: 08/24/18204408/24/182044 Laboratory Hematology Test 08/24/18 20:45 08/24/18 21:48 Red Blood Count 5.07 M/uL (4.17-5.56) Mean Corpuscular Volume 89.2 fL (80.0-96.0) Mean Corpuscular Hemoglobin 30.5 pg (26.0-33.0) Mean Corpuscular Hemoglobin Concent 34.1 g/dL (32.0-36.0) Red Cell Distribution Width 13.4 % (11.5-14.5) Mean Platelet Volume 9.6 fL (7.2-11.1) Neutrophils (%) (Auto) 66.7 % (39.4-72.5) Lymphocytes (%) (Auto) 23.2 % (17.6-49.6) Monocytes (%) (Auto) 8.8 % (4.1-12.4) Eosinophils (%) (Auto) 0.7 % (0.4-6.7) Basophils (%) (Auto) 0.6 % (0.3-1.4) Nucleated RBC Relative Count (auto) 0.0 /100WBC Neutrophils # (Auto) 4.2 K/uL (2.0-7.4) Lymphocytes # (Auto) 1.5 K/uL (1.3-3.6) Monocytes # (Auto) 0.6 K/uL (0.3-1.0) Eosinophils # (Auto) 0.0 K/uL (0.0-0.5) Basophils # (Auto) 0.0 K/uL (0.0-0.1) Nucleated RBC Absolute Count (auto) 0.00 K/uL Prothrombin Time 12.9 seconds (12.0-14.4) Prothromb Time International Ratio 0.98 Activated Partial Thromboplast Time 36 seconds (23-35) Sodium Level 137 mmol/L (137-145) Potassium Level 3.5 mmol/L (3.5-5.0) Chloride Level 96 mmol/L (98-107) Carbon Dioxide Level 31 mmol/L (22-31) Blood Urea Nitrogen 29 mg/dl (7-18) Creatinine 1.50 mg/dl (0.52-1.04) Glomerular Filtration Rate Calc 36.1 Random Glucose 106 mg/dl (75-110) Calcium Level 10.1 mg/dl (8.4-10.2) Total Bilirubin 0.1 mg/dl (0.2-1.3) Aspartate Amino Transf (AST/SGOT) 23 U/L (0-35) Alanine Aminotransferase (ALT/SGPT) 21 U/L (0-56) Alkaline Phosphatase 101 U/L (0-126) Troponin I < 0.012 ng/ml Total Protein 7.9 g/dl (6.3-8.2) Albumin 4.5 g/dl (3.5-5.0) Urine Color Straw Urine Clarity Clear Urine pH 5.0 pH (4.8-9.5) Urine Specific [place] 1.009 Urine Protein Negative mg/dL (NEGATIVE) Urine Glucose (UA) Negative mg/dL (NEGATIVE) Urine Ketones Negative mg/dL (NEGATIVE) Urine Blood Negative (NEGATIVE) Urine Nitrite Negative (NEGATIVE) Urine Bilirubin Negative (NEGATIVE) Urine Urobilinogen Negative mg/dL (0.2-1.9) Urine Leukocyte Esterase Trace (NEGATIVE) Urine RBC 1 /HPF (0-2/HPF) Urine WBC 5 /HPF (0-5/HPF) Urine Squamous Epithelial Cells Many /LPF (</=FEW) Urine Bacteria Few /HPF (NONE-FEW) Urine Mucus None /HPF (NONE-FEW) Chemistry Test 08/24/18 20:45 08/24/18 21:48 White Blood Count 6.4 k/uL (4.5-11.0) Red Blood Count 5.07 M/uL (4.17-5.56) Hemoglobin 15.4 g/dL (12.0-16.0) Hematocrit 45.2 % (34.0-47.0) Mean Corpuscular Volume 89.2 fL (80.0-96.0) Mean Corpuscular Hemoglobin 30.5 pg (26.0-33.0) Mean Corpuscular Hemoglobin Concent 34.1 g/dL (32.0-36.0) Red Cell Distribution Width 13.4 % (11.5-14.5) Platelet Count 255 K/uL (150-450) Mean Platelet Volume 9.6 fL (7.2-11.1) Neutrophils (%) (Auto) 66.7 % (39.4-72.5) Lymphocytes (%) (Auto) 23.2 % (17.6-49.6) Monocytes (%) (Auto) 8.8 % (4.1-12.4) Eosinophils (%) (Auto) 0.7 % (0.4-6.7) Basophils (%) (Auto) 0.6 % (0.3-1.4) Nucleated RBC Relative Count (auto) 0.0 /100WBC Neutrophils # (Auto) 4.2 K/uL (2.0-7.4) Lymphocytes # (Auto) 1.5 K/uL (1.3-3.6) Monocytes # (Auto) 0.6 K/uL (0.3-1.0) Eosinophils # (Auto) 0.0 K/uL (0.0-0.5) Basophils # (Auto) 0.0 K/uL (0.0-0.1) Nucleated RBC Absolute Count (auto) 0.00 K/uL Prothrombin Time 12.9 seconds (12.0-14.4) Prothromb Time International Ratio 0.98 Activated Partial Thromboplast Time 36 seconds (23-35) Glomerular Filtration Rate Calc 36.1 Calcium Level 10.1 mg/dl (8.4-10.2) Total Bilirubin 0.1 mg/dl (0.2-1.3) Aspartate Amino Transf (AST/SGOT) 23 U/L (0-35) Alanine Aminotransferase (ALT/SGPT) 21 U/L (0-56) Alkaline Phosphatase 101 U/L (0-126) Troponin I < 0.012 ng/ml Total Protein 7.9 g/dl (6.3-8.2) Albumin 4.5 g/dl (3.5-5.0) Urine Color Straw Urine Clarity Clear Urine pH 5.0 pH (4.8-9.5) Urine Specific [place] 1.009 Urine Protein Negative mg/dL (NEGATIVE) Urine Glucose (UA) Negative mg/dL (NEGATIVE) Urine Ketones Negative mg/dL (NEGATIVE) Urine Blood Negative (NEGATIVE) Urine Nitrite Negative (NEGATIVE) Urine Bilirubin Negative (NEGATIVE) Urine Urobilinogen Negative mg/dL (0.2-1.9) Urine Leukocyte Esterase Trace (NEGATIVE) Urine RBC 1 /HPF (0-2/HPF) Urine WBC 5 /HPF (0-5/HPF) Urine Squamous Epithelial Cells Many /LPF (</=FEW) Urine Bacteria Few /HPF (NONE-FEW) Urine Mucus None /HPF (NONE-FEW) Coagulation Test 08/24/18 20:45 Prothrombin Time 12.9 seconds Prothromb Time International Ratio 0.98 Activated Partial Thromboplast Time 36 seconds Urinalysis Test 08/24/18 21:48 Urine Color Straw Urine Clarity Clear Urine pH 5.0 pH (4.8-9.5) Urine Specific [place] 1.009 Urine Protein Negative mg/dL (NEGATIVE) Urine Glucose (UA) Negative mg/dL (NEGATIVE) Urine Ketones Negative mg/dL (NEGATIVE) Urine Blood Negative (NEGATIVE) Urine Nitrite Negative (NEGATIVE) Urine Bilirubin Negative (NEGATIVE) Urine Urobilinogen Negative mg/dL (0.2-1.9) Urine Leukocyte Esterase Trace (NEGATIVE) Urine RBC 1 /HPF (0-2/HPF) Urine WBC 5 /HPF (0-5/HPF) Urine Squamous Epithelial Cells Many /LPF (</=FEW) Urine Bacteria Few /HPF (NONE-FEW) Urine Mucus None /HPF (NONE-FEW) EKG/Imaging Imaging HEAD CT: Indication: Weakness and speech disturbance. Technique: Contiguous axial sections were obtained from the base to the vertex without contrast enhancement. One of the following dose optimization techniques was utilized in the performance of this exam: Automated exposure control; adjustment of the mA an d/or kV according to the patient's size; or use of an iterative reconstruction technique. Specific details can be referenced in the facility's radiology CT exam operational policy. Comparison: 03/06/2018 Findings: There is no evidence of intra-axial or extra-axial hemorrhage. Mild cortical atrophy and periventricular hypoattenuation appear unchanged. No focal areas of decreased or increased attenuation are identified. There is no evidence of mass, edema, or shift of the midline structures. The size, shape, and configuration of the ventricular system are normal. The skeletal structures are intact and unremarkable. The visualized paranasal sinuses and mastoid air cells are clear. Impression: Stable mild atrophy. No acute deformity. Report Dictated By: Eduardo Guerra MD at 08/24/2018 9:40 PM MR BRAIN/BRAIN STEM W/O CON HISTORY: Difficulty with speech. COMPARISON: Head CT earlier same date and dating to 10/15/2016. There is also a prior head CT from 12/25/2015, but images are not currently available. No previous brain MR. TECHNIQUE: Multi-planar, multi-sequence brain MR was performed without contrast. CONTRAST: None. FINDINGS: Brain: There is no restricted diffusion to indicate acute or early subacute ischemia. No intracranial hemorrhage, mass, or edema. There are nonspecific periventricular, subcortical, and deep white matter T2 hyperintensities, mild in severity. There is a partially empty sella, nonspecific but can be idiopathic, unchanged from October 2016. Sulci, ventricles, and cisterns: Sulci are normal. The ventricles are normal in size and configuration. The basilar cisterns are patent. Vessels: The vascular flow voids are normal. Osseous structures: Intact. Paranasal sinuses and mastoids: There is mild mucosal thickening of the ethmoid sinuses. Leftward nasal septal deviation. There is a 1 cm polyp in the right nasal cavity superior to the middle turbinate (axial image 8 series 6 and coronal image 4 series 7). There is opacification of some of the left mastoid air cells, chronic, and likely a benign effusion. Right mastoid is clear. Orbits and soft tissues: Normal. IMPRESSION: 1. No acute process or findings to account for patient's symptoms. Specifically, no acute infarct/ischemia. 2. Nonspecific white matter changes are most likely due to chronic microvascular ischemic change, mild in severity 3. Right nasal polyp. Report Dictated By: Debi Vanegas at 08/24/2018 11:53 PM ED Course/Re-evaluation Clinical Indication for ER IV: IV Access ED Course Labs unremarkable. CT scan negative. MRI obtained and negative as well. Patient has mostly regained her speech abilities, slightly slow. We talked about stress and anxiety is possible cause however she would prefer to go home at this time but I did offer behavioral health as an option for her as well. Decision to Disposition Date: August 25, 2018 Decision to Disposition Time: 00:51 Depart Departure Latest Vital Signs Vital Signs Date Time Temp Pulse Resp B/P (MAP) Pulse Ox O2 Delivery O2 Flow Rate FiO2 08/25/18 01:00 86 08/25/18 00:50 96 08/25/18 00:30 119/92 (101) 08/24/18 22:50 19 08/24/18 21:28 2.0 08/24/18 20:47 98.7 Room Air Core Temperature (Celsius): 37.23 Impression: Primary Impression: Aphasia of unknown origin Condition: Improved Disposition: HOME OR SELF-CARE Referrals: SKINNY EMMANUEL MD (PCP) Additional Instructions: Your speech tonight seems to be improving. We think that this is a result of your body converting stress to a physical problem. We have seen this happen with you in the past. If you feel worse, we can always re-evaluate. We can also admit to behavioral h ealth if you think this would be helpful. No changes to medications. Rest for the next few days and increase fluid intake a little as well. GARY RODRIGUEZ MD August 24, 2018 20:49
[2018-08-24] MEDS ORDERED: NS(*) 0.9% 1000 ML BAG 1,000 ML IV ONE (20:50)
[2018-08-24 20:59] LABS: PLATELET COUNT, AUTOMATED 255 K/uL (150-450)
--- NOTE | 2018-08-24 21:05 | EKG ---
FACILITY: [facility] - [place] PATIENT NAME: FLORENCIO CRUZ : [id number] MR: [id number] V: [id number] EXAM DATE: ORDERING PHYSICIAN: GARY RODRIGUEZ TECHNOLOGIST: ANITA Test Reason : WEAKNESS Blood Pressure : / mmHG Vent. Rate : 090 BPM Atrial Rate : 090 BPM P-R Int : 140 ms QRS Dur : 078 ms QT Int : 382 ms P-R-T Axes : 066 032 066 degrees QTc Int : 467 ms Sinus rhythm Probable left atrial enlargement Poor R wave progression anteriorly Nonspecific T wave findings anteriorly Confirmed by ARIELLE MCCOY ([id number]) on 08/25/2018 2:08:38 AM Referred By: Confirmed By:ARIELLE MCCOY
[2018-08-24 21:08] LABS: INR 0.98
--- NOTE | 2018-08-24 21:48 | RADIOLOGY IMAGING REPORT ---
FACILITY: [facility] - [place] PATIENT NAME: Natividad Loaiza : 1965 MR: [id number] V: [id number] EXAM DATE: ORDERING PHYSICIAN: GARY RODRIGUEZ TECHNOLOGIST: Location: [facility] Patient: Natividad Loaiza : 1965 Visit/Account:[id number] Date of Sevice: 08/24/[address]: Indication: Weakness and speech disturbance. Technique: Contiguous axial sections were obtained from the base to the vertex without contrast enhan cement. One of the following dose optimization techniques was utilized in the performance of this exam: Autom ated exposure control; adjustment of the mA and/or kV according to the patient's size; or use of an i terative reconstruction technique. Specific details can be referenced in the facility's radiology CT exam operational policy. Comparison: 03/06/2018 Findings: There is no evidence of intra-axial or extra-axial hemorrhage. Mild cortical atrophy and pe riventricular hypoattenuation appear unchanged. No focal areas of decreased or increased attenuation are identified. There is no evidence of mass, edema, or shift of the midline structures. The size, sh ape, and configuration of the ventricular system are normal. The skeletal structures are intact and u nremarkable. The visualized paranasal sinuses and mastoid air cells are clear. Impression: Stable mild atrophy. No acute deformity. Report Dictated By: Eduardo Guerra MD at 08/24/2018 9:40 PM Report E-Signed By: Eduardo Guerra MD at 08/24/2018 9:45 PM WSN:[id number]
--- NOTE | 2018-08-25 00:08 | RADIOLOGY IMAGING REPORT ---
FACILITY: [facility] PATIENT NAME: Natividad Loaiza : 1965 MR: [id number] V: [id number] EXAM DATE: ORDERING PHYSICIAN: GARY RODRIGUEZ TECHNOLOGIST: Location: [facility] Patient: Natividad Loaiza : 1965 Visit/Account:[id number] Date of Sevice: 08/24/2018 MR BRAIN/BRAIN STEM W/O CON HISTORY: Difficulty with speech. COMPARISON: Head CT earlier same date and dating to 10/15/2016. There is also a prior head CT from 12/06, but images are not currently available. No previous brain MR. TECHNIQUE: Multi-planar, multi-sequence brain MR was performed without contrast. CONTRAST: None. FINDINGS: Brain: There is no restricted diffusion to indicate acute or early subacute ischemia. No intracranial hemorrhage, mass, or edema. There are nonspecific periventricular, subcortical, and deep white matte r T2 hyperintensities, mild in severity. There is a partially empty sella, nonspecific but can be idi opathic, unchanged from October 2016. Sulci, ventricles, and cisterns: Sulci are normal. The ventricles are normal in size and configuratio n. The basilar cisterns are patent. Vessels: The vascular flow voids are normal. Osseous structures: Intact. Paranasal sinuses and mastoids: There is mild mucosal thickening of the ethmoid sinuses. Leftward eduardo al septal deviation. There is a 1 cm polyp in the right nasal cavity superior to the middle turbinate (axial image 8 series 6 and coronal image 4 series 7). There is opacification of some of the left ma stoid air cells, chronic, and likely a benign effusion. Right mastoid is clear. Orbits and soft tissues: Normal. IMPRESSION: 1. No acute process or findings to account for patient's symptoms. Specifically, no acute infarct/isc hemia. 2. Nonspecific white matter changes are most likely due to chronic microvascular ischemic change, mil d in severity 3. Right nasal polyp. Report Dictated By: Debi Vanegas at 08/24/2018 11:53 PM Report E-Signed By: Debi Vanegas at 08/25/2018 12:05 AM WSN:[id number]
[2018-08-25 00:30] VITALS: BP 119/92
== END 2018-08-25 01:18 | disposition home or self-care (01) ==
LOC: ER 20:56
DX: R47.01 Aphasia (principal)
CPT/HCPCS: 70450; 70551; 81001; 84484; 85025; 85610; 85730; 93005; 96360; 96361; 99284; J7030; 82040; 82247; 82310; 82374; 82435; 82565; 82947; 84075; 84132; 84155; 84295; 84450; 84460; 84520

== ENCOUNTER → 2018-08-24 | Outpatient (CLI) | payer MEDICARE, BC ==
[2018-06-30 14:50] VITALS: BMI 46.9
[~2018-08-24] MED LIST changes: +CITA-145 PO; -RANI-366 PO; +RANI-54 PO
== END ==
LOC: AMB 20:21
PROVIDERS: ATTEND Nurse Practitioner
DX: R47.81 Slurred speech (principal); R51 Headache; R53.1 Weakness
CPT/HCPCS: A0425; A0427

== ENCOUNTER → 2018-08-25 | Outpatient (CLI) | payer MEDICARE, BC ==
[2018-06-30 14:50] VITALS: BMI 46.9
== END ==
LOC: AMB 01:14
PROVIDERS: ATTEND Nurse Practitioner
DX: Z99.81 Dependence on supplemental oxygen (principal)
CPT/HCPCS: A0425; A0428

== ENCOUNTER → 2018-08-26 | Outpatient (CLI) | payer MEDICARE, BC ==
[2018-06-30 14:50] VITALS: BMI 46.9
== END ==
LOC: LAB 15:35
PROVIDERS: ATTEND Emergency Medicine
DX: R79.89 Other specified abnormal findings of blood chemistry (principal)
CPT/HCPCS: 36415; 84439; 84443; 84481; 86376; 86800

== ENCOUNTER 2018-08-29 18:10 | Emergency (ER) | payer MEDICARE, BC ==
[2018-06-30 14:50] VITALS: Wt 170.1 kg
--- NOTE | 2018-08-29 18:20 | ER Report ---
History and Physical Time Seen By MD: 18:20 HPI/ROS CHIEF COMPLAINT: Suicidal ideation HISTORY OF PRESENT ILLNESS: 53-year-old female patient presents to emergency room with complaint of suicidal ideation. Patient states she was stopped on her Zoloft one week ago. She states she was not tapered off of it. She states that since then she's been feeling very shaky, she feels like she is having her mind is racing. She states that she has not wanted to do anything and does feel like she would like to kill herself. She states that she would overdose on her medications to help with the shaking in the mind racing. Patient states she also very tender to the touch of both arms. She denies any fevers, chills, nausea, vomiting or diarrhea. She denies having shortness of breath or chest pain. REVIEW OF SYSTEMS: Respiratory: No cough, no dyspnea. Cardiovascular: No chest pain, no palpitations. Gastrointestinal: No vomiting, no abdominal pain. Musculoskeletal: No back pain. Allergies: Coded Allergies: aripiprazole (Verified Allergy, Intermediate, RASH, 08/10/18) escitalopram (Verified Allergy, Intermediate, RASH, 08/10/18) lithium (Verified Allergy, Intermediate, RASH, 08/10/18) lurasidone (Verified Allergy, Intermediate, 08/10/18) quetiapine (Verified Allergy, Intermediate, DIZZY, 08/10/18) DIzzy varenicline (Verified Allergy, Intermediate, SWELLING, 08/10/18) ciprofloxacin (Verified Allergy, Mild, N/V, 08/10/18) sulfamethoxazole (Verified Allergy, Mild, HIVES, 08/10/18) topiramate (Verified Allergy, Mild, UPSET STOMACH, 08/10/18) Upset stomach trimethoprim (Verified Allergy, Mild, HIVES, 08/10/18) metoprolol (Verified Allergy, Unknown, 08/10/18) dyspnea haloperidol (Verified Adverse Reaction, Severe, DYSTONIC REACTION, 08/10/18) adhesive tape (Verified Adverse Reaction, Mild, RASH, 08/10/18) fluticasone (Verified Adverse Reaction, Mild, THRUSH, 08/10/18) salmeterol (Verified Adverse Reaction, Mild, THRUSH, 08/10/18) Home Meds Active Scripts Azithromycin (ZITHROMAX) 250 Mg Tablet, 1 TAB PO DIRECTED, #36 TAB 3 Refills Take three times a week on , Wednesdays and Fridays. Prov:SKINNY EMMANUEL MD 07/30/18 Pramipexole Di-Hcl (MIRAPEX) 1 Mg Tablet, 1 MG PO DAILY, #90 TAB 3 Refills Prov:SKINNY EMMANUEL MD 07/30/18 Potassium Chloride (POTASSIUM CHLORIDE) 10 Meq Tab.er.prt, 10 MEQ PO QDAY for edema, #90 TAB 3 Refills Prov:SKINNY EMMANUEL MD 07/09/18 Famotidine (FAMOTIDINE) 20 Mg Tablet, 20 MG PO QDAY, #90 TAB 3 Refills Prov:SKINNY EMMANUEL MD 05/27/18 Hydrochlorothiazide (HYDROCHLOROTHIAZIDE) 25 Mg Tablet, 1 TAB PO QDAY, #30 TAB 11 Refills Prov:SKINNY EMMANUEL MD 05/05/18 Tiotropium [place] (SPIRIVA) 18 Mcg/Cap Inh, 2 PUFF INH DAILY, #1 INH 11 Refills Prov:SKINNY EMMANUEL MD 05/14/17 Reported Medications Formoterol Fumarate (PERFOROMIST) 20 Mcg/2 Ml Vial.neb, 2 ML IH BID 08/18/18 Budesonide (PULMICORT) 0.5 Mg/2 Ml Ampul.neb, 2 ML IH BID, ML 08/18/18 Melatonin (MELATONIN) 10 Mg Capsule, 10 MG PO QHS, CAPSULE 07/11/18 Melatonin/Pyridoxine (MELATONIN 5 MG TABLET) 1 Each Tablet, 2 EACH PO QHS 07/11/18 Bupropion Hcl (WELLBUTRIN SR) 150 Mg Tablet.er, 150 MG PO QDAY, TAB 07/11/18 Melatonin/Pyridoxine Hcl (B6) (MELATONIN 10 MG TABLET) 1 Each Tab.mphase, 1 EACH PO QHS 07/11/18 Hydroxyzine Pamoate (VISTARIL) 25 Mg Capsule, 25 MG PO Q8H PRN for ANXIETY/INSOMNIA, CAPSULE 07/11/18 Pantoprazole Sodium (PROTONIX) 40 Mg Granpkt.dr, 40 MG PO QDAY, PACK 06/29/18 Oxygen (OXYGEN) Inha, 2 L INH QDAY, L 01/09/18 Cholecalciferol (Vitamin D3) (VITAMIN D3) 1,000 Unit Tablet, 1000 UNIT PO QDAY, TAB 06/20/17 Albuterol Sulfate 90 Mcg/Act (PROAIR HFA 90 MCG/ACT) 8.5 Gm Hfa.aer.ad, 2 PUFF IH Q4-6H PRN for DYSPNEA, INHALER 01/27/17 Multivitamin (MULTIVITAMINS) 1 Each Capsule, 1 EACH PO DAILY, CAPSULE 12/08/16 Discontinued Scripts Tramadol Hcl (TRAMADOL HCL) 50 Mg Tablet, 50 MG PO Q4-6H PRN for PAIN, #8 TAB Prov:NINA GORDON INTERNAL WHOLESALER 08/15/18 Ondansetron 4 Mg Odt (ONDANSETRON 4 MG ODT) 4 Mg Tab.rapdis, 4 MG PO Q6H PRN for NAUSEA/VOMITING, #20 TAB 0 Refills Prov:GARY RODRIGUEZ MD 08/06/18 Past Medical/Surgical History Patient has a past medical history of 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 Patient has a surgical history of breast cancer, tonsillectomy, left shoulder surgery, left hand surgery, cholecystectomy. Reviewed Nurses Notes: Yes Hx Smoking: Yes Smoking Status: Light Tobacco Smoker Exposure to Second Hand Smoke?: No Hx Substance Use Disorder: No Hx Alcohol Use: No Constitutional Vital Sign - Last 24 Hours 08/29/18 18:18 Temp 97.5 Pulse 107 Resp 22 B/P (MAP) 146/71 Pulse Ox 92 O2 Delivery Nasal Cannula Physical Exam General Appearance: The patient is alert, has no immediate need for airway protection and no current signs of toxicity. Respiratory: Chest is non tender, lungs are diminished in the left lung to auscultation. Cardiac: regular rate and rhythm Gastrointestinal: Abdomen is soft and non tender, no masses, bowel sounds normal. Musculoskeletal: Neck: Neck is supple and non tender. Extremities have full range of motion and are non tender. Skin: No rashes or lesions. DIFFERENTIAL DIAGNOSIS: After history and physical exam differential diagnosis was considered for suicidal ideation, depression, withdrawal from serotonin. Medical Decision Making Data Points Result Diagram: 08/29/186 08/29/181815 Laboratory Hematology Test 08/29/18 18:15 08/29/18 18:16 Urine Color Yellow Urine Clarity Slightly-cloudy Urine pH 5.0 pH (4.8-9.5) Urine Specific [place] 1.015 Urine Protein Negative mg/dL (NEGATIVE) Urine Glucose (UA) Negative mg/dL (NEGATIVE) Urine Ketones Negative mg/dL (NEGATIVE) Urine Blood Negative (NEGATIVE) Urine Nitrite Negative (NEGATIVE) Urine Bilirubin Negative (NEGATIVE) Urine Urobilinogen Negative mg/dL (0.2-1.9) Urine Leukocyte Esterase Small (NEGATIVE) Urine RBC 1 /HPF (0-2/HPF) Urine WBC 11 /HPF (0-5/HPF) Urine Squamous Epithelial Cells Many /LPF (</=FEW) Urine Bacteria Few /HPF (NONE-FEW) Urine Hyaline Casts Few /LPF (NONE-FEW) Urine Mucus None /HPF (NONE-FEW) Urine HCG, Qualitative Negative (NEGATIVE) Urine Opiates Screen Negative Urine Barbiturates Screen Negative Ur Tricyclic Antidepressants Screen Negative Urine Phencyclidine Screen Negative Urine Amphetamines Screen Negative Urine Benzodiazepines Screen Negative Urine Cocaine Screen Negative Urine Cannabinoids Screen Positive Red Blood Count 4.34 M/uL (4.17-5.56) Mean Corpuscular Volume 88.3 fL (80.0-96.0) Mean Corpuscular Hemoglobin 31.0 pg (26.0-33.0) Mean Corpuscular Hemoglobin Concent 35.1 g/dL (32.0-36.0) Red Cell Distribution Width 13.3 % (11.5-14.5) Mean Platelet Volume 10.2 fL (7.2-11.1) Neutrophils (%) (Auto) 68.8 % (39.4-72.5) Lymphocytes (%) (Auto) 20.7 % (17.6-49.6) Monocytes (%) (Auto) 8.5 % (4.1-12.4) Eosinophils (%) (Auto) 1.0 % (0.4-6.7) Basophils (%) (Auto) 1.0 % (0.3-1.4) Nucleated RBC Relative Count (auto) 0.1 /100WBC Neutrophils # (Auto) 5.1 K/uL (2.0-7.4) Lymphocytes # (Auto) 1.5 K/uL (1.3-3.6) Monocytes # (Auto) 0.6 K/uL (0.3-1.0) Eosinophils # (Auto) 0.1 K/uL (0.0-0.5) Basophils # (Auto) 0.1 K/uL (0.0-0.1) Nucleated RBC Absolute Count (auto) 0.00 K/uL Sodium Level 136 mmol/L (137-145) Potassium Level 3.2 mmol/L (3.5-5.0) Chloride Level 98 mmol/L (98-107) Carbon Dioxide Level 31 mmol/L (22-31) Blood Urea Nitrogen 25 mg/dl (7-18) Creatinine 1.20 mg/dl (0.52-1.04) Glomerular Filtration Rate Calc 46.6 Random Glucose 123 mg/dl (75-110) Calcium Level 9.7 mg/dl (8.4-10.2) Magnesium Level 1.5 mg/dl (1.7-2.2) Total Bilirubin 0.1 mg/dl (0.2-1.3) Aspartate Amino Transf (AST/SGOT) 20 U/L (0-35) Alanine Aminotransferase (ALT/SGPT) 18 U/L (0-56) Alkaline Phosphatase 98 U/L (0-126) Total Protein 6.6 g/dl (6.3-8.2) Albumin 3.8 g/dl (3.5-5.0) Salicylates Level < 10 mg/L Salicylate Last Dose Date unk Acetaminophen Level < 10 ug/ml Serum Alcohol < 10 mg/dl Chemistry Test 08/29/18 18:15 08/29/18 18:16 Urine Color Yellow Urine Clarity Slightly-cloudy Urine pH 5.0 pH (4.8-9.5) Urine Specific [place] 1.015 Urine Protein Negative mg/dL (NEGATIVE) Urine Glucose (UA) Negative mg/dL (NEGATIVE) Urine Ketones Negative mg/dL (NEGATIVE) Urine Blood Negative (NEGATIVE) Urine Nitrite Negative (NEGATIVE) Urine Bilirubin Negative (NEGATIVE) Urine Urobilinogen Negative mg/dL (0.2-1.9) Urine Leukocyte Esterase Small (NEGATIVE) Urine RBC 1 /HPF (0-2/HPF) Urine WBC 11 /HPF (0-5/HPF) Urine Squamous Epithelial Cells Many /LPF (</=FEW) Urine Bacteria Few /HPF (NONE-FEW) Urine Hyaline Casts Few /LPF (NONE-FEW) Urine Mucus None /HPF (NONE-FEW) Urine HCG, Qualitative Negative (NEGATIVE) Urine Opiates Screen Negative Urine Barbiturates Screen Negative Ur Tricyclic Antidepressants Screen Negative Urine Phencyclidine Screen Negative Urine Amphetamines Screen Negative Urine Benzodiazepines Screen Negative Urine Cocaine Screen Negative Urine Cannabinoids Screen Positive White Blood Count 7.4 k/uL (4.5-11.0) Red Blood Count 4.34 M/uL (4.17-5.56) Hemoglobin 13.5 g/dL (12.0-16.0) Hematocrit 38.3 % (34.0-47.0) Mean Corpuscular Volume 88.3 fL (80.0-96.0) Mean Corpuscular Hemoglobin 31.0 pg (26.0-33.0) Mean Corpuscular Hemoglobin Concent 35.1 g/dL (32.0-36.0) Red Cell Distribution Width 13.3 % (11.5-14.5) Platelet Count 235 K/uL (150-450) Mean Platelet Volume 10.2 fL (7.2-11.1) Neutrophils (%) (Auto) 68.8 % (39.4-72.5) Lymphocytes (%) (Auto) 20.7 % (17.6-49.6) Monocytes (%) (Auto) 8.5 % (4.1-12.4) Eosinophils (%) (Auto) 1.0 % (0.4-6.7) Basophils (%) (Auto) 1.0 % (0.3-1.4) Nucleated RBC Relative Count (auto) 0.1 /100WBC Neutrophils # (Auto) 5.1 K/uL (2.0-7.4) Lymphocytes # (Auto) 1.5 K/uL (1.3-3.6) Monocytes # (Auto) 0.6 K/uL (0.3-1.0) Eosinophils # (Auto) 0.1 K/uL (0.0-0.5) Basophils # (Auto) 0.1 K/uL (0.0-0.1) Nucleated RBC Absolute Count (auto) 0.00 K/uL Glomerular Filtration Rate Calc 46.6 Calcium Level 9.7 mg/dl (8.4-10.2) Magnesium Level 1.5 mg/dl (1.7-2.2) Total Bilirubin 0.1 mg/dl (0.2-1.3) Aspartate Amino Transf (AST/SGOT) 20 U/L (0-35) Alanine Aminotransferase (ALT/SGPT) 18 U/L (0-56) Alkaline Phosphatase 98 U/L (0-126) Total Protein 6.6 g/dl (6.3-8.2) Albumin 3.8 g/dl (3.5-5.0) Salicylates Level < 10 mg/L Salicylate Last Dose Date unk Acetaminophen Level < 10 ug/ml Serum Alcohol < 10 mg/dl Toxicology Test 08/29/18 18:15 08/29/18 18:16 Urine Opiates Screen Negative Urine Barbiturates Screen Negative Ur Tricyclic Antidepressants Screen Negative Urine Phencyclidine Screen Negative Urine Amphetamines Screen Negative Urine Benzodiazepines Screen Negative Urine Cocaine Screen Negative Urine Cannabinoids Screen Positive Salicylates Level < 10 mg/L Salicylate Last Dose Date unk Acetaminophen Level < 10 ug/ml Serum Alcohol < 10 mg/dl Urinalysis Test 08/29/18 18:15 Urine Color Yellow Urine Clarity Slightly-cloudy Urine pH 5.0 pH (4.8-9.5) Urine Specific [place] 1.015 Urine Protein Negative mg/dL (NEGATIVE) Urine Glucose (UA) Negative mg/dL (NEGATIVE) Urine Ketones Negative mg/dL (NEGATIVE) Urine Blood Negative (NEGATIVE) Urine Nitrite Negative (NEGATIVE) Urine Bilirubin Negative (NEGATIVE) Urine Urobilinogen Negative mg/dL (0.2-1.9) Urine Leukocyte Esterase Small (NEGATIVE) Urine RBC 1 /HPF (0-2/HPF) Urine WBC 11 /HPF (0-5/HPF) Urine Squamous Epithelial Cells Many /LPF (</=FEW) Urine Bacteria Few /HPF (NONE-FEW) Urine Hyaline Casts Few /LPF (NONE-FEW) Urine Mucus None /HPF (NONE-FEW) Urine HCG, Qualitative Negative (NEGATIVE) EKG/Imaging Imaging CHEST PA LAT Additional pertinent History: SOB. COMPARISON STUDIES: 07/04/2018 FINDINGS: Support lines and catheters: None Lungs and Pleura: Lung fountain well expanded with no infiltrates or consolidations. No parenchymal mass lesions are seen. There are no effusions Heart and vasculature: Negative. Tri and Mediastinum: Negative. Bones and Chest wall: Negative. Upper Abdomen: Negative. IMPRESSION: 1. Negative chest for acute cardiopulmonary disease. No interval change when compared to previous chest x-rays. Report Dictated By: Vincenzo Malik MD at 08/29/2018 7:02 PM Report E-Signed By: Vincenzo Malik MD at 08/29/2018 7:04 PM ED Course/Re-evaluation ED Course Patient was admitted to exam room, history and physical were obtained. Differential diagnoses were considered. On examination lungs are diminished in the left lung heart was regular, abdomen soft nontender. Lab work for a behavioral health admission were done. Patient states she did have a plan of committing suicide by taking all of her medications. Patient states she is concerned about the Zoloft being discontinued. She will use that as the underlying cause of her not feeling well. Lab results were fairly unremarkable for the patient. A chest x-ray was done which showed no acute cardiac program processes. I discussed the lab results in the patient with Dr. Villareal, psychiatrist, who agreed to accept the patient for admission. Patient did sign in voluntarily. Decision to Disposition Date: August 29, 2018 Decision to Disposition Time: 19:54 Depart Departure Latest Vital Signs Vital Signs Date Time Temp Pulse Resp B/P (MAP) Pulse Ox O2 Delivery O2 Flow Rate FiO2 08/29/18 18:18 97.5 107 22 146/71 92 Nasal Cannula Core Temperature (Celsius): 37.23 Impression: Primary Impression: Depression with suicidal ideation Condition: Condition Unchanged Disposition: XFER TO [facility] Referrals: SKINNY EMMANUEL MD (PCP) NINA GORDON August 29, 2018 18:20
[2018-08-29 18:30] VITALS: BP 139/67
[2018-08-29 18:53] LABS: PLATELET COUNT, AUTOMATED 235 K/uL (150-450)
--- NOTE | 2018-08-29 19:07 | RADIOLOGY IMAGING REPORT ---
FAC[place] [facility] [place] NAME: Natividad Loaiza : 1965 MR: [id number] V: [id number] EXAM DATE: ORDERING PHYSICIAN: NINA GORDON TECHNOLOGIST: Location: [facility] [place] Patient: Natividad Loaiza : 1965 Visit/Account:[id number] Date of Sevice: 08/29/2018 CHEST PA LAT Additional pertinent History: SOB. COMPARISON STUDIES: 07/04/2018 FINDINGS: Support lines and catheters: None Lungs and Pleura: Lung fountain well expanded with no infiltrates or consolidations. No parenchymal ma ss lesions are seen. There are no effusions Heart and vasculature: Negative. Tri and Mediastinum: Negative. Bones and Chest wall: Negative. Upper Abdomen: Negative. IMPRESSION: 1. Negative chest for acute cardiopulmonary disease. No interval change when compared to previous [facility] st x-rays. Report Dictated By: Vincenzo Malik MD at 08/29/2018 7:02 PM Report E-Signed By: Vincenzo Malik MD at 08/29/2018 7:04 PM WSN:[id number]
== END 2018-08-29 20:46 ==
LOC: ER 18:28
DX: F32.9 Major depressive disorder, single episode, unspecified (principal); R45.851 Suicidal ideations
CPT/HCPCS: 36415; 71046; 80305; 81001; 81025; 83735; 84443; 85025; 87088; 99284; G0480; 80320; 80329; 82040; 82247; 82310; 82374; 82435; 82565; 82947; 84075; 84132; 84155; 84295; 84450; 84460; 84520

== ENCOUNTER 2018-08-29 19:53 | Inpatient (IN) | payer MEDICARE, BC ==
[2018-06-30 14:50] VITALS: Ht 160 cm; Wt 125.2 kg
[~2018-08-29] VITALS: Ht 160 cm; Wt 125.2 kg
[2018-08-29] MEDS ORDERED: ACETAMINOPHEN 325 MG TAB PO PRN (20:40)
[2018-08-29] MEDS ORDERED: MAG HYD/AL HYD/SIMETH 30ML UDC PO PRN (20:40)
[2018-08-29 21:12] VITALS: BP 116/72
[2018-08-29] MEDS ORDERED: ALBUTEROL 8 GM INHALER INH PRN (21:55)
[2018-08-29] MEDS ORDERED: hydrOXYzine PAMOATE 25 MG CAP PO PRN (22:00)
[2018-08-29] MEDS ORDERED: SERTRALINE HCL 50 MG TAB PO ONE (22:00)
[2018-08-29] MEDS ORDERED: ALBUTEROL SULFATE INH PRN (22:15)
[2018-08-30 02:48] VITALS: BP 134/91
[2018-08-30] MEDS: BUDESO/FORMOT 160/4.5 MCG 6 GM INH SCH ×2 (06:01→17:40)
[2018-08-30] MEDS: TIOTROPIUM BROM INH 18 MCG/CAP INH SCH (06:01)
[2018-08-30] MEDS: PANTOPRAZOLE SOD 40 MG TABEC PO SCH (08:29)
[2018-08-30] MEDS: FAMOTIDINE 20 MG TAB PO SCH (08:29)
[2018-08-30] MEDS: HYDROCHLOROTHIAZIDE 25 MG TAB PO SCH (08:29)
[2018-08-30] MEDS: POTASSIUM CHL 10 MEQ TABCR PO SCH (08:29)
[2018-08-30] MEDS: buPROPion SR 150 MG TABCR PO SCH (08:29)
[2018-08-30] MEDS: CHOLECALCIFEROL 1000 UNIT TAB PO SCH (08:29)
[2018-08-30] MEDS ORDERED: AZITHROMYCIN 250 MG TAB PO SCH (09:00)
[2018-08-30] MEDS: CITALOPRAM HYDROBROM 20 MG TAB PO SCH (11:07)
[2018-08-30 13:57] VITALS: BP 133/78
--- NOTE | 2018-08-30 14:37 | HISTORY AND PHYSICAL ---
DATE OF ADMISSION: August 29, 2018 DATE OF INTERVIEW: August 30, 2018 at 9:00 a.m. ATTENDING PHYSICIAN Luisa Esteban MD CHIEF COMPLAINT "I am thinking I am having withdrawal from the serotonin. I was suicidal again". HISTORY OF PRESENT ILLNESS This is one of multiple admissions for this 53-year-old female who has a history of somatic symptoms disorder and depression who is here as a voluntary patient with a chief complaint of suicidal ideation related to discontinuing her Zoloft about 4 weeks ago. The patient went off the Zoloft due to the fact that she thought it was causing her GI upset. Since she went off of it, she has had a couple of visits to the emergency room with various somatic symptoms and also had one admission to [facility] a little over a week ago. After her last [facility] admission, she showed up in the ER again last Thursday saying that she could not think or talk. At that time, CAT scan of her head and workup was negative. She says that since she stopped the Zoloft, she has had a few spells where she is unable to speak, although she aware of what people are saying. She says that she is always on an emotional edge and that stupid things will cause her cry. She did feel very edgy yesterday and started having suicidal ideation and therefore came to the emergency room. In the ER, she was noted to be depressed and tearful and somewhat agitated and was voluntarily admitted to [facility]. PAST PSYCHIATRIC HISTORY The patient attends [facility] where she sees Velia for therapy every other week. She also attends two groups per week. She lives in the [facility] apartments. She has had multiple previous inpatient psychiatric admissions on [facility]. She reports a history of "up to 7" previous suicide attempts by overdose. She does have a history of cutting, although has not cut herself in the past month. FAMILY PSYCHIATRIC HISTORY Brother has autism spectrum disorder. Both parents suffered from alcohol use disorder, now both . PAST MEDICAL HISTORY * COPD. * Obesity. * Obstructive sleep apnea noncompliant with her BiPAP. * History of migraine headaches. * Left hand surgery. * Nerve injury secondary to left hand injury. 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 * Multiple medical complaints over the last few years consistent with somatic symptom disorder requiring frequent hospitalizations. SOCIAL HISTORY The patient was born in [place], [place] and raised there. Her parents were at the time of her . They remained , now both . She has never . She has no children. No significant other. She has one brother, one half-brother, one full biological sister who lives in [place]. Her brother lives here in [facility]. 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 She has been living at the [facility] since May 2018. LEGAL HISTORY None. SUBSTANCE ABUSE HISTORY The patient smokes 3 or 4 cigarettes per day. In the distant past she has used marijuana but none recently. She reports infrequent use of alcohol, denies use of other illicit substances. PHYSICAL EXAMINATION Please see the emergency room physician's report. Vital Signs: Temperature 98, pulse 77, respirations 16, blood pressure 133/78, pulse ox is 94% on 2 liters nasal cannula. LABORATORY DATA CBC is within normal limits. Sodium low at 136, potassium low at 3.2, BUN high at 25, creatinine high at 1.2, random glucose high at 123, magnesium low at 1.5, total bili low at 0.1, the remainder of the chemistry panel is normal. TSH is normal at 3.58. Urinalysis is within normal limits except for a small leukocyte esterase and 11 WBCs. Her tox screen is positive to cannabinoids. Serum alcohol is nil. MENTAL STATUS EXAMINATION GENERAL APPEARANCE, BEHAVIOR AND ATTITUDE: She is casually groomed, dressed in hospital scrubs wearing her portable oxygen. She displays good eye contact. SPEECH: Initially her speech was halting and stuttering, but that improved as our exam proceeded. MOOD/AFFECT: Depressed. She reported depression at a 5/10. THOUGHT CONTENT: She denied current suicidal ideation and says the last time she had suicidal thoughts was last evening. She denied homicidal ideation, auditory or visual hallucinations,and delusions. COGNITION: Alert and fully oriented to person, place, time, and situation. MEMORY: Intact for immediate, recent and remote recall. INTELLIGENCE: Average, based on interview. INSIGHT AND JUDGMENT: Fair. ASSESSMENT * Somatic symptom disorder. * Persistent depressive disorder. * Suicidal ideation. PLAN * We discussed her medications and have decided that she needs to be put back onto an SSRI. We have chosen Celexa 20 mg daily which she will begin today. * She will attend individual and group therapies. * We will help to confirm her outpatient follow up before she is discharged. * Her estimated length of stay is 3 to 4 days. MTDD
[2018-08-30] MEDS ORDERED: PRAMIPEXOLE DIHYDROCHL 0.25 MG PO SCH (21:00)
[2018-08-30] MEDS ORDERED: MELATONIN 3 MG TAB PO SCH ×2 (21:00)
[2018-08-30 22:10] VITALS: BP 120/67
[2018-08-31 05:29] VITALS: BP 118/64
[2018-08-31] MEDS: BUDESO/FORMOT 160/4.5 MCG 6 GM INH SCH (05:39)
[2018-08-31] MEDS: TIOTROPIUM BROM INH 18 MCG/CAP INH SCH (05:39)
[2018-08-31 08:05] VITALS: BP 117/68
[2018-08-31] MEDS: CITALOPRAM HYDROBROM 20 MG TAB PO SCH (08:17)
[2018-08-31] MEDS: HYDROCHLOROTHIAZIDE 25 MG TAB PO SCH (08:17)
[2018-08-31] MEDS: POTASSIUM CHL 10 MEQ TABCR PO SCH (08:18)
[2018-08-31] MEDS: PANTOPRAZOLE SOD 40 MG TABEC PO SCH (08:18)
[2018-08-31] MEDS: FAMOTIDINE 20 MG TAB PO SCH (08:18)
[2018-08-31] MEDS: buPROPion SR 150 MG TABCR PO SCH (08:18)
[2018-08-31] MEDS: CHOLECALCIFEROL 1000 UNIT TAB PO SCH (08:18)
[2018-08-31] MEDS ORDERED: CITA-145 PO (10:55)
[2018-08-31] MEDS ORDERED: AZIT-1 PO (11:04)
--- NOTE | 2018-09-02 16:14 | BHS Discharge Summary ---
[facility] Discharge Summary Wnaq-na-Xkkj Encounter Date: September 02, 2018 Szdq-zi-Aciw Encounter Time: 10:00 Reason-Hosp/Final Diag (DSM-V): (1) Persistent depressive disorder Status: Chronic Hospital Course & Plan: DATE OF ADMISSION: August 29, 2018 DATE OF INTERVIEW: August 30, 2018 at 9:00 a.m. ATTENDING PHYSICIAN Bahman Esteban MD CHIEF COMPLAINT "I am thinking I am having withdrawal from the serotonin. I was suicidal again". HISTORY OF PRESENT ILLNESS This is one of multiple admissions for this 53-year-old female who has a history of somatic symptoms disorder and depression who is here as a voluntary patient with a chief complaint of suicidal ideation related to discontinuing her Zoloft about 4 weeks ago. The patient went off the Zoloft due to the fact that she thought it was causing her GI upset. Since she went off of it, she has had a couple of visits to the emergency room with various somatic symptoms and also had one admission to [facility] a little over a week ago. After her last [facility] admission, she showed up in the ER again last Thursday saying that she could not think or talk. At that time, CAT scan of her head and workup was negative. She says that since she stopped the Zoloft, she has had a few spells where she is unable to speak, although she aware of what people are saying. She says that she is always on an emotional edge and that stupid things will cause her cry. She did feel very edgy yesterday and started having suicidal ideation and therefore came to the emergency room. In the ER, she was noted to be depressed and tearful and somewhat agitated and was voluntarily admitted to [facility]. PAST PSYCHIATRIC HISTORY The patient attends [facility] where she sees Velia for therapy every other week. She also attends two groups per week. She lives in the [facility] apartments. She has had multiple previous inpatient psychiatric admissions on [facility]. She reports a history of "up to 7" previous suicide attempts by overdose. She does have a history of cutting, although has not cut herself in the past month. HOSPITAL COURSE Pt was admitted to [facility] and maintained on suicide precautions. she said she really felt that she needed to be back on an SSRI, and we agreed-- she had done a good job of trying to see if she could manage without one, but had increased depression, agitation, anxiety, and increase in her "unresponsive spells." We elected to try citalopram, and this was well tolerated at 20 mg, without any GI upset. We discussed stopping smoking, weight loss, improved nutrition, counting calories, exercise. Also discussed importance of refraining from all cannabis use. She was cooperative and attended all groups. She was free of SI and ready for discharge back to outpatient care at [facility] by 08/31. (2) Somatic symptom disorder Status: Chronic Physical Exam Latest Vital Signs Vital Signs 08/31/18 08:05 Temp 98.5 Pulse 82 Resp 18 B/P (MAP) 117/68 (84) Pulse Ox 91 O2 Delivery Nasal Cannula O2 Flow Rate 2.0 Mental Status Exam General Appearance: Casual, Well Groomed, Good Eye Contact, Cooperative, Polite, Good Interaction Speech: Clear, Spontaneous, Normal Rate, Normal Rhythm, Normal Volume, Normal Tone Mood: Euthymic Affect: Full and Appropriate, Calm Thought Process: Organized, Logical, Goal Directed Thought Content: No Suicidal Ideation, No Homicidal Ideation, No Delusions, No Auditory Halllucinations, No Visual Hallucinations, No Thought Broadcasting, No Ideas of Reference, No Obsessions, No Compulsions, No Other Sensorium: Clear Cognition: Alert & Oriented-Person, Alert & Oriented-Place, Alert & Oriented- Time, Kcmba-Dziksznx-Kvaehfrbe Memory: Immediate, Recent, Remote Intelligence: Average Insight Judgment: Fair Departure Item Value Date Time White Blood Count 7.4 k/uL 08/29/181815 Red Blood Count 4.34 M/uL 08/29/181815 Hemoglobin 13.5 g/dL 08/29/181815 Hematocrit 38.3 % 08/29/181815 Mean Corpuscular Volume 88.3 fL 08/29/181815 Mean Corpuscular Hemoglobin 31.0 pg 08/29/181815 Mean Corpuscular Hemoglobin Concent 35.1 g/dL 08/29/181815 Red Cell Distribution Width 13.3 % 08/29/181815 Platelet Count 235 K/uL 08/29/181815 Sodium Level 136 mmol/L L 08/29/181815 Potassium Level 3.2 mmol/L L 08/29/181815 Chloride Level 98 mmol/L 08/29/181815 Carbon Dioxide Level 31 mmol/L 08/29/181815 Blood Urea Nitrogen 25 mg/dl H 08/29/181815 Creatinine 1.20 mg/dl H 08/29/181815 Glomerular Filtration Rate Calc 46.6 08/29/18 181 Whole Blood Glucose 115 mg/DL H 08/21/181810 Random Glucose 123 mg/dl H 08/29/18 181 Calcium Level 9.7 mg/dl 08/29/181815 Magnesium Level 1.5 mg/dl L 08/29/18 181 Total Bilirubin 0.1 mg/dl L 08/29/181815 Aspartate Amino Transf (AST/SGOT) 20 U/L 08/29/18 181 Alanine Aminotransferase (ALT/SGPT) 18 U/L 08/29/181815 Alkaline Phosphatase 98 U/L 08/29/181815 Albumin 3.8 g/dl 08/29/181815 Thyroid Stimulating Hormone (TSH) 2.38 uIU/ml 08/29/181815 Urine Color Yellow 08/29/181814 Urine Clarity Slightly-cloudy 08/29/181814 Urine pH 5.0 pH 08/29/181814 Urine Specific [place] 1.015 08/29/181814 Urine Protein Negative mg/dL 08/29/181814 Urine Glucose (UA) Negative mg/dL 08/29/181814 Urine Ketones Negative mg/dL 08/29/181814 Urine Blood Negative 08/29/181814 Urine Nitrite Negative 08/29/181814 Urine Bilirubin Negative 08/29/181814 Urine Urobilinogen Negative mg/dL 08/29/181814 Urine Leukocyte Esterase Small H 08/29/181814 Urine HCG, Qualitative Negative 08/29/181814 Salicylates Level < 10 mg/L 08/29/181815 Salicylate Last Dose Date unk 08/29/181815 Urine Opiates Screen Negative 08/29/185 Acetaminophen Level < 10 ug/ml 08/29/181815 Urine Barbiturates Screen Negative 08/29/181814 Valproic Acid (Depakene) Level 14.9 ug/ml 07/07/17 1340 Ur Tricyclic Antidepressants Screen Negative 08/29/181814 Urine Phencyclidine Screen Negative 08/29/181814 Urine Amphetamines Screen Negative 08/29/181814 Urine Benzodiazepines Screen Negative 08/29/181814 Urine Cocaine Screen Negative 08/29/181814 Urine Cannabinoids Screen Positive 08/29/181814 Serum Alcohol < 10 mg/dl 08/29/181815 Condition: Improved Discharge to: Home Discharge Instructions Home Meds Active Scripts Azithromycin (ZITHROMAX) 250 Mg Tablet, 1 TAB PO DIRECTED, #36 TAB 3 Refills Take three times a week on , Wednesdays and Fridays. Prov:SKINNY EMMANUEL MD 07/30/18 Pramipexole Di-Hcl (MIRAPEX) 1 Mg Tablet, 1 MG PO DAILY, #90 TAB 3 Refills Prov:SKINNY EMMANUEL MD 07/30/18 Potassium Chloride (POTASSIUM CHLORIDE) 10 Meq Tab.er.prt, 10 MEQ PO QDAY for edema, #90 TAB 3 Refills Prov:SKINNY EMMANUEL MD 07/09/18 Famotidine (FAMOTIDINE) 20 Mg Tablet, 20 MG PO QDAY, #90 TAB 3 Refills Prov:SKINNY EMMANUEL MD 05/27/18 Hydrochlorothiazide (HYDROCHLOROTHIAZIDE) 25 Mg Tablet, 1 TAB PO QDAY, #30 TAB 11 Refills Prov:SKINNY EMMANUEL MD 05/05/18 Tiotropium [place] (SPIRIVA) 18 Mcg/Cap Inh, 2 PUFF INH DAILY, #1 INH 11 Refills Prov:SKINNY EMMANUEL MD 05/14/17 Reported Medications Citalopram Hydrobromide (CITALOPRAM HBR) 20 Mg Tablet, 20 MG PO QAM, #5 TAB 08/31/18 Formoterol Fumarate (PERFOROMIST) 20 Mcg/2 Ml Vial.neb, 2 ML IH BID 08/18/18 Budesonide (PULMICORT) 0.5 Mg/2 Ml Ampul.neb, 2 ML IH BID, ML 08/18/18 Melatonin (MELATONIN) 10 Mg Capsule, 10 MG PO QHS, CAPSULE 07/11/18 Bupropion Hcl (WELLBUTRIN SR) 150 Mg Tablet.er, 150 MG PO QDAY, TAB 07/11/18 Hydroxyzine Pamoate (VISTARIL) 25 Mg Capsule, 25 MG PO Q8H PRN for ANXIETY/INSOMNIA, CAPSULE 07/11/18 Pantoprazole Sodium (PROTONIX) 40 Mg Granpkt.dr, 40 MG PO QDAY, PACK 06/29/18 Oxygen (OXYGEN) Inha, 2 L INH QDAY, L 01/09/18 Cholecalciferol (Vitamin D3) (VITAMIN D3) 1,000 Unit Tablet, 1000 UNIT PO QDAY, TAB 06/20/17 Albuterol Sulfate 90 Mcg/Act (PROAIR HFA 90 MCG/ACT) 8.5 Gm Hfa.aer.ad, 2 PUFF IH Q4-6H PRN for DYSPNEA, INHALER 01/27/17 Multivitamin (MULTIVITAMINS) 1 Each Capsule, 1 EACH PO DAILY, CAPSULE 12/08/16 Discontinued Reported Medications Melatonin/Pyridoxine (MELATONIN 5 MG TABLET) 1 Each Tablet, 2 EACH PO QHS 07/11/18 Melatonin/Pyridoxine Hcl (B6) (MELATONIN 10 MG TABLET) 1 Each Tab.mphase, 1 EACH PO QHS 07/11/18 Multpiple Antipsychotics Used: No Diet: Regular Activity: As Tolerated Special Instructions: Take medications as prescribed. Follow up with outpatient provider for medication management. Follow up with outpatient therapy. Contact your outpatient provider to help you decide if you need to return to the ER. BAHMAN ESTEBAN MD September 02, 2018 16:14
[2018-09-03] MEDS ORDERED: PANT40SU3 PO (10:55)
== END 2018-08-31 12:27 | disposition home or self-care (01) | DRG 881 ==
LOC: BHS 19:53
PROVIDERS: ADMIT Psychiatry & Neurology Psychiatry; ATTEND Psychiatry & Neurology Psychiatry
DX: F34.1 Dysthymic disorder (principal); Z68.42 Body mass index [BMI] 45.0-49.9, adult; R45.851 Suicidal ideations; F45.0 Somatization disorder; G47.33 Obstructive sleep apnea (adult) (pediatric); J44.9 Chronic obstructive pulmonary disease, unspecified; E66.9 Obesity, unspecified; Z89.022 Acquired absence of left finger(s); Z99.81 Dependence on supplemental oxygen; Z90.49 Acquired absence of other specified parts of digestive tract; Z91.5 Personal history of self-harm
CPT/HCPCS: 36415; 71046; 80305; 80320; 80329; 81001; 81025; 82040; 82247; 82310; 82374; 82435; 82565; 82947; 83735; 84075; 84132; 84155; 84295; 84443; 84450; 84460; 84520; 85025; 87088; 94640; 99284; J3535

== ENCOUNTER 2018-09-10 20:19 | Observation (INO) | payer MEDICARE, BC ==
[~2018-09-10] VITALS: Ht 160 cm; Wt 124.3 kg
--- NOTE | 2018-09-10 20:28 | ER Report ---
History and Physical Time Seen By MD: 20:28 HPI/ROS CHIEF COMPLAINT: trouble breathing HISTORY OF PRESENT ILLNESS: This is a 53 year old female. She started having trouble breathing about 1 week ago. Steadily worsening through the week. Saw her PCP this morning, had a chest x-ray done which was negative. Started on Prednisone 20mg twice a day. Taking her breathing treatments today, helped temporarily, but then would worsen. Erin, took her DuoNeb and did not help much at all and very short of breath with increased wheezing, so came to the ER. She is no longer smoking, but uses Vaping. Has no chest pain, but does feel some tightness. Coughing has increased. No fevers noted. Has been having a more difficult time with her allergies. Allergies: Coded Allergies: aripiprazole (Verified Allergy, Intermediate, RASH, 08/10/18) escitalopram (Verified Allergy, Intermediate, RASH, 08/10/18) lithium (Verified Allergy, Intermediate, RASH, 08/10/18) lurasidone (Verified Allergy, Intermediate, 08/10/18) quetiapine (Verified Allergy, Intermediate, DIZZY, 08/10/18) DIzzy varenicline (Verified Allergy, Intermediate, SWELLING, 08/10/18) ciprofloxacin (Verified Allergy, Mild, N/V, 08/10/18) sulfamethoxazole (Verified Allergy, Mild, HIVES, 08/10/18) topiramate (Verified Allergy, Mild, UPSET STOMACH, 08/10/18) Upset stomach trimethoprim (Verified Allergy, Mild, HIVES, 08/10/18) metoprolol (Verified Allergy, Unknown, 08/10/18) dyspnea haloperidol (Verified Adverse Reaction, Severe, DYSTONIC REACTION, 08/10/18) adhesive tape (Verified Adverse Reaction, Mild, RASH, 08/10/18) fluticasone (Verified Adverse Reaction, Mild, THRUSH, 08/10/18) salmeterol (Verified Adverse Reaction, Mild, THRUSH, 08/10/18) Home Meds Active Scripts Prednisone (PREDNISONE) 20 Mg Tablet, 1 TAB PO BID for 5 Days, #10 TAB 0 Refills Prov:OMAR WEBSTER DNP, CRECHE ATTENDANT-BC 09/10/18 Benzonatate (BENZONATATE) 200 Mg Capsule, 1 CAP PO TID PRN for COUGH, #15 CAP 0 Refills Prov:OMAR WEBSTER DNP, CRECHE ATTENDANT-BC 09/10/18 Pantoprazole Sodium (PROTONIX) [address], 40 MG PO QDAY, #90 TAB 3 Refills Prov:SKINNY EMMANUEL MD 09/03/18 Azithromycin (ZITHROMAX) 250 Mg Tablet, 1 TAB PO DIRECTED, #36 TAB 3 Refills Take three times a week on , Wednesdays and Fridays. Prov:SKINNY EMMANUEL MD 07/30/18 Pramipexole Di-Hcl (MIRAPEX) 1 Mg Tablet, 1 MG PO DAILY, #90 TAB 3 Refills Prov:SKINNY EMMANUEL MD 07/30/18 Potassium Chloride (POTASSIUM CHLORIDE) 10 Meq Tab.er.prt, 10 MEQ PO QDAY for edema, #90 TAB 3 Refills Prov:SKINNY EMMANUEL MD 07/09/18 Famotidine (FAMOTIDINE) 20 Mg Tablet, 20 MG PO QDAY, #90 TAB 3 Refills Prov:SKINNY EMMANUEL MD 05/27/18 Hydrochlorothiazide (HYDROCHLOROTHIAZIDE) 25 Mg Tablet, 1 TAB PO QDAY, #30 TAB 11 Refills Prov:SKINNY EMMANUEL MD 05/05/18 Tiotropium [place] (SPIRIVA) 18 Mcg/Cap Inh, 2 PUFF INH DAILY, #1 INH 11 Refills Prov:SKINNY EMMANUEL MD 05/14/17 Reported Medications Budesonide/Formoterol Fumarate (SYMBICORT 160-4.5 MCG INHALER) 10.2 Gm Inh, 10.2 GM INH BID, INH 09/10/18 Citalopram Hydrobromide (CITALOPRAM HBR) 20 Mg Tablet, 20 MG PO QAM, #5 TAB 08/31/18 Melatonin (MELATONIN) 10 Mg Capsule, 10 MG PO QHS, CAPSULE 07/11/18 Bupropion Hcl (WELLBUTRIN SR) 150 Mg Tablet.er, 150 MG PO QDAY, TAB 07/11/18 Hydroxyzine Pamoate (VISTARIL) 25 Mg Capsule, 25 MG PO Q8H PRN for ANXIETY/INSOMNIA, CAPSULE 07/11/18 Oxygen (OXYGEN) Inha, 2 L INH QDAY, L 01/09/18 Cholecalciferol (Vitamin D3) (VITAMIN D3) 1,000 Unit Tablet, 1000 UNIT PO QDAY, TAB 06/20/17 Albuterol Sulfate 90 Mcg/Act (PROAIR HFA 90 MCG/ACT) 8.5 Gm Hfa.aer.ad, 2 PUFF IH Q4-6H PRN for DYSPNEA, INHALER 01/27/17 Multivitamin (MULTIVITAMINS) 1 Each Capsule, 1 EACH PO DAILY, CAPSULE 12/08/16 Discontinued Reported Medications Formoterol Fumarate (PERFOROMIST) 20 Mcg/2 Ml Vial.neb, 2 ML IH BID 08/18/18 Budesonide (PULMICORT) 0.5 Mg/2 Ml Ampul.neb, 2 ML IH BID, ML 08/18/18 Reviewed Nurses Notes: Yes Hx Smoking: Yes Smoking Status: Current: Every Day Smoker Exposure to Second Hand Smoke?: No Hx Substance Use Disorder: No Hx Alcohol Use: No Constitutional Vital Sign - Last 24 Hours 09/10/18 09/10/18 09/10/18 09/10/18 20:27 20:30 20:32 20:34 Temp 98.3 Pulse 93 82 Resp 24 26 B/P (MAP) 150/73 129/80 (96) Pulse Ox 92 95 O2 Delivery Nasal Cannula O2 Flow Rate 3.0 09/10/18 09/10/18 09/10/18 09/10/18 20:49 20:50 20:50 21:00 Pulse ??? 71 Resp 7 18 B/P (MAP) 119/84 (96) Pulse Ox 95 94 O2 Delivery Nasal Cannula O2 Flow Rate 3.0 09/10/18 09/10/18 09/10/18 09/10/18 21:04 21:16 21:19 21:30 Pulse 78 85 91 Resp 18 18 17 B/P (MAP) 129/66 (87) Pulse Ox 99 92 09/10/18 09/10/18 09/10/18 09/10/18 21:34 21:49 21:54 22:00 Pulse 92 89 93 Resp 20 19 14 B/P (MAP) 124/74 (91) Pulse Ox 89 89 90 09/10/18 09/10/18 09/10/18 22:09 22:24 22:30 Pulse 90 87 Resp 19 17 B/P (MAP) 127/79 (95) Pulse Ox 88 90 Physical Exam General Appearance: The patient is alert. No acute distress. Eyes: Pupils are equal, round. No pallor, injection or icterus. ENT: Mucous membranes are moist. Normal oral mucosa. Posterior oropharynx has some clear drainage. Neck: Supple and non tender. Respiratory: Lungs very tight with wheezing. Wheezing audible at the entrance to the exam room. No rales noted with auscultation. Has some increased work of breathing. Cardiovascular: Regular rate and rhythm. No murmurs heard. Gastrointestinal: Abdomen is soft and non tender. Nondistended. Normal active bowel sounds. Neurological: Alert and oriented x3 No focal neurologic deficits Skin: Warm and dry. No rashes. Musculoskeletal: Extremities are nontender. No tenderness in palpation of the cervical, thoracic and lumbar spine. DIFFERENTIAL DIAGNOSIS: After history and physical exam, differential diagnosis was considered for patient with COPD with definite wheezing, worsening despite home treatment as noted above. Medical Decision Making Data Points Result Diagram: 09/10/18205109/10/182051 Laboratory Hematology Test 09/10/18 20:52 Red Blood Count 4.15 M/uL (4.17-5.56) Mean Corpuscular Volume 89.4 fL (80.0-96.0) Mean Corpuscular Hemoglobin 31.3 pg (26.0-33.0) Mean Corpuscular Hemoglobin Concent 35.1 g/dL (32.0-36.0) Red Cell Distribution Width 13.3 % (11.5-14.5) Mean Platelet Volume 9.5 fL (7.2-11.1) Neutrophils (%) (Auto) 86.0 % (39.4-72.5) Lymphocytes (%) (Auto) 10.5 % (17.6-49.6) Monocytes (%) (Auto) 3.3 % (4.1-12.4) Eosinophils (%) (Auto) 0.1 % (0.4-6.7) Basophils (%) (Auto) 0.1 % (0.3-1.4) Nucleated RBC Relative Count (auto) 0.0 /100WBC Neutrophils # (Auto) 4.7 K/uL (2.0-7.4) Lymphocytes # (Auto) 0.6 K/uL (1.3-3.6) Monocytes # (Auto) 0.2 K/uL (0.3-1.0) Eosinophils # (Auto) 0.0 K/uL (0.0-0.5) Basophils # (Auto) 0.0 K/uL (0.0-0.1) Nucleated RBC Absolute Count (auto) 0.00 K/uL Sodium Level 137 mmol/L (137-145) Potassium Level 4.2 mmol/L (3.5-5.0) Chloride Level 97 mmol/L (98-107) Carbon Dioxide Level 32 mmol/L (22-31) Blood Urea Nitrogen 18 mg/dl (7-18) Creatinine 1.10 mg/dl (0.52-1.04) Glomerular Filtration Rate Calc 51.6 Random Glucose 148 mg/dl (75-110) Calcium Level 9.4 mg/dl (8.4-10.2) Total Bilirubin 0.3 mg/dl (0.2-1.3) Aspartate Amino Transf (AST/SGOT) 21 U/L (0-35) Alanine Aminotransferase (ALT/SGPT) 35 U/L (0-56) Alkaline Phosphatase 94 U/L (0-126) Total Protein 6.8 g/dl (6.3-8.2) Albumin 3.9 g/dl (3.5-5.0) Chemistry Test 09/10/18 20:52 White Blood Count 5.5 k/uL (4.5-11.0) Red Blood Count 4.15 M/uL (4.17-5.56) Hemoglobin 13.0 g/dL (12.0-16.0) Hematocrit 37.1 % (34.0-47.0) Mean Corpuscular Volume 89.4 fL (80.0-96.0) Mean Corpuscular Hemoglobin 31.3 pg (26.0-33.0) Mean Corpuscular Hemoglobin Concent 35.1 g/dL (32.0-36.0) Red Cell Distribution Width 13.3 % (11.5-14.5) Platelet Count 206 K/uL (150-450) Mean Platelet Volume 9.5 fL (7.2-11.1) Neutrophils (%) (Auto) 86.0 % (39.4-72.5) Lymphocytes (%) (Auto) 10.5 % (17.6-49.6) Monocytes (%) (Auto) 3.3 % (4.1-12.4) Eosinophils (%) (Auto) 0.1 % (0.4-6.7) Basophils (%) (Auto) 0.1 % (0.3-1.4) Nucleated RBC Relative Count (auto) 0.0 /100WBC Neutrophils # (Auto) 4.7 K/uL (2.0-7.4) Lymphocytes # (Auto) 0.6 K/uL (1.3-3.6) Monocytes # (Auto) 0.2 K/uL (0.3-1.0) Eosinophils # (Auto) 0.0 K/uL (0.0-0.5) Basophils # (Auto) 0.0 K/uL (0.0-0.1) Nucleated RBC Absolute Count (auto) 0.00 K/uL Glomerular Filtration Rate Calc 51.6 Calcium Level 9.4 mg/dl (8.4-10.2) Total Bilirubin 0.3 mg/dl (0.2-1.3) Aspartate Amino Transf (AST/SGOT) 21 U/L (0-35) Alanine Aminotransferase (ALT/SGPT) 35 U/L (0-56) Alkaline Phosphatase 94 U/L (0-126) Total Protein 6.8 g/dl (6.3-8.2) Albumin 3.9 g/dl (3.5-5.0) ED Course/Re-evaluation Clinical Indication for ER IV: IV Access ED Course Option levels have been between 3 and 4 L to keep her sats between 8891%. She did receive Solu-Medrol 125 mg IV. Also did 3 [id number] albuterol nebulizer treatments, wheezing did seem to increase after this and she felt better briefly but then felt worse again. I reviewed her x-ray from earlier and it shows no acute disease. This was not repeated tonight. After treatment, it was clear that I would not be able to get her improved enough to go home and she will need to stay in the hospital. I called and spoke with hospitalist who accepted her for admission for COPD exacerbation. Decision to Disposition Date: Sep 10, 2018 Decision to Disposition Time: 22:18 Depart Departure Latest Vital Signs Vital Signs Date Time Temp Pulse Resp B/P (MAP) Pulse Ox O2 Delivery O2 Flow Rate FiO2 09/10/18 22:30 127/79 (95) 09/10/18 22:24 87 17 90 09/10/18 20:50 Nasal Cannula 3.0 09/10/18 20:27 98.3 Core Temperature (Celsius): 37.23 Impression: Primary Impression: COPD exacerbation Condition: Condition Unchanged Disposition: Admitted from ER Referrals: SKINNY EMMANUEL MD (PCP) GARY RODRIGUEZ MD Sep 10, 2018 20:28
[2018-09-10] MEDS ORDERED: methylPREDNIS SUCC 125 MG/2ML IVP ONE (20:45)
[2018-09-10] MEDS ORDERED: ALBUTEROL 2.5 MG/3 ML NEB NEB ONE (20:45)
[2018-09-10 21:20] LABS: PLATELET COUNT, AUTOMATED 206 K/uL (150-450)
[2018-09-10 23:00] VITALS: BP 147/108
[2018-09-10] MEDS ORDERED: hydrOXYzine PAMOATE 25 MG CAP PO PRN (23:30)
[2018-09-10] MEDS ORDERED: INFLUENZA VIRUS VAC 0.5ML SYR IM ONLY ONE (23:30)
[2018-09-10] MEDS ORDERED: ALBUTEROL 2.5 MG/3 ML NEB NEB PRN (23:30)
[2018-09-10] MEDS ORDERED: BUDE10.2 INH (23:32)
--- NOTE | 2018-09-10 23:42 | History & Physical ---
History of Present Illness Chief Complaint Shortness of breath History of Present Illness This patient presented to the emergency room complaining of shortness of breath. She does have a history of COPD and started to have increased symptoms 5 days ago. She went to the clinic today, and was placed on prednisone. However, her breathing continued to worsen. She reports little improvement after receiving several nebulizers in the emergency department. History Problems: (1) Obstructive sleep apnea Status: Chronic (2) Hypertension Status: Chronic (3) Migraine headache Status: Chronic (4) GERD (gastroesophageal reflux disease) Status: Chronic (5) CKD (chronic kidney disease) stage 3, GFR 30-59 ml/min Status: Chronic (6) RLS (restless legs syndrome) Status: Chronic (7) History of hand surgery Status: Resolved (8) S/P cholecystectomy Status: Acute Home Meds Active Scripts Prednisone (PREDNISONE) 20 Mg Tablet, 1 TAB PO BID for 5 Days, #10 TAB 0 Refills Prov:OMAR WEBSTER DNP, [facility] 09/10/18 Benzonatate (BENZONATATE) 200 Mg Capsule, 1 CAP PO TID PRN for COUGH, #15 CAP 0 Refills Prov:OMAR WEBSTER DNP, [facility] 09/10/18 Pantoprazole Sodium (PROTONIX) 40 Mg , 40 MG PO QDAY, #90 TAB 3 Refills Prov:SKINNY EMMANUEL MD 09/03/18 Azithromycin (ZITHROMAX) 250 Mg Tablet, 1 TAB PO DIRECTED, #36 TAB 3 Refills Take three times a week on , Wednesdays and Fridays. Prov:SKINNY EMMANUEL MD 07/30/18 Pramipexole Di-Hcl (MIRAPEX) 1 Mg Tablet, 1 MG PO DAILY, #90 TAB 3 Refills Prov:SKINNY EMMANUEL MD 07/30/18 Potassium Chloride (POTASSIUM CHLORIDE) 10 Meq Tab.er.prt, 10 MEQ PO QDAY for edema, #90 TAB 3 Refills Prov:SKINNY EMMANUEL MD 07/09/18 Famotidine (FAMOTIDINE) 20 Mg Tablet, 20 MG PO QDAY, #90 TAB 3 Refills Prov:SKINNY EMMANUEL MD 05/27/18 Hydrochlorothiazide (HYDROCHLOROTHIAZIDE) 25 Mg Tablet, 1 TAB PO QDAY, #30 TAB 11 Refills Prov:SKINNY EMMANUEL MD 05/05/18 Tiotropium [place] (SPIRIVA) 18 Mcg/Cap Inh, 2 PUFF INH DAILY, #1 INH 11 Refills Prov:SKINNY EMMANUEL MD 05/14/17 Reported Medications Budesonide/Formoterol Fumarate (SYMBICORT 160-4.5 MCG INHALER) 10.2 Gm Inh, 10.2 GM INH BID, INH 09/10/18 Citalopram Hydrobromide (CITALOPRAM HBR) 20 Mg Tablet, 20 MG PO QAM, #5 TAB 08/31/18 Melatonin (MELATONIN) 10 Mg Capsule, 10 MG PO QHS, CAPSULE 07/11/18 Bupropion Hcl (WELLBUTRIN SR) 150 Mg Tablet.er, 150 MG PO QDAY, TAB 07/11/18 Hydroxyzine Pamoate (VISTARIL) 25 Mg Capsule, 25 MG PO Q8H PRN for ANXIETY/IN SOMNIA, CAPSULE 07/11/18 Oxygen (OXYGEN) Inha, 2 L INH QDAY, L 01/09/18 Cholecalciferol (Vitamin D3) (VITAMIN D3) 1,000 Unit Tablet, 1000 UNIT PO QDAY, TAB 06/20/17 Albuterol Sulfate 90 Mcg/Act (PROAIR HFA 90 MCG/ACT) 8.5 Gm Hfa.aer.ad, 2 PUFF IH Q4-6H PRN for DYSPNEA, INHALER 01/27/17 Multivitamin (MULTIVITAMINS) 1 Each Capsule, 1 EACH PO DAILY, CAPSULE 12/08/16 Discontinued Reported Medications Formoterol Fumarate (PERFOROMIST) 20 Mcg/2 Ml Vial.neb, 2 ML IH BID 08/18/18 Budesonide (PULMICORT) 0.5 Mg/2 Ml Ampul.neb, 2 ML IH BID, ML 08/18/18 Allergies: Coded Allergies: aripiprazole (Verified Allergy, Intermediate, RASH, 08/10/18) escitalopram (Verified Allergy, Intermediate, RASH, 08/10/18) lithium (Verified Allergy, Intermediate, RASH, 08/10/18) lurasidone (Verified Allergy, Intermediate, 08/10/18) quetiapine (Verified Allergy, Intermediate, DIZZY, 08/10/18) DIzzy varenicline (Verified Allergy, Intermediate, SWELLING, 08/10/18) ciprofloxacin (Verified Allergy, Mild, N/V, 08/10/18) sulfamethoxazole (Verified Allergy, Mild, HIVES, 08/10/18) topiramate (Verified Allergy, Mild, UPSET STOMACH, 08/10/18) Upset stomach trimethoprim (Verified Allergy, Mild, HIVES, 08/10/18) metoprolol (Verified Allergy, Unknown, 08/10/18) dyspnea haloperidol (Verified Adverse Reaction, Severe, DYSTONIC REACTION, 08/10/18) adhesive tape (Verified Adverse Reaction, Mild, RASH, 08/10/18) fluticasone (Verified Adverse Reaction, Mild, THRUSH, 08/10/18) salmeterol (Verified Adverse Reaction, Mild, THRUSH, 08/10/18) Patient History: Breast cancer MGM PGM FH: alcohol abuse FATHER, , Age:82 MOTHER, , Age:66 FH: atrial fibrillation FATHER, , Age:82 FH: breast cancer MGM, Onset:80 [place] PGM FH: hypertension FATHER, , Age:82 MOTHER, , Age:66 BROTHER OR SISTER FH: kidney failure FATHER, , Age:82 BROTHER OR SISTER FH: leukemia BROTHER OR SISTER Hx Smoking: Yes Smoking Status: Current: Every Day Smoker Exposure to Second Hand Smoke?: No When Quit Tobacco?: Vaping Caffeine Intake: Coffee Caffeine/Cups Per Day: 1-2 Hx Alcohol Use: No Hx Substance Use Disorder: No (Pt reports no use ever. ) Social Drug Use: Never Social Drugs: Prescription Drugs Amount Of Social Drug/s Used: TOOK 30 TABLETS OF DULOXETINE RIGGER UP Review of Systems All Systems Reviewed/Normal: Yes, Except as Noted Respiratory: Shortness of Breath, Wheezing Exam Vital Signs Vital Signs Date Time Temp Pulse Resp B/P (MAP) Pulse Ox O2 Delivery O2 Flow Rate FiO2 09/10/18 23:00 98.2 88 28 147/108 (121) 92 Nasal Cannula 3.0 Neuro: No Gross deficits Eyes: PERRLA Cardiovascular: Regular Rate and Rhythm Respiratory: Other (Bilateral expiratory wheezes.) GI: Abd Soft and Non-Tender Extremities: No Edema Integumentary: No Cyanosis Medical Decision Making Data Points Result Diagram: 09/10/18205109/10/182051 Assessment and Plan Problems: (1) COPD exacerbation Assessment & Plan: She did present with increased shortness of breath and wheezing. A chest x-ray performed earlier today did not show findings consistent with pneumonia. She has been started on IV steroids and nebulizers. We have also resumed her usual respiratory inhalers. (2) Hypertension Status: Chronic Assessment & Plan: She is on chronic treatment with hydrochlorothiazide, which is currently on hold. (3) GERD (gastroesophageal reflux disease) Status: Chronic Assessment & Plan: She is on chronic treatment with famotidine and Protonix. (4) RLS (restless legs syndrome) Status: Chronic Assessment & Plan: She is on chronic treatment with Mirapex. (5) CKD (chronic kidney disease) stage 3, GFR 30-59 ml/min Status: Chronic Copies to: OMAR WEBSTER DNP, [employer] ; Venous Thromboembolism Antithrombotics Is Pt On Any Antithrombotics?: No Exam Sepsis Risk: No Definite Risk STEFANI HERNANDEZ DO Sep 10, 2018 23:42
[2018-09-10 23:50] VITALS: BP 135/64
[2018-09-11] MEDS: methylPREDNIS SUCC 125 MG/2ML IVP SCH ×3 (01:09→16:37)
[2018-09-11 02:18] VITALS: BP 137/82
[2018-09-11] MEDS: ALBUTEROL/IPRATROPIUM 3 ML NEB NEB SCH ×4 (05:01→18:24)
[2018-09-11 06:57] VITALS: BP 126/78
[2018-09-11] MEDS: POTASSIUM CHL 10 MEQ TABCR PO SCH (08:35)
[2018-09-11] MEDS: buPROPion SR 150 MG TABCR PO SCH (08:35)
[2018-09-11] MEDS: CHOLECALCIFEROL 1000 UNIT TAB PO SCH (08:35)
[2018-09-11] MEDS: PANTOPRAZOLE SOD 40 MG TABEC PO SCH (08:36)
[2018-09-11] MEDS: CITALOPRAM HYDROBROM 20 MG TAB PO SCH (08:36)
[2018-09-11] MEDS: FAMOTIDINE 20 MG TAB PO SCH (08:36)
[2018-09-11] MEDS: ENOXAPARIN 40 MG/0.4ML SYR SC SCH (08:38)
[2018-09-11] MEDS ORDERED: TIOTROPIUM BROM INH 18 MCG/CAP INH SCH (09:00)
[2018-09-11] MEDS ORDERED: PRAMIPEXOLE DIHYDROCHL 0.25 MG PO SCH (09:00)
[2018-09-11] MEDS ORDERED: BUDESONIDE XX SCH (09:00)
[2018-09-11] MEDS: TIOTROPIUM BROM INH 18 MCG/CAP INH SCH (09:17)
[2018-09-11] MEDS: BUDESO/FORMOT 160/4.5 MCG 6 GM INH SCH ×2 (09:18→18:24)
--- NOTE | 2018-09-11 14:57 | EKG ---
FACILITY: [facility] PATIENT NAME: FLORENCIO CRUZ : [id number] MR: [id number] V: [id number] EXAM DATE: ORDERING PHYSICIAN: ALEXI MCCOY TECHNOLOGIST: MEDINA Test Reason : CP Blood Pressure : / mmHG Vent. Rate : 083 BPM Atrial Rate : 083 BPM P-R Int : 142 ms QRS Dur : 086 ms QT Int : 406 ms P-R-T Axes : 072 049 069 degrees QTc Int : 477 ms Normal sinus rhythm Possible Left atrial enlargement Borderline ECG Confirmed by ALEXI CHENG ([id number]) on 09/11/2018 6:48:27 PM Referred By: Elbert MCCOY Confirmed By:ALEXI CHENG
[2018-09-11 15:19] VITALS: BP 138/79
--- NOTE | 2018-09-11 16:24 | Hospitalist Progress Note ---
Subjective Progress Notes Subjective No new complaints. Still wheezing. Physical Exam Vital Signs Date Time Temp Pulse Resp B/P (MAP) Pulse Ox O2 Delivery O2 Flow Rate FiO2 09/11/18 15:19 98.5 98 20 138/79 (98) 90 Nasal Cannula 4.0 Intake and Output 09/11/18 07:00 # Voids 1 General Appearance: Alert, Awake, Other (Audibly wheezing.) Cardiovascular: Regular Rate and Rhythm Respiratory: Other (Expiratory wheezes throughout.) GI: Soft and Non-Tender Extremities: Warm, Perfused Psych: Appropriate Mood & Affect Result Diagram: 09/10/18205109/10/182051 Assessment and Plan Problems: (1) COPD exacerbation Assessment & Plan: She did present with increased shortness of breath and wheezing. A chest x-ray performed earlier today did not show findings consistent with pneumonia. She has been started on IV steroids and nebulizers. We have also resumed her usual respiratory inhalers. (2) Hypertension Status: Chronic Assessment & Plan: She is on chronic treatment with hydrochlorothiazide, which is currently on hold. (3) GERD (gastroesophageal reflux disease) Status: Chronic Assessment & Plan: She is on chronic treatment with famotidine and Protonix. (4) RLS (restless legs syndrome) Status: Chronic Assessment & Plan: She is on chronic treatment with Mirapex. (5) CKD (chronic kidney disease) stage 3, GFR 30-59 ml/min Status: Chronic Assessment & Plan: Monitor kidney function. Time Spent on Plan of Care: < 30 min Exam Sepsis Risk: No Definite Risk ALEXI MCCOY MD Sep 11, 2018 16:24
[2018-09-11] MEDS: ACETAMINOPHEN 325 MG TAB PO PRN (16:43)
[2018-09-11 21:11] VITALS: BP 137/71
[2018-09-11] MEDS: PRAMIPEXOLE DIHYDROCHL 0.25 MG PO SCH (21:13)
[2018-09-11] MEDS: MELATONIN 3 MG TAB PO SCH (21:13)
[2018-09-12] MEDS: methylPREDNIS SUCC 125 MG/2ML IVP SCH (00:37)
[2018-09-12 00:46] VITALS: BP 121/70
[2018-09-12] MEDS: ALBUTEROL/IPRATROPIUM 3 ML NEB NEB SCH ×4 (05:07→16:34)
[2018-09-12] MEDS: BUDESO/FORMOT 160/4.5 MCG 6 GM INH SCH ×2 (05:23→16:34)
[2018-09-12] MEDS: TIOTROPIUM BROM INH 18 MCG/CAP INH SCH (05:23)
[2018-09-12 05:39] LABS: PLATELET COUNT, AUTOMATED 211 K/uL (150-450)
[2018-09-12 09:26] VITALS: BP 160/81
[2018-09-12] MEDS: FAMOTIDINE 20 MG TAB PO SCH (09:33)
[2018-09-12] MEDS: POTASSIUM CHL 10 MEQ TABCR PO SCH (09:33)
[2018-09-12] MEDS: CHOLECALCIFEROL 1000 UNIT TAB PO SCH (09:33)
[2018-09-12] MEDS: buPROPion SR 150 MG TABCR PO SCH (09:33)
[2018-09-12] MEDS: CITALOPRAM HYDROBROM 20 MG TAB PO SCH (09:34)
[2018-09-12] MEDS: PANTOPRAZOLE SOD 40 MG TABEC PO SCH (09:34)
[2018-09-12] MEDS: ENOXAPARIN 40 MG/0.4ML SYR SC SCH (09:37)
[2018-09-12] MEDS: predniSONE 20 MG TAB PO SCH (10:12)
[2018-09-12] MEDS: HYDROCHLOROTHIAZIDE 25 MG TAB PO SCH (10:25)
[2018-09-12 10:49] VITALS: Ht 160 cm; Wt 124.3 kg
--- NOTE | 2018-09-12 11:11 | Hospitalist Progress Note ---
Subjective Progress Notes Subjective She reports some overall improvement. Still having SOB. Physical Exam Vital Signs Date Time Temp Pulse Resp B/P (MAP) Pulse Ox O2 Delivery O2 Flow Rate FiO2 09/12/18 09:52 90 18 09/12/18 09:43 92 Nasal Cannula 3.0 09/12/18 09:26 98.3 160/81 (107) Intake and Output 09/12/18 07:00 Intake Total 1818 ml Balance 1818 ml Intake Oral 1818 ml # Voids 4 General Appearance: Alert, Awake, No Acute Distress Respiratory: Other (Bilateral exp wheezes. Breathing comfortably. Moving air to bases well.) Result Diagram: 09/12/1851009/12/18510 Assessment and Plan Problems: (1) COPD exacerbation Assessment & Plan: She did present with increased shortness of breath and wheezing. A chest x-ray did not show findings consistent with pneumonia. She had been started on IV steroids and nebulizers. We have also resumed her usual respiratory inhalers. Still with some wheezing, but near baseline O2 requiremen t and breathing comfortably. She will be switched to prednisone. (2) Hypertension Status: Chronic Assessment & Plan: She is on chronic treatment with hydrochlorothiazide, which will be restarted. (3) GERD (gastroesophageal reflux disease) Status: Chronic Assessment & Plan: She is on chronic treatment with famotidine and Protonix. (4) RLS (restless legs syndrome) Status: Chronic Assessment & Plan: She is on chronic treatment with Mirapex. (5) CKD (chronic kidney disease) stage 3, GFR 30-59 ml/min Status: Chronic Assessment & Plan: Baseline creatinine is 1.1-1.3. Monitor kidney function. Exam Sepsis Risk: No Definite Risk TIFFANIE MASSEY MD Sep 12, 2018 11:11
[2018-09-12] MEDS: ACETAMINOPHEN 325 MG TAB PO PRN ×2 (11:43→17:53)
[2018-09-12 15:00] VITALS: BP 154/82
[2018-09-12] MEDS: POLYETHYLENE GLYCOL 17 GM PKT PO SCH (17:03)
[2018-09-12] MEDS: FLUTICASONE PROP 0.05% 16 GM SCH (17:49)
[2018-09-12 19:14] VITALS: BP 142/78
[2018-09-12] MEDS: MELATONIN 3 MG TAB PO SCH (20:56)
[2018-09-12] MEDS: PRAMIPEXOLE DIHYDROCHL 0.25 MG PO SCH (20:56)
[2018-09-12 23:58] VITALS: BP 136/77
[2018-09-13 03:16] VITALS: BP 125/75
[2018-09-13] MEDS: ALBUTEROL/IPRATROPIUM 3 ML NEB NEB SCH ×2 (05:04→09:37)
[2018-09-13] MEDS: TIOTROPIUM BROM INH 18 MCG/CAP INH SCH (05:07)
[2018-09-13] MEDS: BUDESO/FORMOT 160/4.5 MCG 6 GM INH SCH (05:07)
[2018-09-13] MEDS: FLUTICASONE PROP 0.05% 16 GM SCH (05:46)
[2018-09-13 07:12] VITALS: BP 132/76
[2018-09-13] MEDS: ENOXAPARIN 40 MG/0.4ML SYR SC SCH (09:00)
[2018-09-13] MEDS: CITALOPRAM HYDROBROM 20 MG TAB PO SCH (09:15)
[2018-09-13] MEDS: POLYETHYLENE GLYCOL 17 GM PKT PO SCH (09:15)
[2018-09-13] MEDS: CHOLECALCIFEROL 1000 UNIT TAB PO SCH (09:15)
[2018-09-13] MEDS: predniSONE 20 MG TAB PO SCH (09:16)
[2018-09-13] MEDS: FAMOTIDINE 20 MG TAB PO SCH (09:16)
[2018-09-13] MEDS: PANTOPRAZOLE SOD 40 MG TABEC PO SCH (09:16)
[2018-09-13] MEDS: HYDROCHLOROTHIAZIDE 25 MG TAB PO SCH (09:16)
[2018-09-13] MEDS: POTASSIUM CHL 10 MEQ TABCR PO SCH (09:16)
[2018-09-13] MEDS: buPROPion SR 150 MG TABCR PO SCH (09:17)
[2018-09-13] MEDS ORDERED: PRED20TA6 PO (10:09)
--- NOTE | 2018-09-13 10:12 | Hospitalist Depart ---
Discharge Summary Reason for Hosp/Final Diag: (1) COPD exacerbation Hospital Course & Plan: She did present with increased shortness of breath and wheezing. A chest x-ray did not show findings consistent with pneumonia. She was started on IV steroids and nebulizers. We have also resumed her usual respiratory inhalers. Still with some wheezing, but near baseline O2 requirement and breathing comfortably. She was switched to prednisone and reports improvement in symptoms. She will be sent home with extended taper for prednisone. She will follow up with PCP in one week. (2) Hypertension Status: Chronic Hospital Course & Plan: She is on chronic treatment with hydrochlorothiazide, which will be restarted. (3) GERD (gastroesophageal reflux disease) Status: Chronic Hospital Course & Plan: She is on chronic treatment with famotidine and Protonix. (4) RLS (restless legs syndrome) Status: Chronic Hospital Course & Plan: She is on chronic treatment with Mirapex. (5) CKD (chronic kidney disease) stage 3, GFR 30-59 ml/min Status: Chronic Hospital Course & Plan: Baseline creatinine is 1.1-1.3. Monitor kidney function. Departure Latest Vital Signs Vital Signs 09/13/18 09/13/18 09/13/18 07:12 09:34 09:41 Temp 97.5 Pulse 89 Resp 18 B/P (MAP) 132/76 (94) Pulse Ox 90 O2 Delivery Nasal Cannula O2 Flow Rate 3.0 Weight (Pounds): 274 Result Diagram: 09/12/1851009/12/18510 Condition: Improved Discharge: Home, Self Care Discharge Instructions Home Meds Active Scripts Prednisone (PREDNISONE) 20 Mg Tablet, 20 MG PO DIRECTED, #30 TAB Take 3 tab for 2 days then 2.5 for 3 days then 2 for 3 days then 1.5 for 3 days then 1 tab 3 days then 0.5 for 3 day Prov:SANTI RICE 09/13/18 Benzonatate (BENZONATATE) 200 Mg Capsule, 1 CAP PO TID PRN for COUGH, #15 CAP 0 Refills Prov:OMAR WEBSTER DNP, [employer] 09/10/18 Pantoprazole Sodium (PROTONIX) 40 Mg , 40 MG PO QDAY, #90 TAB 3 Refills Prov:SKINNY EMMANUEL MD 09/03/18 Azithromycin (ZITHROMAX) 250 Mg Tablet, 1 TAB PO DIRECTED, #36 TAB 3 Refills Take three times a week on , Wednesdays and Fridays. Prov:SKINNY EMMANUEL MD 07/30/18 Pramipexole Di-Hcl (MIRAPEX) 1 Mg Tablet, 1 MG PO DAILY, #90 TAB 3 Refills Prov:SKINNY EMMANUEL MD 07/30/18 Potassium Chloride (POTASSIUM CHLORIDE) 10 Meq Tab.er.prt, 10 MEQ PO QDAY for edema, #90 TAB 3 Refills Prov:SKINNY EMMANUEL MD 07/09/18 Famotidine (FAMOTIDINE) 20 Mg Tablet, 20 MG PO QDAY, #90 TAB 3 Refills Prov:SKINNY EMMANUEL MD 05/27/18 Hydrochlorothiazide (HYDROCHLOROTHIAZIDE) 25 Mg Tablet, 1 TAB PO QDAY, #30 TAB 11 Refills Prov:SKINNY EMMANUEL MD 05/05/18 Tiotropium [place] (SPIRIVA) 18 Mcg/Cap Inh, 2 PUFF INH DAILY, #1 INH 11 Refills Prov:SKINNY EMMANUEL MD 05/14/17 Reported Medications Budesonide/Formoterol Fumarate (SYMBICORT 160-4.5 MCG INHALER) 10.2 Gm Inh, 10.2 GM INH BID, INH 09/10/18 Citalopram Hydrobromide (CITALOPRAM HBR) 20 Mg Tablet, 20 MG PO QAM, #5 TAB 08/31/18 Melatonin (MELATONIN) 10 Mg Capsule, 10 MG PO QHS, CAPSULE 07/11/18 Bupropion Hcl (WELLBUTRIN SR) 150 Mg Tablet.er, 150 MG PO QDAY, TAB 07/11/18 Hydroxyzine Pamoate (VISTARIL) 25 Mg Capsule, 25 MG PO Q8H PRN for ANXIETY/INSOMNIA, CAPSULE 07/11/18 Oxygen (OXYGEN) Inha, 2 L INH QDAY, L 01/09/18 Cholecalciferol (Vitamin D3) (VITAMIN D3) 1,000 Unit Tablet, 1000 UNIT PO QDAY, TAB 06/20/17 Albuterol Sulfate 90 Mcg/Act (PROAIR HFA 90 MCG/ACT) 8.5 Gm Hfa.aer.ad, 2 PUFF IH Q4-6H PRN for DYSPNEA, INHALER 01/27/17 Multivitamin (MULTIVITAMINS) 1 Each Capsule, 1 EACH PO DAILY, CAPSULE 12/08/16 Discontinued Reported Medications Formoterol Fumarate (PERFOROMIST) 20 Mcg/2 Ml Vial.neb, 2 ML IH BID 08/18/18 Budesonide (PULMICORT) 0.5 Mg/2 Ml Ampul.neb, 2 ML IH BID, ML 08/18/18 Discontinued Scripts Prednisone (PREDNISONE) 20 Mg Tablet, 1 TAB PO BID for 5 Days, #10 TAB 0 Refills Prov:OMAR WEBSTER DNP, [employer] 09/10/18 Diet: Regular Activity: As Tolerated Special Instructions: Take prednisone as prescribed. Follow up with primary care provider in 1 week. Take usual prescription medications as prescribed. Copies to: SKINNY EMMANUEL MD ; Venous Thromboembolism Antithrombotics Is Pt On Any Antithrombotics?: No Problem Qualifiers (1) Hypertension: Hypertension type: essential hypertension Qualified Codes: I10 - Essential (primary) hypertension SANTI RICE [employer] Sep 13, 2018 10:12
== END 2018-09-13 10:09 | disposition home or self-care (01) ==
LOC: ER 20:44 → INTOOBSV 22:37 → MED 22:37
PROVIDERS: ADMIT Family Medicine; ATTEND Family Medicine
DX: J44.1 Chronic obstructive pulmonary disease with (acute) exacerbation (principal)
CPT/HCPCS: 36415; 84484; 85025; 93005; 94640; 94644; 96372; 96374; 99284; A9270; G0378; J1650; J2930; J3535; J7512; J7613; J7620; 82040; 82247; 82310; 82374; 82435; 82565; 82947; 84075; 84132; 84155; 84295; 84450; 84460; 84520

== ENCOUNTER → 2018-09-10 | Outpatient (CLI) | payer MEDICARE, BC ==
[2018-06-30 14:50] VITALS: BMI 46.9
[~2018-09-10] MED LIST changes: +BENZ200C15 PO; +CITA-145 PO; -RANI-366 PO; +RANI-54 PO
--- NOTE | 2018-09-10 10:57 | RADIOLOGY IMAGING REPORT ---
FACILITY: [facility] PATIENT NAME: Natividad Loaiza : 1965 MR: [id number] V: [id number] EXAM DATE: ORDERING PHYSICIAN: OMAR WEBSTER TECHNOLOGIST: Location: [facility] [place] Patient: Ntaividad Loaiza : 1965 Visit/Account:[id number] Date of Sevice: 09/10/2018 Exam type: CHEST PA LAT History: Shortness of breath, cough, wheezing Comparison: August 29, 2018. Findings: The lungs are free of acute effusions, infiltrates or edema. There is no evidence of a pneumothorax or pneumomediastinum. The cardiac silhouette is normal in size. The trachea is in midline. IMPRESSION: 1. No acute cardiopulmonary process is seen Report Dictated By: Cris Verma MD at 09/10/2018 10:51 AM Report E-Signed By: Cris Verma MD at 09/10/2018 10:53 AM WSN:[email or web address]
== END ==
LOC: RAD 09:49
PROVIDERS: ATTEND Nurse Practitioner Primary Care
DX: R06.02 Shortness of breath (principal)
CPT/HCPCS: 71046

== ENCOUNTER 2018-09-21 21:11 | Emergency (ER) | payer MEDICARE, BC ==
[2018-09-12 10:49] VITALS: Wt 122.5 kg
--- NOTE | 2018-09-21 21:14 | ER Report ---
History and Physical Time Seen By : 21:12 HPI/ROS CHIEF COMPLAINT: trouble breathing HISTORY OF PRESENT ILLNESS: This is a 53 year old female with difficult to control COPD. Home from recent hospitalization from 09/10 tp 09/13. Is on her Prednisone taper, down to 30mg from starting dose of 60mg. Has been doing well. Increased wheezing today and chest tight. Has had this happen in the past with reducing the prednisone in the past. Otherwise doing okay. No nausea or vomiting. Eating okay. No problems with bowel or bladder function. Allergies: Coded Allergies: aripiprazole (Verified Allergy, Intermediate, RASH, 08/10/18) escitalopram (Verified Allergy, Intermediate, RASH, 08/10/18) lithium (Verified Allergy, Intermediate, RASH, 08/10/18) lurasidone (Verified Allergy, Intermediate, 08/10/18) quetiapine (Verified Allergy, Intermediate, DIZZY, 08/10/18) DIzzy varenicline (Verified Allergy, Intermediate, SWELLING, 08/10/18) ciprofloxacin (Verified Allergy, Mild, N/V, 08/10/18) sulfamethoxazole (Verified Allergy, Mild, HIVES, 08/10/18) topiramate (Verified Allergy, Mild, UPSET STOMACH, 08/10/18) Upset stomach trimethoprim (Verified Allergy, Mild, HIVES, 08/10/18) metoprolol (Verified Allergy, Unknown, 08/10/18) dyspnea haloperidol (Verified Adverse Reaction, Severe, DYSTONIC REACTION, 08/10/18) adhesive tape (Verified Adverse Reaction, Mild, RASH, 08/10/18) fluticasone (Verified Adverse Reaction, Mild, THRUSH, 08/10/18) salmeterol (Verified Adverse Reaction, Mild, THRUSH, 08/10/18) Home Meds Active Scripts Prednisone (PREDNISONE) 20 Mg Tablet, 20 MG PO DIRECTED, #60 TAB 0 Refills Take 3 tablets once a day for 5 days, then decrease to 2 1/2 tablets once a day for 5 days, then decrease to 2 tablets once a day for 5 days, then decrease to 1 1/2 tablets once a day for 5 days, then decrease to 1 tablet once a day for 5 days, then decrease to 1/2 tablet once a day for 6 days then stop. Prov:GARY RODRIGUEZ MD 09/21/18 Prednisone (PREDNISONE) 20 Mg Tablet, 20 MG PO DIRECTED, #30 TAB Take 3 tab for 2 days then 2.5 for 3 days then 2 for 3 days then 1.5 for 3 days then 1 tab 3 days then 0.5 for 3 day Prov:SANTI RICE Lena GAME DESIGN INSTRUCTOR 09/13/18 Benzonatate (BENZONATATE) 200 Mg Capsule, 1 CAP PO TID PRN for COUGH, #15 CAP 0 Refills Prov:OMAR WEBSTER DNP, GAME DESIGN INSTRUCTOR-BC 09/10/18 Pantoprazole Sodium (PROTONIX) 40 Mg Granpkt.dr, 40 MG PO QDAY, #90 TAB 3 Refills Prov:SKINNY EMMANUEL MD 09/03/18 Azithromycin (ZITHROMAX) 250 Mg Tablet, 1 TAB PO DIRECTED, #36 TAB 3 Refills Take three times a week on , Wednesdays and Fridays. Prov:SKINNY EMMANUEL MD 07/30/18 Pramipexole Di-Hcl (MIRAPEX) 1 Mg Tablet, 1 MG PO DAILY, #90 TAB 3 Refills Prov:SKINNY EMMANUEL MD 07/30/18 Potassium Chloride (POTASSIUM CHLORIDE) 10 Meq Tab.er.prt, 10 MEQ PO QDAY for edema, #90 TAB 3 Refills Prov:SKINNY EMMANUEL MD 07/09/18 Famotidine (FAMOTIDINE) 20 Mg Tablet, 20 MG PO QDAY, #90 TAB 3 Refills Prov:SKINNY EMMANUEL MD 05/27/18 Hydrochlorothiazide (HYDROCHLOROTHIAZIDE) 25 Mg Tablet, 1 TAB PO QDAY, #30 TAB 11 Refills Prov:SKINNY EMMANUEL MD 05/05/18 Tiotropium [place] (SPIRIVA) 18 Mcg/Cap Inh, 2 PUFF INH DAILY, #1 INH 11 Refills Prov:SKINNY EMMANUEL MD 05/14/17 Reported Medications Budesonide/Formoterol Fumarate (SYMBICORT 160-4.5 MCG INHALER) 10.2 Gm Inh, 10.2 GM INH BID, INH 09/10/18 Citalopram Hydrobromide (CITALOPRAM HBR) 20 Mg Tablet, 20 MG PO QAM, #5 TAB 08/31/18 Melatonin (MELATONIN) 10 Mg Capsule, 10 MG PO QHS, CAPSULE 07/11/18 Bupropion Hcl (WELLBUTRIN SR) 150 Mg Tablet.er, 150 MG PO QDAY, TAB 07/11/18 Hydroxyzine Pamoate (VISTARIL) 25 Mg Capsule, 25 MG PO Q8H PRN for ANXIETY/INSOMNIA, CAPSULE 07/11/18 Oxygen (OXYGEN) Inha, 2 L INH QDAY, L 01/09/18 Cholecalciferol (Vitamin D3) (VITAMIN D3) 1,000 Unit Tablet, 1000 UNIT PO QDAY, TAB 06/20/17 Albuterol Sulfate 90 Mcg/Act (PROAIR HFA 90 MCG/ACT) 8.5 Gm Hfa.aer.ad, 2 PUFF IH Q4-6H PRN for DYSPNEA, INHALER 01/27/17 Multivitamin (MULTIVITAMINS) 1 Each Capsule, 1 EACH PO DAILY, CAPSULE 12/08/16 Reviewed Nurses Notes: Yes Hx Smoking: Yes Smoking Status: Current: Every Day Smoker Exposure to Second Hand Smoke?: No Hx Substance Use Disorder: No Hx Alcohol Use: No Constitutional Vital Sign - Last 24 Hours 09/21/18 09/21/18 09/21/18 09/21/18 21:11 21:13 21:15 21:30 Temp 98.8 Pulse ??? 89 Resp 20 B/P (MAP) 149/88 (108) 149/88 146/91 (109) Pulse Ox 94 09/21/18 09/21/18 09/21/18 09/21/18 21:41 22:00 22:00 22:00 Pulse 84 78 Resp 15 18 B/P (MAP) 136/78 (97) Pulse Ox 96 94 O2 Delivery Room Air 09/21/18 09/21/18 09/21/18 09/21/18 22:04 22:20 22:30 22:30 Pulse 79 80 Resp 18 18 B/P (MAP) 137/64 (88) Pulse Ox 95 O2 Delivery Nasal Cannula O2 Flow Rate 3.0 09/21/18 09/21/18 09/21/18 09/21/18 22:30 22:38 22:41 22:46 Pulse 78 77 79 Resp 18 14 B/P (MAP) 128/86 (100) Pulse Ox 99 95 09/21/18 09/21/18 23:00 23:16 Pulse 85 Resp 14 B/P (MAP) 123/74 (90) Pulse Ox 95 Physical Exam General Appearance: The patient is alert. No acute distress. Eyes: Pupils are equal, round. No pallor, injection or icterus. ENT: Mucous membranes are moist. Normal oral mucosa. Posterior oropharynx is normal. Neck: Supple and non tender. Respiratory:Lungs with loud expiratory wheezing, poor air movement, but normal oxygen saturations on her regular 2-3 liters of oxygen. Cardiovascular: Regular rate and rhythm. No murmurs, gallops or rubs. Gastrointestinal: Abdomen is soft. Nondistended. Neurological: Alert and oriented x3. No focal neurologic deficits Skin: Warm and dry. No rashes. DIFFERENTIAL DIAGNOSIS: After history and physical exam, differential diagnosis was considered for COPD exacerbation. Medical Decision Making Data Points Result Diagram: 09/21/18214909/21/182149 Laboratory Hematology Test 09/21/18 21:50 Red Blood Count 4.32 M/uL (4.17-5.56) Mean Corpuscular Volume 90.3 fL (80.0-96.0) Mean Corpuscular Hemoglobin 30.7 pg (26.0-33.0) Mean Corpuscular Hemoglobin Concent 34.0 g/dL (32.0-36.0) Red Cell Distribution Width 13.4 % (11.5-14.5) Mean Platelet Volume 8.6 fL (7.2-11.1) Neutrophils (%) (Auto) 75.7 % (39.4-72.5) Lymphocytes (%) (Auto) 17.3 % (17.6-49.6) Monocytes (%) (Auto) 6.3 % (4.1-12.4) Eosinophils (%) (Auto) 0.4 % (0.4-6.7) Basophils (%) (Auto) 0.3 % (0.3-1.4) Nucleated RBC Relative Count (auto) 0.0 /100WBC Neutrophils # (Auto) 8.8 K/uL (2.0-7.4) Lymphocytes # (Auto) 2.0 K/uL (1.3-3.6) Monocytes # (Auto) 0.7 K/uL (0.3-1.0) Eosinophils # (Auto) 0.0 K/uL (0.0-0.5) Basophils # (Auto) 0.0 K/uL (0.0-0.1) Nucleated RBC Absolute Count (auto) 0.00 K/uL Sodium Level 138 mmol/L (137-145) Potassium Level 3.9 mmol/L (3.5-5.0) Chloride Level 97 mmol/L (98-107) Carbon Dioxide Level 34 mmol/L (22-31) Blood Urea Nitrogen 26 mg/dl (7-18) Creatinine 1.20 mg/dl (0.52-1.04) Glomerular Filtration Rate Calc 46.6 Random Glucose 98 mg/dl (75-110) Calcium Level 9.0 mg/dl (8.4-10.2) Total Bilirubin 0.3 mg/dl (0.2-1.3) Aspartate Amino Transf (AST/SGOT) 13 U/L (0-35) Alanine Aminotransferase (ALT/SGPT) 26 U/L (0-56) Alkaline Phosphatase 93 U/L (0-126) Total Protein 6.3 g/dl (6.3-8.2) Albumin 3.6 g/dl (3.5-5.0) Chemistry Test 09/21/18 21:50 White Blood Count 11.7 k/uL (4.5-11.0) Red Blood Count 4.32 M/uL (4.17-5.56) Hemoglobin 13.3 g/dL (12.0-16.0) Hematocrit 39.0 % (34.0-47.0) Mean Corpuscular Volume 90.3 fL (80.0-96.0) Mean Corpuscular Hemoglobin 30.7 pg (26.0-33.0) Mean Corpuscular Hemoglobin Concent 34.0 g/dL (32.0-36.0) Red Cell Distribution Width 13.4 % (11.5-14.5) Platelet Count 228 K/uL (150-450) Mean Platelet Volume 8.6 fL (7.2-11.1) Neutrophils (%) (Auto) 75.7 % (39.4-72.5) Lymphocytes (%) (Auto) 17.3 % (17.6-49.6) Monocytes (%) (Auto) 6.3 % (4.1-12.4) Eosinophils (%) (Auto) 0.4 % (0.4-6.7) Basophils (%) (Auto) 0.3 % (0.3-1.4) Nucleated RBC Relative Count (auto) 0.0 /100WBC Neutrophils # (Auto) 8.8 K/uL (2.0-7.4) Lymphocytes # (Auto) 2.0 K/uL (1.3-3.6) Monocytes # (Auto) 0.7 K/uL (0.3-1.0) Eosinophils # (Auto) 0.0 K/uL (0.0-0.5) Basophils # (Auto) 0.0 K/uL (0.0-0.1) Nucleated RBC Absolute Count (auto) 0.00 K/uL Glomerular Filtration Rate Calc 46.6 Calcium Level 9.0 mg/dl (8.4-10.2) Total Bilirubin 0.3 mg/dl (0.2-1.3) Aspartate Amino Transf (AST/SGOT) 13 U/L (0-35) Alanine Aminotransferase (ALT/SGPT) 26 U/L (0-56) Alkaline Phosphatase 93 U/L (0-126) Total Protein 6.3 g/dl (6.3-8.2) Albumin 3.6 g/dl (3.5-5.0) EKG/Imaging Imaging EXAMINATION: Chest 2 Views HISTORY: Wheezing. COMPARISON: 09/10/2018. FINDINGS: The lungs are clear. No focal consolidation or pleural fluid. No pneumothorax. Normal cardiomediastinal silhouette, with normal heart size and pulmonary vascularity. Visualized osseous structures are unremarkable. IMPRESSION: No evidence of acute cardiopulmonary disease. Report Dictated By: Rigo Loaiza MD at 09/21/2018 10:34 PM ED Course/Re-evaluation Clinical Indication for ER IV: IV Access ED Course Gave Solu-Medrol and DuoNeb. Quite a bit of improvement. Gave 2 Albuterol nebulizers after this. Much better, still wheezing a little bit, but safe to be discharged home. Will increase Prednisone back to 60mg and slower taper. Decision to Disposition Date: Sep 21, 2018 Decision to Disposition Time: 23:17 Depart Departure Latest Vital Signs Vital Signs Date Time Temp Pulse Resp B/P (MAP) Pulse Ox O2 Delivery O2 Flow Rate FiO2 09/21/18 23:16 85 14 95 09/21/18 23:00 123/74 (90) 6/18/19 22:30 Nasal Cannula 3.0 09/21/18 21:15 98.8 Core Temperature (Celsius): 37.23 Impression: Primary Impression: COPD exacerbation Condition: Improved Disposition: HOME OR SELF-CARE Referrals: SKINNY EMMANUEL MD (PCP) New Scripts Prednisone (PREDNISONE) 20 Mg Tablet 20 MG PO DIRECTED, #60 TAB 0 Refills Take 3 tablets once a day for 5 days, then decrease to 2 1/2 tablets once a day for 5 days, then decrease to 2 tablets once a day for 5 days, then decrease to 1 1/2 tablets once a day for 5 days, then decrease to 1 tablet once a day for 5 days, then decrease to 1/2 tablet once a day for 6 days then stop. Prov: GARY RODRIGUEZ MD 09/21/18 Patient Instructions: COPD (Chronic Obstructive Pulmonary Disease) (ED) Additional Instructions: We are going to have you increase your Prednisone back to 60mg a day and do a slower tapering dose. Keep using your nebulizers every 3 or 4hours as needed for wheezing and shortness of breath. GARY RODRIGUEZ MD Sep 21, 2018 21:14
[2018-09-21] MEDS ORDERED: methylPREDNIS SUCC 125 MG/2ML IVP ONE (21:45)
[2018-09-21] MEDS ORDERED: ALBUTEROL/IPRATROPIUM 3 ML NEB NEB ONE (21:45)
[2018-09-21 22:02] LABS: PLATELET COUNT, AUTOMATED 228 K/uL (150-450)
[2018-09-21] MEDS ORDERED: ALBUTEROL 2.5 MG/3 ML NEB NEB ONE (22:30)
--- NOTE | 2018-09-21 22:41 | RADIOLOGY IMAGING REPORT ---
FACILITY: [facility] [place] PATIENT NAME: Natividad Loaiza : 1965 MR: [id number] V: [id number] EXAM DATE: ORDERING PHYSICIAN: GARY RODRIGUEZ TECHNOLOGIST: Location: Patient: Natividad Loaiza : 1965 Visit/Account:[id number] Date of Sevice: 09/21/2018 EXAMINATION: Chest 2 Views HISTORY: Wheezing. COMPARISON: 09/10/2018. FINDINGS: The lungs are clear. No focal consolidation or pleural fluid. No pneumothorax. Normal cardiomediastinal silhouette, with normal heart size and pulmonary vascularity. Visualized osseous structures are unremarkable. IMPRESSION: No evidence of acute cardiopulmonary disease. Report Dictated By: Rigo Loaiza MD at 09/21/2018 10:34 PM Report E-Signed By: Rigo Loaiza MD at 09/21/2018 10:36 PM [id number]
[2018-09-21 23:00] VITALS: BP 123/74
[2018-09-21] MEDS ORDERED: predniSONE 20 MG TAB PO ONE (23:20)
[2018-09-21] MEDS ORDERED: PRED20TA6 PO (23:22)
[2018-09-23] MEDS ORDERED: IPRA3AMP10 IH (10:35)
== END 2018-09-21 23:31 | disposition home or self-care (01) ==
LOC: ER 21:38
DX: J44.1 Chronic obstructive pulmonary disease with (acute) exacerbation (principal)
CPT/HCPCS: 71046; 85025; 94640; 96374; 99284; J2930; J7512; J7613; J7620; 82040; 82247; 82310; 82374; 82435; 82565; 82947; 84075; 84132; 84155; 84295; 84450; 84460; 84520

== ENCOUNTER 2018-10-03 23:58 | Emergency (ER) | payer MEDICARE, BC ==
[2018-09-12 10:49] VITALS: Wt 122.5 kg
--- NOTE | 2018-10-04 00:05 | ER Report ---
History and Physical Time Seen By MD: 00:02 HPI/ROS CHIEF COMPLAINT: Leg pain HISTORY OF PRESENT ILLNESS: Patient is a 53-year-old female who presents emergency Department with complaint of bilateral lower extremity pain. States that she's noticed bruising to both her legs without any history of trauma. She also states that she's been having numbness both legs. She does have a history of restless leg syndrome but does state that she is taking her medications currently. She denies any chest pain or shortness of breath. She does have a history of COPD and is on chronic oxygen. She denies prior history of DVT or PE. REVIEW OF SYSTEMS: Constitutional: No fever, no chills. Eyes: No discharge. ENT: No sore throat. Cardiovascular: No chest pain, no palpitations. Respiratory: Baseline COPD on chronic oxygen but denies any shortness of breath currently Gastrointestinal: No abdominal pain, no vomiting. Genitourinary: No hematuria. Musculoskeletal: Bilateral lower extremity pain and numbness Skin: No rashes. Neurological: No headache. Allergies: Coded Allergies: aripiprazole (Verified Allergy, Intermediate, RASH, 08/10/18) escitalopram (Verified Allergy, Intermediate, RASH, 08/10/18) lithium (Verified Allergy, Intermediate, RASH, 08/10/18) lurasidone (Verified Allergy, Intermediate, 08/10/18) quetiapine (Verified Allergy, Intermediate, DIZZY, 08/10/18) DIzzy varenicline (Verified Allergy, Intermediate, SWELLING, 08/10/18) ciprofloxacin (Verified Allergy, Mild, N/V, 08/10/18) sulfamethoxazole (Verified Allergy, Mild, HIVES, 08/10/18) topiramate (Verified Allergy, Mild, UPSET STOMACH, 08/10/18) Upset stomach trimethoprim (Verified Allergy, Mild, HIVES, 08/10/18) metoprolol (Verified Allergy, Unknown, 08/10/18) dyspnea haloperidol (Verified Adverse Reaction, Severe, DYSTONIC REACTION, 08/10/18) adhesive tape (Verified Adverse Reaction, Mild, RASH, 08/10/18) fluticasone (Verified Adverse Reaction, Mild, THRUSH, 08/10/18) salmeterol (Verified Adverse Reaction, Mild, THRUSH, 08/10/18) Home Meds Active Scripts Prednisone (PREDNISONE) 20 Mg Tablet, 20 MG PO DIRECTED, #60 TAB 0 Refills Take 3 tablets once a day for 5 days, then decrease to 2 1/2 tablets once a day for 5 days, then decrease to 2 tablets once a day for 5 days, then decrease to 1 1/2 tablets once a day for 5 days, then decrease to 1 tablet once a day for 5 days, then decrease to 1/2 tablet once a day for 6 days then stop. Prov:GARY RODRIGUEZ MD 09/21/18 Pantoprazole Sodium (PROTONIX) 40 Mg Granpkt.dr, 40 MG PO QDAY, #90 TAB 3 Refills Prov:SKINNY EMMANUEL MD 09/03/18 Azithromycin (ZITHROMAX) 250 Mg Tablet, 1 TAB PO DIRECTED, #36 TAB 3 Refills Take three times a week on , Wednesdays and Fridays. Prov:SKINNY EMMANUEL MD 07/30/18 Pramipexole Di-Hcl (MIRAPEX) 1 Mg Tablet, 1 MG PO DAILY, #90 TAB 3 Refills Prov:SKINNY EMMANUEL MD 07/30/18 Potassium Chloride (POTASSIUM CHLORIDE) 10 Meq Tab.er.prt, 10 MEQ PO QDAY for edema, #90 TAB 3 Refills Prov:SKINNY EMMANUEL MD 07/09/18 Famotidine (FAMOTIDINE) 20 Mg Tablet, 20 MG PO QDAY, #90 TAB 3 Refills Prov:SKINNY EMMANUEL MD 05/27/18 Hydrochlorothiazide (HYDROCHLOROTHIAZIDE) 25 Mg Tablet, 1 TAB PO QDAY, #30 TAB 11 Refills Prov:SKINNY EMMANUEL MD 05/05/18 Tiotropium [place] (SPIRIVA) 18 Mcg/Cap Inh, 2 PUFF INH DAILY, #1 INH 11 Refills Prov:SKINNY EMMANUEL MD 05/14/17 Reported Medications Budesonide/Formoterol Fumarate (SYMBICORT 160-4.5 MCG INHALER) 10.2 Gm Inh, 10.2 GM INH BID, INH 09/10/18 Citalopram Hydrobromide (CITALOPRAM HBR) 20 Mg Tablet, 20 MG PO QAM, #5 TAB 08/31/18 Melatonin (MELATONIN) 10 Mg Capsule, 10 MG PO QHS, CAPSULE 07/11/18 Bupropion Hcl (WELLBUTRIN SR) 150 Mg Tablet.er, 150 MG PO QDAY, TAB 07/11/18 Hydroxyzine Pamoate (VISTARIL) 25 Mg Capsule, 25 MG PO Q8H PRN for ANXIETY/I NSOMNIA, CAPSULE 07/11/18 Oxygen (OXYGEN) Inha, 2 L INH QDAY, L 01/09/18 Cholecalciferol (Vitamin D3) (VITAMIN D3) 1,000 Unit Tablet, 1000 UNIT PO QDAY, TAB 06/20/17 Albuterol Sulfate 90 Mcg/Act (PROAIR HFA 90 MCG/ACT) 8.5 Gm Hfa.aer.ad, 2 PUFF IH Q4-6H PRN for DYSPNEA, INHALER 01/27/17 Multivitamin (MULTIVITAMINS) 1 Each Capsule, 1 EACH PO DAILY, CAPSULE 12/08/16 Past Medical/Surgical History Past medical history for hypertension, COPD using supplemental oxygen history of behavioral medicine admissions for suicide attempts. Hypothyroidism, restless leg syndrome Hx Smoking: Yes Smoking Status: Current: Every Day Smoker Exposure to Second Hand Smoke?: No Hx Substance Use Disorder: No Hx Alcohol Use: No Constitutional Vital Sign - Last 24 Hours 10/04/18 10/04/18 10/04/18 10/04/18 00:11 00:15 00:28 00:58 Temp 98.6 Pulse 112 96 90 Resp 20 B/P (MAP) 147/109 (122) 147/109 Pulse Ox 95 97 96 O2 Delivery Nasal Cannula 10/04/18 01:28 Pulse 83 Physical Exam General/Constitutional: Patient is awake, alert, has chronic oxygen but does not appear short of breath. Elevated BMI Head: Normocephalic and atraumatic. Eyes: Conjunctival clear, Pupils are equal and reactive to light. Extraocular muscles are intact and symmetrical. Sclera are clear and anicteric. Ears:External canals are clear. Tympanic membranes are clear with normal landmarks and light reflex. Nares: No rhinorrhea or bleeding. Turbinates are pink and moist. Oropharyngeal: Mucous membranes are moist. There is no pharyngeal erythema or exudate. There are no palatal petechiae. Uvula is midline and symmetrical. Neck: Supple, no adenopathy. Cardiovascular: Heart is regular rate and rhythm without audible murmurs, rubs or gallops. Pulmonary: Lungs are clear to auscultation bilaterally. There are no wheezes, r ales, or rhonchi. Chest rise is symmetrical Abdomen: Soft, nontender, no guarding or peritoneal signs. Extremities: No gross deformities, No peripheral cyanosis. Able to move all 4 extremities. Patient has bruises to bilateral lower extremities no palpable cords noted good pulses distally 2 dorsalis pedis and posterior tibial arteries bilaterally capillary refill was brisk Neuro: Alert and oriented X3, Skin: No rashes, skin is warm dry and well perfused. Medical Decision Making Data Points Result Diagram: 10/04/18 0036 10/04/186 Laboratory Hematology Test 10/04/18 00:36 Red Blood Count 4.21 M/uL (4.17-5.56) Mean Corpuscular Volume 90.5 fL (80.0-96.0) Mean Corpuscular Hemoglobin 31.1 pg (26.0-33.0) Mean Corpuscular Hemoglobin Concent 34.3 g/dL (32.0-36.0) Red Cell Distribution Width 13.6 % (11.5-14.5) Mean Platelet Volume 8.7 fL (7.2-11.1) Neutrophils (%) (Auto) 88.9 % (39.4-72.5) Lymphocytes (%) (Auto) 7.3 % (17.6-49.6) Monocytes (%) (Auto) 3.4 % (4.1-12.4) Eosinophils (%) (Auto) 0.0 % (0.4-6.7) Basophils (%) (Auto) 0.4 % (0.3-1.4) Nucleated RBC Relative Count (auto) 0.0 /100WBC Neutrophils # (Auto) 8.7 K/uL (2.0-7.4) Lymphocytes # (Auto) 0.7 K/uL (1.3-3.6) Monocytes # (Auto) 0.3 K/uL (0.3-1.0) Eosinophils # (Auto) 0.0 K/uL (0.0-0.5) Basophils # (Auto) 0.0 K/uL (0.0-0.1) Nucleated RBC Absolute Count (auto) 0.00 K/uL Sodium Level 137 mmol/L (137-145) Potassium Level 3.8 mmol/L (3.5-5.0) Chloride Level 99 mmol/L (98-107) Carbon Dioxide Level 30 mmol/L (22-31) Blood Urea Nitrogen 28 mg/dl (7-18) Creatinine 1.40 mg/dl (0.52-1.04) Glomerular Filtration Rate Calc 39.0 Random Glucose 164 mg/dl (75-110) Calcium Level 9.7 mg/dl (8.4-10.2) Chemistry Test 10/04/18 00:36 White Blood Count 9.8 k/uL (4.5-11.0) Red Blood Count 4.21 M/uL (4.17-5.56) Hemoglobin 13.1 g/dL (12.0-16.0) Hematocrit 38.1 % (34.0-47.0) Mean Corpuscular Volume 90.5 fL (80.0-96.0) Mean Corpuscular Hemoglobin 31.1 pg (26.0-33.0) Mean Corpuscular Hemoglobin Concent 34.3 g/dL (32.0-36.0) Red Cell Distribution Width 13.6 % (11.5-14.5) Platelet Count 237 K/uL (150-450) Mean Platelet Volume 8.7 fL (7.2-11.1) Neutrophils (%) (Auto) 88.9 % (39.4-72.5) Lymphocytes (%) (Auto) 7.3 % (17.6-49.6) Monocytes (%) (Auto) 3.4 % (4.1-12.4) Eosinophils (%) (Auto) 0.0 % (0.4-6.7) Basophils (%) (Auto) 0.4 % (0.3-1.4) Nucleated RBC Relative Count (auto) 0.0 /100WBC Neutrophils # (Auto) 8.7 K/uL (2.0-7.4) Lymphocytes # (Auto) 0.7 K/uL (1.3-3.6) Monocytes # (Auto) 0.3 K/uL (0.3-1.0) Eosinophils # (Auto) 0.0 K/uL (0.0-0.5) Basophils # (Auto) 0.0 K/uL (0.0-0.1) Nucleated RBC Absolute Count (auto) 0.00 K/uL Glomerular Filtration Rate Calc 39.0 Calcium Level 9.7 mg/dl (8.4-10.2) EKG/Imaging Imaging Negative for DVT bilaterally ED Course/Re-evaluation ED Course 10/04/2018 12:21:57 am plan at this time will be to perform ultrasound bilateral lower extremities were also check electrolytes patient has been on prednisone for some time so neuropathy could be related to elevated blood sugar Decision to Disposition Date: Oct 04, 2018 Decision to Disposition Time: 01:34 Depart Departure Latest Vital Signs Vital Signs Date Time Temp Pulse Resp B/P (MAP) Pulse Ox O2 Delivery O2 Flow Rate FiO2 10/04/18 01:28 83 10/04/18 00:58 96 10/04/18 00:15 98.6 20 147/109 Nasal Cannula Core Temperature (Celsius): 37.23 Impression: Primary Impression: Paresthesia of both lower extremities Condition: Improved Disposition: HOME OR SELF-CARE Referrals: SKINNY EMMANUEL MD (PCP) Additional Instructions: Continue all your outpatient medications as directed. Xanax 0.25mg; take one tablet at bedtime as needed for insomnia, you were dispensed 2 tablets total FRAN FU MD Oct 04, 2018 00:05
[2018-10-04 00:15] VITALS: BP 147/109
[2018-10-04 00:50] LABS: PLATELET COUNT, AUTOMATED 237 K/uL (150-450)
[2018-10-04] MEDS ORDERED: ALPRAZOLAM 0.25 MG PO ONE (01:35)
--- NOTE | 2018-10-04 01:48 | RADIOLOGY IMAGING REPORT ---
FACILITY: [facility] PATIENT NAME: Natividad Loaiza : 1965 MR: [id number] V: [id number] EXAM DATE: ORDERING PHYSICIAN: FRAN FU TECHNOLOGIST: Location: [facility] Patient: Natividad Loaiza : 1965 Visit/Account:[id number] Date of Sevice: 10/04/2018 US VENOGRAM EXTREMITY, BILATERAL HISTORY: Numbness, tingling, and bruising of the bilateral lower extremities. COMPARISON STUDIES: Prior right lower extremity venous ultrasounds 04/21/2018 and 04/17/2018. Left lowe r extremity venous ultrasound 08/24/2014. TECHNIQUE: Grayscale compression, duplex, and color Doppler interrogation of the bilateral lower extr emity deep veins from common femoral vein to proximal calves were performed. The greater saphenous ve ins in the proximal thighs were evaluated using similar technique. FINDINGS: RIGHT LOWER EXTREMITY Common femoral vein: Normal. Deep femoral vein: Normal. Femoral vein: Normal. Popliteal vein: Normal. Visualized deep calf veins: Normal. Greater saphenous vein in the proximal thigh: Normal. Popliteal fossa: Normal. LEFT LOWER EXTREMITY Common femoral vein: Normal. Deep femoral vein: Normal. Femoral vein: Normal. Popliteal vein: Normal. Visualized deep calf veins: Normal. Greater saphenous vein in the proximal thigh: Normal. Popliteal fossa: Normal. IMPRESSION: 1. There is no deep venous thrombosis of either lower extremity. Report Dictated By: Debi Vanegas at 10/04/2018 1:39 AM Report E-Signed By: Debi Vanegas at 10/04/2018 1:42 AM [id number]
[2018-10-06] MEDS ORDERED: HYDR25CA83 PO (10:10)
== END 2018-10-04 01:57 | disposition home or self-care (01) ==
LOC: ER 10-04 00:17
DX: R20.2 Paresthesia of skin (principal)
CPT/HCPCS: 36415; 82310; 82374; 82435; 82565; 82947; 84132; 84295; 84520; 85025; 93970; 99284

== ENCOUNTER 2018-10-12 18:48 | Emergency (ER) | payer MEDICARE, BC ==
[2018-09-12 10:49] VITALS: Wt 120.2 kg
--- NOTE | 2018-10-12 18:58 | ER Report ---
History and Physical Time Seen By MD: 18:56 Hx. of Stated Complaint: BREATHING GOT WORSE YESTERDAY. TREATMENTS ONLY WORK FOR A LITTLE WHILE. CURRENTLY HAS AUDIBLE WEEZING AND SOB HPI/ROS CHIEF COMPLAINT: Shortness breath HISTORY OF PRESENT ILLNESS: 53-year-old female patient presents to emergency room with complaint shortness of breath. Patient states that she is currently on a prednisone taper. She states she was started at 60 mg a day and then has tapered down to 20 mg. She states she is taking 60 mg for 5 days, 50 mg for 5 days, 40 mg for 5 days, 30 mg for 5 days recently has dropped down to 20 mg a day EMS when she started having some shortness of breath. She states she's having increasing wheezing. States she is having work harder to breathe. She denies any fevers, chills, nausea, vomiting or diarrhea. She states that she has not had any fevers. Patient states she's not coughing anything up. She states she's just feels short of breath with any type of activity. She states she does have some abdominal pains back pain, which she attributes to having work harder to breathe. REVIEW OF SYSTEMS: Respiratory: As noted above Cardiovascular: No chest pain, no palpitations. Gastrointestinal: No vomiting, no abdominal pain. Musculoskeletal: No back pain. Allergies: Coded Allergies: aripiprazole (Verified Allergy, Intermediate, RASH, 10/12/18) escitalopram (Verified Allergy, Intermediate, RASH, 10/12/18) lithium (Verified Allergy, Intermediate, RASH, 10/12/18) lurasidone (Verified Allergy, Intermediate, 10/12/18) quetiapine (Verified Allergy, Intermediate, DIZZY, 10/12/18) DIzzy varenicline (Verified Allergy, Intermediate, SWELLING, 10/12/18) ciprofloxacin (Verified Allergy, Mild, N/V, 10/12/18) sulfamethoxazole (Verified Allergy, Mild, HIVES, 10/12/18) topiramate (Verified Allergy, Mild, UPSET STOMACH, 10/12/18) Upset stomach trimethoprim (Verified Allergy, Mild, HIVES, 10/12/18) metoprolol (Verified Allergy, Unknown, 10/12/18) dyspnea haloperidol (Verified Adverse Reaction, Severe, DYSTONIC REACTION, 10/12/18) adhesive tape (Verified Adverse Reaction, Mild, RASH, 10/12/18) fluticasone (Verified Adverse Reaction, Mild, THRUSH, 10/12/18) salmeterol (Verified Adverse Reaction, Mild, THRUSH, 10/12/18) Home Meds Active Scripts Hydroxyzine Pamoate (VISTARIL) 25 Mg Capsule, 25-50 MG PO Q8H PRN for ANXIETY/INSOMNIA, #60 CAPSULE Take 1 in am and afternoon, and 2 at night for itching Prov:SKINNY TREVINO MD 10/06/18 Prednisone (PREDNISONE) 20 Mg Tablet, 20 MG PO DIRECTED, #60 TAB 0 Refills Take 3 tablets once a day for 5 days, then decrease to 2 1/2 tablets once a day for 5 days, then decrease to 2 tablets once a day for 5 days, then decrease to 1 1/2 tablets once a day for 5 days, then decrease to 1 tablet once a day for 5 days, then decrease to 1/2 tablet once a day for 6 days then stop. Prov:GARY RODRIGUEZ MD 09/21/18 Pantoprazole Sodium (PROTONIX) 40 Mg Granpkt.dr, 40 MG PO QDAY, #90 TAB 3 Refills Prov:SKINNY TREVINO MD 09/03/18 Azithromycin (ZITHROMAX) 250 Mg Tablet, 1 TAB PO DIRECTED, #36 TAB 3 Refills Take three times a week on , Wednesdays and Fridays. Prov:SKINNY TREVINO MD 07/30/18 Pramipexole Di-Hcl (MIRAPEX) 1 Mg Tablet, 1 MG PO DAILY, #90 TAB 3 Refills Prov:SKINNY TREVINO MD 07/30/18 Potassium Chloride (POTASSIUM CHLORIDE) 10 Meq Tab.er.prt, 10 MEQ PO QDAY for edema, #90 TAB 3 Refills Prov:SKINNY TREVINO MD 07/09/18 Famotidine (FAMOTIDINE) 20 Mg Tablet, 20 MG PO QDAY, #90 TAB 3 Refills Prov:SKINNY TREVINO MD 05/27/18 Hydrochlorothiazide (HYDROCHLOROTHIAZIDE) 25 Mg Tablet, 1 TAB PO QDAY, #30 TAB 11 Refills Prov:SKINNY TREVINO MD 05/05/18 Tiotropium [place] (SPIRIVA) 18 Mcg/Cap Inh, 2 PUFF INH DAILY, #1 INH 11 Refills Prov:CHOLOSKINNY Dorsey MD 05/14/17 Reported Medications Budesonide/Formoterol Fumarate (SYMBICORT 160-4.5 MCG INHALER) 10.2 Gm Inh, 10.2 GM INH BID, INH 09/10/18 Citalopram Hydrobromide (CITALOPRAM HBR) 20 Mg Tablet, 20 MG PO QAM, #5 TAB 08/31/18 Melatonin (MELATONIN) 10 Mg Capsule, 10 MG PO QHS, CAPSULE 07/11/18 Bupropion Hcl (WELLBUTRIN SR) 150 Mg Tablet.er, 150 MG PO QDAY, TAB 07/11/18 Oxygen (OXYGEN) Inha, 2 L INH QDAY, L 01/09/18 Cholecalciferol (Vitamin D3) (VITAMIN D3) 1,000 Unit Tablet, 1000 UNIT PO QDAY, TAB 06/20/17 Albuterol Sulfate 90 Mcg/Act (PROAIR HFA 90 MCG/ACT) 8.5 Gm Hfa.aer.ad, 2 PUFF IH Q4-6H PRN for DYSPNEA, INHALER 01/27/17 Multivitamin (MULTIVITAMINS) 1 Each Capsule, 1 EACH PO DAILY, CAPSULE 12/08/16 Past Medical/Surgical History Patient has a past medical history of 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 Patient has a surgical history of breast biopsy, tonsillectomy, left shoulder surgery, left hand surgery, left fifth finger amputation, cholecystectomy. Reviewed Nurses Notes: Yes Hx Smoking: Yes Smoking Status: Current: Every Day Smoker Exposure to Second Hand Smoke?: No Hx Substance Use Disorder: No Hx Alcohol Use: No Constitutional Vital Sign - Last 24 Hours 10/12/18 10/12/18 10/12/18 10/12/18 18:52 18:53 19:03 19:03 Temp 98.3 Pulse 93 89 Resp 20 B/P (MAP) 160/84 (109) 160/84 Pulse Ox 95 97 O2 Delivery Nasal Cannula O2 Flow Rate 2.0 10/12/18 10/12/18 10/12/18 10/12/18 19:05 19:05 19:18 19:33 Pulse 84 81 82 Resp 16 Pulse Ox 97 95 94 O2 Delivery Nasal Cannula O2 Flow Rate 2.0 10/12/18 10/12/18 10/12/18 10/12/18 19:48 19:55 20:03 20:08 Pulse 79 78 79 B/P (MAP) 128/79 (95) Pulse Ox 94 95 95 10/12/18 10/12/18 10/12/18 10/12/18 20:13 20:18 20:23 20:28 Pulse 75 79 73 75 Pulse Ox 96 97 95 99 10/12/18 10/12/18 10/12/18 10/12/18 20:32 20:32 20:33 20:38 Pulse 87 79 82 Resp 16 Pulse Ox 96 99 97 O2 Delivery Nasal Cannula O2 Flow Rate 2.0 10/12/18 20:43 Pulse 82 Pulse Ox 94 Physical Exam General Appearance: The patient is alert, has no immediate need for airway protection and no current signs of toxicity. Respiratory: Chest is non tender, lungs are diminished with wheezing throughout to auscultation. Cardiac: regular rate and rhythm Gastrointestinal: Abdomen is soft and non tender, no masses, bowel sounds normal. Musculoskeletal: Neck: Neck is supple and non tender. Extremities have full range of motion and are non tender. Skin: No rashes or lesions. DIFFERENTIAL DIAGNOSIS: After history and physical exam differential diagnosis was considered for shortness of breath including but not limited to pulmonary infectious process, COPD, asthma, pulmonary embolus and congestive heart failure. Medical Decision Making Data Points Result Diagram: 10/12/18191010/12/181910 Laboratory Hematology Test 10/12/18 19:11 Red Blood Count 4.01 M/uL (4.17-5.56) Mean Corpuscular Volume 90.7 fL (80.0-96.0) Mean Corpuscular Hemoglobin 32.0 pg (26.0-33.0) Mean Corpuscular Hemoglobin Concent 35.3 g/dL (32.0-36.0) Red Cell Distribution Width 13.4 % (11.5-14.5) Mean Platelet Volume 8.6 fL (7.2-11.1) Neutrophils (%) (Auto) 81.7 % (39.4-72.5) Lymphocytes (%) (Auto) 12.2 % (17.6-49.6) Monocytes (%) (Auto) 5.2 % (4.1-12.4) Eosinophils (%) (Auto) 0.3 % (0.4-6.7) Basophils (%) (Auto) 0.6 % (0.3-1.4) Nucleated RBC Relative Count (auto) 0.0 /100WBC Neutrophils # (Auto) 7.1 K/uL (2.0-7.4) Lymphocytes # (Auto) 1.1 K/uL (1.3-3.6) Monocytes # (Auto) 0.5 K/uL (0.3-1.0) Eosinophils # (Auto) 0.0 K/uL (0.0-0.5) Basophils # (Auto) 0.0 K/uL (0.0-0.1) Nucleated RBC Absolute Count (auto) 0.00 K/uL Sodium Level 139 mmol/L (137-145) Potassium Level 3.9 mmol/L (3.5-5.0) Chloride Level 98 mmol/L (98-107) Carbon Dioxide Level 33 mmol/L (22-31) Blood Urea Nitrogen 16 mg/dl (7-18) Creatinine 1.10 mg/dl (0.52-1.04) Glomerular Filtration Rate Calc 51.6 Random Glucose 112 mg/dl (75-110) Calcium Level 9.4 mg/dl (8.4-10.2) Total Bilirubin 0.2 mg/dl (0.2-1.3) Aspartate Amino Transf (AST/SGOT) 17 U/L (0-35) Alanine Aminotransferase (ALT/SGPT) 34 U/L (0-56) Alkaline Phosphatase 66 U/L (0-126) Total Protein 6.3 g/dl (6.3-8.2) Albumin 3.7 g/dl (3.5-5.0) Chemistry Test 10/12/18 19:11 White Blood Count 8.7 k/uL (4.5-11.0) Red Blood Count 4.01 M/uL (4.17-5.56) Hemoglobin 12.8 g/dL (12.0-16.0) Hematocrit 36.4 % (34.0-47.0) Mean Corpuscular Volume 90.7 fL (80.0-96.0) Mean Corpuscular Hemoglobin 32.0 pg (26.0-33.0) Mean Corpuscular Hemoglobin Concent 35.3 g/dL (32.0-36.0) Red Cell Distribution Width 13.4 % (11.5-14.5) Platelet Count 218 K/uL (150-450) Mean Platelet Volume 8.6 fL (7.2-11.1) Neutrophils (%) (Auto) 81.7 % (39.4-72.5) Lymphocytes (%) (Auto) 12.2 % (17.6-49.6) Monocytes (%) (Auto) 5.2 % (4.1-12.4) Eosinophils (%) (Auto) 0.3 % (0.4-6.7) Basophils (%) (Auto) 0.6 % (0.3-1.4) Nucleated RBC Relative Count (auto) 0.0 /100WBC Neutrophils # (Auto) 7.1 K/uL (2.0-7.4) Lymphocytes # (Auto) 1.1 K/uL (1.3-3.6) Monocytes # (Auto) 0.5 K/uL (0.3-1.0) Eosinophils # (Auto) 0.0 K/uL (0.0-0.5) Basophils # (Auto) 0.0 K/uL (0.0-0.1) Nucleated RBC Absolute Count (auto) 0.00 K/uL Glomerular Filtration Rate Calc 51.6 Calcium Level 9.4 mg/dl (8.4-10.2) Total Bilirubin 0.2 mg/dl (0.2-1.3) Aspartate Amino Transf (AST/SGOT) 17 U/L (0-35) Alanine Aminotransferase (ALT/SGPT) 34 U/L (0-56) Alkaline Phosphatase 66 U/L (0-126) Total Protein 6.3 g/dl (6.3-8.2) Albumin 3.7 g/dl (3.5-5.0) EKG/Imaging Imaging Exam type: CHEST PA LAT History: Chest pain, respiratory distress Comparison: 09/21/2018. Findings: Both lungs are well-expanded and clear. There is no focal infiltrate, pleural effusion or pneumothorax. Heart size is normal. The osseous structures demonstrate a mild scoliosis. IMPRESSION: 1. No acute cardiopulmonary disease. Report Dictated By: Gilberto Post MD at 10/12/2018 8:21 PM Report E-Signed By: Gilberto Post MD at 10/12/2018 8:22 PM ED Course/Re-evaluation ED Course Patient was admitted and examined, history and physical were obtained. Initial diagnoses were considered. On examination lungs were diminished with wheezing, heart is regular, abdomen soft nontender. An IV was started, a CBC, CMP were done. A chest x-ray was also done. There is no acute cardiopulmonary processes. There is no elevated white count although there was a left shift. I do wonder if the left shift related to her being on steroids. With her getting worse after tapering down to 20 mg a day. I believe we need to increase her steroids. Patient did receive 125 mg of Medrol here. She also received 2 that was her treatments using DuoNeb. Patient did have improvement with her breathing. She states she does feel ready go home. We will go ahead and increase her steroids to 40 mg daily. She is to follow-up with pulmonology next week as scheduled. I discussed this with patient who verbalized understanding and agreement with plan. Decision to Disposition Date: Oct 12, 2018 Decision to Disposition Time: 20:42 Depart Departure Latest Vital Signs Vital Signs Date Time Temp Pulse Resp B/P (MAP) Pulse Ox O2 Delivery O2 Flow Rate FiO2 10/12/18 20:43 82 94 10/12/18 20:32 16 10/12/18 20:32 Nasal Cannula 2.0 10/12/18 19:55 128/79 (95) 10/12/18 18:53 98.3 Core Temperature (Celsius): 37.23 Impression: Primary Impression: COPD exacerbation Condition: Improved Disposition: HOME OR SELF-CARE Referrals: SKINNY TREVINO MD (PCP) Patient Instructions: COPD (Chronic Obstructive Pulmonary Disease) (ED) Additional Instructions: Increase fluid intake. Increase Prednisone to 40mg daily until you see your dryerman/woman. Return to the ER if condition worsens. Follow up with your dryerman/woman as directed. Follow up with Dr. Trevino in the next week. NINA GORDON Oct 12, 2018 18:58
[2018-10-12] MEDS ORDERED: ALBUTEROL/IPRATROPIUM 3 ML NEB NEB ONE ×2 (19:05→20:10)
[2018-10-12] MEDS ORDERED: methylPREDNIS SUCC 125 MG/2ML IVP ONE (19:05)
[2018-10-12 19:20] LABS: PLATELET COUNT, AUTOMATED 218 K/uL (150-450)
[2018-10-12 19:55] VITALS: BP 128/79
--- NOTE | 2018-10-12 20:28 | RADIOLOGY IMAGING REPORT ---
FACILITY: [facility] PATIENT NAME: Natividad Loaiza : 1965 MR: [id number] V: [id number] EXAM DATE: ORDERING PHYSICIAN: NINA GORDON TECHNOLOGIST: Location: [facility] - [place] Patient: Natividad Loaiza : 1965 Visit/Account:[id number] Date of Sevice: 10/12/2018 Exam type: CHEST PA LAT History: Chest pain, respiratory distress Comparison: 09/21/2018. Findings: Both lungs are well-expanded and clear. There is no focal infiltrate, pleural effusion or pneumothora x. Heart size is normal. The osseous structures demonstrate a mild scoliosis. IMPRESSION: 1. No acute cardiopulmonary disease. Report Dictated By: Gilberto Post MD at 10/12/2018 8:21 PM Report E-Signed By: Gilberto Post MD at 10/12/2018 8:22 PM WSN:[id number]
== END 2018-10-12 20:54 | disposition home or self-care (01) ==
LOC: ER 19:12
DX: J44.1 Chronic obstructive pulmonary disease with (acute) exacerbation (principal)
CPT/HCPCS: 71046; 85025; 94640; 96374; 99283; J2930; J7620; 82040; 82247; 82310; 82374; 82435; 82565; 82947; 84075; 84132; 84155; 84295; 84450; 84460; 84520

== ENCOUNTER 2018-10-18 14:11 | Emergency (ER) | payer MEDICARE, BC ==
[2018-09-12 10:49] VITALS: Wt 124.7 kg
--- NOTE | 2018-10-18 14:31 | ER Report ---
History and Physical Time Seen By MD: 14:27 Hx. of Stated Complaint: PATIENT REPORTING INCREASED SOB AND CONFUSION. SHE IS ALSO REPORTING TINGLING IN HER LEFT ARM AND RIGH HAND HPI/ROS CHIEF COMPLAINT: Numbness HISTORY OF PRESENT ILLNESS: Patient is a 53-year-old female currently on a care plan frequent visitor is been to the emergency room 29 times this year alone comes back to the emergency room today with a complaint of numbness in her left upper extremity that she states began 2 hours prior to presentation patient states she went into correction called her primary care advised her to come to the ER her breathing is unchanged she is not short of breath at this time other than her baseline she usually is on supplemental oxygen still smoking she takes 2 L per nasal cannula 24 7. Patient denies any cough fever chills nausea vomiting or diarrhea or additional complaints noted denies headache. No history of trauma REVIEW OF SYSTEMS: Respiratory: No cough, no dyspnea. Cardiovascular: No chest pain, no palpitations. Gastrointestinal: No vomiting, no abdominal pain. Musculoskeletal: No back pain. Remainder of the 14 system rev: Yes Allergies: Coded Allergies: aripiprazole (Verified Allergy, Intermediate, RASH, 10/12/18) escitalopram (Verified Allergy, Intermediate, RASH, 10/12/18) lithium (Verified Allergy, Intermediate, RASH, 10/12/18) lurasidone (Verified Allergy, Intermediate, 10/12/18) quetiapine (Verified Allergy, Intermediate, DIZZY, 10/12/18) DIzzy varenicline (Verified Allergy, Intermediate, SWELLING, 10/12/18) ciprofloxacin (Verified Allergy, Mild, N/V, 10/12/18) sulfamethoxazole (Verified Allergy, Mild, HIVES, 10/12/18) topiramate (Verified Allergy, Mild, UPSET STOMACH, 10/12/18) Upset stomach trimethoprim (Verified Allergy, Mild, HIVES, 10/12/18) metoprolol (Verified Allergy, Unknown, 10/12/18) dyspnea haloperidol (Verified Adverse Reaction, Severe, DYSTONIC REACTION, 10/12/18) adhesive tape (Verified Adverse Reaction, Mild, RASH, 10/12/18) fluticasone (Verified Adverse Reaction, Mild, THRUSH, 10/12/18) salmeterol (Verified Adverse Reaction, Mild, THRUSH, 10/12/18) Home Meds Active Scripts Hydroxyzine Pamoate (VISTARIL) 25 Mg Capsule, 25-50 MG PO Q8H PRN for ANXIETY/INSOMNIA, #60 CAPSULE Take 1 in am and afternoon, and 2 at night for itching Prov:SKINNY EMMANUEL MD 10/06/18 Prednisone (PREDNISONE) 20 Mg Tablet, 20 MG PO DIRECTED, #60 TAB 0 Refills Take 3 tablets once a day for 5 days, then decrease to 2 1/2 tablets once a day for 5 days, then decrease to 2 tablets once a day for 5 days, then decrease to 1 1/2 tablets once a day for 5 days, then decrease to 1 tablet once a day for 5 days, then decrease to 1/2 tablet once a day for 6 days then stop. Prov:GARY RODRIGUEZ MD 09/21/18 Pantoprazole Sodium (PROTONIX) 40 Mg Granpkt.dr, 40 MG PO QDAY, #90 TAB 3 Refills Prov:SKINNY EMMANUEL MD 09/03/18 Azithromycin (ZITHROMAX) 250 Mg Tablet, 1 TAB PO DIRECTED, #36 TAB 3 Refills Take three times a week on , Wednesdays and Fridays. Prov:SKINNY EMMANUEL MD 07/30/18 Pramipexole Di-Hcl (MIRAPEX) 1 Mg Tablet, 1 MG PO DAILY, #90 TAB 3 Refills Prov:SKINNY EMMANUEL MD 07/30/18 Potassium Chloride (POTASSIUM CHLORIDE) 10 Meq Tab.er.prt, 10 MEQ PO QDAY for edema, #90 TAB 3 Refills Prov:SKINNY EMMANUEL MD 07/09/18 Famotidine (FAMOTIDINE) 20 Mg Tablet, 20 MG PO QDAY, #90 TAB 3 Refills Prov:SKINNY EMMANUEL MD 05/27/18 Hydrochlorothiazide (HYDROCHLOROTHIAZIDE) 25 Mg Tablet, 1 TAB PO QDAY, #30 TAB 11 Refills Prov:SKINNY EMMANUEL MD 05/05/18 Tiotropium [place] (SPIRIVA) 18 Mcg/Cap Inh, 2 PUFF INH DAILY, #1 INH 11 Refills Prov:SKINNY EMMANUEL MD 05/14/17 Reported Medications Budesonide/Formoterol Fumarate (SYMBICORT 160-4.5 MCG INHALER) 10.2 Gm Inh, 10.2 GM INH BID, INH 09/10/18 Citalopram Hydrobromide (CITALOPRAM HBR) 20 Mg Tablet, 20 MG PO QAM, #5 TAB 08/31/18 Melatonin (MELATONIN) 10 Mg Capsule, 10 MG PO QHS, CAPSULE 07/11/18 Bupropion Hcl (WELLBUTRIN SR) 150 Mg Tablet.er, 150 MG PO QDAY, TAB 07/11/18 Oxygen (OXYGEN) Inha, 2 L INH QDAY, L 01/09/18 Cholecalciferol (Vitamin D3) (VITAMIN D3) 1,000 Unit Tablet, 1000 UNIT PO QDAY, TAB 06/20/17 Albuterol Sulfate 90 Mcg/Act (PROAIR HFA 90 MCG/ACT) 8.5 Gm Hfa.aer.ad, 2 PUFF IH Q4-6H PRN for DYSPNEA, INHALER 01/27/17 Multivitamin (MULTIVITAMINS) 1 Each Capsule, 1 EACH PO DAILY, CAPSULE 12/08/16 Reviewed Nurses Notes: Yes Old Medical Records Reviewed: Yes Hx Smoking: Yes Smoking Status: Current: Every Day Smoker Exposure to Second Hand Smoke?: No Hx Substance Use Disorder: No Hx Alcohol Use: No Constitutional Vital Sign - Last 24 Hours 10/18/18 14:22 Temp 98.4 Pulse 98 Resp 24 B/P (MAP) 132/96 Pulse Ox 93 O2 Delivery Room Air Physical Exam General Appearance: The patient is alert, has no immediate need for airway protection and no current signs of toxicity. [ ] Eyes: Pupils equal and round no injection. Respiratory: Chest is non tender, lungs are clear to auscultation. Cardiac: regular rate and rhythm [ ] Gastrointestinal: Abdomen is soft and non tender, no masses, bowel sounds normal. Musculoskeletal: Neck: Neck is supple and non tender. Extremities have full range of motion and are non tender. Skin: No rashes or lesions. [Neuro examination GCS of 13 and age 0 full range of motion and neurovascularly intact radial nurse 2 through 15 intact DIFFERENTIAL DIAGNOSIS: After history and physical exam differential diagnosis was considered for TIA versus stroke versus osteoarthritis of the neck versus malingering Medical Decision Making Data Points Result Diagram: 10/18/18 1452 10/18/18 1452 Laboratory Hematology Test 10/18/18 14:52 White Blood Count 11.5 k/uL (4.5-11.0) H Red Blood Count 4.62 M/uL (4.17-5.56) Hemoglobin 14.6 g/dL (12.0-16.0) Hematocrit 42.2 % (34.0-47.0) Mean Corpuscular Volume 91.2 fL (80.0-96.0) Mean Corpuscular Hemoglobin 31.6 pg (26.0-33.0) Mean Corpuscular Hemoglobin Concent 34.6 g/dL (32.0-36.0) Red Cell Distribution Width 13.7 % (11.5-14.5) Platelet Count 239 K/uL (150-450) Mean Platelet Volume 8.8 fL (7.2-11.1) Neutrophils (%) (Auto) 84.0 % (39.4-72.5) H Lymphocytes (%) (Auto) 10.8 % (17.6-49.6) L Monocytes (%) (Auto) 4.7 % (4.1-12.4) Eosinophils (%) (Auto) 0.2 % (0.4-6.7) L Basophils (%) (Auto) 0.3 % (0.3-1.4) Nucleated RBC Relative Count (auto) 0.0 /100WBC Neutrophils # (Auto) 9.7 K/uL (2.0-7.4) H Lymphocytes # (Auto) 1.2 K/uL (1.3-3.6) L Monocytes # (Auto) 0.5 K/uL (0.3-1.0) Eosinophils # (Auto) 0.0 K/uL (0.0-0.5) Basophils # (Auto) 0.0 K/uL (0.0-0.1) Nucleated RBC Absolute Count (auto) 0.00 K/uL Chemistry Test 10/18/18 14:52 Sodium Level 137 mmol/L (137-145) Potassium Level 4.4 mmol/L (3.5-5.0) Chloride Level 96 mmol/L (98-107) Carbon Dioxide Level 33 mmol/L (22-31) Blood Urea Nitrogen 21 mg/dl (7-18) Creatinine 1.20 mg/dl (0.52-1.04) Glomerular Filtration Rate Calc 46.6 Random Glucose 122 mg/dl (75-110) Calcium Level 9.5 mg/dl (8.4-10.2) Total Bilirubin 0.5 mg/dl (0.2-1.3) Aspartate Amino Transf (AST/SGOT) 17 U/L (0-35) Alanine Aminotransferase (ALT/SGPT) 29 U/L (0-56) Alkaline Phosphatase 73 U/L (0-126) Troponin I < 0.012 ng/ml B-Type Natriuretic Peptide 7 pg/ml (0-100) Total Protein 6.7 g/dl (6.3-8.2) Albumin 4.0 g/dl (3.5-5.0) Coagulation Test 10/18/18 14:52 D-Dimer Quantitative (PE/DVT) < 0.27 ug/ml (0-0.50) ED Course/Re-evaluation ED Course ED clinical course 53-year-old female frequent visitor to the emergency department returns for numbness and and of the left upper extremity head CT is negative labs are normal chest x-ray is normal her breathing is at her baseline with discharge diagnosis numbness Decision to Disposition Date: Oct 18, 2018 Decision to Disposition Time: 15:56 Depart Departure Latest Vital Signs Vital Signs Date Time Temp Pulse Resp B/P (MAP) Pulse Ox O2 Delivery O2 Flow Rate FiO2 10/18/18 14:22 98.4 98 24 132/96 93 Room Air Core Temperature (Celsius): 37.23 Impression: Primary Impression: Numbness Condition: Condition Unchanged Disposition: HOME OR SELF-CARE Referrals: SKINNY EMMANUEL MD (PCP) 5 Days Departure Forms: ER Transition Record, Medications Reconciliation, Patient Portal Information Patient Instructions: Transient Ischemic Attack (DC) NATHALY CUELLAR MD Oct 18, 2018 14:31
--- NOTE | 2018-10-18 14:36 | EKG ---
FACILITY: [facility] PATIENT NAME: FLORENCIO CRUZ : [id number] MR: [id number] V: [id number] EXAM DATE: ORDERING PHYSICIAN: NATHALY CUELLAR TECHNOLOGIST: ISATU Erickson Reason : SOB Blood Pressure : / mmHG Vent. Rate : 092 BPM Atrial Rate : 092 BPM P-R Int : 122 ms QRS Dur : 072 ms QT Int : 354 ms P-R-T Axes : 069 055 072 degrees QTc Int : 437 ms Normal sinus rhythm Normal ECG When compared with ECG of 11-SEP-2018 11:47, No significant change was found Confirmed by Lele Cox ([id number]) on 10/18/2018 9:27:00 PM Referred By: ALISA Confirmed By:Lele Myers
[2018-10-18 15:23] LABS: PLATELET COUNT, AUTOMATED 239 K/uL (150-450)
--- NOTE | 2018-10-18 15:38 | RADIOLOGY IMAGING REPORT ---
FACILITY: [facility] - [place] PATIENT NAME: Natividad Loaiza : 1965 MR: [id number] V: [id number] EXAM DATE: ORDERING PHYSICIAN: NATHALY CUELLAR TECHNOLOGIST: Location: [facility] [place] Patient: Natividad Loaiza : 1965 Visit/Account:[id number] Date of Sevice: 10/18/2018 EXAMINATION: Chest 2 Views HISTORY: Shortness of breath COMPARISON: 10/12/2018.. FINDINGS: The lungs are clear. No focal consolidation or pleural fluid. No pneumothorax. Normal cardiomediastinal silhouette, with normal heart size and pulmonary vascularity. Visualized osseous structures are unremarkable. IMPRESSION: No evidence of acute cardiopulmonary disease. Report Dictated By: Rigo Loaiza MD at 10/18/2018 3:29 PM Report E-Signed By: Rigo Loaiza MD at 10/18/2018 3:31 PM WSN:[id number]
--- NOTE | 2018-10-18 15:54 | RADIOLOGY IMAGING REPORT ---
[place] [facility] [place]: Natividad Loaiza : 1965 MR: [id number] V: [id number] EXAM DATE: ORDERING PHYSICIAN: NATHALY CUELLAR TECHNOLOGIST: Location: [facility] Patient: Natividad Loaiza : 1965 Visit/Account:[id number] Date of Sevice: 10/18/2018 EXAMINATION: CT head without IV contrast HISTORY: Left-sided numbness. TECHNIQUE: Axial CT images of the head were obtained from the vertex to the skull base without IV c ontrast, with coronal and sagittal 2D reconstructed images. One of the following dose optimization techniques was utilized in the performance of this exam: Autom ated exposure control; adjustment of the mA and/or kV according to the patient's size; or use of an i terative reconstruction technique. Specific details can be referenced in the facility's radiology C T exam operational policy. COMPARISON: 08/24/2018. FINDINGS: Mild generalized parenchymal volume loss. There is stable patchy low attenuation in the periventricul ar and subcortical white matter bilaterally. No CT evidence of intracranial hemorrhage, mass lesion, or acute infarct. No midline shift or extra-a xial fluid collections. Castro-white differentiation is maintained. The calvarium is intact. The partially visualized paranasal sinuses and mastoid air cells are unopaci fied. IMPRESSION: 1. No CT evidence of acute intracranial pathology. 2. Mild parenchymal atrophy. 3. Stable patchy nonspecific white matter changes, possibly related to early chronic small vessel isc hemic change. Report Dictated By: Rigo Loaiza MD at 10/18/2018 3:37 PM Report E-Signed By: Rigo Loaiza MD at 10/18/2018 3:46 PM WSN:[id number]
[2018-10-18 15:56] VITALS: BP 133/91
== END 2018-10-18 16:15 | disposition home or self-care (01) ==
LOC: ER 14:26
DX: R20.0 Anesthesia of skin (principal)
CPT/HCPCS: 70450; 71046; 82040; 82247; 82310; 82374; 82435; 82565; 82947; 83880; 84075; 84132; 84155; 84295; 84450; 84460; 84484; 84520; 85025; 85379; 93005; 99284

== ENCOUNTER → 2018-11-03 | Outpatient (CLI) | payer MEDICARE, BC ==
[2018-09-12 10:49] VITALS: BMI 48.5
[2018-11-03 09:11] LABS: PLATELET COUNT, AUTOMATED 235 K/uL (150-450)
== END ==
LOC: LAB 08:40
PROVIDERS: ATTEND Nurse Practitioner Psychiatric/Mental Health
DX: R53.83 Other fatigue (principal); Z79.899 Other long term (current) drug therapy
CPT/HCPCS: 36415; 82040; 82247; 82306; 82310; 82374; 82435; 82465; 82565; 82947; 83718; 84075; 84132; 84155; 84295; 84439; 84443; 84450; 84460; 84478; 84481; 84520; 85025

== ENCOUNTER 2018-11-09 19:59 | Inpatient (IN) | payer MEDICARE, BC ==
[~2018-11-09] VITALS: Ht 160 cm; Wt 120.2 kg
[2018-11-09] MEDS ORDERED: ALBUTEROL/IPRATROPIUM 3 ML NEB NEB ONE ×2 (20:10→20:20)
[2018-11-09] MEDS ORDERED: predniSONE 20 MG TAB PO ONE (20:15)
--- NOTE | 2018-11-09 20:17 | ER Report ---
History and Physical Time Seen By MD: 20:00 Hx. of Stated Complaint: cough since yesterday. getting worse today. difficult to clear secretions, white foamy/bubbly. audible wheezing and congestion HPI/ROS CHIEF COMPLAINT: Difficulty breathing HISTORY OF PRESENT ILLNESS: 53f hx copd, on azithromycin 3x weekly, last stero ids 3 wks ago, presents with 1 d hx dyspnea, cough productive of clear sputum, that feels like copd exacerbation to her. No chest pain/pressure. No fever, did develop chills this afternoon. Pt states that she has been using home albuterol neb without relief. No recent travel, no leg swelling/pain, or hx of VTE. Last wknd notes that she had sick contacts of children with uri symptoms. REVIEW OF SYSTEMS: Constitutional: above Eyes: No discharge. ENT: No sore throat. Cardiovascular: No chest pain, no palpitations. Respiratory: above Gastrointestinal: No abdominal pain, no vomiting. Genitourinary: no dysuria Musculoskeletal: No back pain. Skin: No rashes. Neurological: No headache. Remainder of the 14 system rev: Yes Allergies: Coded Allergies: aripiprazole (Verified Allergy, Intermediate, RASH, 11/09/18) escitalopram (Verified Allergy, Intermediate, RASH, 11/09/18) lithium (Verified Allergy, Intermediate, RASH, 11/09/18) lurasidone (Verified Allergy, Intermediate, 11/09/18) quetiapine (Verified Allergy, Intermediate, DIZZY, 11/09/18) DIzzy varenicline (Verified Allergy, Intermediate, SWELLING, 11/09/18) ciprofloxacin (Verified Allergy, Mild, N/V, 11/09/18) sulfamethoxazole (Verified Allergy, Mild, HIVES, 11/09/18) topiramate (Verified Allergy, Mild, UPSET STOMACH, 11/09/18) Upset stomach trimethoprim (Verified Allergy, Mild, HIVES, 11/09/18) metoprolol (Verified Allergy, Unknown, 11/09/18) dyspnea haloperidol (Verified Adverse Reaction, Severe, DYSTONIC REACTION, 11/09/18) adhesive tape (Verified Adverse Reaction, Mild, RASH, 11/09/18) fluticasone (Verified Adverse Reaction, Mild, THRUSH, 11/09/18) salmeterol (Verified Adverse Reaction, Mild, THRUSH, 11/09/18) Home Meds Active Scripts Hydroxyzine Pamoate (VISTARIL) 25 Mg Capsule, 25-50 MG PO Q8H PRN for ANXIETY/INSOMNIA, #60 CAPSULE Take 1 in am and afternoon, and 2 at night for itching Prov:SKINNY EMMANUEL MD 10/06/18 Pantoprazole Sodium (PROTONIX) 40 Mg Granpkt.dr, 40 MG PO QDAY, #90 TAB 3 Refills Prov:SKINNY EMMANUEL MD 09/03/18 Azithromycin (ZITHROMAX) 250 Mg Tablet, 1 TAB PO DIRECTED, #36 TAB 3 Refills Take three times a week on , Wednesdays and Fridays. Prov:SKINNY EMMANUEL MD 07/30/18 Pramipexole Di-Hcl (MIRAPEX) 1 Mg Tablet, 1 MG PO DAILY, #90 TAB 3 Refills Prov:SKINNY EMMANUEL MD 07/30/18 Potassium Chloride (POTASSIUM CHLORIDE) 10 Meq Tab.er.prt, 10 MEQ PO QDAY for edema, #90 TAB 3 Refills Prov:SKINNY EMMANUEL MD 07/09/18 Famotidine (FAMOTIDINE) 20 Mg Tablet, 20 MG PO QDAY, #90 TAB 3 Refills Prov:SKINNY EMMANUEL MD 05/27/18 Hydrochlorothiazide (HYDROCHLOROTHIAZIDE) 25 Mg Tablet, 1 TAB PO QDAY, #30 TAB 11 Refills Prov:SKINNY EMMANUEL MD 05/05/18 Tiotropium [place] (SPIRIVA) 18 Mcg/Cap Inh, 2 PUFF INH DAILY, #1 INH 11 Refills Prov:SKINNY EMMANUEL MD 05/14/17 Reported Medications Budesonide/Formoterol Fumarate (SYMBICORT 160-4.5 MCG INHALER) 10.2 Gm Inh, 10.2 GM INH BID, INH 09/10/18 Citalopram Hydrobromide (CITALOPRAM HBR) 20 Mg Tablet, 20 MG PO QAM, #5 TAB 08/31/18 Melatonin (MELATONIN) 10 Mg Capsule, 10 MG PO QHS, CAPSULE 07/11/18 Bupropion Hcl (WELLBUTRIN SR) 150 Mg Tablet.er, 150 MG PO QDAY, TAB 07/11/18 Oxygen (OXYGEN) Inha, 2 L INH QDAY, L 01/09/18 Cholecalciferol (Vitamin D3) (VITAMIN D3) 1,000 Unit Tablet, 1000 UNIT PO QDAY, TAB 06/20/17 Albuterol Sulfate 90 Mcg/Act (PROAIR HFA 90 MCG/ACT) 8.5 Gm Hfa.aer.ad, 2 PUFF IH Q4-6H PRN for DYSPNEA, INHALER 01/27/17 Multivitamin (MULTIVITAMINS) 1 Each Capsule, 1 EACH PO DAILY, CAPSULE 12/08/16 Discontinued Scripts Prednisone (PREDNISONE) 20 Mg Tablet, 20 MG PO DIRECTED, #60 TAB 0 Refills Take 3 tablets once a day for 5 days, then decrease to 2 1/2 tablets once a day for 5 days, then decrease to 2 tablets once a day for 5 days, then decrease to 1 1/2 tablets once a day for 5 days, then decrease to 1 tablet once a day for 5 days, then decrease to 1/2 tablet once a day for 6 days then stop. Prov:GARY RODRIGUEZ MD 09/21/18 Reviewed Nurses Notes: Yes Old Medical Records Reviewed: Yes Hx Smoking: Yes Smoking Status: Current: Every Day Smoker Exposure to Second Hand Smoke?: No Hx Substance Use Disorder: No Hx Alcohol Use: No Constitutional Vital Sign - Last 24 Hours 11/09/18 11/09/18 11/09/18 11/09/18 19:59 20:03 20:10 20:10 Temp 97.9 Pulse ??? 85 72 Resp 18 16 B/P (MAP) 133/118 (123) 133/118 Pulse Ox 93 96 O2 Delivery Nasal Cannula Nasal Cannula O2 Flow Rate 3.0 11/09/18 11/09/18 11/09/18 11/09/18 20:14 20:16 20:19 20:19 Pulse 85 73 74 Resp 20 16 18 Pulse Ox 94 100 O2 Delivery Nasal Cannula O2 Flow Rate 3.0 11/09/18 11/09/18 11/09/18 11/09/18 20:28 20:29 20:30 20:44 Pulse 75 76 77 Resp 18 18 15 B/P (MAP) 125/68 (87) Pulse Ox 92 94 11/09/18 11/09/18 11/09/18 11/09/18 20:59 21:00 21:05 21:14 Pulse 72 77 Resp 20 18 B/P (MAP) 129/79 (96) Pulse Ox 94 94 O2 Flow Rate 3.0 11/09/18 11/09/18 11/09/18 11/09/18 21:29 21:30 21:44 21:49 Pulse 71 76 72 Resp 18 18 16 B/P (MAP) 131/76 (94) Pulse Ox 95 94 97 11/09/18 11/09/18 11/09/18 11/09/18 21:52 22:00 22:04 22:19 Pulse 73 77 78 Resp 18 18 24 B/P (MAP) 125/89 (101) Pulse Ox 95 95 11/09/18 11/09/18 11/09/18 11/09/18 22:30 22:34 22:49 22:49 Pulse 89 90 87 Resp 32 18 18 B/P (MAP) 130/54 (79) Pulse Ox 96 91 11/09/18 11/09/18 11/09/18 11/09/18 22:54 23:00 23:09 23:24 Pulse 84 88 84 Resp 22 9 10 B/P (MAP) 131/71 (91) Pulse Ox 91 91 92 11/09/18 11/09/18 11/09/18 11/10/18 23:30 23:39 23:54 00:00 Pulse ??? 88 Resp 38 19 B/P (MAP) 128/67 (87) 123/91 (102) Pulse Ox 91 92 11/10/18 11/10/18 11/10/18 11/10/18 00:05 00:20 00:30 00:35 Pulse 86 86 91 Resp 14 17 19 B/P (MAP) 126/73 (90) Pulse Ox 93 94 95 11/10/18 11/10/18 11/10/18 11/10/18 00:50 01:00 01:05 01:10 Pulse 86 84 78 Resp 17 19 20 B/P (MAP) 120/68 (85) Pulse Ox 94 93 95 Intake and Output 11/09/18 11/09/18 11/10/18 15:03 23:03 07:03 Intake Total 350 ml Balance 350 ml Physical Exam General Appearance: The patient is alert, has no immediate need for airway protection and no signs of toxicity. Eyes: Pupils equal and round no pallor or injection. ENT, Mouth: Mucous membranes are moist. Respiratory: no retractions, bilateral expiratory wheezes throughout Cardiovascular: Regular rate and rhythm. no m/r/g Gastrointestinal: abdomen is soft and tender, no masses Neurological: alert, oriented, no gross focal deficit Skin: Warm and dry, no rashes. Musculoskeletal: Extremities are nontender, nonswollen and have full range of motion. DIFFERENTIAL DIAGNOSIS: After history and physical exam differential diagnosis was considered for copd exacerbation, pneumonia, pe, acs, or other emergent cause of presentation Medical Decision Making Data Points Result Diagram: 11/09/18 2306 11/09/18 2306 Laboratory Hematology Test 11/09/18 23:06 White Blood Count 6.6 k/uL (4.5-11.0) Red Blood Count 4.15 M/uL (4.17-5.56) L Hemoglobin 12.9 g/dL (12.0-16.0) Hematocrit 37.2 % (34.0-47.0) Mean Corpuscular Volume 89.6 fL (80.0-96.0) Mean Corpuscular Hemoglobin 31.0 pg (26.0-33.0) Mean Corpuscular Hemoglobin Concent 34.6 g/dL (32.0-36.0) Red Cell Distribution Width 12.8 % (11.5-14.5) Platelet Count 192 K/uL (150-450) Mean Platelet Volume 9.5 fL (7.2-11.1) Neutrophils (%) (Auto) 73.4 % (39.4-72.5) H Lymphocytes (%) (Auto) 18.7 % (17.6-49.6) Monocytes (%) (Auto) 6.8 % (4.1-12.4) Eosinophils (%) (Auto) 0.6 % (0.4-6.7) Basophils (%) (Auto) 0.5 % (0.3-1.4) Nucleated RBC Relative Count (auto) 0.0 /100WBC Neutrophils # (Auto) 4.9 K/uL (2.0-7.4) Lymphocytes # (Auto) 1.2 K/uL (1.3-3.6) L Monocytes # (Auto) 0.5 K/uL (0.3-1.0) Eosinophils # (Auto) 0.0 K/uL (0.0-0.5) Basophils # (Auto) 0.0 K/uL (0.0-0.1) Nucleated RBC Absolute Count (auto) 0.00 K/uL Chemistry Test 11/09/18 23:06 Sodium Level 139 mmol/L (137-145) Potassium Level 3.2 mmol/L (3.5-5.0) Chloride Level 93 mmol/L (98-107) Carbon Dioxide Level 35 mmol/L (22-31) Blood Urea Nitrogen 26 mg/dl (7-18) Creatinine 1.30 mg/dl (0.52-1.04) Glomerular Filtration Rate Calc 42.5 Random Glucose 162 mg/dl (75-110) Calcium Level 10.2 mg/dl (8.4-10.2) Magnesium Level 1.6 mg/dl (1.7-2.2) Total Bilirubin 0.2 mg/dl (0.2-1.3) Aspartate Amino Transf (AST/SGOT) 19 U/L (0-35) Alanine Aminotransferase (ALT/SGPT) 30 U/L (0-56) Alkaline Phosphatase 89 U/L (0-126) Troponin I < 0.012 ng/ml Total Protein 6.8 g/dl (6.3-8.2) Albumin 3.8 g/dl (3.5-5.0) EKG/Imaging EKG Interpretation 12 lead EKG: Rhythm: normal sinus rhythm [place]: normal QRS: normal ST segments: twave flat avL q wave V1-3 NSR with q waves, similar to prior Monitor Interpretation: Normal Sinus Rhythm ED Course/Re-evaluation ED Course 53 y/o f presents with sgs/symptoms c/w copd exacerbation. ED eval does not reveal other complicating features. While she does not have retractions or increasing respiratory distress, she does have persistent wheezing throughout that does not improve with nebulizer treatments, continuous nebs, or monitoring. After reassessment, recommend admission for observation, frequent nebs, reassessment. Decision to Disposition Date: Nov 10, 2018 Decision to Disposition Time: 01:00 Depart Departure Latest Vital Signs Vital Signs Date Time Temp Pulse Resp B/P (MAP) Pulse Ox O2 Delivery O2 Flow Rate FiO2 11/10/18 01:10 78 20 95 11/10/18 01:00 120/68 (85) 11/09/18 21:05 3.0 11/09/18 20:19 Nasal Cannula 11/09/18 20:03 97.9 Core Temperature (Celsius): 37.23 Impression: Primary Impression: COPD exacerbation Condition: Condition Unchanged Disposition: Admitted from ER Referrals: SKINNY EMMANUEL MD (PCP) FRAN VALADEZ MD Nov 09, 2018 20:17
[2018-11-09] MEDS ORDERED: IBUPROFEN 600 MG TAB PO ONE (20:45)
[2018-11-09] MEDS ORDERED: ACETAMINOPHEN 325 MG TAB PO ONE (20:45)
--- NOTE | 2018-11-09 20:50 | EKG ---
FACILITY: [facility] - [place] PATIENT NAME: FLORENCIO CRUZ : [id number] MR: [id number] V: [id number] EXAM DATE: ORDERING PHYSICIAN: FRAN VALADEZ TECHNOLOGIST: ANITA Test Reason : SOB Blood Pressure : / mmHG Vent. Rate : 070 BPM Atrial Rate : 070 BPM P-R Int : 148 ms QRS Dur : 082 ms QT Int : 400 ms P-R-T Axes : 051 042 062 degrees QTc Int : 432 ms Normal sinus rhythm Septal infarct , age undetermined T wave abnormality, consider anterior ischemia vs normal variant When compared with ECG of 18-OCT-2018 14:15, Septal infarct is now present vs lead placement T wave inversion now evident in Anterior leads Confirmed by TIFFANIE MASSEY ([id number]) on 11/10/2018 1:21:15 AM Referred By: Confirmed By:TIFFANIE MASSEY
--- NOTE | 2018-11-09 21:05 | RADIOLOGY IMAGING REPORT ---
FACILITY: [facility] - [place] PATIENT NAME: Natividad Loaiza : 1965 MR: [id number] V: [id number] EXAM DATE: ORDERING PHYSICIAN: FRAN VALADEZ TECHNOLOGIST: Location: [facility] - [place] Patient: Natividad Loaiza : 1965 Visit/Account:[id number] Date of Sevice: 11/09/2018 Examination: CHEST SINGLE AP Comparison: 10/18/2018 and earlier. History: Dyspnea. Findings: Cardiac and hilar contour size is normal. No consolidation, nodule, or evidence of acute pe ribronchial inflammation. No pneumothorax, edema, or effusion. Osseous structures are intact. IMPRESSION: No findings of acute cardiopulmonary disease. Report Dictated By: Venancio House MD at 11/09/2018 8:56 PM Report E-Signed By: Venancio House MD at 11/09/2018 8:57 PM WSN:[id number]
[2018-11-09] MEDS ORDERED: ALBUTEROL 2.5 MG/3 ML NEB NEB ONE (21:35)
[2018-11-09] MEDS ORDERED: NS(*) 0.9% 1000 ML BAG 1,000 ML IV ONE (23:05)
[2018-11-09] MEDS ORDERED: AZITHROMYCIN(*) 500 MG 500 MG in NS(*) 0.9% 250 ML BAG 250 ML IVPB ONE (23:05)
[2018-11-09] MEDS ORDERED: cefTRIAXone(*) 1 GM VIAL 1 GM in NS(*) 0.9% 100 ML MINI-BAG 100 ML IVPB ONE (23:05)
[2018-11-09 23:20] LABS: PLATELET COUNT, AUTOMATED 192 K/uL (150-450)
[2018-11-10] MEDS ORDERED: INFLUENZA VIRUS VAC 0.5ML SYR IM ONLY ONE (01:05)
[2018-11-10] MEDS ORDERED: ALBUTEROL 2.5 MG/3 ML NEB NEB PRN (01:05)
[2018-11-10] MEDS ORDERED: MAGNESIUM SUL* 2 GM/50 ML IVPB 50 ML IVPB ONE (01:35)
--- NOTE | 2018-11-10 01:38 | History & Physical ---
History of Present Illness History of Present Illness 52yo female with COPD and is a current smoker who came to the ER for worsening SOB. She started feeling short of breath the evening before admission. She was last on prednisone about a month ago. She denies fevers. Her chronic white sputum has become frothy in the last 24 hours. No reported chest pain, LE e gerald, nausea, vomiting or diarrhea. History Problems: (1) Hypertension Status: Chronic (2) Obstructive sleep apnea Status: Chronic (3) Hypothyroidism Status: Chronic (4) Morbid obesity Status: Chronic (5) RLS (restless legs syndrome) Status: Chronic (6) CKD (chronic kidney disease) stage 3, GFR 30-59 ml/min Status: Chronic (7) Somatic symptom disorder Status: Chronic (8) Persistent depressive disorder Status: Chronic Home Meds Active Scripts Hydroxyzine Pamoate (VISTARIL) 25 Mg Capsule, 25-50 MG PO Q8H PRN for ANXIETY/INSOMNIA, #60 CAPSULE Take 1 in am and afternoon, and 2 at night for itching Prov:SKINNY EMMANUEL MD 10/06/18 Pantoprazole Sodium (PROTONIX) 40 Mg Granpkt.dr, 40 MG PO QDAY, #90 TAB 3 Refills Prov:SKINNY EMMANUEL MD 09/03/18 Azithromycin (ZITHROMAX) 250 Mg Tablet, 1 TAB PO DIRECTED, #36 TAB 3 Refills Take three times a week on , Wednesdays and Fridays. Prov:SKINNY EMMANUEL MD 07/30/18 Pramipexole Di-Hcl (MIRAPEX) 1 Mg Tablet, 1 MG PO DAILY, #90 TAB 3 Refills Prov:SKINNY EMMANUEL MD 07/30/18 Potassium Chloride (POTASSIUM CHLORIDE) 10 Meq Tab.er.prt, 10 MEQ PO QDAY for edema, #90 TAB 3 Refills Prov:SKINNY EMMANUEL MD 07/09/18 Famotidine (FAMOTIDINE) 20 Mg Tablet, 20 MG PO QDAY, #90 TAB 3 Refills Prov:SKINNY EMMANUEL MD 05/27/18 Hydrochlorothiazide (HYDROCHLOROTHIAZIDE) 25 Mg Tablet, 1 TAB PO QDAY, #30 TAB 11 Refills Prov:SKINNY EMMANUEL MD 05/05/18 Tiotropium [place] (SPIRIVA) 18 Mcg/Cap Inh, 2 PUFF INH DAILY, #1 INH 11 Refills Prov:SKINNY EMMANUEL MD 05/14/17 Reported Medications Budesonide/Formoterol Fumarate (SYMBICORT 160-4.5 MCG INHALER) 10.2 Gm Inh, 10.2 GM INH BID, INH 09/10/18 Citalopram Hydrobromide (CITALOPRAM HBR) 20 Mg Tablet, 20 MG PO QAM, #5 TAB 08/31/18 Melatonin (MELATONIN) 10 Mg Capsule, 10 MG PO QHS, CAPSULE 07/11/18 Bupropion Hcl (WELLBUTRIN SR) 150 Mg Tablet.er, 150 MG PO QDAY, TAB 07/11/18 Oxygen (OXYGEN) Inha, 2 L INH QDAY, L 01/09/18 Cholecalciferol (Vitamin D3) (VITAMIN D3) 1,000 Unit Tablet, 1000 UNIT PO QDAY, TAB 06/20/17 Albuterol Sulfate 90 Mcg/Act (PROAIR HFA 90 MCG/ACT) 8.5 Gm Hfa.aer.ad, 2 PUFF IH Q4-6H PRN for DYSPNEA, INHALER 01/27/17 Multivitamin (MULTIVITAMINS) 1 Each Capsule, 1 EACH PO DAILY, CAPSULE 12/08/16 Discontinued Scripts Prednisone (PREDNISONE) 20 Mg Tablet, 20 MG PO DIRECTED, #60 TAB 0 Refills Take 3 tablets once a day for 5 days, then decrease to 2 1/2 tablets once a day for 5 days, then decrease to 2 tablets once a day for 5 days, then decrease to 1 1/2 tablets once a day for 5 days, then decrease to 1 tablet once a day for 5 days, then decrease to 1/2 tablet once a day for 6 days then stop. Prov:GARY RODRIGUEZ MD 09/21/18 Allergies: Coded Allergies: aripiprazole (Verified Allergy, Intermediate, RASH, 11/09/18) escitalopram (Verified Allergy, Intermediate, RASH, 11/09/18) lithium (Verified Allergy, Intermediate, RASH, 11/09/18) lurasidone (Verified Allergy, Intermediate, 11/09/18) quetiapine (Verified Allergy, Intermediate, DIZZY, 11/09/18) DIzzy varenicline (Verified Allergy, Intermediate, SWELLING, 11/09/18) ciprofloxacin (Verified Allergy, Mild, N/V, 11/09/18) sulfamethoxazole (Verified Allergy, Mild, HIVES, 11/09/18) topiramate (Verified Allergy, Mild, UPSET STOMACH, 11/09/18) Upset stomach trimethoprim (Verified Allergy, Mild, HIVES, 11/09/18) metoprolol (Verified Allergy, Unknown, 11/09/18) dyspnea haloperidol (Verified Adverse Reaction, Severe, DYSTONIC REACTION, 11/09/18) adhesive tape (Verified Adverse Reaction, Mild, RASH, 11/09/18) fluticasone (Verified Adverse Reaction, Mild, THRUSH, 11/09/18) salmeterol (Verified Adverse Reaction, Mild, THRUSH, 11/09/18) Patient History: Breast cancer MGM PGM FH: alcohol abuse FATHER, , Age:82 MOTHER, , Age:66 FH: atrial fibrillation FATHER, , Age:82 FH: breast cancer MGM, Onset:80 PA PGM FH: hypertension FATHER, , Age:82 MOTHER, , Age:66 BROTHER OR SISTER FH: kidney failure FATHER, , Age:82 BROTHER OR SISTER FH: leukemia BROTHER OR SISTER Hx Smoking: Yes Smoking Status: Current: Every Day Smoker Exposure to Second Hand Smoke?: No Caffeine Intake: Coffee Caffeine/Cups Per Day: 1-2 Hx Alcohol Use: No Hx Substance Use Disorder: No (Pt reports no use ever. 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 Audible exp wheezing when I walked in the room, but it improved with distraction. Moving air to the bases. Exp wheezing diffusely with deep breathing and slight exp wheeze in right apex with normal breathing) GI: Abd Soft and Non-Tender Extremities: No Edema Integumentary: No Jaundice, No Cyanosis Medical Decision Making Data Points Result Diagram: 11/09/18230511/09/182305 Item Value Date Time Neutrophils (%) (Auto) 73.4 % H 11/09/182305 Lymphocytes (%) (Auto) 18.7 % 11/09/182305 Monocytes (%) (Auto) 6.8 % 11/09/182305 Eosinophils (%) (Auto) 0.6 % 11/09/182305 Venous Blood pH 7.47 H 11/09/182337 Venous Blood Partial Pressure CO2 47 mmHg 11/09/182337 Venous Blood Partial Pressure O2 64 mmHg 11/09/182337 Venous Blood HCO3 34 mmol/L 11/09/182337 Venous Blood Oxygen Saturation 93 % 11/09/182337 Creatinine 1.20 mg/dl H 11/03/1858 Blood Urea Nitrogen 9 mg/dl 11/03/1858 Magnesium Level 1.6 mg/dl L 11/09/182305 Total Bilirubin 0.2 mg/dl 11/09/182305 Aspartate Amino Transf (AST/SGOT) 19 U/L 11/09/182305 Alanine Aminotransferase (ALT/SGPT) 30 U/L 11/09/182305 Alkaline Phosphatase 89 U/L 11/09/182305 Troponin I < 0.012 ng/ml 11/09/182305 EKG / Imaging EKG Interpretation Vent. Rate : 070 BPM Atrial Rate : 070 BPM P-R Int : 148 ms QRS Dur : 082 ms QT Int : 400 ms P-R-T Axes : 051 042 062 degrees QTc Int : 432 ms Normal sinus rhythm Septal infarct , age undetermined T wave abnormality, consider anterior ischemia When compared with ECG of 18-OCT-2018 14:15, Septal infarct is now present vs lead placement T wave inversion now evident in Anterior leads Imaging CXR - No findings of acute cardiopulmonary disease. Assessment and Plan Problems: (1) COPD exacerbation Status: Acute Assessment & Plan: She presented with about 24 hours of SOB. She continues to smoke about 2 cigarettes a day. She is frequently on courses of steroids and/or hospitalized. Her last dose of steroids was about a month ago, per the patient. She is at her baseline O2 requirement, is breathing comfortably, but continues to have expiratory wheezing. She was given Methylprednisolone, Nebs, and azithromycin in the ER. I offered to let her go home but she wanted to stay one night. Will continue the Methylprednisolone. She will be on DuoNebs, prn Albuterol. She will be continued on her chronic Symbicort. Will add Singulair to see if it helps. She needs to stop smoking. (2) Hypertension Status: Chronic Assessment & Plan: Continue chronic HCTZ. (3) RLS (restless legs syndrome) Status: Chronic Assessment & Plan: She is on chronic treatment with Mirapex. (4) CKD (chronic kidney disease) stage 3, GFR 30-59 ml/min Status: Chronic Assessment & Plan: Baseline creatinine is 1.1-1.3. Monitor kidney function. (5) Hypokalemia Status: Acute Assessment & Plan: She will get Mg 2g IV, and KCL 40mEq IV. BMP/Mg at 0800. (6) Persistent depressive disorder Status: Chronic Assessment & Plan: Continue chronic citalopram, prn hydroxyzine, and bupropion. QTc is wnl. (7) Morbid obesity Status: Chronic Venous Thromboembolism Antithrombotics Is Pt On Any Antithrombotics?: No Exam Sepsis Risk: No Definite Risk TIFFANIE MASSEY MD Nov 10, 2018 01:38
[2018-11-10 01:57] VITALS: BP 130/80
[2018-11-10] MEDS ORDERED: NS(*) 0.9% 1000 ML BAG 1,000 ML ONE (02:23)
[2018-11-10] MEDS: MONTELUKAST SODIUM 10 MG TAB PO SCH ×2 (02:53→20:39)
[2018-11-10] MEDS: KCL (*) 20 MEQ/100 ML PREMIX 100 ML IV SCH ×2 (04:06→06:32)
[2018-11-10] MEDS ORDERED: methylPREDNIS SUCC 125 MG/2ML IVP SCH (06:00)
[2018-11-10] MEDS: TIOTROPIUM BROM INH 18 MCG/CAP INH SCH (06:11)
[2018-11-10] MEDS: ALBUTEROL/IPRATROPIUM 3 ML NEB NEB SCH ×4 (06:12→17:11)
[2018-11-10] MEDS: BUDESO/FORMOT 160/4.5 MCG 6 GM INH SCH ×2 (06:12→17:11)
[2018-11-10] MEDS: ACETAMINOPHEN 325 MG TAB PO PRN ×2 (06:24→19:59)
[2018-11-10 06:58] VITALS: BP 122/63
[2018-11-10 08:43] VITALS: Ht 160 cm; Wt 120.2 kg
[2018-11-10] MEDS: HYDROCHLOROTHIAZIDE 25 MG TAB PO SCH (09:00)
[2018-11-10] MEDS: FAMOTIDINE 20 MG TAB PO SCH (09:23)
[2018-11-10] MEDS: CITALOPRAM HYDROBROM 20 MG TAB PO SCH (09:23)
[2018-11-10] MEDS: PANTOPRAZOLE SOD 40 MG TABEC PO SCH (09:23)
[2018-11-10] MEDS: buPROPion XL 150 MG TABCR PO SCH (09:23)
[2018-11-10] MEDS: hydrOXYzine PAMOATE 25 MG CAP PO PRN ×2 (09:49→16:23)
--- NOTE | 2018-11-10 09:50 | Antimicrobial Stewardship ---
Antimicrobial Time Out Antimicrobial Stewardship MD Service: Hospitalist Indications: Other (COPD) Antimicrobial Used AZITH AND CEFTRIAXONE Start Date: Nov 09, 2018 Culture Results: No Eligible for PO Conversion Eligable for PO Conversion: Yes Reviewed with Provider Reviewed w/ Provider on Rounds: No Comments Comments PATIENT GIVEN ROCEPHIN AND AZITHROMYCIN X 1 DOSE EACH IN ER FOR SUSPECTED RESP INFECTION, STOPPED AND BEING MANAGED COPD WITHOUT ABX THERAPY CONTINUATION. REASSESS IF NO CLINICAL IMPROVEMENT. TENZIN LICONA Nov 10, 2018 09:50
[2018-11-10 11:07] VITALS: BP 124/69
--- NOTE | 2018-11-10 11:10 | Hospitalist Progress Note ---
Subjective Progress Notes Subjective She was admitted with COPD exacerbation. She has some audible wheezes present, but otherwise has no complaints. Patient Complains of: Cardiovascular: No: Chest Pain Respiratory: Wheezing; No: Shortness of Breath Physical Exam Vital Signs Date Time Temp Pulse Resp B/P (MAP) Pulse Ox O2 Delivery O2 Flow Rate FiO2 11/10/18 09:35 91 Nasal Cannula 3.5 11/10/18 09:35 89 24 11/10/18 06:58 97.8 122/63 (82) Intake and Output 11/10/18 01:03 Intake Total 100 ml Balance 100 ml IV Total 100 ml General Appearance: Alert, Awake, No Acute Distress, Afebrile Neuro: No Gross deficits Cardiovascular: Regular Rate and Rhythm Respiratory: No Respiratory Distress, Other (expiratory wheezes noted throughout bilateral upper lung fountain) Extremities: Edema (non pitting edema present bilaterally) Integumentary: Skin Intact without Lesion / Mass Psych: Alert & Oriented X3, Appropriate Mood & Affect Result Diagram: 11/09/18 2360 11/10/18 7708 Monitor Interpretation: Normal Sinus Rhythm Assessment and Plan Problems: (1) COPD exacerbation Status: Acute Assessment & Plan: She presented with about 24 hours of SOB. She continues to smoke about 2 cigarettes a day. She is frequently on courses of steroids and/or hospitalized. Her last dose of steroids was about a month ago, per the patient. She is at her baseline O2 requirement, is breathing comfortably, but continues to have expiratory wheezing. She was given Methylprednisolone, Nebs, and azithromycin in the ER. I offered to let her go home but she wanted to stay one night. Will continue the Methylprednisolone. She will be on DuoNebs, prn Albuterol. She will be continued on her chronic Symbicort. Will add Singulair to see if it helps. She needs to stop smoking. (2) Hypertension Status: Chronic Assessment & Plan: Continue chronic HCTZ. (3) RLS (restless legs syndrome) Status: Chronic Assessment & Plan: She is on chronic treatment with Mirapex. (4) CKD (chronic kidney disease) stage 3, GFR 30-59 ml/min Status: Chronic Assessment & Plan: Baseline creatinine is 1.1-1.3. Monitor kidney function. (5) Hypokalemia Status: Acute Assessment & Plan: She will get Mg 2g IV, and KCL 40mEq IV. Resolved. (6) Persistent depressive disorder Status: Chronic Assessment & Plan: Continue chronic citalopram, prn hydroxyzine, and bupropion. QTc is wnl. (7) Morbid obesity Status: Chronic Exam Sepsis Risk: No Definite Risk SANTI RICE CONCERT MANAGER Nov 10, 2018 11:10
[2018-11-10 14:38] VITALS: BP 122/77
[2018-11-10 20:29] VITALS: BP 129/84
[2018-11-10] MEDS: MELATONIN 3 MG TAB PO SCH (20:39)
[2018-11-10] MEDS: PRAMIPEXOLE DIHYDROCHL 0.25 MG PO SCH (20:39)
[2018-11-10] MEDS ORDERED: methylPREDNIS SUCC 125 MG/2ML IVP ONE (21:00)
[2018-11-11] VITALS (7 sets, daily range): BP systolic 118–145; BP diastolic 73–89
[2018-11-11 05:51] LABS: PLATELET COUNT, AUTOMATED 211 K/uL (150-450)
[2018-11-11] MEDS: BUDESO/FORMOT 160/4.5 MCG 6 GM INH SCH ×2 (05:54→17:55)
[2018-11-11] MEDS: TIOTROPIUM BROM INH 18 MCG/CAP INH SCH (05:54)
[2018-11-11] MEDS: ALBUTEROL/IPRATROPIUM 3 ML NEB NEB SCH ×4 (05:54→17:55)
[2018-11-11] MEDS: ACETAMINOPHEN 325 MG TAB PO PRN ×2 (07:58→15:38)
--- NOTE | 2018-11-11 09:26 | Hospitalist Progress Note ---
Subjective Progress Notes Subjective She was admitted with COPD exacerbation. She has audibly noted expiratory wheeze upon entering the room. Patient Complains of: Cardiovascular: No: Chest Pain Respiratory: Wheezing; No: Shortness of Breath Physical Exam Vital Signs Date Time Temp Pulse Resp B/P (MAP) Pulse Ox O2 Delivery O2 Flow Rate FiO2 11/11/18 07:40 98.0 75 145/77 (99) 95 Nasal Cannula 3.5 11/11/18 05:55 16 Intake and Output 11/11/18 01:03 Intake Total 1998 ml Balance 1998 ml Intake Oral 1200 ml IV Total 799 ml # Voids 7 # Bowel Movements 1 General Appearance: Alert, Awake, No Acute Distress, Afebrile Neuro: No Gross deficits Cardiovascular: Regular Rate and Rhythm Respiratory: No Respiratory Distress, Other (expiratory wheezes heard throughout upper bilateral lung fountain) GI: Soft and Non-Tender Extremities: Edema (1+pitting edema to bilateral lower extermities) Psych: Alert & Oriented X3, Appropriate Mood & Affect Result Diagram: 11/11/18 0532 11/11/18 0532 Monitor Interpretation: Normal Sinus Rhythm Assessment and Plan Problems: (1) COPD exacerbation Status: Acute Assessment & Plan: She presented with about 24 hours of SOB. She continues to smoke about 2 cigarettes a day. She is frequently on courses of steroids and/or hospitalized. Her last dose of steroids was about a month ago, per the patient. She is at her baseline O2 requirement, is breathing comfortably, but continues to have expiratory wheezing. She was given Methylprednisolone, Nebs, and azithromycin in the ER. I offered to let her go home but she wanted to stay one night. Will switch to oral prednisone. She will be on DuoNebs, prn Albuterol. She will be continued on her chronic Symbicort. Will add Singulair to see if it helps. She needs to stop smoking. (2) Hypertension Status: Chronic Assessment & Plan: Continue chronic HCTZ. (3) RLS (restless legs syndrome) Status: Chronic Assessment & Plan: She is on chronic treatment with Mirapex. (4) CKD (chronic kidney disease) stage 3, GFR 30-59 ml/min Status: Chronic Assessment & Plan: Baseline creatinine is 1.1-1.3. Monitor kidney function. (5) Hypokalemia Status: Acute Assessment & Plan: She will get Mg 2g IV, and KCL 40mEq IV. Resolved. (6) Persistent depressive disorder Status: Chronic Assessment & Plan: Continue chronic citalopram, prn hydroxyzine, and bupropion. QTc is wnl. (7) Morbid obesity Status: Chronic Exam Sepsis Risk: No Definite Risk SANTI RICE OPTICAL SCIENTIST Nov 11, 2018 09:26
[2018-11-11] MEDS: predniSONE 20 MG TAB PO SCH (09:42)
[2018-11-11] MEDS: FAMOTIDINE 20 MG TAB PO SCH (09:42)
[2018-11-11] MEDS: PANTOPRAZOLE SOD 40 MG TABEC PO SCH (09:42)
[2018-11-11] MEDS: buPROPion XL 150 MG TABCR PO SCH (09:43)
[2018-11-11] MEDS: CITALOPRAM HYDROBROM 20 MG TAB PO SCH (09:43)
[2018-11-11] MEDS: HYDROCHLOROTHIAZIDE 25 MG TAB PO SCH (09:44)
[2018-11-11] MEDS: MELATONIN 3 MG TAB PO SCH (21:21)
[2018-11-11] MEDS: MONTELUKAST SODIUM 10 MG TAB PO SCH (21:21)
[2018-11-11] MEDS: PRAMIPEXOLE DIHYDROCHL 0.25 MG PO SCH (21:21)
[2018-11-11] MEDS ORDERED: IBUPROFEN 600 MG TAB PO ONE (21:30)
[2018-11-12] MEDS: ALBUTEROL/IPRATROPIUM 3 ML NEB NEB SCH ×2 (05:18→09:50)
[2018-11-12] MEDS: TIOTROPIUM BROM INH 18 MCG/CAP INH SCH (05:19)
[2018-11-12] MEDS: BUDESO/FORMOT 160/4.5 MCG 6 GM INH SCH (05:20)
[2018-11-12 07:26] VITALS: BP 136/70
[2018-11-12] MEDS: predniSONE 20 MG TAB PO SCH (08:41)
[2018-11-12] MEDS: buPROPion XL 150 MG TABCR PO SCH (08:41)
[2018-11-12] MEDS: FAMOTIDINE 20 MG TAB PO SCH (08:41)
[2018-11-12] MEDS: CITALOPRAM HYDROBROM 20 MG TAB PO SCH (08:42)
[2018-11-12] MEDS: PANTOPRAZOLE SOD 40 MG TABEC PO SCH (08:42)
[2018-11-12] MEDS: HYDROCHLOROTHIAZIDE 25 MG TAB PO SCH (08:42)
[2018-11-12 08:43] VITALS: BP 136/73
[2018-11-12] MEDS ORDERED: PRED-1 PO (10:26)
--- NOTE | 2018-11-12 10:30 | Hospitalist Depart ---
Discharge Summary Reason for Hosp/Final Diag: (1) COPD exacerbation Status: Acute Hospital Course & Plan: She presented with about 24 hours of SOB. She continues to smoke about 2 cigarettes a day. She is frequently on courses of steroids and/or hospitalized. Her last dose of steroids was about a month ago, per the patient. She is at her baseline O2 requirement, is breathing comfortably, but continues to have expiratory wheezing. She was given Methylprednisolone, Nebs, and azithromycin in the ER. She was switched to oral prednisone. She was placed on DuoNebs, prn Albuterol during admission. She will be continued on her chronic Symbicort. She needs to stop smoking. She will be sent home with long taper of steroids. She will follow up with PCP as scheduled. (2) Hypertension Status: Chronic Hospital Course & Plan: Continue chronic HCTZ. (3) RLS (restless legs syndrome) Status: Chronic Hospital Course & Plan: She is on chronic treatment with Mirapex. (4) CKD (chronic kidney disease) stage 3, GFR 30-59 ml/min Status: Chronic Hospital Course & Plan: Baseline creatinine is 1.1-1.3. Monitor kidney functio n. (5) Hypokalemia Status: Acute Hospital Course & Plan: She will get Mg 2g IV, and KCL 40mEq IV. Resolved. (6) Persistent depressive disorder Status: Chronic Hospital Course & Plan: Continue chronic citalopram, prn hydroxyzine, and bupropion. QTc is wnl. (7) Morbid obesity Status: Chronic Departure Latest Vital Signs Vital Signs 11/12/18 11/12/18 11/12/18 07:26 08:43 09:50 Temp 98.0 Pulse 80 Resp 18 B/P (MAP) 136/73 (94) Pulse Ox 96 O2 Delivery Nasal Cannula O2 Flow Rate 3.0 Weight (Pounds): 265 Result Diagram: 11/11/1853111/11/18531 Condition: Improved Discharge: Home, Self Care Discharge Instructions Home Meds Active Scripts Prednisone 10 Mg Tab (PREDNISONE 10 MG TAB) 10 Mg Tablet, 10 MG PO DIRECTED, #57 TAB Take 6 tabs for 2 days, then 5 for 3D, 4 for 3D, 3 for 3D, 2 for 3D, then 1 tab for 3 days, then stop Prov:SANTI RICE MEDICATION TECHNICIAN 11/12/18 Hydroxyzine Pamoate (VISTARIL) 25 Mg Capsule, 25-50 MG PO Q8H PRN for ANXIETY/INSOMNIA, #60 CAPSULE Take 1 in am and afternoon, and 2 at night for itching Prov:SKINNY TREVINO MD 10/06/18 Pantoprazole Sodium (PROTONIX) 40 Mg Granpkt.dr, 40 MG PO QDAY, #90 TAB 3 Refills Prov:SKINNY TREVINO MD 09/03/18 Azithromycin (ZITHROMAX) 250 Mg Tablet, 1 TAB PO DIRECTED, #36 TAB 3 Refills Take three times a week on , Wednesdays and Fridays. Prov:SKINNY TREVINO MD 07/30/18 Pramipexole Di-Hcl (MIRAPEX) 1 Mg Tablet, 1 MG PO DAILY, #90 TAB 3 Refills Prov:SKINNY TREVINO MD 07/30/18 Potassium Chloride (POTASSIUM CHLORIDE) 10 Meq Tab.er.prt, 10 MEQ PO QDAY for edema, #90 TAB 3 Refills Prov:SKINNY TREVINO MD 07/09/18 Famotidine (FAMOTIDINE) 20 Mg Tablet, 20 MG PO QDAY, #90 TAB 3 Refills Prov:SKINNY TREVINO MD 05/27/18 Hydrochlorothiazide (HYDROCHLOROTHIAZIDE) 25 Mg Tablet, 1 TAB PO QDAY, #30 TAB 11 Refills Prov:SKINNY TREVINO MD 05/05/18 Tiotropium [place] (SPIRIVA) 18 Mcg/Cap Inh, 2 PUFF INH DAILY, #1 INH 11 Refills Prov:SKINNY TRVEINO MD 05/14/17 Reported Medications Budesonide/Formoterol Fumarate (SYMBICORT 160-4.5 MCG INHALER) 10.2 Gm Inh, 10.2 GM INH BID, INH 09/10/18 Citalopram Hydrobromide (CITALOPRAM HBR) 20 Mg Tablet, 20 MG PO QAM, #5 TAB 08/31/18 Melatonin (MELATONIN) 10 Mg Capsule, 10 MG PO QHS, CAPSULE 07/11/18 Bupropion Hcl (WELLBUTRIN SR) 150 Mg Tablet.er, 150 MG PO QDAY, TAB 07/11/18 Oxygen (OXYGEN) Inha, 2 L INH QDAY, L 01/09/18 Cholecalciferol (Vitamin D3) (VITAMIN D3) 1,000 Unit Tablet, 1000 UNIT PO QDAY, TAB 06/20/17 Albuterol Sulfate 90 Mcg/Act (PROAIR HFA 90 MCG/ACT) 8.5 Gm Hfa.aer.ad, 2 PUFF IH Q4-6H PRN for DYSPNEA, INHALER 01/27/17 Multivitamin (MULTIVITAMINS) 1 Each Capsule, 1 EACH PO DAILY, CAPSULE 12/08/16 Discontinued Scripts Prednisone (PREDNISONE) 20 Mg Tablet, 20 MG PO DIRECTED, #60 TAB 0 Refills Take 3 tablets once a day for 5 days, then decrease to 2 1/2 tablets once a day for 5 days, then decrease to 2 tablets once a day for 5 days, then decrease to 1 1/2 tablets once a day for 5 days, then decrease to 1 tablet once a day for 5 days, then decrease to 1/2 tablet once a day for 6 days then stop. Prov:GARY RODRIGUEZ MD 09/21/18 Diet: Regular Activity: As Tolerated Special Instructions: Stop Smoking. Take Prednisone as directed. Follow up with Dr. Trevino as scheduled next week. Copies to: SKINNY TREVINO MD ; Venous Thromboembolism Antithrombotics Is Pt On Any Antithrombotics?: No SANTI RICE Nov 12, 2018 10:30
== END 2018-11-12 11:27 | disposition home or self-care (01) | DRG 191 ==
LOC: ER 20:20 → MED 11-10 01:18
PROVIDERS: ADMIT Internal Medicine; ATTEND Internal Medicine
DX: J44.1 Chronic obstructive pulmonary disease with (acute) exacerbation (principal); Z68.42 Body mass index [BMI] 45.0-49.9, adult; E66.01 Morbid (severe) obesity due to excess calories; E87.6 Hypokalemia; F17.210 Nicotine dependence, cigarettes, uncomplicated; G25.81 Restless legs syndrome; F34.1 Dysthymic disorder; I12.9 Hypertensive chronic kidney disease with stage 1 through stage 4 chronic kidney disease, or unspecified chronic kidney disease; N18.3 Chronic kidney disease, stage 3 (moderate); E03.9 Hypothyroidism, unspecified; Z88.2 Allergy status to sulfonamides; Z88.8 Allergy status to other drugs, medicaments and biological substances; Z91.19 Patient's noncompliance with other medical treatment and regimen
CPT/HCPCS: 36415; 71045; 82040; 82247; 82310; 82374; 82435; 82565; 82803; 82947; 83735; 84075; 84132; 84155; 84295; 84450; 84460; 84484; 84520; 85025; 87040; 93005; 94640; 94644; 96365; 96367; 99285; J0456; J0696; J2930; J3475; J3480; J3535; J7030; J7050; J7512; J7613; Q0177

== ENCOUNTER 2018-11-13 00:41 | Emergency (ER) | payer MEDICARE, BC ==
[2018-11-10 08:43] VITALS: Wt 126.3 kg
--- NOTE | 2018-11-13 00:46 | ER Report ---
History and Physical Time Seen By MD: 00:39 HPI/ROS CHIEF COMPLAINT: Chest pain, shortness of breath HISTORY OF PRESENT ILLNESS: 53-year-old female with a history of COPD dependent on 3 L of O2 was admitted to the hospital on 11/09/18 and discharged yesterday on 11/12/18. She was treated with serial nebulizer treatments. Patient felt well at home after discharge until 11:30 PM tonight when she developed sudden left-sided chest pain radiating to her left shoulder but not her left arm. Patient became short of breath with wheezing. On arrival EMS noted that she was mildly hypoxic on her usual 3 L. They applied nonrebreather and administered a nebulizer treatment and brought her to the emergency department for evaluation. Field EKG shows no evidence of acute ischemia. REVIEW OF SYSTEMS: Respiratory: As above Cardiovascular: As above Gastrointestinal: No vomiting, no abdominal pain. Musculoskeletal: No back pain. Allergies: Coded Allergies: aripiprazole (Verified Allergy, Intermediate, RASH, 11/13/18) escitalopram (Verified Allergy, Intermediate, RASH, 11/13/18) lithium (Verified Allergy, Intermediate, RASH, 11/13/18) lurasidone (Verified Allergy, Intermediate, 11/13/18) quetiapine (Verified Allergy, Intermediate, DIZZY, 11/13/18) DIzzy varenicline (Verified Allergy, Intermediate, SWELLING, 11/13/18) ciprofloxacin (Verified Allergy, Mild, N/V, 11/13/18) sulfamethoxazole (Verified Allergy, Mild, HIVES, 11/13/18) topiramate (Verified Allergy, Mild, UPSET STOMACH, 11/13/18) Upset stomach trimethoprim (Verified Allergy, Mild, HIVES, 11/13/18) metoprolol (Verified Allergy, Unknown, 11/13/18) dyspnea haloperidol (Verified Adverse Reaction, Severe, DYSTONIC REACTION, 11/13/18) adhesive tape (Verified Adverse Reaction, Mild, RASH, 11/13/18) fluticasone (Verified Adverse Reaction, Mild, THRUSH, 11/13/18) salmeterol (Verified Adverse Reaction, Mild, THRUSH, 11/13/18) Home Meds Active Scripts Prednisone 10 Mg Tab (PREDNISONE 10 MG TAB) 10 Mg Tablet, 10 MG PO DIRECTED, #57 TAB Take 6 tabs for 2 days, then 5 for 3D, 4 for 3D, 3 for 3D, 2 for 3D, then 1 tab for 3 days, then stop Prov:SANTI RICE BEE BREEDER 11/12/18 Hydroxyzine Pamoate (VISTARIL) 25 Mg Capsule, 25-50 MG PO Q8H PRN for ANXIETY/INSOMNIA, #60 CAPSULE Take 1 in am and afternoon, and 2 at night for itching Prov:SKINNY EMMANUEL MD 10/06/18 Pantoprazole Sodium (PROTONIX) 40 Mg Granpkt.dr, 40 MG PO QDAY, #90 TAB 3 Refills Prov:SKINNY EMMANUEL MD 09/03/18 Azithromycin (ZITHROMAX) 250 Mg Tablet, 1 TAB PO DIRECTED, #36 TAB 3 Refills Take three times a week on , Wednesdays and Fridays. Prov:SKINNY EMMANUEL MD 07/30/18 Pramipexole Di-Hcl (MIRAPEX) 1 Mg Tablet, 1 MG PO DAILY, #90 TAB 3 Refills Prov:SKINNY EMMANUEL MD 07/30/18 Potassium Chloride (POTASSIUM CHLORIDE) 10 Meq Tab.er.prt, 10 MEQ PO QDAY for edema, #90 TAB 3 Refills Prov:SKINNY EMMANUEL MD 07/09/18 Famotidine (FAMOTIDINE) 20 Mg Tablet, 20 MG PO QDAY, #90 TAB 3 Refills Prov:SKINNY EMMANUEL MD 05/27/18 Hydrochlorothiazide (HYDROCHLOROTHIAZIDE) 25 Mg Tablet, 1 TAB PO QDAY, #30 TAB 11 Refills Prov:SKINNY EMMANUEL MD 05/05/18 Tiotropium [place] (SPIRIVA) 18 Mcg/Cap Inh, 2 PUFF INH DAILY, #1 INH 11 Refills Prov:SKINNY EMMANUEL MD 05/14/17 Reported Medications Budesonide/Formoterol Fumarate (SYMBICORT 160-4.5 MCG INHALER) 10.2 Gm Inh, 10.2 GM INH BID, INH 09/10/18 Citalopram Hydrobromide (CITALOPRAM HBR) 20 Mg Tablet, 20 MG PO QAM, #5 TAB 08/31/18 Melatonin (MELATONIN) 10 Mg Capsule, 10 MG PO QHS, CAPSULE 07/11/18 Bupropion Hcl (WELLBUTRIN SR) 150 Mg Tablet.er, 150 MG PO QDAY, TAB 07/11/18 Oxygen (OXYGEN) Inha, 3 L INH QDAY, L 01/09/18 Cholecalciferol (Vitamin D3) (VITAMIN D3) 1,000 Unit Tablet, 1000 UNIT PO QDAY, TAB 06/20/17 Albuterol Sulfate 90 Mcg/Act (PROAIR HFA 90 MCG/ACT) 8.5 Gm Hfa.aer.ad, 2 PUFF I H Q4-6H PRN for DYSPNEA, INHALER 01/27/17 Multivitamin (MULTIVITAMINS) 1 Each Capsule, 1 EACH PO DAILY, CAPSULE 12/08/16 Discontinued Scripts Prednisone (PREDNISONE) 20 Mg Tablet, 20 MG PO DIRECTED, #60 TAB 0 Refills Take 3 tablets once a day for 5 days, then decrease to 2 1/2 tablets once a day for 5 days, then decrease to 2 tablets once a day for 5 days, then decrease to 1 1/2 tablets once a day for 5 days, then decrease to 1 tablet once a day for 5 days, then decrease to 1/2 tablet once a day for 6 days then stop. Prov:GARY RODRIGUEZ MD 09/21/18 Reviewed Nurses Notes: Yes Old Medical Records Reviewed: Yes Hx Smoking: Yes Smoking Status: Current: Every Day Smoker, Light Tobacco Smoker Exposure to Second Hand Smoke?: No Hx Substance Use Disorder: No Hx Alcohol Use: No Constitutional Vital Sign - Last 24 Hours 11/13/18 11/13/18 11/13/18 11/13/18 00:43 00:52 00:56 00:58 Temp 98.3 Pulse 99 82 Resp 24 24 B/P (MAP) 161/107 Pulse Ox 100 99 99 O2 Delivery Room Air Cool Aerosol O2 Flow Rate 10.0 8.0 11/13/18 11/13/18 11/13/18 11/13/18 00:58 01:00 01:10 01:26 Pulse 102 98 85 Resp 22 20 21 B/P (MAP) 160/107 (124) Pulse Ox 97 11/13/18 11/13/18 11/13/18 11/13/18 01:30 01:56 02:00 02:11 Pulse 78 Resp 24 B/P (MAP) 153/97 (115) 147/98 (114) Pulse Ox 98 99 O2 Delivery Cool Aerosol O2 Flow Rate 8.0 11/13/18 11/13/18 11/13/18 11/13/18 02:11 02:23 02:26 02:31 Pulse 96 94 79 82 Resp 18 18 23 23 Pulse Ox 96 96 11/13/18 11/13/18 02:46 03:01 Pulse 82 82 Pulse Ox 95 96 O2 Flow Rate 3 Intake and Output 11/12/18 11/12/18 11/13/18 15:03 23:03 07:03 Intake Total 100 ml Balance 100 ml Physical Exam General Appearance: The patient is alert, has no immediate need for airway pr otection and no current signs of toxicity. Mild respiratory distress, facial flushing. Vital signs stable, pulse ox stable on 100% O2. Respiratory rate mildly elevated, no increased work of breathing noted, audible expiratory wheezing which is chronic for her HEENT: Pupils equal and round no injection. Oropharynx with mild erythema Respiratory: Chest is non tender, lungs are clear to auscultation. Expiratory wheezing noted throughout lung fountain, chest wall tenderness on palpation Cardiac: regular rate and rhythm, no murmur Gastrointestinal: Abdomen is soft and non tender, no masses, bowel sounds normal. Musculoskeletal: Neck: Neck is supple and non tender. Extremities have full range of motion and are non tender. No edema, no calf tenderness Skin: No rashes or lesions. DIFFERENTIAL DIAGNOSIS: After history and physical exam differential diagnosis was considered for shortness of breath including but not limited to pulmonary infectious process, COPD, asthma, pulmonary embolus and congestive heart failure. Additionallychest pain including but not limited to myocardial ischemia, pericarditis pulmonary embolus, chest wall pain, pleural inflammation and pulmonary infectious causes. Medical Decision Making Data Points Result Diagram: 11/13/18 0040 11/13/18 0040 Laboratory Hematology Test 11/13/18 00:40 White Blood Count 9.8 k/uL (4.5-11.0) Red Blood Count 4.14 M/uL (4.17-5.56) L Hemoglobin 13.0 g/dL (12.0-16.0) Hematocrit 37.5 % (34.0-47.0) Mean Corpuscular Volume 90.7 fL (80.0-96.0) Mean Corpuscular Hemoglobin 31.4 pg (26.0-33.0) Mean Corpuscular Hemoglobin Concent 34.6 g/dL (32.0-36.0) Red Cell Distribution Width 13.0 % (11.5-14.5) Platelet Count 219 K/uL (150-450) Mean Platelet Volume 9.4 fL (7.2-11.1) Neutrophils (%) (Auto) 79.4 % (39.4-72.5) H Lymphocytes (%) (Auto) 11.4 % (17.6-49.6) L Monocytes (%) (Auto) 8.9 % (4.1-12.4) Eosinophils (%) (Auto) 0.1 % (0.4-6.7) L Basophils (%) (Auto) 0.2 % (0.3-1.4) L Nucleated RBC Relative Count (auto) 0.0 /100WBC Neutrophils # (Auto) 7.8 K/uL (2.0-7.4) H Lymphocytes # (Auto) 1.1 K/uL (1.3-3.6) L Monocytes # (Auto) 0.9 K/uL (0.3-1.0) Eosinophils # (Auto) 0.0 K/uL (0.0-0.5) Basophils # (Auto) 0.0 K/uL (0.0-0.1) Nucleated RBC Absolute Count (auto) 0.00 K/uL Chemistry Test 11/13/18 00:40 Sodium Level 139 mmol/L (137-145) Potassium Level 4.2 mmol/L (3.5-5.0) Chloride Level 98 mmol/L (98-107) Carbon Dioxide Level 33 mmol/L (22-31) Blood Urea Nitrogen 24 mg/dl (7-18) Creatinine 1.10 mg/dl (0.52-1.04) Glomerular Filtration Rate Calc 51.6 Random Glucose 105 mg/dl (75-110) Calcium Level 10.3 mg/dl (8.4-10.2) Total Bilirubin 0.2 mg/dl (0.2-1.3) Aspartate Amino Transf (AST/SGOT) 21 U/L (0-35) Alanine Aminotransferase (ALT/SGPT) 27 U/L (0-56) Alkaline Phosphatase 76 U/L (0-126) Troponin I < 0.012 ng/ml B-Type Natriuretic Peptide 103 pg/ml (0-100) Total Protein 7.3 g/dl (6.3-8.2) Albumin 4.2 g/dl (3.5-5.0) EKG/Imaging EKG Interpretation 12 lead EK Rhythm: normal sinus rhythm [place]: normal QRS: normal ST segments: normal, comparison to previous EKGs 11/09/18. There was a septal infarct noted which is resolved brought secondary to lead placement. On comparison to previous EKG 10/18/18, no significant change ED Course/Re-evaluation Clinical Indication for ER IV: IV Access ED Course Patient was admitted to an examination room. H&P was done. The differential diagnoses was considered. Patient returned with chest pain by ambulance after being discharged proximal to 12 hours earlier. She stated she doing well all day long. Her EKG was unremarkable. Her troponin returned negative. Her BNP was mildly elevated at 109. Her chest x-ray showed no obvious infiltrate. Her oxygen need was mildly up. Patient state her pain came on after she took her bedtime medications and lay down to sleep. I suspect she suffered some acid reflux and exacerbation of her COPD. She responded to a GI cocktail, Solu- Medrol IV and several DuoNeb's. She continued to have chest pain. She was given Tylenol 1000 mg IV. Her pain was improved. She was discharged home to follow-up with Dr. Elliott early next week. 11/13/2018 1:43:57 am was discussed with Dr. boogie Franks. He sees no indication for admission at this time. Patient be treated with IV Tylenol for her pain and discharged home to follow-up with primary care on Thursday if unimproved. Decision to Disposition Date: Nov 13, 2018 Decision to Disposition Time: 00:56 Depart Departure Latest Vital Signs Vital Signs Date Time Temp Pulse Resp B/P (MAP) Pulse Ox O2 Delivery O2 Flow Rate FiO2 11/13/18 03:01 82 96 3 11/13/18 02:31 23 11/13/18 02:11 Cool Aerosol 11/13/18 02:00 147/98 (114) 11/13/18 00:43 98.3 Core Temperature (Celsius): 37.23 Impression: Primary Impression: Chest pain Additional Impression: COPD exacerbation Condition: Improved Disposition: HOME OR SELF-CARE Referrals: SKINNY EMMANUEL MD (PCP) Patient Instructions: COPD (Chronic Obstructive Pulmonary Disease) (ED), Chest Pain (ED), Gastroesophageal Reflux Disease (ED) Additional Instructions: Follow-up with primary care early next week Problem Qualifiers Primary Impression: Chest pain Chest pain type: unspecified Qualified Codes: R07.9 - Chest pain, unspecified DENIA PUGA DO Nov 13, 2018 00:46
[2018-11-13] MEDS ORDERED: ALBUTEROL/IPRATROPIUM 3 ML NEB NEB ONE ×2 (00:50→01:50)
[2018-11-13] MEDS ORDERED: methylPREDNIS SUCC 125 MG/2ML IVP ONE (00:50)
[2018-11-13 01:07] LABS: PLATELET COUNT, AUTOMATED 219 K/uL (150-450)
--- NOTE | 2018-11-13 01:15 | EKG ---
FACILITY: [facility] [place] PATIENT NAME: FLORENCIO CRUZ : [id number] MR: [id number] V: [id number] EXAM DATE: ORDERING PHYSICIAN: DENIA PUGA TECHNOLOGIST: [place] Test Reason : CP Blood Pressure : / mmHG Vent. Rate : 088 BPM Atrial Rate : 088 BPM P-R Int : 140 ms QRS Dur : 078 ms QT Int : 368 ms P-R-T Axes : 068 040 055 degrees QTc Int : 445 ms Normal sinus rhythm Normal ECG When compared with ECG of 09-NOV-2018 20:11, Criteria for Septal infarct are no longer present T wave inversion no longer evident in Anterior leads Confirmed by TIFFANIE MASSEY ([id number]) on 11/13/2018 6:50:30 AM Referred By: Confirmed By:TIFFANIE MASSEY
[2018-11-13] MEDS ORDERED: ACETAMINOPHEN(*)1000 MG/100 ML 100 ML IVPB ONE (01:45)
--- NOTE | 2018-11-13 01:59 | RADIOLOGY IMAGING REPORT ---
FACILITY: [facility] PATIENT NAME: Natividad Loaiza : 1965 MR: [id number] V: [id number] EXAM DATE: ORDERING PHYSICIAN: DENIA PUGA TECHNOLOGIST: Location: Patient: Natividad Loaiza : 1965 Visit/Account:[id number] Date of Sevice: 11/13/2018 CHEST SINGLE AP COMPARISONS: Single view chest dated November 09, 2018 ADDITIONAL PERTINENT HISTORY: Chest pain FINDINGS: Cardiomediastinal silhouette: Negative. Pulmonary vasculature: Negative. Lung fountain: Decreased lung volumes with mild bibasilar atelectatic change. Pleural spaces: Negative. Osseous structures: Negative. Surrounding soft tissues: Negative. IMPRESSION: 1. Decreased lung volumes with minimal bibasilar atelectatic change. Report Dictated By: Rg Frederick MD at 11/13/2018 1:48 AM Report E-Signed By: Rg Frederick MD at 11/13/2018 1:52 AM WSN:[id number]
[2018-11-13 02:00] VITALS: BP 147/98
[2018-11-13] MEDS ORDERED: LIDOCAINE 2% VISC SLN 15ML UDC PO ONE (02:25)
[2018-11-13] MEDS ORDERED: MAG HYD/AL HYD/SIMETH 30ML UDC PO ONE (02:25)
== END 2018-11-13 03:11 | disposition home or self-care (01) ==
LOC: ER 00:46
DX: R07.9 Chest pain, unspecified (principal); J44.1 Chronic obstructive pulmonary disease with (acute) exacerbation
CPT/HCPCS: 71045; 83880; 84484; 85025; 93005; 94640; 96365; 96375; 99284; A9270; J0131; J2930; J7620; 82040; 82247; 82310; 82374; 82435; 82565; 82947; 84075; 84132; 84155; 84295; 84450; 84460; 84520

== ENCOUNTER → 2018-11-13 | Outpatient (CLI) | payer MEDICARE, BC ==
[2018-11-10 08:43] VITALS: BMI 46.9
== END ==
LOC: AMB 00:13
PROVIDERS: ATTEND Nurse Practitioner
DX: R07.9 Chest pain, unspecified (principal); R53.1 Weakness; I10 Essential (primary) hypertension; R06.00 Dyspnea, unspecified
CPT/HCPCS: A0425; A0427